=== PATIENT | female | born 1930 | race Hispanic/Latino ===

== ENCOUNTER 2017-01-13 10:02 | Day surgery (SDC) | payer MEDICARE, BC ==
[2016-03-26 16:55] VITALS: BMI 26.5
[2017-01-13] MEDS ORDERED: Bupivacaine 0.5% Inj(30mL) ONE (11:08)
[2017-01-13] MEDS ORDERED: Bupivacaine-Epi 0.25%-1:200,000 PF Inj ONE (11:08)
[2017-01-13] MEDS ORDERED: Bacitracin Ointment 30 GM TUBE ONE (11:24)
[2017-01-13] MEDS ORDERED: Lidocaine 1% Inj (20ml) IJ ONE ×2 (11:31)
--- NOTE | 2017-01-13 11:59 | PCM.SURG1 ---
Surgeon's Initial Post Op Note - Surgeon's Notes Surgeon: Dr. Peralta Remedy Developer: Godwin PGY1 Type of Anesthesia: Local Pre-Operative Diagnosis: Skin lesion R ear Operative Findings: see operative report Post-Operative Diagnosis: Skin lesion R ear Operation Performed: Punch biopsy of R ear skin lesion Specimen/Specimens Removed: 2 punch biopsies of R ear Estimated Blood Loss: EBL {In ML}: 2 Blood Products Given: N/A Drains Used: No Drains Post-Op Condition: Good Date of Surgery/Procedure: 01/13/17 Time of Surgery/Procedure: 11:15
[2017-01-13 12:06] VITALS: RESP 14; TEMP 98; O2SAT 95
[2017-01-13 12:08] VITALS: BP 172/72; PULSE 70
[2017-01-13] MEDS ORDERED: Lidocaine 1% Inj (20ml) ONE (12:09)
== END 2017-01-13 12:30 | disposition home or self-care (01) ==
LOC: OPSURG 10:02
PROVIDERS: ATTEND Surgery
DX: C44.212 Basal cell carcinoma of skin of right ear and external auricular canal (principal); I25.10 Atherosclerotic heart disease of native coronary artery without angina pectoris; E11.9 Type 2 diabetes mellitus without complications; G20 Parkinson's disease

== ENCOUNTER 2018-04-26 14:35 | Inpatient (IN) | payer MEDICARE, BC ==
[2018-04-26 14:50] VITALS: BMI 24.7
[2018-04-26] MEDS ORDERED: Bacitracin 500 Units/gm Oint Foilpak UD TOP ONE (15:16)
--- NOTE | 2018-04-26 15:23 | ED PDOC ---
Arrival/HPI <John Geller - Last Filed: 04/26/18 18:48> - General Historian: Patient - History of Present Illness Narrative History of Present Illness (Text): Patient is a 88 yr old female with PMH HTN, HLD, DM, and Parkinson's disease presents after multiple falls over the past 4-5 days. Patient is not the best historian but is here with her family who live in the apartment above her. They have noticed that she is more short of breath recently when ambulating in her apartment. Her fall was unwitnessed but she was able to call her son on the phone afterwards. She endorses pain in her left ankle which she "twisted" in one of the recent falls. She denies having hit her head or LOC. She indicates that she has had a cough and congestion over the past few days as well. She denies any ORTIZ, neck pain, SOB, CP, dizziness, abdominal pain, n/v, stool changes, dysuria and extremity weakness/numbness. 04/26/18 15:20 Time/Duration: Prior to Arrival, 1 week Symptom Onset: Gradual Symptom Course: Unchanged Context: Walking <Whitney Matthews - Last Filed: 04/26/18 19:12> - General Chief Complaint: Trauma Time Seen by Provider: 04/26/18 14:41 Past Medical History - Provider Review Nursing Documentation Reviewed: Yes - Infectious Disease Hx of Infectious Diseases: None - Tetanus Immunization Tetanus Immunization: Unknown - Reproductive Menopause: Yes - Cardiac Hx Cardiac Disorders: Yes Hx Hypertension: Yes - Pulmonary Hx Respiratory Disorders: Yes (SMOKES CIGARETTES 15 A DAY) - Neurological Hx Neurological Disorder: Yes Hx Parkinson's Disease: Yes - Endocrine/Metabolic Hx Diabetes Mellitus Type 2: Yes - Hematological/Oncological Hx Blood Transfusions: Yes - Integumentary Hx Dermatological Disorder: Yes - Musculoskeletal/Rheumatological Hx Falls: Yes (MULTIPLE) - Gastrointestinal Hx Gastrointestinal Disorders: Yes (GASTRIC CA-H/O HEMICOLECTOMY,GI BLEED) Hx Gastrointestinal Ulcer: Yes - Genitourinary/Gynecological Hx Genitourinary Disorders: Yes Hx Incontinence: Yes Hx Urinary Tract Infection: Yes - Psychiatric Hx Depression: Yes Hx Substance Use: No - Surgical History Hx Coronary Stent: Yes (01/22/13) Other/Comment: Ear Stent - Anesthesia Hx Anesthesia Reactions: No Hx Malignant Hyperthermia: No - Suicidal Assessment Feels Threatened In Home Enviroment: No <Whitney Matthews - Last Filed: 04/26/18 19:12> Family/Social History - Physician Review Nursing Documentation Reviewed: Yes Family/Social History: Unknown Family HX Smoking Status: Current Some Days Smoker Hx Alcohol Use: No Hx Substance Use: No Hx Substance Use Treatment: No <Whitney Matthews - Last Filed: 04/26/18 19:12> Allergies/Home Meds <John Geller - Last Filed: 04/26/18 18:48> <Whitney Matthews - Last Filed: 04/26/18 19:12> Allergies/Adverse Reactions: Allergies Penicillins Allergy (Verified 03/26/16 16:56) ANAPHYLAXIS Sulfa (Sulfonamide Antibiotics) Allergy (Verified 03/26/16 16:56) ANAPHYLAXIS Home Medications: Home Meds Medication Instructions Recorded Confirmed Carbidopa/Levodopa/Entacapone 1 tab PO TID 01/20/12 01/13/17 [Stalevo 50 12.5 mg-200 mg-50 mg] Desvenlafaxine Succinate [Pristiq] 50 mg PO DAILY 01/20/12 01/13/17 Rasagiline Mesylate [Azilect] 1 mg PO DAILY 09/23/13 01/13/17 Aspirin [Aspirin Chewable] 81 mg PO DAILY 02/06/16 01/13/17 Lisinopril [Zestril] 20 mg PO DAILY 02/06/16 01/13/17 Metoprolol Tartrate 25 mg PO BID 02/06/16 01/13/17 SITagliptin [Januvia] 100 mg PO DAILY 04/01/16 01/13/17 Glipizide [Glipizide Xl] 10 mg PO BID 01/13/17 01/13/17 Review of Systems - Physician Review All systems were reviewed & negative as marked: Yes - Review of Systems Constitutional: absent: Fatigue, Weight Change, Fevers Eyes: absent: Vision Changes ENT: absent: Hearing Changes Respiratory: Cough, Sputum. absent: SOB, Wheezing Cardiovascular: absent: Chest Pain, Syncope Gastrointestinal: absent: Abdominal Pain, Stool Changes, Constipation, Diarrhea, Nausea, Vomiting, Hematochezia, Hematemesis Genitourinary Female: absent: Dysuria Musculoskeletal: Arthralgias (left ankle), Joint Swelling (left ankle). absent: Back Pain, Neck Pain Skin: absent: Rash Neurological: absent: Headache, Dizziness, Focal Weakness, Facial Droop <Whitney Matthews - Last Filed: 04/26/18 19:12> Physical Exam Vital Signs Temp Pulse Resp BP Pulse Ox 04/26/18 15:26 98.1 F 89 18 141/87 95 <John Geller - Last Filed: 04/26/18 18:48> Vital Signs Reviewed: Yes Temperature: Afebrile Blood Pressure: Normal Pulse: Regular Respiratory Rate: Normal Appearance: Positive for: Well-Appearing, Non-Toxic, Comfortable Pain Distress: Mild Mental Status: Positive for: Alert and Oriented X 3 - Systems Exam Head: Present: Atraumatic, Normocephalic Extroacular Muscles: Present: EOMI Mouth: Present: Moist Mucous Membranes Neck: Present: Normal Range of Motion Respiratory/Chest: Present: Good Air Exchange. No: Respiratory Distress, Accessory Muscle Use Cardiovascular: Present: Regular Rate and Rhythm, Normal S1, S2. No: Murmurs Abdomen: No: Tenderness, Distention, Peritoneal Signs Upper Extremity: Present: Normal ROM, NORMAL PULSES, Other (multiple small ecchymotic areas consistent with multiple falls). No: Cyanosis, Edema, Tenderness, Swelling Lower Extremity: Present: Edema (left ankle), NORMAL PULSES, Tenderness (left ankle), Swelling (left ankle), Neurovascularly Intact, Capillary Refill < 2 s. No: CALF TENDERNESS, Normal ROM (decreased ROM d/t swelling at left nakle normal ROm in all other lowere extremity joints) Neurological: Present: GCS=15, CN II-XII Intact, Speech Normal Skin: Present: Warm, Dry, Other (ecchymotic swollen left ankle with abrasion over left ledial hallux, scattered ecchymosis over lower legs bilaterally) Psychiatric: Present: Alert, Oriented x 3, Normal Concentration. No: Normal Insight <Whitney Matthews - Last Filed: 04/26/18 19:12> Medical Decision Making ED Course and Treatment: 04/26/18 18:[address] meza. patient to be admitted for frequent falls, sustained left lateral mall fracture, rule out sepsis, consult to dr. hopper. patient is high risk for more falls and will require admission. - Lab Interpretations Lab Results: Total Bilirubin 0.5 mg/dL (0.2-1.3) 04/26/18 15:50 AST 34 U/L (14-36) 04/26/18 15:50 ALT 16 U/L (7-56) 04/26/18 15:50 Alkaline Phosphatase 101 U/L (38-126) 04/26/18 15:50 Total Protein 7.0 g/dL (5.8-8.3) 04/26/18 15:50 Albumin 3.4 g/dL (3.0-4.8) 04/26/18 15:50 Globulin 3.6 gm/dL 04/26/18 15:50 Albumin/Globulin Ratio 1.0 (1.1-1.8) L 04/26/18 15:50 - RAD Interpretation Narrative RAD Interpretations (Text): 04/26/18 18:22 cxr my read: no focal infiltrate, no ptx, no wide mediastinum Radiology Orders: 04/26/18 15:12 CERVICAL SPINE W/O CONTRAST [CT] Stat HEAD W/O CONTRAST [CT] Stat CHEST ONE VIEW [RAD] Stat ANKLE LEFT 3 VIEWS ROUTINE [RAD] Stat PELVIS ONE VIEW [RAD] Stat Director Of Undergraduate Admissions: ED Physician - Medication Orders Current Medication Orders: Discontinued Medications Bacitracin (Bacitracin) 1 ea TOP ONCE ONE Stop: 04/26/18 15:17 Oxycodone/Acetaminophen (Percocet 5/325 Mg Tab) 1 tab PO STAT STA Stop: 04/26/18 18:10 Last Admin: 04/26/18 18:21 Dose: 1 tab MAR Pain Assessment Document 04/26/18 18:21 [place] (Rec: 04/26/18 18:21 [place] [facility] [place]-ER-20) Pain Reassessment Is this a pain reassessment? No Sleep Is patient sleeping during reassessment? No Presence of Pain Presence of Pain Yes Pain Scale Used Protocol: PSCALES Pain Scale Used Numeric Location Left, Right or Bilateral Left Pain Location Body Site Ankle Description Intensity of Pain at present 6 <John Geller - Last Filed: 04/26/18 18:48> ED Course and Treatment: 04/26/18 15:39 Impression: 88 yr old female with HTN, HLD, Dm and Parkinsons disease presenting after multiple falls of unknown cause and swollen left ankle Plan: CBC CMP UA and culture CT head CT cervical spine CXR pelvis XR left ankle XR reassess and dispo 04/26/18 15:48 Pt complaining of pain in left ankle given percocet 04/26/18 18:[address] meza. patient to be admitted for frequent falls, sustained left lateral mall fracture, rule out sepsis, consult to dr. hopper. patient is high risk for more falls and will require admission. 04/26/18 18:48 - RAD Interpretation Radiology Orders: 04/26/18 15:12 CERVICAL SPINE W/O CONTRAST [CT] Stat HEAD W/O CONTRAST [CT] Stat CHEST TWO VIEWS (PA/LAT) [RAD] Stat ANKLE LEFT 3 VIEWS ROUTINE [RAD] Stat PELVIS ONE VIEW [RAD] Stat - Medication Orders Current Medication Orders: Bacitracin (Bacitracin) 1 ea TOP ONCE ONE Stop: 04/26/18 15:17 <Whitney Matthews - Last Filed: 04/26/18 19:12> Disposition/Present on Arrival - Present on Arrival Any Indicators Present on Arrival: No - Disposition Have Diagnosis and Disposition been Completed?: Yes Disposition Time: 18:49 Patient Plan: Admission <John Geller - Last Filed: 04/26/18 18:48> - Present on Arrival Any Indicators Present on Arrival: No History of DVT/PE: No History of Uncontrolled Diabetes: No Urinary Catheter: No History of Decub. Ulcer: No History Surgical Site Infection Following: None - Disposition Have Diagnosis and Disposition been Completed?: Yes Patient Plan: Admission <Whitney Matthews - Last Filed: 04/26/18 19:12> - Disposition Diagnosis: Falls frequently, Leukocytosis, Ankle fracture Disposition: HOSPITALIZED Condition: STABLE
[2018-04-26 16:27] LABS: ALBUMIN 3.4 g/dL (3.0-4.8); CALCIUM 8.4 mg/dL (8.4-10.5)
[2018-04-26 16:28] LABS: BASO # 0.02 K/mm3 (0.0-2.0); BASO % 0.1 % (0.0-3.0); LYMPH # 3.9 (1.2-3.4); LYMPH % 19.4 % (22.0-35.0); MEAN CELL VOLUME 89.6 fl (80.0-105.0); MEAN CORPUSCULAR HEMOGLOBIN 29.7 pg (25.0-35.0); MEAN CORPUSCULAR HGB CONC 33.1 g/dl (31.0-37.0); MEAN PLATELET VOLUME 9.6 fl (7.0-11.0); MONO # 1.2 (0.1-0.6); MONO % 5.8 % (1.0-6.0); RBC 3.37 10^6/uL (3.5-6.1); RED CELL DISTRIBUTION WIDTH 12.9 % (11.5-14.5)
--- NOTE | 2018-04-26 17:46 | CT ---
Date of service: 04/26/2018 PROCEDURE: CT HEAD WITHOUT CONTRAST. HISTORY: fall COMPARISON: Comparison is made to the previous study dated 03/26/2016 TECHNIQUE: Axial computed tomography images were obtained through the head/brain without intravenous contrast. Radiation dose: Total exam DLP = 934.93 mGy-cm. This CT exam was performed using one or more of the following dose reduction techniques: Automated exposure control, adjustment of the mA and/or kV according to patient size, and/or use of iterative reconstruction technique. FINDINGS: HEMORRHAGE: No evidence of acute intracranial hemorrhage intracranial collection mass effect or midline shift. BRAIN: Foci of encephalomalacia at right frontal and right temporal parietal lobes are again noted suggestive of old infarction. Volume loss and chronic microvascular white matter ischemic disease are also again noted. VENTRICLES: Unremarkable. No hydrocephalus. CALVARIUM: Unremarkable. PARANASAL SINUSES: Unremarkable as visualized. No significant inflammatory changes. MASTOID AIR CELLS: Unremarkable as visualized. No inflammatory changes. OTHER FINDINGS: None. IMPRESSION: No evidence of acute intracranial hemorrhage intracranial collection mass effect or midline shift. No significant interval changes noted since the previous exam.
--- NOTE | 2018-04-26 17:53 | CT ---
Date of service: 04/26/2018 PROCEDURE: CT Cervical Spine without contrast HISTORY: fall COMPARISON: None available. TECHNIQUE: Axial computed tomography images were obtained of the cervical spine without the use of intravenous contrast. Coronal and sagittal reformatted images were created and reviewed. Radiation dose: Total exam DLP = 449.96 mGy-cm. This CT exam was performed using one or more of the following dose reduction techniques: Automated exposure control, adjustment of the mA and/or kV according to patient size, and/or use of iterative reconstruction technique. FINDINGS: VERTEBRAE: No fracture. There is anterior spondylolisthesis noted at C7-T1. No destructive bony lesion. DISCS/SPINAL CANAL/NEURAL FORAMINA: There is a small to moderate size posterior osteophyte bulging disc complex at C3-C4, C4-C5 C5-C6 and C6-C7 which resulting in mild spinal and neural foraminal narrowing. There is severe narrowing of the intervertebral disc is space at C4-C5 and moderate to severe narrowing of the intervertebral disc is space at C5-C6 and C6-C7. PARASPINAL SOFT TISSUES: Unremarkable. OTHER FINDINGS: None IMPRESSION: No evidence of acute fracture or acute traumatic subluxation. Moderate to mildly severe degenerative changes as discussed above.
[2018-04-26] MEDS ORDERED: Oxycodone/Acetaminophen 5/325 mg Tab PO STA (18:09)
--- NOTE | 2018-04-26 18:20 | RAD ---
Date of service: 04/26/2018 PROCEDURE: Radiographs of the pelvis. HISTORY: fall COMPARISON: None. FINDINGS: BONES: Pelvic Bones: Diffuse osteopenic changes noted. No evidence of acute fracture P Hips: Osteoarthritic degenerative changes. JOINTS: Sacroiliac Joints: Osteoarthritic degenerative changes Pubic Symphysis: Arthritic changes. OTHER FINDINGS: Severe degenerative changes noted at L4-L5 IMPRESSION: No evidence of acute fracture or dislocation. Arthritic degenerative changes.
--- NOTE | 2018-04-26 18:22 | RAD ---
Date of service: 04/26/2018 PROCEDURE: Left Ankle Radiographs. HISTORY: fall COMPARISON: None available. FINDINGS: BONES: There is acute slightly displaced fracture at the distal left fibula. There is a small displaced bony fragment seen anterior to the left ankle joint likely from the distal fibula. JOINTS: Mild osteoarthritis.. Ankle mortise maintained. Talar dome intact SOFT TISSUES: Soft tissue swelling seen around the left OTHER FINDINGS: Ankle. IMPRESSION: Acute displaced fracture at the distal left fibula. Small bony fragment seen anterior to the left ankle joint of uncertain donor likely from the distal fibula.
--- NOTE | 2018-04-26 18:23 | RAD ---
Date of service: 04/26/2018 PROCEDURE: CHEST RADIOGRAPH, 1 VIEW HISTORY: fall COMPARISON: 04/14/2017 FINDINGS: LUNGS: No evidence of new infiltrate or consolidation in the lungs. Mild pulmonary vascular congestion. PLEURA: No pneumothorax or pleural fluid seen. CARDIOVASCULAR: No aortic atherosclerotic calcification present. Normal. OSSEOUS STRUCTURES: No significant abnormalities. VISUALIZED UPPER ABDOMEN: Normal. OTHER FINDINGS: None. IMPRESSION: Mild pulmonary vascular congestion.
[2018-04-26 18:51] LABS: VENOUS BLOOD GAS PO2 30 mm/Hg (30-55); VENOUS BLOOD PH 7.35 (7.32-7.43)
[2018-04-26 19:08] LABS: PH,URINE 5.5 (4.7-8.0); URINE APPEARANCE SL CLOUDY (CLEAR); URINE BILIRUBIN NEGATIVE (NEGATIVE); URINE BLOOD MODERATE (NEGATIVE); URINE COLOR AMBER (YELLOW); URINE GLUCOSE (UA) 100 mg/dL (NEGATIVE); URINE LEUKOCYTE ESTERASE NEGATIVE Leu/uL (NEGATIVE); URINE PROTEIN 100 mg/dL (<30 mg/dL); URINE UROBILINOGEN 0.2 E.U./dL (<1 E.U./dL)
[2018-04-26 19:14] LABS: URINE AMORPHOUS SEDIMENT MODERATE /hpf; URINE BACTERIA SMALL /hpf; URINE RBC 25 - 30 /hpf (0-2)
[2018-04-26] MEDS ORDERED: Sodium Chloride 0.9% 1,000 ML IV SCH (20:30)
[2018-04-26] MEDS: Morphine 2 mg/ml ISec IVP PRN (21:45)
[2018-04-26] MEDS: Insulin Reg-MEDIUM-Coverage SC SCH (23:03)
--- NOTE | 2018-04-27 00:06 | HP ---
HISTORY OF PRESENT ILLNESS: The patient is an 88-year-old woman with a past medical history of Parkinson disease with recurrent falls who presented s/p mechanical fall with resultant left ankle trauma. The patient has been noted by her son to be deteriorating over the past several weeks and has fallen multiple times at home. Arrangements were being made for home services and physical therapy. On the day of presentation to the ED the patient sustained another mechanical fall with resultant trauma to her left ankle. She reported immediate onset of severe pain and inability to bear weight as well as edema and bruising. Due to the severe pain she was brought to the ED for evaluation. In the ED she was afebrile and hemodynamically stable but a moderate distress secondary to left ankle pain. An x-ray demonstrated an acute displaced fracture to the distal left fibula. She was started on analgesics and subsequently admitted for orthopedic evaluation. PAST MEDICAL HISTORY: As per HPI, also the anemia of chronic disease, hypertension, CAD s/p PCI with stent placement, non-insulin dependent diabetes mellitus, remote history of gastric cancer s/p ex-lap s/p subtotal gastrectomy, history of chronic lymphocytic leukemia and a remote history of CVA. PAST SURGICAL HISTORY: Exploratory laparotomy with subtotal gastrectomy. ALLERGIES: Penicillin and sulfas. MEDICATIONS: Januvia 50 mg p.o. daily, Glyburide 5 mg p.o. b.i.d., Stalevo 150 mg p.o. t.i.d., Lopressor 12.5 mg p.o. b.i.d., Lisinopril 10 mg p.o. daily, Aspirin 81 mg p.o. daily, Pristiq 50 mg p.o. daily and Azilect 1 mg p.o. daily. FAMILY HISTORY: Noncontributory. SOCIAL HISTORY: The patient reports a former 30 pack-year smoking history. She denies alcohol use or illicit drug abuse. REVIEW OF SYSTEMS: Positive for unsteady gait, weakness and recurrent falls. Negative for chest pain, palpitations, orthopnea, lower extremity edema, claudication fevers, chills, rigors, nausea, vomiting or diarrhea. PHYSICAL EXAMINATION: VITAL SIGNS: Temperature 98.1, pulse 89, blood pressure 141/87, respiratory rate 18, oxygen saturation 95% on room air. GENERAL: Elderly woman appearing her stated age, lying in bed in moderate distress secondary to left ankle pain. HEENT: PERRL, EOMI. No scleral icterus. Conjunctival pallor is noted. NECK: No JVD. CARDIOPULMONARY: Regular rate and rhythm. Normal S1, S2. LUNGS: Clear to auscultation. ABDOMEN: Normoactive bowel sounds. Soft, nontender, nondistended. EXTREMITIES: No edema. Left ankle with mild edema and bruising tender to palpation. NEUROLOGIC: Awake, alert and oriented x 3. No focal motor deficits. LABORATORY DATA: WBC 20 with 75% neutrophils, hemoglobin 10, hematocrit 30, platelets 297. Sodium 138, potassium 4.3, chloride 107, bicarb 24, BUN 26, creatinine 1.5, glucose 254. IMAGING STUDIES: 1. Chest x-ray demonstrates mild pulmonary vascular congestion. 2. Left ankle x-ray demonstrates acute displaced fracture to the left distal fibula. 3. Pelvic x-ray demonstrates arthritic changes but otherwise no acute pathology. 4. CT of the head without contrast demonstrates no acute pathology. 5. CT of the C-spine without contrast demonstrates moderate to severe degenerative changes but otherwise no acute pathology. ASSESSMENT: The patient is an 88-year-old woman with a past medical history of Parkinson disease with recurrent falls who presented s/p mechanical fall with resultant left ankle fracture. PLAN: 1. Acute displaced fracture of the distal left fibula. Orthopedic evaluation with Dr. Hendrix is pending. We will start Morphine 0.5 mg IV q. 6 hours p.r.n. pain. We will start Colace 100 mg p.o. b.i.d. for bowel regimen. The patient is an intermediate risk patient for an intermediate risk procedure and may proceed to the OR without further cardiopulmonary evaluation. 2. CAD s/p PCI with stent placement. Resume Lopressor 12.5 mg p.o. b.i.d. and Aspirin 81 mg p.o. daily. The patient dclines statin therapy due to history of myopathy. 3. Hypertension. Blood pressure controlled. Resume Lopressor 12.5 mg p.o. b.i.d. and lisinopril 10 mg p.o. daily. 4. Parkinson disease. Resume Stalevo 150 mg p.o. t.i.d. 5. Anemia of chronic disease. Labs demonstrate stable Hb. We will continue to monitor CBC daily and transfuse as needed. 6. Non-insulin dependent diabetes mellitus. We will repeat a HbA1c. Start medium-dose insulin sliding scale for coverage. Monitor fingerstick. 7. History of gastric cancer s/p subtotal gastrectomy. 8. History of chronic lymphocytic leukemia. 9. Acute kidney injury, likely secondary to prerenal azotemia. We will start gentle IV fluid hydration with NS at 75 mL per hour. 10. Prophylaxis. GI prophylaxis not indicated as the patient is eating. Continue with Heparin for DVT prophylaxis. CODE STATUS: Full code. Antonio Devi MD [facility]
[2018-04-27] MEDS: Morphine 2 mg/ml ISec IVP PRN ×2 (04:54→09:35)
[2018-04-27 06:52] LABS: BASO # 0.01 K/mm3 (0.0-2.0); BASO % 0.1 % (0.0-3.0); HEMOGLOBIN 8.9 g/dL (12.0-16.0); LYMPH # 3.5 (1.2-3.4); MEAN CELL VOLUME 89.4 fl (80.0-105.0); MEAN CORPUSCULAR HEMOGLOBIN 29.4 pg (25.0-35.0); MEAN CORPUSCULAR HGB CONC 32.8 g/dl (31.0-37.0); MEAN PLATELET VOLUME 9.2 fl (7.0-11.0); MONO % 6.1 % (1.0-6.0); RBC 3.03 10^6/uL (3.5-6.1); RED CELL DISTRIBUTION WIDTH 12.9 % (11.5-14.5); WHITE BLOOD COUNT 15.7 10^3/uL (4.5-11.0)
[2018-04-27 07:00] LABS: INR 1.23; PROTHROMBIN TIME 13.9 SECONDS (9.4-12.5)
[2018-04-27 07:25] LABS: ALB/GLOB RATIO 0.9 (1.1-1.8); CALCIUM 7.9 mg/dL (8.4-10.5)
[2018-04-27] MEDS: Insulin Reg-MEDIUM-Coverage SC SCH ×3 (09:26→17:25)
[2018-04-27] MEDS: Carbidopa/Levodopa/Entacapone 37.5mg-150mg-200mg PO SCH ×3 (09:38→17:26)
--- NOTE | 2018-04-27 10:13 | CARD ---
APPROVED REPORT Date of service: 04/26/2018 EKG Measurement Heart [id number] <Conclusion> Normal sinus rhythm Left axis deviation Incomplete left bundle branch block Left ventricular hypertrophy with repolarization abnormality Abnormal ECG
--- NOTE | 2018-04-27 12:12 | PN ---
SUBJECTIVE: The patient was seen and examined at bedside on the general medical gurrola. No acute events overnight. She has been evaluated by Dr. Hendrix of Orthopedic Surgery and recommendations were made for conservative medical management. This morning she feels okay but states her pain is not adequately controlled with her current analgesic regimen. Otherwise she offers no complaints. OBJECTIVE: VITAL SIGNS: Temperature 99, pulse 109, blood pressure 107/53, respiratory rate 20, oxygen saturation 93% on room air. GENERAL: Elderly woman, appearing her stated age, lying in bed in no apparent distress. HEENT: PERRL, EOMI. No scleral icterus. Conjunctival pallor is noted. NECK: No JVD. LUNGS: Clear to auscultation. CARDIOVASCULAR: Regular rate and rhythm. Normal S1 and S2. ABDOMEN: Normoactive bowel sounds. Soft, nontender, nondistended. EXTREMITIES: Left ankle with River wrapping in place with ecchymosis noted. NEUROLOGIC: Awake, alert and oriented x 3. No focal motor deficits. LABORATORY DATA: WBC 15.7 with 72% neutrophils, hemoglobin 8.9, hematocrit 27, platelets 276. Sodium 136, potassium 4.2, chloride 110, bicarb 22, BUN 26, creatinine 1.4, glucose 210. ASSESSMENT: The patient is an 88-year-old woman with a past medical history of Parkinson disease with recurrent falls who presented s/p mechanical fall with resultant left ankle fracture. PLAN: 1. Acute fracture of the distal left fibula. Input from Dr. Hendrix noted and no need for acute surgical intervention. Recommendations were made for conservative medical management. PT evaluation pending. Continue with care as per Dr. Hendrix. We will change analgesics to Morphine 0.5 mg IV q. 4 hours p.r.n. pain. Continue Colace 100 mg p.o. b.i.d. for bowel regimen. 2. CAD s/p PCI with stent placement. Continue Lopressor 12.5 mg p.o. b.i.d. and Aspirin 81 mg p.o. daily. The patient is not on statin therapy due to history of myopathy. 3. Hypertension. BP controlled. Continue Lopressor 12.5 mg p.o. b.i.d. and Lisinopril 10 mg p.o. daily. 4. Parkinson disease. Continue Stalevo 150 mg p.o. t.i.d. 5. Anemia of chronic disease. Continue to monitor CBC and transfuse as needed. 6. Non-insulin dependent diabetes mellitus. Repeat A1c pending. Continue medium-dose insulin sliding scale for coverage. Monitor fingersticks 7. History of gastric cancer s/p subtotal gastrectomy 8. History of chronic lymphocytic leukemia. 9. Prophylaxis. GI prophylaxis not indicated as the patient is eating. Continue with Heparin for DVT prophylaxis. CODE STATUS: Full code. Antonio Devi MD [facility]
--- NOTE | 2018-04-27 19:21 | CON ---
DATE: 04/27/2018 ORTHOPEDIC CONSULTATION LOCATION: Room 562, bed 1. HISTORY OF PRESENT ILLNESS: The patient is an 88-year-old female who lives alone, slipped and fell by history from her daughter about a week ago, then she re-fell last night and aggravated the preexisting injury from a week ago. The left ankle is ecchymotic, both medially and laterally, but has minimal pain on the medial side where the deltoid ligament is, but the fracture is on the lateral malleolus, which is minimally displaced and very distal, so we will treat her without surgery. When the swelling goes down, we will put her on a medium-sized removable cast boot when the swelling and pain subside. Actually she should be going to a facility that will watch her closer than living at home alone, so the social media senior associate hopefully could help her provide a place at [facility] for 3 to 4 weeks until she gets on her feet and probably will not be able to put the fracture boot on until the swelling and pain subside in 2 to 3 days. FINAL DIAGNOSIS: Stable left ankle fracture, compatible with conservative therapy, which is a removable cast boot once the swelling goes down in 2 to 3 days. I will follow her closely if and when she goes to subacute rehab at [facility]. Anil Hendrix DO [facility]
[2018-04-28] MEDS: Insulin Reg-MEDIUM-Coverage SC SCH ×5 (00:15→23:07)
[2018-04-28] MEDS ORDERED: levoFLOXacin 750 mg in D5W 750 MG/150 ML BAG IVPB SCH (01:00)
--- NOTE | 2018-04-28 01:25 | CP.PCM.PN ---
<Shravan Dunne - Last Filed: 04/28/18 01:16> Subjective - Date & Time of Evaluation Date of Evaluation: 04/28/18 Time of Evaluation: 01:16 - Subjective Subjective: Came to bedside to evaluate pt for reported O2 sat of 82%; per RN pt had earlier order of Duonebs q4 h prn that fell off and needed renewal of order. At arrival to bedside pt was receiving duoneb treatment by respiratory therapist and was tachypneic, tachycardic, and demonstrating worsening shortness of breath on exam. Per RN this is the first time pt has had this episode. Pt admitted for L ankle fracture s/p fall, prior PMhx Parkinson's disease with recurrent falls, anemia of chronic disease, HTN, CAD s/p PCI with stent placement, NIDDM, remote hx gastric ca s/p ex-lap s/p subtotal gastrectomy, hx CLL and remote hx CVA. Further HPI and ROS unobtainable due to current mental status of pt. Exam: VS: BP 190/115, P 140, O2 sat 90% on 50% FiO2 Gen: uncomfortable appearing HEENT: NCAT, PERRLA Heart: normal S1/s2, no m/r/g, tachycardic Lungs: crackles heard in lower lung bases b/l, more prominent on R side Abd: soft, NTND, normal BS x4 Exts: no c/c/e Neuro: AAOx2, no gross deficits on exam A/P: 88 F PMHx Parkinson's disease with recurrent falls, anemia of chronic disease, HTN, CAD s/p PCI with stent placement, NIDDM, remote hx gastric ca s/p ex-lap s/p subtotal gastrectomy, hx CLL and remote hx CVA, admitted for L ankle fx s/p fall. Presenting with worsening sob. R/o PNA, CHF as etiologies. -Stat CXR done, possibly demonstrates worsening consolidation developing in RLL compared to prior study -Lasix 40 mg IVP x1 -Start Levaquin IVPB for possible CAP, renally dosed -Can give Morphine to make pt more comfortable and improve worsening shortness o f breath -Procal ordered -Blood + urine cxs pending from admission -Pt placed on Venti Mask at 50% FiO2 with improvement in O2 sat to 50% -Continue to monitor Case discussed with hospitalist, Dr. Thapa. Further recommendations as per Dr. Thapa. Shravan Dunne DO PGY-1, [employer] Pager #[phone] Objective - Vital Signs/Intake and Output Vital Signs (last 24 hours): Temp Pulse Resp BP Pulse Ox 100.1 F H 125 H 20 138/83 93 L 04/27/18 14:00 04/27/18 17:27 04/27/18 14:00 04/27/18 17:27 04/27/18 14:00 Intake and Output: 04/27/18 04/28/18 18:59 06:59 Intake Total 120 Balance 120 - Medications Medications: Current Medications Acetaminophen (Tylenol 325mg Tab) 650 mg PO Q6H PRN PRN Reason: Fever >100.4 F Albuterol/Ipratropium (Duoneb 3 Mg/0.5 Mg (3 Ml) Ud) 3 ml IH [id number] PRN PRN Reason: Shortness of Breath Aspirin (Aspirin Chewable) 81 mg PO DAILY [facility] Last Admin: 04/27/18 09:38 Dose: 81 mg Carbidopa/Levodopa/Entacapone (Stalevo 150) 1 tab PO TID STEVEN Last Admin: 04/27/18 17:26 Dose: 1 tab Docusate Sodium (Colace) 100 mg PO BID [facility] Last Admin: 04/27/18 17:33 Dose: 100 mg Heparin Sodium (Porcine) (Heparin) 5,000 units SC Q8 [facility]; Protocol Last Admin: 04/27/18 22:25 Dose: 5,000 units Levofloxacin/Dextrose (Levaquin 750mg) 750 mg in 150 mls @ 100 mls/hr IVPB Q48H [facility]; Protocol Insulin Human Regular (Humulin R Med) 0 units SC ACHS [facility]; Protocol Last Admin: 04/28/18 00:15 Dose: Not Given Lisinopril (Zestril) 10 mg PO DAILY [facility] Last Admin: 04/27/18 09:37 Dose: 10 mg Metoprolol Tartrate (Lopressor) 12.5 mg PO BID [facility] Last Admin: 04/27/18 17:27 Dose: 12.5 mg Morphine Sulfate (Morphine) 0.5 mg IVP Q4 PRN PRN Reason: Pain, moderate (4-7) Last Admin: 04/27/18 09:35 Dose: 0.5 mg - Labs Labs: 04/27/18 06:30 04/27/18 06:30 PT 13.9 SECONDS (9.4-12.5) H 04/27/18 06:30 INR 1.23 04/27/18 06:30 <Joselyn Thapa - Last Filed: 04/28/18 02:02> Objective - Vital Signs/Intake and Output Vital Signs (last 24 hours): Temp Pulse Resp BP Pulse Ox 100.1 F H 125 H 20 193/120 H 93 L 04/27/18 14:00 04/27/18 17:27 04/27/18 14:00 04/28/18 01:47 04/27/18 14:00 Intake and Output: 04/27/18 04/28/18 18:59 06:59 Intake Total 120 Balance 120 - Medications Medications: Current Medications Acetaminophen (Tylenol 325mg Tab) 650 mg PO Q6H PRN PRN Reason: Fever >100.4 F Last Admin: 04/28/18 01:29 Dose: 650 mg Albuterol/Ipratropium (Duoneb 3 Mg/0.5 Mg (3 Ml) Ud) 3 ml IH [id number] PRN PRN Reason: Shortness of Breath Aspirin (Aspirin Chewable) 81 mg PO DAILY [facility] Last Admin: 04/27/18 09:38 Dose: 81 mg Carbidopa/Levodopa/Entacapone (Stalevo 150) 1 tab PO TID [facility] Last Admin: 04/27/18 17:26 Dose: 1 tab Docusate Sodium (Colace) 100 mg PO BID [facility] Last Admin: 04/27/18 17:33 Dose: 100 mg Heparin Sodium (Porcine) (Heparin) 5,000 units SC Q8 [facility]; Protocol Last Admin: 04/27/18 22:25 Dose: 5,000 units Levofloxacin/Dextrose (Levaquin 750mg) 750 mg in 150 mls @ 100 mls/hr IVPB Q48H [facility]; Protocol Last Admin: 04/28/18 01:29 Dose: 100 mls/hr Insulin Human Regular (Humulin R Med) 0 units SC ACHS [facility]; Protocol Last Admin: 04/28/18 00:15 Dose: Not Given Lisinopril (Zestril) 10 mg PO DAILY [facility] Last Admin: 04/27/18 09:37 Dose: 10 mg Metoprolol Tartrate (Lopressor) 12.5 mg PO BID [facility] Last Admin: 04/27/18 17:27 Dose: 12.5 mg Morphine Sulfate (Morphine) 0.5 mg IVP Q4 PRN PRN Reason: Pain, moderate (4-7) Last Admin: 04/28/18 01:27 Dose: 0.5 mg - Labs Labs: 04/27/18 06:30 04/27/18 06:30 PT 13.9 SECONDS (9.4-12.5) H 04/27/18 06:30 INR 1.23 04/27/18 06:30 Attending/Attestation - Attestation I have personally seen and examined this patient.: Yes I have fully participated in the care of the patient.: Yes I have reviewed all pertinent clinical information, including history, physical exam and plan: Yes Notes (Text): 04/28/18 01:56 Patient was seen at bedside. BP 193/150,HR 135/min Temp 100.1*F, RR 28/min, pullse ox 90 % on 50 % VM, Bilateral extensive rales on auscultation. Complains of sob, denies chest pain, nausea, palpitation, sweating. Medical record was reviewed,agree with documentation. Will also give additional Lasix 80 mg IV, Nitropaste 2" topically stat, Morphine sulfate 2 mg IV stat, (In addition to 0.5mg that patient received), Stat EKG , serial EKG and troponin level , increase oxygen by VM to 70%. Instructed nurse to call around 6:45 AM and get an order for Cardiology consult.
[2018-04-28] MEDS: Morphine 2 mg/ml ISec IVP PRN (01:27)
[2018-04-28] MEDS ORDERED: Nitroglycerin 2% Ointment Foilpak UD TOP STA (01:31)
[2018-04-28] MEDS ORDERED: Morphine 2 mg/ml ISec IVP STA (01:33)
[2018-04-28 09:03] LABS: BASO # 0.01 K/mm3 (0.0-2.0); LYMPH # 3.4 (1.2-3.4); LYMPH % 12.4 % (22.0-35.0); MEAN CELL VOLUME 91.9 fl (80.0-105.0); MEAN CORPUSCULAR HEMOGLOBIN 30.2 pg (25.0-35.0); MEAN CORPUSCULAR HGB CONC 32.8 g/dl (31.0-37.0); MEAN PLATELET VOLUME 9.3 fl (7.0-11.0); MONO # 0.8 (0.1-0.6); MONO % 2.9 % (1.0-6.0); PLATELET COUNT 281 10^3/uL (120.0-450.0); RBC 2.98 10^6/uL (3.5-6.1); RED CELL DISTRIBUTION WIDTH 13.2 % (11.5-14.5)
[2018-04-28 09:05] LABS: WHITE BLOOD COUNT 27.7 10^3/uL (4.5-11.0)
[2018-04-28 09:20] LABS: ATYPICAL LYMPHOCYTE 2 % (0.0-0.0); BAND 2 % (0-2)
[2018-04-28 09:21] LABS: ANISOCYTOSIS 1+; HYPOCHROMIA 1+; LYMPHOCYTE 13 % (22.0-35.0); MONOCYTE 3 % (1.0-6.0); NEUTROPHIL 80 % (50.0-70.0); PLATELET ESTIMATE NORMAL (NORMAL); POLYCHROMASIA SLIGHT
[2018-04-28 09:22] LABS: TOXIC GRANULATION 1+
[2018-04-28 09:27] LABS: ALB/GLOB RATIO 0.9 (1.1-1.8)
[2018-04-28] MEDS ORDERED: Ciprofloxacin 400mg/200ml D5W 400 MG/200 ML BAG IVPB SCH (10:00)
--- NOTE | 2018-04-28 10:08 | PN ---
SUBJECTIVE: The patient was seen and examined at bedside on the telemetry gurrola. Overnight she developed respiratory distress after removing her nasal cannula. She was found to be in sinus tachycardia with a pulse in the 140s and hypoxic with an oxygen saturation of 80%. She also complained of chest pain associated with these symptoms. She was evaluated by the house physician and received Lasix IV, placed on a Venti-mask and subsequently transferred to the telemetry gurrola for closer monitoring. Of note she had an elevated troponin level and was started on a Heparin drip. This morning she feels ok and reports resolution of her dyspnea and chest discomfort. She denies fevers, chills or rigors. OBJECTIVE: VITAL SIGNS: Temperature 98, pulse 115, blood pressure 118/74, respiratory rate 20 and oxygen saturation 100% on 50% NRB mask. GENERAL: Elderly woman, appearing her stated age, lying in bed in no apparent distress. HEENT: PERRL, EOMI. No scleral icterus. Conjunctival pallor is noted. NECK: No JVD. LUNGS: Scattered rhonchi. CARDIOVASCULAR: Tachycardic. Normal S1 and S2. ABDOMEN: Normoactive bowel sounds. Soft, nontender, and nondistended. EXTREMITIES: Left ankle with River wrapping in place with ecchymosis noted. NEUROLOGIC: Awake, alert and oriented x 3. No focal motor deficits. LABORATORY DATA: Morning labs are pending. Troponin 0.17. Blood cultures negative. ASSESSMENT: The patient is an 88-year-old woman with a past medical history of Parkinson disease with recurrent falls who was initially admitted to the general medical gurrola s/p mechanical fall with resultant left ankle fracture and was subsequently transferred to the telemetry gurrola for management of NSTEMI. PLAN: 1. NSTEMI. Cardiac evaluation with Dr. Page is pending. The patient has been started on Plavix 75 mg p.o. daily by the house physician in addition to her Aspirin 81 mg p.o. daily. We will increase Metoprolol to 25 mg p.o. b.i.d, start Heparin drip and cycle cardiac enzymes for 3 sets. Continue with telemetry monitoring. 2. Acute fracture of the distal left fibula. Input from Dr. Hendrix noted and no need for acute surgical intervention. Continue with conservative medical management. PT evaluation pending. Continue with care as per Dr. Hendrix. Continue with Morphine 0.5 mg IV q. 4 hours p.r.n. pain and Colace 100 mg p.o. b.i.d. for bowel regimen. 3. CAD s/p PCI with stent placement. As above evaluation is pending with Dr. Page. Continue with care as per #1. 4. UTI. Start Ciprofloxacin 400 mg IV daily. 5. Hypertension. Blood pressure elevated. Continue Lisinopril 10 mg p.o. daily and increase Metoprolol to 25 mg p.o. b.i.d. 6. Parkinson disease. Continue Stalevo 150 mg p.o. t.i.d. 7. Anemia of chronic disease. Continue to monitor CBC and transfuse as needed. 8. Non-insulin dependent diabetes mellitus, well-controlled with most recent A1c of 7.2. Continue medium-dose insulin sliding scale for coverage. Resume Januvia 50 mg p.o. daily and Glyburide 5 mg p.o. b.i.d. Monitor fingersticks. 9. History of gastric cancer s/p subtotal gastrectomy. 10. History of chronic lymphocytic leukemia. 11. Prophylaxis. GI prophylaxis not indicated as the patient is eating. DVT prophylaxis not indicated as the patient is on Heparin drip. CODE STATUS: Full code. Antonio Devi MD MTDD
[2018-04-28] MEDS: Carbidopa/Levodopa/Entacapone 37.5mg-150mg-200mg PO SCH ×3 (10:44→18:30)
--- NOTE | 2018-04-28 10:48 | CARD ---
APPROVED REPORT Date of service: 04/28/2018 EKG Measurement Heart [id number] <Conclusion> Normal sinus rhythm Left axis deviation Minimal voltage criteria for LVH, may be normal variant Anterior infarct, age undetermined ST & T wave abnormality, consider lateral ischemia non sp. IVCD Abnormal ECG
--- NOTE | 2018-04-28 10:57 | CARD ---
APPROVED REPORT Date of service: 04/28/2018 EKG Measurement Heart [id number] 152P [id number] <Conclusion> Sinus tachycardia Left axis deviation Left ventricular hypertrophy with QRS widening and repolarization abnormality Abnormal ECG
[2018-04-28] MEDS: Heparin25000 units/250ml 1/2NS 25,000 UNITS/250 ML BAG IV SCH (13:13)
--- NOTE | 2018-04-28 14:24 | PN ---
DATE: 04/28/2018 LOCATION: Room 266, bed 1. SUBJECTIVE: An 88-year-old female with fracture of her ankle on the left side. Stable lateral malleolar fracture treated conservatively with a walking boot. There is no evidence of a disrupted deltoid ligament, so I am waiting for actual boot come in, but because of the bad weather situation, therapy said she may not get it for a couple of days, so I will leave her with a prescription as she goes to subacute rehab, they could get one at the facility that she is going to; however, she states this is a TCU which will just provide for it here when they get delivery of the boot. They will take the cast off that she has because she is able to put weight on the left ankle with a walker and that will take 6 to 8 weeks to heal. Anil Hendrix DO
--- NOTE | 2018-04-28 14:35 | RAD ---
Date of service: 04/28/2018 HISTORY: SOB COMPARISON: 04/26/2018 FINDINGS: LUNGS: No active pulmonary disease. PLEURA: No significant pleural effusion identified, no pneumothorax apparent. CARDIOVASCULAR: Atherosclerotic calcifications identified primarily aortic arch. Cardiomegaly. Acute pulmonary edema. OSSEOUS STRUCTURES: No significant abnormalities. VISUALIZED UPPER ABDOMEN: Normal. OTHER FINDINGS: None. IMPRESSION: Acute, presumed cardiogenic pulmonary edema.
--- NOTE | 2018-04-28 17:20 | CON ---
DATE: 04/28/2018 CARDIOLOGY CONSULTATION HISTORY: The patient is an 88-year-old woman, who presented after a fall with fracture of the left ankle. The patient has had recurrent falls recently. She denies syncope. PAST MEDICAL HISTORY: The patient's past medical history is notable for Parkinson's as well as diabetes mellitus. She is unaware of any cardiac history; however, she does have cardiac risk factors including hypertension and diabetes mellitus. SOCIAL HISTORY: There is no history of smoking that is elicited. REVIEW OF SYSTEMS: Fourteen-point review of systems is reviewed in detail. She denies dyspnea. Denies edema in the lower extremities. No angina noted. PHYSICAL EXAMINATION: VITAL SIGNS: Blood pressure is 118/74, heart rate is sinus tachycardia at 100. NECK: Negative JVD. LUNGS: Without rales. HEART: Reveals S1, S2 with a soft systolic ejection murmur. EXTREMITIES: Without edema. LABORATORY DATA: BUN and creatinine is 39 and 2.1 with a glucose of 333. Troponins are elevated to 1.52, hemoglobin is 9 with a white count up to 27,000. IMPRESSION: 1. Status post fall. 2. [id number] myocardial infarction. 3. Renal insufficiency. 4. Anemia. 5. Diabetes mellitus. 6. Hypertension. 7. Parkinson's. Given these findings, the patient would be at high risk for any surgical intervention for her ankle. We will obtain an echocardiogram to evaluate her LV function. We will start the patient on aspirin as well as beta-blockers. Heparin has been ordered. Eddi Page MD
--- NOTE | 2018-04-28 18:25 | CARD ---
APPROVED REPORT Date of service: 04/28/2018 EXAM: Two-dimensional and M-mode echocardiogram with Doppler and color Doppler. INDICATION Congestive Heart Failure 2D DIMENSIONS Left Atrium (2D)3.8 (1.6-4.0cm)IVSd1.0 (0.7-1.1cm) LVDd4.5 (3.9-5.9cm)PWd1.3 (0.7-1.1cm) LVDs3.5 (2.5-4.0cm)FS (%) 23.4 % LVEF (%)47.0 (>50%) M-Mode DIMENSIONS Aortic Root3.00 (2.2-3.7cm)Aortic Cusp Exc.0.80 (1.5-2.0cm) Aortic Valve AoV Peak Zchfizyi333.0cm/Lisy Peak GR.4mmHg Mitral Valve MV E Bykktrbl574.0cm/sMV A Oguqbzks14.5cm/sE/A ratio1.5 TDI E/Lateral E'0.0E/Medial E'0.0 Tricuspid Valve TR Peak [id number] [id number] Peak Gr.37mmHg [id number] LEFT VENTRICLE The left ventricle is normal size. There is normal left ventricular wall thickness. The systolic function is moderately impaired. Apical and septal hypokinesis Transmitral Doppler flow pattern is Grade II-pseudonormal filling dynamics. RIGHT VENTRICLE The right ventricle is normal size. There is normal right ventricular wall thickness. The right ventricular systolic function is normal. ATRIA The left atrium size is normal. The right atrium size is normal. AORTIC VALVE The aortic valve is not well visualized. No aortic regurgitation is present. There is no aortic valvular stenosis. MITRAL VALVE The mitral valve is mildly thickened. Mitral regurgitation is moderate. TRICUSPID VALVE There is moderate tricuspid regurgitation. There is mild to moderate pulmonary hypertension. PULMONIC VALVE There is trace pulmonic valvular regurgitation. GREAT VESSELS The aortic root is normal in size. PERICARDIAL EFFUSION There is a trace pericardial effusion. <Conclusion> The left ventricle is normal size. There is normal left ventricular wall thickness. The systolic function is moderately impaired. Apical and septal hypokinesis Transmitral Doppler flow pattern is Grade II-pseudonormal filling dynamics. Mitral regurgitation is moderate. There is moderate tricuspid regurgitation. There is mild to moderate pulmonary hypertension.
[2018-04-28] MEDS: Albuterol-Ipratrop 3 mg / 0.5 (3 ml) UD IH PRN (22:16)
[2018-04-29] MEDS ORDERED: Labetalol 5mg/ml (4ml) IV STA (01:57)
[2018-04-29] MEDS ORDERED: Propofol 10 mg/ml 1,000 MG/100 ML VIAL IV PRN (02:00)
--- NOTE | 2018-04-29 02:02 | CP.PCM.CON ---
<Nagi Vazquez - Last Filed: 04/29/18 04:15> History of Present Illness - History of Present Illness History of Present Illness: ICU Consultation CC: Hypoxic Respiratory Failure HPI: Mrs. Finnegan is an 88 year old female with a past medical history significant for Right ICA Stenosis s/p CEA, HTN, HLD, DM2, and Parkinson's disease who originally presented for ankle pain s/p multiple falls. Shortly after admission, patient was found to have an NSTEMI, was started on Heparin gtt and placed on telemetry monitoring at that time. An PRODUCTION POTTER was called on the patient while on telemetry monitoring for unresponsiveness, SOB, agonal breathing and hypoxia documented as low as 87%. During the PRODUCTION POTTER, the patient was noted to have bradycardia with a HR in the 30's, for which one dose of Atropine was given. Patient then became pulseless, in PEA, and a Code Blue was called. Several rounds of ACLS were performed with three doses of epinephrine given. Patient was also started on a Dopamine gtt as she was hypotensive but this quickly resolved, with systolic BP >200mmHg, and this was discontinued. Patient was intubated during the Code Blue for airway protection. She was then transferred to the ICU for further management. Of note, patient was noted to have tonic clonic jerking motion for approximately 1-2 minutes after ACLS. Patient is currently unresponsive and HPI/ROS are unobtainable at this time. PMH: As stated above PSH: CEA (2012) Family History: Unknown Social History: Current some days smoker; No documented history of alcohol or illicit drug abuse Allergies: PCN, Sulfa Drugs Home Medications: As per MAR Review of Systems - Review of Systems Systems not reviewed;Unavailable: Respiratory Distress, Intubated Past Patient History - Infectious Disease Hx of Infectious Diseases: None - Tetanus Immunizations Tetanus Immunization: Unknown - Past Social History Smoking Status: Current Some Days Smoker - CARDIAC Hx Cardiac Disorders: Yes Hx Hypertension: Yes Other/Comment: GA, Heart surgery - PULMONARY Hx Respiratory Disorders: No - NEUROLOGICAL Hx Neurological Disorder: Yes Hx Dementia: Yes Hx Parkinson's Disease: Yes Hx Transient Ischemic Attacks (TIA): Yes - HEENT Hx HEENT Problems: No - RENAL Hx Chronic Kidney Disease: Yes - ENDOCRINE/METABOLIC Hx Endocrine Disorders: Yes Hx Diabetes Mellitus Type 2: Yes - HEMATOLOGICAL/ONCOLOGICAL Hx Blood Disorders: Yes Hx Anemia: Yes Hx Cancer: Yes - INTEGUMENTARY Hx Dermatological Problems: Yes Hx Basil Cell: Yes - MUSCULOSKELETAL/RHEUMATOLOGICAL Hx Musculoskeletal Disorders: Yes Hx Arthritis: Yes Hx Falls: Yes Hx Fractures: Yes Hx Osteoporosis: Yes Hx Unsteady Gait: Yes - GASTROINTESTINAL Hx Gastrointestinal Disorders: Yes Hx Diverticulitis: Yes Hx Gastroesophageal Reflux: Yes Other/Comment: Gastric Cancer - GENITOURINARY/GYNECOLOGICAL Hx Urinary Tract Infection: Yes - PSYCHIATRIC Hx Psychophysiologic Disorder: Yes Hx Anxiety: Yes Hx Depression: Yes Hx Substance Use: No - SURGICAL HISTORY Hx Surgeries: Yes Hx Coronary Stent: Yes Hx Open Heart Surgery: Yes - ANESTHESIA Hx Anesthesia Reactions: No Hx Malignant Hyperthermia: No Meds Allergies/Adverse Reactions: Allergies Allergy/AdvReac Type Severity Reaction Status Date / Time Penicillins Allergy ANAPHYLAXIS Verified 03/26/16 16:56 Sulfa (Sulfonamide Allergy ANAPHYLAXIS Verified 03/26/16 16:56 Antibiotics) - Medications Medications: Current Medications Acetaminophen (Tylenol 325mg Tab) 650 mg PO Q6H PRN PRN Reason: Fever >100.4 F Last Admin: 04/28/18 01:29 Dose: 650 mg Albuterol/Ipratropium (Duoneb 3 Mg/0.5 Mg (3 Ml) Ud) 3 ml IH [id number] PRN PRN Reason: Shortness of Breath Last Admin: 04/28/18 22:16 Dose: 3 ml Aspirin (Aspirin Chewable) 81 mg PO DAILY [facility] Last Admin: 04/28/18 10:44 Dose: 81 mg Carbidopa/Levodopa/Entacapone (Stalevo 150) 1 tab PO TID [facility] Last Admin: 04/28/18 18:30 Dose: 1 tab Clopidogrel Bisulfate (Plavix) 75 mg PO DAILY [facility] Docusate Sodium (Colace) 100 mg PO BID [facility] Last Admin: 04/28/18 18:31 Dose: 100 mg Glyburide (Micronase) 5 mg PO 0800,1700 [facility] Last Admin: 04/28/18 18:30 Dose: 5 mg Heparin Sodium/Sodium Chloride (Heparin 14205 Units/250ml 1/2 Normal Saline) 25,000 units in 250 mls @ 7.588 mls/hr IV .Q24H [facility]; Protocol Last Admin: 04/28/18 13:13 Dose: 12 units/kg/hr, 7.588 mls/hr Insulin Human Regular (Humulin R Med) 0 units SC ACHS [facility]; Protocol Last Admin: 04/28/18 23:07 Dose: Not Given Labetalol HCl (Trandate) 20 mg IV STAT STA Stop: 04/29/18 01:58 Lisinopril (Zestril) 10 mg PO DAILY [facility] Last Admin: 04/28/18 10:44 Dose: 10 mg Metoprolol Tartrate (Lopressor) 25 mg PO BID [facility] Last Admin: 04/28/18 18:35 Dose: 25 mg Morphine Sulfate (Morphine) 0.5 mg IVP Q4 PRN PRN Reason: Pain, moderate (4-7) Last Admin: 04/28/18 01:27 Dose: 0.5 mg Nicotine (Nicoderm Cq) 1 patch TD DAILY [facility] Sitagliptin Phosphate (Januvia) 50 mg PO DAILY [facility] Last Admin: 04/28/18 10:45 Dose: 50 mg Zolpidem Tartrate (Ambien) 5 mg PO HS PRN; Protocol PRN Reason: Insomnia Last Admin: 04/28/18 22:12 Dose: 5 mg Physical Exam - Constitutional Appears: In Acute Distress, Chronically Ill - Head Exam Head Exam: ATRAUMATIC - Eye Exam Eye Exam: PERRL Pupil Exam: NORMAL ACCOMODATION. absent: Fixed, Irregular, Miosis, Mydriatic, Unequal - Respiratory Exam Respiratory Exam: Accessory Muscle Use, Clear to Auscultation Bilateral, Respiratory Distress. absent: Chest Wall Tenderness, Decreased Breath Sounds, Prolonged Expiratory Phase, Rales, Rhonchi, Wheezes, Stridor, NORMAL BREATHING PATTERN - Cardiovascular Exam Cardiovascular Exam: Tachycardia, REGULAR RHYTHM - GI/Abdominal Exam GI & Abdominal Exam: Normal Bowel Sounds, Soft. absent: Tenderness - Extremities Exam Extremities exam: Positive for: normal capillary refill, pedal pulses present - Neurological Exam Additional comments: +corneal, +gag - Expanded Neurological Exam Expanded Coma Scale Eye Opening: None Coma Scale Motor Response: Withdraws to Pain Coma Scale Verbal: None Coma Scale Total: 6 - Skin Skin Exam: Intact Results - Vital Signs Recent Vital Signs: Last Vital Signs Temp 97.8 F 04/29/18 00:12 Pulse 93 H 04/29/18 00:12 Resp 18 04/29/18 00:12 BP 113/53 L 04/29/18 00:12 Pulse Ox 100 04/29/18 00:12 - Labs Result Diagrams: 04/29/18 01:58 04/29/18 01:58 Labs: Laboratory Results - last 24 hr 04/28/18 04/28/18 04/28/18 01:40 01:40 08:30 WBC 27.7 H* D RBC 2.98 L Hgb 9.0 L Hct 27.4 L MCV 91.9 MCH 30.2 MCHC 32.8 RDW 13.2 Plt Count 281 MPV 9.3 Neut % (Auto) 84.7 H Lymph % (Auto) 12.4 L [place] % (Auto) 2.9 Eos % (Auto) 0.0 L Baso % (Auto) 0.0 Lymph # (Auto) 3.4 [place] # (Auto) 0.8 H Eos # (Auto) 0.0 Baso # (Auto) 0.01 Absolute Neuts (auto) 23.39 H Neutrophils % (Manual) 80 H Band Neutrophils % 2 Lymphocytes % (Manual) 13 L Atypical Lymphs % 2 H Monocytes % (Manual) 3 Toxic Granulation 1+ Platelet Evaluation Normal Polychromasia Slight Hypochromasia 1+ Anisocytosis (manual) 1+ APTT Sodium Potassium Chloride Carbon Dioxide Anion Gap BUN Creatinine Est GFR ( Amer) Est GFR (Non-Af Amer) Random Glucose Calcium Total Bilirubin AST ALT Alkaline Phosphatase Troponin I 0.17 H* D Total Protein Albumin Globulin Albumin/Globulin Ratio Procalcitonin 0.62 H 04/28/18 04/28/18 04/28/18 08:30 08:30 13:45 WBC RBC Hgb Hct MCV MCH MCHC RDW Plt Count MPV Neut % (Auto) Lymph % (Auto) [place] % (Auto) Eos % (Auto) Baso % (Auto) Lymph # (Auto) [place] # (Auto) Eos # (Auto) Baso # (Auto) Absolute Neuts (auto) Neutrophils % (Manual) Band Neutrophils % Lymphocytes % (Manual) Atypical Lymphs % Monocytes % (Manual) Toxic Granulation Platelet Evaluation Polychromasia Hypochromasia Anisocytosis (manual) APTT Sodium 140 Potassium 5.1 H Chloride 113 H Carbon Dioxide 20 L Anion Gap 12 BUN 39 H Creatinine 2.1 H Est GFR ( Amer) 27 Est GFR (Non-Af Amer) 22 Random Glucose 333 H* D Calcium 8.0 L Total Bilirubin 0.5 AST 69 H D ALT 17 Alkaline Phosphatase 100 Troponin I 1.52 H* D 4.49 H* D Total Protein 6.1 Albumin 3.0 Globulin 3.2 Albumin/Globulin Ratio 0.9 L Procalcitonin 04/28/18 19:36 WBC RBC Hgb Hct MCV MCH MCHC RDW Plt Count MPV Neut % (Auto) Lymph % (Auto) [place] % (Auto) Eos % (Auto) Baso % (Auto) Lymph # (Auto) [place] # (Auto) Eos # (Auto) Baso # (Auto) Absolute Neuts (auto) Neutrophils % (Manual) Band Neutrophils % Lymphocytes % (Manual) Atypical Lymphs % Monocytes % (Manual) Toxic Granulation Platelet Evaluation Polychromasia Hypochromasia Anisocytosis (manual) APTT 55.5 H Sodium Potassium Chloride Carbon Dioxide Anion Gap BUN Creatinine Est GFR ( Amer) Est GFR (Non-Af Amer) Random Glucose Calcium Total Bilirubin AST ALT Alkaline Phosphatase Troponin I Total Protein Albumin Globulin Albumin/Globulin Ratio Procalcitonin Assessment & Plan - Assessment and Plan (Free Text) Assessment: 88 year old female with a past medical history significant for HTN, HLD, DM2, and Parkinson's disease who originally presented for ankle pain s/p multiple falls. During the admission, patient went into cardiac arrest requiring intubation, ACLS and transfer to the ICU. Plan: Neuro: -GCS: 6 -CT Head without contrast pending -Neurology consulted, all recommendations appreciated -Maintain normothermia -Continue seizure precautions Cardio: -EKG showed new RBBB -Troponins trending upwards; Continue to trend -Continue Heparin gtt -Hold Propofol (Hypotension) -Maintain MAP >65 -Will consider reinitiating Dopamine gtt should patient sustain hypotension -Cardiology consulted, all recommendations appreciated Pulm: -Vent settings: 14/400/50%/5 -Sedation currently held d/t hypotension -Metabolic Acidosis noted on ABG -Given one amp of Bicarb as she was tachypneic on the vent -Continue Duonebs Q4 GI: -NPO Diet -Protonix 40mg IVP daily Renal: -BUN/Creatinine: 45/2.6 -Continue to monitor with daily CMP's -Avoid neprotoxic agents -Renally dose medications when appropriate -Strict I's and O's Endo: -Continue SSI and Accuchecks Q6H -Maintain euglycemia Heme/Onc: -H/H stable at 9.0/27.6 -Continue to monitor with daily CBC's GI Prophylaxis: Protonix DVT Prophylaxis: Heparin gtt Diet: NPO Access: PIV Code Status: Full Code Patient seen and case discussed with attending, Dr. Thapa. Nagi Vazquez PGY2 - Date & Time Date: 04/29/18 Time: 02:02 <Joselyn Thapa - Last Filed: 04/29/18 06:08> Meds - Medications Medications: Current Medications Acetaminophen (Tylenol 325mg Tab) 650 mg PO Q6H PRN PRN Reason: Fever >100.4 F Last Admin: 04/28/18 01:29 Dose: 650 mg Albuterol/Ipratropium (Duoneb 3 Mg/0.5 Mg (3 Ml) Ud) 3 ml IH [id number] PRN PRN Reason: Shortness of Breath Last Admin: 04/28/18 22:16 Dose: 3 ml Aspirin (Aspirin Chewable) 81 mg PO DAILY [facility] Last Admin: 04/28/18 10:44 Dose: 81 mg Carbidopa/Levodopa/Entacapone (Stalevo 150) 1 tab PO TID [facility] Last Admin: 04/28/18 18:30 Dose: 1 tab Clopidogrel Bisulfate (Plavix) 75 mg PO DAILY [facility] Docusate Sodium (Colace) 100 mg PO BID [facility] Last Admin: 04/28/18 18:31 Dose: 100 mg Glyburide (Micronase) 5 mg PO 0800,1700 [facility] Last Admin: 04/28/18 18:30 Dose: 5 mg Heparin Sodium/Sodium Chloride (Heparin 71519 Units/250ml 1/2 Normal Saline) 25,000 units in 250 mls @ 7.588 mls/hr IV .Q24H [facility]; Protocol Last Admin: 04/28/18 13:13 Dose: 12 units/kg/hr, 7.588 mls/hr Sodium Bicarbonate 100 meq/ (Sodium Chloride) 1,100 mls @ 60 mls/hr IV .[id number] [facility] Last Admin: 04/29/18 05:12 Dose: 60 mls/hr Propofol (Diprivan) 1,000 mg in 100 mls @ 1.897 mls/hr IV .Q24H PRN; Protocol PRN Reason: TITRATE PER MD ORDER Insulin Human Regular (Humulin R Med) 0 units SC Q6H [facility]; Protocol Lisinopril (Zestril) 10 mg PO DAILY [facility] Last Admin: 04/28/18 10:44 Dose: 10 mg Metoprolol Tartrate (Lopressor) 25 mg PO BID [facility] Last Admin: 04/28/18 18:35 Dose: 25 mg Morphine Sulfate (Morphine) 0.5 mg IVP Q4 PRN PRN Reason: Pain, moderate (4-7) Last Admin: 04/28/18 01:27 Dose: 0.5 mg Nicotine (Nicoderm Cq) 1 patch TD DAILY [facility] Pantoprazole Sodium (Protonix Inj) 40 mg IVP DAILY [facility] Sitagliptin Phosphate (Januvia) 50 mg PO DAILY [facility] Last Admin: 04/28/18 10:45 Dose: 50 mg Zolpidem Tartrate (Ambien) 5 mg PO HS PRN; Protocol PRN Reason: Insomnia Last Admin: 04/28/18 22:12 Dose: 5 mg Results - Vital Signs Recent Vital Signs: Last Vital Signs Temp 97.8 F 04/29/18 00:12 Pulse 98 H 04/29/18 05:20 Resp 18 04/29/18 00:12 BP 92/43 L 04/29/18 05:20 Pulse Ox 100 04/29/18 05:20 - Labs Result Diagrams: 04/29/18 04:18 04/29/18 04:18 Labs: Laboratory Results - last 24 hr 04/28/18 04/28/18 04/28/18 01:40 08:30 08:30 WBC 27.7 H* D RBC 2.98 L Hgb 9.0 L Hct 27.4 L MCV 91.9 MCH 30.2 MCHC 32.8 RDW 13.2 Plt Count 281 MPV 9.3 Neut % (Auto) 84.7 H Lymph % (Auto) 12.4 L [place] % (Auto) 2.9 Eos % (Auto) 0.0 L Baso % (Auto) 0.0 Lymph # (Auto) 3.4 [place] # (Auto) 0.8 H Eos # (Auto) 0.0 Baso # (Auto) 0.01 Absolute Neuts (auto) 23.39 H Neutrophils % (Manual) 80 H Band Neutrophils % 2 Lymphocytes % (Manual) 13 L Atypical Lymphs % 2 H Monocytes % (Manual) 3 Toxic Granulation 1+ Platelet Evaluation Normal Polychromasia Slight Hypochromasia 1+ Anisocytosis (manual) 1+ PT INR APTT D-Dimer, Quantitative pCO2 pO2 HCO3 ABG pH ABG Total CO2 ABG O2 Saturation ABG Base Excess ABG Potassium Glucose Lactate Mechanical Rate FiO2 Tidal Volume PEEP Crit Value Called To Crit Value Called By Blood Gas Notified Time Sodium 140 Potassium 5.1 H Chloride 113 H Carbon Dioxide 20 L Anion Gap 12 BUN 39 H Creatinine 2.1 H Est GFR ( Amer) 27 Est GFR (Non-Af Amer) 22 Random Glucose 333 H* D Calcium 8.0 L Phosphorus Magnesium Total Bilirubin 0.5 AST 69 H D ALT 17 Alkaline Phosphatase 100 Lactate Dehydrogenase Total Creatine Kinase CK-MB (CK-2) CK-MB (CK-2) % Troponin I NT-Pro-B Natriuret Pep Total Protein 6.1 Albumin 3.0 Globulin 3.2 Albumin/Globulin Ratio 0.9 L Procalcitonin 0.62 H Arterial Blood Potassium Urine Color Urine Appearance Urine pH Ur Specific [place] Urine Protein Urine Glucose (UA) Urine Ketones Urine Blood Urine Nitrate Urine Bilirubin Urine Urobilinogen Ur Leukocyte Esterase Urine RBC Urine WBC Ur Epithelial Cells Urine Bacteria 04/28/18 04/28/18 04/28/18 08:30 13:45 19:36 WBC RBC Hgb Hct MCV MCH MCHC RDW Plt Count MPV Neut % (Auto) Lymph % (Auto) [place] % (Auto) Eos % (Auto) Baso % (Auto) Lymph # (Auto) [place] # (Auto) Eos # (Auto) Baso # (Auto) Absolute Neuts (auto) Neutrophils % (Manual) Band Neutrophils % Lymphocytes % (Manual) Atypical Lymphs % Monocytes % (Manual) Toxic Granulation Platelet Evaluation Polychromasia Hypochromasia Anisocytosis (manual) PT INR APTT 55.5 H D-Dimer, Quantitative pCO2 pO2 HCO3 ABG pH ABG Total CO2 ABG O2 Saturation ABG Base Excess ABG Potassium Glucose Lactate Mechanical Rate FiO2 Tidal Volume PEEP Crit Value Called To Crit Value Called By Blood Gas Notified Time Sodium Potassium Chloride Carbon Dioxide Anion Gap BUN Creatinine Est GFR ( Amer) Est GFR (Non-Af Amer) Random Glucose Calcium Phosphorus Magnesium Total Bilirubin AST ALT Alkaline Phosphatase Lactate Dehydrogenase Total Creatine Kinase CK-MB (CK-2) CK-MB (CK-2) % Troponin I 1.52 H* D 4.49 H* D NT-Pro-B Natriuret Pep Total Protein Albumin Globulin Albumin/Globulin Ratio Procalcitonin Arterial Blood Potassium Urine Color Urine Appearance Urine pH Ur Specific [place] Urine Protein Urine Glucose (UA) Urine Ketones Urine Blood Urine Nitrate Urine Bilirubin Urine Urobilinogen Ur Leukocyte Esterase Urine RBC Urine WBC Ur Epithelial Cells Urine Bacteria 04/29/18 04/29/18 04/29/18 01:45 01:58 01:58 WBC RBC Hgb Hct MCV MCH MCHC RDW Plt Count MPV Neut % (Auto) Lymph % (Auto) [place] % (Auto) Eos % (Auto) Baso % (Auto) Lymph # (Auto) [place] # (Auto) Eos # (Auto) Baso # (Auto) Absolute Neuts (auto) Neutrophils % (Manual) Band Neutrophils % Lymphocytes % (Manual) Atypical Lymphs % Monocytes % (Manual) Toxic Granulation Platelet Evaluation Polychromasia Hypochromasia Anisocytosis (manual) PT 15.8 H INR 1.42 APTT 60.4 H D-Dimer, Quantitative > 5250 H pCO2 75 H* pO2 36.0 L* HCO3 TEST NOT PERFORMED ABG pH < 6.80 L* ABG Total CO2 TEST NOT PERFORMED ABG O2 Saturation 75.3 L ABG Base Excess TEST NOT PERFORMED ABG Potassium 4.9 Glucose 265 H Lactate 10.7 H* Mechanical Rate FiO2 100.0 Tidal Volume PEEP Crit Value Called To Jarrett lawrence rn 2rno Crit Value Called By [facility] Blood Gas Notified Time 207 Sodium 140.0 138 Potassium 5.2 H Chloride 107.0 110 H Carbon Dioxide 13 L Anion Gap 20 BUN 45 H Creatinine 2.6 H Est GFR ( Amer) 21 Est GFR (Non-Af Amer) 17 Random Glucose 266 H Calcium 8.2 L Phosphorus 6.7 H Magnesium 2.7 H Total Bilirubin 0.5 AST 234 H D ALT 19 Alkaline Phosphatase 120 Lactate Dehydrogenase 2404 H Total Creatine Kinase 412 H CK-MB (CK-2) 19.2 H CK-MB (CK-2) % 4.7 H Troponin I 10.50 H* D NT-Pro-B Natriuret Pep 14052 H Total Protein 6.0 Albumin 2.9 L Globulin 3.1 Albumin/Globulin Ratio 0.9 L Procalcitonin Arterial Blood Potassium 4.9 Urine Color Urine Appearance Urine pH Ur Specific [place] Urine Protein Urine Glucose (UA) Urine Ketones Urine Blood Urine Nitrate Urine Bilirubin Urine Urobilinogen Ur Leukocyte Esterase Urine RBC Urine WBC Ur Epithelial Cells Urine Bacteria 04/29/18 04/29/18 04/29/18 01:58 03:05 04:18 WBC 33.7 H* D 28.3 H* RBC 3.16 L 3.00 L Hgb 9.5 L 9.0 L Hct 30.2 L 27.6 L MCV 95.6 D 92.0 D MCH 30.1 30.0 MCHC 31.5 32.6 RDW 13.3 13.4 Plt Count 393 337 MPV 10.0 9.7 Neut % (Auto) 64.1 79.3 H Lymph % (Auto) 32.1 17.5 L [place] % (Auto) 3.5 3.0 Eos % (Auto) 0.1 L 0.0 L Baso % (Auto) 0.2 0.2 Lymph # (Auto) 10.8 H 4.9 H [place] # (Auto) 1.2 H 0.9 H Eos # (Auto) 0.0 0.0 Baso # (Auto) 0.06 0.05 Absolute Neuts (auto) 21.57 H 22.41 H Neutrophils % (Manual) Band Neutrophils % Lymphocytes % (Manual) Atypical Lymphs % Monocytes % (Manual) Toxic Granulation Platelet Evaluation Polychromasia Hypochromasia Anisocytosis (manual) PT INR APTT D-Dimer, Quantitative pCO2 23 L pO2 416.0 H HCO3 8.2 L* ABG pH 7.16 L* ABG Total CO2 8.9 L ABG O2 Saturation 99.4 H ABG Base Excess -18.7 L ABG Potassium 4.5 Glucose 252 H Lactate 7.2 H* Mechanical Rate 14 FiO2 100.0 Tidal Volume 400 PEEP 5 Crit Value Called To Dr thapa Crit Value Called By Clive Blood Gas Notified Time 317 Sodium 139.0 Potassium Chloride 111.0 H Carbon Dioxide Anion Gap BUN Creatinine Est GFR ( Amer) Est GFR (Non-Af Amer) Random Glucose Calcium Phosphorus Magnesium Total Bilirubin AST ALT Alkaline Phosphatase Lactate Dehydrogenase Total Creatine Kinase CK-MB (CK-2) CK-MB (CK-2) % Troponin I NT-Pro-B Natriuret Pep Total Protein Albumin Globulin Albumin/Globulin Ratio Procalcitonin Arterial Blood Potassium 4.5 Urine Color Urine Appearance Urine pH Ur Specific [place] Urine Protein Urine Glucose (UA) Urine Ketones Urine Blood Urine Nitrate Urine Bilirubin Urine Urobilinogen Ur Leukocyte Esterase Urine RBC Urine WBC Ur Epithelial Cells Urine Bacteria 04/29/18 04/29/18 04:18 05:15 WBC RBC Hgb Hct MCV MCH MCHC RDW Plt Count MPV Neut % (Auto) Lymph % (Auto) [place] % (Auto) Eos % (Auto) Baso % (Auto) Lymph # (Auto) [place] # (Auto) Eos # (Auto) Baso # (Auto) Absolute Neuts (auto) Neutrophils % (Manual) Band Neutrophils % Lymphocytes % (Manual) Atypical Lymphs % Monocytes % (Manual) Toxic Granulation Platelet Evaluation Polychromasia Hypochromasia Anisocytosis (manual) PT INR APTT D-Dimer, Quantitative pCO2 pO2 HCO3 ABG pH ABG Total CO2 ABG O2 Saturation ABG Base Excess ABG Potassium Glucose Lactate Mechanical Rate FiO2 Tidal Volume PEEP Crit Value Called To Crit Value Called By Blood Gas Notified Time Sodium 137 Potassium 4.8 Chloride 111 H Carbon Dioxide 13 L Anion Gap 18 BUN 48 H Creatinine 2.9 H Est GFR ( Amer) 19 Est GFR (Non-Af Amer) 15 Random Glucose 284 H Calcium 8.0 L Phosphorus Magnesium Total Bilirubin 0.6 AST 516 H D ALT 36 Alkaline Phosphatase 123 Lactate Dehydrogenase Total Creatine Kinase CK-MB (CK-2) CK-MB (CK-2) % Troponin I NT-Pro-B Natriuret Pep Total Protein 6.1 Albumin 2.9 L Globulin 3.3 Albumin/Globulin Ratio 0.9 L Procalcitonin Arterial Blood Potassium Urine Color Yellow Urine Appearance Sl cloudy Urine pH 5.5 Ur Specific [place] 1.025 Urine Protein Trace H Urine Glucose (UA) Negative Urine Ketones Negative Urine Blood Negative Urine Nitrate Negative Urine Bilirubin Negative Urine Urobilinogen 0.2 Ur Leukocyte Esterase Negative Urine RBC 0 - 2 Urine WBC 0 - 2 Ur Epithelial Cells 0 - 2 Urine Bacteria Mod Attending/Attestation - Attestation I have personally seen and examined this patient.: Yes I have fully participated in the care of the patient.: Yes I have reviewed all pertinent clinical information: Yes Notes (Text): 04/29/18 05:58 Responded to RAPID RESPONSE announcement which was called for restlessness and desaturation -pulse ox 87% on 3L/min. When I arrived in the room, patient was restless. BP was high 184 systolic. Patient was found to have heart rate going down to bradycardia in the 30's , no pulse was found, CODE BLUE was called . Intubated with size 7.5 ETT. Position confirmed with auscultation and CO2 detector. ACLS protocol followed. Resuscitated, transferred to CCU. Medical record was reviewed. Agree with resident physician's note. CCT spent greater than 30 minutes.
[2018-04-29 02:07] LABS: ARTERIAL BLOOD GAS O2 SAT 75.3 % (95-98); ARTERIAL BLOOD GAS PCO2 75 mm/Hg (35-45); ARTERIAL BLOOD GAS PH < 6.80 (7.35-7.45)
[2018-04-29 02:20] LABS: BASO # 0.06 K/mm3 (0.0-2.0); BASO % 0.2 % (0.0-3.0); EOS % 0.1 % (1.5-5.0); HEMOGLOBIN 9.5 g/dL (12.0-16.0); LYMPH # 10.8 (1.2-3.4); LYMPH % 32.1 % (22.0-35.0); MEAN CORPUSCULAR HEMOGLOBIN 30.1 pg (25.0-35.0); MEAN CORPUSCULAR HGB CONC 31.5 g/dl (31.0-37.0); MONO # 1.2 (0.1-0.6); MONO % 3.5 % (1.0-6.0); RBC 3.16 10^6/uL (3.5-6.1); RED CELL DISTRIBUTION WIDTH 13.3 % (11.5-14.5)
[2018-04-29 02:22] LABS: MEAN CELL VOLUME 95.6 fl (80.0-105.0); WHITE BLOOD COUNT 33.7 10^3/uL (4.5-11.0)
[2018-04-29 02:25] LABS: ALB/GLOB RATIO 0.9 (1.1-1.8); ALBUMIN 2.9 g/dL (3.0-4.8); CALCIUM 8.2 mg/dL (8.4-10.5); INR 1.42; PARTIAL THROMBOPLASTIN TIME 60.4 Seconds (26.9-38.3); PROTHROMBIN TIME 15.8 SECONDS (9.4-12.5)
[2018-04-29 02:39] LABS: CK MB% 4.7 % (2.5-3.0); CK-MB 19.2 ng/mL (0.0-3.6); TROPONIN I 10.5 ng/mL
[2018-04-29 02:43] LABS: D DIMER > 5250 ng/mlDDU (0-243)
[2018-04-29 03:18] LABS: ARTERIAL BLOOD GAS HCO3 8.2 mmol/L (21-28); ARTERIAL BLOOD GAS O2 SAT 99.4 % (95-98); ARTERIAL BLOOD GAS PCO2 23 mm/Hg (35-45); ARTERIAL BLOOD GAS PH 7.16 (7.35-7.45); ARTERIAL BLOOD GAS TCO2 8.9 mmol.L (22-28)
[2018-04-29] MEDS ORDERED: Sodium Bicarbonate (8.4%) 50 Meq Syringe IVP ONE ×2 (04:09→04:27)
[2018-04-29 04:29] LABS: BASO # 0.05 K/mm3 (0.0-2.0); BASO % 0.2 % (0.0-3.0); LYMPH # 4.9 (1.2-3.4); LYMPH % 17.5 % (22.0-35.0); MEAN CORPUSCULAR HGB CONC 32.6 g/dl (31.0-37.0); MEAN PLATELET VOLUME 9.7 fl (7.0-11.0); MONO # 0.9 (0.1-0.6); RED CELL DISTRIBUTION WIDTH 13.4 % (11.5-14.5)
[2018-04-29 04:38] LABS: WHITE BLOOD COUNT 28.3 10^3/uL (4.5-11.0)
[2018-04-29 05:09] LABS: ALB/GLOB RATIO 0.9 (1.1-1.8); ALBUMIN 2.9 g/dL (3.0-4.8)
[2018-04-29] MEDS ORDERED: Insulin Reg-MEDIUM-Coverage SC SCH (05:15)
[2018-04-29 05:39] LABS: PH,URINE 5.5 (4.7-8.0); URINE BILIRUBIN NEGATIVE (NEGATIVE); URINE BLOOD NEGATIVE (NEGATIVE); URINE GLUCOSE (UA) NEGATIVE (NEGATIVE); URINE LEUKOCYTE ESTERASE NEGATIVE Leu/uL (NEGATIVE); URINE PROTEIN TRACE mg/dL (<30 mg/dL); URINE UROBILINOGEN 0.2 E.U./dL (<1 E.U./dL)
[2018-04-29 05:47] LABS: URINE APPEARANCE SL CLOUDY (CLEAR); URINE COLOR YELLOW (YELLOW)
[2018-04-29 05:50] LABS: URINE RBC 0 - 2 /hpf (0-2); URINE WBC 0 - 2 /hpf (0-6)
[2018-04-29 05:51] LABS: URINE BACTERIA MOD /hpf; URINE EPITHELIAL CELLS 0 - 2 /hpf (0-5)
[2018-04-29] MEDS ORDERED: Cefepime IV 2 gm in NS 2 GM/100 ML BAG IVPB STA (06:21)
[2018-04-29] MEDS ORDERED: Vancomycin 1gm in NS 250ml 1 GM/250 ML BAG IVPB STA ×2 (06:21→09:42)
--- NOTE | 2018-04-29 06:44 | PCM.RRT ---
<aNgi Vazquez - Last Filed: 04/29/18 06:44> INSURANCE RISK MANAGER Nurse Assessment - Situation Date: 04/29/18 Time INSURANCE RISK MANAGER was called: 01:17 INSURANCE RISK MANAGER Responder Arrival Time: : INSURANCE RISK MANAGER Location:: [address] [place] [address] Room Number: [id number] INSURANCE RISK MANAGER Reason for Call: Tachycardia, Respiratory Distress, O2 Saturation below 90% INSURANCE RISK MANAGER Called By: RN - IV IV Inserted during INSURANCE RISK MANAGER?: Yes IV Fluids Initiated During INSURANCE RISK MANAGER?: 0.9 NS bolus. Atropine - Respiratory Oxygen Delivery Method: Non Rebreather @% Received Nebulizer Treatments:: Yes Was the Patient Ventilated with Bag/Mask 100% O2?: Yes Secretions Suctioned?: No Was the Patient Intubated?: Yes Was the Patient Placed on a Ventilator?: Yes - Medication Medications Administered During INSURANCE RISK MANAGER: Duoneb. Lasix 40 mg IV. Morphine 4 mg IV. Atropine 0.5 MG - Diagnostic Test Ordered EKG: Yes - Stat Labs Ordered INSURANCE RISK MANAGER Stat Labs Ordered: ABG CPR started during INSURANCE RISK MANAGER?: Yes - Vital Signs Vital Sign: Rapid Response Vital Sign Blood Pressure 146/71 Pulse Rate 137 - Finger Stick Blood Glucose Finger Stick Blood Glucose: 219 - Nadeen Coma Scale Coma Scale Eye Opening: No response Coma Scale Motor: Withdraw response to pain Coma Scale Verbal: No response - Time INSURANCE RISK MANAGER Ended Time INSURANCE RISK MANAGER Ended: 01:25 - Vital Signs at end of INSURANCE RISK MANAGER Vital Signs at end of INSURANCE RISK MANAGER: Rapid Response End Vital Sign Blood Pressure 202/117 Pulse Rate 68 - Recommendations 5) INSURANCE RISK MANAGER Level of Care Recommendations: Transfer to ICU Notifications: Attending Physician, Consultations, Family or Designated Caregiv er I.Reason for INSURANCE RISK MANAGER - A) Acute Change in Patient: Subjective: An INSURANCE RISK MANAGER was called on the patient while on telemetry monitoring for unre sponsiveness, SOB, agonal breathing and hypoxia documented as low as 87%. During the INSURANCE RISK MANAGER, the patient was noted to have bradycardia with a HR in the 30's, for which one dose of Atropine was given. Patient then became pulseless, in PEA, and a Code Blue was called. Several rounds of ACLS were performed with three doses of epinephrine given. Patient was also started on a Dopamine gtt as she was hypotensive but this quickly resolved, with systolic BP >200mmHg, and this was discontinued. Patient was intubated during the Code Blue for airway protection. She was then transferred to the ICU for further management. - Neurological Status (Select all that apply): Disoriented, Confused - Respiratory Oxygen Delivery Method: Non Rebreather @% - Constitutional Appears: Confused, Chronically Ill - Head Head Exam: ATRAUMATIC - Eyes Eye Exam: EOMI, Normal appearance, PERRL - Respiratory Exam Respiratory Exam: Accessory Muscle Use, Clear to Ausculation Bilateral, Respira tory Distress. absent: NORMAL BREATHING PATTERN - Cardiovascular Exam Cardiovascular Exam: REGULAR RHYTHM - GI/Abdominal Exam GI & Abdominal Exam: Soft, Normal Bowel Sounds. absent: Tenderness - Neurological Exam Neurological Exam: absent: Alert, Awake, Oriented x3 - Extremities Exam Extremities Exam: Normal Inspection Plan - Assessment of Findings&Treatment Plan -CBC, CMP, Mag/Phos, Troponinsx3, ABG -Intubation on MV -Chest X-Ray -CT Head -Neurology Consultation (R/O seizures) -Bicarb Drip <Joselyn Thapa - Last Filed: 05/02/18 21:32> INSURANCE RISK MANAGER Nurse Assessment - Vital Signs Vital Sign: Rapid Response Vital Sign Blood Pressure 146/71 Pulse Rate 137 - Vital Signs at end of INSURANCE RISK MANAGER Vital Signs at end of INSURANCE RISK MANAGER: Rapid Response End Vital Sign Blood Pressure 202/117 Pulse Rate 68 Attending/Attestation - Attestation I have personally seen and examined this patient.: Yes I have fully participated in the care of the patient.: Yes I have reviewed all pertinent clinical information, including history, physical exam and plan: Yes Notes (Text): 05/02/18 21:31 Agree with note. CCT spent:30 Minutes.
[2018-04-29 07:13] LABS: VENOUS BLOOD GAS BASE EXCESS -5.6 mmol/L (0.0-2.0); VENOUS BLOOD GAS PO2 192 mm/Hg (30-55); VENOUS BLOOD PH 7.39 (7.32-7.43)
--- NOTE | 2018-04-29 08:00 | CT ---
Date of service: 04/29/2018 PROCEDURE: CT HEAD WITHOUT CONTRAST. HISTORY: AMS COMPARISON: Noncontrast head CT 04/26/2018. TECHNIQUE: Axial computed tomography images were obtained through the head/brain without intravenous contrast. Radiation dose: Total exam DLP = 765.73 mGy-cm. This CT exam was performed using one or more of the following dose reduction techniques: Automated exposure control, adjustment of the mA and/or kV according to patient size, and/or use of iterative reconstruction technique. FINDINGS: HEMORRHAGE: No intracranial hemorrhage. BRAIN: Stable diffuse cerebral atrophy chronic microangiopathy are identified as well as chronic lobar infarctions at the right frontal and temporal parietal distributions as previously discussed. There is no interval mass effect identified and no suspicious extra-axial collection identified. Midline brain anatomy remains unremarkable. VENTRICLES: Unremarkable. No hydrocephalus. CALVARIUM: Unremarkable. PARANASAL SINUSES: Multifocal ethmoid sinusitis is identified with interval left nasogastric tube again identified at the left nares, middle terminate region and left nasopharynx. MASTOID AIR CELLS: Unremarkable as visualized. No inflammatory changes. OTHER FINDINGS: None. IMPRESSION: No significant interval change in diffuse cerebral atrophy and chronic lobar infarctions as discussed above at the right cerebral hemisphere. No definite acute intracranial findings by standard MR criteria. Follow-up MRI or CT is available as clinically warranted. Concordant preliminary report from [facility], 04/29/2018 2:51 a.m..
--- NOTE | 2018-04-29 08:28 | CON ---
DATE: 04/29/2018 PULMONARY CONSULTATION REFERRING PHYSICIAN: Dr. Devi REASON FOR PULMONARY CONSULTATION: Ventilator management. History is obtained via extensive discussion with the family. I have also discussed the case with the nurse at length. I have also reviewed the chart at length. The patient is an 88-year-old female, with past medical history significant for chronic obstructive pulmonary disease, positive extensive smoking history - still smokes, hypertension, hyperlipidemia, diabetes mellitus, Parkinson's disease, who presented to [facility] - originally on 04/26/2018 - after several falls at home. In particular, the patient did complain of pain in her left ankle. Subsequent evaluation revealed a fracture of the distal left fibula. The patient was thus admitted for additional evaluation. Again, I did discuss the case with the family and nurse at length. I have also discussed the case with Dr. Thapa (house physician) at length. Apparently, earlier this morning, the patient was found in respiratory distress with oxygen desaturation. The patient then lost her blood pressure and pulse, and a code blue was called. The patient was intubated and successfully resuscitated. She was then brought to the ICU for additional evaluation. Again, I did discuss the case with the family at length. The patient did not have shortness of breath at rest at home. She does have chronic dyspnea on exertion. She also has chronic minimal cough with occasional sputum production. There is no history of chest pain, coughing up of blood, or chest pain - brought on with deep respirations. The patient did have low-grade fevers (100.2) two days ago. The temperatures have since resolved. No history of chills or infectious exposure. No history of night sweats, weight loss or appetite change prior to the above events. No history of calf pains. No history of recent travel. REVIEW OF SYSTEMS: No history of nausea, vomiting or diarrhea. No acute urinary symptoms. Rest of the review of systems is negative. ALLERGIES: TO PENICILLIN AND SULFA. SOCIAL HISTORY: Positive for extensive tobacco usage - still smokes, no alcohol. FAMILY HISTORY: No inheritable diseases. HOME MEDICATIONS: Include Januvia, metoprolol, Zestril, glipizide, carbidopa and aspirin. PHYSICAL EXAMINATION: GENERAL: The patient is currently lethargic and on the ventilator. VITALS: Temperature is 97.8, pulse is 98, respiratory rate 22/14, blood pressure 103/56. HEENT: Normocephalic, atraumatic. No JVD. CARDIOVASCULAR: Systolic ejection murmur at the lower left sternal border. Questionable S3 gallop. LUNGS: Minimal crackles at the bases. Very minimal rhonchi. No wheezing. EXTREMITIES: No clubbing, cyanosis or edema. GASTROINTESTINAL: Abdomen is soft, nondistended. Bowel sounds are positive. SKIN: No acute rash. NEUROLOGIC: Exam limited at the present time. PERTINENT LABORATORY DATA: Chest x-ray was done and reviewed. There is mild pulmonary vascular congestion noted. The chest x-ray actually appears improved compared to the previous films. Repeat arterial blood gas is pending. CBC: White count 28.3K, hemoglobin 9.0, hematocrit 27.6, platelets of 337,000. Complete metabolic profile: Chloride 111, carbon dioxide 13, BUN 48, creatinine 2.9, glucose 284, calcium 8, AST 516. Rest of the metabolic profile is within normal limits. Peak troponin 10.5. B-type natriuretic peptide 53,800. IMPRESSION: 1. Respiratory failure. 2. Status post code blue. 3. Acute myocardial infarction. 4. Acute congestive heart failure. 5. Chronic obstructive pulmonary disease. 6. Anemia. PLAN: Again, I did discuss the case with the ICU nurse at length. I have also discussed the case with the family at length. The patient is currently lethargic and on the ventilator. The patient initially presented to [facility] - on 04/26/2018 - after falling at home. As above, she did sustain a fracture to the left distal fibula. She was thus admitted for additional evaluation. Again, I did discuss the case with Dr. Thapa (house physician). Apparently, earlier this morning, the patient had respiratory distress with oxygen desaturation. She then lost her blood pressure and pulse, and a code blue was called. She was successfully intubated and resuscitated and transferred to the medical ICU. I did review the chest x-ray as above. This chest x-ray shows mild pulmonary vascular congestion. The chest x-ray is actually improved from yesterday. In addition, as above, I will order a stat arterial blood gas to be done. I will be called with those results. I would continue with the treatment for acute myocardial infarction and congestive heart failure as per Cardiology. Input by Dr. Page is noted. The patient was given multiple doses of intravenous Lasix. The patient is also on Plavix. On physical exam, there is certainly no significant bronchospasm noted. I will continue with the current nebulizer treatments - p.r.n. basis. The patient is critically ill at this point in time, with very guarded/poor prognosis. I will discuss the above with the entire ICU team in the next few moments. I will also discuss the above with Dr. Devi later this morning. Thank you very much for this pulmonary consultation. Burton Aguilar MD MTDD
--- NOTE | 2018-04-29 09:12 | PN ---
DATE: 04/29/2018 SUBJECTIVE: The events above noted. Currently, the patient is on a ventilator. PHYSICAL EXAMINATION: VITAL SIGNS: Blood pressure is 104/50, heart rates in the 90s, normal sinus rhythm. NECK: Negative JVD. LUNGS: No rales noted. HEART: S1, S2. EXTREMITIES: Without edema. NEUROLOGIC: The patient is sedated. LABORATORY DATA: BUN and creatinine of 48 and 2.9. Troponins peaked up to 10, hemoglobin is 9 and white count is up to 28,000. IMPRESSION: 1. Cardiopulmonary arrest. 2. Respiratory failure. 3. Nsx-SD-pggezovky myocardial infarction. 4. Coronary artery disease. 5. Status post ankle fracture. 6. Renal failure. PLAN: Given these findings, we will continue the patient on IV heparin. Aspirin and beta-blockers are ordered. The patient will be evaluated by neuro. CT scan of the brain is pending. I have discussed the multiorgan issues with the patient's family in detail. Eddi Page MD
--- NOTE | 2018-04-29 09:56 | CP.CCUPN ---
<Sandee Huang - Last Filed: 04/29/18 12:19> CCU Subjective - Physician Review Subjective (Free Text): Sandee Huang, PGY-1, ICU Progress Note for Dr. Connell Patient seen and evaluated at bedside. 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 Code blue was called and multiple rounds of CPR was performed with administration of epinephrinex1 with a rhythm of PEA. Patient was subsequently intubated and sedated. Patient was started on dopamine GTT and stopped subsequently due to hypertension with SBP>200. Patient had tonic-clonic jerking for 1-2 minutes status post ACLS. 12-point ROS was unattainable due to patient's intubation status. CCU Objective - Vital Signs / Intake & Output Vital Signs (Last 4 hours): Vital Signs Temp Pulse Resp BP Pulse Ox 04/29/18 07:56 96 H 04/29/18 07:50 96 H 99 04/29/18 07:40 97 H 99 04/29/18 07:30 97 H 103/41 L 99 04/29/18 07:20 98 H 100 04/29/18 07:14 30 H 94 L 04/29/18 07:10 100 H 84 L 04/29/18 07:00 98 H 92/39 L 99 04/29/18 06:50 98 H 99 04/29/18 06:40 98 H 100 04/29/18 06:30 99 H 103/41 L 100 04/29/18 06:20 99 H 99 04/29/18 06:10 99 H 100 04/29/18 06:00 101.3 F H 100 H 98/43 L 100 Intake and Output (Last 8hrs): Intake & Output 04/28/18 04/29/18 04/29/18 22:59 06:59 14:59 Intake Total 1510 510 Output Total 300 600 Balance 1210 -90 Intake: IV 270 510 Left Antecubital 270 Left Forearm 500 Oral 1240 0 Output: Urine 300 600 Urethral (Masters) 300 Urine, Voided 300 300 Stool 0 Other: # Voids Urine, Voided 2 2 - Physical Exam Head: Positive for: Atraumatic, Normocephalic Pupils: Positive for: PERRL Mouth: Positive for: Moist Mucous Membranes Neck: Positive for: Normal Range of Motion Respiratory/Chest: Positive for: Good Air Exchange. Negative for: Respiratory Distress, Accessory Muscle Use Cardiovascular: Positive for: Regular Rate and Rhythm, Normal S1, S2. Negative for: Murmurs Abdomen: Negative for: Tenderness, Distention, Peritoneal Signs Upper Extremity: Positive for: Normal ROM, NORMAL PULSES, Other (multiple small ecchymotic areas consistent with multiple falls). Negative for: Cyanosis, Edema, Tenderness, Swelling Lower Extremity: Positive for: Edema (left ankle), NORMAL PULSES, Tenderness (left ankle), Swelling (left ankle), Neurovascularly Intact, Capillary Refill < 2 s. Negative for: CALF TENDERNESS, Normal ROM (decreased ROM d/t swelling at left nakle normal ROm in all other lowere extremity joints) Neurological: Positive for: GCS=15, CN II-XII Intact, Speech Normal Skin: Positive for: Warm, Dry, Other (ecchymotic swollen left ankle with abrasion over left ledial hallux, scattered ecchymosis over lower legs bilaterally) Psychiatric: Positive for: Alert, Oriented x 3, Normal Concentration. Negative for: Normal Insight - Medications Active Medications: Active Medications Generic Name Dose Route Start Last Admin Trade Name Freq PRN Reason Stop Dose Admin Acetaminophen 650 mg 04/28/18 00:59 04/28/18 01:29 Tylenol 325mg Tab PO 650 mg Q6H PRN Administration Fever >100.4 F Albuterol/Ipratropium 3 ml 04/28/18 00:32 04/28/18 22:16 Duoneb 3 Mg/0.5 Mg (3 Ml) Ud IH 3 ml [id number] PRN Administration Shortness of Breath Aspirin 81 mg 04/27/18 10:00 04/28/18 10:44 Aspirin Chewable PO 81 mg DAILY SETVEN Administration Carbidopa/Levodopa/Entacapone 1 tab 04/27/18 10:00 04/28/18 18:30 Stalevo 150 PO 1 tab TID STEVEN Administration Clopidogrel Bisulfate 75 mg 04/29/18 10:00 Plavix PO DAILY STEVEN Docusate Sodium 100 mg 04/27/18 10:00 04/28/18 18:31 Colace PO 100 mg BID STEVEN Administration Glyburide 5 mg 04/28/18 17:00 04/29/18 08:22 Micronase PO 5 mg 0800,1700 STEVEN Administration Heparin Sodium/Sodium Chloride 25,000 units in 250 mls @ 7.588 mls/hr 04/28/18 10:00 04/28/18 13:13 Heparin 96727 Units/250ml 1/2 Normal Saline IV 12 units/kg/hr .Q24H STEVEN 7.588 mls/hr Administration Protocol 12 UNITS/KG/HR Sodium Bicarbonate 100 meq/ 1,100 mls @ 60 mls/hr 04/29/18 04:15 04/29/18 05:12 Sodium Chloride IV 60 mls/hr .[id number] STEVEN Administration Propofol 1,000 mg in 100 mls @ 1.897 mls/hr 04/29/18 02:00 04/29/18 03:30 Diprivan IV 0 mcg/kg/min .Q24H PRN 0 mls/hr TITRATE PER MD ORDER Titration Protocol 5 MCG/KG/MIN Aztreonam 100 mls @ 100 mls/hr 04/29/18 09:45 Azactam 1 Gm IVPB 05/06/18 09:46 Q8 STEVEN Protocol Vancomycin HCl 1 gm in 250 mls @ 167 mls/hr 04/29/18 09:42 Vancomycin 1gm IVPB 04/29/18 11:11 STAT STA Protocol Insulin Human Regular 0 units 04/29/18 05:15 04/29/18 06:54 Humulin R Med SC 2 units Q6H STEVEN Administration Protocol Lisinopril 10 mg 04/27/18 10:00 04/28/18 10:44 Zestril PO 10 mg DAILY STEVEN Administration Metoprolol Tartrate 25 mg 04/28/18 08:32 04/28/18 18:35 Lopressor PO 25 mg BID STEVEN Administration Morphine Sulfate 0.5 mg 04/27/18 08:38 04/28/18 01:27 Morphine IVP 0.5 mg Q4 PRN Administration Pain, moderate (4-7) Nicotine 1 patch 04/29/18 10:00 Nicoderm Cq TD DAILY STEVEN Pantoprazole Sodium 40 mg 04/29/18 10:00 Protonix Inj IVP DAILY STEVEN Sitagliptin Phosphate 50 mg 04/28/18 10:00 04/28/18 10:45 Januvia PO 50 mg DAILY STEVEN Administration Zolpidem Tartrate 5 mg 04/28/18 20:25 04/28/18 22:12 Ambien PO 5 mg HS PRN Administration Insomnia Protocol - Patient Studies Lab Studies: Microbiology Studies 04/26/18 18:00 Urine Culture - Final Urine Random Escherichia Coli 04/26/18 18:00 Blood Culture - Preliminary Blood NO GROWTH AFTER 48 HOURS 04/26/18 17:30 Blood Culture - Preliminary Blood NO GROWTH AFTER 48 HOURS Lab Studies 04/29/18 04/29/18 04/29/18 Range/Units 06:45 05:15 04:18 WBC (4.5-11.0) 10^3/uL RBC (3.5-6.1) 10^6/uL Hgb (12.0-16.0) g/dL Hct (36.0-48.0) % MCV (80.0-105.0) fl MCH (25.0-35.0) pg MCHC (31.0-37.0) g/dl RDW (11.5-14.5) % Plt Count (120.0-450.0) 10^3/uL MPV (7.0-11.0) fl Neut % (Auto) (50.0-68.0) % Lymph % (Auto) (22.0-35.0) % [place] % (Auto) (1.0-6.0) % Eos % (Auto) (1.5-5.0) % Baso % (Auto) (0.0-3.0) % Lymph # (Auto) (1.2-3.4) [place] # (Auto) (0.1-0.6) Eos # (Auto) (0.0-0.7) Baso # (Auto) (0.0-2.0) K/mm3 Absolute Neuts (auto) (1.4-6.5) PT (9.4-12.5) SECONDS INR APTT (26.9-38.3) Seconds D-Dimer, Quantitative (0-243) ng/mlDDU pCO2 (35-45) mm/Hg pO2 192 H (80-100) mm/Hg HCO3 ABG pH (7.35-7.45) ABG Total CO2 ABG O2 Saturation (95-98) % ABG Base Excess ABG Potassium (3.6-5.2) mmol/L VBG pH 7.39 (7.32-7.43) VBG pCO2 30.0 L (40-60) VBG HCO3 18.2 L (21-28) mmol/l VBG Total CO2 19.1 L (22-28) mmol.L VBG O2 Sat (Calc) 99.1 H (40-65) % VBG Base Excess -5.6 L (0.0-2.0) mmol/L VBG Potassium 4.9 (3.6-5.2) mmol/L Sodium 138.0 137 (132-148) mmol/L Chloride 106.0 111 H (98-107) mmol/L Glucose 352 H (65-105) mg/dl Lactate 3.4 H (0.7-2.1) mmol/L Mechanical Rate FiO2 21.0 % Tidal Volume PEEP Crit Value Called To Aislinn deluna rn ccu Crit Value Called By Jossy Blood Gas Notified Time 713 Potassium 4.8 (3.6-5.0) mmol/L Carbon Dioxide 13 L (21-33) mmol/L Anion Gap 18 (10-20) BUN 48 H (7-21) mg/dL Creatinine 2.9 H (0.7-1.2) mg/dl Est GFR ( Amer) 19 Est GFR (Non-Af Amer) 15 Random Glucose 284 H (70-110) mg/dL Calcium 8.0 L (8.4-10.5) mg/dL Phosphorus (2.5-4.5) mg/dL Magnesium (1.7-2.2) mg/dL Total Bilirubin 0.6 (0.2-1.3) mg/dL AST 516 H D (14-36) U/L ALT 36 (7-56) U/L Alkaline Phosphatase 123 (38-126) U/L Lactate Dehydrogenase (333-699) U/L Total Creatine Kinase (35-230) U/L CK-MB (CK-2) (0.0-3.6) ng/mL CK-MB (CK-2) % (2.5-3.0) % Troponin I ng/mL NT-Pro-B Natriuret Pep (0-450) pg/mL Total Protein 6.1 (5.8-8.3) g/dL Albumin 2.9 L (3.0-4.8) g/dL Globulin 3.3 gm/dL Albumin/Globulin Ratio 0.9 L (1.1-1.8) Procalcitonin (0.19-0.49) NG/ML Arterial Blood Potassium (3.6-5.2) mmol/L Venous Blood Potassium 4.9 (3.6-5.2) mmol/L Urine Color Yellow (YELLOW) Urine Appearance Sl cloudy (CLEAR) Urine pH 5.5 (4.7-8.0) Ur Specific [place] 1.025 (1.005-1.035) Urine Protein Trace H (<30 mg/dL) mg/dL Urine Glucose (UA) Negative (NEGATIVE) mg/dL Urine Ketones Negative (NEGATIVE) mg/dL Urine Blood Negative (NEGATIVE) Urine Nitrate Negative (NEGATIVE) Urine Bilirubin Negative (NEGATIVE) Urine Urobilinogen 0.2 (<1 E.U./dL) E.U./dL Ur Leukocyte Esterase Negative (NEGATIVE) [place]/uL Urine RBC 0 - 2 (0-2) /hpf Urine WBC 0 - 2 (0-6) /hpf Ur Epithelial Cells 0 - 2 (0-5) /hpf Urine Bacteria Mod (NONE) /hpf 04/29/18 04/29/18 04/29/18 Range/Units 04:18 03:05 01:58 WBC 28.3 H* 33.7 H* D (4.5-11.0) 10^3/uL RBC 3.00 L 3.16 L (3.5-6.1) 10^6/uL Hgb 9.0 L 9.5 L (12.0-16.0) g/dL Hct 27.6 L 30.2 L (36.0-48.0) % MCV 92.0 D 95.6 D (80.0-105.0) fl MCH 30.0 30.1 (25.0-35.0) pg MCHC 32.6 31.5 (31.0-37.0) g/dl RDW 13.4 13.3 (11.5-14.5) % Plt Count 337 393 (120.0-450.0) 10^3/uL MPV 9.7 10.0 (7.0-11.0) fl Neut % (Auto) 79.3 H 64.1 (50.0-68.0) % Lymph % (Auto) 17.5 L 32.1 (22.0-35.0) % [place] % (Auto) 3.0 3.5 (1.0-6.0) % Eos % (Auto) 0.0 L 0.1 L (1.5-5.0) % Baso % (Auto) 0.2 0.2 (0.0-3.0) % Lymph # (Auto) 4.9 H 10.8 H (1.2-3.4) [place] # (Auto) 0.9 H 1.2 H (0.1-0.6) Eos # (Auto) 0.0 0.0 (0.0-0.7) Baso # (Auto) 0.05 0.06 (0.0-2.0) K/mm3 Absolute Neuts (auto) 22.41 H 21.57 H (1.4-6.5) PT (9.4-12.5) SECONDS INR APTT (26.9-38.3) Seconds D-Dimer, Quantitative (0-243) ng/mlDDU pCO2 23 L (35-45) mm/Hg pO2 416.0 H (80-100) mm/Hg HCO3 8.2 L* ABG pH 7.16 L* (7.35-7.45) ABG Total CO2 8.9 L ABG O2 Saturation 99.4 H (95-98) % ABG Base Excess -18.7 L ABG Potassium 4.5 (3.6-5.2) mmol/L VBG pH (7.32-7.43) VBG pCO2 (40-60) VBG HCO3 (21-28) mmol/l VBG Total CO2 (22-28) mmol.L VBG O2 Sat (Calc) (40-65) % VBG Base Excess (0.0-2.0) mmol/L VBG Potassium (3.6-5.2) mmol/L Sodium 139.0 (132-148) mmol/L Chloride 111.0 H (98-107) mmol/L Glucose 252 H (65-105) mg/dl Lactate 7.2 H* (0.7-2.1) mmol/L Mechanical Rate 14 FiO2 100.0 % Tidal Volume 400 PEEP 5 Crit Value Called To Dr kaur Crit Value Called By Clive Blood Gas Notified Time 317 Potassium (3.6-5.0) mmol/L Carbon Dioxide (21-33) mmol/L Anion Gap (10-20) BUN (7-21) mg/dL Creatinine (0.7-1.2) mg/dl Est GFR ( Amer) Est GFR (Non-Af Amer) Random Glucose (70-110) mg/dL Calcium (8.4-10.5) mg/dL Phosphorus (2.5-4.5) mg/dL Magnesium (1.7-2.2) mg/dL Total Bilirubin (0.2-1.3) mg/dL AST (14-36) U/L ALT (7-56) U/L Alkaline Phosphatase (38-126) U/L Lactate Dehydrogenase (333-699) U/L Total Creatine Kinase (35-230) U/L CK-MB (CK-2) (0.0-3.6) ng/mL CK-MB (CK-2) % (2.5-3.0) % Troponin I ng/mL NT-Pro-B Natriuret Pep (0-450) pg/mL Total Protein (5.8-8.3) g/dL Albumin (3.0-4.8) g/dL Globulin gm/dL Albumin/Globulin Ratio (1.1-1.8) Procalcitonin (0.19-0.49) NG/ML Arterial Blood Potassium 4.5 (3.6-5.2) mmol/L Venous Blood Potassium (3.6-5.2) mmol/L Urine Color (YELLOW) Urine Appearance (CLEAR) Urine pH (4.7-8.0) Ur Specific [place] (1.005-1.035) Urine Protein (<30 mg/dL) mg/dL Urine Glucose (UA) (NEGATIVE) mg/dL Urine Ketones (NEGATIVE) mg/dL Urine Blood (NEGATIVE) Urine Nitrate (NEGATIVE) Urine Bilirubin (NEGATIVE) Urine Urobilinogen (<1 E.U./dL) E.U./dL Ur Leukocyte Esterase (NEGATIVE) [place]/uL Urine RBC (0-2) /hpf Urine WBC (0-6) /hpf Ur Epithelial Cells (0-5) /hpf Urine Bacteria (NONE) /hpf 04/29/18 04/29/18 04/29/18 Range/Units 01:58 01:58 01:45 WBC (4.5-11.0) 10^3/uL RBC (3.5-6.1) 10^6/uL Hgb (12.0-16.0) g/dL Hct (36.0-48.0) % MCV (80.0-105.0) fl MCH (25.0-35.0) pg MCHC (31.0-37.0) g/dl RDW (11.5-14.5) % Plt Count (120.0-450.0) 10^3/uL MPV (7.0-11.0) fl Neut % (Auto) (50.0-68.0) % Lymph % (Auto) (22.0-35.0) % [place] % (Auto) (1.0-6.0) % Eos % (Auto) (1.5-5.0) % Baso % (Auto) (0.0-3.0) % Lymph # (Auto) (1.2-3.4) [place] # (Auto) (0.1-0.6) Eos # (Auto) (0.0-0.7) Baso # (Auto) (0.0-2.0) K/mm3 Absolute Neuts (auto) (1.4-6.5) PT 15.8 H (9.4-12.5) SECONDS INR 1.42 APTT 60.4 H (26.9-38.3) Seconds D-Dimer, Quantitative > 5250 H (0-243) ng/mlDDU pCO2 75 H* (35-45) mm/Hg pO2 36.0 L* (80-100) mm/Hg HCO3 TEST NOT PERFORMED ABG pH < 6.80 L* (7.35-7.45) ABG Total CO2 TEST NOT PERFORMED ABG O2 Saturation 75.3 L (95-98) % ABG Base Excess TEST NOT PERFORMED ABG Potassium 4.9 (3.6-5.2) mmol/L VBG pH (7.32-7.43) VBG pCO2 (40-60) VBG HCO3 (21-28) mmol/l VBG Total CO2 (22-28) mmol.L VBG O2 Sat (Calc) (40-65) % VBG Base Excess (0.0-2.0) mmol/L VBG Potassium (3.6-5.2) mmol/L Sodium 138 140.0 (132-148) mmol/L Chloride 110 H 107.0 (98-107) mmol/L Glucose 265 H (65-105) mg/dl Lactate 10.7 H* (0.7-2.1) mmol/L Mechanical Rate FiO2 100.0 % Tidal Volume PEEP Crit Value Called To Jarrett lawrence rn 2rno Crit Value Called By [facility] Blood Gas Notified Time 207 Potassium 5.2 H (3.6-5.0) mmol/L Carbon Dioxide 13 L (21-33) mmol/L Anion Gap 20 (10-20) BUN 45 H (7-21) mg/dL Creatinine 2.6 H (0.7-1.2) mg/dl Est GFR ( Amer) 21 Est GFR (Non-Af Amer) 17 Random Glucose 266 H (70-110) mg/dL Calcium 8.2 L (8.4-10.5) mg/dL Phosphorus 6.7 H (2.5-4.5) mg/dL Magnesium 2.7 H (1.7-2.2) mg/dL Total Bilirubin 0.5 (0.2-1.3) mg/dL AST 234 H D (14-36) U/L ALT 19 (7-56) U/L Alkaline Phosphatase 120 (38-126) U/L Lactate Dehydrogenase 2404 H (333-699) U/L Total Creatine Kinase 412 H (35-230) U/L CK-MB (CK-2) 19.2 H (0.0-3.6) ng/mL CK-MB (CK-2) % 4.7 H (2.5-3.0) % Troponin I 10.50 H* D ng/mL NT-Pro-B Natriuret Pep 01942 H (0-450) pg/mL Total Protein 6.0 (5.8-8.3) g/dL Albumin 2.9 L (3.0-4.8) g/dL Globulin 3.1 gm/dL Albumin/Globulin Ratio 0.9 L (1.1-1.8) Procalcitonin (0.19-0.49) NG/ML Arterial Blood Potassium 4.9 (3.6-5.2) mmol/L Venous Blood Potassium (3.6-5.2) mmol/L Urine Color (YELLOW) Urine Appearance (CLEAR) Urine pH (4.7-8.0) Ur Specific [place] (1.005-1.035) Urine Protein (<30 mg/dL) mg/dL Urine Glucose (UA) (NEGATIVE) mg/dL Urine Ketones (NEGATIVE) mg/dL Urine Blood (NEGATIVE) Urine Nitrate (NEGATIVE) Urine Bilirubin (NEGATIVE) Urine Urobilinogen (<1 E.U./dL) E.U./dL Ur Leukocyte Esterase (NEGATIVE) [place]/uL Urine RBC (0-2) /hpf Urine WBC (0-6) /hpf Ur Epithelial Cells (0-5) /hpf Urine Bacteria (NONE) /hpf 04/28/18 04/28/18 04/28/18 Range/Units 19:36 13:45 01:40 WBC (4.5-11.0) 10^3/uL RBC (3.5-6.1) 10^6/uL Hgb (12.0-16.0) g/dL Hct (36.0-48.0) % MCV (80.0-105.0) fl MCH (25.0-35.0) pg MCHC (31.0-37.0) g/dl RDW (11.5-14.5) % Plt Count (120.0-450.0) 10^3/uL MPV (7.0-11.0) fl Neut % (Auto) (50.0-68.0) % Lymph % (Auto) (22.0-35.0) % [place] % (Auto) (1.0-6.0) % Eos % (Auto) (1.5-5.0) % Baso % (Auto) (0.0-3.0) % Lymph # (Auto) (1.2-3.4) [place] # (Auto) (0.1-0.6) Eos # (Auto) (0.0-0.7) Baso # (Auto) (0.0-2.0) K/mm3 Absolute Neuts (auto) (1.4-6.5) PT (9.4-12.5) SECONDS INR APTT 55.5 H (26.9-38.3) Seconds D-Dimer, Quantitative (0-243) ng/mlDDU pCO2 (35-45) mm/Hg pO2 (80-100) mm/Hg HCO3 ABG pH (7.35-7.45) ABG Total CO2 ABG O2 Saturation (95-98) % ABG Base Excess ABG Potassium (3.6-5.2) mmol/L VBG pH (7.32-7.43) VBG pCO2 (40-60) VBG HCO3 (21-28) mmol/l VBG Total CO2 (22-28) mmol.L VBG O2 Sat (Calc) (40-65) % VBG Base Excess (0.0-2.0) mmol/L VBG Potassium (3.6-5.2) mmol/L Sodium (132-148) mmol/L Chloride (98-107) mmol/L Glucose (65-105) mg/dl Lactate (0.7-2.1) mmol/L Mechanical Rate FiO2 % Tidal Volume PEEP Crit Value Called To Crit Value Called By Blood Gas Notified Time Potassium (3.6-5.0) mmol/L Carbon Dioxide (21-33) mmol/L Anion Gap (10-20) BUN (7-21) mg/dL Creatinine (0.7-1.2) mg/dl Est GFR ( Amer) Est GFR (Non-Af Amer) Random Glucose (70-110) mg/dL Calcium (8.4-10.5) mg/dL Phosphorus (2.5-4.5) mg/dL Magnesium (1.7-2.2) mg/dL Total Bilirubin (0.2-1.3) mg/dL AST (14-36) U/L ALT (7-56) U/L Alkaline Phosphatase (38-126) U/L Lactate Dehydrogenase (333-699) U/L Total Creatine Kinase (35-230) U/L CK-MB (CK-2) (0.0-3.6) ng/mL CK-MB (CK-2) % (2.5-3.0) % Troponin I 4.49 H* D ng/mL NT-Pro-B Natriuret Pep (0-450) pg/mL Total Protein (5.8-8.3) g/dL Albumin (3.0-4.8) g/dL Globulin gm/dL Albumin/Globulin Ratio (1.1-1.8) Procalcitonin 0.62 H (0.19-0.49) NG/ML Arterial Blood Potassium (3.6-5.2) mmol/L Venous Blood Potassium (3.6-5.2) mmol/L Urine Color (YELLOW) Urine Appearance (CLEAR) Urine pH (4.7-8.0) Ur Specific [place] (1.005-1.035) Urine Protein (<30 mg/dL) mg/dL Urine Glucose (UA) (NEGATIVE) mg/dL Urine Ketones (NEGATIVE) mg/dL Urine Blood (NEGATIVE) Urine Nitrate (NEGATIVE) Urine Bilirubin (NEGATIVE) Urine Urobilinogen (<1 E.U./dL) E.U./dL Ur Leukocyte Esterase (NEGATIVE) [place]/uL Urine RBC (0-2) /hpf Urine WBC (0-6) /hpf Ur Epithelial Cells (0-5) /hpf Urine Bacteria (NONE) /hpf Laboratory Results - last 24 hr 04/28/18 04/28/18 04/28/18 01:40 13:45 19:36 WBC RBC Hgb Hct MCV MCH MCHC RDW Plt Count MPV Neut % (Auto) Lymph % (Auto) [place] % (Auto) Eos % (Auto) Baso % (Auto) Lymph # (Auto) [place] # (Auto) Eos # (Auto) Baso # (Auto) Absolute Neuts (auto) PT INR APTT 55.5 H D-Dimer, Quantitative pCO2 pO2 HCO3 ABG pH ABG Total CO2 ABG O2 Saturation ABG Base Excess ABG Potassium VBG pH VBG pCO2 VBG HCO3 VBG Total CO2 VBG O2 Sat (Calc) VBG Base Excess VBG Potassium Sodium Chloride Glucose Lactate Mechanical Rate FiO2 Tidal Volume PEEP Crit Value Called To Crit Value Called By Blood Gas Notified Time Potassium Carbon Dioxide Anion Gap BUN Creatinine Est GFR ( Amer) Est GFR (Non-Af Amer) Random Glucose Calcium Phosphorus Magnesium Total Bilirubin AST ALT Alkaline Phosphatase Lactate Dehydrogenase Total Creatine Kinase CK-MB (CK-2) CK-MB (CK-2) % Troponin I 4.49 H* D NT-Pro-B Natriuret Pep Total Protein Albumin Globulin Albumin/Globulin Ratio Procalcitonin 0.62 H Arterial Blood Potassium Venous Blood Potassium Urine Color Urine Appearance Urine pH Ur Specific [place] Urine Protein Urine Glucose (UA) Urine Ketones Urine Blood Urine Nitrate Urine Bilirubin Urine Urobilinogen Ur Leukocyte Esterase Urine RBC Urine WBC Ur Epithelial Cells Urine Bacteria 04/29/18 04/29/18 04/29/18 01:45 01:58 01:58 WBC RBC Hgb Hct MCV MCH MCHC RDW Plt Count MPV Neut % (Auto) Lymph % (Auto) [place] % (Auto) Eos % (Auto) Baso % (Auto) Lymph # (Auto) [place] # (Auto) Eos # (Auto) Baso # (Auto) Absolute Neuts (auto) PT 15.8 H INR 1.42 APTT 60.4 H D-Dimer, Quantitative > 5250 H pCO2 75 H* pO2 36.0 L* HCO3 TEST NOT PERFORMED ABG pH < 6.80 L* ABG Total CO2 TEST NOT PERFORMED ABG O2 Saturation 75.3 L ABG Base Excess TEST NOT PERFORMED ABG Potassium 4.9 VBG pH VBG pCO2 VBG HCO3 VBG Total CO2 VBG O2 Sat (Calc) VBG Base Excess VBG Potassium Sodium 140.0 138 Chloride 107.0 110 H Glucose 265 H Lactate 10.7 H* Mechanical Rate FiO2 100.0 Tidal Volume PEEP Crit Value Called To Jarrett lawrence rn 2rno Crit Value Called By [facility] Blood Gas Notified Time 207 Potassium 5.2 H Carbon Dioxide 13 L Anion Gap 20 BUN 45 H Creatinine 2.6 H Est GFR ( Amer) 21 Est GFR (Non-Af Amer) 17 Random Glucose 266 H Calcium 8.2 L Phosphorus 6.7 H Magnesium 2.7 H Total Bilirubin 0.5 AST 234 H D ALT 19 Alkaline Phosphatase 120 Lactate Dehydrogenase 2404 H Total Creatine Kinase 412 H CK-MB (CK-2) 19.2 H CK-MB (CK-2) % 4.7 H Troponin I 10.50 H* D NT-Pro-B Natriuret Pep 47111 H Total Protein 6.0 Albumin 2.9 L Globulin 3.1 Albumin/Globulin Ratio 0.9 L Procalcitonin Arterial Blood Potassium 4.9 Venous Blood Potassium Urine Color Urine Appearance Urine pH Ur Specific [place] Urine Protein Urine Glucose (UA) Urine Ketones Urine Blood Urine Nitrate Urine Bilirubin Urine Urobilinogen Ur Leukocyte Esterase Urine RBC Urine WBC Ur Epithelial Cells Urine Bacteria 04/29/18 04/29/18 04/29/18 01:58 03:05 04:18 WBC 33.7 H* D 28.3 H* RBC 3.16 L 3.00 L Hgb 9.5 L 9.0 L Hct 30.2 L 27.6 L MCV 95.6 D 92.0 D MCH 30.1 30.0 MCHC 31.5 32.6 RDW 13.3 13.4 Plt Count 393 337 MPV 10.0 9.7 Neut % (Auto) 64.1 79.3 H Lymph % (Auto) 32.1 17.5 L [place] % (Auto) 3.5 3.0 Eos % (Auto) 0.1 L 0.0 L Baso % (Auto) 0.2 0.2 Lymph # (Auto) 10.8 H 4.9 H [place] # (Auto) 1.2 H 0.9 H Eos # (Auto) 0.0 0.0 Baso # (Auto) 0.06 0.05 Absolute Neuts (auto) 21.57 H 22.41 H PT INR APTT D-Dimer, Quantitative pCO2 23 L pO2 416.0 H HCO3 8.2 L* ABG pH 7.16 L* ABG Total CO2 8.9 L ABG O2 Saturation 99.4 H ABG Base Excess -18.7 L ABG Potassium 4.5 VBG pH VBG pCO2 VBG HCO3 VBG Total CO2 VBG O2 Sat (Calc) VBG Base Excess VBG Potassium Sodium 139.0 Chloride 111.0 H Glucose 252 H Lactate 7.2 H* Mechanical Rate 14 FiO2 100.0 Tidal Volume 400 PEEP 5 Crit Value Called To Dr kaur Crit Value Called By Blood Gas Notified Time 317 Potassium Carbon Dioxide Anion Gap BUN Creatinine Est GFR ( Amer) Est GFR (Non-Af Amer) Random Glucose Calcium Phosphorus Magnesium Total Bilirubin AST ALT Alkaline Phosphatase Lactate Dehydrogenase Total Creatine Kinase CK-MB (CK-2) CK-MB (CK-2) % Troponin I NT-Pro-B Natriuret Pep Total Protein Albumin Globulin Albumin/Globulin Ratio Procalcitonin Arterial Blood Potassium 4.5 Venous Blood Potassium Urine Color Urine Appearance Urine pH Ur Specific [place] Urine Protein Urine Glucose (UA) Urine Ketones Urine Blood Urine Nitrate Urine Bilirubin Urine Urobilinogen Ur Leukocyte Esterase Urine RBC Urine WBC Ur Epithelial Cells Urine Bacteria 04/29/18 04/29/18 04/29/18 04:18 05:15 06:45 WBC RBC Hgb Hct MCV MCH MCHC RDW Plt Count MPV Neut % (Auto) Lymph % (Auto) [place] % (Auto) Eos % (Auto) Baso % (Auto) Lymph # (Auto) [place] # (Auto) Eos # (Auto) Baso # (Auto) Absolute Neuts (auto) PT INR APTT D-Dimer, Quantitative pCO2 pO2 192 H HCO3 ABG pH ABG Total CO2 ABG O2 Saturation ABG Base Excess ABG Potassium VBG pH 7.39 VBG pCO2 30.0 L VBG HCO3 18.2 L VBG Total CO2 19.1 L VBG O2 Sat (Calc) 99.1 H VBG Base Excess -5.6 L VBG Potassium 4.9 Sodium 137 138.0 Chloride 111 H 106.0 Glucose 352 H Lactate 3.4 H Mechanical Rate FiO2 21.0 Tidal Volume PEEP Crit Value Called To Aislinn deluna rn ccu Crit Value Called By Jossy Blood Gas Notified Time 713 Potassium 4.8 Carbon Dioxide 13 L Anion Gap 18 BUN 48 H Creatinine 2.9 H Est GFR ( Amer) 19 Est GFR (Non-Af Amer) 15 Random Glucose 284 H Calcium 8.0 L Phosphorus Magnesium Total Bilirubin 0.6 AST 516 H D ALT 36 Alkaline Phosphatase 123 Lactate Dehydrogenase Total Creatine Kinase CK-MB (CK-2) CK-MB (CK-2) % Troponin I NT-Pro-B Natriuret Pep Total Protein 6.1 Albumin 2.9 L Globulin 3.3 Albumin/Globulin Ratio 0.9 L Procalcitonin Arterial Blood Potassium Venous Blood Potassium 4.9 Urine Color Yellow Urine Appearance Sl cloudy Urine pH 5.5 Ur Specific [place] 1.025 Urine Protein Trace H Urine Glucose (UA) Negative Urine Ketones Negative Urine Blood Negative Urine Nitrate Negative Urine Bilirubin Negative Urine Urobilinogen 0.2 Ur Leukocyte Esterase Negative Urine RBC 0 - 2 Urine WBC 0 - 2 Ur Epithelial Cells 0 - 2 Urine Bacteria Mod Radiology Impressions: Radiology Impressions Chest X-Ray 04/28/18 00:46 IMPRESSION: Acute, presumed cardiogenic pulmonary edema. 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 No definite acute intracranial findings by standard MR criteria. Follow-up MRI or CT is available as clinically warranted. Concordant preliminary report from [facility], 04/29/2018 2:51 a.m.. EKG/Cardiology Studies: Cardiology / EKG Studies 04/28/18 13:32 ELECTROCARDIOGRAM Q6H Comment: Reason For Exam: hyypoxia, sob, chf Fingerstick Blood Sugar Results: 323 Review of Systems - Review of Systems Systems not reviewed;Unavailable: Intubated Critical Care Progress Note - Ventilator Checklist Head of Bed 30 Degrees: Yes PUD Prophalyxis: Yes DVT Prophylaxis: Yes - Nutrition Nutrition: Nutrition Category Date Time Status NPO Diet [DIET] Diets 04/29/18 Breakfast Ordered Assessment/Plan - Assessment and Plan (Free Text) Assessment: 88 year old female with past medical history of right ICA stenosis status post carotid endarterectomy, hypertension, hyperlipidemia, diabetes mellitus type II, Parkinson's disease presents with ankle pain status post multiple falls. Patient was found to have NSTEMI, started on heparin drip and then went bradycardia and went into PEA. Patient was given 3 rounds of epinephrine and achieved ROSC. Plan: Neuro: -Intubated and sedated on fentanyl. Parkinson's disease -Continue with levodopa/carbidopa Cardio: NSTEMI -RRR, hypotension at 60s/40s -Heparin drip started at 12 U/kg/hr -Continue with aspirin, plavix, lopressor. -Maintain MAP>65. -Monitor for S/S, HD compromise. Hypertension -Currently hypotensive so hold all anti-hypertensive medications and propofol. -Due to hypotension, central line was placed and patient was started on levophed 4 mcg/min, vasopressin 0.03U/min, dobutamine at 2.5 mcg/kg/min, and solucortef 50 Q6 Pulm: Hypoxic, Hypercarbic respiratory failure -Ventilator settings: 400/14/5/50% -ABG: pH: 7.16, pO2: 416, pCO2: 23 -No signs of respiratory distress. CTA B/L -Patient is stating well on room air. -Maintain O2 saturation>95%. -Head of bed to 30 degrees -Daily CXR and ABGs -Daily weaning trials and sedation vacation -Head of bed to 30 degrees -Conservative fluid management -Maintain oral hygiene COPD -Duonebs Q4 PRN GI: Diet -NPO GI prophylaxis -Protonix 40 mg IV daily /Nephro: -BUN/Cr stable at 48/2.9. Creatinine was 2.1 yesterday. Baseline is 1.0 -Avoid nephrotoxins such as lisinopril and losartan. -UCx shows gram negative rods covered with cefepime. -Possibly cardiogenic shock causing ATN. -Good urine output. Masters intact -Continue monitoring. -Replete electrolytes as needed. -Maintain euvolemia. Endocrinology: -Random glucose: 284 -Medium sliding scale insulin -Maintain euglycemia. Heme/Onc: -H/H stable at 9.0/27.6 -No signs of HD compromise. -Continue monitoring H/H DVT prophylaxis -heparin drip at 12 U/kg/hr ID: -Afebrile, leukocytosis improved to 28.3 from 33.7 -Blood culture negative in 48 hours -UCx: gram negative lalita -Procalcitonin follow up -Lactate: trending down to 3.4 from 7.2 -Continue with vancomycin and cefepime day 2 -Monitor for signs and symptoms of infection. Patient seen and examined with Dr. Connell. - Date & Time Date: 04/29/18 Time: 12:21 <Yonny Connell - Last Filed: 04/29/18 18:19> CCU Objective - Vital Signs / Intake & Output Vital Signs (Last 4 hours): Vital Signs Pulse 04/29/18 15:53 92 H Intake and Output (Last 8hrs): Intake & Output 04/29/18 04/29/18 04/29/18 06:59 14:59 22:59 Intake Total 510 60 160 Output Total 600 Balance -90 60 160 Weight 145 lb Intake: IV 510 60 160 Left Forearm 500 Oral 0 Output: Urine 600 Urethral (Masters) 300 Urine, Voided 300 Stool 0 Other: # Voids Urine, Voided 2 - Medications Active Medications: Active Medications Generic Name Dose Route Start Last Admin Trade Name Freq PRN Reason Stop Dose Admin Acetaminophen 650 mg 04/28/18 00:59 04/28/18 01:29 Tylenol 325mg Tab PO 650 mg Q6H PRN Administration Fever >100.4 F Albuterol/Ipratropium 3 ml 04/28/18 00:32 04/29/18 14:06 Duoneb 3 Mg/0.5 Mg (3 Ml) Ud IH 3 ml [id number] PRN Administration Shortness of Breath Aspirin 81 mg 04/27/18 10:00 04/29/18 10:33 Aspirin Chewable PO 81 mg DAILY STEVEN Administration Carbidopa/Levodopa/Entacapone 1 tab 04/27/18 10:00 04/29/18 17:04 Stalevo 150 PO 1 tab TID STEVEN Administration Clopidogrel Bisulfate 75 mg 04/29/18 10:00 04/29/18 10:33 Plavix PO 75 mg DAILY STEVEN Administration Dextrose 0 ml 04/29/18 12:32 Dextrose 50% Inj IV STAT PRN Hypoglycemia Protocol Protocol Docusate Sodium 100 mg 04/27/18 10:00 04/29/18 10:33 Colace PO 100 mg BID STEVEN Administration Glyburide 5 mg 04/28/18 17:00 04/29/18 08:22 Micronase PO 5 mg 0800,1700 STEVEN Administration Hydrocortisone Sodium Succinate 50 mg 04/29/18 12:30 04/29/18 14:32 Solu-Cortef IVP 50 mg Q6H STEVEN Administration Heparin Sodium/Sodium Chloride 25,000 units in 250 mls @ 7.588 mls/hr 04/28/18 10:00 04/29/18 07:35 Heparin 32089 Units/250ml 1/2 Normal Saline IV 12 units/kg/hr .Q24H STEVEN 7.588 mls/hr Titration Protocol 12 UNITS/KG/HR Sodium Bicarbonate 100 meq/ 1,100 mls @ 60 mls/hr 04/29/18 04:15 04/29/18 05:12 Sodium Chloride IV 60 mls/hr .[id number] STEVEN Administration Propofol 1,000 mg in 100 mls @ 1.897 mls/hr 04/29/18 02:00 04/29/18 03:30 Diprivan IV 0 mcg/kg/min .Q24H PRN 0 mls/hr TITRATE PER MD ORDER Titration Protocol 5 MCG/KG/MIN Aztreonam 100 mls @ 100 mls/hr 04/29/18 09:45 04/29/18 14:22 Azactam 1 Gm IVPB 05/06/18 09:46 100 mls/hr Q8 STEVEN Administration Protocol Dobutamine HCl/Dextrose 500 mg in 250 mls @ 4.742 mls/hr 04/29/18 12:26 04/29/18 14:14 Dobutamine/Dextrose 5% 500mg/250ml IV 2.5 mcg/kg/min .Q24H PRN 4.742 mls/hr TITRATE PER PROTOCOL Administration Protocol 2.5 MCG/KG/MIN NOREPINEPHRINE BIT/0.9 % NACL 4 mg in 250 mls @ 15 mls/hr 04/29/18 12:25 04/29/18 17:59 Levophed 4 Mg/ 250 Ml Ns Premixed IV 2 mcg/min .[id number] PRN 7.5 mls/hr TITRATE PER MD ORDER Titration Protocol 4 MCG/MIN Fentanyl Citrate 1,000 mcg in 100 mls @ 7.5 mls/hr 04/29/18 12:27 04/29/18 15:03 Fentanyl Citrate/Sodium Chloride 1 Mg/100 Ml IV Infused .[id number] PRN Titration TITRATE PER MD ORDER Protocol 75 MCG/HR Dextrose 1,000 mls @ 0 mls/hr 04/29/18 12:32 Dextrose 5% In Water 1000 Ml IV .Q0M PRN Hypoglycemia Protocol Protocol Per Protocol Vasopressin 20 units/ Sodium 101 mls @ 9.09 mls/hr 04/29/18 12:39 04/29/18 13:17 Chloride IV 9.09 mls/hr .[id number] STEVEN Administration Protocol 0.03 U/MIN Sodium Chloride 1,000 mls @ 125 mls/hr 04/29/18 13:09 04/29/18 14:15 Sodium Chloride 0.9% IV 04/29/18 21:08 125 mls/hr .Q8H STA Administration Insulin Human Lispro 0 units 04/29/18 12:45 04/29/18 17:59 Humalog Med SC 5 u Q6H STEVEN Administration Protocol Lisinopril 10 mg 04/27/18 10:00 04/29/18 10:25 Zestril PO Not Given DAILY STEVEN Metoprolol Tartrate 25 mg 04/28/18 08:32 04/29/18 10:25 Lopressor PO Not Given BID STEVEN Midazolam HCl 5 mg 04/29/18 12:27 Versed Inj IVP Q5H PRN Agitation Morphine Sulfate 0.5 mg 04/27/18 08:38 04/28/18 01:27 Morphine IVP 0.5 mg Q4 PRN Administration Pain, moderate (4-7) Nicotine 1 patch 04/29/18 10:00 04/29/18 10:35 Nicoderm Cq TD 1 patch DAILY STEVEN Administration Pantoprazole Sodium 40 mg 04/29/18 10:00 04/29/18 10:36 Protonix Inj IVP 40 mg DAILY STEVEN Administration Sitagliptin Phosphate 50 mg 04/28/18 10:00 04/29/18 10:36 Januvia PO 50 mg DAILY STEVEN Administration Zolpidem Tartrate 5 mg 04/28/18 20:25 04/28/18 22:12 Ambien PO 5 mg HS PRN Administration Insomnia Protocol - Patient Studies Lab Studies: Microbiology Studies 04/26/18 18:00 Blood Culture - Preliminary Blood NO GROWTH AFTER 3 DAYS 04/26/18 17:30 Blood Culture - Preliminary Blood NO GROWTH AFTER 3 DAYS 04/26/18 18:00 Urine Culture - Final Urine Random Escherichia Coli Lab Studies 04/29/18 04/29/18 04/29/18 Range/Units 14:00 14:00 14:00 WBC 30.8 H* (4.5-11.0) 10^3/uL RBC 2.85 L (3.5-6.1) 10^6/uL Hgb 8.5 L (12.0-16.0) g/dL Hct 25.4 L (36.0-48.0) % MCV 89.1 (80.0-105.0) fl MCH 29.8 (25.0-35.0) pg MCHC 33.5 (31.0-37.0) g/dl RDW 13.3 (11.5-14.5) % Plt Count 320 (120.0-450.0) 10^3/uL MPV 9.9 (7.0-11.0) fl Neut % (Auto) 79.7 H (50.0-68.0) % Lymph % (Auto) 18.1 L (22.0-35.0) % [place] % (Auto) 2.1 (1.0-6.0) % Eos % (Auto) 0.0 L (1.5-5.0) % Baso % (Auto) 0.1 (0.0-3.0) % Lymph # (Auto) 5.6 H (1.2-3.4) [place] # (Auto) 0.6 (0.1-0.6) Eos # (Auto) 0.0 (0.0-0.7) Baso # (Auto) 0.02 (0.0-2.0) K/mm3 Absolute Neuts (auto) 24.57 H (1.4-6.5) PT 18.7 H (9.4-12.5) SECONDS INR 1.68 APTT 58.9 H (26.9-38.3) Seconds D-Dimer, Quantitative (0-243) ng/mlDDU pCO2 (35-45) mm/Hg pO2 (80-100) mm/Hg HCO3 ABG pH (7.35-7.45) ABG Total CO2 ABG O2 Saturation (95-98) % ABG Base Excess ABG Potassium (3.6-5.2) mmol/L VBG pH (7.32-7.43) VBG pCO2 (40-60) VBG HCO3 (21-28) mmol/l VBG Total CO2 (22-28) mmol.L VBG O2 Sat (Calc) (40-65) % VBG Base Excess (0.0-2.0) mmol/L VBG Potassium (3.6-5.2) mmol/L Sodium 141 (132-148) mmol/L Chloride 111 H (98-107) mmol/L Glucose (65-105) mg/dl Lactate (0.7-2.1) mmol/L Mechanical Rate FiO2 % Tidal Volume PEEP Crit Value Called To Crit Value Called By Blood Gas Notified Time Potassium 4.0 (3.6-5.0) mmol/L Carbon Dioxide 23 (21-33) mmol/L Anion Gap 11 (10-20) BUN 59 H (7-21) mg/dL Creatinine 3.0 H (0.7-1.2) mg/dl Est GFR ( Amer) 18 Est GFR (Non-Af Amer) 15 Random Glucose 253 H (70-110) mg/dL Calcium 7.2 L (8.4-10.5) mg/dL Phosphorus 4.6 H (2.5-4.5) mg/dL Magnesium 2.2 (1.7-2.2) mg/dL Total Bilirubin 0.6 (0.2-1.3) mg/dL AST 937 H D (14-36) U/L ALT 54 (7-56) U/L Alkaline Phosphatase 105 (38-126) U/L Lactate Dehydrogenase (333-699) U/L Total Creatine Kinase (35-230) U/L CK-MB (CK-2) (0.0-3.6) ng/mL CK-MB (CK-2) % (2.5-3.0) % Troponin I 12.60 H* ng/mL NT-Pro-B Natriuret Pep (0-450) pg/mL Total Protein 5.6 L (5.8-8.3) g/dL Albumin 2.7 L (3.0-4.8) g/dL Globulin 2.9 gm/dL Albumin/Globulin Ratio 0.9 L (1.1-1.8) Procalcitonin (0.19-0.49) NG/ML Arterial Blood Potassium (3.6-5.2) mmol/L Venous Blood Potassium (3.6-5.2) mmol/L Urine Color (YELLOW) Urine Appearance (CLEAR) Urine pH (4.7-8.0) Ur Specific [place] (1.005-1.035) Urine Protein (<30 mg/dL) mg/dL Urine Glucose (UA) (NEGATIVE) mg/dL Urine Ketones (NEGATIVE) mg/dL Urine Blood (NEGATIVE) Urine Nitrate (NEGATIVE) Urine Bilirubin (NEGATIVE) Urine Urobilinogen (<1 E.U./dL) E.U./dL Ur Leukocyte Esterase (NEGATIVE) [place]/uL Urine RBC (0-2) /hpf Urine WBC (0-6) /hpf Ur Epithelial Cells (0-5) /hpf Urine Bacteria (NONE) /hpf 04/29/18 04/29/18 04/29/18 Range/Units 13:30 10:40 10:40 WBC (4.5-11.0) 10^3/uL RBC (3.5-6.1) 10^6/uL Hgb (12.0-16.0) g/dL Hct (36.0-48.0) % MCV (80.0-105.0) fl MCH (25.0-35.0) pg MCHC (31.0-37.0) g/dl RDW (11.5-14.5) % Plt Count (120.0-450.0) 10^3/uL MPV (7.0-11.0) fl Neut % (Auto) (50.0-68.0) % Lymph % (Auto) (22.0-35.0) % [place] % (Auto) (1.0-6.0) % Eos % (Auto) (1.5-5.0) % Baso % (Auto) (0.0-3.0) % Lymph # (Auto) (1.2-3.4) [place] # (Auto) (0.1-0.6) Eos # (Auto) (0.0-0.7) Baso # (Auto) (0.0-2.0) K/mm3 Absolute Neuts (auto) (1.4-6.5) PT (9.4-12.5) SECONDS INR APTT (26.9-38.3) Seconds D-Dimer, Quantitative (0-243) ng/mlDDU pCO2 30 L (35-45) mm/Hg pO2 180.0 H 105 H (80-100) mm/Hg HCO3 19.0 L ABG pH 7.41 (7.35-7.45) ABG Total CO2 19.9 L ABG O2 Saturation 99.0 H (95-98) % ABG Base Excess -4.5 L ABG Potassium 3.8 (3.6-5.2) mmol/L VBG pH 7.46 H (7.32-7.43) VBG pCO2 28.0 L (40-60) VBG HCO3 19.9 L (21-28) mmol/l VBG Total CO2 20.8 L (22-28) mmol.L VBG O2 Sat (Calc) 98.5 H (40-65) % VBG Base Excess -2.6 L (0.0-2.0) mmol/L VBG Potassium 4.5 (3.6-5.2) mmol/L Sodium 142.0 141.0 (132-148) mmol/L Chloride 111.0 H 110.0 H (98-107) mmol/L Glucose 259 H 320 H (65-105) mg/dl Lactate 1.3 2.0 (0.7-2.1) mmol/L Mechanical Rate 14 FiO2 50.0 21.0 % Tidal Volume 400 PEEP 5 Crit Value Called To Miriam Crit Value Called By Ab Blood Gas Notified Time 1100 Potassium (3.6-5.0) mmol/L Carbon Dioxide (21-33) mmol/L Anion Gap (10-20) BUN (7-21) mg/dL Creatinine (0.7-1.2) mg/dl Est GFR ( Amer) Est GFR (Non-Af Amer) Random Glucose (70-110) mg/dL Calcium (8.4-10.5) mg/dL Phosphorus (2.5-4.5) mg/dL Magnesium (1.7-2.2) mg/dL Total Bilirubin (0.2-1.3) mg/dL AST (14-36) U/L ALT (7-56) U/L Alkaline Phosphatase (38-126) U/L Lactate Dehydrogenase (333-699) U/L Total Creatine Kinase (35-230) U/L CK-MB (CK-2) (0.0-3.6) ng/mL CK-MB (CK-2) % (2.5-3.0) % Troponin I ng/mL NT-Pro-B Natriuret Pep (0-450) pg/mL Total Protein (5.8-8.3) g/dL Albumin (3.0-4.8) g/dL Globulin gm/dL Albumin/Globulin Ratio (1.1-1.8) Procalcitonin 27.27 H (0.19-0.49) NG/ML Arterial Blood Potassium 3.8 (3.6-5.2) mmol/L Venous Blood Potassium 4.5 (3.6-5.2) mmol/L Urine Color (YELLOW) Urine Appearance (CLEAR) Urine pH (4.7-8.0) Ur Specific [place] (1.005-1.035) Urine Protein (<30 mg/dL) mg/dL Urine Glucose (UA) (NEGATIVE) mg/dL Urine Ketones (NEGATIVE) mg/dL Urine Blood (NEGATIVE) Urine Nitrate (NEGATIVE) Urine Bilirubin (NEGATIVE) Urine Urobilinogen (<1 E.U./dL) E.U./dL Ur Leukocyte Esterase (NEGATIVE) [place]/uL Urine RBC (0-2) /hpf Urine WBC (0-6) /hpf Ur Epithelial Cells (0-5) /hpf Urine Bacteria (NONE) /hpf 04/29/18 04/29/18 04/29/18 Range/Units 06:45 05:15 04:18 WBC (4.5-11.0) 10^3/uL RBC (3.5-6.1) 10^6/uL Hgb (12.0-16.0) g/dL Hct (36.0-48.0) % MCV (80.0-105.0) fl MCH (25.0-35.0) pg MCHC (31.0-37.0) g/dl RDW (11.5-14.5) % Plt Count (120.0-450.0) 10^3/uL MPV (7.0-11.0) fl Neut % (Auto) (50.0-68.0) % Lymph % (Auto) (22.0-35.0) % [place] % (Auto) (1.0-6.0) % Eos % (Auto) (1.5-5.0) % Baso % (Auto) (0.0-3.0) % Lymph # (Auto) (1.2-3.4) [place] # (Auto) (0.1-0.6) Eos # (Auto) (0.0-0.7) Baso # (Auto) (0.0-2.0) K/mm3 Absolute Neuts (auto) (1.4-6.5) PT (9.4-12.5) SECONDS INR APTT (26.9-38.3) Seconds D-Dimer, Quantitative (0-243) ng/mlDDU pCO2 (35-45) mm/Hg pO2 192 H (80-100) mm/Hg HCO3 ABG pH (7.35-7.45) ABG Total CO2 ABG O2 Saturation (95-98) % ABG Base Excess ABG Potassium (3.6-5.2) mmol/L VBG pH 7.39 (7.32-7.43) VBG pCO2 30.0 L (40-60) VBG HCO3 18.2 L (21-28) mmol/l VBG Total CO2 19.1 L (22-28) mmol.L VBG O2 Sat (Calc) 99.1 H (40-65) % VBG Base Excess -5.6 L (0.0-2.0) mmol/L VBG Potassium 4.9 (3.6-5.2) mmol/L Sodium 138.0 137 (132-148) mmol/L Chloride 106.0 111 H (98-107) mmol/L Glucose 352 H (65-105) mg/dl Lactate 3.4 H (0.7-2.1) mmol/L Mechanical Rate FiO2 21.0 % Tidal Volume PEEP Crit Value Called To Aislinn deluna rn ccu Crit Value Called By Jossy Blood Gas Notified Time 713 Potassium 4.8 (3.6-5.0) mmol/L Carbon Dioxide 13 L (21-33) mmol/L Anion Gap 18 (10-20) BUN 48 H (7-21) mg/dL Creatinine 2.9 H (0.7-1.2) mg/dl Est GFR ( Amer) 19 Est GFR (Non-Af Amer) 15 Random Glucose 284 H (70-110) mg/dL Calcium 8.0 L (8.4-10.5) mg/dL Phosphorus (2.5-4.5) mg/dL Magnesium (1.7-2.2) mg/dL Total Bilirubin 0.6 (0.2-1.3) mg/dL AST 516 H D (14-36) U/L ALT 36 (7-56) U/L Alkaline Phosphatase 123 (38-126) U/L Lactate Dehydrogenase (333-699) U/L Total Creatine Kinase (35-230) U/L CK-MB (CK-2) (0.0-3.6) ng/mL CK-MB (CK-2) % (2.5-3.0) % Troponin I ng/mL NT-Pro-B Natriuret Pep (0-450) pg/mL Total Protein 6.1 (5.8-8.3) g/dL Albumin 2.9 L (3.0-4.8) g/dL Globulin 3.3 gm/dL Albumin/Globulin Ratio 0.9 L (1.1-1.8) Procalcitonin (0.19-0.49) NG/ML Arterial Blood Potassium (3.6-5.2) mmol/L Venous Blood Potassium 4.9 (3.6-5.2) mmol/L Urine Color Yellow (YELLOW) Urine Appearance Sl cloudy (CLEAR) Urine pH 5.5 (4.7-8.0) Ur Specific [place] 1.025 (1.005-1.035) Urine Protein Trace H (<30 mg/dL) mg/dL Urine Glucose (UA) Negative (NEGATIVE) mg/dL Urine Ketones Negative (NEGATIVE) mg/dL Urine Blood Negative (NEGATIVE) Urine Nitrate Negative (NEGATIVE) Urine Bilirubin Negative (NEGATIVE) Urine Urobilinogen 0.2 (<1 E.U./dL) E.U./dL Ur Leukocyte Esterase Negative (NEGATIVE) [place]/uL Urine RBC 0 - 2 (0-2) /hpf Urine WBC 0 - 2 (0-6) /hpf Ur Epithelial Cells 0 - 2 (0-5) /hpf Urine Bacteria Mod (NONE) /hpf 04/29/18 04/29/18 04/29/18 Range/Units 04:18 03:05 01:58 WBC 28.3 H* 33.7 H* D (4.5-11.0) 10^3/uL RBC 3.00 L 3.16 L (3.5-6.1) 10^6/uL Hgb 9.0 L 9.5 L (12.0-16.0) g/dL Hct 27.6 L 30.2 L (36.0-48.0) % MCV 92.0 D 95.6 D (80.0-105.0) fl MCH 30.0 30.1 (25.0-35.0) pg MCHC 32.6 31.5 (31.0-37.0) g/dl RDW 13.4 13.3 (11.5-14.5) % Plt Count 337 393 (120.0-450.0) 10^3/uL MPV 9.7 10.0 (7.0-11.0) fl Neut % (Auto) 79.3 H 64.1 (50.0-68.0) % Lymph % (Auto) 17.5 L 32.1 (22.0-35.0) % [place] % (Auto) 3.0 3.5 (1.0-6.0) % Eos % (Auto) 0.0 L 0.1 L (1.5-5.0) % Baso % (Auto) 0.2 0.2 (0.0-3.0) % Lymph # (Auto) 4.9 H 10.8 H (1.2-3.4) [place] # (Auto) 0.9 H 1.2 H (0.1-0.6) Eos # (Auto) 0.0 0.0 (0.0-0.7) Baso # (Auto) 0.05 0.06 (0.0-2.0) K/mm3 Absolute Neuts (auto) 22.41 H 21.57 H (1.4-6.5) PT (9.4-12.5) SECONDS INR APTT (26.9-38.3) Seconds D-Dimer, Quantitative (0-243) ng/mlDDU pCO2 23 L (35-45) mm/Hg pO2 416.0 H (80-100) mm/Hg HCO3 8.2 L* ABG pH 7.16 L* (7.35-7.45) ABG Total CO2 8.9 L ABG O2 Saturation 99.4 H (95-98) % ABG Base Excess -18.7 L ABG Potassium 4.5 (3.6-5.2) mmol/L VBG pH (7.32-7.43) VBG pCO2 (40-60) VBG HCO3 (21-28) mmol/l VBG Total CO2 (22-28) mmol.L VBG O2 Sat (Calc) (40-65) % VBG Base Excess (0.0-2.0) mmol/L VBG Potassium (3.6-5.2) mmol/L Sodium 139.0 (132-148) mmol/L Chloride 111.0 H (98-107) mmol/L Glucose 252 H (65-105) mg/dl Lactate 7.2 H* (0.7-2.1) mmol/L Mechanical Rate 14 FiO2 100.0 % Tidal Volume 400 PEEP 5 Crit Value Called To Dr kaur Crit Value Called By Blood Gas Notified Time 317 Potassium (3.6-5.0) mmol/L Carbon Dioxide (21-33) mmol/L Anion Gap (10-20) BUN (7-21) mg/dL Creatinine (0.7-1.2) mg/dl Est GFR ( Amer) Est GFR (Non-Af Amer) Random Glucose (70-110) mg/dL Calcium (8.4-10.5) mg/dL Phosphorus (2.5-4.5) mg/dL Magnesium (1.7-2.2) mg/dL Total Bilirubin (0.2-1.3) mg/dL AST (14-36) U/L ALT (7-56) U/L Alkaline Phosphatase (38-126) U/L Lactate Dehydrogenase (333-699) U/L Total Creatine Kinase (35-230) U/L CK-MB (CK-2) (0.0-3.6) ng/mL CK-MB (CK-2) % (2.5-3.0) % Troponin I ng/mL NT-Pro-B Natriuret Pep (0-450) pg/mL Total Protein (5.8-8.3) g/dL Albumin (3.0-4.8) g/dL Globulin gm/dL Albumin/Globulin Ratio (1.1-1.8) Procalcitonin (0.19-0.49) NG/ML Arterial Blood Potassium 4.5 (3.6-5.2) mmol/L Venous Blood Potassium (3.6-5.2) mmol/L Urine Color (YELLOW) Urine Appearance (CLEAR) Urine pH (4.7-8.0) Ur Specific [place] (1.005-1.035) Urine Protein (<30 mg/dL) mg/dL Urine Glucose (UA) (NEGATIVE) mg/dL Urine Ketones (NEGATIVE) mg/dL Urine Blood (NEGATIVE) Urine Nitrate (NEGATIVE) Urine Bilirubin (NEGATIVE) Urine Urobilinogen (<1 E.U./dL) E.U./dL Ur Leukocyte Esterase (NEGATIVE) [place]/uL Urine RBC (0-2) /hpf Urine WBC (0-6) /hpf Ur Epithelial Cells (0-5) /hpf Urine Bacteria (NONE) /hpf 04/29/18 04/29/18 04/29/18 Range/Units 01:58 01:58 01:45 WBC (4.5-11.0) 10^3/uL RBC (3.5-6.1) 10^6/uL Hgb (12.0-16.0) g/dL Hct (36.0-48.0) % MCV (80.0-105.0) fl MCH (25.0-35.0) pg MCHC (31.0-37.0) g/dl RDW (11.5-14.5) % Plt Count (120.0-450.0) 10^3/uL MPV (7.0-11.0) fl Neut % (Auto) (50.0-68.0) % Lymph % (Auto) (22.0-35.0) % [place] % (Auto) (1.0-6.0) % Eos % (Auto) (1.5-5.0) % Baso % (Auto) (0.0-3.0) % Lymph # (Auto) (1.2-3.4) [place] # (Auto) (0.1-0.6) Eos # (Auto) (0.0-0.7) Baso # (Auto) (0.0-2.0) K/mm3 Absolute Neuts (auto) (1.4-6.5) PT 15.8 H (9.4-12.5) SECONDS INR 1.42 APTT 60.4 H (26.9-38.3) Seconds D-Dimer, Quantitative > 5250 H (0-243) ng/mlDDU pCO2 75 H* (35-45) mm/Hg pO2 36.0 L* (80-100) mm/Hg HCO3 TEST NOT PERFORMED ABG pH < 6.80 L* (7.35-7.45) ABG Total CO2 TEST NOT PERFORMED ABG O2 Saturation 75.3 L (95-98) % ABG Base Excess TEST NOT PERFORMED ABG Potassium 4.9 (3.6-5.2) mmol/L VBG pH (7.32-7.43) VBG pCO2 (40-60) VBG HCO3 (21-28) mmol/l VBG Total CO2 (22-28) mmol.L VBG O2 Sat (Calc) (40-65) % VBG Base Excess (0.0-2.0) mmol/L VBG Potassium (3.6-5.2) mmol/L Sodium 138 140.0 (132-148) mmol/L Chloride 110 H 107.0 (98-107) mmol/L Glucose 265 H (65-105) mg/dl Lactate 10.7 H* (0.7-2.1) mmol/L Mechanical Rate FiO2 100.0 % Tidal Volume PEEP Crit Value Called To Jarrett lawrence rn 2rno Crit Value Called By [facility] Blood Gas Notified Time 207 Potassium 5.2 H (3.6-5.0) mmol/L Carbon Dioxide 13 L (21-33) mmol/L Anion Gap 20 (10-20) BUN 45 H (7-21) mg/dL Creatinine 2.6 H (0.7-1.2) mg/dl Est GFR ( Amer) 21 Est GFR (Non-Af Amer) 17 Random Glucose 266 H (70-110) mg/dL Calcium 8.2 L (8.4-10.5) mg/dL Phosphorus 6.7 H (2.5-4.5) mg/dL Magnesium 2.7 H (1.7-2.2) mg/dL Total Bilirubin 0.5 (0.2-1.3) mg/dL AST 234 H D (14-36) U/L ALT 19 (7-56) U/L Alkaline Phosphatase 120 (38-126) U/L Lactate Dehydrogenase 2404 H (333-699) U/L Total Creatine Kinase 412 H (35-230) U/L CK-MB (CK-2) 19.2 H (0.0-3.6) ng/mL CK-MB (CK-2) % 4.7 H (2.5-3.0) % Troponin I 10.50 H* D ng/mL NT-Pro-B Natriuret Pep 95283 H (0-450) pg/mL Total Protein 6.0 (5.8-8.3) g/dL Albumin 2.9 L (3.0-4.8) g/dL Globulin 3.1 gm/dL Albumin/Globulin Ratio 0.9 L (1.1-1.8) Procalcitonin (0.19-0.49) NG/ML Arterial Blood Potassium 4.9 (3.6-5.2) mmol/L Venous Blood Potassium (3.6-5.2) mmol/L Urine Color (YELLOW) Urine Appearance (CLEAR) Urine pH (4.7-8.0) Ur Specific [place] (1.005-1.035) Urine Protein (<30 mg/dL) mg/dL Urine Glucose (UA) (NEGATIVE) mg/dL Urine Ketones (NEGATIVE) mg/dL Urine Blood (NEGATIVE) Urine Nitrate (NEGATIVE) Urine Bilirubin (NEGATIVE) Urine Urobilinogen (<1 E.U./dL) E.U./dL Ur Leukocyte Esterase (NEGATIVE) [place]/uL Urine RBC (0-2) /hpf Urine WBC (0-6) /hpf Ur Epithelial Cells (0-5) /hpf Urine Bacteria (NONE) /hpf 04/28/18 Range/Units 19:36 WBC (4.5-11.0) 10^3/uL RBC (3.5-6.1) 10^6/uL Hgb (12.0-16.0) g/dL Hct (36.0-48.0) % MCV (80.0-105.0) fl MCH (25.0-35.0) pg MCHC (31.0-37.0) g/dl RDW (11.5-14.5) % Plt Count (120.0-450.0) 10^3/uL MPV (7.0-11.0) fl Neut % (Auto) (50.0-68.0) % Lymph % (Auto) (22.0-35.0) % [place] % (Auto) (1.0-6.0) % Eos % (Auto) (1.5-5.0) % Baso % (Auto) (0.0-3.0) % Lymph # (Auto) (1.2-3.4) [place] # (Auto) (0.1-0.6) Eos # (Auto) (0.0-0.7) Baso # (Auto) (0.0-2.0) K/mm3 Absolute Neuts (auto) (1.4-6.5) PT (9.4-12.5) SECONDS INR APTT 55.5 H (26.9-38.3) Seconds D-Dimer, Quantitative (0-243) ng/mlDDU pCO2 (35-45) mm/Hg pO2 (80-100) mm/Hg HCO3 ABG pH (7.35-7.45) ABG Total CO2 ABG O2 Saturation (95-98) % ABG Base Excess ABG Potassium (3.6-5.2) mmol/L VBG pH (7.32-7.43) VBG pCO2 (40-60) VBG HCO3 (21-28) mmol/l VBG Total CO2 (22-28) mmol.L VBG O2 Sat (Calc) (40-65) % VBG Base Excess (0.0-2.0) mmol/L VBG Potassium (3.6-5.2) mmol/L Sodium (132-148) mmol/L Chloride (98-107) mmol/L Glucose (65-105) mg/dl Lactate (0.7-2.1) mmol/L Mechanical Rate FiO2 % Tidal Volume PEEP Crit Value Called To Crit Value Called By Blood Gas Notified Time Potassium (3.6-5.0) mmol/L Carbon Dioxide (21-33) mmol/L Anion Gap (10-20) BUN (7-21) mg/dL Creatinine (0.7-1.2) mg/dl Est GFR ( Amer) Est GFR (Non-Af Amer) Random Glucose (70-110) mg/dL Calcium (8.4-10.5) mg/dL Phosphorus (2.5-4.5) mg/dL Magnesium (1.7-2.2) mg/dL Total Bilirubin (0.2-1.3) mg/dL AST (14-36) U/L ALT (7-56) U/L Alkaline Phosphatase (38-126) U/L Lactate Dehydrogenase (333-699) U/L Total Creatine Kinase (35-230) U/L CK-MB (CK-2) (0.0-3.6) ng/mL CK-MB (CK-2) % (2.5-3.0) % Troponin I ng/mL NT-Pro-B Natriuret Pep (0-450) pg/mL Total Protein (5.8-8.3) g/dL Albumin (3.0-4.8) g/dL Globulin gm/dL Albumin/Globulin Ratio (1.1-1.8) Procalcitonin (0.19-0.49) NG/ML Arterial Blood Potassium (3.6-5.2) mmol/L Venous Blood Potassium (3.6-5.2) mmol/L Urine Color (YELLOW) Urine Appearance (CLEAR) Urine pH (4.7-8.0) Ur Specific [place] (1.005-1.035) Urine Protein (<30 mg/dL) mg/dL Urine Glucose (UA) (NEGATIVE) mg/dL Urine Ketones (NEGATIVE) mg/dL Urine Blood (NEGATIVE) Urine Nitrate (NEGATIVE) Urine Bilirubin (NEGATIVE) Urine Urobilinogen (<1 E.U./dL) E.U./dL Ur Leukocyte Esterase (NEGATIVE) [place]/uL Urine RBC (0-2) /hpf Urine WBC (0-6) /hpf Ur Epithelial Cells (0-5) /hpf Urine Bacteria (NONE) /hpf Laboratory Results - last 24 hr 04/28/18 04/29/18 04/29/18 19:36 01:45 01:58 WBC RBC Hgb Hct MCV MCH MCHC RDW Plt Count MPV Neut % (Auto) Lymph % (Auto) [place] % (Auto) Eos % (Auto) Baso % (Auto) Lymph # (Auto) [place] # (Auto) Eos # (Auto) Baso # (Auto) Absolute Neuts (auto) PT 15.8 H INR 1.42 APTT 55.5 H 60.4 H D-Dimer, Quantitative > 5250 H pCO2 75 H* pO2 36.0 L* HCO3 TEST NOT PERFORMED ABG pH < 6.80 L* ABG Total CO2 TEST NOT PERFORMED ABG O2 Saturation 75.3 L ABG Base Excess TEST NOT PERFORMED ABG Potassium 4.9 VBG pH VBG pCO2 VBG HCO3 VBG Total CO2 VBG O2 Sat (Calc) VBG Base Excess VBG Potassium Sodium 140.0 Chloride 107.0 Glucose 265 H Lactate 10.7 H* Mechanical Rate FiO2 100.0 Tidal Volume PEEP Crit Value Called To Jarrett lawrence rn 2rno Crit Value Called By [facility] Blood Gas Notified Time 207 Potassium Carbon Dioxide Anion Gap BUN Creatinine Est GFR ( Amer) Est GFR (Non-Af Amer) Random Glucose Calcium Phosphorus Magnesium Total Bilirubin AST ALT Alkaline Phosphatase Lactate Dehydrogenase Total Creatine Kinase CK-MB (CK-2) CK-MB (CK-2) % Troponin I NT-Pro-B Natriuret Pep Total Protein Albumin Globulin Albumin/Globulin Ratio Procalcitonin Arterial Blood Potassium 4.9 Venous Blood Potassium Urine Color Urine Appearance Urine pH Ur Specific [place] Urine Protein Urine Glucose (UA) Urine Ketones Urine Blood Urine Nitrate Urine Bilirubin Urine Urobilinogen Ur Leukocyte Esterase Urine RBC Urine WBC Ur Epithelial Cells Urine Bacteria 04/29/18 04/29/18 04/29/18 01:58 01:58 03:05 WBC 33.7 H* D RBC 3.16 L Hgb 9.5 L Hct 30.2 L MCV 95.6 D MCH 30.1 MCHC 31.5 RDW 13.3 Plt Count 393 MPV 10.0 Neut % (Auto) 64.1 Lymph % (Auto) 32.1 [place] % (Auto) 3.5 Eos % (Auto) 0.1 L Baso % (Auto) 0.2 Lymph # (Auto) 10.8 H [place] # (Auto) 1.2 H Eos # (Auto) 0.0 Baso # (Auto) 0.06 Absolute Neuts (auto) 21.57 H PT INR APTT D-Dimer, Quantitative pCO2 23 L pO2 416.0 H HCO3 8.2 L* ABG pH 7.16 L* ABG Total CO2 8.9 L ABG O2 Saturation 99.4 H ABG Base Excess -18.7 L ABG Potassium 4.5 VBG pH VBG pCO2 VBG HCO3 VBG Total CO2 VBG O2 Sat (Calc) VBG Base Excess VBG Potassium Sodium 138 139.0 Chloride 110 H 111.0 H Glucose 252 H Lactate 7.2 H* Mechanical Rate 14 FiO2 100.0 Tidal Volume 400 PEEP 5 Crit Value Called To Dr kaur Crit Value Called By [facility] Blood Gas Notified Time 317 Potassium 5.2 H Carbon Dioxide 13 L Anion Gap 20 BUN 45 H Creatinine 2.6 H Est GFR ( Amer) 21 Est GFR (Non-Af Amer) 17 Random Glucose 266 H Calcium 8.2 L Phosphorus 6.7 H Magnesium 2.7 H Total Bilirubin 0.5 AST 234 H D ALT 19 Alkaline Phosphatase 120 Lactate Dehydrogenase 2404 H Total Creatine Kinase 412 H CK-MB (CK-2) 19.2 H CK-MB (CK-2) % 4.7 H Troponin I 10.50 H* D NT-Pro-B Natriuret Pep 80541 H Total Protein 6.0 Albumin 2.9 L Globulin 3.1 Albumin/Globulin Ratio 0.9 L Procalcitonin Arterial Blood Potassium 4.5 Venous Blood Potassium Urine Color Urine Appearance Urine pH Ur Specific [place] Urine Protein Urine Glucose (UA) Urine Ketones Urine Blood Urine Nitrate Urine Bilirubin Urine Urobilinogen Ur Leukocyte Esterase Urine RBC Urine WBC Ur Epithelial Cells Urine Bacteria 04/29/18 04/29/18 04/29/18 04:18 04:18 05:15 WBC 28.3 H* RBC 3.00 L Hgb 9.0 L Hct 27.6 L MCV 92.0 D MCH 30.0 MCHC 32.6 RDW 13.4 Plt Count 337 MPV 9.7 Neut % (Auto) 79.3 H Lymph % (Auto) 17.5 L [place] % (Auto) 3.0 Eos % (Auto) 0.0 L Baso % (Auto) 0.2 Lymph # (Auto) 4.9 H [place] # (Auto) 0.9 H Eos # (Auto) 0.0 Baso # (Auto) 0.05 Absolute Neuts (auto) 22.41 H PT INR APTT D-Dimer, Quantitative pCO2 pO2 HCO3 ABG pH ABG Total CO2 ABG O2 Saturation ABG Base Excess ABG Potassium VBG pH VBG pCO2 VBG HCO3 VBG Total CO2 VBG O2 Sat (Calc) VBG Base Excess VBG Potassium Sodium 137 Chloride 111 H Glucose Lactate Mechanical Rate FiO2 Tidal Volume PEEP Crit Value Called To Crit Value Called By Blood Gas Notified Time Potassium 4.8 Carbon Dioxide 13 L Anion Gap 18 BUN 48 H Creatinine 2.9 H Est GFR ( Amer) 19 Est GFR (Non-Af Amer) 15 Random Glucose 284 H Calcium 8.0 L Phosphorus Magnesium Total Bilirubin 0.6 AST 516 H D ALT 36 Alkaline Phosphatase 123 Lactate Dehydrogenase Total Creatine Kinase CK-MB (CK-2) CK-MB (CK-2) % Troponin I NT-Pro-B Natriuret Pep Total Protein 6.1 Albumin 2.9 L Globulin 3.3 Albumin/Globulin Ratio 0.9 L Procalcitonin Arterial Blood Potassium Venous Blood Potassium Urine Color Yellow Urine Appearance Sl cloudy Urine pH 5.5 Ur Specific [place] 1.025 Urine Protein Trace H Urine Glucose (UA) Negative Urine Ketones Negative Urine Blood Negative Urine Nitrate Negative Urine Bilirubin Negative Urine Urobilinogen 0.2 Ur Leukocyte Esterase Negative Urine RBC 0 - 2 Urine WBC 0 - 2 Ur Epithelial Cells 0 - 2 Urine Bacteria Mod 04/29/18 04/29/18 04/29/18 06:45 10:40 10:40 WBC RBC Hgb Hct MCV MCH MCHC RDW Plt Count MPV Neut % (Auto) Lymph % (Auto) [place] % (Auto) Eos % (Auto) Baso % (Auto) Lymph # (Auto) [place] # (Auto) Eos # (Auto) Baso # (Auto) Absolute Neuts (auto) PT INR APTT D-Dimer, Quantitative pCO2 pO2 192 H 105 H HCO3 ABG pH ABG Total CO2 ABG O2 Saturation ABG Base Excess ABG Potassium VBG pH 7.39 7.46 H VBG pCO2 30.0 L 28.0 L VBG HCO3 18.2 L 19.9 L VBG Total CO2 19.1 L 20.8 L VBG O2 Sat (Calc) 99.1 H 98.5 H VBG Base Excess -5.6 L -2.6 L VBG Potassium 4.9 4.5 Sodium 138.0 141.0 Chloride 106.0 110.0 H Glucose 352 H 320 H Lactate 3.4 H 2.0 Mechanical Rate FiO2 21.0 21.0 Tidal Volume PEEP Crit Value Called To Aislinn deluna rn [facility] Crit Value Called By Jossy Ab Blood Gas Notified Time 713 1100 Potassium Carbon Dioxide Anion Gap BUN Creatinine Est GFR ( Amer) Est GFR (Non-Af Amer) Random Glucose Calcium Phosphorus Magnesium Total Bilirubin AST ALT Alkaline Phosphatase Lactate Dehydrogenase Total Creatine Kinase CK-MB (CK-2) CK-MB (CK-2) % Troponin I NT-Pro-B Natriuret Pep Total Protein Albumin Globulin Albumin/Globulin Ratio Procalcitonin 27.27 H Arterial Blood Potassium Venous Blood Potassium 4.9 4.5 Urine Color Urine Appearance Urine pH Ur Specific [place] Urine Protein Urine Glucose (UA) Urine Ketones Urine Blood Urine Nitrate Urine Bilirubin Urine Urobilinogen Ur Leukocyte Esterase Urine RBC Urine WBC Ur Epithelial Cells Urine Bacteria 04/29/18 04/29/18 04/29/18 13:30 14:00 14:00 WBC 30.8 H* RBC 2.85 L Hgb 8.5 L Hct 25.4 L MCV 89.1 MCH 29.8 MCHC 33.5 RDW 13.3 Plt Count 320 MPV 9.9 Neut % (Auto) 79.7 H Lymph % (Auto) 18.1 L [place] % (Auto) 2.1 Eos % (Auto) 0.0 L Baso % (Auto) 0.1 Lymph # (Auto) 5.6 H [place] # (Auto) 0.6 Eos # (Auto) 0.0 Baso # (Auto) 0.02 Absolute Neuts (auto) 24.57 H PT INR APTT D-Dimer, Quantitative pCO2 30 L pO2 180.0 H HCO3 19.0 L ABG pH 7.41 ABG Total CO2 19.9 L ABG O2 Saturation 99.0 H ABG Base Excess -4.5 L ABG Potassium 3.8 VBG pH VBG pCO2 VBG HCO3 VBG Total CO2 VBG O2 Sat (Calc) VBG Base Excess VBG Potassium Sodium 142.0 141 Chloride 111.0 H 111 H Glucose 259 H Lactate 1.3 Mechanical Rate 14 FiO2 50.0 Tidal Volume 400 PEEP 5 Crit Value Called To Crit Value Called By Blood Gas Notified Time Potassium 4.0 Carbon Dioxide 23 Anion Gap 11 BUN 59 H Creatinine 3.0 H Est GFR ( Amer) 18 Est GFR (Non-Af Amer) 15 Random Glucose 253 H Calcium 7.2 L Phosphorus 4.6 H Magnesium 2.2 Total Bilirubin 0.6 AST 937 H D ALT 54 Alkaline Phosphatase 105 Lactate Dehydrogenase Total Creatine Kinase CK-MB (CK-2) CK-MB (CK-2) % Troponin I 12.60 H* NT-Pro-B Natriuret Pep Total Protein 5.6 L Albumin 2.7 L Globulin 2.9 Albumin/Globulin Ratio 0.9 L Procalcitonin Arterial Blood Potassium 3.8 Venous Blood Potassium Urine Color Urine Appearance Urine pH Ur Specific [place] Urine Protein Urine Glucose (UA) Urine Ketones Urine Blood Urine Nitrate Urine Bilirubin Urine Urobilinogen Ur Leukocyte Esterase Urine RBC Urine WBC Ur Epithelial Cells Urine Bacteria 04/29/18 14:00 WBC RBC Hgb Hct MCV MCH MCHC RDW Plt Count MPV Neut % (Auto) Lymph % (Auto) [place] % (Auto) Eos % (Auto) Baso % (Auto) Lymph # (Auto) [place] # (Auto) Eos # (Auto) Baso # (Auto) Absolute Neuts (auto) PT 18.7 H INR 1.68 APTT 58.9 H D-Dimer, Quantitative pCO2 pO2 HCO3 ABG pH ABG Total CO2 ABG O2 Saturation ABG Base Excess ABG Potassium VBG pH VBG pCO2 VBG HCO3 VBG Total CO2 VBG O2 Sat (Calc) VBG Base Excess VBG Potassium Sodium Chloride Glucose Lactate Mechanical Rate FiO2 Tidal Volume PEEP Crit Value Called To Crit Value Called By Blood Gas Notified Time Potassium Carbon Dioxide Anion Gap BUN Creatinine Est GFR ( Amer) Est GFR (Non-Af Amer) Random Glucose Calcium Phosphorus Magnesium Total Bilirubin AST ALT Alkaline Phosphatase Lactate Dehydrogenase Total Creatine Kinase CK-MB (CK-2) CK-MB (CK-2) % Troponin I NT-Pro-B Natriuret Pep Total Protein Albumin Globulin Albumin/Globulin Ratio Procalcitonin Arterial Blood Potassium Venous Blood Potassium Urine Color Urine Appearance Urine pH Ur Specific [place] Urine Protein Urine Glucose (UA) Urine Ketones Urine Blood Urine Nitrate Urine Bilirubin Urine Urobilinogen Ur Leukocyte Esterase Urine RBC Urine WBC Ur Epithelial Cells Urine Bacteria Radiology Impressions: Radiology Impressions Chest X-Ray 04/29/18 01:24 IMPRESSION: Substantial improvements in pulmonary edema. Satisfactory position of recently placed support apparatus including endotracheal tube and nasogastric tube. 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 No definite acute intracranial findings by standard MR criteria. Follow-up MRI or CT is available as clinically warranted. Concordant preliminary report from [facility], 04/29/2018 2:51 a.m.. Chest X-Ray 04/29/18 12:12 IMPRESSION: Interval right central venous line in good apparent position. Remaining tubes and catheters unchanged in position. Limited left basilar atelectasis identified. Critical Care Progress Note - Nutrition Nutrition: Nutrition Category Date Time Status NPO Diet [DIET] Diets 04/29/18 Breakfast Ordered Attending/Attestation - Attestation I have personally seen and examined this patient.: Yes I have fully participated in the care of the patient.: Yes I have reviewed all pertinent clinical information: Yes Notes (Text): 04/29/18 18:[address] Connell note
--- NOTE | 2018-04-29 10:00 | CP.PCM.CON ---
<Henry Wilkins - Last Filed: 04/29/18 13:26> History of Present Illness - History of Present Illness History of Present Illness: Infectious disease consult note: 88 F with a past medical history significant for Right ICA Stenosis s/p CEA, HTN, HLD, DM2, and Parkinson's disease Is used presents to the ED following mechanical fall. Patient was found to have an acute displaced fracture of di stal left fibula. Patient started developing elevated troponin secondary to an NSTEMI. Cardiology has been following him and started heparin drip. Last night patient had a cardiac arrest with PEA and 3 rounds of epi was administered. Patient was intubated for airway protection. Infectious disease was consulted for fever and leukocytosis. 12 point ROS limited secondary to intubation PMH: As above PSH: CEA in 2012 Family history: Unknown SH: Current smoker of pack per day: No history of alcohol or drug usage Allergies: Penicillin and sulfa drugs Review of Systems - Review of Systems Systems not reviewed;Unavailable: Intubated Past Patient History - Infectious Disease Hx of Infectious Diseases: None - Tetanus Immunizations Tetanus Immunization: Unknown - Past Social History Smoking Status: Current Some Days Smoker - CARDIAC Hx Cardiac Disorders: Yes Hx Hypertension: Yes Other/Comment: [place], Heart surgery - PULMONARY Hx Respiratory Disorders: No - NEUROLOGICAL Hx Neurological Disorder: Yes Hx Dementia: Yes Hx Parkinson's Disease: Yes Hx Transient Ischemic Attacks (TIA): Yes - HEENT Hx HEENT Problems: No - RENAL Hx Chronic Kidney Disease: Yes - ENDOCRINE/METABOLIC Hx Endocrine Disorders: Yes Hx Diabetes Mellitus Type 2: Yes - HEMATOLOGICAL/ONCOLOGICAL Hx Blood Disorders: Yes Hx Anemia: Yes Hx Cancer: Yes - INTEGUMENTARY Hx Dermatological Problems: Yes Hx Basil Cell: Yes - MUSCULOSKELETAL/RHEUMATOLOGICAL Hx Musculoskeletal Disorders: Yes Hx Arthritis: Yes Hx Falls: Yes Hx Fractures: Yes Hx Osteoporosis: Yes Hx Unsteady Gait: Yes - GASTROINTESTINAL Hx Gastrointestinal Disorders: Yes Hx Diverticulitis: Yes Hx Gastroesophageal Reflux: Yes Other/Comment: Gastric Cancer - GENITOURINARY/GYNECOLOGICAL Hx Urinary Tract Infection: Yes - PSYCHIATRIC Hx Psychophysiologic Disorder: Yes Hx Anxiety: Yes Hx Depression: Yes Hx Substance Use: No - SURGICAL HISTORY Hx Surgeries: Yes Hx Coronary Stent: Yes Hx Open Heart Surgery: Yes - ANESTHESIA Hx Anesthesia Reactions: No Hx Malignant Hyperthermia: No Meds Allergies/Adverse Reactions: Allergies Allergy/AdvReac Type Severity Reaction Status Date / Time Penicillins Allergy ANAPHYLAXIS Verified 03/26/16 16:56 Sulfa (Sulfonamide Allergy ANAPHYLAXIS Verified 03/26/16 16:56 Antibiotics) - Medications Medications: Current Medications Acetaminophen (Tylenol 325mg Tab) 650 mg PO Q6H PRN PRN Reason: Fever >100.4 F Last Admin: 04/28/18 01:29 Dose: 650 mg Albuterol/Ipratropium (Duoneb 3 Mg/0.5 Mg (3 Ml) Ud) 3 ml IH [id number] PRN PRN Reason: Shortness of Breath Last Admin: 04/28/18 22:16 Dose: 3 ml Aspirin (Aspirin Chewable) 81 mg PO DAILY [facility] Last Admin: 04/28/18 10:44 Dose: 81 mg Carbidopa/Levodopa/Entacapone (Stalevo 150) 1 tab PO TID [facility] Last Admin: 04/28/18 18:30 Dose: 1 tab Clopidogrel Bisulfate (Plavix) 75 mg PO DAILY [facility] Docusate Sodium (Colace) 100 mg PO BID [facility] Last Admin: 04/28/18 18:31 Dose: 100 mg Glyburide (Micronase) 5 mg PO 0800,1700 [facility] Last Admin: 04/29/18 08:22 Dose: 5 mg Heparin Sodium/Sodium Chloride (Heparin 28468 Units/250ml 1/2 Normal Saline) 25,000 units in 250 mls @ 7.588 mls/hr IV .Q24H STEVEN; Protocol Last Admin: 04/28/18 13:13 Dose: 12 units/kg/hr, 7.588 mls/hr Sodium Bicarbonate 100 meq/ (Sodium Chloride) 1,100 mls @ 60 mls/hr IV .[id number] [facility] Last Admin: 04/29/18 05:12 Dose: 60 mls/hr Propofol (Diprivan) 1,000 mg in 100 mls @ 1.897 mls/hr IV .Q24H PRN; Protocol PRN Reason: TITRATE PER MD ORDER Last Titration: 04/29/18 03:30 Dose: 0 mcg/kg/min, 0 mls/hr Aztreonam (Azactam 1 Gm) 100 mls @ 100 mls/hr IVPB Q8 STEVEN; Protocol Stop: 05/06/18 09:46 Vancomycin HCl (Vancomycin 1gm) 1 gm in 250 mls @ 167 mls/hr IVPB STAT STA; Protocol Stop: 04/29/18 11:11 Insulin Human Regular (Humulin R Med) 0 units SC Q6H [facility]; Protocol Last Admin: 04/29/18 06:54 Dose: 2 units Lisinopril (Zestril) 10 mg PO DAILY [facility] Last Admin: 04/28/18 10:44 Dose: 10 mg Metoprolol Tartrate (Lopressor) 25 mg PO BID [facility] Last Admin: 04/28/18 18:35 Dose: 25 mg Morphine Sulfate (Morphine) 0.5 mg IVP Q4 PRN PRN Reason: Pain, moderate (4-7) Last Admin: 04/28/18 01:27 Dose: 0.5 mg Nicotine (Nicoderm Cq) 1 patch TD DAILY [facility] Pantoprazole Sodium (Protonix Inj) 40 mg IVP DAILY [facility] Sitagliptin Phosphate (Januvia) 50 mg PO DAILY [facility] Last Admin: 04/28/18 10:45 Dose: 50 mg Zolpidem Tartrate (Ambien) 5 mg PO HS PRN; Protocol PRN Reason: Insomnia Last Admin: 04/28/18 22:12 Dose: 5 mg Physical Exam - Constitutional Appears: No Acute Distress - Head Exam Head Exam: ATRAUMATIC, NORMOCEPHALIC - Eye Exam Eye Exam: PERRL (sluggish pupils) - ENT Exam ENT Exam: Mucous Membranes Moist - Respiratory Exam Respiratory Exam: Clear to Auscultation Bilateral. absent: Rales, Wheezes - Cardiovascular Exam Cardiovascular Exam: REGULAR RHYTHM, +S1, +S2 - GI/Abdominal Exam GI & Abdominal Exam: Soft. absent: Distended, Tenderness - Extremities Exam Extremities exam: Negative for: calf tenderness, pedal edema - Psychiatric Exam Psychiatric exam: Normal Mood - Skin Skin Exam: Dry, Warm Results - Vital Signs Recent Vital Signs: Last Vital Signs Temp 101.3 F H 04/29/18 06:00 Pulse 96 H 04/29/18 07:56 Resp 30 H 04/29/18 07:14 BP 103/41 L 04/29/18 07:30 Pulse Ox 99 04/29/18 07:50 - Labs Result Diagrams: 04/29/18 04:18 04/29/18 04:18 Labs: Laboratory Results - last 24 hr 04/28/18 04/28/1804/28/19 01:40 13:45 19:36 WBC RBC Hgb Hct MCV MCH MCHC RDW Plt Count MPV Neut % (Auto) Lymph % (Auto) [place] % (Auto) Eos % (Auto) Baso % (Auto) Lymph # (Auto) [place] # (Auto) Eos # (Auto) Baso # (Auto) Absolute Neuts (auto) PT INR APTT 55.5 H D-Dimer, Quantitative pCO2 pO2 HCO3 ABG pH ABG Total CO2 ABG O2 Saturation ABG Base Excess ABG Potassium VBG pH VBG pCO2 VBG HCO3 VBG Total CO2 VBG O2 Sat (Calc) VBG Base Excess VBG Potassium Sodium Chloride Glucose Lactate Mechanical Rate FiO2 Tidal Volume PEEP Crit Value Called To Crit Value Called By Blood Gas Notified Time Potassium Carbon Dioxide Anion Gap BUN Creatinine Est GFR ( Amer) Est GFR (Non-Af Amer) Random Glucose Calcium Phosphorus Magnesium Total Bilirubin AST ALT Alkaline Phosphatase Lactate Dehydrogenase Total Creatine Kinase CK-MB (CK-2) CK-MB (CK-2) % Troponin I 4.49 H* D NT-Pro-B Natriuret Pep Total Protein Albumin Globulin Albumin/Globulin Ratio Procalcitonin 0.62 H Arterial Blood Potassium Venous Blood Potassium Urine Color Urine Appearance Urine pH Ur Specific Crary Urine Protein Urine Glucose (UA) Urine Ketones Urine Blood Urine Nitrate Urine Bilirubin Urine Urobilinogen Ur Leukocyte Esterase Urine RBC Urine WBC Ur Epithelial Cells Urine Bacteria 04/29/18 04/29/18 04/29/18 01:45 01:58 01:58 WBC RBC Hgb Hct MCV MCH MCHC RDW Plt Count MPV Neut % (Auto) Lymph % (Auto) [place] % (Auto) Eos % (Auto) Baso % (Auto) Lymph # (Auto) [place] # (Auto) Eos # (Auto) Baso # (Auto) Absolute Neuts (auto) PT 15.8 H INR 1.42 APTT 60.4 H D-Dimer, Quantitative > 5250 H pCO2 75 H* pO2 36.0 L* HCO3 TEST NOT PERFORMED ABG pH < 6.80 L* ABG Total CO2 TEST NOT PERFORMED ABG O2 Saturation 75.3 L ABG Base Excess TEST NOT PERFORMED ABG Potassium 4.9 VBG pH VBG pCO2 VBG HCO3 VBG Total CO2 VBG O2 Sat (Calc) VBG Base Excess VBG Potassium Sodium 140.0 138 Chloride 107.0 110 H Glucose 265 H Lactate 10.7 H* Mechanical Rate FiO2 100.0 Tidal Volume PEEP Crit Value Called To Jarrett lawrence rn 2rno Crit Value Called By Agustinm Blood Gas Notified Time 207 Potassium 5.2 H Carbon Dioxide 13 L Anion Gap 20 BUN 45 H Creatinine 2.6 H Est GFR ( Amer) 21 Est GFR (Non-Af Amer) 17 Random Glucose 266 H Calcium 8.2 L Phosphorus 6.7 H Magnesium 2.7 H Total Bilirubin 0.5 AST 234 H D ALT 19 Alkaline Phosphatase 120 Lactate Dehydrogenase 2404 H Total Creatine Kinase 412 H CK-MB (CK-2) 19.2 H CK-MB (CK-2) % 4.7 H Troponin I 10.50 H* D NT-Pro-B Natriuret Pep 33802 H Total Protein 6.0 Albumin 2.9 L Globulin 3.1 Albumin/Globulin Ratio 0.9 L Procalcitonin Arterial Blood Potassium 4.9 Venous Blood Potassium Urine Color Urine Appearance Urine pH Ur Specific [place] Urine Protein Urine Glucose (UA) Urine Ketones Urine Blood Urine Nitrate Urine Bilirubin Urine Urobilinogen Ur Leukocyte Esterase Urine RBC Urine WBC Ur Epithelial Cells Urine Bacteria 04/29/18 04/29/18 04/29/18 01:58 03:05 04:18 WBC 33.7 H* D 28.3 H* RBC 3.16 L 3.00 L Hgb 9.5 L 9.0 L Hct 30.2 L 27.6 L MCV 95.6 D 92.0 D MCH 30.1 30.0 MCHC 31.5 32.6 RDW 13.3 13.4 Plt Count 393 337 MPV 10.0 9.7 Neut % (Auto) 64.1 79.3 H Lymph % (Auto) 32.1 17.5 L [place] % (Auto) 3.5 3.0 Eos % (Auto) 0.1 L 0.0 L Baso % (Auto) 0.2 0.2 Lymph # (Auto) 10.8 H 4.9 H [place] # (Auto) 1.2 H 0.9 H Eos # (Auto) 0.0 0.0 Baso # (Auto) 0.06 0.05 Absolute Neuts (auto) 21.57 H 22.41 H PT INR APTT D-Dimer, Quantitative pCO2 23 L pO2 416.0 H HCO3 8.2 L* ABG pH 7.16 L* ABG Total CO2 8.9 L ABG O2 Saturation 99.4 H ABG Base Excess -18.7 L ABG Potassium 4.5 VBG pH VBG pCO2 VBG HCO3 VBG Total CO2 VBG O2 Sat (Calc) VBG Base Excess VBG Potassium Sodium 139.0 Chloride 111.0 H Glucose 252 H Lactate 7.2 H* Mechanical Rate 14 FiO2 100.0 Tidal Volume 400 PEEP 5 Crit Value Called To Dr kaur Crit Value Called By Clive Blood Gas Notified Time 317 Potassium Carbon Dioxide Anion Gap BUN Creatinine Est GFR ( Amer) Est GFR (Non-Af Amer) Random Glucose Calcium Phosphorus Magnesium Total Bilirubin AST ALT Alkaline Phosphatase Lactate Dehydrogenase Total Creatine Kinase CK-MB (CK-2) CK-MB (CK-2) % Troponin I NT-Pro-B Natriuret Pep Total Protein Albumin Globulin Albumin/Globulin Ratio Procalcitonin Arterial Blood Potassium 4.5 Venous Blood Potassium Urine Color Urine Appearance Urine pH Ur Specific [place] Urine Protein Urine Glucose (UA) Urine Ketones Urine Blood Urine Nitrate Urine Bilirubin Urine Urobilinogen Ur Leukocyte Esterase Urine RBC Urine WBC Ur Epithelial Cells Urine Bacteria 04/29/18 04/29/18 04/29/18 04:18 05:15 06:45 WBC RBC Hgb Hct MCV MCH MCHC RDW Plt Count MPV Neut % (Auto) Lymph % (Auto) [place] % (Auto) Eos % (Auto) Baso % (Auto) Lymph # (Auto) [place] # (Auto) Eos # (Auto) Baso # (Auto) Absolute Neuts (auto) PT INR APTT D-Dimer, Quantitative pCO2 pO2 192 H HCO3 ABG pH ABG Total CO2 ABG O2 Saturation ABG Base Excess ABG Potassium VBG pH 7.39 VBG pCO2 30.0 L VBG HCO3 18.2 L VBG Total CO2 19.1 L VBG O2 Sat (Calc) 99.1 H VBG Base Excess -5.6 L VBG Potassium 4.9 Sodium 137 138.0 Chloride 111 H 106.0 Glucose 352 H Lactate 3.4 H Mechanical Rate FiO2 21.0 Tidal Volume PEEP Crit Value Called 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 Crit Value Called By Jossy Blood Gas Notified Time 713 Potassium 4.8 Carbon Dioxide 13 L Anion Gap 18 BUN 48 H Creatinine 2.9 H Est GFR ( Amer) 19 Est GFR (Non-Af Amer) 15 Random Glucose 284 H Calcium 8.0 L Phosphorus Magnesium Total Bilirubin 0.6 AST 516 H D ALT 36 Alkaline Phosphatase 123 Lactate Dehydrogenase Total Creatine Kinase CK-MB (CK-2) CK-MB (CK-2) % Troponin I NT-Pro-B Natriuret Pep Total Protein 6.1 Albumin 2.9 L Globulin 3.3 Albumin/Globulin Ratio 0.9 L Procalcitonin Arterial Blood Potassium Venous Blood Potassium 4.9 Urine Color Yellow Urine Appearance Sl cloudy Urine pH 5.5 Ur Specific [place] 1.025 Urine Protein Trace H Urine Glucose (UA) Negative Urine Ketones Negative Urine Blood Negative Urine Nitrate Negative Urine Bilirubin Negative Urine Urobilinogen 0.2 Ur Leukocyte Esterase Negative Urine RBC 0 - 2 Urine WBC 0 - 2 Ur Epithelial Cells 0 - 2 Urine Bacteria Mod Assessment & Plan - Assessment and Plan (Free Text) Assessment: 88 F with a past medical history significant for Right ICA Stenosis s/p CEA, HTN, HLD, DM2, and Parkinson's disease Is used presents to the ED following mechanical fall with acute displaced fracture of distal left fibula. Found to haveNSTEMI started heparin drip. s/p cardiac arrest with PEA and 3 rounds of epi was administered. Patient was intubated for airway protection. Infectious disease was consulted for fever and leukocytosis. - Patient with leukocytosis of 28.3 - Lactate trending down to 3.4 this morning - Continue with Vanco and started on Aztreonam; D/c Cefepime as allergic to PCN - Follow-up septic workup - UA positive however possible contaminant - Continue to monitor for any changes Case and plan was reviewed and discussed with Dr. Becker. <Hammad Becker - Last Filed: 04/29/18 16:31> Meds - Medications Medications: Current Medications Acetaminophen (Tylenol 325mg Tab) 650 mg PO Q6H PRN PRN Reason: Fever >100.4 F Last Admin: 04/28/18 01:29 Dose: 650 mg Albuterol/Ipratropium (Duoneb 3 Mg/0.5 Mg (3 Ml) Ud) 3 ml IH [id number] PRN PRN Reason: Shortness of Breath Last Admin: 04/29/18 14:06 Dose: 3 ml Aspirin (Aspirin Chewable) 81 mg PO DAILY [facility] Last Admin: 04/29/18 10:33 Dose: 81 mg Carbidopa/Levodopa/Entacapone (Stalevo 150) 1 tab PO TID [facility] Last Admin: 04/29/18 14:14 Dose: 1 tab Clopidogrel Bisulfate (Plavix) 75 mg PO DAILY [facility] Last Admin: 04/29/18 10:33 Dose: 75 mg Dextrose (Dextrose 50% Inj) 0 ml IV STAT PRN; Protocol PRN Reason: Hypoglycemia Protocol Docusate Sodium (Colace) 100 mg PO BID [facility] Last Admin: 04/29/18 10:33 Dose: 100 mg Glyburide (Micronase) 5 mg PO 0800,1700 [facility] Last Admin: 04/29/18 08:22 Dose: 5 mg Hydrocortisone Sodium Succinate (Solu-Cortef) 50 mg IVP Q6H [facility] Last Admin: 04/29/18 14:32 Dose: 50 mg Heparin Sodium/Sodium Chloride (Heparin 02246 Units/250ml 1/2 Normal Saline) 25,000 units in 250 mls @ 7.588 mls/hr IV .Q24H [facility]; Protocol Last Admin: 04/28/18 13:13 Dose: 12 units/kg/hr, 7.588 mls/hr Sodium Bicarbonate 100 meq/ (Sodium Chloride) 1,100 mls @ 60 mls/hr IV .[id number] [facility] Last Admin: 04/29/18 05:12 Dose: 60 mls/hr Propofol (Diprivan) 1,000 mg in 100 mls @ 1.897 mls/hr IV .Q24H PRN; Protocol PRN Reason: TITRATE PER MD ORDER Last Titration: 04/29/18 03:30 Dose: 0 mcg/kg/min, 0 mls/hr Aztreonam (Azactam 1 Gm) 100 mls @ 100 mls/hr IVPB Q8 [facility]; Protocol Stop: 05/06/18 09:46 Last Admin: 04/29/18 14:22 Dose: 100 mls/hr Dobutamine HCl/Dextrose (Dobutamine/Dextrose 5% 500mg/250ml) 500 mg in 250 mls @ 4.742 mls/hr IV .Q24H PRN; Protocol PRN Reason: TITRATE PER PROTOCOL Last Admin: 04/29/18 14:14 Dose: 2.5 mcg/kg/min, 4.742 mls/hr NOREPINEPHRINE BIT/0.9 % NACL (Levophed 4 Mg/ 250 Ml Ns Premixed) 4 mg in 250 mls @ 15 mls/hr IV .[id number] PRN; Protocol PRN Reason: TITRATE PER MD ORDER Last Titration: 04/29/18 13:24 Dose: 8 mcg/min, 30 mls/hr Fentanyl Citrate (Fentanyl Citrate/Sodium Chloride 1 Mg/100 Ml) 1,000 mcg in 100 mls @ 7.5 mls/hr IV .[id number] PRN; Protocol PRN Reason: TITRATE PER MD ORDER Last Titration: 04/29/18 15:03 Dose: Infused Dextrose (Dextrose 5% In Water 1000 Ml) 1,000 mls @ 0 mls/hr IV .Q0M PRN; Protocol PRN Reason: Hypoglycemia Protocol Vasopressin 20 units/ Sodium (Chloride) 101 mls @ 9.09 mls/hr IV .Q11H7M [facility]EVEN; Protocol Last Admin: 04/29/18 13:17 Dose: 9.09 mls/hr Sodium Chloride (Sodium Chloride 0.9%) 1,000 mls @ 125 mls/hr IV .Q8H STA Stop: 04/29/18 21:08 Last Admin: 04/29/18 14:15 Dose: 125 mls/hr Insulin Human Lispro (Humalog Med) 0 units SC Q6H [facility]; Protocol Last Admin: 04/29/18 13:15 Dose: 5 u Insulin Human Regular (Humulin R Med) 0 units SC Q6H [facility]; Protocol Last Admin: 04/29/18 06:54 Dose: 2 units Lisinopril (Zestril) 10 mg PO DAILY [facility] Last Admin: 04/29/18 10:25 Dose: Not Given Metoprolol Tartrate (Lopressor) 25 mg PO BID [facility] Last Admin: 04/29/18 10:25 Dose: Not Given Midazolam HCl (Versed Inj) 5 mg IVP Q5H PRN PRN Reason: Agitation Morphine Sulfate (Morphine) 0.5 mg IVP Q4 PRN PRN Reason: Pain, moderate (4-7) Last Admin: 04/28/18 01:27 Dose: 0.5 mg Nicotine (Nicoderm Cq) 1 patch TD DAILY [facility] Last Admin: 04/29/18 10:35 Dose: 1 patch Pantoprazole Sodium (Protonix Inj) 40 mg IVP DAILY [facility] Last Admin: 04/29/18 10:36 Dose: 40 mg Sitagliptin Phosphate (Januvia) 50 mg PO DAILY [facility] Last Admin: 04/29/18 10:36 Dose: 50 mg Zolpidem Tartrate (Ambien) 5 mg PO HS PRN; Protocol PRN Reason: Insomnia Last Admin: 04/28/18 22:12 Dose: 5 mg Results - Vital Signs Recent Vital Signs: Last Vital Signs Temp 101.3 F H 04/29/18 06:00 Pulse 86 04/29/18 14:14 Resp 30 H 04/29/18 07:14 BP 125/66 04/29/18 14:14 Pulse Ox 99 04/29/18 07:50 - Labs Result Diagrams: 04/29/18 14:00 04/29/18 14:00 Labs: Laboratory Results - last 24 hr 04/28/18 04/29/18 04/29/18 19:36 01:45 01:58 WBC RBC Hgb Hct MCV MCH MCHC RDW Plt Count MPV Neut % (Auto) Lymph % (Auto) [place] % (Auto) Eos % (Auto) Baso % (Auto) Lymph # (Auto) [place] # (Auto) Eos # (Auto) Baso # (Auto) Absolute Neuts (auto) PT 15.8 H INR 1.42 APTT 55.5 H 60.4 H D-Dimer, Quantitative > 5250 H pCO2 75 H* pO2 36.0 L* HCO3 TEST NOT PERFORMED ABG pH < 6.80 L* ABG Total CO2 TEST NOT PERFORMED ABG O2 Saturation 75.3 L ABG Base Excess TEST NOT PERFORMED ABG Potassium 4.9 VBG pH VBG pCO2 VBG HCO3 VBG Total CO2 VBG O2 Sat (Calc) VBG Base Excess VBG Potassium Sodium 140.0 Chloride 107.0 Glucose 265 H Lactate 10.7 H* Mechanical Rate FiO2 100.0 Tidal Volume PEEP Crit Value Called To Jarrett lawrence rn 2rno Crit Value Called By [facility] Blood Gas Notified Time 207 Potassium Carbon Dioxide Anion Gap BUN Creatinine Est GFR ( Amer) Est GFR (Non-Af Amer) Random Glucose Calcium Phosphorus Magnesium Total Bilirubin AST ALT Alkaline Phosphatase Lactate Dehydrogenase Total Creatine Kinase CK-MB (CK-2) CK-MB (CK-2) % Troponin I NT-Pro-B Natriuret Pep Total Protein Albumin Globulin Albumin/Globulin Ratio Arterial Blood Potassium 4.9 Venous Blood Potassium Urine Color Urine Appearance Urine pH Ur Specific [place] Urine Protein Urine Glucose (UA) Urine Ketones Urine Blood Urine Nitrate Urine Bilirubin Urine Urobilinogen Ur Leukocyte Esterase Urine RBC Urine WBC Ur Epithelial Cells Urine Bacteria 04/29/18 04/29/18 04/29/18 01:58 01:58 03:05 WBC 33.7 H* D RBC 3.16 L Hgb 9.5 L Hct 30.2 L MCV 95.6 D MCH 30.1 MCHC 31.5 RDW 13.3 Plt Count 393 MPV 10.0 Neut % (Auto) 64.1 Lymph % (Auto) 32.1 [place] % (Auto) 3.5 Eos % (Auto) 0.1 L Baso % (Auto) 0.2 Lymph # (Auto) 10.8 H [place] # (Auto) 1.2 H Eos # (Auto) 0.0 Baso # (Auto) 0.06 Absolute Neuts (auto) 21.57 H PT INR APTT D-Dimer, Quantitative pCO2 23 L pO2 416.0 H HCO3 8.2 L* ABG pH 7.16 L* ABG Total CO2 8.9 L ABG O2 Saturation 99.4 H ABG Base Excess -18.7 L ABG Potassium 4.5 VBG pH VBG pCO2 VBG HCO3 VBG Total CO2 VBG O2 Sat (Calc) VBG Base Excess VBG Potassium Sodium 138 139.0 Chloride 110 H 111.0 H Glucose 252 H Lactate 7.2 H* Mechanical Rate 14 FiO2 100.0 Tidal Volume 400 PEEP 5 Crit Value Called To Dr kaur Crit Value Called By Clive Blood Gas Notified Time 317 Potassium 5.2 H Carbon Dioxide 13 L Anion Gap 20 BUN 45 H Creatinine 2.6 H Est GFR ( Amer) 21 Est GFR (Non-Af Amer) 17 Random Glucose 266 H Calcium 8.2 L Phosphorus 6.7 H Magnesium 2.7 H Total Bilirubin 0.5 AST 234 H D ALT 19 Alkaline Phosphatase 120 Lactate Dehydrogenase 2404 H Total Creatine Kinase 412 H CK-MB (CK-2) 19.2 H CK-MB (CK-2) % 4.7 H Troponin I 10.50 H* D NT-Pro-B Natriuret Pep 90407 H Total Protein 6.0 Albumin 2.9 L Globulin 3.1 Albumin/Globulin Ratio 0.9 L Arterial Blood Potassium 4.5 Venous Blood Potassium Urine Color Urine Appearance Urine pH Ur Specific [place] Urine Protein Urine Glucose (UA) Urine Ketones Urine Blood Urine Nitrate Urine Bilirubin Urine Urobilinogen Ur Leukocyte Esterase Urine RBC Urine WBC Ur Epithelial Cells Urine Bacteria 04/29/18 04/29/18 04/29/18 04:18 04:18 05:15 WBC 28.3 H* RBC 3.00 L Hgb 9.0 L Hct 27.6 L MCV 92.0 D MCH 30.0 MCHC 32.6 RDW 13.4 Plt Count 337 MPV 9.7 Neut % (Auto) 79.3 H Lymph % (Auto) 17.5 L [place] % (Auto) 3.0 Eos % (Auto) 0.0 L Baso % (Auto) 0.2 Lymph # (Auto) 4.9 H [place] # (Auto) 0.9 H Eos # (Auto) 0.0 Baso # (Auto) 0.05 Absolute Neuts (auto) 22.41 H PT INR APTT D-Dimer, Quantitative pCO2 pO2 HCO3 ABG pH ABG Total CO2 ABG O2 Saturation ABG Base Excess ABG Potassium VBG pH VBG pCO2 VBG HCO3 VBG Total CO2 VBG O2 Sat (Calc) VBG Base Excess VBG Potassium Sodium 137 Chloride 111 H Glucose Lactate Mechanical Rate FiO2 Tidal Volume PEEP Crit Value Called To Crit Value Called By Blood Gas Notified Time Potassium 4.8 Carbon Dioxide 13 L Anion Gap 18 BUN 48 H Creatinine 2.9 H Est GFR ( Amer) 19 Est GFR (Non-Af Amer) 15 Random Glucose 284 H Calcium 8.0 L Phosphorus Magnesium Total Bilirubin 0.6 AST 516 H D ALT 36 Alkaline Phosphatase 123 Lactate Dehydrogenase Total Creatine Kinase CK-MB (CK-2) CK-MB (CK-2) % Troponin I NT-Pro-B Natriuret Pep Total Protein 6.1 Albumin 2.9 L Globulin 3.3 Albumin/Globulin Ratio 0.9 L Arterial Blood Potassium Venous Blood Potassium Urine Color Yellow Urine Appearance Sl cloudy Urine pH 5.5 Ur Specific [place] 1.025 Urine Protein Trace H Urine Glucose (UA) Negative Urine Ketones Negative Urine Blood Negative Urine Nitrate Negative Urine Bilirubin Negative Urine Urobilinogen 0.2 Ur Leukocyte Esterase Negative Urine RBC 0 - 2 Urine WBC 0 - 2 Ur Epithelial Cells 0 - 2 Urine Bacteria Mod 04/29/18 04/29/18 04/29/18 06:45 10:40 13:30 WBC RBC Hgb Hct MCV MCH MCHC RDW Plt Count MPV Neut % (Auto) Lymph % (Auto) [place] % (Auto) Eos % (Auto) Baso % (Auto) Lymph # (Auto) [place] # (Auto) Eos # (Auto) Baso # (Auto) Absolute Neuts (auto) PT INR APTT D-Dimer, Quantitative pCO2 30 L pO2 192 H 105 H 180.0 H HCO3 19.0 L ABG pH 7.41 ABG Total CO2 19.9 L ABG O2 Saturation 99.0 H ABG Base Excess -4.5 L ABG Potassium 3.8 VBG pH 7.39 7.46 H VBG pCO2 30.0 L 28.0 L VBG HCO3 18.2 L 19.9 L VBG Total CO2 19.1 L 20.8 L VBG O2 Sat (Calc) 99.1 H 98.5 H VBG Base Excess -5.6 L -2.6 L VBG Potassium 4.9 4.5 Sodium 138.0 141.0 142.0 Chloride 106.0 110.0 H 111.0 H Glucose 352 H 320 H 259 H Lactate 3.4 H 2.0 1.3 Mechanical Rate 14 FiO2 21.0 21.0 50.0 Tidal Volume 400 PEEP 5 Crit Value Called To Aislinn deluna rn [facility] Crit Value Called By Jossy Ab Blood Gas Notified Time 148 1100 Potassium Carbon Dioxide Anion Gap BUN Creatinine Est GFR ( Amer) Est GFR (Non-Af Amer) Random Glucose Calcium Phosphorus Magnesium Total Bilirubin AST ALT Alkaline Phosphatase Lactate Dehydrogenase Total Creatine Kinase CK-MB (CK-2) CK-MB (CK-2) % Troponin I NT-Pro-B Natriuret Pep Total Protein Albumin Globulin Albumin/Globulin Ratio Arterial Blood Potassium 3.8 Venous Blood Potassium 4.9 4.5 Urine Color Urine Appearance Urine pH Ur Specific [place]ary Urine Protein Urine Glucose (UA) Urine Ketones Urine Blood Urine Nitrate Urine Bilirubin Urine Urobilinogen Ur Leukocyte Esterase Urine RBC Urine WBC Ur Epithelial Cells Urine Bacteria 04/29/18 04/29/18 04/29/18 14:00 14:00 14:00 WBC 30.8 H* RBC 2.85 L Hgb 8.5 L Hct 25.4 L MCV 89.1 MCH 29.8 MCHC 33.5 RDW 13.3 Plt Count 320 MPV 9.9 Neut % (Auto) 79.7 H Lymph % (Auto) 18.1 L [place] % (Auto) 2.1 Eos % (Auto) 0.0 L Baso % (Auto) 0.1 Lymph # (Auto) 5.6 H [place] # (Auto) 0.6 Eos # (Auto) 0.0 Baso # (Auto) 0.02 Absolute Neuts (auto) 24.57 H PT 18.7 H INR 1.68 APTT 58.9 H D-Dimer, Quantitative pCO2 pO2 HCO3 ABG pH ABG Total CO2 ABG O2 Saturation ABG Base Excess ABG Potassium VBG pH VBG pCO2 VBG HCO3 VBG Total CO2 VBG O2 Sat (Calc) VBG Base Excess VBG Potassium Sodium 141 Chloride 111 H Glucose Lactate Mechanical Rate FiO2 Tidal Volume PEEP Crit Value Called To Crit Value Called By Blood Gas Notified Time Potassium 4.0 Carbon Dioxide 23 Anion Gap 11 BUN 59 H Creatinine 3.0 H Est GFR ( Amer) 18 Est GFR (Non-Af Amer) 15 Random Glucose 253 H Calcium 7.2 L Phosphorus 4.6 H Magnesium 2.2 Total Bilirubin 0.6 AST 937 H D ALT 54 Alkaline Phosphatase 105 Lactate Dehydrogenase Total Creatine Kinase CK-MB (CK-2) CK-MB (CK-2) % Troponin I 12.60 H* NT-Pro-B Natriuret Pep Total Protein 5.6 L Albumin 2.7 L Globulin 2.9 Albumin/Globulin Ratio 0.9 L Arterial Blood Potassium Venous Blood Potassium Urine Color Urine Appearance Urine pH Ur Specific Crary Urine Protein Urine Glucose (UA) Urine Ketones Urine Blood Urine Nitrate Urine Bilirubin Urine Urobilinogen Ur Leukocyte Esterase Urine RBC Urine WBC Ur Epithelial Cells Urine Bacteria Assessment & Plan - Assessment and Plan (Free Text) Assessment: Infectious diseases Attending Physician Attestation Patient seen and examined, discussed with medical coding specialist. I have reviewed the patient's history of present illness, past medical, social, personal and family histories, pertinent physical exam findings, course so far in this hospital admission, pertinent laboratory and imaging results. I agree with the above findings, assessment and plan. In addition, gave loading doses of IV Vancomycin and started Aztreonam for SIRS with fevers, VDRF, R/O sepsis in this patient S/P cardiac arrest, with left leg fracture. Follow up blood, urine cx, check CXR and will monitor clinically.
[2018-04-29] MEDS: Aztreonam 1 Gm in NS 100mL 100 ML IVPB SCH ×3 (10:32→21:43)
[2018-04-29] MEDS: Carbidopa/Levodopa/Entacapone 37.5mg-150mg-200mg PO SCH ×3 (10:33→17:04)
[2018-04-29 10:55] LABS: VENOUS BLOOD GAS BASE EXCESS -2.6 mmol/L (0.0-2.0); VENOUS BLOOD GAS PO2 105 mm/Hg (30-55); VENOUS BLOOD PH 7.46 (7.32-7.43)
[2018-04-29] MEDS ORDERED: Midazolam 2 MG/2 ML VIAL IVP ONE ×2 (11:11→11:43)
--- NOTE | 2018-04-29 12:15 | PCM.PROC ---
<Sandee Huang - Last Filed: 04/29/18 12:13> Procedures Attestation:: I certify that I have explained the specified Operation(s) or Procedure(s), risks, benefits and reasonable alternatives to the Patient and/or other person responsible. The opportunity was given to ask questions and all questions answered - Central Line Placement Right Internal Jugular Triple Lumen Catheter Aseptic technique was employed throughout the procedure: Hand Hygiene done prior to procedure CVP Time Out Performed: Yes Pt. Placed on Pulse Ox Monitor: Yes Central Line Prep: Chlorhexidine-Alcohol Combination Local Anesthesia Used: Lidocaine 1% Amount of Anesthesia Used (mls): 2 Ultrasound Used for Placement: Yes Central Line Lumen Inserted: triple Central Line Length: 20 cm Post Procedure: Sutured in Place Secured by: Suture Post procedure dressing: Gauze Post Procedure X-Ray: Yes Patient Tolerated Procedure: Well Immediate Complications: None <Yonny Connell - Last Filed: 04/29/18 12:24> Attending/Attestation - Attestation I have personally seen and examined this patient.: Yes I have fully participated in the care of the patient.: Yes I have reviewed all pertinent clinical information, including history, physical exam and plan: Yes Notes (Text): 04/29/18 12:22 After obtaining informed consent, operational area was sterilized, TO performed. Maximum barrier precautions used. RIJ cannulated by sterile Seldinger technique under ultrasound guidance. hemostasus achieved, guidewire removed, sterile dressings are applied. patient tolerated procedure well. cxr-pending. EBL
[2018-04-29] MEDS ORDERED: DOBUTamine 500mg/250ml D5W 500 MG/250 ML BAG IV PRN (12:26)
[2018-04-29] MEDS ORDERED: Midazolam 2 MG/2 ML VIAL IVP PRN (12:27)
[2018-04-29] MEDS ORDERED: Vasopressin 20 UNITS in Dextrose 5% In Water 100 ML IV SCH (12:30)
[2018-04-29] MEDS ORDERED: Dextrose 50% SYRINGE Inj (50 ml) IV PRN (12:32)
--- NOTE | 2018-04-29 12:50 | PN ---
SUBJECTIVE: The patient was seen and examined at bedside in the CCU. She was transferred to the CCU s/p PEA after 10 minutes of ACLS protocol with return of spontaneous circulation. This morning she remains intubated but hemodynamically stable. OBJECTIVE: VITAL SIGNS: Temperature 101.5, pulse 96, blood pressure 103/41, respiratory rate 20, oxygen saturation 99% on 50% FiO2. GENERAL: Intubated. HEENT: PERRL, EOMI. No scleral icterus. Conjunctival pallor is noted. ETT in place. OGT in place. NECK: No JVD. LUNGS: Coarse anterior breath sounds with scattered rhonchi. CARDIOVASCULAR: Regular rate and rhythm. Normal S1, S2. Grade II/ KERMIT to LLSB. ABDOMEN: Normoactive bowel sounds. Soft, nondistended. EXTREMITIES: Left ankle with River wrapping in place and ecchymosis noted. NEUROLOGIC: Somnolent, but arousable. Moving all extremities. LABORATORY DATA: WBC 28 with 79% neutrophils, hemoglobin 9, hematocrit 28, platelets 337. Sodium 137, potassium 4.8, chloride 111, bicarb 13, BUN 48, creatinine 2.9, glucose 284. AST 516, ALT 36. Troponin 10.5. BNP 53,800. ASSESSMENT: The patient is an 88-year-old woman with a past medical history of Parkinson disease with recurrent falls who was initially [facility] s/p mechanical fall with resultant left ankle fracture whose hospital course was complicated by NSTEMI with subsequent PEA arrest and was subsequently transferred to the CCU for continued care. PLAN: 1. PEA arrest. The patient remains intubated in the CCU. Continue with care as per CCU team. 2. NSTEMI. Input from Dr. Page noted. The patient remains on Heparin drip, Aspirin 81 mg p.o. daily, Plavix 75 mg p.o. daily and Metoprolol 25 mg p.o. b.i.d. Continue with care as per Dr. Page. 3. Acute systolic heart failure. Labs demonstrate a markedly elevated BNP of 53,800. TTE reviewed and demonstrates a moderately impaired systolic function. As above, input from Dr. Page noted. Continue with care as per Dr. Page. 4. Acute fracture of the distal left fibula. Input from Dr. Hendrix noted and no need for acute surgical intervention. Continue with conservative medical management. 5. Severe sepsis, likely secondary to UTI. ID evaluation with Dr. Hewitt pending. We will continue to monitor for fever and leukocytosis and await culture reports. 6. Hypertension. Continue to monitor hemodynamics and adjust medications as needed. 7. Parkinson disease. Continue Stalevo 150 mg p.o. t.i.d. 8. Acute kidney injury, etiology likely secondary to ATN in the setting of hypotension secondary to PEA. Continue with gentle IV fluid hydration, monitor strict I&O's, renally dose medications and avoid nephrotoxins. 9. Anemia of chronic disease. Continue monitor CBC and transfuse as needed. 10. Twh-ygttrcc-zihtkiuoi diabetes mellitus, well controlled with most recent A1c of 7.2. Continue medium-dose insulin sliding scale for coverage, Januvia 50 mg p.o. daily and Glyburide 5 mg p.o. b.i.d. 11. History of gastric cancer s/p subtotal gastrectomy 12. History of chronic lymphocytic leukemia. 13. Prophylaxis. GI prophylaxis is not indicated as the patient is eating. DVT prophylaxis is not indicated as the patient is on Heparin drip. CODE STATUS: Full code. Antonio Devi MD MTDD
[2018-04-29] MEDS ORDERED: Sodium Chloride 0.9% 1,000 ML IV STA (13:09)
[2018-04-29] MEDS: Insulin Lispro (humaLOG) MEDIUM Coverage SC SCH ×2 (13:15→17:59)
[2018-04-29] MEDS: NOREPINEPHRINE BIT/0.9 % NACL 4 MG/250 ML BAG IV PRN (13:16)
[2018-04-29] MEDS: Fentanyl 1000mcg/100ml NS 1,000 MCG/100 ML BAG IV PRN ×3 (13:18→22:21)
[2018-04-29 13:35] LABS: ARTERIAL BLOOD GAS PCO2 30 mm/Hg (35-45); ARTERIAL BLOOD GAS PH 7.41 (7.35-7.45); ARTERIAL BLOOD GAS TCO2 19.9 mmol.L (22-28)
[2018-04-29] MEDS: Albuterol-Ipratrop 3 mg / 0.5 (3 ml) UD IH PRN (14:06)
[2018-04-29 14:14] LABS: BASO # 0.02 K/mm3 (0.0-2.0); BASO % 0.1 % (0.0-3.0); HEMOGLOBIN 8.5 g/dL (12.0-16.0); LYMPH # 5.6 (1.2-3.4); LYMPH % 18.1 % (22.0-35.0); MEAN CELL VOLUME 89.1 fl (80.0-105.0); MEAN CORPUSCULAR HEMOGLOBIN 29.8 pg (25.0-35.0); MEAN CORPUSCULAR HGB CONC 33.5 g/dl (31.0-37.0); MEAN PLATELET VOLUME 9.9 fl (7.0-11.0); MONO # 0.6 (0.1-0.6); MONO % 2.1 % (1.0-6.0); RBC 2.85 10^6/uL (3.5-6.1); RED CELL DISTRIBUTION WIDTH 13.3 % (11.5-14.5)
[2018-04-29 14:23] LABS: WHITE BLOOD COUNT 30.8 10^3/uL (4.5-11.0)
[2018-04-29 14:32] LABS: ALB/GLOB RATIO 0.9 (1.1-1.8); ALBUMIN 2.7 g/dL (3.0-4.8); CALCIUM 7.2 mg/dL (8.4-10.5); INR 1.68; PARTIAL THROMBOPLASTIN TIME 58.9 Seconds (26.9-38.3); PROTHROMBIN TIME 18.7 SECONDS (9.4-12.5)
--- NOTE | 2018-04-29 14:47 | RAD ---
Date of service: 04/29/2018 HISTORY: sob, [employer] COMPARISON: Multiple serial examinations preceding the most recent study: April 28, 2018. FINDINGS: LUNGS: Improving pulmonary edema PLEURA: No significant pleural effusion identified, no pneumothorax apparent. CARDIOVASCULAR: Atherosclerotic calcifications identified primarily aortic arch. No radiographic findings to suggest acute or significant cardiovascular disease. OSSEOUS STRUCTURES: No significant abnormalities. VISUALIZED UPPER ABDOMEN: Normal. OTHER FINDINGS: Stable, satisfactory position ventilatory, and nasogastric apparatus. IMPRESSION: Substantial improvements in pulmonary edema. Satisfactory position of recently placed support apparatus including endotracheal tube and nasogastric tube.
--- NOTE | 2018-04-29 15:17 | RAD ---
Date of service: 04/29/2018 HISTORY: confirm central line placement COMPARISON: Portable chest 04/29/2018. FINDINGS: LUNGS: Endotracheal and nasogastric tubes do not appear significantly changed in position. However, a central venous lines in place by an apparent right internal jugular approach with tip turning at the cavoatrial junction. Limited patchy atelectasis seen at the left base with vascular overlap identified the medial right base. PLEURA: Trace left pleural effusion not excluded. None is seen at the right. No pneumothorax bilaterally. CARDIOVASCULAR: Calcific atherosclerotic changes are seen related to the thoracic aorta. Normal cardiac size. No pulmonary vascular congestion. OSSEOUS STRUCTURES: No significant abnormalities. VISUALIZED UPPER ABDOMEN: Normal. OTHER FINDINGS: None. IMPRESSION: Interval right central venous line in good apparent position. Remaining tubes and catheters unchanged in position. Limited left basilar atelectasis identified.
[2018-04-29 15:24] LABS: TROPONIN I 12.6 ng/mL
--- NOTE | 2018-04-29 15:45 | CON ---
DATE: 04/29/2018 HISTORY OF PRESENT ILLNESS: The patient is an 88-year-old female with history of Parkinson disease, COPD, who initially presented to [facility] several days ago with broken ankle. During the evaluation for cardiac clearance for the semi-emergent procedure, the patient was found to have troponin leak, which was attributed by Cardiology Service to non-ST elevated GA. The patient was treated accordingly with dual antiplatelet therapy and heparin drip as well as beta blockade. The subsequent echocardiogram revealed brmy-jw-[id number] left ventricular systolic dysfunction and NARENDRA inhibitors were added for afterload reduction. The patient was doing relatively well until last night when she developed cardiorespiratory arrest in the setting of non-shockable rhythm (PEA/asystole) requiring ACLS initiation. The patient regained spontaneous circulation and was transferred to intensive care unit for further management and monitoring. PAST MEDICAL HISTORY: COPD, Parkinson disease, CHF. SOCIAL HISTORY: The patient is ex-smoker. No alcohol or illicit drug abuse. FAMILY HISTORY: Noncontributory. ALLERGIES: PENICILLIN AND SULFA. HOME MEDICATIONS: Januvia, Azilect, metoprolol, lisinopril, glipizide, impgchawd-eevobasw-eggazstzzm, aspirin. MEDICATIONS IN THE HOSPITAL: Tylenol p.r.n., aspirin, DuoNeb, aztreonam, Stalevo, Plavix, dobutamine, fentanyl drip, heparin, hydrocortisone, regular insulin sliding scale medium protocol, morphine, norepinephrine, Protonix, Januvia, vasopressin. REVIEW OF SYSTEMS: Review of 12-organ system other than mentioned in history of present illness is negative. PHYSICAL EXAMINATION: VITAL SIGNS: Blood pressure 97 /53, heart rate 80, oxygen saturation 100% on 50% FiO2. The patient is intubated 400/14/5/50% on PRVC. The patient is currently on norepinephrine 4 mcg per minute and the blood pressure 97/53, temperature 98.2, end-tidal CO2 on the monitor 29, respiratory rate 25, oxygen saturation 100%. ENT: Head and neck atraumatic, status post right IJ placement. The patient is intubated. LUNGS: Few crackles bibasilarly. HEART: Regular rate and rhythm. S1, S2 distant. ABDOMEN: Soft, nontender, nondistended. MUSCULOSKELETAL EXAM: 1+ bilateral pedal and ankle edema. NEURO: The patient was seen moving all extremities spontaneously. SKIN: Moist. PSYCH: The patient was responding to some verbal and touch stimuli prior to sedation. LABORATORY DATA: Sodium 137, potassium 4.8, chloride 111, carbon dioxide 13, BUN 48, creatinine 2.9 up from 2.6, glucose 284, AST 516, ALT 36, total bilirubin 0.6, LDH 2404. Troponin 10.5. BNP 53,800. VBG is 7.46. Lactic acid 2, down from 3.4. ABG is pending. WBC 28.3, hemoglobin 9, platelet count 337,000. PTT is 60.4. Urine negative for glucose, ketones, blood, nitrites, bilirubin and leukocyte esterase. Head CT showed no significant interval change in diffuse cerebral atrophy and chronic global infarction as discussed in the previous CAT scan, at the right cerebral hemisphere, no definite acute intracranial findings. Chest x-ray showed some vascular congestion bilaterally. NG tube in correct position and central line is in correct position as well. ASSESSMENT AND PLAN: This is an 88-year-old lady who presented with cardiogenic shock after cardiorespiratory arrest in the setting of non-ST elevated myocardial infarction with multiorgan system failure including sgggv-an-zycmstm kidney disease, encephalopathy, respiratory failure, lactic acidosis, transaminitis. Neuro: The patient is sedated with fentanyl drip and Versed p.r.n. The patient was moving all extremities and appeared to be aware of environment prior to sedation implementation. If during sedation vacation in am, the patient will not wake up adequately and in timely manner, we will consider EEG and CT head. Pulmonary: We will proceed with conservative fluid and oxygen management after shock resolution. We will continue with a protective lung ventilation strategy maintaining tidal volume 4 to 8 ml per predicted body weight and plateau pressure less than 30 cm of water. Head of bed elevated more than 35 degrees and oral hygiene. Once shock resolves, the daily sedation vacation and weaning trials will be in order. Cardiovascular: The patient is in cardiogenic shock in the setting of non-ST elevated myocardial infarction status post cardiorespiratory arrest. We will proceed with dual antiplatelet therapy, heparin drip, ionotropic support with dobutamine. Norepinephrine drip, a small dose of vasopressin unlikely to interfere with coronary blood flow and will support mean arterial pressure and thus RV, LV perfusion. We will proceed with stress-dose steroids as well. Cardiology followup appreciated. Gastrointestinal: The patient will be n.p.o. for now and GI prophylaxis. Infectious Disease: The patient's leukocytosis is most likely reactive; however, Infectious Disease consult will be requested. Blood culture, urine culture, procalcitonin will be ordered. Empiric antibiotics will be started. They are going to be deescalated if septic workup returned non-yielding. Endocrine: We will proceed with maintaining blood glucose within 140-180 range according to NICE-SUGAR trial. Renal: We will maintain mean arterial pressure more than 65, we will avoid hyperchloremia and maintain euvolemia and euglycemia. Most likely, the patient is suffering from acute tubular necrosis on top of chronic kidney disease in the setting of ischemic episode (cardiorespiratory arrest). ccm time 40 min Yonny Connell MD MTDRich
--- NOTE | 2018-04-29 18:40 | CON ---
DATE: 04/29/2018 NEUROLOGY CONSULTATION NOTE CHIEF COMPLAINT: Jerky movements status post PEA. HISTORY OF PRESENT ILLNESS: This is a 88-year-old woman, history is obtained from the medical records with history of Parkinson's disease on Stalevo, history of type 2 diabetes mellitus with most recent A1c 7.2, status post subtotal gastrectomy, history of chronic lymphocytic leukemia, hypertension, who came in with recurrent falls, who was initially [facility] for status post mechanical fall resulted on left ankle fracture. His hospital course is complicated by NSTEMI with subsequent PEA arrest along with some jerky movements of extremities CCU for continued care. The patient is currently on heparin drip, aspirin 81 mg, Plavix 75 mg, metoprolol as per Cardiology for underlying NSTEMI. The patient also has some underlying elevated reviewed and demonstrated moderately systolic dysfunction. Cardiology is onboard, Dr. Hendrix, onboard for acute fracture of distal left fibula and light conservative management. The patient has underlying severe sepsis from urinary tract infection. The patient has antibiotics onboard. No further movements on extremities. The patient is intubated on sedation. PAST MEDICAL HISTORY: As above. SOCIAL HISTORY: Ex-smoker. No drugs or ETOH abuse. FAMILY HISTORY: Noncontributory. ALLERGIES: HE IS ALLERGIC IS TO PENICILLIN AND SULFA DRUGS. MEDICATIONS: Metoprolol, Stalevo, and aspirin. Medications reviewed by nurse's reconciliation sheet. REVIEW OF SYSTEMS: A 14-point review of systems is negative except per the HPI. PHYSICAL EXAMINATION: VITAL SIGNS: Blood pressure 97/53, heart rate of 80, oxygen saturation 50 % on FiO2, the patient is intubated 400/14/5/50% on PRBC. The patient is currently on epinephrine. Respiratory rate 25. HEENT: Atraumatic and normocephalic. Has a right eye IJ placement. LUNGS: Few crackles. HEART: Regular rate and rhythm. No murmurs, rubs, or gallops. S1 and S2. ABDOMEN: Soft, nontender, and nondistended. Bowel sounds are present. EXTREMITIES: 1+ pedal edema bilaterally, ankle edema. NEUROLOGIC: The patient is on sedation. The patient moves spontaneous movements of the extremities. Cranial nerves II through XII are intact. Speech is difficult to assess. Sensory; withdrawal to noxious stimulus off sedation. DTRs are 1+ throughout. Coordination and gait deferred for now. LABORATORY DATA: WBC 13.8, hemoglobin of 8.5, hematocrit 25.4, and platelet count 320. Sodium is 141, potassium 4, chloride 111, carbon dioxide 23, BUN of 59, creatinine of 3, random glucose 253. 12.6. ASSESSMENT: This is an 88-year-old with a history of Parkinson's disease on Stalevo, hypertension, congestive heart failure, gastric cancer status post subtotal colectomy, history of chronic lymphocytic leukemia, chronic disease, diabetes mellitus, hypertension, who came in initially to the hospital for mechanical fall which resulted in left ankle fracture which is managed conservatively, hospital course are lij-QH-yvmzkcewd myocardial infarction subsequently pulseless electrical activity spontaneous movements jerks of the extremities likely cardiogenic shock after cardiorespiratory arrest causing jerky movements of extremities with underlying multiorgan failure including acute or chronic kidney disease, encephalopathy, respiratory failure, transaminitis. The patient was moving all extremities and the patient was not awake in timely manner. CAT scan of the head on 04/29/2018 showed no acute intracranial abnormalities. At this time, spontaneous jerky movements is likely result of respiratory pulseless electrical activity arrest as well as multiorgan failure, unlike seizure like events it is difficult to wean off the patient off sedation and the patient does not wake up for the next 72 hours that could concern EEG at this point. We will hold off any antiepileptics. Recommend to hold off any medications and continue with aspirin, Plavix and [id number]-[id number] myocardial infarction . Continue to monitor her blood sugars 140 to 180 and maintain glycemia according to night sugar trial. Keep blood pressures 130s to 140s systolic and diastolic 70s and 80s. Continue with treatment for urinary track infection and prevention of sepsis and avoid medications. Deep vain thrombosis and gastrointestinal prophylaxis for Protonix. Thank you for this consult. Doug Vogel MD
[2018-04-30] MEDS: Insulin Lispro (humaLOG) MEDIUM Coverage SC SCH ×2 (00:39→08:22)
[2018-04-30] MEDS: NOREPINEPHRINE BIT/0.9 % NACL 4 MG/250 ML BAG IV PRN ×5 (02:46→18:50)
[2018-04-30] MEDS ORDERED: Midazolam 100 mg/100ml in NS 100 MG/100 ML SOL IV PRN (03:42)
[2018-04-30] MEDS: Aztreonam 1 Gm in NS 100mL 100 ML IVPB SCH ×3 (05:50→22:28)
[2018-04-30] MEDS: Heparin25000 units/250ml 1/2NS 25,000 UNITS/250 ML BAG IV SCH (05:57)
[2018-04-30 06:15] LABS: ARTERIAL BLOOD GAS HCO3 15.7 mmol/L (21-28); ARTERIAL BLOOD GAS HEMOGLOBIN 10.5 g/dL (11.7-17.4); ARTERIAL BLOOD GAS O2 CAPACITY 14.7 mL/dl (16-24); ARTERIAL BLOOD GAS O2 CONTENT 14.6 ML/dl (15-23); ARTERIAL BLOOD GAS O2 SAT 99.3 % (95-98); ARTERIAL BLOOD GAS PCO2 35 mm/Hg (35-45); ARTERIAL BLOOD GAS PH 7.26 (7.35-7.45); ARTERIAL BLOOD GAS TCO2 16.8 mmol.L (22-28)
[2018-04-30 07:28] LABS: BASO # 0.01 K/mm3 (0.0-2.0); HEMOGLOBIN 8.1 g/dL (12.0-16.0); LYMPH # 4.4 (1.2-3.4); LYMPH % 11.5 % (22.0-35.0); MEAN CELL VOLUME 91.9 fl (80.0-105.0); MEAN CORPUSCULAR HEMOGLOBIN 29.7 pg (25.0-35.0); MEAN CORPUSCULAR HGB CONC 32.3 g/dl (31.0-37.0); MONO % 2.5 % (1.0-6.0); RBC 2.73 10^6/uL (3.5-6.1)
[2018-04-30] MEDS ORDERED: Sodium Chloride 0.9% 1,000 ML IV STA (07:30)
[2018-04-30 07:40] LABS: WHITE BLOOD COUNT 38.1 10^3/uL (4.5-11.0)
[2018-04-30 07:54] LABS: ALB/GLOB RATIO 0.9 (1.1-1.8); ALBUMIN 2.8 g/dL (3.0-4.8)
--- NOTE | 2018-04-30 07:58 | RAD ---
Date of service: 04/30/2018 HISTORY: f/u COMPARISON: Portable chest 04/29/2018. FINDINGS: LUNGS: Endotracheal tube, right central venous line and nasogastric tube are unchanged in position. Linear atelectasis medial left base. No right-sided airspace disease. PLEURA: Trace of pleural effusion again evident. None is seen at the right. No pneumothorax bilaterally. CARDIOVASCULAR: Calcific atherosclerotic changes are seen related to the thoracic aorta. Stable cardiac silhouette. No pulmonary vascular congestion. OSSEOUS STRUCTURES: No significant abnormalities. VISUALIZED UPPER ABDOMEN: Normal. OTHER FINDINGS: None. IMPRESSION: No active disease.
[2018-04-30] MEDS ORDERED: Amiodarone 150 mg/D5W 100 ml 150 MG/100 ML BAG IVPB ONE (09:18)
[2018-04-30] MEDS ORDERED: Amiodarone 360 mg/D5W 200 ml 360 MG/200 ML BAG IV SCH (09:30)
[2018-04-30] MEDS: Carbidopa/Levodopa/Entacapone 37.5mg-150mg-200mg PO SCH ×3 (09:45→18:01)
--- NOTE | 2018-04-30 10:28 | CP.CCUPN ---
<Sandee Huang - Last Filed: 04/30/18 15:16> CCU Subjective - Physician Review Subjective (Free Text): Sandee Huang, PGY-1, ICU Progress Note for Dr. Connell Patient seen and evaluated at bedside. Versed drip was started overnight due to agitation. Patient became hypotensive overnight with SBP of 69-90s overnight with SBP of 69 at 2:00 this morning. Patient's levophed was titrated up from 4 mcg/min to 16 mcg/min overnight. 12-point ROS was unattainable due to patient's intubation status. CCU Objective - Vital Signs / Intake & Output Intake and Output (Last 8hrs): Intake & Output 04/29/18 04/30/18 04/30/18 22:59 06:59 14:59 Intake Total 1613 1348 150 Output Total 425 600 Balance 1188 748 150 Weight 145 lb 141 lb Intake: IV 1313 1348 150 antibiotics 200 200 bicarb 100 dobutamine 17 56 fentanyl 44 120 heparin 108 90 maintenance 500 norepinephrine 30 150 vasopressin 48 108 Oral 300 Output: Urine 425 600 Urethral (Masters) 425 600 - Physical Exam Head: Positive for: Atraumatic, Normocephalic Pupils: Positive for: PERRL Mouth: Positive for: Moist Mucous Membranes Neck: Positive for: Normal Range of Motion Respiratory/Chest: Positive for: Good Air Exchange. Negative for: Respiratory Distress, Accessory Muscle Use Cardiovascular: Positive for: Regular Rate and Rhythm, Normal S1, S2. Negative for: Murmurs Abdomen: Negative for: Tenderness, Distention, Peritoneal Signs Upper Extremity: Positive for: Normal ROM, NORMAL PULSES, Other (multiple small ecchymotic areas consistent with multiple falls). Negative for: Cyanosis, Edema, Tenderness, Swelling Lower Extremity: Positive for: Edema (left ankle), NORMAL PULSES, Tenderness (left ankle), Swelling (left ankle), Neurovascularly Intact, Capillary Refill < 2 s. Negative for: CALF TENDERNESS, Normal ROM (decreased ROM d/t swelling at left nakle normal ROm in all other lowere extremity joints) Neurological: Positive for: CN II-XII Intact Skin: Positive for: Warm, Dry, Other (ecchymotic swollen left ankle with abrasion over left ledial hallux, scattered ecchymosis over lower legs bilaterally) Psychiatric: Negative for: Normal Insight - Medications Active Medications: Active Medications Generic Name Dose Route Start Last Admin Trade Name Freq PRN Reason Stop Dose Admin Acetaminophen 650 mg 04/28/18 00:59 04/28/18 01:29 Tylenol 325mg Tab PO 650 mg Q6H PRN Administration Fever >100.4 F Albuterol/Ipratropium 3 ml 04/28/18 00:32 04/29/18 14:06 Duoneb 3 Mg/0.5 Mg (3 Ml) Ud IH 3 ml [id number] PRN Administration Shortness of Breath Aspirin 81 mg 04/27/18 10:00 04/29/18 10:33 Aspirin Chewable PO 81 mg DAILY STEVEN Administration Carbidopa/Levodopa/Entacapone 1 tab 04/27/18 10:00 04/30/18 09:45 Stalevo 150 PO Not Given TID STEVEN Clopidogrel Bisulfate 75 mg 04/29/18 10:00 04/30/18 09:48 Plavix PO 75 mg DAILY STEVEN Administration Dextrose 0 ml 04/29/18 12:32 Dextrose 50% Inj IV STAT PRN Hypoglycemia Protocol Protocol Docusate Sodium 100 mg 04/27/18 10:00 04/29/18 10:33 Colace PO 100 mg BID STEVEN Administration Glyburide 5 mg 04/28/18 17:00 04/29/18 08:22 Micronase PO 5 mg 0800,1700 STEVEN Administration Hydrocortisone Sodium Succinate 50 mg 04/29/18 12:30 04/30/18 05:50 Solu-Cortef IVP 50 mg Q6H STEVEN Administration Heparin Sodium/Sodium Chloride 25,000 units in 250 mls @ 7.588 mls/hr 04/28/18 10:00 04/30/18 05:57 Heparin 79859 Units/250ml 1/2 Normal Saline IV 12 units/kg/hr .Q24H STEVEN 7.588 mls/hr Administration Protocol 12 UNITS/KG/HR Propofol 1,000 mg in 100 mls @ 1.897 mls/hr 04/29/18 02:00 04/29/18 03:30 Diprivan IV 0 mcg/kg/min .Q24H PRN 0 mls/hr TITRATE PER MD ORDER Titration Protocol 5 MCG/KG/MIN Aztreonam 100 mls @ 100 mls/hr 04/29/18 09:45 04/30/18 05:50 Azactam 1 Gm IVPB 05/06/18 09:46 100 mls/hr Q8 STEVEN Administration Protocol Dobutamine HCl/Dextrose 500 mg in 250 mls @ 4.742 mls/hr 04/29/18 12:26 04/29/18 14:14 Dobutamine/Dextrose 5% 500mg/250ml IV 2.5 mcg/kg/min .Q24H PRN 4.742 mls/hr TITRATE PER PROTOCOL Administration Protocol 2.5 MCG/KG/MIN NOREPINEPHRINE BIT/0.9 % NACL 4 mg in 250 mls @ 15 mls/hr 04/29/18 12:25 04/30/18 09:42 Levophed 4 Mg/ 250 Ml Ns Premixed IV 16 mcg/min .[id number] PRN 60 mls/hr TITRATE PER MD ORDER Titration Protocol 4 MCG/MIN Fentanyl Citrate 1,000 mcg in 100 mls @ 7.5 mls/hr 04/29/18 12:27 04/29/18 22:21 Fentanyl Citrate/Sodium Chloride 1 Mg/100 Ml IV 100 mcg/hr .[id number] PRN 10 mls/hr TITRATE PER MD ORDER Administration Protocol 75 MCG/HR Dextrose 1,000 mls @ 0 mls/hr 04/29/18 12:32 Dextrose 5% In Water 1000 Ml IV .Q0M PRN Hypoglycemia Protocol Protocol Per Protocol Vasopressin 20 units/ Sodium 101 mls @ 9.09 mls/hr 04/29/18 12:39 04/30/18 00:41 Chloride IV 9.09 mls/hr .[id number] STEVEN Administration Protocol 0.03 U/MIN Midazolam 100 mg/100ml in NS 100 mg in 100 mls @ 1 mls/hr 04/30/18 03:42 04/30/18 04:29 Midazolam 100 Mg/100ml In Ns IV 1 mg/hr .Q24H PRN 1 mls/hr Agitation Administration Protocol 1 MG/HR Amiodarone HCl/Dextrose 360 mg in 200 mls @ 33.333 mls/hr 04/30/18 09:30 04/30/18 09:37 Nexterone 360 Mg In D5w 200 Ml (Premix) IV 33.333 mls/hr .Q6H STEVEN Administration Protocol 1 MG/MIN Insulin Human Lispro 0 units 04/29/18 12:45 04/30/18 08:22 Humalog Med SC 5 u Q6H STEVEN Administration Protocol Lisinopril 10 mg 04/27/18 10:00 04/29/18 10:25 Zestril PO Not Given DAILY STEVEN Metoprolol Tartrate 25 mg 04/28/18 08:32 04/29/18 10:25 Lopressor PO Not Given BID STEVEN Midazolam HCl 5 mg 04/29/18 12:27 04/30/18 01:51 Versed Inj IVP 5 mg Q5H PRN Administration Agitation Morphine Sulfate 0.5 mg 04/27/18 08:38 04/28/18 01:27 Morphine IVP 0.5 mg Q4 PRN Administration Pain, moderate (4-7) Nicotine 1 patch 04/29/18 10:00 04/29/18 10:35 Nicoderm Cq TD 1 patch DAILY STEVEN Administration Pantoprazole Sodium 40 mg 04/29/18 10:00 04/30/18 09:48 Protonix Inj IVP 40 mg DAILY STEVEN Administration Sitagliptin Phosphate 50 mg 04/28/18 10:00 04/30/18 09:45 Januvia PO Not Given DAILY STEVEN Zolpidem Tartrate 5 mg 04/28/18 20:25 04/28/18 22:12 Ambien PO 5 mg HS PRN Administration Insomnia Protocol - Patient Studies Lab Studies: Microbiology Studies 04/29/18 05:15 Urine Culture - Final Urine,Clean Catch No Growth (<1,000 CFU/ML) 04/29/18 04:10 Blood Culture - Preliminary Blood-Venous NO GROWTH AFTER 24 HOURS 04/29/18 03:40 Blood Culture - Preliminary Blood-Venous NO GROWTH AFTER 24 HOURS 04/26/18 18:00 Blood Culture - Preliminary Blood NO GROWTH AFTER 3 DAYS 04/26/18 17:30 Blood Culture - Preliminary Blood NO GROWTH AFTER 3 DAYS 04/26/18 18:00 Urine Culture - Final Urine Random Escherichia Coli Lab Studies 04/30/18 04/30/18 04/30/18 Range/Units 06:51 06:50 06:50 WBC (4.5-11.0) 10^3/uL RBC (3.5-6.1) 10^6/uL Hgb (12.0-16.0) g/dL Hct (36.0-48.0) % MCV (80.0-105.0) fl MCH (25.0-35.0) pg MCHC (31.0-37.0) g/dl RDW (11.5-14.5) % Plt Count (120.0-450.0) 10^3/uL MPV (7.0-11.0) fl Neut % (Auto) (50.0-68.0) % Lymph % (Auto) (22.0-35.0) % Randall % (Auto) (1.0-6.0) % Eos % (Auto) (1.5-5.0) % Baso % (Auto) (0.0-3.0) % Lymph # (Auto) (1.2-3.4) Randall # (Auto) (0.1-0.6) Eos # (Auto) (0.0-0.7) Baso # (Auto) (0.0-2.0) K/mm3 Absolute Neuts (auto) (1.4-6.5) PT (9.4-12.5) SECONDS INR APTT 60.9 H (26.9-38.3) Seconds pCO2 (35-45) mm/Hg pO2 (30-55) mm/Hg HCO3 (21-28) mmol/L ABG pH (7.35-7.45) ABG Total CO2 (22-28) mmol.L ABG O2 Saturation (95-98) % ABG O2 Content (15-23) ML/dl ABG Base Excess (-2.0-3.0) mmol/L ABG Hemoglobin (11.7-17.4) g/dL ABG Carboxyhemoglobin (0.5-1.5) % POC ABG HHb (Measured) (0-5) % ABG Methemoglobin (0.0-3.0) % ABG O2 Capacity (16-24) mL/dl ABG Potassium (3.6-5.2) mmol/L VBG pH (7.32-7.43) VBG pCO2 (40-60) VBG HCO3 (21-28) mmol/l VBG Total CO2 (22-28) mmol.L VBG O2 Sat (Calc) (40-65) % VBG Base Excess (0.0-2.0) mmol/L VBG Potassium (3.6-5.2) mmol/L Hgb O2 Saturation (95.0-98.0) % Sodium 143 (132-148) mmol/L Chloride 114 H (98-107) mmol/L Glucose (65-105) mg/dl Lactate (0.7-2.1) mmol/L Mechanical Rate FiO2 % Tidal Volume PEEP Crit Value Called To Crit Value Called By Blood Gas Notified Time Potassium 4.2 (3.6-5.0) mmol/L Carbon Dioxide 17 L (21-33) mmol/L Anion Gap 16 (10-20) BUN 60 H (7-21) mg/dL Creatinine 2.8 H (0.7-1.2) mg/dl Est GFR ( Amer) 19 Est GFR (Non-Af Amer) 16 POC Glucose (mg/dL) 242 H (65-110) mg/dL Random Glucose 239 H (70-110) mg/dL Calcium 7.0 L (8.4-10.5) mg/dL Phosphorus (2.5-4.5) mg/dL Magnesium (1.7-2.2) mg/dL Total Bilirubin 0.6 (0.2-1.3) mg/dL AST 335 H D (14-36) U/L ALT 53 (7-56) U/L Alkaline Phosphatase 109 (38-126) U/L Troponin I ng/mL Total Protein 5.8 (5.8-8.3) g/dL Albumin 2.8 L (3.0-4.8) g/dL Globulin 3.0 gm/dL Albumin/Globulin Ratio 0.9 L (1.1-1.8) Procalcitonin (0.19-0.49) NG/ML Arterial Blood Potassium (3.6-5.2) mmol/L Venous Blood Potassium (3.6-5.2) mmol/L 04/30/18 04/30/18 04/30/18 Range/Units 06:50 06:00 00:34 WBC 38.1 H* D (4.5-11.0) 10^3/uL RBC 2.73 L (3.5-6.1) 10^6/uL Hgb 8.1 L (12.0-16.0) g/dL Hct 25.1 L (36.0-48.0) % MCV 91.9 (80.0-105.0) fl MCH 29.7 (25.0-35.0) pg MCHC 32.3 (31.0-37.0) g/dl RDW 14.0 (11.5-14.5) % Plt Count 301 (120.0-450.0) 10^3/uL MPV 10.0 (7.0-11.0) fl Neut % (Auto) 86.0 H (50.0-68.0) % Lymph % (Auto) 11.5 L (22.0-35.0) % Randall % (Auto) 2.5 (1.0-6.0) % Eos % (Auto) 0.0 L (1.5-5.0) % Baso % (Auto) 0.0 (0.0-3.0) % Lymph # (Auto) 4.4 H (1.2-3.4) Randall # (Auto) 1.0 H (0.1-0.6) Eos # (Auto) 0.0 (0.0-0.7) Baso # (Auto) 0.01 (0.0-2.0) K/mm3 Absolute Neuts (auto) 32.77 H (1.4-6.5) PT (9.4-12.5) SECONDS INR APTT (26.9-38.3) Seconds pCO2 35 (35-45) mm/Hg pO2 144.0 H (30-55) mm/Hg HCO3 15.7 L (21-28) mmol/L ABG pH 7.26 L (7.35-7.45) ABG Total CO2 16.8 L (22-28) mmol.L ABG O2 Saturation 99.3 H (95-98) % ABG O2 Content 14.6 L (15-23) ML/dl ABG Base Excess -10.5 L (-2.0-3.0) mmol/L ABG Hemoglobin 10.5 L (11.7-17.4) g/dL ABG Carboxyhemoglobin 1.6 H (0.5-1.5) % POC ABG HHb (Measured) 0.7 (0-5) % ABG Methemoglobin 0.7 (0.0-3.0) % ABG O2 Capacity 14.7 L (16-24) mL/dl ABG Potassium (3.6-5.2) mmol/L VBG pH (7.32-7.43) VBG pCO2 (40-60) VBG HCO3 (21-28) mmol/l VBG Total CO2 (22-28) mmol.L VBG O2 Sat (Calc) (40-65) % VBG Base Excess (0.0-2.0) mmol/L VBG Potassium (3.6-5.2) mmol/L Hgb O2 Saturation 96.9 (95.0-98.0) % Sodium (132-148) mmol/L Chloride (98-107) mmol/L Glucose (65-105) mg/dl Lactate (0.7-2.1) mmol/L Mechanical Rate FiO2 40.0 % Tidal Volume PEEP Crit Value Called To Crit Value Called By Blood Gas Notified Time Potassium (3.6-5.0) mmol/L Carbon Dioxide (21-33) mmol/L Anion Gap (10-20) BUN (7-21) mg/dL Creatinine (0.7-1.2) mg/dl Est GFR ( Amer) Est GFR (Non-Af Amer) POC Glucose (mg/dL) 219 H (65-110) mg/dL Random Glucose (70-110) mg/dL Calcium (8.4-10.5) mg/dL Phosphorus (2.5-4.5) mg/dL Magnesium (1.7-2.2) mg/dL Total Bilirubin (0.2-1.3) mg/dL AST (14-36) U/L ALT (7-56) U/L Alkaline Phosphatase (38-126) U/L Troponin I ng/mL Total Protein (5.8-8.3) g/dL Albumin (3.0-4.8) g/dL Globulin gm/dL Albumin/Globulin Ratio (1.1-1.8) Procalcitonin (0.19-0.49) NG/ML Arterial Blood Potassium (3.6-5.2) mmol/L Venous Blood Potassium (3.6-5.2) mmol/L 04/29/18 04/29/18 04/29/18 Range/Units 20:59 16:01 14:00 WBC (4.5-11.0) 10^3/uL RBC (3.5-6.1) 10^6/uL Hgb (12.0-16.0) g/dL Hct (36.0-48.0) % MCV (80.0-105.0) fl MCH (25.0-35.0) pg MCHC (31.0-37.0) g/dl RDW (11.5-14.5) % Plt Count (120.0-450.0) 10^3/uL MPV (7.0-11.0) fl Neut % (Auto) (50.0-68.0) % Lymph % (Auto) (22.0-35.0) % Randall % (Auto) (1.0-6.0) % Eos % (Auto) (1.5-5.0) % Baso % (Auto) (0.0-3.0) % Lymph # (Auto) (1.2-3.4) Randall # (Auto) (0.1-0.6) Eos # (Auto) (0.0-0.7) Baso # (Auto) (0.0-2.0) K/mm3 Absolute Neuts (auto) (1.4-6.5) PT 18.7 H (9.4-12.5) SECONDS INR 1.68 APTT 58.9 H (26.9-38.3) Seconds pCO2 (35-45) mm/Hg pO2 (30-55) mm/Hg HCO3 (21-28) mmol/L ABG pH (7.35-7.45) ABG Total CO2 (22-28) mmol.L ABG O2 Saturation (95-98) % ABG O2 Content (15-23) ML/dl ABG Base Excess (-2.0-3.0) mmol/L ABG Hemoglobin (11.7-17.4) g/dL ABG Carboxyhemoglobin (0.5-1.5) % POC ABG HHb (Measured) (0-5) % ABG Methemoglobin (0.0-3.0) % ABG O2 Capacity (16-24) mL/dl ABG Potassium (3.6-5.2) mmol/L VBG pH (7.32-7.43) VBG pCO2 (40-60) VBG HCO3 (21-28) mmol/l VBG Total CO2 (22-28) mmol.L VBG O2 Sat (Calc) (40-65) % VBG Base Excess (0.0-2.0) mmol/L VBG Potassium (3.6-5.2) mmol/L Hgb O2 Saturation (95.0-98.0) % Sodium (132-148) mmol/L Chloride (98-107) mmol/L Glucose (65-105) mg/dl Lactate (0.7-2.1) mmol/L Mechanical Rate FiO2 % Tidal Volume PEEP Crit Value Called To Crit Value Called By Blood Gas Notified Time Potassium (3.6-5.0) mmol/L Carbon Dioxide (21-33) mmol/L Anion Gap (10-20) BUN (7-21) mg/dL Creatinine (0.7-1.2) mg/dl Est GFR ( Amer) Est GFR (Non-Af Amer) POC Glucose (mg/dL) 248 H 266 H (65-110) mg/dL Random Glucose (70-110) mg/dL Calcium (8.4-10.5) mg/dL Phosphorus (2.5-4.5) mg/dL Magnesium (1.7-2.2) mg/dL Total Bilirubin (0.2-1.3) mg/dL AST (14-36) U/L ALT (7-56) U/L Alkaline Phosphatase (38-126) U/L Troponin I ng/mL Total Protein (5.8-8.3) g/dL Albumin (3.0-4.8) g/dL Globulin gm/dL Albumin/Globulin Ratio (1.1-1.8) Procalcitonin (0.19-0.49) NG/ML Arterial Blood Potassium (3.6-5.2) mmol/L Venous Blood Potassium (3.6-5.2) mmol/L 04/29/18 04/29/18 04/29/18 Range/Units 14:00 14:00 13:30 WBC 30.8 H* (4.5-11.0) 10^3/uL RBC 2.85 L (3.5-6.1) 10^6/uL Hgb 8.5 L (12.0-16.0) g/dL Hct 25.4 L (36.0-48.0) % MCV 89.1 (80.0-105.0) fl MCH 29.8 (25.0-35.0) pg MCHC 33.5 (31.0-37.0) g/dl RDW 13.3 (11.5-14.5) % Plt Count 320 (120.0-450.0) 10^3/uL MPV 9.9 (7.0-11.0) fl Neut % (Auto) 79.7 H (50.0-68.0) % Lymph % (Auto) 18.1 L (22.0-35.0) % Randall % (Auto) 2.1 (1.0-6.0) % Eos % (Auto) 0.0 L (1.5-5.0) % Baso % (Auto) 0.1 (0.0-3.0) % Lymph # (Auto) 5.6 H (1.2-3.4) Randall # (Auto) 0.6 (0.1-0.6) Eos # (Auto) 0.0 (0.0-0.7) Baso # (Auto) 0.02 (0.0-2.0) K/mm3 Absolute Neuts (auto) 24.57 H (1.4-6.5) PT (9.4-12.5) SECONDS INR APTT (26.9-38.3) Seconds pCO2 30 L (35-45) mm/Hg pO2 180.0 H (30-55) mm/Hg HCO3 19.0 L (21-28) mmol/L ABG pH 7.41 (7.35-7.45) ABG Total CO2 19.9 L (22-28) mmol.L ABG O2 Saturation 99.0 H (95-98) % ABG O2 Content (15-23) ML/dl ABG Base Excess -4.5 L (-2.0-3.0) mmol/L ABG Hemoglobin (11.7-17.4) g/dL ABG Carboxyhemoglobin (0.5-1.5) % POC ABG HHb (Measured) (0-5) % ABG Methemoglobin (0.0-3.0) % ABG O2 Capacity (16-24) mL/dl ABG Potassium 3.8 (3.6-5.2) mmol/L VBG pH (7.32-7.43) VBG pCO2 (40-60) VBG HCO3 (21-28) mmol/l VBG Total CO2 (22-28) mmol.L VBG O2 Sat (Calc) (40-65) % VBG Base Excess (0.0-2.0) mmol/L VBG Potassium (3.6-5.2) mmol/L Hgb O2 Saturation (95.0-98.0) % Sodium 141 142.0 (132-148) mmol/L Chloride 111 H 111.0 H (98-107) mmol/L Glucose 259 H (65-105) mg/dl Lactate 1.3 (0.7-2.1) mmol/L Mechanical Rate 14 FiO2 50.0 % Tidal Volume 400 PEEP 5 Crit Value Called To Crit Value Called By Blood Gas Notified Time Potassium 4.0 (3.6-5.0) mmol/L Carbon Dioxide 23 (21-33) mmol/L Anion Gap 11 (10-20) BUN 59 H (7-21) mg/dL Creatinine 3.0 H (0.7-1.2) mg/dl Est GFR ( Amer) 18 Est GFR (Non-Af Amer) 15 POC Glucose (mg/dL) (65-110) mg/dL Random Glucose 253 H (70-110) mg/dL Calcium 7.2 L (8.4-10.5) mg/dL Phosphorus 4.6 H (2.5-4.5) mg/dL Magnesium 2.2 (1.7-2.2) mg/dL Total Bilirubin 0.6 (0.2-1.3) mg/dL AST 937 H D (14-36) U/L ALT 54 (7-56) U/L Alkaline Phosphatase 105 (38-126) U/L Troponin I 12.60 H* ng/mL Total Protein 5.6 L (5.8-8.3) g/dL Albumin 2.7 L (3.0-4.8) g/dL Globulin 2.9 gm/dL Albumin/Globulin Ratio 0.9 L (1.1-1.8) Procalcitonin (0.19-0.49) NG/ML Arterial Blood Potassium 3.8 (3.6-5.2) mmol/L Venous Blood Potassium (3.6-5.2) mmol/L 04/29/18 04/29/18 04/29/18 Range/Units 12:15 10:40 10:40 WBC (4.5-11.0) 10^3/uL RBC (3.5-6.1) 10^6/uL Hgb (12.0-16.0) g/dL Hct (36.0-48.0) % MCV (80.0-105.0) fl MCH (25.0-35.0) pg MCHC (31.0-37.0) g/dl RDW (11.5-14.5) % Plt Count (120.0-450.0) 10^3/uL MPV (7.0-11.0) fl Neut % (Auto) (50.0-68.0) % Lymph % (Auto) (22.0-35.0) % Randall % (Auto) (1.0-6.0) % Eos % (Auto) (1.5-5.0) % Baso % (Auto) (0.0-3.0) % Lymph # (Auto) (1.2-3.4) Randall # (Auto) (0.1-0.6) Eos # (Auto) (0.0-0.7) Baso # (Auto) (0.0-2.0) K/mm3 Absolute Neuts (auto) (1.4-6.5) PT (9.4-12.5) SECONDS INR APTT (26.9-38.3) Seconds pCO2 (35-45) mm/Hg pO2 105 H (30-55) mm/Hg HCO3 (21-28) mmol/L ABG pH (7.35-7.45) ABG Total CO2 (22-28) mmol.L ABG O2 Saturation (95-98) % ABG O2 Content (15-23) ML/dl ABG Base Excess (-2.0-3.0) mmol/L ABG Hemoglobin (11.7-17.4) g/dL ABG Carboxyhemoglobin (0.5-1.5) % POC ABG HHb (Measured) (0-5) % ABG Methemoglobin (0.0-3.0) % ABG O2 Capacity (16-24) mL/dl ABG Potassium (3.6-5.2) mmol/L VBG pH 7.46 H (7.32-7.43) VBG pCO2 28.0 L (40-60) VBG HCO3 19.9 L (21-28) mmol/l VBG Total CO2 20.8 L (22-28) mmol.L VBG O2 Sat (Calc) 98.5 H (40-65) % VBG Base Excess -2.6 L (0.0-2.0) mmol/L VBG Potassium 4.5 (3.6-5.2) mmol/L Hgb O2 Saturation (95.0-98.0) % Sodium 141.0 (132-148) mmol/L Chloride 110.0 H (98-107) mmol/L Glucose 320 H (65-105) mg/dl Lactate 2.0 (0.7-2.1) mmol/L Mechanical Rate FiO2 21.0 % Tidal Volume PEEP Crit Value Called To Miriam Crit Value Called By Ab Blood Gas Notified Time 1100 Potassium (3.6-5.0) mmol/L Carbon Dioxide (21-33) mmol/L Anion Gap (10-20) BUN (7-21) mg/dL Creatinine (0.7-1.2) mg/dl Est GFR ( Amer) Est GFR (Non-Af Amer) POC Glucose (mg/dL) 287 H (65-110) mg/dL Random Glucose (70-110) mg/dL Calcium (8.4-10.5) mg/dL Phosphorus (2.5-4.5) mg/dL Magnesium (1.7-2.2) mg/dL Total Bilirubin (0.2-1.3) mg/dL AST (14-36) U/L ALT (7-56) U/L Alkaline Phosphatase (38-126) U/L Troponin I ng/mL Total Protein (5.8-8.3) g/dL Albumin (3.0-4.8) g/dL Globulin gm/dL Albumin/Globulin Ratio (1.1-1.8) Procalcitonin 27.27 H (0.19-0.49) NG/ML Arterial Blood Potassium (3.6-5.2) mmol/L Venous Blood Potassium 4.5 (3.6-5.2) mmol/L 04/29/18 04/28/18 04/28/18 Range/Units 06:46 21:48 16:34 WBC (4.5-11.0) 10^3/uL RBC (3.5-6.1) 10^6/uL Hgb (12.0-16.0) g/dL Hct (36.0-48.0) % MCV (80.0-105.0) fl MCH (25.0-35.0) pg MCHC (31.0-37.0) g/dl RDW (11.5-14.5) % Plt Count (120.0-450.0) 10^3/uL MPV (7.0-11.0) fl Neut % (Auto) (50.0-68.0) % Lymph % (Auto) (22.0-35.0) % Randall % (Auto) (1.0-6.0) % Eos % (Auto) (1.5-5.0) % Baso % (Auto) (0.0-3.0) % Lymph # (Auto) (1.2-3.4) Randall # (Auto) (0.1-0.6) Eos # (Auto) (0.0-0.7) Baso # (Auto) (0.0-2.0) K/mm3 Absolute Neuts (auto) (1.4-6.5) PT (9.4-12.5) SECONDS INR APTT (26.9-38.3) Seconds pCO2 (35-45) mm/Hg pO2 (30-55) mm/Hg HCO3 (21-28) mmol/L ABG pH (7.35-7.45) ABG Total CO2 (22-28) mmol.L ABG O2 Saturation (95-98) % ABG O2 Content (15-23) ML/dl ABG Base Excess (-2.0-3.0) mmol/L ABG Hemoglobin (11.7-17.4) g/dL ABG Carboxyhemoglobin (0.5-1.5) % POC ABG HHb (Measured) (0-5) % ABG Methemoglobin (0.0-3.0) % ABG O2 Capacity (16-24) mL/dl ABG Potassium (3.6-5.2) mmol/L VBG pH (7.32-7.43) VBG pCO2 (40-60) VBG HCO3 (21-28) mmol/l VBG Total CO2 (22-28) mmol.L VBG O2 Sat (Calc) (40-65) % VBG Base Excess (0.0-2.0) mmol/L VBG Potassium (3.6-5.2) mmol/L Hgb O2 Saturation (95.0-98.0) % Sodium (132-148) mmol/L Chloride (98-107) mmol/L Glucose (65-105) mg/dl Lactate (0.7-2.1) mmol/L Mechanical Rate FiO2 % Tidal Volume PEEP Crit Value Called To Crit Value Called By Blood Gas Notified Time Potassium (3.6-5.0) mmol/L Carbon Dioxide (21-33) mmol/L Anion Gap (10-20) BUN (7-21) mg/dL Creatinine (0.7-1.2) mg/dl Est GFR ( Amer) Est GFR (Non-Af Amer) POC Glucose (mg/dL) 323 H 140 H 137 H (65-110) mg/dL Random Glucose (70-110) mg/dL Calcium (8.4-10.5) mg/dL Phosphorus (2.5-4.5) mg/dL Magnesium (1.7-2.2) mg/dL Total Bilirubin (0.2-1.3) mg/dL AST (14-36) U/L ALT (7-56) U/L Alkaline Phosphatase (38-126) U/L Troponin I ng/mL Total Protein (5.8-8.3) g/dL Albumin (3.0-4.8) g/dL Globulin gm/dL Albumin/Globulin Ratio (1.1-1.8) Procalcitonin (0.19-0.49) NG/ML Arterial Blood Potassium (3.6-5.2) mmol/L Venous Blood Potassium (3.6-5.2) mmol/L 01/29/19 01/29/19 01/27/19 Range/Units 11:22 08:35 20:07 WBC (4.5-11.0) 10^3/uL RBC (3.5-6.1) 10^6/uL Hgb (12.0-16.0) g/dL Hct (36.0-48.0) % MCV (80.0-105.0) fl MCH (25.0-35.0) pg MCHC (31.0-37.0) g/dl RDW (11.5-14.5) % Plt Count (120.0-450.0) 10^3/uL MPV (7.0-11.0) fl Neut % (Auto) (50.0-68.0) % Lymph % (Auto) (22.0-35.0) % Randall % (Auto) (1.0-6.0) % Eos % (Auto) (1.5-5.0) % Baso % (Auto) (0.0-3.0) % Lymph # (Auto) (1.2-3.4) Randall # (Auto) (0.1-0.6) Eos # (Auto) (0.0-0.7) Baso # (Auto) (0.0-2.0) K/mm3 Absolute Neuts (auto) (1.4-6.5) PT (9.4-12.5) SECONDS INR APTT (26.9-38.3) Seconds pCO2 (35-45) mm/Hg pO2 (30-55) mm/Hg HCO3 (21-28) mmol/L ABG pH (7.35-7.45) ABG Total CO2 (22-28) mmol.L ABG O2 Saturation (95-98) % ABG O2 Content (15-23) ML/dl ABG Base Excess (-2.0-3.0) mmol/L ABG Hemoglobin (11.7-17.4) g/dL ABG Carboxyhemoglobin (0.5-1.5) % POC ABG HHb (Measured) (0-5) % ABG Methemoglobin (0.0-3.0) % ABG O2 Capacity (16-24) mL/dl ABG Potassium (3.6-5.2) mmol/L VBG pH (7.32-7.43) VBG pCO2 (40-60) VBG HCO3 (21-28) mmol/l VBG Total CO2 (22-28) mmol.L VBG O2 Sat (Calc) (40-65) % VBG Base Excess (0.0-2.0) mmol/L VBG Potassium (3.6-5.2) mmol/L Hgb O2 Saturation (95.0-98.0) % Sodium (132-148) mmol/L Chloride (98-107) mmol/L Glucose (65-105) mg/dl Lactate (0.7-2.1) mmol/L Mechanical Rate FiO2 % Tidal Volume PEEP Crit Value Called To Crit Value Called By Blood Gas Notified Time Potassium (3.6-5.0) mmol/L Carbon Dioxide (21-33) mmol/L Anion Gap (10-20) BUN (7-21) mg/dL Creatinine (0.7-1.2) mg/dl Est GFR ( Amer) Est GFR (Non-Af Amer) POC Glucose (mg/dL) 258 H 368 H 199 H (65-110) mg/dL Random Glucose (70-110) mg/dL Calcium (8.4-10.5) mg/dL Phosphorus (2.5-4.5) mg/dL Magnesium (1.7-2.2) mg/dL Total Bilirubin (0.2-1.3) mg/dL AST (14-36) U/L ALT (7-56) U/L Alkaline Phosphatase (38-126) U/L Troponin I ng/mL Total Protein (5.8-8.3) g/dL Albumin (3.0-4.8) g/dL Globulin gm/dL Albumin/Globulin Ratio (1.1-1.8) Procalcitonin (0.19-0.49) NG/ML Arterial Blood Potassium (3.6-5.2) mmol/L Venous Blood Potassium (3.6-5.2) mmol/L Laboratory Results - last 24 hr 04/26/18 04/28/18 04/28/18 20:07 08:35 11:22 WBC RBC Hgb Hct MCV MCH MCHC RDW Plt Count MPV Neut % (Auto) Lymph % (Auto) Randall % (Auto) Eos % (Auto) Baso % (Auto) Lymph # (Auto) Randall # (Auto) Eos # (Auto) Baso # (Auto) Absolute Neuts (auto) PT INR APTT pCO2 pO2 HCO3 ABG pH ABG Total CO2 ABG O2 Saturation ABG O2 Content ABG Base Excess ABG Hemoglobin ABG Carboxyhemoglobin POC ABG HHb (Measured) ABG Methemoglobin ABG O2 Capacity ABG Potassium VBG pH VBG pCO2 VBG HCO3 VBG Total CO2 VBG O2 Sat (Calc) VBG Base Excess VBG Potassium Hgb O2 Saturation Sodium Chloride Glucose Lactate Mechanical Rate FiO2 Tidal Volume PEEP Crit Value Called To Crit Value Called By Blood Gas Notified Time Potassium Carbon Dioxide Anion Gap BUN Creatinine Est GFR ( Amer) Est GFR (Non-Af Amer) POC Glucose (mg/dL) 199 H 368 H 258 H Random Glucose Calcium Phosphorus Magnesium Total Bilirubin AST ALT Alkaline Phosphatase Troponin I Total Protein Albumin Globulin Albumin/Globulin Ratio Procalcitonin Arterial Blood Potassium Venous Blood Potassium 04/28/18 04/28/18 04/29/18 16:34 21:48 06:46 WBC RBC Hgb Hct MCV MCH MCHC RDW Plt Count MPV Neut % (Auto) Lymph % (Auto) Randall % (Auto) Eos % (Auto) Baso % (Auto) Lymph # (Auto) Randall # (Auto) Eos # (Auto) Baso # (Auto) Absolute Neuts (auto) PT INR APTT pCO2 pO2 HCO3 ABG pH ABG Total CO2 ABG O2 Saturation ABG O2 Content ABG Base Excess ABG Hemoglobin ABG Carboxyhemoglobin POC ABG HHb (Measured) ABG Methemoglobin ABG O2 Capacity ABG Potassium VBG pH VBG pCO2 VBG HCO3 VBG Total CO2 VBG O2 Sat (Calc) VBG Base Excess VBG Potassium Hgb O2 Saturation Sodium Chloride Glucose Lactate Mechanical Rate FiO2 Tidal Volume PEEP Crit Value Called To Crit Value Called By Blood Gas Notified Time Potassium Carbon Dioxide Anion Gap BUN Creatinine Est GFR ( Amer) Est GFR (Non-Af Amer) POC Glucose (mg/dL) 137 H 140 H 323 H Random Glucose Calcium Phosphorus Magnesium Total Bilirubin AST ALT Alkaline Phosphatase Troponin I Total Protein Albumin Globulin Albumin/Globulin Ratio Procalcitonin Arterial Blood Potassium Venous Blood Potassium 0104/29/18 04/29/18 10:40 10:40 12:15 WBC RBC Hgb Hct MCV MCH MCHC RDW Plt Count MPV Neut % (Auto) Lymph % (Auto) Randall % (Auto) Eos % (Auto) Baso % (Auto) Lymph # (Auto) Randall # (Auto) Eos # (Auto) Baso # (Auto) Absolute Neuts (auto) PT INR APTT pCO2 pO2 105 H HCO3 ABG pH ABG Total CO2 ABG O2 Saturation ABG O2 Content ABG Base Excess ABG Hemoglobin ABG Carboxyhemoglobin POC ABG HHb (Measured) ABG Methemoglobin ABG O2 Capacity ABG Potassium VBG pH 7.46 H VBG pCO2 28.0 L VBG HCO3 19.9 L VBG Total CO2 20.8 L VBG O2 Sat (Calc) 98.5 H VBG Base Excess -2.6 L VBG Potassium 4.5 Hgb O2 Saturation Sodium 141.0 Chloride 110.0 H Glucose 320 H Lactate 2.0 Mechanical Rate FiO2 21.0 Tidal Volume PEEP Crit Value Called To Miriam Crijd Value Called By Ab Blood Gas Notified Time 1100 Potassium Carbon Dioxide Anion Gap BUN Creatinine Est GFR ( Amer) Est GFR (Non-Af Amer) POC Glucose (mg/dL) 287 H Random Glucose Calcium Phosphorus Magnesium Total Bilirubin AST ALT Alkaline Phosphatase Troponin I Total Protein Albumin Globulin Albumin/Globulin Ratio Procalcitonin 27.27 H Arterial Blood Potassium Venous Blood Potassium 4.5 04/29/18 04/29/18 04/29/18 13:30 14:00 14:00 WBC 30.8 H* RBC 2.85 L Hgb 8.5 L Hct 25.4 L MCV 89.1 MCH 29.8 MCHC 33.5 RDW 13.3 Plt Count 320 MPV 9.9 Neut % (Auto) 79.7 H Lymph % (Auto) 18.1 L Randall % (Auto) 2.1 Eos % (Auto) 0.0 L Baso % (Auto) 0.1 Lymph # (Auto) 5.6 H Randall # (Auto) 0.6 Eos # (Auto) 0.0 Baso # (Auto) 0.02 Absolute Neuts (auto) 24.57 H PT INR APTT pCO2 30 L pO2 180.0 H HCO3 19.0 L ABG pH 7.41 ABG Total CO2 19.9 L ABG O2 Saturation 99.0 H ABG O2 Content ABG Base Excess -4.5 L ABG Hemoglobin ABG Carboxyhemoglobin POC ABG HHb (Measured) ABG Methemoglobin ABG O2 Capacity ABG Potassium 3.8 VBG pH VBG pCO2 VBG HCO3 VBG Total CO2 VBG O2 Sat (Calc) VBG Base Excess VBG Potassium Hgb O2 Saturation Sodium 142.0 141 Chloride 111.0 H 111 H Glucose 259 H Lactate 1.3 Mechanical Rate 14 FiO2 50.0 Tidal Volume 400 PEEP 5 Crit Value Called To Crit Value Called By Blood Gas Notified Time Potassium 4.0 Carbon Dioxide 23 Anion Gap 11 BUN 59 H Creatinine 3.0 H Est GFR ( Amer) 18 Est GFR (Non-Af Amer) 15 POC Glucose (mg/dL) Random Glucose 253 H Calcium 7.2 L Phosphorus 4.6 H Magnesium 2.2 Total Bilirubin 0.6 AST 937 H D ALT 54 Alkaline Phosphatase 105 Troponin I 12.60 H* Total Protein 5.6 L Albumin 2.7 L Globulin 2.9 Albumin/Globulin Ratio 0.9 L Procalcitonin Arterial Blood Potassium 3.8 Venous Blood Potassium 04/29/18 04/29/18 04/29/18 14:00 16:01 20:59 WBC RBC Hgb Hct MCV MCH MCHC RDW Plt Count MPV Neut % (Auto) Lymph % (Auto) Randall % (Auto) Eos % (Auto) Baso % (Auto) Lymph # (Auto) Randall # (Auto) Eos # (Auto) Baso # (Auto) Absolute Neuts (auto) PT 18.7 H INR 1.68 APTT 58.9 H pCO2 pO2 HCO3 ABG pH ABG Total CO2 ABG O2 Saturation ABG O2 Content ABG Base Excess ABG Hemoglobin ABG Carboxyhemoglobin POC ABG HHb (Measured) ABG Methemoglobin ABG O2 Capacity ABG Potassium VBG pH VBG pCO2 VBG HCO3 VBG Total CO2 VBG O2 Sat (Calc) VBG Base Excess VBG Potassium Hgb O2 Saturation Sodium Chloride Glucose Lactate Mechanical Rate FiO2 Tidal Volume PEEP Crit Value Called To Crit Value Called By Blood Gas Notified Time Potassium Carbon Dioxide Anion Gap BUN Creatinine Est GFR ( Amer) Est GFR (Non-Af Amer) POC Glucose (mg/dL) 266 H 248 H Random Glucose Calcium Phosphorus Magnesium Total Bilirubin AST ALT Alkaline Phosphatase Troponin I Total Protein Albumin Globulin Albumin/Globulin Ratio Procalcitonin Arterial Blood Potassium Venous Blood Potassium 04/30/18 04/30/18 04/30/18 00:34 06:00 06:50 WBC 38.1 H* D RBC 2.73 L Hgb 8.1 L Hct 25.1 L MCV 91.9 MCH 29.7 MCHC 32.3 RDW 14.0 Plt Count 301 MPV 10.0 Neut % (Auto) 86.0 H Lymph % (Auto) 11.5 L Randall % (Auto) 2.5 Eos % (Auto) 0.0 L Baso % (Auto) 0.0 Lymph # (Auto) 4.4 H Randall # (Auto) 1.0 H Eos # (Auto) 0.0 Baso # (Auto) 0.01 Absolute Neuts (auto) 32.77 H PT INR APTT pCO2 35 pO2 144.0 H HCO3 15.7 L ABG pH 7.26 L ABG Total CO2 16.8 L ABG O2 Saturation 99.3 H ABG O2 Content 14.6 L ABG Base Excess -10.5 L ABG Hemoglobin 10.5 L ABG Carboxyhemoglobin 1.6 H POC ABG HHb (Measured) 0.7 ABG Methemoglobin 0.7 ABG O2 Capacity 14.7 L ABG Potassium VBG pH VBG pCO2 VBG HCO3 VBG Total CO2 VBG O2 Sat (Calc) VBG Base Excess VBG Potassium Hgb O2 Saturation 96.9 Sodium Chloride Glucose Lactate Mechanical Rate FiO2 40.0 Tidal Volume PEEP Crit Value Called To Crit Value Called By Blood Gas Notified Time Potassium Carbon Dioxide Anion Gap BUN Creatinine Est GFR ( Amer) Est GFR (Non-Af Amer) POC Glucose (mg/dL) 219 H Random Glucose Calcium Phosphorus Magnesium Total Bilirubin AST ALT Alkaline Phosphatase Troponin I Total Protein Albumin Globulin Albumin/Globulin Ratio Procalcitonin Arterial Blood Potassium Venous Blood Potassium 04/30/18 04/30/18 04/30/18 06:50 06:50 06:51 WBC RBC Hgb Hct MCV MCH MCHC RDW Plt Count MPV Neut % (Auto) Lymph % (Auto) Randall % (Auto) Eos % (Auto) Baso % (Auto) Lymph # (Auto) Randall # (Auto) Eos # (Auto) Baso # (Auto) Absolute Neuts (auto) PT INR APTT 60.9 H pCO2 pO2 HCO3 ABG pH ABG Total CO2 ABG O2 Saturation ABG O2 Content ABG Base Excess ABG Hemoglobin ABG Carboxyhemoglobin POC ABG HHb (Measured) ABG Methemoglobin ABG O2 Capacity ABG Potassium VBG pH VBG pCO2 VBG HCO3 VBG Total CO2 VBG O2 Sat (Calc) VBG Base Excess VBG Potassium Hgb O2 Saturation Sodium 143 Chloride 114 H Glucose Lactate Mechanical Rate FiO2 Tidal Volume PEEP Crit Value Called To Crit Value Called By Blood Gas Notified Time Potassium 4.2 Carbon Dioxide 17 L Anion Gap 16 BUN 60 H Creatinine 2.8 H Est GFR ( Amer) 19 Est GFR (Non-Af Amer) 16 POC Glucose (mg/dL) 242 H Random Glucose 239 H Calcium 7.0 L Phosphorus Magnesium Total Bilirubin 0.6 AST 335 H D ALT 53 Alkaline Phosphatase 109 Troponin I Total Protein 5.8 Albumin 2.8 L Globulin 3.0 Albumin/Globulin Ratio 0.9 L Procalcitonin Arterial Blood Potassium Venous Blood Potassium Radiology Impressions: Radiology Impressions Chest X-Ray 04/29/18 01:24 IMPRESSION: Substantial improvements in pulmonary edema. Satisfactory position of recently placed support apparatus including endotracheal tube and nasogastric tube. Chest X-Ray 04/29/18 12:12 IMPRESSION: Interval right central venous line in good apparent position. Remaining tubes and catheters unchanged in position. Limited left basilar atelectasis identified. Chest X-Ray 04/30/18 06:00 IMPRESSION: No active disease. Fingerstick Blood Sugar Results: 219 Review of Systems - Review of Systems Review of Systems: except for what was mentioned in HPI Critical Care Progress Note - Ventilator Checklist Head of Bed 30 Degrees: Yes PUD Prophalyxis: Yes DVT Prophylaxis: Yes - Vent Settings TIDAL VOLUME:: 400 RESP RATE:: 14 FIO2:: 40 PEEP:: 5 - Extremities/Vascular Does the Patient have a Central Venous Catheter?: Yes Insertion Site: Internal Jugular Vein - Nutrition Nutrition: Nutrition Category Date Time Status NPO Diet [DIET] Diets 04/29/18 Breakfast Ordered Assessment/Plan - Assessment and Plan (Free Text) Assessment: 88 year old female with past medical history of right ICA stenosis status post carotid endarterectomy, hypertension, hyperlipidemia, diabetes mellitus type II, Parkinson's disease is currently diagnosed with multisystem organ failure 2/2 to hypoperfusion from cardiogenic shock vs. distributive shock. Patient is currently on triple vasopressor therapy including levophed, vasopressin, and epinephrine; amiodarone for uncontrolled sinus tachycardia. Plan: Neuro: -Intubated and sedated on fentanyl. -Head CT was ordered to evaluate for intracranial hemorrhage. Parkinson's disease -Continue with levodopa/carbidopa Cardio: NSTEMI -RRR, hypotension at 60s/40s -Heparin drip held due to possible intracranial hemorrhage. -Continue with aspirin, plavix, lopressor. -Maintain MAP>65. -Monitor for S/S, HD compromise. Hypotension -Currently hypotensive so hold all anti-hypertensive medications and propofol. -Due to hypotension, central line was placed. Levophed was increased to 16 mcg/min, vasopressin 0.03 was continued, solucortef 50 mg Q6 was continued, and dobutamine drip was stopped. -Due to tachycardia, patient was started on amiodarone 1 mg/min after an amiodarone 150 mg bolus. -Epinephrine drip 5 mcg/min was started for better control of hypotension -For better blood pressure measurement, arterial line will be placed today. Pulm: Hypoxic, Hypercarbic respiratory failure -Ventilator settings: 400/14/5/40% -ABG 04/30: pH: 7.26, pO2: 144, pCO2: 35 -Chest CT ordered to evaluate for etiology of sepsis and organ injury from cardiogenic vs. distributive shock. -Due to acidosis, patient was started on 1/2 NS with NaHCO3 at 100 cc/hr -Maintain O2 saturation>90%. -Head of bed to 30 degrees -Daily CXR and ABGs. CXR from 04/30 shows no acute disease. -Daily weaning trials and sedation vacation -Head of bed to 30 degrees -Conservative fluid management -Maintain oral hygiene COPD -Duonebs Q4 PRN, solucortef 50 mg Q6 GI: Acute Liver Injury -Improved LFTs today -Abdominal CT ordered to evaluate for multisystem organ dysfunction and other etiology of sepsis. Diet -NPO GI prophylaxis -Protonix 40 mg IV daily /Nephro: Acute tubular necrosis -MODS with ischemic injury to kidney leading to ATN. -BUN/Cr stable at 60/2.8. Creatinine was 2.9 yesterday. Baseline is 1.0 -Avoid nephrotoxins such as lisinopril and losartan. -UCx shows pansensitive E. Coli covered with cefepime. -Due to nongap metabolic acidosis, patient was started on 1/2 NS with NaHCO3 at 100 cc/hr -Good urine output. Masters intact -Continue monitoring. -Replete electrolytes as needed. -Maintain euvolemia. Endocrinology: Diabetes Mellitus type II -Random glucose: 239 -High sliding scale insulin -Maintain euglycemia. Heme/Onc: Normocytic Anemia -H/H stable at 8.1/25.1 from Hgb of 9 yesterday. -No signs of HD compromise. -Continue monitoring H/H DVT prophylaxis -heparin drip at 12 U/kg/hr ID: Sepsis 2/2 to UTI vs. Gastrointestinal Pathology -Afebrile, leukocytosis improved to 38.1 from 30.1 -Abdominal CT ordered to evaluate for multisystem organ dysfunction and other etiology of sepsis. -Blood culture negative in 24 hours -UCx: pansensitive E. Coli -Procalcitonin: 27.27 from 0.69 -Lactate: trending down to 1.6 from 3.4 -Continue with vancomycin and cefepime day 3 -Monitor for signs and symptoms of infection. Patient seen and examined with Dr. Connell. - Date & Time Date: 04/30/18 Time: 10:21 <Yonny Connell - Last Filed: 04/30/18 16:35> CCU Objective - Vital Signs / Intake & Output Vital Signs (Last 4 hours): Vital Signs Temp Pulse BP Pulse Ox 04/30/18 14:45 98.6 F 92 H 92/52 L 99 04/30/18 14:35 89/51 L 04/30/18 14:34 98.6 F 91 H 98 04/30/18 14:30 98.6 F 91 H 83/51 L 98 04/30/18 14:18 91/46 L 04/30/18 14:17 98.6 F 94 H 99 04/30/18 14:15 98.6 F 93 H 126/100 H 99 04/30/18 14:00 98.6 F 94 H 90/58 L 99 04/30/18 13:45 98.6 F 94 H 94/49 L 99 04/30/18 13:30 98.6 F 96 H 96/50 L 99 04/30/18 13:00 98.6 F 100 H 90/51 L 98 04/30/18 12:45 98.6 F 95 H 86/53 L 98 Intake and Output (Last 8hrs): Intake & Output 04/30/18 04/30/18 04/30/18 06:59 14:59 22:59 Intake Total 1348 550 Output Total 600 Balance 748 550 Weight 141 lb Intake: IV 1348 550 antibiotics 200 dobutamine 56 fentanyl 120 heparin 90 norepinephrine 150 vasopressin 108 Output: Urine 600 Urethral (Masters) 600 - Medications Active Medications: Active Medications Generic Name Dose Route Start Last Admin Trade Name Freq PRN Reason Stop Dose Admin Acetaminophen 650 mg 04/28/18 00:59 04/28/18 01:29 Tylenol 325mg Tab PO 650 mg Q6H PRN Administration Fever >100.4 F Albuterol/Ipratropium 3 ml 04/28/18 00:32 04/29/18 14:06 Duoneb 3 Mg/0.5 Mg (3 Ml) Ud IH 3 ml [id number] PRN Administration Shortness of Breath Aspirin 81 mg 04/27/18 10:00 04/30/18 10:54 Aspirin Chewable PO 81 mg DAILY STEVEN Administration Carbidopa/Levodopa/Entacapone 1 tab 04/27/18 10:00 04/30/18 13:51 Stalevo 150 PO Not Given TID STEVEN Clopidogrel Bisulfate 75 mg 04/29/18 10:00 04/30/18 09:48 Plavix PO 75 mg DAILY STEVEN Administration Dextrose 0 ml 04/29/18 12:32 Dextrose 50% Inj IV STAT PRN Hypoglycemia Protocol Protocol Docusate Sodium 100 mg 04/27/18 10:00 04/29/18 10:33 Colace PO 100 mg BID STEVEN Administration Glyburide 5 mg 04/28/18 17:00 04/29/18 08:22 Micronase PO 5 mg 0800,1700 STEVEN Administration Hydrocortisone Sodium Succinate 50 mg 04/29/18 12:30 04/30/18 13:53 Solu-Cortef IVP 50 mg Q6H STEVEN Administration Heparin Sodium/Sodium Chloride 25,000 units in 250 mls @ 7.588 mls/hr 04/28/18 10:00 04/30/18 10:41 Heparin 72563 Units/250ml 1/2 Normal Saline IV 0 units/kg/hr .Q24H STEVEN 0 mls/hr Titration Protocol 12 UNITS/KG/HR Propofol 1,000 mg in 100 mls @ 1.897 mls/hr 04/29/18 02:00 04/29/18 03:30 Diprivan IV 0 mcg/kg/min .Q24H PRN 0 mls/hr TITRATE PER MD ORDER Titration Protocol 5 MCG/KG/MIN Aztreonam 100 mls @ 100 mls/hr 04/29/18 09:45 04/30/18 13:53 Azactam 1 Gm IVPB 05/06/18 09:46 100 mls/hr Q8 STEVEN Administration Protocol Dobutamine HCl/Dextrose 500 mg in 250 mls @ 4.742 mls/hr 04/29/18 12:26 04/29/18 14:14 Dobutamine/Dextrose 5% 500mg/250ml IV 2.5 mcg/kg/min .Q24H PRN 4.742 mls/hr TITRATE PER PROTOCOL Administration Protocol 2.5 MCG/KG/MIN NOREPINEPHRINE BIT/0.9 % NACL 4 mg in 250 mls @ 15 mls/hr 04/29/18 12:25 04/30/18 14:48 Levophed 4 Mg/ 250 Ml Ns Premixed IV 20 mcg/min .[id number] PRN 75 mls/hr TITRATE PER MD ORDER Administration Protocol 4 MCG/MIN Fentanyl Citrate 1,000 mcg in 100 mls @ 7.5 mls/hr 04/29/18 12:27 04/29/18 22:21 Fentanyl Citrate/Sodium Chloride 1 Mg/100 Ml IV 100 mcg/hr .[id number] PRN 10 mls/hr TITRATE PER MD ORDER Administration Protocol 75 MCG/HR Dextrose 1,000 mls @ 0 mls/hr 04/29/18 12:32 Dextrose 5% In Water 1000 Ml IV .Q0M PRN Hypoglycemia Protocol Protocol Per Protocol Vasopressin 20 units/ Sodium 101 mls @ 9.09 mls/hr 04/29/18 12:39 04/30/18 10:37 Chloride IV 9.09 mls/hr .[id number] STEVEN Administration Protocol 0.03 U/MIN Midazolam 100 mg/100ml in NS 100 mg in 100 mls @ 1 mls/hr 04/30/18 03:42 04/30/18 04:29 Midazolam 100 Mg/100ml In Ns IV 1 mg/hr .Q24H PRN 1 mls/hr Agitation Administration Protocol 1 MG/HR Epinephrine HCl 1 mg/ Sodium 51 mls @ 15.3 mls/hr 04/30/18 10:36 Chloride IV .Q3H20M PRN TITRATE PER MD ORDER Protocol 5 MCG/MIN Sodium Bicarbonate 75 meq/ 1,075 mls @ 100 mls/hr 04/30/18 15:15 Sodium Chloride IV .[id number] STEVEN Amiodarone HCl/Dextrose 360 mg in 200 mls @ 16.667 mls/hr 04/30/18 15:30 04/30/18 15:31 Nexterone 360 Mg In D5w 200 Ml (Premix) IV 16.667 mls/hr .Q12H STEVEN Administration Protocol 0.5 MG/MIN Insulin Human Lispro 0 units 04/30/18 18:00 Humalog High SC Q6 STEVEN Protocol Lisinopril 10 mg 04/27/18 10:00 04/29/18 10:25 Zestril PO Not Given DAILY STEVEN Metoprolol Tartrate 25 mg 04/28/18 08:32 04/29/18 10:25 Lopressor PO Not Given BID STEVEN Midazolam HCl 5 mg 04/29/18 12:27 04/30/18 01:51 Versed Inj IVP 5 mg Q5H PRN Administration Agitation Morphine Sulfate 0.5 mg 04/27/18 08:38 04/28/18 01:27 Morphine IVP 0.5 mg Q4 PRN Administration Pain, moderate (4-7) Nicotine 1 patch 04/29/18 10:00 04/29/18 10:35 Nicoderm Cq TD 1 patch DAILY STEVEN Administration Pantoprazole Sodium 40 mg 04/29/18 10:00 04/30/18 09:48 Protonix Inj IVP 40 mg DAILY STEVEN Administration Zolpidem Tartrate 5 mg 04/28/18 20:25 04/28/18 22:12 Ambien PO 5 mg HS PRN Administration Insomnia Protocol - Patient Studies Lab Studies: Microbiology Studies 04/29/18 03:40 Blood Culture - Preliminary Blood-Venous Gram Negative Jose Gram Stain - Final 04/29/18 04:10 Blood Culture - Preliminary Blood-Venous Gram Negative Jose Gram Stain - Final 04/29/18 03:50 MRSA Culture (Admit) - Final Nose MRSA NOT DETECTED 04/29/18 05:15 Urine Culture - Final Urine,Clean Catch No Growth (<1,000 CFU/ML) 04/26/18 18:00 Blood Culture - Preliminary Blood NO GROWTH AFTER 3 DAYS 04/26/18 17:30 Blood Culture - Preliminary Blood NO GROWTH AFTER 3 DAYS Lab Studies 04/30/18 04/30/18 04/30/18 Range/Units 16:01 15:50 12:00 WBC (4.5-11.0) 10^3/uL RBC (3.5-6.1) 10^6/uL Hgb (12.0-16.0) g/dL Hct (36.0-48.0) % MCV (80.0-105.0) fl MCH (25.0-35.0) pg MCHC (31.0-37.0) g/dl RDW (11.5-14.5) % Plt Count (120.0-450.0) 10^3/uL MPV (7.0-11.0) fl Neut % (Auto) (50.0-68.0) % Lymph % (Auto) (22.0-35.0) % Randall % (Auto) (1.0-6.0) % Eos % (Auto) (1.5-5.0) % Baso % (Auto) (0.0-3.0) % Lymph # (Auto) (1.2-3.4) Randall # (Auto) (0.1-0.6) Eos # (Auto) (0.0-0.7) Baso # (Auto) (0.0-2.0) K/mm3 Absolute Neuts (auto) (1.4-6.5) APTT (26.9-38.3) Seconds pCO2 35 (35-45) mm/Hg pO2 106.0 H (80-100) mm/Hg HCO3 15.3 L (21-28) mmol/L ABG pH 7.25 L (7.35-7.45) ABG Total CO2 16.4 L (22-28) mmol.L ABG O2 Saturation 98.4 H (95-98) % ABG O2 Content (15-23) ML/dl ABG Base Excess -11.0 L (-2.0-3.0) mmol/L ABG Hemoglobin (11.7-17.4) g/dL ABG Carboxyhemoglobin (0.5-1.5) % POC ABG HHb (Measured) (0-5) % ABG Methemoglobin (0.0-3.0) % ABG O2 Capacity (16-24) mL/dl ABG Potassium 3.9 (3.6-5.2) mmol/L Hgb O2 Saturation (95.0-98.0) % Glucose 273 H (65-105) mg/dl Lactate 1.2 (0.7-2.1) mmol/L FiO2 35.0 % PEEP 5 Pressure Support 5 Sodium 141.0 (132-148) mmol/L Potassium (3.6-5.0) mmol/L Chloride 113.0 H (98-107) mmol/L Carbon Dioxide (21-33) mmol/L Anion Gap (10-20) BUN (7-21) mg/dL Creatinine (0.7-1.2) mg/dl Est GFR ( Amer) Est GFR (Non-Af Amer) POC Glucose (mg/dL) (65-110) mg/dL Random Glucose (70-110) mg/dL Calcium (8.4-10.5) mg/dL Total Bilirubin (0.2-1.3) mg/dL AST (14-36) U/L ALT (7-56) U/L Alkaline Phosphatase (38-126) U/L Total Protein (5.8-8.3) g/dL Albumin (3.0-4.8) g/dL Globulin gm/dL Albumin/Globulin Ratio (1.1-1.8) Procalcitonin (0.19-0.49) NG/ML Arterial Blood Potassium 3.9 (3.6-5.2) mmol/L Urine Color Dark yellow (YELLOW) Urine Appearance Sl cloudy (CLEAR) Urine pH 6.0 (4.7-8.0) Ur Specific Melrude >= 1.030 (1.005-1.035) Urine Protein 30 H (<30 mg/dL) mg/dL Urine Glucose (UA) Negative (NEGATIVE) mg/dL Urine Ketones Trace H (NEGATIVE) mg/dL Urine Blood Large H (NEGATIVE) Urine Nitrate Negative (NEGATIVE) Urine Bilirubin Negative (NEGATIVE) Urine Urobilinogen 0.2 (<1 E.U./dL) E.U./dL Ur Leukocyte Esterase Trace H (NEGATIVE) Ariadna/uL Urine RBC 25 - 30 H (0-2) /hpf Urine WBC 5 - 10 H (0-6) /hpf Ur Epithelial Cells 6 - 8 H (0-5) /hpf Amorphous Sediment Small (NONE) /hpf Urine Bacteria Trace (NONE) /hpf Influenza Typ A,B (EIA) Negative for flu a/b (NEGATIVE) 04/30/18 04/30/18 04/30/18 Range/Units 11:08 06:51 06:50 WBC (4.5-11.0) 10^3/uL RBC (3.5-6.1) 10^6/uL Hgb (12.0-16.0) g/dL Hct (36.0-48.0) % MCV (80.0-105.0) fl MCH (25.0-35.0) pg MCHC (31.0-37.0) g/dl RDW (11.5-14.5) % Plt Count (120.0-450.0) 10^3/uL MPV (7.0-11.0) fl Neut % (Auto) (50.0-68.0) % Lymph % (Auto) (22.0-35.0) % Randall % (Auto) (1.0-6.0) % Eos % (Auto) (1.5-5.0) % Baso % (Auto) (0.0-3.0) % Lymph # (Auto) (1.2-3.4) Randall # (Auto) (0.1-0.6) Eos # (Auto) (0.0-0.7) Baso # (Auto) (0.0-2.0) K/mm3 Absolute Neuts (auto) (1.4-6.5) APTT 60.9 H (26.9-38.3) Seconds pCO2 (35-45) mm/Hg pO2 (80-100) mm/Hg HCO3 (21-28) mmol/L ABG pH (7.35-7.45) ABG Total CO2 (22-28) mmol.L ABG O2 Saturation (95-98) % ABG O2 Content (15-23) ML/dl ABG Base Excess (-2.0-3.0) mmol/L ABG Hemoglobin (11.7-17.4) g/dL ABG Carboxyhemoglobin (0.5-1.5) % POC ABG HHb (Measured) (0-5) % ABG Methemoglobin (0.0-3.0) % ABG O2 Capacity (16-24) mL/dl ABG Potassium (3.6-5.2) mmol/L Hgb O2 Saturation (95.0-98.0) % Glucose (65-105) mg/dl Lactate (0.7-2.1) mmol/L FiO2 % PEEP Pressure Support Sodium (132-148) mmol/L Potassium (3.6-5.0) mmol/L Chloride (98-107) mmol/L Carbon Dioxide (21-33) mmol/L Anion Gap (10-20) BUN (7-21) mg/dL Creatinine (0.7-1.2) mg/dl Est GFR ( Amer) Est GFR (Non-Af Amer) POC Glucose (mg/dL) 292 H 242 H (65-110) mg/dL Random Glucose (70-110) mg/dL Calcium (8.4-10.5) mg/dL Total Bilirubin (0.2-1.3) mg/dL AST (14-36) U/L ALT (7-56) U/L Alkaline Phosphatase (38-126) U/L Total Protein (5.8-8.3) g/dL Albumin (3.0-4.8) g/dL Globulin gm/dL Albumin/Globulin Ratio (1.1-1.8) Procalcitonin (0.19-0.49) NG/ML Arterial Blood Potassium (3.6-5.2) mmol/L Urine Color (YELLOW) Urine Appearance (CLEAR) Urine pH (4.7-8.0) Ur Specific Melr[place] (1.005-1.035) Urine Protein (<30 mg/dL) mg/dL Urine Glucose (UA) (NEGATIVE) mg/dL Urine Ketones (NEGATIVE) mg/dL Urine Blood (NEGATIVE) Urine Nitrate (NEGATIVE) Urine Bilirubin (NEGATIVE) Urine Urobilinogen (<1 E.U./dL) E.U./dL Ur Leukocyte Esterase (NEGATIVE) [place]/uL Urine RBC (0-2) /hpf Urine WBC (0-6) /hpf Ur Epithelial Cells (0-5) /hpf Amorphous Sediment (NONE) /hpf Urine Bacteria (NONE) /hpf Influenza Typ A,B (EIA) (NEGATIVE) 04/30/18 04/30/18 04/30/18 Range/Units 06:50 06:50 06:00 WBC 38.1 H* D (4.5-11.0) 10^3/uL RBC 2.73 L (3.5-6.1) 10^6/uL Hgb 8.1 L (12.0-16.0) g/dL Hct 25.1 L (36.0-48.0) % MCV 91.9 (80.0-105.0) fl MCH 29.7 (25.0-35.0) pg MCHC 32.3 (31.0-37.0) g/dl RDW 14.0 (11.5-14.5) % Plt Count 301 (120.0-450.0) 10^3/uL MPV 10.0 (7.0-11.0) fl Neut % (Auto) 86.0 H (50.0-68.0) % Lymph % (Auto) 11.5 L (22.0-35.0) % Randall % (Auto) 2.5 (1.0-6.0) % Eos % (Auto) 0.0 L (1.5-5.0) % Baso % (Auto) 0.0 (0.0-3.0) % Lymph # (Auto) 4.4 H (1.2-3.4) Randall # (Auto) 1.0 H (0.1-0.6) Eos # (Auto) 0.0 (0.0-0.7) Baso # (Auto) 0.01 (0.0-2.0) K/mm3 Absolute Neuts (auto) 32.77 H (1.4-6.5) APTT (26.9-38.3) Seconds pCO2 35 (35-45) mm/Hg pO2 144.0 H (80-100) mm/Hg HCO3 15.7 L (21-28) mmol/L ABG pH 7.26 L (7.35-7.45) ABG Total CO2 16.8 L (22-28) mmol.L ABG O2 Saturation 99.3 H (95-98) % ABG O2 Content 14.6 L (15-23) ML/dl ABG Base Excess -10.5 L (-2.0-3.0) mmol/L ABG Hemoglobin 10.5 L (11.7-17.4) g/dL ABG Carboxyhemoglobin 1.6 H (0.5-1.5) % POC ABG HHb (Measured) 0.7 (0-5) % ABG Methemoglobin 0.7 (0.0-3.0) % ABG O2 Capacity 14.7 L (16-24) mL/dl ABG Potassium (3.6-5.2) mmol/L Hgb O2 Saturation 96.9 (95.0-98.0) % Glucose (65-105) mg/dl Lactate (0.7-2.1) mmol/L FiO2 40.0 % PEEP Pressure Support Sodium 143 (132-148) mmol/L Potassium 4.2 (3.6-5.0) mmol/L Chloride 114 H (98-107) mmol/L Carbon Dioxide 17 L (21-33) mmol/L Anion Gap 16 (10-20) BUN 60 H (7-21) mg/dL Creatinine 2.8 H (0.7-1.2) mg/dl Est GFR ( Amer) 19 Est GFR (Non-Af Amer) 16 POC Glucose (mg/dL) (65-110) mg/dL Random Glucose 239 H (70-110) mg/dL Calcium 7.0 L (8.4-10.5) mg/dL Total Bilirubin 0.6 (0.2-1.3) mg/dL AST 335 H D (14-36) U/L ALT 53 (7-56) U/L Alkaline Phosphatase 109 (38-126) U/L Total Protein 5.8 (5.8-8.3) g/dL Albumin 2.8 L (3.0-4.8) g/dL Globulin 3.0 gm/dL Albumin/Globulin Ratio 0.9 L (1.1-1.8) Procalcitonin (0.19-0.49) NG/ML Arterial Blood Potassium (3.6-5.2) mmol/L Urine Color (YELLOW) Urine Appearance (CLEAR) Urine pH (4.7-8.0) Ur Specific [place] (1.005-1.035) Urine Protein (<30 mg/dL) mg/dL Urine Glucose (UA) (NEGATIVE) mg/dL Urine Ketones (NEGATIVE) mg/dL Urine Blood (NEGATIVE) Urine Nitrate (NEGATIVE) Urine Bilirubin (NEGATIVE) Urine Urobilinogen (<1 E.U./dL) E.U./dL Ur Leukocyte Esterase (NEGATIVE) [place]/uL Urine RBC (0-2) /hpf Urine WBC (0-6) /hpf Ur Epithelial Cells (0-5) /hpf Amorphous Sediment (NONE) /hpf Urine Bacteria (NONE) /hpf Influenza Typ A,B (EIA) (NEGATIVE) 04/30/18 04/29/18 04/29/18 Range/Units 00:34 20:59 16:01 WBC (4.5-11.0) 10^3/uL RBC (3.5-6.1) 10^6/uL Hgb (12.0-16.0) g/dL Hct (36.0-48.0) % MCV (80.0-105.0) fl MCH (25.0-35.0) pg MCHC (31.0-37.0) g/dl RDW (11.5-14.5) % Plt Count (120.0-450.0) 10^3/uL MPV (7.0-11.0) fl Neut % (Auto) (50.0-68.0) % Lymph % (Auto) (22.0-35.0) % Randall % (Auto) (1.0-6.0) % Eos % (Auto) (1.5-5.0) % Baso % (Auto) (0.0-3.0) % Lymph # (Auto) (1.2-3.4) Randall # (Auto) (0.1-0.6) Eos # (Auto) (0.0-0.7) Baso # (Auto) (0.0-2.0) K/mm3 Absolute Neuts (auto) (1.4-6.5) APTT (26.9-38.3) Seconds pCO2 (35-45) mm/Hg pO2 (80-100) mm/Hg HCO3 (21-28) mmol/L ABG pH (7.35-7.45) ABG Total CO2 (22-28) mmol.L ABG O2 Saturation (95-98) % ABG O2 Content (15-23) ML/dl ABG Base Excess (-2.0-3.0) mmol/L ABG Hemoglobin (11.7-17.4) g/dL ABG Carboxyhemoglobin (0.5-1.5) % POC ABG HHb (Measured) (0-5) % ABG Methemoglobin (0.0-3.0) % ABG O2 Capacity (16-24) mL/dl ABG Potassium (3.6-5.2) mmol/L Hgb O2 Saturation (95.0-98.0) % Glucose (65-105) mg/dl Lactate (0.7-2.1) mmol/L FiO2 % PEEP Pressure Support Sodium (132-148) mmol/L Potassium (3.6-5.0) mmol/L Chloride (98-107) mmol/L Carbon Dioxide (21-33) mmol/L Anion Gap (10-20) BUN (7-21) mg/dL Creatinine (0.7-1.2) mg/dl Est GFR ( Amer) Est GFR (Non-Af Amer) POC Glucose (mg/dL) 219 H 248 H 266 H (65-110) mg/dL Random Glucose (70-110) mg/dL Calcium (8.4-10.5) mg/dL Total Bilirubin (0.2-1.3) mg/dL AST (14-36) U/L ALT (7-56) U/L Alkaline Phosphatase (38-126) U/L Total Protein (5.8-8.3) g/dL Albumin (3.0-4.8) g/dL Globulin gm/dL Albumin/Globulin Ratio (1.1-1.8) Procalcitonin (0.19-0.49) NG/ML Arterial Blood Potassium (3.6-5.2) mmol/L Urine Color (YELLOW) Urine Appearance (CLEAR) Urine pH (4.7-8.0) Ur Specific [place] (1.005-1.035) Urine Protein (<30 mg/dL) mg/dL Urine Glucose (UA) (NEGATIVE) mg/dL Urine Ketones (NEGATIVE) mg/dL Urine Blood (NEGATIVE) Urine Nitrate (NEGATIVE) Urine Bilirubin (NEGATIVE) Urine Urobilinogen (<1 E.U./dL) E.U./dL Ur Leukocyte Esterase (NEGATIVE) [place]/uL Urine RBC (0-2) /hpf Urine WBC (0-6) /hpf Ur Epithelial Cells (0-5) /hpf Amorphous Sediment (NONE) /hpf Urine Bacteria (NONE) /hpf Influenza Typ A,B (EIA) (NEGATIVE) 04/29/18 04/29/18 04/29/18 Range/Units 12:15 10:40 06:46 WBC (4.5-11.0) 10^3/uL RBC (3.5-6.1) 10^6/uL Hgb (12.0-16.0) g/dL Hct (36.0-48.0) % MCV (80.0-105.0) fl MCH (25.0-35.0) pg MCHC (31.0-37.0) g/dl RDW (11.5-14.5) % Plt Count (120.0-450.0) 10^3/uL MPV (7.0-11.0) fl Neut % (Auto) (50.0-68.0) % Lymph % (Auto) (22.0-35.0) % Randall % (Auto) (1.0-6.0) % Eos % (Auto) (1.5-5.0) % Baso % (Auto) (0.0-3.0) % Lymph # (Auto) (1.2-3.4) Randall # (Auto) (0.1-0.6) Eos # (Auto) (0.0-0.7) Baso # (Auto) (0.0-2.0) K/mm3 Absolute Neuts (auto) (1.4-6.5) APTT (26.9-38.3) Seconds pCO2 (35-45) mm/Hg pO2 (80-100) mm/Hg HCO3 (21-28) mmol/L ABG pH (7.35-7.45) ABG Total CO2 (22-28) mmol.L ABG O2 Saturation (95-98) % ABG O2 Content (15-23) ML/dl ABG Base Excess (-2.0-3.0) mmol/L ABG Hemoglobin (11.7-17.4) g/dL ABG Carboxyhemoglobin (0.5-1.5) % POC ABG HHb (Measured) (0-5) % ABG Methemoglobin (0.0-3.0) % ABG O2 Capacity (16-24) mL/dl ABG Potassium (3.6-5.2) mmol/L Hgb O2 Saturation (95.0-98.0) % Glucose (65-105) mg/dl Lactate (0.7-2.1) mmol/L FiO2 % PEEP Pressure Support Sodium (132-148) mmol/L Potassium (3.6-5.0) mmol/L Chloride (98-107) mmol/L Carbon Dioxide (21-33) mmol/L Anion Gap (10-20) BUN (7-21) mg/dL Creatinine (0.7-1.2) mg/dl Est GFR ( Amer) Est GFR (Non-Af Amer) POC Glucose (mg/dL) 287 H 323 H (65-110) mg/dL Random Glucose (70-110) mg/dL Calcium (8.4-10.5) mg/dL Total Bilirubin (0.2-1.3) mg/dL AST (14-36) U/L ALT (7-56) U/L Alkaline Phosphatase (38-126) U/L Total Protein (5.8-8.3) g/dL Albumin (3.0-4.8) g/dL Globulin gm/dL Albumin/Globulin Ratio (1.1-1.8) Procalcitonin 27.27 H (0.19-0.49) NG/ML Arterial Blood Potassium (3.6-5.2) mmol/L Urine Color (YELLOW) Urine Appearance (CLEAR) Urine pH (4.7-8.0) Ur Specific [place] (1.005-1.035) Urine Protein (<30 mg/dL) mg/dL Urine Glucose (UA) (NEGATIVE) mg/dL Urine Ketones (NEGATIVE) mg/dL Urine Blood (NEGATIVE) Urine Nitrate (NEGATIVE) Urine Bilirubin (NEGATIVE) Urine Urobilinogen (<1 E.U./dL) E.U./dL Ur Leukocyte Esterase (NEGATIVE) [place]/uL Urine RBC (0-2) /hpf Urine WBC (0-6) /hpf Ur Epithelial Cells (0-5) /hpf Amorphous Sediment (NONE) /hpf Urine Bacteria (NONE) /hpf Influenza Typ A,B (EIA) (NEGATIVE) 04/28/18 04/28/18 04/28/18 Range/Units 21:48 16:34 11:22 WBC (4.5-11.0) 10^3/uL RBC (3.5-6.1) 10^6/uL Hgb (12.0-16.0) g/dL Hct (36.0-48.0) % MCV (80.0-105.0) fl MCH (25.0-35.0) pg MCHC (31.0-37.0) g/dl RDW (11.5-14.5) % Plt Count (120.0-450.0) 10^3/uL MPV (7.0-11.0) fl Neut % (Auto) (50.0-68.0) % Lymph % (Auto) (22.0-35.0) % Randall % (Auto) (1.0-6.0) % Eos % (Auto) (1.5-5.0) % Baso % (Auto) (0.0-3.0) % Lymph # (Auto) (1.2-3.4) Randall # (Auto) (0.1-0.6) Eos # (Auto) (0.0-0.7) Baso # (Auto) (0.0-2.0) K/mm3 Absolute Neuts (auto) (1.4-6.5) APTT (26.9-38.3) Seconds pCO2 (35-45) mm/Hg pO2 (80-100) mm/Hg HCO3 (21-28) mmol/L ABG pH (7.35-7.45) ABG Total CO2 (22-28) mmol.L ABG O2 Saturation (95-98) % ABG O2 Content (15-23) ML/dl ABG Base Excess (-2.0-3.0) mmol/L ABG Hemoglobin (11.7-17.4) g/dL ABG Carboxyhemoglobin (0.5-1.5) % POC ABG HHb (Measured) (0-5) % ABG Methemoglobin (0.0-3.0) % ABG O2 Capacity (16-24) mL/dl ABG Potassium (3.6-5.2) mmol/L Hgb O2 Saturation (95.0-98.0) % Glucose (65-105) mg/dl Lactate (0.7-2.1) mmol/L FiO2 % PEEP Pressure Support Sodium (132-148) mmol/L Potassium (3.6-5.0) mmol/L Chloride (98-107) mmol/L Carbon Dioxide (21-33) mmol/L Anion Gap (10-20) BUN (7-21) mg/dL Creatinine (0.7-1.2) mg/dl Est GFR ( Amer) Est GFR (Non-Af Amer) POC Glucose (mg/dL) 140 H 137 H 258 H (65-110) mg/dL Random Glucose (70-110) mg/dL Calcium (8.4-10.5) mg/dL Total Bilirubin (0.2-1.3) mg/dL AST (14-36) U/L ALT (7-56) U/L Alkaline Phosphatase (38-126) U/L Total Protein (5.8-8.3) g/dL Albumin (3.0-4.8) g/dL Globulin gm/dL Albumin/Globulin Ratio (1.1-1.8) Procalcitonin (0.19-0.49) NG/ML Arterial Blood Potassium (3.6-5.2) mmol/L Urine Color (YELLOW) Urine Appearance (CLEAR) Urine pH (4.7-8.0) Ur Specific [place] (1.005-1.035) Urine Protein (<30 mg/dL) mg/dL Urine Glucose (UA) (NEGATIVE) mg/dL Urine Ketones (NEGATIVE) mg/dL Urine Blood (NEGATIVE) Urine Nitrate (NEGATIVE) Urine Bilirubin (NEGATIVE) Urine Urobilinogen (<1 E.U./dL) E.U./dL Ur Leukocyte Esterase (NEGATIVE) [place]/uL Urine RBC (0-2) /hpf Urine WBC (0-6) /hpf Ur Epithelial Cells (0-5) /hpf Amorphous Sediment (NONE) /hpf Urine Bacteria (NONE) /hpf Influenza Typ A,B (EIA) (NEGATIVE) 04/28/18 04/26/18 Range/Units 08:35 20:07 WBC (4.5-11.0) 10^3/uL RBC (3.5-6.1) 10^6/uL Hgb (12.0-16.0) g/dL Hct (36.0-48.0) % MCV (80.0-105.0) fl MCH (25.0-35.0) pg MCHC (31.0-37.0) g/dl RDW (11.5-14.5) % Plt Count (120.0-450.0) 10^3/uL MPV (7.0-11.0) fl Neut % (Auto) (50.0-68.0) % Lymph % (Auto) (22.0-35.0) % Randall % (Auto) (1.0-6.0) % Eos % (Auto) (1.5-5.0) % Baso % (Auto) (0.0-3.0) % Lymph # (Auto) (1.2-3.4) Randall # (Auto) (0.1-0.6) Eos # (Auto) (0.0-0.7) Baso # (Auto) (0.0-2.0) K/mm3 Absolute Neuts (auto) (1.4-6.5) APTT (26.9-38.3) Seconds pCO2 (35-45) mm/Hg pO2 (80-100) mm/Hg HCO3 (21-28) mmol/L ABG pH (7.35-7.45) ABG Total CO2 (22-28) mmol.L ABG O2 Saturation (95-98) % ABG O2 Content (15-23) ML/dl ABG Base Excess (-2.0-3.0) mmol/L ABG Hemoglobin (11.7-17.4) g/dL ABG Carboxyhemoglobin (0.5-1.5) % POC ABG HHb (Measured) (0-5) % ABG Methemoglobin (0.0-3.0) % ABG O2 Capacity (16-24) mL/dl ABG Potassium (3.6-5.2) mmol/L Hgb O2 Saturation (95.0-98.0) % Glucose (65-105) mg/dl Lactate (0.7-2.1) mmol/L FiO2 % PEEP Pressure Support Sodium (132-148) mmol/L Potassium (3.6-5.0) mmol/L Chloride (98-107) mmol/L Carbon Dioxide (21-33) mmol/L Anion Gap (10-20) BUN (7-21) mg/dL Creatinine (0.7-1.2) mg/dl Est GFR ( Amer) Est GFR (Non-Af Amer) POC Glucose (mg/dL) 368 H 199 H (65-110) mg/dL Random Glucose (70-110) mg/dL Calcium (8.4-10.5) mg/dL Total Bilirubin (0.2-1.3) mg/dL AST (14-36) U/L ALT (7-56) U/L Alkaline Phosphatase (38-126) U/L Total Protein (5.8-8.3) g/dL Albumin (3.0-4.8) g/dL Globulin gm/dL Albumin/Globulin Ratio (1.1-1.8) Procalcitonin (0.19-0.49) NG/ML Arterial Blood Potassium (3.6-5.2) mmol/L Urine Color (YELLOW) Urine Appearance (CLEAR) Urine pH (4.7-8.0) Ur Specific [place] (1.005-1.035) Urine Protein (<30 mg/dL) mg/dL Urine Glucose (UA) (NEGATIVE) mg/dL Urine Ketones (NEGATIVE) mg/dL Urine Blood (NEGATIVE) Urine Nitrate (NEGATIVE) Urine Bilirubin (NEGATIVE) Urine Urobilinogen (<1 E.U./dL) E.U./dL Ur Leukocyte Esterase (NEGATIVE) [place]/uL Urine RBC (0-2) /hpf Urine WBC (0-6) /hpf Ur Epithelial Cells (0-5) /hpf Amorphous Sediment (NONE) /hpf Urine Bacteria (NONE) /hpf Influenza Typ A,B (EIA) (NEGATIVE) Laboratory Results - last 24 hr 04/26/18 04/28/18 04/28/18 20:07 08:35 11:22 WBC RBC Hgb Hct MCV MCH MCHC RDW Plt Count MPV Neut % (Auto) Lymph % (Auto) Randall % (Auto) Eos % (Auto) Baso % (Auto) Lymph # (Auto) Randall # (Auto) Eos # (Auto) Baso # (Auto) Absolute Neuts (auto) APTT pCO2 pO2 HCO3 ABG pH ABG Total CO2 ABG O2 Saturation ABG O2 Content ABG Base Excess ABG Hemoglobin ABG Carboxyhemoglobin POC ABG HHb (Measured) ABG Methemoglobin ABG O2 Capacity ABG Potassium Hgb O2 Saturation Glucose Lactate FiO2 PEEP Pressure Support Sodium Potassium Chloride Carbon Dioxide Anion Gap BUN Creatinine Est GFR ( Amer) Est GFR (Non-Af Amer) POC Glucose (mg/dL) 199 H 368 H 258 H Random Glucose Calcium Total Bilirubin AST ALT Alkaline Phosphatase Total Protein Albumin Globulin Albumin/Globulin Ratio Procalcitonin Arterial Blood Potassium Urine Color Urine Appearance Urine pH Ur Specific [place] Urine Protein Urine Glucose (UA) Urine Ketones Urine Blood Urine Nitrate Urine Bilirubin Urine Urobilinogen Ur Leukocyte Esterase Urine RBC Urine WBC Ur Epithelial Cells Amorphous Sediment Urine Bacteria Influenza Typ A,B (EIA) 04/28/18 04/28/18 04/29/18 16:34 21:48 06:46 WBC RBC Hgb Hct MCV MCH MCHC RDW Plt Count MPV Neut % (Auto) Lymph % (Auto) Randall % (Auto) Eos % (Auto) Baso % (Auto) Lymph # (Auto) Randall # (Auto) Eos # (Auto) Baso # (Auto) Absolute Neuts (auto) APTT pCO2 pO2 HCO3 ABG pH ABG Total CO2 ABG O2 Saturation ABG O2 Content ABG Base Excess ABG Hemoglobin ABG Carboxyhemoglobin POC ABG HHb (Measured) ABG Methemoglobin ABG O2 Capacity ABG Potassium Hgb O2 Saturation Glucose Lactate FiO2 PEEP Pressure Support Sodium Potassium Chloride Carbon Dioxide Anion Gap BUN Creatinine Est GFR ( Amer) Est GFR (Non-Af Amer) POC Glucose (mg/dL) 137 H 140 H 323 H Random Glucose Calcium Total Bilirubin AST ALT Alkaline Phosphatase Total Protein Albumin Globulin Albumin/Globulin Ratio Procalcitonin Arterial Blood Potassium Urine Color Urine Appearance Urine pH Ur Specific [place] Urine Protein Urine Glucose (UA) Urine Ketones Urine Blood Urine Nitrate Urine Bilirubin Urine Urobilinogen Ur Leukocyte Esterase Urine RBC Urine WBC Ur Epithelial Cells Amorphous Sediment Urine Bacteria Influenza Typ A,B (EIA) 04/29/18 04/29/18 04/29/18 10:40 12:15 16:01 WBC RBC Hgb Hct MCV MCH MCHC RDW Plt Count MPV Neut % (Auto) Lymph % (Auto) Randall % (Auto) Eos % (Auto) Baso % (Auto) Lymph # (Auto) Randall # (Auto) Eos # (Auto) Baso # (Auto) Absolute Neuts (auto) APTT pCO2 pO2 HCO3 ABG pH ABG Total CO2 ABG O2 Saturation ABG O2 Content ABG Base Excess ABG Hemoglobin ABG Carboxyhemoglobin POC ABG HHb (Measured) ABG Methemoglobin ABG O2 Capacity ABG Potassium Hgb O2 Saturation Glucose Lactate FiO2 PEEP Pressure Support Sodium Potassium Chloride Carbon Dioxide Anion Gap BUN Creatinine Est GFR ( Amer) Est GFR (Non-Af Amer) POC Glucose (mg/dL) 287 H 266 H Random Glucose Calcium Total Bilirubin AST ALT Alkaline Phosphatase Total Protein Albumin Globulin Albumin/Globulin Ratio Procalcitonin 27.27 H Arterial Blood Potassium Urine Color Urine Appearance Urine pH Ur Specific [place] Urine Protein Urine Glucose (UA) Urine Ketones Urine Blood Urine Nitrate Urine Bilirubin Urine Urobilinogen Ur Leukocyte Esterase Urine RBC Urine WBC Ur Epithelial Cells Amorphous Sediment Urine Bacteria Influenza Typ A,B (EIA) 04/29/18 04/30/18 04/30/18 20:59 00:34 06:00 WBC RBC Hgb Hct MCV MCH MCHC RDW Plt Count MPV Neut % (Auto) Lymph % (Auto) Randall % (Auto) Eos % (Auto) Baso % (Auto) Lymph # (Auto) Randall # (Auto) Eos # (Auto) Baso # (Auto) Absolute Neuts (auto) APTT pCO2 35 pO2 144.0 H HCO3 15.7 L ABG pH 7.26 L ABG Total CO2 16.8 L ABG O2 Saturation 99.3 H ABG O2 Content 14.6 L ABG Base Excess -10.5 L ABG Hemoglobin 10.5 L ABG Carboxyhemoglobin 1.6 H POC ABG HHb (Measured) 0.7 ABG Methemoglobin 0.7 ABG O2 Capacity 14.7 L ABG Potassium Hgb O2 Saturation 96.9 Glucose Lactate FiO2 40.0 PEEP Pressure Support Sodium Potassium Chloride Carbon Dioxide Anion Gap BUN Creatinine Est GFR ( Amer) Est GFR (Non-Af Amer) POC Glucose (mg/dL) 248 H 219 H Random Glucose Calcium Total Bilirubin AST ALT Alkaline Phosphatase Total Protein Albumin Globulin Albumin/Globulin Ratio Procalcitonin Arterial Blood Potassium Urine Color Urine Appearance Urine pH Ur Specific [place] Urine Protein Urine Glucose (UA) Urine Ketones Urine Blood Urine Nitrate Urine Bilirubin Urine Urobilinogen Ur Leukocyte Esterase Urine RBC Urine WBC Ur Epithelial Cells Amorphous Sediment Urine Bacteria Influenza Typ A,B (EIA) 04/30/18 04/30/18 04/30/18 06:50 06:50 06:50 WBC 38.1 H* D RBC 2.73 L Hgb 8.1 L Hct 25.1 L MCV 91.9 MCH 29.7 MCHC 32.3 RDW 14.0 Plt Count 301 MPV 10.0 Neut % (Auto) 86.0 H Lymph % (Auto) 11.5 L Randall % (Auto) 2.5 Eos % (Auto) 0.0 L Baso % (Auto) 0.0 Lymph # (Auto) 4.4 H Randall # (Auto) 1.0 H Eos # (Auto) 0.0 Baso # (Auto) 0.01 Absolute Neuts (auto) 32.77 H APTT 60.9 H pCO2 pO2 HCO3 ABG pH ABG Total CO2 ABG O2 Saturation ABG O2 Content ABG Base Excess ABG Hemoglobin ABG Carboxyhemoglobin POC ABG HHb (Measured) ABG Methemoglobin ABG O2 Capacity ABG Potassium Hgb O2 Saturation Glucose Lactate FiO2 PEEP Pressure Support Sodium 143 Potassium 4.2 Chloride 114 H Carbon Dioxide 17 L Anion Gap 16 BUN 60 H Creatinine 2.8 H Est GFR ( Amer) 19 Est GFR (Non-Af Amer) 16 POC Glucose (mg/dL) Random Glucose 239 H Calcium 7.0 L Total Bilirubin 0.6 AST 335 H D ALT 53 Alkaline Phosphatase 109 Total Protein 5.8 Albumin 2.8 L Globulin 3.0 Albumin/Globulin Ratio 0.9 L Procalcitonin Arterial Blood Potassium Urine Color Urine Appearance Urine pH Ur Specific [place] Urine Protein Urine Glucose (UA) Urine Ketones Urine Blood Urine Nitrate Urine Bilirubin Urine Urobilinogen Ur Leukocyte Esterase Urine RBC Urine WBC Ur Epithelial Cells Amorphous Sediment Urine Bacteria Influenza Typ A,B (EIA) 0104/30/18 04/30/18 06:51 11:08 12:00 WBC RBC Hgb Hct MCV MCH MCHC RDW Plt Count MPV Neut % (Auto) Lymph % (Auto) Randall % (Auto) Eos % (Auto) Baso % (Auto) Lymph # (Auto) Randall # (Auto) Eos # (Auto) Baso # (Auto) Absolute Neuts (auto) APTT pCO2 35 pO2 106.0 H HCO3 15.3 L ABG pH 7.25 L ABG Total CO2 16.4 L ABG O2 Saturation 98.4 H ABG O2 Content ABG Base Excess -11.0 L ABG Hemoglobin ABG Carboxyhemoglobin POC ABG HHb (Measured) ABG Methemoglobin ABG O2 Capacity ABG Potassium 3.9 Hgb O2 Saturation Glucose 273 H Lactate 1.2 FiO2 35.0 PEEP 5 Pressure Support 5 Sodium 141.0 Potassium Chloride 113.0 H Carbon Dioxide Anion Gap BUN Creatinine Est GFR ( Amer) Est GFR (Non-Af Amer) POC Glucose (mg/dL) 242 H 292 H Random Glucose Calcium Total Bilirubin AST ALT Alkaline Phosphatase Total Protein Albumin Globulin Albumin/Globulin Ratio Procalcitonin Arterial Blood Potassium 3.9 Urine Color Urine Appearance Urine pH Ur Specific [place] Urine Protein Urine Glucose (UA) Urine Ketones Urine Blood Urine Nitrate Urine Bilirubin Urine Urobilinogen Ur Leukocyte Esterase Urine RBC Urine WBC Ur Epithelial Cells Amorphous Sediment Urine Bacteria Influenza Typ A,B (EIA) 04/30/18 04/30/18 15:50 16:01 WBC RBC Hgb Hct MCV MCH MCHC RDW Plt Count MPV Neut % (Auto) Lymph % (Auto) Randall % (Auto) Eos % (Auto) Baso % (Auto) Lymph # (Auto) Randall # (Auto) Eos # (Auto) Baso # (Auto) Absolute Neuts (auto) APTT pCO2 pO2 HCO3 ABG pH ABG Total CO2 ABG O2 Saturation ABG O2 Content ABG Base Excess ABG Hemoglobin ABG Carboxyhemoglobin POC ABG HHb (Measured) ABG Methemoglobin ABG O2 Capacity ABG Potassium Hgb O2 Saturation Glucose Lactate FiO2 PEEP Pressure Support Sodium Potassium Chloride Carbon Dioxide Anion Gap BUN Creatinine Est GFR ( Amer) Est GFR (Non-Af Amer) POC Glucose (mg/dL) Random Glucose Calcium Total Bilirubin AST ALT Alkaline Phosphatase Total Protein Albumin Globulin Albumin/Globulin Ratio Procalcitonin Arterial Blood Potassium Urine Color Dark yellow Urine Appearance Sl cloudy Urine pH 6.0 Ur Specific [place] >= 1.030 Urine Protein 30 H Urine Glucose (UA) Negative Urine Ketones Trace H Urine Blood Large H Urine Nitrate Negative Urine Bilirubin Negative Urine Urobilinogen 0.2 Ur Leukocyte Esterase Trace H Urine RBC 25 - 30 H Urine WBC 5 - 10 H Ur Epithelial Cells 6 - 8 H Amorphous Sediment Small Urine Bacteria Trace Influenza Typ A,B (EIA) Negative for flu a/b Radiology Impressions: Radiology Impressions Chest X-Ray 04/30/18 06:00 IMPRESSION: No active disease. Head CT 04/30/18 10:53 IMPRESSION: No evidence of acute infarct. Age related atrophy and chronic white matter ischemic change. 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 Chest/Abdomen/Pelvis CT 04/30/18 13:06 IMPRESSION: Large collection of fluid and gas most likely within the uterus, measuring up to 9.7 cm in diameter. Concerning for cervical/endometrial stenosis from neoplasm. Further evaluation is advised. Masters catheter noted within decompressed bladder. Cholelithiasis without evidence of cholecystitis. No pulmonary infiltrate. Endotracheal tube and nasogastric tube noted. Minor findings as above. To be due to Critical Care Progress Note - Nutrition Nutrition: Nutrition Category Date Time Status NPO Diet [DIET] Diets 04/29/18 Breakfast Ordered Attending/Attestation - Attestation I have personally seen and examined this patient.: Yes I have fully participated in the care of the patient.: Yes I have reviewed all pertinent clinical information: Yes Notes (Text): 04/30/18 16:[address] Connell note
[2018-04-30] MEDS ORDERED: EPINEPHrine- 1 MG in Sodium Chloride 0.9% 50 ML IV PRN (10:36)
--- NOTE | 2018-04-30 10:36 | PN ---
SUBJECTIVE: The patient was seen and examined at bedside in the CCU. She remains intubated, sedated and on vasopressor support. OBJECTIVE: VITAL SIGNS: Temperature 98.1, pulse 100, blood pressure 107/58, respiratory rate 20, oxygen saturation 100% on 40% FIO2. GENERAL: Intubated and sedated. HEENT: PERRL. No scleral icterus. ETT in place. OGT in place. NECK: No JVD. LUNGS: Coarse, transmitted upper airway sounds with scattered rhonchi. CARDIOVASCULAR: Regular rate and rhythm. Normal S1 and S2. Grade II/ KERMIT to LLSB. ABDOMEN: Normoactive bowel sounds. Soft, nondistended. EXTREMITIES: No edema. Left ankle with River wrapping in place. NEUROLOGIC: Sedated. LABORATORY DATA: WBC is 38 with 86% neutrophils, hemoglobin 8, hematocrit 25, platelets 301. Sodium 143, potassium 4.2, chloride 114, bicarb 17, BUN 60, creatinine 2.8, glucose 239. AST 335, ALT 53. Procalcitonin 27. Blood cultures negative. Urine culture with E. coli and sensitivities noted. ASSESSMENT: The patient is an 88-year-old woman with a past medical history of Parkinson disease with recurrent falls who was initially admitted to the general medical [facility] s/p mechanical fall with resultant left ankle fracture whose hospital course was complicated by NSTEMI with PEA arrest and who was subsequently transferred to the CCU for continued care. PLAN: 1. PEA arrest. The patient remains intubated in the CCU. Continue with care as per CCU. 2. Acute hypoxic respiratory failure. Continue with care as per Dr. Aguilar and the CCU team. Weaning trials as tolerated. 3. NSTEMI. Input from Dr. Page noted. The patient remains on Heparin drip, Aspirin 81 mg p.o. daily and Plavix 75 mg p.o. daily. Continue with care as per Dr. Page. 4. Acute systolic heart failure. TTE reviewed. Continue with ionotropic support and vasopressors. 5. Septic shock, likely secondary to UTI. Input from Dr. Becker noted. Procalcitonin markedly elevated. Continue with antimicrobials as per Dr. Becker. Continue with vasopressor support. Continue to monitor for fever and leukocytosis. 6. LILIAN, etiology likely secondary to ATN. Continue with inotropic support and gentle IV fluid hydration. Continue to monitor strict I&O's, renally dose medications and avoid nephrotoxins. 7. Transaminitis, the etiology likely secondary to shock liver in the setting of PEA arrest, resolving. Continue to monitor CMP daily. 8. Acute fracture of the distal left fibula. Input from Dr. Hendrix noted and no need for acute surgical intervention. Continue with conservative medical management. 9. Non-insulin dependent diabetes mellitus. Most recent A1c of 7.2. Continue medium-dose insulin sliding scale for coverage. 10. Parkinson disease. Continue Stalevo 150 mg p.o. t.i.d. 11. Anemia of chronic disease. Continue to monitor CBC and transfuse as needed. 12. Hypertension. Antihypertensives remain on hold. Continue to monitor hemodynamics and wean off vasopressor support as tolerated. 13. History of gastric cancer s/p subtotal gastrectomy. 14. History of chronic lymphocytic leukemia. 15. Prophylaxis. Continue Protonix for GI prophylaxis. DVT prophylaxis not indicated as the patient is on Heparin drip. CODE STATUS: Full code. Antonio Devi MD MTDRich
[2018-04-30] MEDS ORDERED: Sodium Bicarbonate 8.4% 150 MEQ in Dextrose 5% In Water 1,000 ML IV SCH (11:00)
[2018-04-30] MEDS ORDERED: Vancomycin 1.5 GM in Sodium Chloride 0.9% 500 ML IVPB ONE (11:01)
--- NOTE | 2018-04-30 11:05 | CP.PCM.PN ---
Subjective - Date & Time of Evaluation Date of Evaluation: 04/30/18 Time of Evaluation: 10:50 - Subjective Subjective: Patient continues to be on the ventilator, no fevers overnight, still on vasopressor support. Not very responsive to tactile stimuli. Objective - Vital Signs/Intake and Output Vital Signs (last 24 hours): Temp Pulse Resp BP Pulse Ox 98.1 F 86 20 107/58 L 91 L 04/29/18 22:00 04/29/18 22:00 04/29/18 22:00 04/30/18 00:41 04/29/18 18:30 Intake and Output: 04/29/18 04/30/18 18:59 06:59 Intake Total 226 1821 Output Total 425 Balance 226 1396 - Medications Medications: Current Medications Acetaminophen (Tylenol 325mg Tab) 650 mg PO Q6H PRN PRN Reason: Fever >100.4 F Last Admin: 04/28/18 01:29 Dose: 650 mg Albuterol/Ipratropium (Duoneb 3 Mg/0.5 Mg (3 Ml) Ud) 3 ml IH [id number] PRN PRN Reason: Shortness of Breath Last Admin: 04/29/18 14:06 Dose: 3 ml Aspirin (Aspirin Chewable) 81 mg PO DAILY [facility] Last Admin: 04/29/18 10:33 Dose: 81 mg Carbidopa/Levodopa/Entacapone (Stalevo 150) 1 tab PO TID [facility] Last Admin: 04/29/18 17:04 Dose: 1 tab Clopidogrel Bisulfate (Plavix) 75 mg PO DAILY [facility] Last Admin: 04/29/18 10:33 Dose: 75 mg Dextrose (Dextrose 50% Inj) 0 ml IV STAT PRN; Protocol PRN Reason: Hypoglycemia Protocol Docusate Sodium (Colace) 100 mg PO BID [facility] Last Admin: 04/29/18 10:33 Dose: 100 mg Glyburide (Micronase) 5 mg PO 0800,1700 [facility] Last Admin: 04/29/18 08:22 Dose: 5 mg Hydrocortisone Sodium Succinate (Solu-Cortef) 50 mg IVP Q6H [facility] Last Admin: 04/30/18 05:50 Dose: 50 mg Heparin Sodium/Sodium Chloride (Heparin 81683 Units/250ml 1/2 Normal Saline) 25,000 units in 250 mls @ 7.588 mls/hr IV .Q24H [facility]; Protocol Last Admin: 04/30/18 05:57 Dose: 12 units/kg/hr, 7.588 mls/hr Propofol (Diprivan) 1,000 mg in 100 mls @ 1.897 mls/hr IV .Q24H PRN; Protocol PRN Reason: TITRATE PER MD ORDER Last Titration: 04/29/18 03:30 Dose: 0 mcg/kg/min, 0 mls/hr Aztreonam (Azactam 1 Gm) 100 mls @ 100 mls/hr IVPB Q8 [facility]; Protocol Stop: 05/06/18 09:46 Last Admin: 04/30/18 05:50 Dose: 100 mls/hr Dobutamine HCl/Dextrose (Dobutamine/Dextrose 5% 500mg/250ml) 500 mg in 250 mls @ 4.742 mls/hr IV .Q24H PRN; Protocol PRN Reason: TITRATE PER PROTOCOL Last Admin: 04/29/18 14:14 Dose: 2.5 mcg/kg/min, 4.742 mls/hr NOREPINEPHRINE BIT/0.9 % NACL (Levophed 4 Mg/ 250 Ml Ns Premixed) 4 mg in 250 mls @ 15 mls/hr IV .[id number] PRN; Protocol PRN Reason: TITRATE PER MD ORDER Last Admin: 04/30/18 02:46 Dose: 4 mcg/min, 15 mls/hr Fentanyl Citrate (Fentanyl Citrate/Sodium Chloride 1 Mg/100 Ml) 1,000 mcg in 100 mls @ 7.5 mls/hr IV .[id number] PRN; Protocol PRN Reason: TITRATE PER MD ORDER Last Admin: 04/29/18 22:21 Dose: 100 mcg/hr, 10 mls/hr Dextrose (Dextrose 5% In Water 1000 Ml) 1,000 mls @ 0 mls/hr IV .Q0M PRN; Protocol PRN Reason: Hypoglycemia Protocol Vasopressin 20 units/ Sodium (Chloride) 101 mls @ 9.09 mls/hr IV .[id number] [facility]; Protocol Last Admin: 04/30/18 00:41 Dose: 9.09 mls/hr Midazolam 100 mg/100ml in NS (Midazolam 100 Mg/100ml In Ns) 100 mg in 100 mls @ 1 mls/hr IV .Q24H PRN; Protocol PRN Reason: Agitation Last Admin: 04/30/18 04:29 Dose: 1 mg/hr, 1 mls/hr Insulin Human Lispro (Humalog Med) 0 units SC Q6H [facility]; Protocol Last Admin: 04/30/18 00:39 Dose: Not Given Lisinopril (Zestril) 10 mg PO DAILY [facility] Last Admin: 04/29/18 10:25 Dose: Not Given Metoprolol Tartrate (Lopressor) 25 mg PO BID [facility] Last Admin: 04/29/18 10:25 Dose: Not Given Midazolam HCl (Versed Inj) 5 mg IVP Q5H PRN PRN Reason: Agitation Last Admin: 04/30/18 01:51 Dose: 5 mg Morphine Sulfate (Morphine) 0.5 mg IVP Q4 PRN PRN Reason: Pain, moderate (4-7) Last Admin: 04/28/18 01:27 Dose: 0.5 mg Nicotine (Nicoderm Cq) 1 patch TD DAILY [facility] Last Admin: 04/29/18 10:35 Dose: 1 patch Pantoprazole Sodium (Protonix Inj) 40 mg IVP DAILY [facility] Last Admin: 04/29/18 10:36 Dose: 40 mg Sitagliptin Phosphate (Januvia) 50 mg PO DAILY [facility] Last Admin: 04/29/18 10:36 Dose: 50 mg Zolpidem Tartrate (Ambien) 5 mg PO HS PRN; Protocol PRN Reason: Insomnia Last Admin: 04/28/18 22:12 Dose: 5 mg - Labs Labs: 04/29/18 14:00 04/29/18 14:00 PT 18.7 SECONDS (9.4-12.5) H 04/29/18 14:00 INR 1.68 04/29/18 14:00 APTT 58.9 Seconds (26.9-38.3) H 04/29/18 14:00 - Constitutional Appears: Chronically Ill, Other (intubated) - Head Exam Head Exam: NORMAL INSPECTION - ENT Exam Additional comments: ET tube in place - Neck Exam Additional comments: right IJ TLC in place - Respiratory Exam Respiratory Exam: Decreased Breath Sounds - Cardiovascular Exam Cardiovascular Exam: +S1, +S2 - GI/Abdominal Exam GI & Abdominal Exam: Soft. absent: Tenderness - Extremities Exam Additional comments: left foot with dressings in place Assessment and Plan - Assessment and Plan (Free Text) Plan: Assessment SIRS with fevers and leukocytosis, VDRF, R/O sepsis in this patient S/P cardiac arrest, with left leg fracture, so far no source identified history of sepsis with E. 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 Connell patient remains in critical condition
--- NOTE | 2018-04-30 11:26 | PN ---
DATE: 04/30/2018(700am-750am) SUBJECTIVE: The patient remains on the ventilator. She is sedated. PHYSICAL EXAMINATION: VITAL SIGNS: (Last noted in the computer): Temperature is 98.1, pulse is 86, respiratory rate 20/14, last blood pressure recorded in the chart - 107/58. HEENT: Normocephalic, atraumatic. No JVD. CARDIOVASCULAR: Systolic ejection murmur at the lower left sternal border. Questionable S3 gallop. LUNGS: Minimal crackles at the bases. Minimal/less rhonchi. No wheezing. EXTREMITIES: No clubbing, cyanosis or edema. GASTROINTESTINAL: Abdomen is soft, nondistended. Bowel sounds are positive. SKIN: No acute rash. NEUROLOGIC: Exam limited at the present time. PERTINENT LABORATORY DATA: Chest x-ray was done this morning and reviewed. The chest x-ray is improved-- with decreased pulmonary vascular congestion. Arterial blood gas was done on PRVC 14, tidal volume 400, FIO2 of 40%. Results are: PH 7.26, pCO2 of 35, pO2 of 144. IMPRESSION: 1. Respiratory failure. 2. Status post code blue. 3. Acute myocardial infarction. 4. Acute congestive heart failure. 5. Chronic obstructive pulmonary disease. 6. Anemia. PLAN: The patient remains in the ICU and on the ventilator. She is currently sedated. I did discuss the case with the night nurse at length. Unfortunately, the night nurse did inform me that he had to increase the dosage of Levophed during his shift. I did review the chest x-ray as above. The chest x-ray is improved with decreased pulmonary vascular congestion. I have also reviewed the arterial blood gas. There is a mild metabolic acidosis noted, with a [id number] increase in the alveolar-arterial gradient. I would continue with the current ventilator settings for now. I would continue with the treatment for acute myocardial infarction and congestive heart failure as per Cardiology. Input by Dr. Page is noted. Inputs by Infectious Disease and Neurology are also noted. The patient remains critically ill with very guarded prognosis. I will discuss the above with the entire ICU team in the next few moments. I will also discuss the above with the attending physician later this morning. Burton Aguilar MD [facility] # [id number] MTDD
[2018-04-30] MEDS ORDERED: Insulin Lispro (HUMAlog) HIGH Coverage SC SCH (11:30)
[2018-04-30 12:10] LABS: ARTERIAL BLOOD GAS HCO3 15.3 mmol/L (21-28); ARTERIAL BLOOD GAS O2 SAT 98.4 % (95-98); ARTERIAL BLOOD GAS PCO2 35 mm/Hg (35-45); ARTERIAL BLOOD GAS PH 7.25 (7.35-7.45); ARTERIAL BLOOD GAS TCO2 16.4 mmol.L (22-28)
--- NOTE | 2018-04-30 14:58 | PN ---
DATE: 04/30/2018 SUBJECTIVE: The patient is seen and examined at bedside. She is off sedation since morning. She is on norepinephrine 20 mcg per minute. She is on amiodarone drip started for SVT of 140-150 on the monitor. PHYSICAL EXAMINATION VITAL SIGNS: Currently, her heart rate is 101 and appears to be regular. Temperature 98.2, end-tidal CO2 on the monitor 33, respiratory rate 13, oxygen saturation 99%. The patient is on PRBC 400/14/5/40. The patient is also on vasopressin 0.03 units per minute. Blood pressure is 76/50. (The patient had norepinephrine increased from 16-20. A-line will be placed and epinephrine will be started). ENT: Head and neck atraumatic. LUNGS: Clear to auscultation bilaterally. HEART: Regular rate and rhythm. S1 and S2 normal. ABDOMEN: Soft, nontender, nondistended. MUSCULOSKELETAL: Trace bilateral pedal and ankle edema. NEUROLOGIC: The patient currently is not responding to verbal stimuli. SKIN: Moist. PSYCHIATRIC: The patient is not responding to verbal stimuli. LABORATORY DATA: WBC is 38.1, hemoglobin 8.1, platelet count 301. Sodium 143, potassium 4.2, chloride 114, carbon dioxide 17, BUN 60, creatinine 2.8 down from 3, glucose 242, calcium 7. AST 335 down from 937, total bilirubin 0.6. ABG 7.26, pCO2 of 35, pO2 of 144 on 40% FIO2. MEDICATIONS: Tylenol p.r.n., DuoNeb p.r.n., amiodarone drip, aspirin, aztreonam, carbidopa and levodopa, Plavix. Dobutamine is on hold. Epinephrine will be started. Fentanyl and midazolam is on hold. Heparin drip is on hold in anticipation of A-line placement. Hydrocortisone 50 mg IV every 6 hours, insulin sliding scale medium protocol, midazolam p.r.n., morphine p.r.n., norepinephrine, Protonix. Chest x-ray showed no active pulmonary disease, right IJ endotracheal tube and NG tube is in right position. Head CT showed no significant interval change in diffuse cerebral atrophy and chronic lobar infarction as discussed in official report. No definite acute intracranial findings. ASSESSMENT AND PLAN: This is an 88-year-old lady with refractory shock whether due to cardiogenic origin in the setting of non-ST elevated myocardial infarction or distributive shock, which may or may not be secondary to infectious etiology (the patient did have fever and leukocytosis). The patient is on antibiotics and ID service is following her as well. At present time, we will proceed with continued hemodynamic support with norepinephrine, epinephrine, vasopressin. We will put the A-line. Epinephrine will provide ionotropic and vasopressor support. patient didnt tolerate dobutamine as HR went up to 120. The patient also has metabolic acidosis and I will start the patient on bicarb drip as well. We will continue with low to intermediate tidal volume ventilation and maintain plateau pressure less than 25 to avoid barotrauma. We will continue with sedation vacation and daily weaning trials. We will continue with oral hygiene, head of bed elevated more then 35 degrees, GI and DVT prophylaxis. Once shock resolved, conservative fluid management will be in order. Conservative oxygen management as well. We will continue with n.p.o. for now. We will order EEG and CT head to repeat as the patient does not appear to wake up appropriately after sedation was held. We will maintain blood glucose within 140-180 range according to night sugar trial. We will continue with stress dose steroids. Renal function appears to be doing better. She had 600 mL of urine output over the last night and creatinine is trended down. Addendum: blood culture came back positive for GNR in blood and E. coli in the urine. CT chest/abdomen and pelvis done-->no pulm infiltrate, CT abdo/pelvis showed: large fluid and gas collection within uterus, concerning for obstruction by neoplasm-->will get in touch with coating operator service to elaborate on that finding further. Meanwhile will continue with aztreonam. Spoke with Dr. Becker-->will give a dose of aminoglycosides in addition. As patient deteriorates hemodynamically despite support with three pressors and stress dose steroids, will give thiamine 200 mg IV q12 and Vit C 1.5 gm IV q6 as a rescue for refractory possibly septic shock ccm time 40 min Yonny Connell MD MTD
[2018-04-30] MEDS ORDERED: SODIUM BICARBONATE IV SCH (15:15)
[2018-04-30] MEDS ORDERED: SODIUM CHLORIDE 0.45% IV SCH (15:15)
--- NOTE | 2018-04-30 15:20 | CP.PCM.CON ---
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 Maintain hemodynamics stable. Avoid hypotension. Patient not on ACEI/ARB due to recent LILIAN Monitor Input/Output, daily weights and renal function with basic metabolic panel continue with IVF but change to 0.45% saline with 75 meq bicarb @ 100 ml/hr instead of D5w due to diabetic status and hyperglycemia once UTI better, check urine spot protein/creatinine, albumin/creatinine ratio. once stable then will do renal sonogram Dose meds/antibiotics for reduced GFR. Avoid fleets enema/magnesium based laxatives. Avoid nephrotoxins/NSAIDs/ iodinated contrast (unless needed emergently) Glycemic control Further work up/management as per primary team Thanks for allowing me to participate in care of your patient. Will follow patient with you. Please call if any Qs. had d/w team and family bedside Dr Gutierrez [place] Office: [phone] Chief Complaint; unable to obtain source of Info: EMR Reason for consult: Acute Kidney Injury HPI: Pt is a 88 F with hx of DM (years), HTN carotid artery disease, CLL, gastric cancer, parkinson disease CKD 3 with baseline cr 1.4 in 2018 presented with complaints of fall, ankle fracture, being managed for sepsis shock, UTI, cardiac arrest and NSTEMI. Denies OTC/herbal meds or NSAIDs No recent iodinated contrast exposure. Noted obvious episodes of low BP (SBP in 60s). renal consult for LILIAN. family not aware of renal disease in past ROS: pt not able to communicate as orally intubated sedated. hypotensive Physical Examination: General Appearance: Comfortable, in no acute respiratory distress, orally intuabted ill appearing . maintaining O2 sat Vitals reviewed and noted as below Head; Atraumatic, normocephalic ENT: no ulcers no thrush. Tongue is midline. Oropharynx: no rash or ulcers. EYES: Pupils are equal, round Sclera is anicteric. Neck; supple no lymphadenopathy, no thyromegaly or bruit Lungs: Normal respiratory rate/effort. Breath sounds bilateral equal and clear anteriorly Heart: Normal rate. s1s2 normal. No rub or gallop. Extremities: no edema. No varicose veins Neurological: Patient is sedated Skin: Warm and dry. Normal turgor. No rash. Palpitation: Normal elasticity for age Abdomen: Abdomen is soft. Bowel sounds +. There is no abdominal tenderness, no guarding/rigidity no organomegaly Psych: unable MSK: no joint tenderness or swelling. Digits and nails normal, no deformity : kidney or bladder not palpable. has klein Labs/imaging reviewed. Past medical history, past surgical history, family history, social history, allergy reviewed and noted as below Family hx: no hx of CKD. Rest non-contributory Past Patient History - Infectious Disease Hx of Infectious Diseases: None - Tetanus Immunizations Tetanus Immunization: Unknown - Past Social History Smoking Status: Current Some Days Smoker - CARDIAC Hx Cardiac Disorders: Yes Hx Hypertension: Yes Other/Comment: [place], Heart surgery - PULMONARY Hx Respiratory Disorders: No - NEUROLOGICAL Hx Neurological Disorder: Yes Hx Dementia: Yes Hx Parkinson's Disease: Yes Hx Transient Ischemic Attacks (TIA): Yes - HEENT Hx HEENT Problems: No - RENAL Hx Chronic Kidney Disease: Yes - ENDOCRINE/METABOLIC Hx Endocrine Disorders: Yes Hx Diabetes Mellitus Type 2: Yes - HEMATOLOGICAL/ONCOLOGICAL Hx Blood Disorders: Yes Hx Anemia: Yes Hx Cancer: Yes - INTEGUMENTARY Hx Dermatological Problems: Yes Hx Basil Cell: Yes - MUSCULOSKELETAL/RHEUMATOLOGICAL Hx Musculoskeletal Disorders: Yes Hx Arthritis: Yes Hx Falls: Yes Hx Fractures: Yes Hx Osteoporosis: Yes Hx Unsteady Gait: Yes - GASTROINTESTINAL Hx Gastrointestinal Disorders: Yes Hx Diverticulitis: Yes Hx Gastroesophageal Reflux: Yes Other/Comment: Gastric Cancer - GENITOURINARY/GYNECOLOGICAL Hx Urinary Tract Infection: Yes - PSYCHIATRIC Hx Psychophysiologic Disorder: Yes Hx Anxiety: Yes Hx Depression: Yes Hx Substance Use: No - SURGICAL HISTORY Hx Surgeries: Yes Hx Coronary Stent: Yes Hx Open Heart Surgery: Yes - ANESTHESIA Hx Anesthesia Reactions: No Hx Malignant Hyperthermia: No Meds Allergies/Adverse Reactions: Allergies Allergy/AdvReac Type Severity Reaction Status Date / Time Penicillins Allergy ANAPHYLAXIS Verified 03/26/16 16:56 Sulfa (Sulfonamide Allergy ANAPHYLAXIS Verified 03/26/16 16:56 Antibiotics) - Medications Medications: Current Medications Acetaminophen (Tylenol 325mg Tab) 650 mg PO Q6H PRN PRN Reason: Fever >100.4 F Last Admin: 04/28/18 01:29 Dose: 650 mg Albuterol/Ipratropium (Duoneb 3 Mg/0.5 Mg (3 Ml) Ud) 3 ml IH [id number] PRN PRN Reason: Shortness of Breath Last Admin: 04/29/18 14:06 Dose: 3 ml Aspirin (Aspirin Chewable) 81 mg PO DAILY [facility] Last Admin: 04/30/18 10:54 Dose: 81 mg Carbidopa/Levodopa/Entacapone (Stalevo 150) 1 tab PO TID [facility] Last Admin: 04/30/18 13:51 Dose: Not Given Clopidogrel Bisulfate (Plavix) 75 mg PO DAILY [facility] Last Admin: 04/30/18 09:48 Dose: 75 mg Dextrose (Dextrose 50% Inj) 0 ml IV STAT PRN; Protocol PRN Reason: Hypoglycemia Protocol Docusate Sodium (Colace) 100 mg PO BID [facility] Last Admin: 04/29/18 10:33 Dose: 100 mg Glyburide (Micronase) 5 mg PO 0800,1700 [facility] Last Admin: 04/29/18 08:22 Dose: 5 mg Hydrocortisone Sodium Succinate (Solu-Cortef) 50 mg IVP Q6H [facility] Last Admin: 04/30/18 13:53 Dose: 50 mg Heparin Sodium/Sodium Chloride (Heparin 82193 Units/250ml 1/2 Normal Saline) 25,000 units in 250 mls @ 7.588 mls/hr IV .Q24H STEVEN; Protocol Last Titration: 04/30/18 10:41 Dose: 0 units/kg/hr, 0 mls/hr Propofol (Diprivan) 1,000 mg in 100 mls @ 1.897 mls/hr IV .Q24H PRN; Protocol PRN Reason: TITRATE PER MD ORDER Last Titration: 04/29/18 03:30 Dose: 0 mcg/kg/min, 0 mls/hr Aztreonam (Azactam 1 Gm) 100 mls @ 100 mls/hr IVPB Q8 STEVEN; Protocol Stop: 05/06/18 09:46 Last Admin: 04/30/18 13:53 Dose: 100 mls/hr Dobutamine HCl/Dextrose (Dobutamine/Dextrose 5% 500mg/250ml) 500 mg in 250 mls @ 4.742 mls/hr IV .Q24H PRN; Protocol PRN Reason: TITRATE PER PROTOCOL Last Admin: 04/29/18 14:14 Dose: 2.5 mcg/kg/min, 4.742 mls/hr NOREPINEPHRINE BIT/0.9 % NACL (Levophed 4 Mg/ 250 Ml Ns Premixed) 4 mg in 250 mls @ 15 mls/hr IV .[id number] PRN; Protocol PRN Reason: TITRATE PER MD ORDER Last Admin: 04/30/18 14:48 Dose: 20 mcg/min, 75 mls/hr Fentanyl Citrate (Fentanyl Citrate/Sodium Chloride 1 Mg/100 Ml) 1,000 mcg in 100 mls @ 7.5 mls/hr IV .[id number] PRN; Protocol PRN Reason: TITRATE PER MD ORDER Last Admin: 04/29/18 22:21 Dose: 100 mcg/hr, 10 mls/hr Dextrose (Dextrose 5% In Water 1000 Ml) 1,000 mls @ 0 mls/hr IV .Q0M PRN; Protocol PRN Reason: Hypoglycemia Protocol Vasopressin 20 units/ Sodium (Chloride) 101 mls @ 9.09 mls/hr IV .Q11H7M STEVEN; Protocol Last Admin: 04/30/18 10:37 Dose: 9.09 mls/hr Midazolam 100 mg/100ml in NS (Midazolam 100 Mg/100ml In Ns) 100 mg in 100 mls @ 1 mls/hr IV .Q24H PRN; Protocol PRN Reason: Agitation Last Admin: 04/30/18 04:29 Dose: 1 mg/hr, 1 mls/hr Amiodarone HCl/Dextrose (Nexterone 360 Mg In D5w 200 Ml (Premix)) 360 mg in 200 mls @ 33.333 mls/hr IV .Q6H STEVEN; Protocol Last Admin: 04/30/18 09:37 Dose: 33.333 mls/hr Epinephrine HCl 1 mg/ Sodium (Chloride) 51 mls @ 15.3 mls/hr IV .Q3H20M PRN; Protocol PRN Reason: TITRATE PER MD ORDER Sodium Bicarbonate 75 meq/ (Sodium Chloride) 1,075 mls @ 100 mls/hr IV .[id number] [facility] Insulin Human Lispro (Humalog High) 0 units SC Q6 [facility]; Protocol Lisinopril (Zestril) 10 mg PO DAILY [facility] Last Admin: 04/29/18 10:25 Dose: Not Given Metoprolol Tartrate (Lopressor) 25 mg PO BID [facility] Last Admin: 04/29/18 10:25 Dose: Not Given Midazolam HCl (Versed Inj) 5 mg IVP Q5H PRN PRN Reason: Agitation Last Admin: 04/30/18 01:51 Dose: 5 mg Morphine Sulfate (Morphine) 0.5 mg IVP Q4 PRN PRN Reason: Pain, moderate (4-7) Last Admin: 04/28/18 01:27 Dose: 0.5 mg Nicotine (Nicoderm Cq) 1 patch TD DAILY [facility] Last Admin: 04/29/18 10:35 Dose: 1 patch Pantoprazole Sodium (Protonix Inj) 40 mg IVP DAILY [facility] Last Admin: 04/30/18 09:48 Dose: 40 mg Zolpidem Tartrate (Ambien) 5 mg PO HS PRN; Protocol PRN Reason: Insomnia Last Admin: 04/28/18 22:12 Dose: 5 mg Results - Vital Signs Recent Vital Signs: Last Vital Signs Temp 98.6 F 04/30/18 14:45 Pulse 92 H 04/30/18 14:45 Resp 20 04/29/18 22:00 BP 92/52 L 04/30/18 14:45 Pulse Ox 99 04/30/18 14:45 - Labs Result Diagrams: 04/30/18 06:50 04/30/18 06:50 Labs: Laboratory Results - last 24 hr 04/26/18 04/28/18 04/28/18 20:07 08:35 11:22 WBC RBC Hgb Hct MCV MCH MCHC RDW Plt Count MPV Neut % (Auto) Lymph % (Auto) Coffey % (Auto) Eos % (Auto) Baso % (Auto) Lymph # (Auto) Coffey # (Auto) Eos # (Auto) Baso # (Auto) Absolute Neuts (auto) APTT pCO2 pO2 HCO3 ABG pH ABG Total CO2 ABG O2 Saturation ABG O2 Content ABG Base Excess ABG Hemoglobin ABG Carboxyhemoglobin POC ABG HHb (Measured) ABG Methemoglobin ABG O2 Capacity ABG Potassium Hgb O2 Saturation Glucose Lactate FiO2 PEEP Pressure Support Sodium Potassium Chloride Carbon Dioxide Anion Gap BUN Creatinine Est GFR ( Amer) Est GFR (Non-Af Amer) POC Glucose (mg/dL) 199 H 368 H 258 H Random Glucose Calcium Total Bilirubin AST ALT Alkaline Phosphatase Troponin I Total Protein Albumin Globulin Albumin/Globulin Ratio Procalcitonin Arterial Blood Potassium 04/28/18 04/28/18 04/29/18 16:34 21:48 06:46 WBC RBC Hgb Hct MCV MCH MCHC RDW Plt Count MPV Neut % (Auto) Lymph % (Auto) Coffey % (Auto) Eos % (Auto) Baso % (Auto) Lymph # (Auto) Coffey # (Auto) Eos # (Auto) Baso # (Auto) Absolute Neuts (auto) APTT pCO2 pO2 HCO3 ABG pH ABG Total CO2 ABG O2 Saturation ABG O2 Content ABG Base Excess ABG Hemoglobin ABG Carboxyhemoglobin POC ABG HHb (Measured) ABG Methemoglobin ABG O2 Capacity ABG Potassium Hgb O2 Saturation Glucose Lactate FiO2 PEEP Pressure Support Sodium Potassium Chloride Carbon Dioxide Anion Gap BUN Creatinine Est GFR ( Amer) Est GFR (Non-Af Amer) POC Glucose (mg/dL) 137 H 140 H 323 H Random Glucose Calcium Total Bilirubin AST ALT Alkaline Phosphatase Troponin I Total Protein Albumin Globulin Albumin/Globulin Ratio Procalcitonin Arterial Blood Potassium 04/29/18 04/29/18 04/29/18 10:40 12:15 14:00 WBC RBC Hgb Hct MCV MCH MCHC RDW Plt Count MPV Neut % (Auto) Lymph % (Auto) Coffey % (Auto) Eos % (Auto) Baso % (Auto) Lymph # (Auto) Coffey # (Auto) Eos # (Auto) Baso # (Auto) Absolute Neuts (auto) APTT pCO2 pO2 HCO3 ABG pH ABG Total CO2 ABG O2 Saturation ABG O2 Content ABG Base Excess ABG Hemoglobin ABG Carboxyhemoglobin POC ABG HHb (Measured) ABG Methemoglobin ABG O2 Capacity ABG Potassium Hgb O2 Saturation Glucose Lactate FiO2 PEEP Pressure Support Sodium Potassium Chloride Carbon Dioxide Anion Gap BUN Creatinine Est GFR ( Amer) Est GFR (Non-Af Amer) POC Glucose (mg/dL) 287 H Random Glucose Calcium Total Bilirubin AST ALT Alkaline Phosphatase Troponin I 12.60 H* Total Protein Albumin Globulin Albumin/Globulin Ratio Procalcitonin 27.27 H Arterial Blood Potassium 04/29/18 04/29/18 04/30/18 16:01 20:59 00:34 WBC RBC Hgb Hct MCV MCH MCHC RDW Plt Count MPV Neut % (Auto) Lymph % (Auto) Coffey % (Auto) Eos % (Auto) Baso % (Auto) Lymph # (Auto) Coffey # (Auto) Eos # (Auto) Baso # (Auto) Absolute Neuts (auto) APTT pCO2 pO2 HCO3 ABG pH ABG Total CO2 ABG O2 Saturation ABG O2 Content ABG Base Excess ABG Hemoglobin ABG Carboxyhemoglobin POC ABG HHb (Measured) ABG Methemoglobin ABG O2 Capacity ABG Potassium Hgb O2 Saturation Glucose Lactate FiO2 PEEP Pressure Support Sodium Potassium Chloride Carbon Dioxide Anion Gap BUN Creatinine Est GFR ( Amer) Est GFR (Non-Af Amer) POC Glucose (mg/dL) 266 H 248 H 219 H Random Glucose Calcium Total Bilirubin AST ALT Alkaline Phosphatase Troponin I Total Protein Albumin Globulin Albumin/Globulin Ratio Procalcitonin Arterial Blood Potassium 04/30/18 04/30/18 04/30/18 06:00 06:50 06:50 WBC 38.1 H* D RBC 2.73 L Hgb 8.1 L Hct 25.1 L MCV 91.9 MCH 29.7 MCHC 32.3 RDW 14.0 Plt Count 301 MPV 10.0 Neut % (Auto) 86.0 H Lymph % (Auto) 11.5 L Coffey % (Auto) 2.5 Eos % (Auto) 0.0 L Baso % (Auto) 0.0 Lymph # (Auto) 4.4 H Coffey # (Auto) 1.0 H Eos # (Auto) 0.0 Baso # (Auto) 0.01 Absolute Neuts (auto) 32.77 H APTT pCO2 35 pO2 144.0 H HCO3 15.7 L ABG pH 7.26 L ABG Total CO2 16.8 L ABG O2 Saturation 99.3 H ABG O2 Content 14.6 L ABG Base Excess -10.5 L ABG Hemoglobin 10.5 L ABG Carboxyhemoglobin 1.6 H POC ABG HHb (Measured) 0.7 ABG Methemoglobin 0.7 ABG O2 Capacity 14.7 L ABG Potassium Hgb O2 Saturation 96.9 Glucose Lactate FiO2 40.0 PEEP Pressure Support Sodium 143 Potassium 4.2 Chloride 114 H Carbon Dioxide 17 L Anion Gap 16 BUN 60 H Creatinine 2.8 H Est GFR ( Amer) 19 Est GFR (Non-Af Amer) 16 POC Glucose (mg/dL) Random Glucose 239 H Calcium 7.0 L Total Bilirubin 0.6 AST 335 H D ALT 53 Alkaline Phosphatase 109 Troponin I Total Protein 5.8 Albumin 2.8 L Globulin 3.0 Albumin/Globulin Ratio 0.9 L Procalcitonin Arterial Blood Potassium 04/30/18 04/30/18 04/30/18 06:50 06:51 11:08 WBC RBC Hgb Hct MCV MCH MCHC RDW Plt Count MPV Neut % (Auto) Lymph % (Auto) Coffey % (Auto) Eos % (Auto) Baso % (Auto) Lymph # (Auto) Coffey # (Auto) Eos # (Auto) Baso # (Auto) Absolute Neuts (auto) APTT 60.9 H pCO2 pO2 HCO3 ABG pH ABG Total CO2 ABG O2 Saturation ABG O2 Content ABG Base Excess ABG Hemoglobin ABG Carboxyhemoglobin POC ABG HHb (Measured) ABG Methemoglobin ABG O2 Capacity ABG Potassium Hgb O2 Saturation Glucose Lactate FiO2 PEEP Pressure Support Sodium Potassium Chloride Carbon Dioxide Anion Gap BUN Creatinine Est GFR ( Amer) Est GFR (Non-Af Amer) POC Glucose (mg/dL) 242 H 292 H Random Glucose Calcium Total Bilirubin AST ALT Alkaline Phosphatase Troponin I Total Protein Albumin Globulin Albumin/Globulin Ratio Procalcitonin Arterial Blood Potassium 04/30/18 12:00 WBC RBC Hgb Hct MCV MCH MCHC RDW Plt Count MPV Neut % (Auto) Lymph % (Auto) Coffey % (Auto) Eos % (Auto) Baso % (Auto) Lymph # (Auto) Coffey # (Auto) Eos # (Auto) Baso # (Auto) Absolute Neuts (auto) APTT pCO2 35 pO2 106.0 H HCO3 15.3 L ABG pH 7.25 L ABG Total CO2 16.4 L ABG O2 Saturation 98.4 H ABG O2 Content ABG Base Excess -11.0 L ABG Hemoglobin ABG Carboxyhemoglobin POC ABG HHb (Measured) ABG Methemoglobin ABG O2 Capacity ABG Potassium 3.9 Hgb O2 Saturation Glucose 273 H Lactate 1.2 FiO2 35.0 PEEP 5 Pressure Support 5 Sodium 141.0 Potassium Chloride 113.0 H Carbon Dioxide Anion Gap BUN Creatinine Est GFR ( Amer) Est GFR (Non-Af Amer) POC Glucose (mg/dL) Random Glucose Calcium Total Bilirubin AST ALT Alkaline Phosphatase Troponin I Total Protein Albumin Globulin Albumin/Globulin Ratio Procalcitonin Arterial Blood Potassium 3.9
--- NOTE | 2018-04-30 15:25 | CT ---
Date of service: 04/30/2018 PROCEDURE: CT HEAD WITHOUT CONTRAST. HISTORY: ams COMPARISON: 04/29/2018 TECHNIQUE: Axial computed tomography images were obtained through the head/brain without intravenous contrast. Radiation dose: Total exam DLP = 760.62 mGy-cm. This CT exam was performed using one or more of the following dose reduction techniques: Automated exposure control, adjustment of the mA and/or kV according to patient size, and/or use of iterative reconstruction technique. FINDINGS: Examination is somewhat limited due to motion artifact obscuring the posterior fossa. HEMORRHAGE: No intracranial hemorrhage. BRAIN: No mass effect or edema. There is mild to moderate diffuse age-appropriate cerebral atrophy. There is an old high right frontal infarct. There is an old right occipital parietal infarct. There is no evidence of acute infarct. There is moderate periventricular white matter lucency consistent with microvascular white matter ischemic change. VENTRICLES: Unremarkable. No hydrocephalus. CALVARIUM: Unremarkable. PARANASAL SINUSES: Unremarkable as visualized. No significant inflammatory changes. MASTOID AIR CELLS: Unremarkable as visualized. No inflammatory changes. OTHER FINDINGS: Endotracheal tube noted. IMPRESSION: No evidence of acute infarct. Age related atrophy and chronic white matter ischemic change. 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
[2018-04-30] MEDS: Amiodarone 360 mg/D5W 200 ml 360 MG/200 ML BAG IV SCH (15:31)
--- NOTE | 2018-04-30 16:08 | CT ---
Date of service: 04/30/2018 PROCEDURE: CT Chest, Abdomen and Pelvis without intravenous contrast HISTORY: rule out infection COMPARISON: Not available TECHNIQUE: Radiation dose: Total exam DLP = 1095.28 mGy-cm. This CT exam was performed using one or more of the following dose reduction techniques: Automated exposure control, adjustment of the mA and/or kV according to patient size, and/or use of iterative reconstruction technique. FINDINGS: CT CHEST WITHOUT CONTRAST: LUNGS: No infiltrate linear pleural-based scar in lingular segment left upper lobe. Subsegmental atelectasis in left lower lobe. No pulmonary mass. MEDIASTINUM: No evidence of thoracic aortic aneurysm. There is atherosclerotic calcification of the thoracic aorta. The main pulmonary artery is normal in caliber. The heart is mildly enlarged. Coronary arterial calcification is noted. There is no pericardial effusion.An endotracheal tube is noted terminating 2.8 cm above the tracheal nubia. A nasogastric tube traverses the thoracic esophagus to the left upper quadrant of the abdomen. LYMPH NODES: Subcentimeter mediastinal nodes. No hilar lymphadenopathy appreciated on this noncontrast examination. PLEURA: Unremarkable. No pneumothorax. No pleural fluid. BONES: Unremarkable. OTHER FINDINGS: None. CT ABDOMEN AND PELVIS: LIVER: Unremarkable. No gross lesion or ductal dilatation. GALLBLADDER AND BILE DUCTS: Gallbladder distended. Cholelithiasis. No mural thickening or pericholecystic fluid. PANCREAS: Atrophic pancreas. No mass. No ductal dilatation. SPLEEN: Unremarkable. ADRENALS: Unremarkable. No mass. KIDNEYS AND URETERS: Exophytic right upper pole renal cortical cyst, 4.4 cm diameter. No left renal mass. No calculus or hydronephrosis. VASCULATURE: Extensive atherosclerotic calcification of the abdominal aorta. No evidence of abdominal aortic aneurysm. Questionable short segment dissection of suprarenal abdominal aorta, images series 6, 40 through 49. BOWEL: No bowel obstruction. No abnormal bowel loops. Nasogastric tube seen within stomach. APPENDIX: Not identified. PERITONEUM: Unremarkable. No free fluid. No free air. LYMPH NODES: Unremarkable. No enlarged lymph nodes. BLADDER: Decompressed. Masters catheter balloon. REPRODUCTIVE: Most likely within the uterus, there is a large collection of fluid and gas with marked distention of the uterus and thinning of the myometrium. This measures up to 9.7 cm in diameter. This may reflect endometrial neoplasm. Further evaluation is advised.. BONES: No acute fracture. OTHER FINDINGS: None. IMPRESSION: Large collection of fluid and gas most likely within the uterus, measuring up to 9.7 cm in diameter. Concerning for cervical/endometrial stenosis from neoplasm. Further evaluation is advised. Masters catheter noted within decompressed bladder. Cholelithiasis without evidence of cholecystitis. No pulmonary infiltrate. Endotracheal tube and nasogastric tube noted. Minor findings as above. To be due to
[2018-04-30 16:24] LABS: URINE BILIRUBIN NEGATIVE (NEGATIVE); URINE BLOOD LARGE (NEGATIVE); URINE GLUCOSE (UA) NEGATIVE (NEGATIVE); URINE LEUKOCYTE ESTERASE TRACE Leu/uL (NEGATIVE); URINE PROTEIN 30 mg/dL (<30 mg/dL); URINE UROBILINOGEN 0.2 E.U./dL (<1 E.U./dL)
[2018-04-30 16:25] LABS: URINE APPEARANCE SL CLOUDY (CLEAR); URINE COLOR DARK YELLOW (YELLOW)
--- NOTE | 2018-04-30 16:26 | CARD ---
APPROVED REPORT Date of service: 04/29/2018 EKG Measurement Heart [id number] <Conclusion> Undetermined rhythm Left axis deviation Right bundle branch block Septal infarct, age undetermined T wave abnormality, consider lateral ischemia Abnormal ECG
[2018-04-30 16:28] LABS: URINE AMORPHOUS SEDIMENT SMALL /hpf; URINE BACTERIA TRACE /hpf; URINE RBC 25 - 30 /hpf (0-2)
[2018-04-30 17:15] LABS: ARTERIAL BLOOD GAS O2 SAT 95.2 % (95-98); ARTERIAL BLOOD GAS PCO2 30 mm/Hg (35-45); ARTERIAL BLOOD GAS PH 7.21 (7.35-7.45); ARTERIAL BLOOD GAS TCO2 12.9 mmol.L (22-28)
[2018-04-30] MEDS: Thiamine 100 mg/ml Inj IV SCH (18:05)
[2018-04-30] MEDS: Insulin Lispro (HUMAlog) HIGH Coverage SC SCH (18:06)
[2018-04-30] MEDS: Sodium Bicarbonate 8.4% 150 MEQ in Dextrose 5% In Water 1,000 ML IV SCH (18:53)
--- NOTE | 2018-04-30 19:13 | PN ---
DATE: 04/30/2018 SUBJECTIVE: The patient remains on a ventilator. PHYSICAL EXAMINATION: VITAL SIGNS: 107 systolic, heart rate is in the 80s. NECK: Negative JVD. LUNGS: Bilateral rhonchi. HEART: Reveals S1, S2 with 2/6 systolic murmur. EXTREMITIES: Without edema. LABORATORY: Hemoglobin is 8.1 with a white count of 38,000. BUN and creatinine 60 and 2.8. IMPRESSION: 1. Status post cardiac arrest. 2. Respiratory failure. 3. Non-ST elevation myocardial infarction. 4. Coronary artery disease. 5. Renal failure. PLAN: Given these findings, we will continue the patient on aspirin and beta-blockers. Neurologic workup is pending. Eddi Page MD
[2018-04-30] MEDS ORDERED: Insulin Regular 1 UNITS/0.01 ML ML IV STA (21:36)
[2018-05-01] MEDS: Insulin Lispro (HUMAlog) HIGH Coverage SC SCH ×3 (00:27→18:05)
[2018-05-01] MEDS ORDERED: Insulin Regular 1 UNITS/0.01 ML ML IV STA (01:29)
[2018-05-01] MEDS: Sodium Bicarbonate 8.4% 150 MEQ in Dextrose 5% In Water 1,000 ML IV SCH (04:20)
[2018-05-01] MEDS: Amiodarone 360 mg/D5W 200 ml 360 MG/200 ML BAG IV SCH (04:21)
[2018-05-01 06:08] LABS: ARTERIAL BLOOD GAS HCO3 22.6 mmol/L (21-28); ARTERIAL BLOOD GAS HEMOGLOBIN 10.9 g/dL (11.7-17.4); ARTERIAL BLOOD GAS O2 CAPACITY 15.1 mL/dl (16-24); ARTERIAL BLOOD GAS O2 CONTENT 14.8 ML/dl (15-23); ARTERIAL BLOOD GAS O2 SAT 98.2 % (95-98); ARTERIAL BLOOD GAS PCO2 40 mm/Hg (35-45); ARTERIAL BLOOD GAS PH 7.36 (7.35-7.45); ARTERIAL BLOOD GAS TCO2 23.8 mmol.L (22-28)
[2018-05-01] MEDS: Aztreonam 1 Gm in NS 100mL 100 ML IVPB SCH ×3 (06:22→21:13)
[2018-05-01] MEDS ORDERED: Amikacin 500 MG in Dextrose 5% In Water 100 ML IVPB ONE (07:00)
[2018-05-01 07:05] LABS: BASO # 0.01 K/mm3 (0.0-2.0); HEMOGLOBIN 8.6 g/dL (12.0-16.0); LYMPH # 5.9 (1.2-3.4); MEAN CELL VOLUME 91.6 fl (80.0-105.0); MEAN CORPUSCULAR HGB CONC 32.7 g/dl (31.0-37.0); MEAN PLATELET VOLUME 10.3 fl (7.0-11.0); MONO # 0.6 (0.1-0.6); MONO % 1.8 % (1.0-6.0); PLATELET COUNT 303 10^3/uL (120.0-450.0); RBC 2.87 10^6/uL (3.5-6.1); RED CELL DISTRIBUTION WIDTH 14.2 % (11.5-14.5)
[2018-05-01 07:30] LABS: WHITE BLOOD COUNT 34.9 10^3/uL (4.5-11.0)
[2018-05-01 08:30] LABS: ALB/GLOB RATIO 0.9 (1.1-1.8); ALBUMIN 2.7 g/dL (3.0-4.8); CALCIUM 6.3 mg/dL (8.4-10.5)
[2018-05-01 08:42] LABS: LYMPHOCYTE 23 % (22.0-35.0); MONOCYTE 1 % (1.0-6.0); NEUTROPHIL 76 % (50.0-70.0); NUCLEATED RED BLOOD CELL 1 %
[2018-05-01 08:43] LABS: PLATELET ESTIMATE NORMAL (NORMAL)
[2018-05-01] MEDS: Thiamine 100 mg/ml Inj IV SCH ×2 (09:43→17:14)
--- NOTE | 2018-05-01 09:45 | RAD ---
Date of service: 05/01/2018 HISTORY: Follow-up COMPARISON: No prior. FINDINGS: In situ ETT, tip of which lies approximately 2.9 cm above nubia. NGT is present the tip of which has not been included on this film though distal aspect does lie well below EG junction.. Interval placement right IJ central line with tip in the SVC LUNGS: Slightly improved pulmonary venous congestive changes with residual bibasilar atelectasis left greater than right. There are also small bilateral effusions left greater than right PLEURA: No significant pleural effusion identified, no pneumothorax apparent. CARDIOVASCULAR: Moderate aortic atherosclerotic calcification present. Heart is mildly enlarged. OSSEOUS STRUCTURES: No significant abnormalities. VISUALIZED UPPER ABDOMEN: Cholelithiasis. OTHER FINDINGS: None. IMPRESSION: Support lines and tubes as above Slightly improved pulmonary venous congestive changes with residual bibasilar atelectasis left greater than right. There are also small bilateral effusions left greater than right
[2018-05-01] MEDS: Carbidopa/Levodopa/Entacapone 37.5mg-150mg-200mg PO SCH ×3 (10:47→18:12)
[2018-05-01] MEDS: Lactated Ringer's 1,000 ML IV SCH (10:50)
[2018-05-01 11:48] LABS: ARTERIAL BLOOD GAS HCO3 24.8 mmol/L (21-28); ARTERIAL BLOOD GAS HEMOGLOBIN 8.3 g/dL (11.7-17.4); ARTERIAL BLOOD GAS O2 CAPACITY 11.7 mL/dl (16-24); ARTERIAL BLOOD GAS O2 CONTENT 11.5 ML/dl (15-23); ARTERIAL BLOOD GAS O2 SAT 98.4 % (95-98); ARTERIAL BLOOD GAS PCO2 42 mm/Hg (35-45); ARTERIAL BLOOD GAS PH 7.38 (7.35-7.45); ARTERIAL BLOOD GAS TCO2 26.1 mmol.L (22-28)
--- NOTE | 2018-05-01 12:09 | PN ---
DATE: 05/01/2018(640am-730am) SUBJECTIVE: The patient remains on the ventilator. She is lethargic, but arousable. PHYSICAL EXAMINATION: VITAL SIGNS: (Last noted in the computer): Temperature is 98.2, pulse 73, respirations 18/14, blood pressure 124/45. HEENT: Normocephalic, atraumatic. No JVD. CARDIOVASCULAR: Systolic ejection murmur at the lower left sternal border. Questionable S3 gallop. LUNGS: Minimal crackles at both bases. Minimal/less rhonchi. No wheezing. EXTREMITIES: No clubbing, cyanosis or edema. GASTROINTESTINAL: Abdomen is soft, nontender and nondistended. Bowel sounds are positive. SKIN: No acute rash. NEUROLOGIC: Exam limited at the present time. PERTINENT LABORATORY DATA: Chest x-ray was done this morning and reviewed. There is continued clearing of the previously seen pulmonary vascular congestion. CAT scan of the chest was done yesterday and reviewed. There are minimal dependent changes noted at the bases. There is also some scarring in the lingular lobe. There are no significant infiltrates. There is no pulmonary mass or nodule noted. Arterial blood gas was done on PRVC 14, tidal volume 400, FIO2 of 35%. Results are: PH 7.36, pCO2 of 40, pO2 of 87. IMPRESSION: 1. Respiratory failure. 2. Status post code blue. 3. Acute myocardial infarction. 4. Acute congestive heart failure. 5. Chronic obstructive pulmonary disease. 6. Anemia. PLAN: The patient remains in the ICU and on the ventilator. She is lethargic, but arousable. I did discuss the case with the night nurse at length. The night nurse informed me that the patient is doing a little better. The Levophed is being weaned. I did review the last chest x-ray as above. The x-ray continues to improve with decreased pulmonary vascular congestion. I have also reviewed the last CAT scan of the chest. Findings are noted above. I have also reviewed the arterial blood gas. The arterial blood gas is improved--- with resolution of the acidosis and a decrease in the alveolar-arterial gradient. I will discuss possible weaning trials with the ICU team later today. I would continue with the treatment for congestive heart failure and myocardial infarction as per Cardiology. Input by Dr. Page is noted. The patient remains critically ill, but is certainly improved from a few days ago. I will discuss the above with the entire ICU team in the next few moments. I will also discuss the above with the attending physician later this morning. Burton Aguilar MD MTDRich
--- NOTE | 2018-05-01 12:21 | CP.CCUPN ---
<Sandee Huang - Last Filed: 05/01/18 12:15> CCU Subjective - Physician Review Subjective (Free Text): Sandee Huang, PGY-1, ICU Progress Note for Dr. Ngo Patient seen and evaluated at bedside. Arterial line was placed yesterday for better blood pressure monitoring and patient was found to have SBP in the 150s yesterday in comparison to the blood pressure cuff showing SBP in the 100s. Pressors were stopped this AM. Patient was successfully intubated this morning. Patient was able to answer questions by nodding her head this AM. Patient denied shortness of breath, chest pain, headaches, dizziness. 12-point ROS was unattainable due to patient's recent extubation status this morning.. CCU Objective - Vital Signs / Intake & Output Intake and Output (Last 8hrs): Intake & Output 04/30/18 05/01/18 05/01/18 22:59 06:59 14:59 Intake Total 300 2324 Output Total 475 Balance 300 1849 Intake: IV 300 2324 antibiotics 200 bicarb 1800 heparin 108 norepinephrine 108 vasopressin 108 Output: Urine 475 Urethral (Masters) 475 Other: Voiding Method Indwelling Catheter - Physical Exam Head: Positive for: Atraumatic, Normocephalic Pupils: Positive for: PERRL Mouth: Positive for: Moist Mucous Membranes Neck: Positive for: Normal Range of Motion Respiratory/Chest: Positive for: Good Air Exchange. Negative for: Respiratory Distress, Accessory Muscle Use Cardiovascular: Positive for: Regular Rate and Rhythm, Normal S1, S2. Negative for: Murmurs Abdomen: Negative for: Tenderness, Distention, Peritoneal Signs Upper Extremity: Positive for: Normal ROM, NORMAL PULSES, Other (multiple small ecchymotic areas consistent with multiple falls). Negative for: Cyanosis, Edema, Tenderness, Swelling Lower Extremity: Positive for: Edema (left ankle), NORMAL PULSES, Tenderness (left ankle), Swelling (left ankle), Neurovascularly Intact, Capillary Refill < 2 s. Negative for: CALF TENDERNESS, Normal ROM (decreased ROM d/t swelling at left nakle normal ROm in all other lowere extremity joints) Neurological: Positive for: GCS=15, CN II-XII Intact Skin: Positive for: Warm, Dry Psychiatric: Positive for: Alert, Normal Concentration, Other (recently extubated). Negative for: Normal Insight - Medications Active Medications: Active Medications Generic Name Dose Route Start Last Admin Trade Name Freq PRN Reason Stop Dose Admin Acetaminophen 650 mg 04/28/18 00:59 04/28/18 01:29 Tylenol 325mg Tab PO 650 mg Q6H PRN Administration Fever >100.4 F Albuterol/Ipratropium 3 ml 05/01/18 14:00 Duoneb 3 Mg/0.5 Mg (3 Ml) Ud IH [id number] STEVEN Arformoterol Tartrate 15 mcg 05/01/18 20:00 Brovana IH [id number] STEVEN Aspirin 81 mg 04/27/18 10:00 05/01/18 09:43 Aspirin Chewable PO 81 mg DAILY STEVEN Administration Budesonide 0.5 mg 05/01/18 20:00 Pulmicort Respules IH [id number] STEVEN Carbidopa/Levodopa/Entacapone 1 tab 04/27/18 10:00 05/01/18 10:47 Stalevo 150 PO Not Given TID STEVEN Clopidogrel Bisulfate 75 mg 04/29/18 10:00 05/01/18 09:43 Plavix PO 75 mg DAILY STEVEN Administration Dextrose 0 ml 04/29/18 12:32 Dextrose 50% Inj IV STAT PRN Hypoglycemia Protocol Protocol Docusate Sodium 100 mg 04/27/18 10:00 04/29/18 10:33 Colace PO 100 mg BID STEEVN Administration Glyburide 5 mg 04/28/18 17:00 04/29/18 08:22 Micronase PO 5 mg 0800,1700 STEVEN Administration Hydrocortisone Sodium Succinate 25 mg 05/01/18 10:45 05/01/18 10:49 Solu-Cortef IVP 25 mg Q12H STEVEN Administration Aztreonam 100 mls @ 100 mls/hr 04/29/18 09:45 05/01/18 06:22 Azactam 1 Gm IVPB 05/06/18 09:46 100 mls/hr Q8 STEVEN Administration Protocol Dextrose 1,000 mls @ 0 mls/hr 04/29/18 12:32 Dextrose 5% In Water 1000 Ml IV .Q0M PRN Hypoglycemia Protocol Protocol Per Protocol Amiodarone HCl/Dextrose 360 mg in 200 mls @ 16.667 mls/hr 04/30/18 15:30 05/01/18 04:21 Nexterone 360 Mg In D5w 200 Ml (Premix) IV 16.667 mls/hr .Q12H STEVEN Administration Protocol 0.5 MG/MIN Ascorbic Acid 1,500 mg/ Sodium 53 mls @ 53 mls/hr 04/30/18 17:00 05/01/18 11:30 Chloride IVPB 53 mls/hr Q6H STEVEN Administration Lactated Ringer's 1,000 mls @ 75 mls/hr 05/01/18 10:45 05/01/18 10:50 Lactated Ringer's IV 75 mls/hr .[id number] STEVEN Administration Insulin Human Lispro 0 units 04/30/18 18:00 05/01/18 00:27 Humalog High SC 4 units Q6 STEVEN Administration Protocol Lisinopril 10 mg 04/27/18 10:00 04/29/18 10:25 Zestril PO Not Given DAILY STEVEN Metoprolol Tartrate 25 mg 04/28/18 08:32 04/29/18 10:25 Lopressor PO Not Given BID STEVEN Nicotine 1 patch 05/02/18 10:00 Nicoderm Cq TD DAILY STEVEN Pantoprazole Sodium 40 mg 04/29/18 10:00 05/01/18 09:43 Protonix Inj IVP 40 mg DAILY STEVEN Administration Thiamine HCl 200 mg 04/30/18 18:00 05/01/18 09:43 Vitamin B1 Inj IV 200 mg BID STEVEN Administration Zolpidem Tartrate 5 mg 04/28/18 20:25 04/28/18 22:12 Ambien PO 5 mg HS PRN Administration Insomnia Protocol - Patient Studies Lab Studies: Microbiology Studies 04/29/18 04:10 Blood Culture - Preliminary Blood-Venous Gram Negative Jose Gram Stain - Final 04/26/18 18:00 Blood Culture - Preliminary Blood NO GROWTH AFTER 4 DAYS 04/26/18 17:30 Blood Culture - Preliminary Blood NO GROWTH AFTER 4 DAYS 04/29/18 03:40 Blood Culture - Preliminary Blood-Venous Gram Negative Jose Gram Stain - Final 04/29/18 03:50 MRSA Culture (Admit) - Final Nose MRSA NOT DETECTED 04/29/18 05:15 Urine Culture - Final Urine,Clean Catch No Growth (<1,000 CFU/ML) Lab Studies 05/01/18 05/01/18 05/01/18 Range/Units 11:40 07:38 06:58 WBC (4.5-11.0) 10^3/uL RBC (3.5-6.1) 10^6/uL Hgb (12.0-16.0) g/dL Hct (36.0-48.0) % MCV (80.0-105.0) fl MCH (25.0-35.0) pg MCHC (31.0-37.0) g/dl RDW (11.5-14.5) % Plt Count (120.0-450.0) 10^3/uL MPV (7.0-11.0) fl Neut % (Auto) (50.0-68.0) % Lymph % (Auto) (22.0-35.0) % [place] % (Auto) (1.0-6.0) % Eos % (Auto) (1.5-5.0) % Baso % (Auto) (0.0-3.0) % Lymph # (Auto) (1.2-3.4) [place] # (Auto) (0.1-0.6) Eos # (Auto) (0.0-0.7) Baso # (Auto) (0.0-2.0) K/mm3 Absolute Neuts (auto) (1.4-6.5) Neutrophils % (Manual) (50.0-70.0) % Lymphocytes % (Manual) (22.0-35.0) % Monocytes % (Manual) (1.0-6.0) % Nucleated RBC % % Platelet Evaluation (NORMAL) APTT 38.9 H (26.9-38.3) Seconds pCO2 42 (35-45) mm/Hg pO2 105.0 H (80-100) mm/Hg HCO3 24.8 (21-28) mmol/L ABG pH 7.38 (7.35-7.45) ABG Total CO2 26.1 (22-28) mmol.L ABG O2 Saturation 98.4 H (95-98) % ABG O2 Content 11.5 L (15-23) ML/dl ABG Base Excess -0.3 (-2.0-3.0) mmol/L ABG Hemoglobin 8.3 L (11.7-17.4) g/dL ABG Carboxyhemoglobin 1.2 (0.5-1.5) % POC ABG HHb (Measured) 1.6 (0-5) % ABG Methemoglobin 0.7 (0.0-3.0) % ABG O2 Capacity 11.7 L (16-24) mL/dl ABG Potassium (3.6-5.2) mmol/L Hgb O2 Saturation 96.4 (95.0-98.0) % Sodium (132-148) mmol/L Chloride (98-107) mmol/L Glucose (65-105) mg/dl Lactate (0.7-2.1) mmol/L FiO2 40.0 % PEEP Pressure Support Potassium (3.6-5.0) mmol/L Carbon Dioxide (21-33) mmol/L Anion Gap (10-20) BUN (7-21) mg/dL Creatinine (0.7-1.2) mg/dl Est GFR ( Amer) Est GFR (Non-Af Amer) POC Glucose (mg/dL) 280 H (65-110) mg/dL Random Glucose (70-110) mg/dL Calcium (8.4-10.5) mg/dL Total Bilirubin (0.2-1.3) mg/dL AST (14-36) U/L ALT (7-56) U/L Alkaline Phosphatase (38-126) U/L Total Protein (5.8-8.3) g/dL Albumin (3.0-4.8) g/dL Globulin gm/dL Albumin/Globulin Ratio (1.1-1.8) Arterial Blood Potassium (3.6-5.2) mmol/L Urine Color (YELLOW) Urine Appearance (CLEAR) Urine pH (4.7-8.0) Ur Specific [place] (1.005-1.035) Urine Protein (<30 mg/dL) mg/dL Urine Glucose (UA) (NEGATIVE) mg/dL Urine Ketones (NEGATIVE) mg/dL Urine Blood (NEGATIVE) Urine Nitrate (NEGATIVE) Urine Bilirubin (NEGATIVE) Urine Urobilinogen (<1 E.U./dL) E.U./dL Ur Leukocyte Esterase (NEGATIVE) [place]/uL Urine RBC (0-2) /hpf Urine WBC (0-6) /hpf Ur Epithelial Cells (0-5) /hpf Amorphous Sediment (NONE) /hpf Urine Bacteria (NONE) /hpf Influenza Typ A,B (EIA) (NEGATIVE) 05/01/18 05/01/18 05/01/18 Range/Units 06:00 06:00 05:35 WBC 34.9 H* (4.5-11.0) 10^3/uL RBC 2.87 L (3.5-6.1) 10^6/uL Hgb 8.6 L (12.0-16.0) g/dL Hct 26.3 L (36.0-48.0) % MCV 91.6 (80.0-105.0) fl MCH 30.0 (25.0-35.0) pg MCHC 32.7 (31.0-37.0) g/dl RDW 14.2 (11.5-14.5) % Plt Count 303 (120.0-450.0) 10^3/uL MPV 10.3 (7.0-11.0) fl Neut % (Auto) 81.2 H (50.0-68.0) % Lymph % (Auto) 17.0 L (22.0-35.0) % [place] % (Auto) 1.8 (1.0-6.0) % Eos % (Auto) 0.0 L (1.5-5.0) % Baso % (Auto) 0.0 (0.0-3.0) % Lymph # (Auto) 5.9 H (1.2-3.4) [place] # (Auto) 0.6 (0.1-0.6) Eos # (Auto) 0.0 (0.0-0.7) Baso # (Auto) 0.01 (0.0-2.0) K/mm3 Absolute Neuts (auto) 28.30 H (1.4-6.5) Neutrophils % (Manual) 76 H (50.0-70.0) % Lymphocytes % (Manual) 23 (22.0-35.0) % Monocytes % (Manual) 1 (1.0-6.0) % Nucleated RBC % 1 % Platelet Evaluation Normal (NORMAL) APTT (26.9-38.3) Seconds pCO2 40 (35-45) mm/Hg pO2 87.0 (80-100) mm/Hg HCO3 22.6 (21-28) mmol/L ABG pH 7.36 (7.35-7.45) ABG Total CO2 23.8 (22-28) mmol.L ABG O2 Saturation 98.2 H (95-98) % ABG O2 Content 14.8 L (15-23) ML/dl ABG Base Excess -2.7 L (-2.0-3.0) mmol/L ABG Hemoglobin 10.9 L (11.7-17.4) g/dL ABG Carboxyhemoglobin 1.7 H (0.5-1.5) % POC ABG HHb (Measured) 1.8 (0-5) % ABG Methemoglobin 0.7 (0.0-3.0) % ABG O2 Capacity 15.1 L (16-24) mL/dl ABG Potassium (3.6-5.2) mmol/L Hgb O2 Saturation 95.8 (95.0-98.0) % Sodium 142 (132-148) mmol/L Chloride 111 H (98-107) mmol/L Glucose (65-105) mg/dl Lactate (0.7-2.1) mmol/L FiO2 35.0 % PEEP Pressure Support Potassium 3.6 (3.6-5.0) mmol/L Carbon Dioxide 23 (21-33) mmol/L Anion Gap 12 (10-20) BUN 67 H (7-21) mg/dL Creatinine 2.3 H (0.7-1.2) mg/dl Est GFR ( Amer) 24 Est GFR (Non-Af Amer) 20 POC Glucose (mg/dL) (65-110) mg/dL Random Glucose 215 H (70-110) mg/dL Calcium 6.3 L* (8.4-10.5) mg/dL Total Bilirubin 0.3 (0.2-1.3) mg/dL AST 165 H D (14-36) U/L ALT 86 H (7-56) U/L Alkaline Phosphatase 100 (38-126) U/L Total Protein 5.7 L (5.8-8.3) g/dL Albumin 2.7 L (3.0-4.8) g/dL Globulin 3.0 gm/dL Albumin/Globulin Ratio 0.9 L (1.1-1.8) Arterial Blood Potassium (3.6-5.2) mmol/L Urine Color (YELLOW) Urine Appearance (CLEAR) Urine pH (4.7-8.0) Ur Specific State [place] (1.005-1.035) Urine Protein (<30 mg/dL) mg/dL Urine Glucose (UA) (NEGATIVE) mg/dL Urine Ketones (NEGATIVE) mg/dL Urine Blood (NEGATIVE) Urine Nitrate (NEGATIVE) Urine Bilirubin (NEGATIVE) Urine Urobilinogen (<1 E.U./dL) E.U./dL Ur Leukocyte Esterase (NEGATIVE) [place]/uL Urine RBC (0-2) /hpf Urine WBC (0-6) /hpf Ur Epithelial Cells (0-5) /hpf Amorphous Sediment (NONE) /hpf Urine Bacteria (NONE) /hpf Influenza Typ A,B (EIA) (NEGATIVE) 05/01/18 05/01/18 05/01/18 Range/Units 04:03 02:59 01:22 WBC (4.5-11.0) 10^3/uL RBC (3.5-6.1) 10^6/uL Hgb (12.0-16.0) g/dL Hct (36.0-48.0) % MCV (80.0-105.0) fl MCH (25.0-35.0) pg MCHC (31.0-37.0) g/dl RDW (11.5-14.5) % Plt Count (120.0-450.0) 10^3/uL MPV (7.0-11.0) fl Neut % (Auto) (50.0-68.0) % Lymph % (Auto) (22.0-35.0) % [place] % (Auto) (1.0-6.0) % Eos % (Auto) (1.5-5.0) % Baso % (Auto) (0.0-3.0) % Lymph # (Auto) (1.2-3.4) [place] # (Auto) (0.1-0.6) Eos # (Auto) (0.0-0.7) Baso # (Auto) (0.0-2.0) K/mm3 Absolute Neuts (auto) (1.4-6.5) Neutrophils % (Manual) (50.0-70.0) % Lymphocytes % (Manual) (22.0-35.0) % Monocytes % (Manual) (1.0-6.0) % Nucleated RBC % % Platelet Evaluation (NORMAL) APTT (26.9-38.3) Seconds pCO2 (35-45) mm/Hg pO2 (80-100) mm/Hg HCO3 (21-28) mmol/L ABG pH (7.35-7.45) ABG Total CO2 (22-28) mmol.L ABG O2 Saturation (95-98) % ABG O2 Content (15-23) ML/dl ABG Base Excess (-2.0-3.0) mmol/L ABG Hemoglobin (11.7-17.4) g/dL ABG Carboxyhemoglobin (0.5-1.5) % POC ABG HHb (Measured) (0-5) % ABG Methemoglobin (0.0-3.0) % ABG O2 Capacity (16-24) mL/dl ABG Potassium (3.6-5.2) mmol/L Hgb O2 Saturation (95.0-98.0) % Sodium (132-148) mmol/L Chloride (98-107) mmol/L Glucose (65-105) mg/dl Lactate (0.7-2.1) mmol/L FiO2 % PEEP Pressure Support Potassium (3.6-5.0) mmol/L Carbon Dioxide (21-33) mmol/L Anion Gap (10-20) BUN (7-21) mg/dL Creatinine (0.7-1.2) mg/dl Est GFR ( Amer) Est GFR (Non-Af Amer) POC Glucose (mg/dL) 349 H 356 H 467 H* (65-110) mg/dL Random Glucose (70-110) mg/dL Calcium (8.4-10.5) mg/dL Total Bilirubin (0.2-1.3) mg/dL AST (14-36) U/L ALT (7-56) U/L Alkaline Phosphatase (38-126) U/L Total Protein (5.8-8.3) g/dL Albumin (3.0-4.8) g/dL Globulin gm/dL Albumin/Globulin Ratio (1.1-1.8) Arterial Blood Potassium (3.6-5.2) mmol/L Urine Color (YELLOW) Urine Appearance (CLEAR) Urine pH (4.7-8.0) Ur Specific [place] (1.005-1.035) Urine Protein (<30 mg/dL) mg/dL Urine Glucose (UA) (NEGATIVE) mg/dL Urine Ketones (NEGATIVE) mg/dL Urine Blood (NEGATIVE) Urine Nitrate (NEGATIVE) Urine Bilirubin (NEGATIVE) Urine Urobilinogen (<1 E.U./dL) E.U./dL Ur Leukocyte Esterase (NEGATIVE) [place]/uL Urine RBC (0-2) /hpf Urine WBC (0-6) /hpf Ur Epithelial Cells (0-5) /hpf Amorphous Sediment (NONE) /hpf Urine Bacteria (NONE) /hpf Influenza Typ A,B (EIA) (NEGATIVE) 05/01/18 05/01/18 04/30/18 Range/Units 00:55 00:13 21:28 WBC (4.5-11.0) 10^3/uL RBC (3.5-6.1) 10^6/uL Hgb (12.0-16.0) g/dL Hct (36.0-48.0) % MCV (80.0-105.0) fl MCH (25.0-35.0) pg MCHC (31.0-37.0) g/dl RDW (11.5-14.5) % Plt Count (120.0-450.0) 10^3/uL MPV (7.0-11.0) fl Neut % (Auto) (50.0-68.0) % Lymph % (Auto) (22.0-35.0) % [place] % (Auto) (1.0-6.0) % Eos % (Auto) (1.5-5.0) % Baso % (Auto) (0.0-3.0) % Lymph # (Auto) (1.2-3.4) [place] # (Auto) (0.1-0.6) Eos # (Auto) (0.0-0.7) Baso # (Auto) (0.0-2.0) K/mm3 Absolute Neuts (auto) (1.4-6.5) Neutrophils % (Manual) (50.0-70.0) % Lymphocytes % (Manual) (22.0-35.0) % Monocytes % (Manual) (1.0-6.0) % Nucleated RBC % % Platelet Evaluation (NORMAL) APTT 40.3 H (26.9-38.3) Seconds pCO2 (35-45) mm/Hg pO2 (80-100) mm/Hg HCO3 (21-28) mmol/L ABG pH (7.35-7.45) ABG Total CO2 (22-28) mmol.L ABG O2 Saturation (95-98) % ABG O2 Content (15-23) ML/dl ABG Base Excess (-2.0-3.0) mmol/L ABG Hemoglobin (11.7-17.4) g/dL ABG Carboxyhemoglobin (0.5-1.5) % POC ABG HHb (Measured) (0-5) % ABG Methemoglobin (0.0-3.0) % ABG O2 Capacity (16-24) mL/dl ABG Potassium (3.6-5.2) mmol/L Hgb O2 Saturation (95.0-98.0) % Sodium (132-148) mmol/L Chloride (98-107) mmol/L Glucose (65-105) mg/dl Lactate (0.7-2.1) mmol/L FiO2 % PEEP Pressure Support Potassium (3.6-5.0) mmol/L Carbon Dioxide (21-33) mmol/L Anion Gap (10-20) BUN (7-21) mg/dL Creatinine (0.7-1.2) mg/dl Est GFR ( Amer) Est GFR (Non-Af Amer) POC Glucose (mg/dL) 455 H* 444 H* (65-110) mg/dL Random Glucose (70-110) mg/dL Calcium (8.4-10.5) mg/dL Total Bilirubin (0.2-1.3) mg/dL AST (14-36) U/L ALT (7-56) U/L Alkaline Phosphatase (38-126) U/L Total Protein (5.8-8.3) g/dL Albumin (3.0-4.8) g/dL Globulin gm/dL Albumin/Globulin Ratio (1.1-1.8) Arterial Blood Potassium (3.6-5.2) mmol/L Urine Color (YELLOW) Urine Appearance (CLEAR) Urine pH (4.7-8.0) Ur Specific [place] (1.005-1.035) Urine Protein (<30 mg/dL) mg/dL Urine Glucose (UA) (NEGATIVE) mg/dL Urine Ketones (NEGATIVE) mg/dL Urine Blood (NEGATIVE) Urine Nitrate (NEGATIVE) Urine Bilirubin (NEGATIVE) Urine Urobilinogen (<1 E.U./dL) E.U./dL Ur Leukocyte Esterase (NEGATIVE) [place]/uL Urine RBC (0-2) /hpf Urine WBC (0-6) /hpf Ur Epithelial Cells (0-5) /hpf Amorphous Sediment (NONE) /hpf Urine Bacteria (NONE) /hpf Influenza Typ A,B (EIA) (NEGATIVE) 04/30/18 04/30/18 04/30/18 Range/Units 17:11 16:15 16:01 WBC (4.5-11.0) 10^3/uL RBC (3.5-6.1) 10^6/uL Hgb (12.0-16.0) g/dL Hct (36.0-48.0) % MCV (80.0-105.0) fl MCH (25.0-35.0) pg MCHC (31.0-37.0) g/dl RDW (11.5-14.5) % Plt Count (120.0-450.0) 10^3/uL MPV (7.0-11.0) fl Neut % (Auto) (50.0-68.0) % Lymph % (Auto) (22.0-35.0) % [place] % (Auto) (1.0-6.0) % Eos % (Auto) (1.5-5.0) % Baso % (Auto) (0.0-3.0) % Lymph # (Auto) (1.2-3.4) [place] # (Auto) (0.1-0.6) Eos # (Auto) (0.0-0.7) Baso # (Auto) (0.0-2.0) K/mm3 Absolute Neuts (auto) (1.4-6.5) Neutrophils % (Manual) (50.0-70.0) % Lymphocytes % (Manual) (22.0-35.0) % Monocytes % (Manual) (1.0-6.0) % Nucleated RBC % % Platelet Evaluation (NORMAL) APTT (26.9-38.3) Seconds pCO2 30 L (35-45) mm/Hg pO2 67.0 L (80-100) mm/Hg HCO3 12.0 L (21-28) mmol/L ABG pH 7.21 L (7.35-7.45) ABG Total CO2 12.9 L (22-28) mmol.L ABG O2 Saturation 95.2 (95-98) % ABG O2 Content (15-23) ML/dl ABG Base Excess -14.5 L (-2.0-3.0) mmol/L ABG Hemoglobin (11.7-17.4) g/dL ABG Carboxyhemoglobin (0.5-1.5) % POC ABG HHb (Measured) (0-5) % ABG Methemoglobin (0.0-3.0) % ABG O2 Capacity (16-24) mL/dl ABG Potassium 3.9 (3.6-5.2) mmol/L Hgb O2 Saturation (95.0-98.0) % Sodium 145.0 (132-148) mmol/L Chloride 119.0 H (98-107) mmol/L Glucose 286 H (65-105) mg/dl Lactate 1.4 (0.7-2.1) mmol/L FiO2 35.0 % PEEP 5 Pressure Support 5 Potassium (3.6-5.0) mmol/L Carbon Dioxide (21-33) mmol/L Anion Gap (10-20) BUN (7-21) mg/dL Creatinine (0.7-1.2) mg/dl Est GFR ( Amer) Est GFR (Non-Af Amer) POC Glucose (mg/dL) 332 H (65-110) mg/dL Random Glucose (70-110) mg/dL Calcium (8.4-10.5) mg/dL Total Bilirubin (0.2-1.3) mg/dL AST (14-36) U/L ALT (7-56) U/L Alkaline Phosphatase (38-126) U/L Total Protein (5.8-8.3) g/dL Albumin (3.0-4.8) g/dL Globulin gm/dL Albumin/Globulin Ratio (1.1-1.8) Arterial Blood Potassium 3.9 (3.6-5.2) mmol/L Urine Color Dark yellow (YELLOW) Urine Appearance Sl cloudy (CLEAR) Urine pH 6.0 (4.7-8.0) Ur Specific [place] >= 1.030 (1.005-1.035) Urine Protein 30 H (<30 mg/dL) mg/dL Urine Glucose (UA) Negative (NEGATIVE) mg/dL Urine Ketones Trace H (NEGATIVE) mg/dL Urine Blood Large H (NEGATIVE) Urine Nitrate Negative (NEGATIVE) Urine Bilirubin Negative (NEGATIVE) Urine Urobilinogen 0.2 (<1 E.U./dL) E.U./dL Ur Leukocyte Esterase Trace H (NEGATIVE) [place]/uL Urine RBC 25 - 30 H (0-2) /hpf Urine WBC 5 - 10 H (0-6) /hpf Ur Epithelial Cells 6 - 8 H (0-5) /hpf Amorphous Sediment Small (NONE) /hpf Urine Bacteria Trace (NONE) /hpf Influenza Typ A,B (EIA) (NEGATIVE) 04/30/18 Range/Units 15:50 WBC (4.5-11.0) 10^3/uL RBC (3.5-6.1) 10^6/uL Hgb (12.0-16.0) g/dL Hct (36.0-48.0) % MCV (80.0-105.0) fl MCH (25.0-35.0) pg MCHC (31.0-37.0) g/dl RDW (11.5-14.5) % Plt Count (120.0-450.0) 10^3/uL MPV (7.0-11.0) fl Neut % (Auto) (50.0-68.0) % Lymph % (Auto) (22.0-35.0) % [place] % (Auto) (1.0-6.0) % Eos % (Auto) (1.5-5.0) % Baso % (Auto) (0.0-3.0) % Lymph # (Auto) (1.2-3.4) [place] # (Auto) (0.1-0.6) Eos # (Auto) (0.0-0.7) Baso # (Auto) (0.0-2.0) K/mm3 Absolute Neuts (auto) (1.4-6.5) Neutrophils % (Manual) (50.0-70.0) % Lymphocytes % (Manual) (22.0-35.0) % Monocytes % (Manual) (1.0-6.0) % Nucleated RBC % % Platelet Evaluation (NORMAL) APTT (26.9-38.3) Seconds pCO2 (35-45) mm/Hg pO2 (80-100) mm/Hg HCO3 (21-28) mmol/L ABG pH (7.35-7.45) ABG Total CO2 (22-28) mmol.L ABG O2 Saturation (95-98) % ABG O2 Content (15-23) ML/dl ABG Base Excess (-2.0-3.0) mmol/L ABG Hemoglobin (11.7-17.4) g/dL ABG Carboxyhemoglobin (0.5-1.5) % POC ABG HHb (Measured) (0-5) % ABG Methemoglobin (0.0-3.0) % ABG O2 Capacity (16-24) mL/dl ABG Potassium (3.6-5.2) mmol/L Hgb O2 Saturation (95.0-98.0) % Sodium (132-148) mmol/L Chloride (98-107) mmol/L Glucose (65-105) mg/dl Lactate (0.7-2.1) mmol/L FiO2 % PEEP Pressure Support Potassium (3.6-5.0) mmol/L Carbon Dioxide (21-33) mmol/L Anion Gap (10-20) BUN (7-21) mg/dL Creatinine (0.7-1.2) mg/dl Est GFR ( Amer) Est GFR (Non-Af Amer) POC Glucose (mg/dL) (65-110) mg/dL Random Glucose (70-110) mg/dL Calcium (8.4-10.5) mg/dL Total Bilirubin (0.2-1.3) mg/dL AST (14-36) U/L ALT (7-56) U/L Alkaline Phosphatase (38-126) U/L Total Protein (5.8-8.3) g/dL Albumin (3.0-4.8) g/dL Globulin gm/dL Albumin/Globulin Ratio (1.1-1.8) Arterial Blood Potassium (3.6-5.2) mmol/L Urine Color (YELLOW) Urine Appearance (CLEAR) Urine pH (4.7-8.0) Ur Specific [place] (1.005-1.035) Urine Protein (<30 mg/dL) mg/dL Urine Glucose (UA) (NEGATIVE) mg/dL Urine Ketones (NEGATIVE) mg/dL Urine Blood (NEGATIVE) Urine Nitrate (NEGATIVE) Urine Bilirubin (NEGATIVE) Urine Urobilinogen (<1 E.U./dL) E.U./dL Ur Leukocyte Esterase (NEGATIVE) [place]/uL Urine RBC (0-2) /hpf Urine WBC (0-6) /hpf Ur Epithelial Cells (0-5) /hpf Amorphous Sediment (NONE) /hpf Urine Bacteria (NONE) /hpf Influenza Typ A,B (EIA) Negative for flu a/b (NEGATIVE) Laboratory Results - last 24 hr 04/30/18 04/30/18 04/30/18 15:50 16:01 16:15 WBC RBC Hgb Hct MCV MCH MCHC RDW Plt Count MPV Neut % (Auto) Lymph % (Auto) [place] % (Auto) Eos % (Auto) Baso % (Auto) Lymph # (Auto) [place] # (Auto) Eos # (Auto) Baso # (Auto) Absolute Neuts (auto) Neutrophils % (Manual) Lymphocytes % (Manual) Monocytes % (Manual) Nucleated RBC % Platelet Evaluation APTT pCO2 pO2 HCO3 ABG pH ABG Total CO2 ABG O2 Saturation ABG O2 Content ABG Base Excess ABG Hemoglobin ABG Carboxyhemoglobin POC ABG HHb (Measured) ABG Methemoglobin ABG O2 Capacity ABG Potassium Hgb O2 Saturation Sodium Chloride Glucose Lactate FiO2 PEEP Pressure Support Potassium Carbon Dioxide Anion Gap BUN Creatinine Est GFR ( Amer) Est GFR (Non-Af Amer) POC Glucose (mg/dL) 332 H Random Glucose Calcium Total Bilirubin AST ALT Alkaline Phosphatase Total Protein Albumin Globulin Albumin/Globulin Ratio Arterial Blood Potassium Urine Color Dark yellow Urine Appearance Sl cloudy Urine pH 6.0 Ur Specific [place] >= 1.030 Urine Protein 30 H Urine Glucose (UA) Negative Urine Ketones Trace H Urine Blood Large H Urine Nitrate Negative Urine Bilirubin Negative Urine Urobilinogen 0.2 Ur Leukocyte Esterase Trace H Urine RBC 25 - 30 H Urine WBC 5 - 10 H Ur Epithelial Cells 6 - 8 H Amorphous Sediment Small Urine Bacteria Trace Influenza Typ A,B (EIA) Negative for flu a/b 04/30/18 04/30/18 05/01/18 17:11 21:28 00:13 WBC RBC Hgb Hct MCV MCH MCHC RDW Plt Count MPV Neut % (Auto) Lymph % (Auto) [place] % (Auto) Eos % (Auto) Baso % (Auto) Lymph # (Auto) [place] # (Auto) Eos # (Auto) Baso # (Auto) Absolute Neuts (auto) Neutrophils % (Manual) Lymphocytes % (Manual) Monocytes % (Manual) Nucleated RBC % Platelet Evaluation APTT pCO2 30 L pO2 67.0 L HCO3 12.0 L ABG pH 7.21 L ABG Total CO2 12.9 L ABG O2 Saturation 95.2 ABG O2 Content ABG Base Excess -14.5 L ABG Hemoglobin ABG Carboxyhemoglobin POC ABG HHb (Measured) ABG Methemoglobin ABG O2 Capacity ABG Potassium 3.9 Hgb O2 Saturation Sodium 145.0 Chloride 119.0 H Glucose 286 H Lactate 1.4 FiO2 35.0 PEEP 5 Pressure Support 5 Potassium Carbon Dioxide Anion Gap BUN Creatinine Est GFR ( Amer) Est GFR (Non-Af Amer) POC Glucose (mg/dL) 444 H* 455 H* Random Glucose Calcium Total Bilirubin AST ALT Alkaline Phosphatase Total Protein Albumin Globulin Albumin/Globulin Ratio Arterial Blood Potassium 3.9 Urine Color Urine Appearance Urine pH Ur Specific [place] Urine Protein Urine Glucose (UA) Urine Ketones Urine Blood Urine Nitrate Urine Bilirubin Urine Urobilinogen Ur Leukocyte Esterase Urine RBC Urine WBC Ur Epithelial Cells Amorphous Sediment Urine Bacteria Influenza Typ A,B (EIA) 05/01/18 05/01/18 05/01/18 00:55 01:22 02:59 WBC RBC Hgb Hct MCV MCH MCHC RDW Plt Count MPV Neut % (Auto) Lymph % (Auto) [place] % (Auto) Eos % (Auto) Baso % (Auto) Lymph # (Auto) [place] # (Auto) Eos # (Auto) Baso # (Auto) Absolute Neuts (auto) Neutrophils % (Manual) Lymphocytes % (Manual) Monocytes % (Manual) Nucleated RBC % Platelet Evaluation APTT 40.3 H pCO2 pO2 HCO3 ABG pH ABG Total CO2 ABG O2 Saturation ABG O2 Content ABG Base Excess ABG Hemoglobin ABG Carboxyhemoglobin POC ABG HHb (Measured) ABG Methemoglobin ABG O2 Capacity ABG Potassium Hgb O2 Saturation Sodium Chloride Glucose Lactate FiO2 PEEP Pressure Support Potassium Carbon Dioxide Anion Gap BUN Creatinine Est GFR ( Amer) Est GFR (Non-Af Amer) POC Glucose (mg/dL) 467 H* 356 H Random Glucose Calcium Total Bilirubin AST ALT Alkaline Phosphatase Total Protein Albumin Globulin Albumin/Globulin Ratio Arterial Blood Potassium Urine Color Urine Appearance Urine pH Ur Specific [place] Urine Protein Urine Glucose (UA) Urine Ketones Urine Blood Urine Nitrate Urine Bilirubin Urine Urobilinogen Ur Leukocyte Esterase Urine RBC Urine WBC Ur Epithelial Cells Amorphous Sediment Urine Bacteria Influenza Typ A,B (EIA) 05/01/18 05/01/18 05/01/18 04:03 05:35 06:00 WBC 34.9 H* RBC 2.87 L Hgb 8.6 L Hct 26.3 L MCV 91.6 MCH 30.0 MCHC 32.7 RDW 14.2 Plt Count 303 MPV 10.3 Neut % (Auto) 81.2 H Lymph % (Auto) 17.0 L [place] % (Auto) 1.8 Eos % (Auto) 0.0 L Baso % (Auto) 0.0 Lymph # (Auto) 5.9 H [place] # (Auto) 0.6 Eos # (Auto) 0.0 Baso # (Auto) 0.01 Absolute Neuts (auto) 28.30 H Neutrophils % (Manual) 76 H Lymphocytes % (Manual) 23 Monocytes % (Manual) 1 Nucleated RBC % 1 Platelet Evaluation Normal APTT pCO2 40 pO2 87.0 HCO3 22.6 ABG pH 7.36 ABG Total CO2 23.8 ABG O2 Saturation 98.2 H ABG O2 Content 14.8 L ABG Base Excess -2.7 L ABG Hemoglobin 10.9 L ABG Carboxyhemoglobin 1.7 H POC ABG HHb (Measured) 1.8 ABG Methemoglobin 0.7 ABG O2 Capacity 15.1 L ABG Potassium Hgb O2 Saturation 95.8 Sodium Chloride Glucose Lactate FiO2 35.0 PEEP Pressure Support Potassium Carbon Dioxide Anion Gap BUN Creatinine Est GFR ( Amer) Est GFR (Non-Af Amer) POC Glucose (mg/dL) 349 H Random Glucose Calcium Total Bilirubin AST ALT Alkaline Phosphatase Total Protein Albumin Globulin Albumin/Globulin Ratio Arterial Blood Potassium Urine Color Urine Appearance Urine pH Ur Specific [place] Urine Protein Urine Glucose (UA) Urine Ketones Urine Blood Urine Nitrate Urine Bilirubin Urine Urobilinogen Ur Leukocyte Esterase Urine RBC Urine WBC Ur Epithelial Cells Amorphous Sediment Urine Bacteria Influenza Typ A,B (EIA) 05/01/18 05/01/18 05/01/18 06:00 06:58 07:38 WBC RBC Hgb Hct MCV MCH MCHC RDW Plt Count MPV Neut % (Auto) Lymph % (Auto) [place] % (Auto) Eos % (Auto) Baso % (Auto) Lymph # (Auto) [place] # (Auto) Eos # (Auto) Baso # (Auto) Absolute Neuts (auto) Neutrophils % (Manual) Lymphocytes % (Manual) Monocytes % (Manual) Nucleated RBC % Platelet Evaluation APTT 38.9 H pCO2 pO2 HCO3 ABG pH ABG Total CO2 ABG O2 Saturation ABG O2 Content ABG Base Excess ABG Hemoglobin ABG Carboxyhemoglobin POC ABG HHb (Measured) ABG Methemoglobin ABG O2 Capacity ABG Potassium Hgb O2 Saturation Sodium 142 Chloride 111 H Glucose Lactate FiO2 PEEP Pressure Support Potassium 3.6 Carbon Dioxide 23 Anion Gap 12 BUN 67 H Creatinine 2.3 H Est GFR ( Amer) 24 Est GFR (Non-Af Amer) 20 POC Glucose (mg/dL) 280 H Random Glucose 215 H Calcium 6.3 L* Total Bilirubin 0.3 AST 165 H D ALT 86 H Alkaline Phosphatase 100 Total Protein 5.7 L Albumin 2.7 L Globulin 3.0 Albumin/Globulin Ratio 0.9 L Arterial Blood Potassium Urine Color Urine Appearance Urine pH Ur Specific [place] Urine Protein Urine Glucose (UA) Urine Ketones Urine Blood Urine Nitrate Urine Bilirubin Urine Urobilinogen Ur Leukocyte Esterase Urine RBC Urine WBC Ur Epithelial Cells Amorphous Sediment Urine Bacteria Influenza Typ A,B (EIA) 05/01/18 11:40 WBC RBC Hgb Hct MCV MCH MCHC RDW Plt Count MPV Neut % (Auto) Lymph % (Auto) [place] % (Auto) Eos % (Auto) Baso % (Auto) Lymph # (Auto) [place] # (Auto) Eos # (Auto) Baso # (Auto) Absolute Neuts (auto) Neutrophils % (Manual) Lymphocytes % (Manual) Monocytes % (Manual) Nucleated RBC % Platelet Evaluation APTT pCO2 42 pO2 105.0 H HCO3 24.8 ABG pH 7.38 ABG Total CO2 26.1 ABG O2 Saturation 98.4 H ABG O2 Content 11.5 L ABG Base Excess -0.3 ABG Hemoglobin 8.3 L ABG Carboxyhemoglobin 1.2 POC ABG HHb (Measured) 1.6 ABG Methemoglobin 0.7 ABG O2 Capacity 11.7 L ABG Potassium Hgb O2 Saturation 96.4 Sodium Chloride Glucose Lactate FiO2 40.0 PEEP Pressure Support Potassium Carbon Dioxide Anion Gap BUN Creatinine Est GFR ( Amer) Est GFR (Non-Af Amer) POC Glucose (mg/dL) Random Glucose Calcium Total Bilirubin AST ALT Alkaline Phosphatase Total Protein Albumin Globulin Albumin/Globulin Ratio Arterial Blood Potassium Urine Color Urine Appearance Urine pH Ur Specific [place] Urine Protein Urine Glucose (UA) Urine Ketones Urine Blood Urine Nitrate Urine Bilirubin Urine Urobilinogen Ur Leukocyte Esterase Urine RBC Urine WBC Ur Epithelial Cells Amorphous Sediment Urine Bacteria Influenza Typ A,B (EIA) Radiology Impressions: Radiology Impressions Head CT 04/30/18 10:53 IMPRESSION: No evidence of acute infarct. Age related atrophy and chronic white matter ischemic change. 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 Chest/Abdomen/Pelvis CT 04/30/18 13:06 IMPRESSION: Large collection of fluid and gas most likely within the uterus, measuring up to 9.7 cm in diameter. Concerning for cervical/endometrial stenosis from neoplasm. Further evaluation is advised. Masters catheter noted within decompressed bladder. Cholelithiasis without evidence of cholecystitis. No pulmonary infiltrate. Endotracheal tube and nasogastric tube noted. Minor findings as above. To be due to Chest X-Ray 05/01/18 06:00 IMPRESSION: Support lines and tubes as above Slightly improved pulmonary venous congestive changes with residual bibasilar atelectasis left greater than right. There are also small bilateral effusions left greater than right Fingerstick Blood Sugar Results: 467 Review of Systems - Review of Systems Systems not reviewed;Unavailable: Other (recent extubation status.) Review of Systems: limited except for what was in HPI Critical Care Progress Note - Ventilator Checklist Head of Bed 30 Degrees: Yes PUD Prophalyxis: Yes DVT Prophylaxis: Yes - Nutrition Nutrition: Nutrition Category Date Time Status NPO Diet [DIET] Diets 04/29/18 Breakfast Ordered Assessment/Plan - Assessment and Plan (Free Text) Assessment: 88 year old female with past medical history of right ICA stenosis status post carotid endarterectomy, hypertension, hyperlipidemia, diabetes mellitus type II, Parkinson's disease is currently diagnosed with multisystem organ failure 2/2 to hypoperfusion from cardiogenic shock vs. distributive shock. Patient is currently on triple vasopressor therapy including levophed, vasopressin, and epinephrine; amiodarone for uncontrolled sinus tachycardia. Plan: Neuro: -Extubated today and responding to commands -Head CT showed no acute intracranial hemorrhage Parkinson's disease -Continue with levodopa/carbidopa Cardio: NSTEMI -RRR -Heparin drip discontinued today. -Continue with aspirin, plavix. Lopressor held due to hypotension. -Maintain MAP>65. -Monitor for S/S, HD compromise. Hypotension -Patient's blood pressure was checked with arterial line yesterday which showed SBP in the 150s while cuff pressure showed SBP in the 100s. -All pressors were stopped as blood pressure has been stable. -Continue to monitor blood pressure. Pulm: Hypoxic, Hypercarbic respiratory failure -Patient extubated today -ABG 05/01: pH: 7.38, pO2: 105, pCO2: 42 on 5 L of NC. NC was titrated down to 3L -Chest CT: no acute findings -Acidosis has resolved so patient was switched to LR at 75 cc/hr -Maintain O2 saturation>90%. -Head of bed to 30 degrees -Conservative fluid management -Maintain oral hygiene COPD -Continue Duonebs Q6, decreased solucortef to 25 mg Q12 -Started brovana 15 mcg Q12 and pulmicort 0.5 mg Q12 Nicotine Dependence -Nicotine patch ordered GI: Acute Liver Injury -Improved LFTs today -Abdominal CT: large collection of fluid and gas in uterus measuring 9.7 cm. Concern for cervical/endometrial stenosis for neoplasm. Cholelithiasis without cholecystitis. Diet -NPO -Follow up swallow evaluation. GI prophylaxis -Protonix 40 mg IV daily /Nephro: Acute tubular necrosis -MODS with ischemic injury to kidney leading to ATN. Improving today. -BUN/Cr improved at 67/2.3. Creatinine was 2.8 yesterday. Baseline is 1.0 -Avoid nephrotoxins such as lisinopril and losartan. -UCx shows pansensitive E. Coli covered with cefepime. -Due to nongap metabolic acidosis, patient was started on 1/2 NS with NaHCO3 at 100 cc/hr. This has now been discontinued due to resolution of acidosis and patient has been started on LR at 75 cc/hr -Good urine output. Masters intact -Continue monitoring. -Replete electrolytes as needed. -Maintain euvolemia. Endocrinology: Diabetes Mellitus type II -Random glucose: 280 -High sliding scale insulin -Maintain euglycemia. Heme/Onc: -Abdominal CT: large collection of fluid and gas in uterus measuring 9.7 cm. Concern for cervical/endometrial stenosis for neoplasm. Normocytic Anemia -H/H stable at 8.6/26.3 from Hgb of 8.1 yesterday. -No signs of HD compromise. -Continue monitoring H/H DVT prophylaxis -SCD ID: Sepsis 2/2 to UTI vs. Gastrointestinal Pathology -Afebrile, leukocytosis improved to 34.9 from 28.1 -Abdominal CT: large collection of fluid and gas in uterus measuring 9.7 cm. Concern for cervical/endometrial stenosis for neoplasm. -Blood culture: positive for gram negative jose -UCx: pansensitive E. Coli -Procalcitonin: 27.27 from 0.69 -Lactate: trending down to 1.6 from 3.4 -Continue with aztreonam day 3 and one more dose of vancomycin renally dosed. -Monitor for signs and symptoms of infection. Patient seen and examined with Dr. Ngo. - Date & Time Date: 05/01/18 Time: 12:23 <Irwin Ngo - Last Filed: 05/01/18 14:21> CCU Objective - Vital Signs / Intake & Output Vital Signs (Last 4 hours): Vital Signs Temp Pulse Resp BP Pulse Ox 05/01/18 12:00 98.2 F 96 H 130/52 L 98 05/01/18 11:46 98.2 F 93 H 149/54 L 100 05/01/18 10:18 98.1 F 92 H 23 05/01/18 10:17 98.1 F 95 H 24 05/01/18 10:16 98.1 F 89 25 H Intake and Output (Last 8hrs): Intake & Output 04/30/18 05/01/18 05/01/18 22:59 06:59 14:59 Intake Total 300 2324 Output Total 475 Balance 300 1849 Intake: IV 300 2324 antibiotics 200 bicarb 1800 heparin 108 norepinephrine 108 vasopressin 108 Output: Urine 475 Urethral (Masters) 475 Other: Voiding Method Indwelling Catheter Indwelling Catheter - Medications Active Medications: Active Medications Generic Name Dose Route Start Last Admin Trade Name Freq PRN Reason Stop Dose Admin Acetaminophen 650 mg 04/28/18 00:59 04/28/18 01:29 Tylenol 325mg Tab PO 650 mg Q6H PRN Administration Fever >100.4 F Albuterol/Ipratropium 3 ml 05/01/18 14:00 Duoneb 3 Mg/0.5 Mg (3 Ml) Ud IH [id number] [facility] Arformoterol Tartrate 15 mcg 05/01/18 20:00 Brovana IH [id number] STEVEN Aspirin 81 mg 04/27/18 10:00 05/01/18 09:43 Aspirin Chewable PO 81 mg DAILY STEVEN Administration Budesonide 0.5 mg 05/01/18 20:00 Pulmicort Respules IH [id number] STEVEN Carbidopa/Levodopa/Entacapone 1 tab 04/27/18 10:00 05/01/18 10:47 Stalevo 150 PO Not Given TID STEVEN Clopidogrel Bisulfate 75 mg 04/29/18 10:00 05/01/18 09:43 Plavix PO 75 mg DAILY STEVEN Administration Dextrose 0 ml 04/29/18 12:32 Dextrose 50% Inj IV STAT PRN Hypoglycemia Protocol Protocol Docusate Sodium 100 mg 04/27/18 10:00 04/29/18 10:33 Colace PO 100 mg BID STEVEN Administration Glyburide 5 mg 04/28/18 17:00 04/29/18 08:22 Micronase PO 5 mg 0800,1700 STEVEN Administration Hydrocortisone Sodium Succinate 25 mg 05/01/18 10:45 05/01/18 10:49 Solu-Cortef IVP 25 mg Q12H STEVEN Administration Aztreonam 100 mls @ 100 mls/hr 04/29/18 09:45 05/01/18 06:22 Azactam 1 Gm IVPB 05/06/18 09:46 100 mls/hr Q8 STEVEN Administration Protocol Dextrose 1,000 mls @ 0 mls/hr 04/29/18 12:32 Dextrose 5% In Water 1000 Ml IV .Q0M PRN Hypoglycemia Protocol Protocol Per Protocol Amiodarone HCl/Dextrose 360 mg in 200 mls @ 16.667 mls/hr 04/30/18 15:30 05/01/18 04:21 Nexterone 360 Mg In D5w 200 Ml (Premix) IV 16.667 mls/hr .Q12H STEVEN Administration Protocol 0.5 MG/MIN Ascorbic Acid 1,500 mg/ Sodium 53 mls @ 53 mls/hr 04/30/18 17:00 05/01/18 11:30 Chloride IVPB 53 mls/hr Q6H STEVEN Administration Lactated Ringer's 1,000 mls @ 75 mls/hr 05/01/18 10:45 05/01/18 10:50 Lactated Ringer's IV 75 mls/hr .[id number] STEVEN Administration Insulin Human Lispro 0 units 04/30/18 18:00 05/01/18 00:27 Humalog High SC 4 units Q6 STEVEN Administration Protocol Lisinopril 10 mg 04/27/18 10:00 04/29/18 10:25 Zestril PO Not Given DAILY STEVEN Metoprolol Tartrate 25 mg 04/28/18 08:32 04/29/18 10:25 Lopressor PO Not Given BID STEVEN Nicotine 1 patch 05/02/18 10:00 Nicoderm Cq TD DAILY STEVEN Pantoprazole Sodium 40 mg 04/29/18 10:00 05/01/18 09:43 Protonix Inj IVP 40 mg DAILY STEVEN Administration Thiamine HCl 200 mg 04/30/18 18:00 05/01/18 09:43 Vitamin B1 Inj IV 200 mg BID STEVEN Administration Zolpidem Tartrate 5 mg 04/28/18 20:25 04/28/18 22:12 Ambien PO 5 mg HS PRN Administration Insomnia Protocol - Patient Studies Lab Studies: Microbiology Studies 04/29/18 04:10 Blood Culture - Preliminary Blood-Venous Gram Negative Jose Gram Stain - Final 04/26/18 18:00 Blood Culture - Preliminary Blood NO GROWTH AFTER 4 DAYS 04/26/18 17:30 Blood Culture - Preliminary Blood NO GROWTH AFTER 4 DAYS 04/29/18 03:40 Blood Culture - Preliminary Blood-Venous Gram Negative Jose Gram Stain - Final 04/29/18 03:50 MRSA Culture (Admit) - Final Nose MRSA NOT DETECTED 04/29/18 05:15 Urine Culture - Final Urine,Clean Catch No Growth (<1,000 CFU/ML) Lab Studies 05/01/18 05/01/18 05/01/18 Range/Units 11:40 07:38 06:58 WBC (4.5-11.0) 10^3/uL RBC (3.5-6.1) 10^6/uL Hgb (12.0-16.0) g/dL Hct (36.0-48.0) % MCV (80.0-105.0) fl MCH (25.0-35.0) pg MCHC (31.0-37.0) g/dl RDW (11.5-14.5) % Plt Count (120.0-450.0) 10^3/uL MPV (7.0-11.0) fl Neut % (Auto) (50.0-68.0) % Lymph % (Auto) (22.0-35.0) % [place] % (Auto) (1.0-6.0) % Eos % (Auto) (1.5-5.0) % Baso % (Auto) (0.0-3.0) % Lymph # (Auto) (1.2-3.4) [place] # (Auto) (0.1-0.6) Eos # (Auto) (0.0-0.7) Baso # (Auto) (0.0-2.0) K/mm3 Absolute Neuts (auto) (1.4-6.5) Neutrophils % (Manual) (50.0-70.0) % Lymphocytes % (Manual) (22.0-35.0) % Monocytes % (Manual) (1.0-6.0) % Nucleated RBC % % Platelet Evaluation (NORMAL) APTT 38.9 H (26.9-38.3) Seconds pCO2 42 (35-45) mm/Hg pO2 105.0 H (80-100) mm/Hg HCO3 24.8 (21-28) mmol/L ABG pH 7.38 (7.35-7.45) ABG Total CO2 26.1 (22-28) mmol.L ABG O2 Saturation 98.4 H (95-98) % ABG O2 Content 11.5 L (15-23) ML/dl ABG Base Excess -0.3 (-2.0-3.0) mmol/L ABG Hemoglobin 8.3 L (11.7-17.4) g/dL ABG Carboxyhemoglobin 1.2 (0.5-1.5) % POC ABG HHb (Measured) 1.6 (0-5) % ABG Methemoglobin 0.7 (0.0-3.0) % ABG O2 Capacity 11.7 L (16-24) mL/dl ABG Potassium (3.6-5.2) mmol/L Hgb O2 Saturation 96.4 (95.0-98.0) % Sodium (132-148) mmol/L Chloride (98-107) mmol/L Glucose (65-105) mg/dl Lactate (0.7-2.1) mmol/L FiO2 40.0 % PEEP Pressure Support Potassium (3.6-5.0) mmol/L Carbon Dioxide (21-33) mmol/L Anion Gap (10-20) BUN (7-21) mg/dL Creatinine (0.7-1.2) mg/dl Est GFR ( Amer) Est GFR (Non-Af Amer) POC Glucose (mg/dL) 280 H (65-110) mg/dL Random Glucose (70-110) mg/dL Calcium (8.4-10.5) mg/dL Total Bilirubin (0.2-1.3) mg/dL AST (14-36) U/L ALT (7-56) U/L Alkaline Phosphatase (38-126) U/L Total Protein (5.8-8.3) g/dL Albumin (3.0-4.8) g/dL Globulin gm/dL Albumin/Globulin Ratio (1.1-1.8) Arterial Blood Potassium (3.6-5.2) mmol/L Urine Color (YELLOW) Urine Appearance (CLEAR) Urine pH (4.7-8.0) Ur Specific [place] (1.005-1.035) Urine Protein (<30 mg/dL) mg/dL Urine Glucose (UA) (NEGATIVE) mg/dL Urine Ketones (NEGATIVE) mg/dL Urine Blood (NEGATIVE) Urine Nitrate (NEGATIVE) Urine Bilirubin (NEGATIVE) Urine Urobilinogen (<1 E.U./dL) E.U./dL Ur Leukocyte Esterase (NEGATIVE) [place]/uL Urine RBC (0-2) /hpf Urine WBC (0-6) /hpf Ur Epithelial Cells (0-5) /hpf Amorphous Sediment (NONE) /hpf Urine Bacteria (NONE) /hpf Influenza Typ A,B (EIA) (NEGATIVE) 05/01/18 05/01/18 05/01/18 Range/Units 06:00 06:00 05:35 WBC 34.9 H* (4.5-11.0) 10^3/uL RBC 2.87 L (3.5-6.1) 10^6/uL Hgb 8.6 L (12.0-16.0) g/dL Hct 26.3 L (36.0-48.0) % MCV 91.6 (80.0-105.0) fl MCH 30.0 (25.0-35.0) pg MCHC 32.7 (31.0-37.0) g/dl RDW 14.2 (11.5-14.5) % Plt Count 303 (120.0-450.0) 10^3/uL MPV 10.3 (7.0-11.0) fl Neut % (Auto) 81.2 H (50.0-68.0) % Lymph % (Auto) 17.0 L (22.0-35.0) % [place] % (Auto) 1.8 (1.0-6.0) % Eos % (Auto) 0.0 L (1.5-5.0) % Baso % (Auto) 0.0 (0.0-3.0) % Lymph # (Auto) 5.9 H (1.2-3.4) [place] # (Auto) 0.6 (0.1-0.6) Eos # (Auto) 0.0 (0.0-0.7) Baso # (Auto) 0.01 (0.0-2.0) K/mm3 Absolute Neuts (auto) 28.30 H (1.4-6.5) Neutrophils % (Manual) 76 H (50.0-70.0) % Lymphocytes % (Manual) 23 (22.0-35.0) % Monocytes % (Manual) 1 (1.0-6.0) % Nucleated RBC % 1 % Platelet Evaluation Normal (NORMAL) APTT (26.9-38.3) Seconds pCO2 40 (35-45) mm/Hg pO2 87.0 (80-100) mm/Hg HCO3 22.6 (21-28) mmol/L ABG pH 7.36 (7.35-7.45) ABG Total CO2 23.8 (22-28) mmol.L ABG O2 Saturation 98.2 H (95-98) % ABG O2 Content 14.8 L (15-23) ML/dl ABG Base Excess -2.7 L (-2.0-3.0) mmol/L ABG Hemoglobin 10.9 L (11.7-17.4) g/dL ABG Carboxyhemoglobin 1.7 H (0.5-1.5) % POC ABG HHb (Measured) 1.8 (0-5) % ABG Methemoglobin 0.7 (0.0-3.0) % ABG O2 Capacity 15.1 L (16-24) mL/dl ABG Potassium (3.6-5.2) mmol/L Hgb O2 Saturation 95.8 (95.0-98.0) % Sodium 142 (132-148) mmol/L Chloride 111 H (98-107) mmol/L Glucose (65-105) mg/dl Lactate (0.7-2.1) mmol/L FiO2 35.0 % PEEP Pressure Support Potassium 3.6 (3.6-5.0) mmol/L Carbon Dioxide 23 (21-33) mmol/L Anion Gap 12 (10-20) BUN 67 H (7-21) mg/dL Creatinine 2.3 H (0.7-1.2) mg/dl Est GFR ( Amer) 24 Est GFR (Non-Af Amer) 20 POC Glucose (mg/dL) (65-110) mg/dL Random Glucose 215 H (70-110) mg/dL Calcium 6.3 L* (8.4-10.5) mg/dL Total Bilirubin 0.3 (0.2-1.3) mg/dL AST 165 H D (14-36) U/L ALT 86 H (7-56) U/L Alkaline Phosphatase 100 (38-126) U/L Total Protein 5.7 L (5.8-8.3) g/dL Albumin 2.7 L (3.0-4.8) g/dL Globulin 3.0 gm/dL Albumin/Globulin Ratio 0.9 L (1.1-1.8) Arterial Blood Potassium (3.6-5.2) mmol/L Urine Color (YELLOW) Urine Appearance (CLEAR) Urine pH (4.7-8.0) Ur Specific [place] (1.005-1.035) Urine Protein (<30 mg/dL) mg/dL Urine Glucose (UA) (NEGATIVE) mg/dL Urine Ketones (NEGATIVE) mg/dL Urine Blood (NEGATIVE) Urine Nitrate (NEGATIVE) Urine Bilirubin (NEGATIVE) Urine Urobilinogen (<1 E.U./dL) E.U./dL Ur Leukocyte Esterase (NEGATIVE) [place]/uL Urine RBC (0-2) /hpf Urine WBC (0-6) /hpf Ur Epithelial Cells (0-5) /hpf Amorphous Sediment (NONE) /hpf Urine Bacteria (NONE) /hpf Influenza Typ A,B (EIA) (NEGATIVE) 05/01/18 05/01/18 05/01/18 Range/Units 04:03 02:59 01:22 WBC (4.5-11.0) 10^3/uL RBC (3.5-6.1) 10^6/uL Hgb (12.0-16.0) g/dL Hct (36.0-48.0) % MCV (80.0-105.0) fl MCH (25.0-35.0) pg MCHC (31.0-37.0) g/dl RDW (11.5-14.5) % Plt Count (120.0-450.0) 10^3/uL MPV (7.0-11.0) fl Neut % (Auto) (50.0-68.0) % Lymph % (Auto) (22.0-35.0) % [place] % (Auto) (1.0-6.0) % Eos % (Auto) (1.5-5.0) % Baso % (Auto) (0.0-3.0) % Lymph # (Auto) (1.2-3.4) [place] # (Auto) (0.1-0.6) Eos # (Auto) (0.0-0.7) Baso # (Auto) (0.0-2.0) K/mm3 Absolute Neuts (auto) (1.4-6.5) Neutrophils % (Manual) (50.0-70.0) % Lymphocytes % (Manual) (22.0-35.0) % Monocytes % (Manual) (1.0-6.0) % Nucleated RBC % % Platelet Evaluation (NORMAL) APTT (26.9-38.3) Seconds pCO2 (35-45) mm/Hg pO2 (80-100) mm/Hg HCO3 (21-28) mmol/L ABG pH (7.35-7.45) ABG Total CO2 (22-28) mmol.L ABG O2 Saturation (95-98) % ABG O2 Content (15-23) ML/dl ABG Base Excess (-2.0-3.0) mmol/L ABG Hemoglobin (11.7-17.4) g/dL ABG Carboxyhemoglobin (0.5-1.5) % POC ABG HHb (Measured) (0-5) % ABG Methemoglobin (0.0-3.0) % ABG O2 Capacity (16-24) mL/dl ABG Potassium (3.6-5.2) mmol/L Hgb O2 Saturation (95.0-98.0) % Sodium (132-148) mmol/L Chloride (98-107) mmol/L Glucose (65-105) mg/dl Lactate (0.7-2.1) mmol/L FiO2 % PEEP Pressure Support Potassium (3.6-5.0) mmol/L Carbon Dioxide (21-33) mmol/L Anion Gap (10-20) BUN (7-21) mg/dL Creatinine (0.7-1.2) mg/dl Est GFR ( Amer) Est GFR (Non-Af Amer) POC Glucose (mg/dL) 349 H 356 H 467 H* (65-110) mg/dL Random Glucose (70-110) mg/dL Calcium (8.4-10.5) mg/dL Total Bilirubin (0.2-1.3) mg/dL AST (14-36) U/L ALT (7-56) U/L Alkaline Phosphatase (38-126) U/L Total Protein (5.8-8.3) g/dL Albumin (3.0-4.8) g/dL Globulin gm/dL Albumin/Globulin Ratio (1.1-1.8) Arterial Blood Potassium (3.6-5.2) mmol/L Urine Color (YELLOW) Urine Appearance (CLEAR) Urine pH (4.7-8.0) Ur Specific [place] (1.005-1.035) Urine Protein (<30 mg/dL) mg/dL Urine Glucose (UA) (NEGATIVE) mg/dL Urine Ketones (NEGATIVE) mg/dL Urine Blood (NEGATIVE) Urine Nitrate (NEGATIVE) Urine Bilirubin (NEGATIVE) Urine Urobilinogen (<1 E.U./dL) E.U./dL Ur Leukocyte Esterase (NEGATIVE) [place]/uL Urine RBC (0-2) /hpf Urine WBC (0-6) /hpf Ur Epithelial Cells (0-5) /hpf Amorphous Sediment (NONE) /hpf Urine Bacteria (NONE) /hpf Influenza Typ A,B (EIA) (NEGATIVE) 05/01/18 05/01/18 04/30/18 Range/Units 00:55 00:13 21:28 WBC (4.5-11.0) 10^3/uL RBC (3.5-6.1) 10^6/uL Hgb (12.0-16.0) g/dL Hct (36.0-48.0) % MCV (80.0-105.0) fl MCH (25.0-35.0) pg MCHC (31.0-37.0) g/dl RDW (11.5-14.5) % Plt Count (120.0-450.0) 10^3/uL MPV (7.0-11.0) fl Neut % (Auto) (50.0-68.0) % Lymph % (Auto) (22.0-35.0) % [place] % (Auto) (1.0-6.0) % Eos % (Auto) (1.5-5.0) % Baso % (Auto) (0.0-3.0) % Lymph # (Auto) (1.2-3.4) [place] # (Auto) (0.1-0.6) Eos # (Auto) (0.0-0.7) Baso # (Auto) (0.0-2.0) K/mm3 Absolute Neuts (auto) (1.4-6.5) Neutrophils % (Manual) (50.0-70.0) % Lymphocytes % (Manual) (22.0-35.0) % Monocytes % (Manual) (1.0-6.0) % Nucleated RBC % % Platelet Evaluation (NORMAL) APTT 40.3 H (26.9-38.3) Seconds pCO2 (35-45) mm/Hg pO2 (80-100) mm/Hg HCO3 (21-28) mmol/L ABG pH (7.35-7.45) ABG Total CO2 (22-28) mmol.L ABG O2 Saturation (95-98) % ABG O2 Content (15-23) ML/dl ABG Base Excess (-2.0-3.0) mmol/L ABG Hemoglobin (11.7-17.4) g/dL ABG Carboxyhemoglobin (0.5-1.5) % POC ABG HHb (Measured) (0-5) % ABG Methemoglobin (0.0-3.0) % ABG O2 Capacity (16-24) mL/dl ABG Potassium (3.6-5.2) mmol/L Hgb O2 Saturation (95.0-98.0) % Sodium (132-148) mmol/L Chloride (98-107) mmol/L Glucose (65-105) mg/dl Lactate (0.7-2.1) mmol/L FiO2 % PEEP Pressure Support Potassium (3.6-5.0) mmol/L Carbon Dioxide (21-33) mmol/L Anion Gap (10-20) BUN (7-21) mg/dL Creatinine (0.7-1.2) mg/dl Est GFR ( Amer) Est GFR (Non-Af Amer) POC Glucose (mg/dL) 455 H* 444 H* (65-110) mg/dL Random Glucose (70-110) mg/dL Calcium (8.4-10.5) mg/dL Total Bilirubin (0.2-1.3) mg/dL AST (14-36) U/L ALT (7-56) U/L Alkaline Phosphatase (38-126) U/L Total Protein (5.8-8.3) g/dL Albumin (3.0-4.8) g/dL Globulin gm/dL Albumin/Globulin Ratio (1.1-1.8) Arterial Blood Potassium (3.6-5.2) mmol/L Urine Color (YELLOW) Urine Appearance (CLEAR) Urine pH (4.7-8.0) Ur Specific [place] (1.005-1.035) Urine Protein (<30 mg/dL) mg/dL Urine Glucose (UA) (NEGATIVE) mg/dL Urine Ketones (NEGATIVE) mg/dL Urine Blood (NEGATIVE) Urine Nitrate (NEGATIVE) Urine Bilirubin (NEGATIVE) Urine Urobilinogen (<1 E.U./dL) E.U./dL Ur Leukocyte Esterase (NEGATIVE) [place]/uL Urine RBC (0-2) /hpf Urine WBC (0-6) /hpf Ur Epithelial Cells (0-5) /hpf Amorphous Sediment (NONE) /hpf Urine Bacteria (NONE) /hpf Influenza Typ A,B (EIA) (NEGATIVE) 04/30/18 04/30/18 04/30/18 Range/Units 17:11 16:15 16:01 WBC (4.5-11.0) 10^3/uL RBC (3.5-6.1) 10^6/uL Hgb (12.0-16.0) g/dL Hct (36.0-48.0) % MCV (80.0-105.0) fl MCH (25.0-35.0) pg MCHC (31.0-37.0) g/dl RDW (11.5-14.5) % Plt Count (120.0-450.0) 10^3/uL MPV (7.0-11.0) fl Neut % (Auto) (50.0-68.0) % Lymph % (Auto) (22.0-35.0) % [place] % (Auto) (1.0-6.0) % Eos % (Auto) (1.5-5.0) % Baso % (Auto) (0.0-3.0) % Lymph # (Auto) (1.2-3.4) [place] # (Auto) (0.1-0.6) Eos # (Auto) (0.0-0.7) Baso # (Auto) (0.0-2.0) K/mm3 Absolute Neuts (auto) (1.4-6.5) Neutrophils % (Manual) (50.0-70.0) % Lymphocytes % (Manual) (22.0-35.0) % Monocytes % (Manual) (1.0-6.0) % Nucleated RBC % % Platelet Evaluation (NORMAL) APTT (26.9-38.3) Seconds pCO2 30 L (35-45) mm/Hg pO2 67.0 L (80-100) mm/Hg HCO3 12.0 L (21-28) mmol/L ABG pH 7.21 L (7.35-7.45) ABG Total CO2 12.9 L (22-28) mmol.L ABG O2 Saturation 95.2 (95-98) % ABG O2 Content (15-23) ML/dl ABG Base Excess -14.5 L (-2.0-3.0) mmol/L ABG Hemoglobin (11.7-17.4) g/dL ABG Carboxyhemoglobin (0.5-1.5) % POC ABG HHb (Measured) (0-5) % ABG Methemoglobin (0.0-3.0) % ABG O2 Capacity (16-24) mL/dl ABG Potassium 3.9 (3.6-5.2) mmol/L Hgb O2 Saturation (95.0-98.0) % Sodium 145.0 (132-148) mmol/L Chloride 119.0 H (98-107) mmol/L Glucose 286 H (65-105) mg/dl Lactate 1.4 (0.7-2.1) mmol/L FiO2 35.0 % PEEP 5 Pressure Support 5 Potassium (3.6-5.0) mmol/L Carbon Dioxide (21-33) mmol/L Anion Gap (10-20) BUN (7-21) mg/dL Creatinine (0.7-1.2) mg/dl Est GFR ( Amer) Est GFR (Non-Af Amer) POC Glucose (mg/dL) 332 H (65-110) mg/dL Random Glucose (70-110) mg/dL Calcium (8.4-10.5) mg/dL Total Bilirubin (0.2-1.3) mg/dL AST (14-36) U/L ALT (7-56) U/L Alkaline Phosphatase (38-126) U/L Total Protein (5.8-8.3) g/dL Albumin (3.0-4.8) g/dL Globulin gm/dL Albumin/Globulin Ratio (1.1-1.8) Arterial Blood Potassium 3.9 (3.6-5.2) mmol/L Urine Color Dark yellow (YELLOW) Urine Appearance Sl cloudy (CLEAR) Urine pH 6.0 (4.7-8.0) Ur Specific [place] >= 1.030 (1.005-1.035) Urine Protein 30 H (<30 mg/dL) mg/dL Urine Glucose (UA) Negative (NEGATIVE) mg/dL Urine Ketones Trace H (NEGATIVE) mg/dL Urine Blood Large H (NEGATIVE) Urine Nitrate Negative (NEGATIVE) Urine Bilirubin Negative (NEGATIVE) Urine Urobilinogen 0.2 (<1 E.U./dL) E.U./dL Ur Leukocyte Esterase Trace H (NEGATIVE) [place]/uL Urine RBC 25 - 30 H (0-2) /hpf Urine WBC 5 - 10 H (0-6) /hpf Ur Epithelial Cells 6 - 8 H (0-5) /hpf Amorphous Sediment Small (NONE) /hpf Urine Bacteria Trace (NONE) /hpf Influenza Typ A,B (EIA) (NEGATIVE) 04/30/18 Range/Units 15:50 WBC (4.5-11.0) 10^3/uL RBC (3.5-6.1) 10^6/uL Hgb (12.0-16.0) g/dL Hct (36.0-48.0) % MCV (80.0-105.0) fl MCH (25.0-35.0) pg MCHC (31.0-37.0) g/dl RDW (11.5-14.5) % Plt Count (120.0-450.0) 10^3/uL MPV (7.0-11.0) fl Neut % (Auto) (50.0-68.0) % Lymph % (Auto) (22.0-35.0) % [place] % (Auto) (1.0-6.0) % Eos % (Auto) (1.5-5.0) % Baso % (Auto) (0.0-3.0) % Lymph # (Auto) (1.2-3.4) [place] # (Auto) (0.1-0.6) Eos # (Auto) (0.0-0.7) Baso # (Auto) (0.0-2.0) K/mm3 Absolute Neuts (auto) (1.4-6.5) Neutrophils % (Manual) (50.0-70.0) % Lymphocytes % (Manual) (22.0-35.0) % Monocytes % (Manual) (1.0-6.0) % Nucleated RBC % % Platelet Evaluation (NORMAL) APTT (26.9-38.3) Seconds pCO2 (35-45) mm/Hg pO2 (80-100) mm/Hg HCO3 (21-28) mmol/L ABG pH (7.35-7.45) ABG Total CO2 (22-28) mmol.L ABG O2 Saturation (95-98) % ABG O2 Content (15-23) ML/dl ABG Base Excess (-2.0-3.0) mmol/L ABG Hemoglobin (11.7-17.4) g/dL ABG Carboxyhemoglobin (0.5-1.5) % POC ABG HHb (Measured) (0-5) % ABG Methemoglobin (0.0-3.0) % ABG O2 Capacity (16-24) mL/dl ABG Potassium (3.6-5.2) mmol/L Hgb O2 Saturation (95.0-98.0) % Sodium (132-148) mmol/L Chloride (98-107) mmol/L Glucose (65-105) mg/dl Lactate (0.7-2.1) mmol/L FiO2 % PEEP Pressure Support Potassium (3.6-5.0) mmol/L Carbon Dioxide (21-33) mmol/L Anion Gap (10-20) BUN (7-21) mg/dL Creatinine (0.7-1.2) mg/dl Est GFR ( Amer) Est GFR (Non-Af Amer) POC Glucose (mg/dL) (65-110) mg/dL Random Glucose (70-110) mg/dL Calcium (8.4-10.5) mg/dL Total Bilirubin (0.2-1.3) mg/dL AST (14-36) U/L ALT (7-56) U/L Alkaline Phosphatase (38-126) U/L Total Protein (5.8-8.3) g/dL Albumin (3.0-4.8) g/dL Globulin gm/dL Albumin/Globulin Ratio (1.1-1.8) Arterial Blood Potassium (3.6-5.2) mmol/L Urine Color (YELLOW) Urine Appearance (CLEAR) Urine pH (4.7-8.0) Ur Specific [place] (1.005-1.035) Urine Protein (<30 mg/dL) mg/dL Urine Glucose (UA) (NEGATIVE) mg/dL Urine Ketones (NEGATIVE) mg/dL Urine Blood (NEGATIVE) Urine Nitrate (NEGATIVE) Urine Bilirubin (NEGATIVE) Urine Urobilinogen (<1 E.U./dL) E.U./dL Ur Leukocyte Esterase (NEGATIVE) [place]/uL Urine RBC (0-2) /hpf Urine WBC (0-6) /hpf Ur Epithelial Cells (0-5) /hpf Amorphous Sediment (NONE) /hpf Urine Bacteria (NONE) /hpf Influenza Typ A,B (EIA) Negative for flu a/b (NEGATIVE) Laboratory Results - last 24 hr 04/30/18 04/30/18 04/30/18 15:50 16:01 16:15 WBC RBC Hgb Hct MCV MCH MCHC RDW Plt Count MPV Neut % (Auto) Lymph % (Auto) [place] % (Auto) Eos % (Auto) Baso % (Auto) Lymph # (Auto) [place] # (Auto) Eos # (Auto) Baso # (Auto) Absolute Neuts (auto) Neutrophils % (Manual) Lymphocytes % (Manual) Monocytes % (Manual) Nucleated RBC % Platelet Evaluation APTT pCO2 pO2 HCO3 ABG pH ABG Total CO2 ABG O2 Saturation ABG O2 Content ABG Base Excess ABG Hemoglobin ABG Carboxyhemoglobin POC ABG HHb (Measured) ABG Methemoglobin ABG O2 Capacity ABG Potassium Hgb O2 Saturation Sodium Chloride Glucose Lactate FiO2 PEEP Pressure Support Potassium Carbon Dioxide Anion Gap BUN Creatinine Est GFR ( Amer) Est GFR (Non-Af Amer) POC Glucose (mg/dL) 332 H Random Glucose Calcium Total Bilirubin AST ALT Alkaline Phosphatase Total Protein Albumin Globulin Albumin/Globulin Ratio Arterial Blood Potassium Urine Color Dark yellow Urine Appearance Sl cloudy Urine pH 6.0 Ur Specific [place] >= 1.030 Urine Protein 30 H Urine Glucose (UA) Negative Urine Ketones Trace H Urine Blood Large H Urine Nitrate Negative Urine Bilirubin Negative Urine Urobilinogen 0.2 Ur Leukocyte Esterase Trace H Urine RBC 25 - 30 H Urine WBC 5 - 10 H Ur Epithelial Cells 6 - 8 H Amorphous Sediment Small Urine Bacteria Trace Influenza Typ A,B (EIA) Negative for flu a/b 04/30/18 04/30/18 05/01/18 17:11 21:28 00:13 WBC RBC Hgb Hct MCV MCH MCHC RDW Plt Count MPV Neut % (Auto) Lymph % (Auto) [place] % (Auto) Eos % (Auto) Baso % (Auto) Lymph # (Auto) [place] # (Auto) Eos # (Auto) Baso # (Auto) Absolute Neuts (auto) Neutrophils % (Manual) Lymphocytes % (Manual) Monocytes % (Manual) Nucleated RBC % Platelet Evaluation APTT pCO2 30 L pO2 67.0 L HCO3 12.0 L ABG pH 7.21 L ABG Total CO2 12.9 L ABG O2 Saturation 95.2 ABG O2 Content ABG Base Excess -14.5 L ABG Hemoglobin ABG Carboxyhemoglobin POC ABG HHb (Measured) ABG Methemoglobin ABG O2 Capacity ABG Potassium 3.9 Hgb O2 Saturation Sodium 145.0 Chloride 119.0 H Glucose 286 H Lactate 1.4 FiO2 35.0 PEEP 5 Pressure Support 5 Potassium Carbon Dioxide Anion Gap BUN Creatinine Est GFR ( Amer) Est GFR (Non-Af Amer) POC Glucose (mg/dL) 444 H* 455 H* Random Glucose Calcium Total Bilirubin AST ALT Alkaline Phosphatase Total Protein Albumin Globulin Albumin/Globulin Ratio Arterial Blood Potassium 3.9 Urine Color Urine Appearance Urine pH Ur Specific [place] Urine Protein Urine Glucose (UA) Urine Ketones Urine Blood Urine Nitrate Urine Bilirubin Urine Urobilinogen Ur Leukocyte Esterase Urine RBC Urine WBC Ur Epithelial Cells Amorphous Sediment Urine Bacteria Influenza Typ A,B (EIA) 05/01/18 05/01/18 05/01/18 00:55 01:22 02:59 WBC RBC Hgb Hct MCV MCH MCHC RDW Plt Count MPV Neut % (Auto) Lymph % (Auto) [place] % (Auto) Eos % (Auto) Baso % (Auto) Lymph # (Auto) [place] # (Auto) Eos # (Auto) Baso # (Auto) Absolute Neuts (auto) Neutrophils % (Manual) Lymphocytes % (Manual) Monocytes % (Manual) Nucleated RBC % Platelet Evaluation APTT 40.3 H pCO2 pO2 HCO3 ABG pH ABG Total CO2 ABG O2 Saturation ABG O2 Content ABG Base Excess ABG Hemoglobin ABG Carboxyhemoglobin POC ABG HHb (Measured) ABG Methemoglobin ABG O2 Capacity ABG Potassium Hgb O2 Saturation Sodium Chloride Glucose Lactate FiO2 PEEP Pressure Support Potassium Carbon Dioxide Anion Gap BUN Creatinine Est GFR ( Amer) Est GFR (Non-Af Amer) POC Glucose (mg/dL) 467 H* 356 H Random Glucose Calcium Total Bilirubin AST ALT Alkaline Phosphatase Total Protein Albumin Globulin Albumin/Globulin Ratio Arterial Blood Potassium Urine Color Urine Appearance Urine pH Ur Specific [place] Urine Protein Urine Glucose (UA) Urine Ketones Urine Blood Urine Nitrate Urine Bilirubin Urine Urobilinogen Ur Leukocyte Esterase Urine RBC Urine WBC Ur Epithelial Cells Amorphous Sediment Urine Bacteria Influenza Typ A,B (EIA) 05/01/18 05/01/18 05/01/18 04:03 05:35 06:00 WBC 34.9 H* RBC 2.87 L Hgb 8.6 L Hct 26.3 L MCV 91.6 MCH 30.0 MCHC 32.7 RDW 14.2 Plt Count 303 MPV 10.3 Neut % (Auto) 81.2 H Lymph % (Auto) 17.0 L [place] % (Auto) 1.8 Eos % (Auto) 0.0 L Baso % (Auto) 0.0 Lymph # (Auto) 5.9 H [place] # (Auto) 0.6 Eos # (Auto) 0.0 Baso # (Auto) 0.01 Absolute Neuts (auto) 28.30 H Neutrophils % (Manual) 76 H Lymphocytes % (Manual) 23 Monocytes % (Manual) 1 Nucleated RBC % 1 Platelet Evaluation Normal APTT pCO2 40 pO2 87.0 HCO3 22.6 ABG pH 7.36 ABG Total CO2 23.8 ABG O2 Saturation 98.2 H ABG O2 Content 14.8 L ABG Base Excess -2.7 L ABG Hemoglobin 10.9 L ABG Carboxyhemoglobin 1.7 H POC ABG HHb (Measured) 1.8 ABG Methemoglobin 0.7 ABG O2 Capacity 15.1 L ABG Potassium Hgb O2 Saturation 95.8 Sodium Chloride Glucose Lactate FiO2 35.0 PEEP Pressure Support Potassium Carbon Dioxide Anion Gap BUN Creatinine Est GFR ( Amer) Est GFR (Non-Af Amer) POC Glucose (mg/dL) 349 H Random Glucose Calcium Total Bilirubin AST ALT Alkaline Phosphatase Total Protein Albumin Globulin Albumin/Globulin Ratio Arterial Blood Potassium Urine Color Urine Appearance Urine pH Ur Specific [place] Urine Protein Urine Glucose (UA) Urine Ketones Urine Blood Urine Nitrate Urine Bilirubin Urine Urobilinogen Ur Leukocyte Esterase Urine RBC Urine WBC Ur Epithelial Cells Amorphous Sediment Urine Bacteria Influenza Typ A,B (EIA) 05/01/18 05/01/18 05/01/18 06:00 06:58 07:38 WBC RBC Hgb Hct MCV MCH MCHC RDW Plt Count MPV Neut % (Auto) Lymph % (Auto) [place] % (Auto) Eos % (Auto) Baso % (Auto) Lymph # (Auto) [place] # (Auto) Eos # (Auto) Baso # (Auto) Absolute Neuts (auto) Neutrophils % (Manual) Lymphocytes % (Manual) Monocytes % (Manual) Nucleated RBC % Platelet Evaluation APTT 38.9 H pCO2 pO2 HCO3 ABG pH ABG Total CO2 ABG O2 Saturation ABG O2 Content ABG Base Excess ABG Hemoglobin ABG Carboxyhemoglobin POC ABG HHb (Measured) ABG Methemoglobin ABG O2 Capacity ABG Potassium Hgb O2 Saturation Sodium 142 Chloride 111 H Glucose Lactate FiO2 PEEP Pressure Support Potassium 3.6 Carbon Dioxide 23 Anion Gap 12 BUN 67 H Creatinine 2.3 H Est GFR ( Amer) 24 Est GFR (Non-Af Amer) 20 POC Glucose (mg/dL) 280 H Random Glucose 215 H Calcium 6.3 L* Total Bilirubin 0.3 AST 165 H D ALT 86 H Alkaline Phosphatase 100 Total Protein 5.7 L Albumin 2.7 L Globulin 3.0 Albumin/Globulin Ratio 0.9 L Arterial Blood Potassium Urine Color Urine Appearance Urine pH Ur Specific [place] Urine Protein Urine Glucose (UA) Urine Ketones Urine Blood Urine Nitrate Urine Bilirubin Urine Urobilinogen Ur Leukocyte Esterase Urine RBC Urine WBC Ur Epithelial Cells Amorphous Sediment Urine Bacteria Influenza Typ A,B (EIA) 05/01/18 11:40 WBC RBC Hgb Hct MCV MCH MCHC RDW Plt Count MPV Neut % (Auto) Lymph % (Auto) [place] % (Auto) Eos % (Auto) Baso % (Auto) Lymph # (Auto) [place] # (Auto) Eos # (Auto) Baso # (Auto) Absolute Neuts (auto) Neutrophils % (Manual) Lymphocytes % (Manual) Monocytes % (Manual) Nucleated RBC % Platelet Evaluation APTT pCO2 42 pO2 105.0 H HCO3 24.8 ABG pH 7.38 ABG Total CO2 26.1 ABG O2 Saturation 98.4 H ABG O2 Content 11.5 L ABG Base Excess -0.3 ABG Hemoglobin 8.3 L ABG Carboxyhemoglobin 1.2 POC ABG HHb (Measured) 1.6 ABG Methemoglobin 0.7 ABG O2 Capacity 11.7 L ABG Potassium Hgb O2 Saturation 96.4 Sodium Chloride Glucose Lactate FiO2 40.0 PEEP Pressure Support Potassium Carbon Dioxide Anion Gap BUN Creatinine Est GFR ( Amer) Est GFR (Non-Af Amer) POC Glucose (mg/dL) Random Glucose Calcium Total Bilirubin AST ALT Alkaline Phosphatase Total Protein Albumin Globulin Albumin/Globulin Ratio Arterial Blood Potassium Urine Color Urine Appearance Urine pH Ur Specific [place] Urine Protein Urine Glucose (UA) Urine Ketones Urine Blood Urine Nitrate Urine Bilirubin Urine Urobilinogen Ur Leukocyte Esterase Urine RBC Urine WBC Ur Epithelial Cells Amorphous Sediment Urine Bacteria Influenza Typ A,B (EIA) Radiology Impressions: Radiology Impressions Head CT 04/30/18 10:53 IMPRESSION: No evidence of acute infarct. Age related atrophy and chronic white matter ischemic change. 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 Chest/Abdomen/Pelvis CT 04/30/18 13:06 IMPRESSION: Large collection of fluid and gas most likely within the uterus, measuring up to 9.7 cm in diameter. Concerning for cervical/endometrial stenosis from neoplasm. Further evaluation is advised. Masters catheter noted within decompressed bladder. Cholelithiasis without evidence of cholecystitis. No pulmonary infiltrate. Endotracheal tube and nasogastric tube noted. Minor findings as above. To be due to Chest X-Ray 05/01/18 06:00 IMPRESSION: Support lines and tubes as above Slightly improved pulmonary venous congestive changes with residual bibasilar atelectasis left greater than right. 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 Patient is currently afebrile, HD stable, OFF ALL Vasopressor support, in NAD. This morning patient was taken off sedation, placed on CPAP trial for 90 minutes, successfully extubated to 4LNC, doing well, AAOx3 Son, Marek, at the bedside, updated of clinical findings Septic Shock, resolved Gram neg bacteremia Rule out cervical, gynocological neoplams NSTEMI Hx Smoking COPD Recommend: - supp o2 as needed, duonebs PRN, Pulmicort 0.25mg BID, IS, OOB to chair - repeat BCx, adjust abx accordingly, follow up ID, abx as per ID - ECHO - hold BP meds - DC Heparin, has been on heparin for >48hr - ASA, Plavix, Statin, - monitor I/Os, Cr - Taper Solucortef - DC bicarb drip, normal pH, bicarb 23 today - Start LR n75cc/hr - GI ppx - DVT ppx, HSQ - Monitor in MICU Critical care time 45 minutes
--- NOTE | 2018-05-01 12:22 | PN ---
DATE: 05/01/2018 SUBJECTIVE: The patient is currently in the intensive unit. She is intubated and sedated and cannot give me a review of systems. PHYSICAL EXAMINATION: VITAL SIGNS: Blood pressure of 121/47, pulse rate of 91, temperature of 98.2 and respiratory rate as per the ventilator. HEENT: PERRLA. NECK: Supple. No bruits appreciated. LUNGS: Clear bilaterally. HEART: Regular rate and rhythm. ABDOMEN: Benign. NEUROLOGIC: As previously stated, the patient is sedated. There are no focal motor defects. LABORATORY DATA: Hemoglobin and hematocrit rate 8.6 and 26.3. Chemistry: BUN of 67 with a creatinine of 2.3, random glucose of 215, calcium of 6.3. AST and ALT are 165 and 86 which is down from previous. The patient had an elevated troponin day before yesterday. Blood culture, E. coli had been grown from the blood. RECOMMENDATION: We will continue current regimens with intravenous antibiotics, pressor support, ventilation support and sedation. CURRENT PROBLEMS: 1. Acute myocardial infarction. 2. Sepsis. 3. Renal failure. 4. Leukocytosis. 5. Altered mental status. Marek Devi MD
--- NOTE | 2018-05-01 13:05 | CP.PCM.APN ---
Subjective - Date & Time of Evaluation Date of Evaluation: 05/01/18 Time of Evaluation: 11:00 - Subjective Subjective: pt seen and examined at bedside, family and nurse present pt s/p extubation this am Review of Systems - Review of Systems All systems: reviewed and no additional remarkable complaints except Objective - Vital Signs/Intake and Output Vital Signs (last 24 hours): Temp Pulse Resp BP Pulse Ox 98.2 F 72 20 121/47 L 99 05/01/18 00:00 05/01/18 02:00 04/29/18 22:00 05/01/18 07:00 05/01/18 00:00 Intake and Output: 05/01/18 05/01/18 06:59 18:59 Intake Total 2374 Output Total 475 Balance 1899 - Medications Medications: Current Medications Acetaminophen (Tylenol 325mg Tab) 650 mg PO Q6H PRN PRN Reason: Fever >100.4 F Last Admin: 04/28/18 01:29 Dose: 650 mg Albuterol/Ipratropium (Duoneb 3 Mg/0.5 Mg (3 Ml) Ud) 3 ml IH [id number] [facility] Arformoterol Tartrate (Brovana) 15 mcg IH [id number] [facility] Aspirin (Aspirin Chewable) 81 mg PO DAILY [facility] Last Admin: 05/01/18 09:43 Dose: 81 mg Budesonide (Pulmicort Respules) 0.5 mg IH [id number] [facility] Carbidopa/Levodopa/Entacapone (Stalevo 150) 1 tab PO TID [facility] Last Admin: 05/01/18 10:47 Dose: Not Given Clopidogrel Bisulfate (Plavix) 75 mg PO DAILY [facility] Last Admin: 05/01/18 09:43 Dose: 75 mg Dextrose (Dextrose 50% Inj) 0 ml IV STAT PRN; Protocol PRN Reason: Hypoglycemia Protocol Docusate Sodium (Colace) 100 mg PO BID [facility] Last Admin: 04/29/18 10:33 Dose: 100 mg Glyburide (Micronase) 5 mg PO 0800,1700 [facility] Last Admin: 04/29/18 08:22 Dose: 5 mg Hydrocortisone Sodium Succinate (Solu-Cortef) 25 mg IVP Q12H [facility] Last Admin: 05/01/18 10:49 Dose: 25 mg Aztreonam (Azactam 1 Gm) 100 mls @ 100 mls/hr IVPB Q8 STEVEN; Protocol Stop: 05/06/18 09:46 Last Admin: 05/01/18 06:22 Dose: 100 mls/hr Dextrose (Dextrose 5% In Water 1000 Ml) 1,000 mls @ 0 mls/hr IV .Q0M PRN; Protocol PRN Reason: Hypoglycemia Protocol Amiodarone HCl/Dextrose (Nexterone 360 Mg In D5w 200 Ml (Premix)) 360 mg in 200 mls @ 16.667 mls/hr IV .Q12H STEVEN; Protocol Last Admin: 05/01/18 04:21 Dose: 16.667 mls/hr Ascorbic Acid 1,500 mg/ Sodium (Chloride) 53 mls @ 53 mls/hr IVPB Q6H [facility] Last Admin: 05/01/18 11:30 Dose: 53 mls/hr Lactated Ringer's (Lactated Ringer's) 1,000 mls @ 75 mls/hr IV .[id number] [facility] Last Admin: 05/01/18 10:50 Dose: 75 mls/hr Insulin Human Lispro (Humalog High) 0 units SC Q6 STEVEN; Protocol Last Admin: 05/01/18 00:27 Dose: 4 units Lisinopril (Zestril) 10 mg PO DAILY [facility] Last Admin: 04/29/18 10:25 Dose: Not Given Metoprolol Tartrate (Lopressor) 25 mg PO BID [facility] Last Admin: 04/29/18 10:25 Dose: Not Given Nicotine (Nicoderm Cq) 1 patch TD DAILY [facility] Pantoprazole Sodium (Protonix Inj) 40 mg IVP DAILY [facility] Last Admin: 05/01/18 09:43 Dose: 40 mg Thiamine HCl (Vitamin B1 Inj) 200 mg IV BID [facility] Last Admin: 05/01/18 09:43 Dose: 200 mg Zolpidem Tartrate (Ambien) 5 mg PO HS PRN; Protocol PRN Reason: Insomnia Last Admin: 04/28/18 22:12 Dose: 5 mg - Labs Labs: 05/01/18 06:00 05/01/18 06:00 PT 18.7 SECONDS (9.4-12.5) H 04/29/18 14:00 INR 1.68 04/29/18 14:00 APTT 38.9 Seconds (26.9-38.3) H 05/01/18 07:38 - Constitutional Appears: No Acute Distress, Chronically Ill - Head Exam Head Exam: NORMOCEPHALIC - Eye Exam Pupil Exam: PERRL - Respiratory Exam Respiratory Exam: Decreased Breath Sounds, Rales - Cardiovascular Exam Cardiovascular Exam: +S1, +S2 - GI/Abdominal Exam GI & Abdominal Exam: Normal Bowel Sounds - Neurological Exam Neurological Exam: Alert, Awake - Psychiatric Exam Psychiatric exam: Normal Mood - Skin Skin Exam: Dry, Intact Assessment and Plan - Assessment and Plan (Free Text) Plan: 88 yr old white female with pmh sig for htn, cad s/p pci, NIDDM, gastric ca s/p gastectomy , CLL, cva, anemia admitted s.p fall a week ago then subsequent fall on 04/25 that prompted further eval and mgmt. cardiology eval for elevated trop and ortho eval for left ankle fracture. pt hospital course was complicated by rapid response on the morning of 04/29 for resp distress, NSTEmi and PEA and was transported to unit, intubated and managed on multiple pressor support. Pt is now extubated with continued mgmt of her NSTEMI with cardiology recs noted, , hypotension, ankle fx, positive blood and urine cultures on Iv antibiotics with ID consultation and mgmt, refractory shock, metabolic acidosis and LILIAN with nephrology consultation on board Will continue to follow. Sue Grijalva APN BPCI/TIC - BPCIA/TIC Educated pt/family on BPCIA/CIR/Med to Bed Programs: Yes Flyers given, including [facility] Beneficiary letter: Yes Pt/family verbalized understanding & agreed to program: Yes
--- NOTE | 2018-05-01 13:29 | CP.PCM.CON ---
History of Present Illness - History of Present Illness History of Present Illness: 88yo female admitted to CCU for multiple issues. PEN RIDER consult called due to report of 'distended uterus aith air and gas' on CT. I reviewed report and reviewed images. Pt recently extubated. Discussed findings with patient's family Past Patient History - Infectious Disease Hx of Infectious Diseases: None - Tetanus Immunizations Tetanus Immunization: Unknown - Past Social History Smoking Status: Current Some Days Smoker - CARDIAC Hx Cardiac Disorders: Yes Hx Hypertension: Yes Other/Comment: [place], Heart surgery - PULMONARY Hx Respiratory Disorders: No - NEUROLOGICAL Hx Neurological Disorder: Yes Hx Dementia: Yes Hx Parkinson's Disease: Yes Hx Transient Ischemic Attacks (TIA): Yes - HEENT Hx HEENT Problems: No - RENAL Hx Chronic Kidney Disease: Yes - ENDOCRINE/METABOLIC Hx Endocrine Disorders: Yes Hx Diabetes Mellitus Type 2: Yes - HEMATOLOGICAL/ONCOLOGICAL Hx Blood Disorders: Yes Hx Anemia: Yes Hx Cancer: Yes - INTEGUMENTARY Hx Dermatological Problems: Yes Hx Basil Cell: Yes - MUSCULOSKELETAL/RHEUMATOLOGICAL Hx Musculoskeletal Disorders: Yes Hx Arthritis: Yes Hx Falls: Yes Hx Fractures: Yes Hx Osteoporosis: Yes Hx Unsteady Gait: Yes - GASTROINTESTINAL Hx Gastrointestinal Disorders: Yes Hx Diverticulitis: Yes Hx Gastroesophageal Reflux: Yes Other/Comment: Gastric Cancer - GENITOURINARY/GYNECOLOGICAL Hx Urinary Tract Infection: Yes - PSYCHIATRIC Hx Psychophysiologic Disorder: Yes Hx Anxiety: Yes Hx Depression: Yes Hx Substance Use: No - SURGICAL HISTORY Hx Surgeries: Yes Hx Coronary Stent: Yes Hx Open Heart Surgery: Yes - ANESTHESIA Hx Anesthesia Reactions: No Hx Malignant Hyperthermia: No Meds Allergies/Adverse Reactions: Allergies Allergy/AdvReac Type Severity Reaction Status Date / Time Penicillins Allergy ANAPHYLAXIS Verified 03/26/16 16:56 Sulfa (Sulfonamide Allergy ANAPHYLAXIS Verified 03/26/16 16:56 Antibiotics) - Medications Medications: Current Medications Acetaminophen (Tylenol 325mg Tab) 650 mg PO Q6H PRN PRN Reason: Fever >100.4 F Last Admin: 04/28/18 01:29 Dose: 650 mg Albuterol/Ipratropium (Duoneb 3 Mg/0.5 Mg (3 Ml) Ud) 3 ml IH [id number] [facility] Arformoterol Tartrate (Brovana) 15 mcg IH [id number] [facility] Aspirin (Aspirin Chewable) 81 mg PO DAILY [facility] Last Admin: 05/01/18 09:43 Dose: 81 mg Budesonide (Pulmicort Respules) 0.5 mg IH [id number] [facility] Carbidopa/Levodopa/Entacapone (Stalevo 150) 1 tab PO TID [facility] Last Admin: 05/01/18 10:47 Dose: Not Given Clopidogrel Bisulfate (Plavix) 75 mg PO DAILY [facility] Last Admin: 05/01/18 09:43 Dose: 75 mg Dextrose (Dextrose 50% Inj) 0 ml IV STAT PRN; Protocol PRN Reason: Hypoglycemia Protocol Docusate Sodium (Colace) 100 mg PO BID [facility] Last Admin: 04/29/18 10:33 Dose: 100 mg Glyburide (Micronase) 5 mg PO 0800,1700 [facility] Last Admin: 04/29/18 08:22 Dose: 5 mg Hydrocortisone Sodium Succinate (Solu-Cortef) 25 mg IVP Q12H [facility] Last Admin: 05/01/18 10:49 Dose: 25 mg Aztreonam (Azactam 1 Gm) 100 mls @ 100 mls/hr IVPB Q8 [facility]; Protocol Stop: 05/06/18 09:46 Last Admin: 05/01/18 06:22 Dose: 100 mls/hr Dextrose (Dextrose 5% In Water 1000 Ml) 1,000 mls @ 0 mls/hr IV .Q0M PRN; Protocol PRN Reason: Hypoglycemia Protocol Amiodarone HCl/Dextrose (Nexterone 360 Mg In D5w 200 Ml (Premix)) 360 mg in 200 mls @ 16.667 mls/hr IV .Q12H [facility]; Protocol Last Admin: 05/01/18 04:21 Dose: 16.667 mls/hr Ascorbic Acid 1,500 mg/ Sodium (Chloride) 53 mls @ 53 mls/hr IVPB Q6H [facility] Last Admin: 05/01/18 11:30 Dose: 53 mls/hr Lactated Ringer's (Lactated Ringer's) 1,000 mls @ 75 mls/hr IV .[id number] [facility] Last Admin: 05/01/18 10:50 Dose: 75 mls/hr Insulin Human Lispro (Humalog High) 0 units SC Q6 [facility]; Protocol Last Admin: 05/01/18 00:27 Dose: 4 units Lisinopril (Zestril) 10 mg PO DAILY [facility] Last Admin: 04/29/18 10:25 Dose: Not Given Metoprolol Tartrate (Lopressor) 25 mg PO BID [facility] Last Admin: 04/29/18 10:25 Dose: Not Given Nicotine (Nicoderm Cq) 1 patch TD DAILY [facility] Pantoprazole Sodium (Protonix Inj) 40 mg IVP DAILY [facility] Last Admin: 05/01/18 09:43 Dose: 40 mg Thiamine HCl (Vitamin B1 Inj) 200 mg IV BID [facility] Last Admin: 05/01/18 09:43 Dose: 200 mg Zolpidem Tartrate (Ambien) 5 mg PO HS PRN; Protocol PRN Reason: Insomnia Last Admin: 04/28/18 22:12 Dose: 5 mg Physical Exam - GI/Abdominal Exam GI & Abdominal Exam: Soft. absent: Distended, Tenderness Results - Vital Signs Recent Vital Signs: Last Vital Signs Temp 98.2 F 05/01/18 12:00 Pulse 96 H 05/01/18 12:00 Resp 23 05/01/18 10:18 BP 130/52 L 05/01/18 12:00 Pulse Ox 98 05/01/18 12:00 - Labs Result Diagrams: 05/01/18 06:00 05/01/18 06:00 Labs: Laboratory Results - last 24 hr 04/30/18 04/30/18 04/30/18 15:50 16:01 16:15 WBC RBC Hgb Hct MCV MCH MCHC RDW Plt Count MPV Neut % (Auto) Lymph % (Auto) Calloway % (Auto) Eos % (Auto) Baso % (Auto) Lymph # (Auto) C[place]ay # (Auto) Eos # (Auto) Baso # (Auto) Absolute Neuts (auto) Neutrophils % (Manual) Lymphocytes % (Manual) Monocytes % (Manual) Nucleated RBC % Platelet Evaluation APTT pCO2 pO2 HCO3 ABG pH ABG Total CO2 ABG O2 Saturation ABG O2 Content ABG Base Excess ABG Hemoglobin ABG Carboxyhemoglobin POC ABG HHb (Measured) ABG Methemoglobin ABG O2 Capacity ABG Potassium Hgb O2 Saturation Sodium Chloride Glucose Lactate FiO2 PEEP Pressure Support Potassium Carbon Dioxide Anion Gap BUN Creatinine Est GFR ( Amer) Est GFR (Non-Af Amer) POC Glucose (mg/dL) 332 H Random Glucose Calcium Total Bilirubin AST ALT Alkaline Phosphatase Total Protein Albumin Globulin Albumin/Globulin Ratio Arterial Blood Potassium Urine Color Dark yellow Urine Appearance Sl cloudy Urine pH 6.0 Ur Specific [place] >= 1.030 Urine Protein 30 H Urine Glucose (UA) Negative Urine Ketones Trace H Urine Blood Large H Urine Nitrate Negative Urine Bilirubin Negative Urine Urobilinogen 0.2 Ur Leukocyte Esterase Trace H Urine RBC 25 - 30 H Urine WBC 5 - 10 H Ur Epithelial Cells 6 - 8 H Amorphous Sediment Small Urine Bacteria Trace Influenza Typ A,B (EIA) Negative for flu a/b 04/30/18 04/30/18 05/01/18 17:11 21:28 00:13 WBC RBC Hgb Hct MCV MCH MCHC RDW Plt Count MPV Neut % (Auto) Lymph % (Auto) C[place]ay % (Auto) Eos % (Auto) Baso % (Auto) Lymph # (Auto) C[place]ay # (Auto) Eos # (Auto) Baso # (Auto) Absolute Neuts (auto) Neutrophils % (Manual) Lymphocytes % (Manual) Monocytes % (Manual) Nucleated RBC % Platelet Evaluation APTT pCO2 30 L pO2 67.0 L HCO3 12.0 L ABG pH 7.21 L ABG Total CO2 12.9 L ABG O2 Saturation 95.2 ABG O2 Content ABG Base Excess -14.5 L ABG Hemoglobin ABG Carboxyhemoglobin POC ABG HHb (Measured) ABG Methemoglobin ABG O2 Capacity ABG Potassium 3.9 Hgb O2 Saturation Sodium 145.0 Chloride 119.0 H Glucose 286 H Lactate 1.4 FiO2 35.0 PEEP 5 Pressure Support 5 Potassium Carbon Dioxide Anion Gap BUN Creatinine Est GFR ( Amer) Est GFR (Non-Af Amer) POC Glucose (mg/dL) 444 H* 455 H* Random Glucose Calcium Total Bilirubin AST ALT Alkaline Phosphatase Total Protein Albumin Globulin Albumin/Globulin Ratio Arterial Blood Potassium 3.9 Urine Color Urine Appearance Urine pH Ur Specific [place] Urine Protein Urine Glucose (UA) Urine Ketones Urine Blood Urine Nitrate Urine Bilirubin Urine Urobilinogen Ur Leukocyte Esterase Urine RBC Urine WBC Ur Epithelial Cells Amorphous Sediment Urine Bacteria Influenza Typ A,B (EIA) 05/01/18 05/01/18 05/01/18 00:55 01:22 02:59 WBC RBC Hgb Hct MCV MCH MCHC RDW Plt Count MPV Neut % (Auto) Lymph % (Auto) C[place]ay % (Auto) Eos % (Auto) Baso % (Auto) Lymph # (Auto) [place] # (Auto) Eos # (Auto) Baso # (Auto) Absolute Neuts (auto) Neutrophils % (Manual) Lymphocytes % (Manual) Monocytes % (Manual) Nucleated RBC % Platelet Evaluation APTT 40.3 H pCO2 pO2 HCO3 ABG pH ABG Total CO2 ABG O2 Saturation ABG O2 Content ABG Base Excess ABG Hemoglobin ABG Carboxyhemoglobin POC ABG HHb (Measured) ABG Methemoglobin ABG O2 Capacity ABG Potassium Hgb O2 Saturation Sodium Chloride Glucose Lactate FiO2 PEEP Pressure Support Potassium Carbon Dioxide Anion Gap BUN Creatinine Est GFR ( Amer) Est GFR (Non-Af Amer) POC Glucose (mg/dL) 467 H* 356 H Random Glucose Calcium Total Bilirubin AST ALT Alkaline Phosphatase Total Protein Albumin Globulin Albumin/Globulin Ratio Arterial Blood Potassium Urine Color Urine Appearance Urine pH Ur Specific [place] Urine Protein Urine Glucose (UA) Urine Ketones Urine Blood Urine Nitrate Urine Bilirubin Urine Urobilinogen Ur Leukocyte Esterase Urine RBC Urine WBC Ur Epithelial Cells Amorphous Sediment Urine Bacteria Influenza Typ A,B (EIA) 05/01/18 05/01/18 05/01/18 04:03 05:35 06:00 WBC 34.9 H* RBC 2.87 L Hgb 8.6 L Hct 26.3 L MCV 91.6 MCH 30.0 MCHC 32.7 RDW 14.2 Plt Count 303 MPV 10.3 Neut % (Auto) 81.2 H Lymph % (Auto) 17.0 L Calloway % (Auto) 1.8 Eos % (Auto) 0.0 L Baso % (Auto) 0.0 Lymph # (Auto) 5.9 H Calloway # (Auto) 0.6 Eos # (Auto) 0.0 Baso # (Auto) 0.01 Absolute Neuts (auto) 28.30 H Neutrophils % (Manual) 76 H Lymphocytes % (Manual) 23 Monocytes % (Manual) 1 Nucleated RBC % 1 Platelet Evaluation Normal APTT pCO2 40 pO2 87.0 HCO3 22.6 ABG pH 7.36 ABG Total CO2 23.8 ABG O2 Saturation 98.2 H ABG O2 Content 14.8 L ABG Base Excess -2.7 L ABG Hemoglobin 10.9 L ABG Carboxyhemoglobin 1.7 H POC ABG HHb (Measured) 1.8 ABG Methemoglobin 0.7 ABG O2 Capacity 15.1 L ABG Potassium Hgb O2 Saturation 95.8 Sodium Chloride Glucose Lactate FiO2 35.0 PEEP Pressure Support Potassium Carbon Dioxide Anion Gap BUN Creatinine Est GFR ( Amer) Est GFR (Non-Af Amer) POC Glucose (mg/dL) 349 H Random Glucose Calcium Total Bilirubin AST ALT Alkaline Phosphatase Total Protein Albumin Globulin Albumin/Globulin Ratio Arterial Blood Potassium Urine Color Urine Appearance Urine pH Ur Specific [place] Urine Protein Urine Glucose (UA) Urine Ketones Urine Blood Urine Nitrate Urine Bilirubin Urine Urobilinogen Ur Leukocyte Esterase Urine RBC Urine WBC Ur Epithelial Cells Amorphous Sediment Urine Bacteria Influenza Typ A,B (EIA) 05/01/18 05/01/18 05/01/18 06:00 06:58 07:38 WBC RBC Hgb Hct MCV MCH MCHC RDW Plt Count MPV Neut % (Auto) Lymph % (Auto) [place] % (Auto) Eos % (Auto) Baso % (Auto) Lymph # (Auto) [place] # (Auto) Eos # (Auto) Baso # (Auto) Absolute Neuts (auto) Neutrophils % (Manual) Lymphocytes % (Manual) Monocytes % (Manual) Nucleated RBC % Platelet Evaluation APTT 38.9 H pCO2 pO2 HCO3 ABG pH ABG Total CO2 ABG O2 Saturation ABG O2 Content ABG Base Excess ABG Hemoglobin ABG Carboxyhemoglobin POC ABG HHb (Measured) ABG Methemoglobin ABG O2 Capacity ABG Potassium Hgb O2 Saturation Sodium 142 Chloride 111 H Glucose Lactate FiO2 PEEP Pressure Support Potassium 3.6 Carbon Dioxide 23 Anion Gap 12 BUN 67 H Creatinine 2.3 H Est GFR ( Amer) 24 Est GFR (Non-Af Amer) 20 POC Glucose (mg/dL) 280 H Random Glucose 215 H Calcium 6.3 L* Total Bilirubin 0.3 AST 165 H D ALT 86 H Alkaline Phosphatase 100 Total Protein 5.7 L Albumin 2.7 L Globulin 3.0 Albumin/Globulin Ratio 0.9 L Arterial Blood Potassium Urine Color Urine Appearance Urine pH Ur Specific [place] Urine Protein Urine Glucose (UA) Urine Ketones Urine Blood Urine Nitrate Urine Bilirubin Urine Urobilinogen Ur Leukocyte Esterase Urine RBC Urine WBC Ur Epithelial Cells Amorphous Sediment Urine Bacteria Influenza Typ A,B (EIA) 05/01/18 11:40 WBC RBC Hgb Hct MCV MCH MCHC RDW Plt Count MPV Neut % (Auto) Lymph % (Auto) [place] % (Auto) Eos % (Auto) Baso % (Auto) Lymph # (Auto) [place] # (Auto) Eos # (Auto) Baso # (Auto) Absolute Neuts (auto) Neutrophils % (Manual) Lymphocytes % (Manual) Monocytes % (Manual) Nucleated RBC % Platelet Evaluation APTT pCO2 42 pO2 105.0 H HCO3 24.8 ABG pH 7.38 ABG Total CO2 26.1 ABG O2 Saturation 98.4 H ABG O2 Content 11.5 L ABG Base Excess -0.3 ABG Hemoglobin 8.3 L ABG Carboxyhemoglobin 1.2 POC ABG HHb (Measured) 1.6 ABG Methemoglobin 0.7 ABG O2 Capacity 11.7 L ABG Potassium Hgb O2 Saturation 96.4 Sodium Chloride Glucose Lactate FiO2 40.0 PEEP Pressure Support Potassium Carbon Dioxide Anion Gap BUN Creatinine Est GFR ( Amer) Est GFR (Non-Af Amer) POC Glucose (mg/dL) Random Glucose Calcium Total Bilirubin AST ALT Alkaline Phosphatase Total Protein Albumin Globulin Albumin/Globulin Ratio Arterial Blood Potassium Urine Color Urine Appearance Urine pH Ur Specific [place] Urine Protein Urine Glucose (UA) Urine Ketones Urine Blood Urine Nitrate Urine Bilirubin Urine Urobilinogen Ur Leukocyte Esterase Urine RBC Urine WBC Ur Epithelial Cells Amorphous Sediment Urine Bacteria Influenza Typ A,B (EIA) - Imaging and Cardiology CT scan - pelvis Status: Image reviewed by me, Report reviewed by me Assessment & Plan - Assessment and Plan (Free Text) Assessment: Pelvic fluid and gas collection on CT. Pt asymptomatic at this time. Plan: CT imaging showing air fluid levels suspicious for possible bowel. I discussed finding with primary team resident. Recommended MRI to better ascertain origin of area of concern. Please reconsult if indeed PEN RIDER source. I discussed this plan with patient's family as well and all questions answered. - Date & Time Date: 05/01/18 Time: 13:31
--- NOTE | 2018-05-01 13:34 | PN ---
DATE: 05/01/2018 SUBJECTIVE: The patient is resting comfortably in bed. No shortness of breath noted. OBJECTIVE: VITAL SIGNS: Stable. NECK: Negative JVD. LUNGS: Decreased breath sounds. HEART: Reveal S1, S2. EXTREMITIES: Without change. LABORATORY DATA: Revealed a creatinine of greater than 2. IMPRESSION: 1. Status post respiratory failure. 2. Non-ST elevation myocardial infarction. 3. Renal insufficiency. 4. Status post fracture of her ankle. Given these findings, I had a discussion with the patient's family. From a cardiac perspective, the patient should undergo cardiac catheterization. However, given her renal insufficiency, the risk of contrast nephropathy is very high. I have discussed this with the patient and family in detail. We will reevaluate possible catheterization on Friday. Eddi Page MD
--- NOTE | 2018-05-01 13:43 | CP.PCM.PN ---
<Henry Wilkins - Last Filed: 05/01/18 13:39> Subjective - Date & Time of Evaluation Date of Evaluation: 05/01/18 Time of Evaluation: 07:00 - Subjective Subjective: Infectious disease progress note: Patient seen and examined at bedside. No acute events overnight. This morning patient was extubated. Patient states that she has doing better. Denies any chest pain or S OB. 12 point ROS was performed and negative other than stated above Objective - Vital Signs/Intake and Output Vital Signs (last 24 hours): Temp Pulse Resp BP Pulse Ox 98.2 F 96 H 23 130/52 L 98 05/01/18 12:00 05/01/18 12:00 05/01/18 10:18 05/01/18 12:00 05/01/18 12:00 Intake and Output: 05/01/18 05/01/18 06:59 18:59 Intake Total 2374 Output Total 475 Balance 1899 - Medications Medications: Current Medications Acetaminophen (Tylenol 325mg Tab) 650 mg PO Q6H PRN PRN Reason: Fever >100.4 F Last Admin: 04/28/18 01:29 Dose: 650 mg Albuterol/Ipratropium (Duoneb 3 Mg/0.5 Mg (3 Ml) Ud) 3 ml IH [id number] [facility] Arformoterol Tartrate (Brovana) 15 mcg IH [id number] [facility] Aspirin (Aspirin Chewable) 81 mg PO DAILY [facility] Last Admin: 05/01/18 09:43 Dose: 81 mg Budesonide (Pulmicort Respules) 0.5 mg IH [id number] [facility] Carbidopa/Levodopa/Entacapone (Stalevo 150) 1 tab PO TID [facility] Last Admin: 05/01/18 10:47 Dose: Not Given Clopidogrel Bisulfate (Plavix) 75 mg PO DAILY [facility] Last Admin: 05/01/18 09:43 Dose: 75 mg Dextrose (Dextrose 50% Inj) 0 ml IV STAT PRN; Protocol PRN Reason: Hypoglycemia Protocol Docusate Sodium (Colace) 100 mg PO BID [facility] Last Admin: 04/29/18 10:33 Dose: 100 mg Glyburide (Micronase) 5 mg PO 0800,1700 [facility] Last Admin: 04/29/18 08:22 Dose: 5 mg Hydrocortisone Sodium Succinate (Solu-Cortef) 25 mg IVP Q12H [facility] Last Admin: 05/01/18 10:49 Dose: 25 mg Aztreonam (Azactam 1 Gm) 100 mls @ 100 mls/hr IVPB Q8 [facility]; Protocol Stop: 05/06/18 09:46 Last Admin: 05/01/18 06:22 Dose: 100 mls/hr Dextrose (Dextrose 5% In Water 1000 Ml) 1,000 mls @ 0 mls/hr IV .Q0M PRN; Protocol PRN Reason: Hypoglycemia Protocol Amiodarone HCl/Dextrose (Nexterone 360 Mg In D5w 200 Ml (Premix)) 360 mg in 200 mls @ 16.667 mls/hr IV .Q12H [facility]; Protocol Last Admin: 05/01/18 04:21 Dose: 16.667 mls/hr Ascorbic Acid 1,500 mg/ Sodium (Chloride) 53 mls @ 53 mls/hr IVPB Q6H [facility] Last Admin: 05/01/18 11:30 Dose: 53 mls/hr Lactated Ringer's (Lactated Ringer's) 1,000 mls @ 75 mls/hr IV .[id number] [facility] Last Admin: 05/01/18 10:50 Dose: 75 mls/hr Insulin Human Lispro (Humalog High) 0 units SC Q6 [facility]; Protocol Last Admin: 05/01/18 00:27 Dose: 4 units Lisinopril (Zestril) 10 mg PO DAILY [facility] Last Admin: 04/29/18 10:25 Dose: Not Given Metoprolol Tartrate (Lopressor) 25 mg PO BID [facility] Last Admin: 04/29/18 10:25 Dose: Not Given Nicotine (Nicoderm Cq) 1 patch TD DAILY [facility] Pantoprazole Sodium (Protonix Inj) 40 mg IVP DAILY [facility] Last Admin: 05/01/18 09:43 Dose: 40 mg Thiamine HCl (Vitamin B1 Inj) 200 mg IV BID [facility] Last Admin: 05/01/18 09:43 Dose: 200 mg Zolpidem Tartrate (Ambien) 5 mg PO HS PRN; Protocol PRN Reason: Insomnia Last Admin: 04/28/18 22:12 Dose: 5 mg - Labs Labs: 05/01/18 06:00 05/01/18 06:00 PT 18.7 SECONDS (9.4-12.5) H 04/29/18 14:00 INR 1.68 04/29/18 14:00 APTT 38.9 Seconds (26.9-38.3) H 05/01/18 07:38 - Constitutional Appears: No Acute Distress - Head Exam Head Exam: ATRAUMATIC, NORMOCEPHALIC - Eye Exam Eye Exam: EOMI - ENT Exam ENT Exam: Mucous Membranes Moist - Respiratory Exam Respiratory Exam: Clear to Ausculation Bilateral. absent: Rales, Wheezes - Cardiovascular Exam Cardiovascular Exam: REGULAR RHYTHM, +S1, +S2 - GI/Abdominal Exam GI & Abdominal Exam: Soft. absent: Tenderness - Extremities Exam Extremities Exam: absent: Calf Tenderness, Pedal Edema - Neurological Exam Neurological Exam: Alert, Awake, Oriented x3 - Psychiatric Exam Psychiatric exam: Normal Mood - Skin Skin Exam: Dry, Warm Assessment and Plan - Assessment and Plan (Free Text) Assessment: 88-year-old female with past medical history of hypertension, diabetes, Parkinson's, CAD, CLL presents with SIRS with fevers and leukocytosis, VDRF, R/O sepsis in this patient S/P cardiac arrest, with left leg fracture. WBCs were elevated at 34.9 likely secondary to bacteremia and/or steroid Continue Azactam day 3 and Vancomycin Follow-up septic workup; urine culture shows E. coli, and blood cultures show gram-negative lalita. Continue to monitor for any changes. Case and plan was reviewed and discussed with Dr. Becker. <Hammad Becker - Last Filed: 05/01/18 16:42> Objective - Vital Signs/Intake and Output Vital Signs (last 24 hours): Temp Pulse Resp BP Pulse Ox 98.2 F 95 H 23 130/52 L 98 05/01/18 12:00 05/01/18 14:00 05/01/18 10:18 05/01/18 12:00 05/01/18 12:00 Intake and Output: 05/01/18 05/01/18 06:59 18:59 Intake Total 2374 Output Total 475 Balance 1899 - Medications Medications: Current Medications Acetaminophen (Tylenol 325mg Tab) 650 mg PO Q6H PRN PRN Reason: Fever >100.4 F Last Admin: 04/28/18 01:29 Dose: 650 mg Albuterol/Ipratropium (Duoneb 3 Mg/0.5 Mg (3 Ml) Ud) 3 ml IH [id number] [facility] Last Admin: 05/01/18 14:23 Dose: 3 ml Arformoterol Tartrate (Brovana) 15 mcg IH [id number] [facility] Aspirin (Aspirin Chewable) 81 mg PO DAILY [facility] Last Admin: 05/01/18 09:43 Dose: 81 mg Budesonide (Pulmicort Respules) 0.5 mg IH [id number] [facility] Carbidopa/Levodopa/Entacapone (Stalevo 150) 1 tab PO TID [facility] Last Admin: 05/01/18 15:56 Dose: Not Given Clopidogrel Bisulfate (Plavix) 75 mg PO DAILY [facility] Last Admin: 05/01/18 09:43 Dose: 75 mg Dextrose (Dextrose 50% Inj) 0 ml IV STAT PRN; Protocol PRN Reason: Hypoglycemia Protocol Docusate Sodium (Colace) 100 mg PO BID [facility] Last Admin: 04/29/18 10:33 Dose: 100 mg Glyburide (Micronase) 5 mg PO 0800,1700 [facility] Last Admin: 04/29/18 08:22 Dose: 5 mg Heparin Sodium (Porcine) (Heparin) 5,000 units SC Q8 [facility]; Protocol Hydrocortisone Sodium Succinate (Solu-Cortef) 25 mg IVP Q12H [facility] Last Admin: 05/01/18 10:49 Dose: 25 mg Aztreonam (Azactam 1 Gm) 100 mls @ 100 mls/hr IVPB Q8 [facility]; Protocol Stop: 05/06/18 09:46 Last Admin: 05/01/18 14:58 Dose: 100 mls/hr Dextrose (Dextrose 5% In Water 1000 Ml) 1,000 mls @ 0 mls/hr IV .Q0M PRN; Protocol PRN Reason: Hypoglycemia Protocol Amiodarone HCl/Dextrose (Nexterone 360 Mg In D5w 200 Ml (Premix)) 360 mg in 200 mls @ 16.667 mls/hr IV .Q12H [facility]; Protocol Last Admin: 05/01/18 04:21 Dose: 16.667 mls/hr Ascorbic Acid 1,500 mg/ Sodium (Chloride) 53 mls @ 53 mls/hr IVPB Q6H [facility] Last Admin: 05/01/18 11:30 Dose: 53 mls/hr Lactated Ringer's (Lactated Ringer's) 1,000 mls @ 75 mls/hr IV .[id number] [facility] Last Admin: 05/01/18 10:50 Dose: 75 mls/hr Insulin Human Lispro (Humalog High) 0 units SC Q6 [facility]; Protocol Last Admin: 05/01/18 00:27 Dose: 4 units Lisinopril (Zestril) 10 mg PO DAILY [facility] Last Admin: 04/29/18 10:25 Dose: Not Given Metoprolol Tartrate (Lopressor) 25 mg PO BID [facility] Last Admin: 04/29/18 10:25 Dose: Not Given Nicotine (Nicoderm Cq) 1 patch TD DAILY [facility] Pantoprazole Sodium (Protonix Inj) 40 mg IVP DAILY [facility] Last Admin: 05/01/18 09:43 Dose: 40 mg Thiamine HCl (Vitamin B1 Inj) 200 mg IV BID [facility] Last Admin: 05/01/18 09:43 Dose: 200 mg Zolpidem Tartrate (Ambien) 5 mg PO HS PRN; Protocol PRN Reason: Insomnia Last Admin: 04/28/18 22:12 Dose: 5 mg - Labs Labs: 05/01/18 06:00 05/01/18 06:00 PT 18.7 SECONDS (9.4-12.5) H 04/29/18 14:00 INR 1.68 04/29/18 14:00 APTT 38.9 Seconds (26.9-38.3) H 05/01/18 07:38 Assessment and Plan - Assessment and Plan (Free Text) Assessment: Infectious diseases Attending Physician Attestation Patient seen and examined, discussed with medical case manager. I have reviewed the patient's history of present illness, past medical, social, personal and family histories, pertinent physical exam findings, course so far in this hospital admission, pertinent laboratory and imaging results. I agree with the above findings, assessment and plan. In addition, continue Azactam and gave a dose of IV Amikacin for patient with sepsis due to gram negative bacilli bacteremia, R/O intra-abdominal infection. Patient is S/P VDRF, after cardiac arrest. CT A/P showed possible uterine lesion - will get MRI abdomen and pelvis. Discussed with family at bedside.
[2018-05-01] MEDS: Albuterol-Ipratrop 3 mg / 0.5 (3 ml) UD IH SCH ×2 (14:23→20:00)
--- NOTE | 2018-05-01 15:17 | CP.PCM.PN ---
Subjective - Date & Time of Evaluation Date of Evaluation: 05/01/18 Time of Evaluation: 15:15 - Subjective Subjective: Nephrology Consultation Note: Assessment: critical Non-oliguric Acute Kidney Injury (N17.9) likely due to sepsis, hypotension, cardiac arrest leading to ATN: improving lactic acidosis, shock liver, sepsis shock, UTI, cardiac arrest and NSTEMI DM, HTN, carotid artery disease, CLL, gastric cancer, parkinson disease CKD 3 with E11.22 (diabetic kidney disease) and I12.9 (hypertensive kidney disease), age related decline sCHF with LVEF 47% hypocalcemia Plan No acute need for renal replacement therapy at this time. Maintain hemodynamics stable. Avoid hypotension. Patient not on ACEI/ARB due to recent LILIAN Monitor Input/Output, daily weights and renal function with basic metabolic panel continue with IVF as LR supplement lytes as needed once UTI better, check urine spot protein/creatinine, albumin/creatinine ratio. once stable then will do renal sonogram Dose meds/antibiotics for reduced GFR. Avoid fleets enema/magnesium based laxatives. Avoid nephrotoxins/NSAIDs/ iodinated contrast (unless needed emergently) Glycemic control Further work up/management as per primary team Thanks for allowing me to participate in care of your patient. Will follow patient with you. Please call if any Qs. had d/w team and family bedside Dr Gutierrez [place] Office: [phone] Chief Complaint; unable to obtain source of Info: EMR Reason for consult: Acute Kidney Injury HPI: Pt is a 88 F with hx of DM (years), HTN carotid artery disease, CLL, gastric cancer, parkinson disease CKD 3 with baseline cr 1.4 in 2018 presented with complaints of fall, ankle fracture, being managed for sepsis shock, UTI, cardiac arrest and NSTEMI. Denies OTC/herbal meds or NSAIDs No recent iodinated contrast exposure. Noted obvious episodes of low BP (SBP in 60s). renal consult for LILIAN. family not aware of renal disease in past ROS: pt not able to communicate much. extubated. Physical Examination: General Appearance: Comfortable, in no acute respiratory distress Vitals reviewed and noted as below Head; Atraumatic, normocephalic ENT: no ulcers no thrush. Tongue is midline. Oropharynx: no rash or ulcers. EYES: Pupils are equal, round Sclera is anicteric. Neck; supple no lymphadenopathy, no thyromegaly or bruit Lungs: Normal respiratory rate/effort. Breath sounds bilateral rales+ Heart: Normal rate. s1s2 normal. No rub or gallop. Extremities: no edema. No varicose veins Neurological: Patient is arousable Skin: Warm and dry. Normal turgor. No rash. Palpitation: Normal elasticity for age Abdomen: Abdomen is soft. Bowel sounds +. There is no abdominal tenderness, no guarding/rigidity no organomegaly Psych: unable MSK: no joint tenderness or swelling. Digits and nails normal, no deformity : kidney or bladder not palpable. has klein Labs/imaging reviewed. Past medical history, past surgical history, family history, social history, allergy reviewed and noted as below Family hx: no hx of CKD. Rest non-contributory Objective - Vital Signs/Intake and Output Vital Signs (last 24 hours): Temp Pulse Resp BP Pulse Ox 98.2 F 96 H 23 130/52 L 98 05/01/18 12:00 05/01/18 12:00 05/01/18 10:18 05/01/18 12:00 05/01/18 12:00 Intake and Output: 05/01/18 05/01/18 06:59 18:59 Intake Total 2374 Output Total 475 Balance 1899 - Medications Medications: Current Medications Acetaminophen (Tylenol 325mg Tab) 650 mg PO Q6H PRN PRN Reason: Fever >100.4 F Last Admin: 04/28/18 01:29 Dose: 650 mg Albuterol/Ipratropium (Duoneb 3 Mg/0.5 Mg (3 Ml) Ud) 3 ml IH [id number] [facility] Last Admin: 05/01/18 14:23 Dose: 3 ml Arformoterol Tartrate (Brovana) 15 mcg IH [id number] [facility] Aspirin (Aspirin Chewable) 81 mg PO DAILY [facility] Last Admin: 05/01/18 09:43 Dose: 81 mg Budesonide (Pulmicort Respules) 0.5 mg IH [id number] [facility] Carbidopa/Levodopa/Entacapone (Stalevo 150) 1 tab PO TID [facility] Last Admin: 05/01/18 10:47 Dose: Not Given Clopidogrel Bisulfate (Plavix) 75 mg PO DAILY [facility] Last Admin: 05/01/18 09:43 Dose: 75 mg Dextrose (Dextrose 50% Inj) 0 ml IV STAT PRN; Protocol PRN Reason: Hypoglycemia Protocol Docusate Sodium (Colace) 100 mg PO BID [facility] Last Admin: 04/29/18 10:33 Dose: 100 mg Glyburide (Micronase) 5 mg PO 0800,1700 [facility] Last Admin: 04/29/18 08:22 Dose: 5 mg Heparin Sodium (Porcine) (Heparin) 5,000 units SC Q8 [facility]; Protocol Hydrocortisone Sodium Succinate (Solu-Cortef) 25 mg IVP Q12H [facility] Last Admin: 05/01/18 10:49 Dose: 25 mg Aztreonam (Azactam 1 Gm) 100 mls @ 100 mls/hr IVPB Q8 [facility]; Protocol Stop: 05/06/18 09:46 Last Admin: 05/01/18 14:58 Dose: 100 mls/hr Dextrose (Dextrose 5% In Water 1000 Ml) 1,000 mls @ 0 mls/hr IV .Q0M PRN; Protocol PRN Reason: Hypoglycemia Protocol Amiodarone HCl/Dextrose (Nexterone 360 Mg In D5w 200 Ml (Premix)) 360 mg in 200 mls @ 16.667 mls/hr IV .Q12H [facility]; Protocol Last Admin: 05/01/18 04:21 Dose: 16.667 mls/hr Ascorbic Acid 1,500 mg/ Sodium (Chloride) 53 mls @ 53 mls/hr IVPB Q6H [facility] Last Admin: 05/01/18 11:30 Dose: 53 mls/hr Lactated Ringer's (Lactated Ringer's) 1,000 mls @ 75 mls/hr IV .[id number] [facility] Last Admin: 05/01/18 10:50 Dose: 75 mls/hr Insulin Human Lispro (Humalog High) 0 units SC Q6 [facility]; Protocol Last Admin: 05/01/18 00:27 Dose: 4 units Lisinopril (Zestril) 10 mg PO DAILY [facility] Last Admin: 04/29/18 10:25 Dose: Not Given Metoprolol Tartrate (Lopressor) 25 mg PO BID [facility] Last Admin: 04/29/18 10:25 Dose: Not Given Nicotine (Nicoderm Cq) 1 patch TD DAILY [facility] Pantoprazole Sodium (Protonix Inj) 40 mg IVP DAILY [facility] Last Admin: 05/01/18 09:43 Dose: 40 mg Thiamine HCl (Vitamin B1 Inj) 200 mg IV BID [facility] Last Admin: 05/01/18 09:43 Dose: 200 mg Zolpidem Tartrate (Ambien) 5 mg PO HS PRN; Protocol PRN Reason: Insomnia Last Admin: 04/28/18 22:12 Dose: 5 mg - Labs Labs: 05/01/18 06:00 05/01/18 06:00 PT 18.7 SECONDS (9.4-12.5) H 04/29/18 14:00 INR 1.68 04/29/18 14:00 APTT 38.9 Seconds (26.9-38.3) H 05/01/18 07:38
[2018-05-01] MEDS: Arformoterol 15 mcg/2 ml Inh Sol IH SCH (20:19)
[2018-05-01] MEDS: Budesonide 0.5 mg/2 ml Inhal Susp UD IH SCH (20:19)
[2018-05-02] MEDS: Albuterol-Ipratrop 3 mg / 0.5 (3 ml) UD IH SCH (03:14)
[2018-05-02] MEDS: Lactated Ringer's 1,000 ML IV SCH (04:32)
[2018-05-02] MEDS: Aztreonam 1 Gm in NS 100mL 100 ML IVPB SCH ×3 (05:10→21:36)
[2018-05-02 05:25] LABS: ARTERIAL BLOOD GAS HCO3 25.4 mmol/L (21-28); ARTERIAL BLOOD GAS HEMOGLOBIN 7.8 g/dL (11.7-17.4); ARTERIAL BLOOD GAS O2 CAPACITY 10.8 mL/dl (16-24); ARTERIAL BLOOD GAS O2 CONTENT 10.6 ML/dl (15-23); ARTERIAL BLOOD GAS O2 SAT 98.3 % (95-98); ARTERIAL BLOOD GAS PCO2 44 mm/Hg (35-45); ARTERIAL BLOOD GAS PH 7.37 (7.35-7.45); ARTERIAL BLOOD GAS TCO2 26.8 mmol.L (22-28)
[2018-05-02] MEDS: Insulin Lispro (HUMAlog) HIGH Coverage SC SCH ×4 (06:10→17:04)
[2018-05-02 07:06] LABS: ALB/GLOB RATIO 0.9 (1.1-1.8); ALBUMIN 2.2 g/dL (3.0-4.8); CALCIUM 6.6 mg/dL (8.4-10.5)
[2018-05-02 07:31] LABS: BASO # 0.01 K/mm3 (0.0-2.0); HEMOGLOBIN 7.7 g/dL (12.0-16.0); LYMPH # 3.8 (1.2-3.4); MEAN CELL VOLUME 92.2 fl (80.0-105.0); MEAN CORPUSCULAR HEMOGLOBIN 30.2 pg (25.0-35.0); MEAN CORPUSCULAR HGB CONC 32.8 g/dl (31.0-37.0); MEAN PLATELET VOLUME 10.3 fl (7.0-11.0); MONO # 0.4 (0.1-0.6); RBC 2.55 10^6/uL (3.5-6.1); RED CELL DISTRIBUTION WIDTH 14.7 % (11.5-14.5); WHITE BLOOD COUNT 22.5 10^3/uL (4.5-11.0)
[2018-05-02] MEDS: Arformoterol 15 mcg/2 ml Inh Sol IH SCH ×2 (07:38→20:35)
[2018-05-02] MEDS: Budesonide 0.5 mg/2 ml Inhal Susp UD IH SCH ×2 (07:39→20:35)
[2018-05-02] MEDS ORDERED: Potassium Chloride 40 mEq/30 ml LIQ UD PO ONE (07:45)
[2018-05-02] MEDS: Thiamine 100 mg/ml Inj IV SCH ×2 (09:30→17:03)
--- NOTE | 2018-05-02 10:17 | PN ---
SUBJECTIVE: The patient was seen and examined at bedside in the CCU. No acute events overnight. The patient has been extubated and remains afebrile and hemodynamically stable off vasopressor support. This morning she is awake and alert and is able to answer simple questions. PHYSICAL EXAMINATION: VITAL SIGNS: T 96.8, P 105, BP 114/47, RR 20, oxygen saturation 100% on nonrebreather mask. GENERAL: Frail elderly woman appearing her stated age, sitting up in bed in no apparent distress. HEENT: PERRL, EOMI. No scleral icterus. Conjunctival pallor is noted. NECK: No JVD. CARDIOVASCULAR: Tachycardic. Normal S1, S2. Grade II/ KERMIT to LLSB. LUNGS: Scattered wheeze with rhonchi. ABDOMEN: Normoactive bowel sounds, soft, nondistended, tender to palpation to lower abdomen with voluntary guarding. EXTREMITIES: No edema. Left ankle with NARENDRA wrapping in place. NEUROLOGIC: Awake and alert. Moving all extremities. LABORATORY DATA: WBC 22.5 with 81% neutrophils, hemoglobin 7.7, hematocrit 24, platelets 221. Sodium 144, potassium 3.4, chloride 110, bicarb 28, BUN 70, creatinine 2.2, glucose 128. Blood cultures with gram-negative rods. Urine culture with E-coli and sensitivities noted. IMAGING STUDIES: CT of the chest, abdomen & pelvis without contrast demonstrated a large collection of fluid and gas within the uterus concerning for neoplasm. ASSESSMENT: The patient is an 88-year-old woman with a past medical history of Parkinson disease with recurrent falls who was initially admitted to the general medical [facility] s/p mechanical fall with resultant left ankle fracture whose hospital course was complicated by NSTEMI with PEA arrest and who was subsequently transferred to the CCU for continued care. PLAN: 1. s/p PEA arrest. The patient remains extubated, off vasopressor support and demonstrating gradual clinical improvement. Continue with care as per CCU team. 2. Acute hypoxic respiratory failure s/p extubation. Input from Dr. Aguilar noted. Continue with care as per CCU team. 3. NSTEMI. Input from Dr. Page noted. Continue with Aspirin 81 mg p.o. daily, Plavix 75 mg p.o. daily and Lipitor 40 mg p.o. daily. The patient will likely require cardiac catheterization when medically stabilized. 4. Acute systolic heart failure, resolved. The patient remains off ionotropic and vasopressor support. Continue with care as per Dr. Page. 5. Septic shock, likely secondary to intraabdominal source, improving. Input from Dr. Becker noted. Continue with antimicrobials as per Dr. Becker. Continue to monitor for fever and leukocytosis. 6. 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 Input from Dr. Guevara noted. MRI of the abdomen and pelvis pending for further evaluation. 7. LILIAN, etiology likely secondary to ATN, improving. Input from Dr. [place] noted. Continue with gentle IV fluid hydration, monitoring strict I&O's, renally dosing medications and avoiding nephrotoxins. 8. Transaminitis, etiology likely secondary shock liver in the setting of PEA arrest, resolving. Continue to monitor CMP daily. 9. Acute fracture of the distal left fibula. Input from Dr. Hendrix noted and no need for acute surgical intervention. 10. Non-insulin dependent diabetes mellitus. Continue medium-dose insulin sliding scale for coverage. 11. Parkinson disease. Continue Stalevo 150 mg p.o. t.i.d. 12. Anemia of chronic disease. Continue to monitor CBC and transfuse as needed. 13. Hypertension. Antihypertensives remain on hold. Continue to monitor hemodynamics and adjust antihypertensives as needed. 14. History of gastric cancer s/p subtotal gastrectomy. 15. History of chronic lymphocytic leukemia. 16. Prophylaxis. Continue Protonix for GI prophylaxis. Continue with Heparin for DVT prophylaxis. CODE STATUS: Full code. Antonio Devi MD MTDD
--- NOTE | 2018-05-02 10:37 | RAD ---
Date of service: 05/02/2018 HISTORY: Follow up COMPARISON: Comparison chest 05/01/2018 at 0532 hr FINDINGS: In situ right IJ central line with tip in the SVC/RA junction. LUNGS: Mild pulmonary venous congestive changes possibly chronic compensated CHF. Bibasilar atelectasis left greater than right. Suspect small bilateral effusions left larger than right. PLEURA: As above. Pneumothorax apparent. CARDIOVASCULAR: Mild aortic atherosclerotic calcification present. Cardiomegaly. OSSEOUS STRUCTURES: No significant abnormalities. VISUALIZED UPPER ABDOMEN: Normal. OTHER FINDINGS: None. IMPRESSION: Mild pulmonary venous congestive changes possibly chronic compensated CHF. Bibasilar atelectasis left greater than right. Suspect small bilateral effusions left larger than right.
--- NOTE | 2018-05-02 11:40 | CP.PCM.PN ---
Subjective - Date & Time of Evaluation Date of Evaluation: 05/02/18 Time of Evaluation: 11:39 - Subjective Subjective: Nephrology Consultation Note: Assessment: critical Non-oliguric Acute Kidney Injury (N17.9) likely due to sepsis, hypotension, cardiac arrest leading to ATN: improving lactic acidosis, shock liver, sepsis shock, UTI, cardiac arrest and NSTEMI DM, HTN, carotid artery disease, CLL, gastric cancer, parkinson disease CKD 3 with E11.22 (diabetic kidney disease) and I12.9 (hypertensive kidney disease), age related decline sCHF with LVEF 47% hypocalcemia Uetrine mass Plan No acute need for renal replacement therapy at this time. Maintain hemodynamics stable. Avoid hypotension. Patient not on ACEI/ARB due to recent LILIAN Monitor Input/Output, daily weights and renal function with basic metabolic panel d/c IVF. can give lasix as needed as allowed by BP supplement lytes as needed Dose meds/antibiotics for reduced GFR. Avoid fleets enema/magnesium based laxatives. Avoid nephrotoxins/NSAIDs/ iodinated contrast (unless needed emerge ntly) Glycemic control Further work up/management as per primary team Thanks for allowing me to participate in care of your patient. Will follow patient with you. Please call if any Qs. had d/w team and family bedside Dr Gutierrez [place] Office: [phone] Chief Complaint; unable to obtain source of Info: EMR Reason for consult: Acute Kidney Injury HPI: Pt is a 88 F with hx of DM (years), HTN carotid artery disease, CLL, gastric cancer, parkinson disease CKD 3 with baseline cr 1.4 in 2018 presented with complaints of fall, ankle fracture, being managed for sepsis shock, UTI, cardiac arrest and NSTEMI. Denies OTC/herbal meds or NSAIDs No recent iodinated contrast exposure. Noted obvious episodes of low BP (SBP in 60s). renal consult for LILIAN. family not aware of renal disease in past ROS: pt not able to communicate much. extubated. Physical Examination: General Appearance: Comfortable, in no acute respiratory distress Vitals reviewed and noted as below Head; Atraumatic, normocephalic ENT: no ulcers no thrush. Tongue is midline. Oropharynx: no rash or ulcers. EYES: Pupils are equal, round Sclera is anicteric. Neck; supple no lymphadenopathy, no thyromegaly or bruit Lungs: Normal respiratory rate/effort. Breath sounds bilateral rales+ and reduced at bases Heart: Normal rate. s1s2 normal. No rub or gallop. Extremities: no edema. No varicose veins Neurological: Patient is arousable Skin: Warm and dry. Normal turgor. No rash. Palpitation: Normal elasticity for age Abdomen: Abdomen is soft. Bowel sounds +. There is no abdominal tenderness, no guarding/rigidity no organomegaly Psych: unable MSK: no joint tenderness or swelling. Digits and nails normal, no deformity : kidney or bladder not palpable. has klein Labs/imaging reviewed. Past medical history, past surgical history, family history, social history, allergy reviewed and noted as below Family hx: no hx of CKD. Rest non-contributory Objective - Vital Signs/Intake and Output Vital Signs (last 24 hours): Temp Pulse Resp BP Pulse Ox 96.8 F L 105 H 20 114/47 L 100 05/02/18 06:01 05/02/18 06:01 05/02/18 07:43 05/02/18 06:01 05/02/18 07:43 Intake and Output: 05/02/18 05/02/18 06:59 18:59 Intake Total 900 Output Total 275 Balance 625 - Medications Medications: Current Medications Acetaminophen (Tylenol 325mg Tab) 650 mg PO Q6H PRN PRN Reason: Fever >100.4 F Last Admin: 04/28/18 01:29 Dose: 650 mg Albuterol/Ipratropium (Duoneb 3 Mg/0.5 Mg (3 Ml) Ud) 3 ml IH [id number] PRN PRN Reason: Shortness of Breath Arformoterol Tartrate (Brovana) 15 mcg IH [id number] [facility] Last Admin: 05/02/18 07:38 Dose: 15 mcg Aspirin (Aspirin Chewable) 81 mg PO DAILY [facility] Last Admin: 05/01/18 09:43 Dose: 81 mg Atorvastatin Calcium (Lipitor) 40 mg PO DIN [facility] Budesonide (Pulmicort Respules) 0.5 mg IH [id number] [facility] Last Admin: 05/02/18 07:39 Dose: 0.5 mg Carbidopa/Levodopa/Entacapone (Stalevo 150) 1 tab PO TID [facility] Last Admin: 05/01/18 18:12 Dose: Not Given Clopidogrel Bisulfate (Plavix) 75 mg PO DAILY [facility] Last Admin: 05/01/18 09:43 Dose: 75 mg Dextrose (Dextrose 50% Inj) 0 ml IV STAT PRN; Protocol PRN Reason: Hypoglycemia Protocol Docusate Sodium (Colace) 100 mg PO BID [facility] Last Admin: 04/29/18 10:33 Dose: 100 mg Glyburide (Micronase) 5 mg PO 0800,1700 [facility] Last Admin: 04/29/18 08:22 Dose: 5 mg Heparin Sodium (Porcine) (Heparin) 5,000 units SC Q8 [facility]; Protocol Last Admin: 05/02/18 05:11 Dose: 5,000 units Hydrocortisone Sodium Succinate (Solu-Cortef) 25 mg IVP Q12H [facility] Last Admin: 05/01/18 23:25 Dose: 25 mg Aztreonam (Azactam 1 Gm) 100 mls @ 100 mls/hr IVPB Q8 [facility]; Protocol Stop: 05/06/18 09:46 Last Admin: 05/02/18 05:10 Dose: 100 mls/hr Dextrose (Dextrose 5% In Water 1000 Ml) 1,000 mls @ 0 mls/hr IV .Q0M PRN; Protocol PRN Reason: Hypoglycemia Protocol Amiodarone HCl/Dextrose (Nexterone 360 Mg In D5w 200 Ml (Premix)) 360 mg in 200 mls @ 16.667 mls/hr IV .Q12H [facility]; Protocol Last Admin: 05/01/18 04:21 Dose: 16.667 mls/hr Ascorbic Acid 1,500 mg/ Sodium (Chloride) 53 mls @ 53 mls/hr IVPB Q6H [facility] Last Admin: 05/02/18 09:59 Dose: 53 mls/hr Potassium Chloride (Potassium Chloride 20 Meq/100 Ml) 20 meq in 100 mls @ 50 mls/hr IVPB Q2H [facility] Stop: 05/02/18 13:14 Last Admin: 05/02/18 09:26 Dose: 50 mls/hr Metronidazole (Flagyl) 500 mg in 100 mls @ 100 mls/hr IVPB Q8 [facility]; Protocol Insulin Human Lispro (Humalog High) 0 units SC Q6 [facility]; Protocol Last Admin: 05/02/18 06:10 Dose: Not Given Lisinopril (Zestril) 10 mg PO DAILY [facility] Last Admin: 04/29/18 10:25 Dose: Not Given Metoprolol Tartrate (Lopressor) 25 mg PO BID [facility] Last Admin: 04/29/18 10:25 Dose: Not Given Nicotine (Nicoderm Cq) 1 patch TD DAILY [facility] Pantoprazole Sodium (Protonix Inj) 40 mg IVP DAILY [facility] Last Admin: 05/02/18 09:31 Dose: 40 mg Thiamine HCl (Vitamin B1 Inj) 200 mg IV BID [facility] Last Admin: 05/02/18 09:30 Dose: 200 mg Zolpidem Tartrate (Ambien) 5 mg PO HS PRN; Protocol PRN Reason: Insomnia Last Admin: 04/28/18 22:12 Dose: 5 mg - Labs Labs: 05/02/18 05:30 05/02/18 05:30 PT 18.7 SECONDS (9.4-12.5) H 04/29/18 14:00 INR 1.68 04/29/18 14:00 APTT 38.9 Seconds (26.9-38.3) H 05/01/18 07:38
[2018-05-02] MEDS ORDERED: Sodium Chloride 0.9% 1,000 ML IV STA (11:58)
[2018-05-02] MEDS: Albuterol-Ipratrop 3 mg / 0.5 (3 ml) UD IH PRN (13:51)
[2018-05-02] MEDS: metroNIDAZOLE IV 500 mg/100 ml 500 MG/100 ML BAG IVPB SCH ×2 (14:00→21:36)
--- NOTE | 2018-05-02 14:03 | PN ---
DATE: 05/02/2018 SUBJECTIVE: An 88-year-old female, left ankle fracture that does not need surgery. I put her in a soft boot and we are waiting for the walking boot to come in probably will be until next week, then we can get her up out of bed and ambulate, as no surgery is no needed for this stable fracture. We will just monitor her progress; hopefully, when she gets fully recuperated, we could either send her to a subacute rehab or to the home with help. FINAL DIAGNOSIS: Stable left ankle fracture that does not need surgery. Anil Hendrix DO
--- NOTE | 2018-05-02 14:21 | CP.CCUPN ---
<Sandee Huang - Last Filed: 05/02/18 14:30> CCU Subjective - Physician Review Subjective (Free Text): Sandee Huang, PGY-1, ICU Progress Note for Dr. Ngo Patient seen and evaluated at bedside. This morning, arterial and central venous line were removed. Patient is AAOx2. Patient is resting in bed in no acute distress. Patient reports shortness of breath and thirst upon presentation. 12- point ROS was incomplete due to patient's mental status. CCU Objective - Vital Signs / Intake & Output Intake and Output (Last 8hrs): Intake & Output 05/01/18 05/02/18 05/02/18 22:59 06:59 14:59 Intake Total 1337 900 Output Total 550 275 Balance 787 625 Intake: IV 1337 900 Right Internal Jugular 1337 maintenance 900 Output: Urine 150 275 Urethral (Masters) 150 275 Stool 400 Other: Voiding Method Indwelling Catheter - Physical Exam Head: Positive for: Atraumatic, Normocephalic Pupils: Positive for: PERRL Extroacular Muscles: Positive for: EOMI Mouth: Positive for: Moist Mucous Membranes Neck: Positive for: Normal Range of Motion Respiratory/Chest: Positive for: Good Air Exchange. Negative for: Respiratory Distress, Accessory Muscle Use Cardiovascular: Positive for: Regular Rate and Rhythm, Normal S1, S2. Negative for: Murmurs Abdomen: Negative for: Tenderness, Distention, Peritoneal Signs Upper Extremity: Positive for: Normal ROM, NORMAL PULSES, Other (multiple small ecchymotic areas consistent with multiple falls). Negative for: Cyanosis, Edema, Tenderness, Swelling Lower Extremity: Positive for: Edema (left ankle), NORMAL PULSES, Tenderness (left ankle), Swelling (left ankle), Neurovascularly Intact, Capillary Refill < 2 s. Negative for: CALF TENDERNESS, Normal ROM (decreased ROM d/t swelling at left nakle normal ROm in all other lowere extremity joints) Neurological: Positive for: GCS=15, CN II-XII Intact Skin: Positive for: Warm, Dry Psychiatric: Positive for: Alert, Oriented x 3 (AAOx2), Normal Concentration, Other (recently extubated). Negative for: Normal Insight - Medications Active Medications: Active Medications Generic Name Dose Route Start Last Admin Trade Name Freq PRN Reason Stop Dose Admin Acetaminophen 650 mg 04/28/18 00:59 04/28/18 01:29 Tylenol 325mg Tab PO 650 mg Q6H PRN Administration Fever >100.4 F Albuterol/Ipratropium 3 ml 05/02/18 07:13 05/02/18 13:51 Duoneb 3 Mg/0.5 Mg (3 Ml) Ud IH 3 ml [id number] PRN Administration Shortness of Breath Arformoterol Tartrate 15 mcg 05/01/18 20:00 05/02/18 07:38 Brovana IH 15 mcg [id number] STEVEN Administration Aspirin 81 mg 04/27/18 10:00 05/01/18 09:43 Aspirin Chewable PO 81 mg DAILY STEVEN Administration Atorvastatin Calcium 40 mg 05/02/18 17:00 Lipitor PO DIN [facility] Budesonide 0.5 mg 05/01/18 20:00 05/02/18 07:39 Pulmicort Respules IH 0.5 mg [id number] STEVEN Administration Carbidopa/Levodopa/Entacapone 1 tab 04/27/18 10:00 05/01/18 18:12 Stalevo 150 PO Not Given TID [facility] Clopidogrel Bisulfate 75 mg 04/29/18 10:00 05/01/18 09:43 Plavix PO 75 mg DAILY STEVEN Administration Dextrose 0 ml 04/29/18 12:32 Dextrose 50% Inj IV STAT PRN Hypoglycemia Protocol Protocol Docusate Sodium 100 mg 04/27/18 10:00 04/29/18 10:33 Colace PO 100 mg BID STEVEN Administration Glyburide 5 mg 04/28/18 17:00 04/29/18 08:22 Micronase PO 5 mg 0800,1700 STEVEN Administration Heparin Sodium (Porcine) 5,000 units 05/01/18 22:00 05/02/18 05:11 Heparin SC 5,000 units Q8 STEVEN Administration Protocol Hydrocortisone Sodium Succinate 25 mg 05/01/18 10:45 05/02/18 11:53 Solu-Cortef IVP 25 mg Q12H STEVEN Administration Aztreonam 100 mls @ 100 mls/hr 04/29/18 09:45 05/02/18 05:10 Azactam 1 Gm IVPB 05/06/18 09:46 100 mls/hr Q8 STEVEN Administration Protocol Dextrose 1,000 mls @ 0 mls/hr 04/29/18 12:32 Dextrose 5% In Water 1000 Ml IV .Q0M PRN Hypoglycemia Protocol Protocol Per Protocol Amiodarone HCl/Dextrose 360 mg in 200 mls @ 16.667 mls/hr 04/30/18 15:30 05/01/18 04:21 Nexterone 360 Mg In D5w 200 Ml (Premix) IV 16.667 mls/hr .Q12H STEVEN Administration Protocol 0.5 MG/MIN Ascorbic Acid 1,500 mg/ Sodium 53 mls @ 53 mls/hr 04/30/18 17:00 05/02/18 09:59 Chloride IVPB 53 mls/hr Q6H STEVEN Administration Metronidazole 500 mg in 100 mls @ 100 mls/hr 05/02/18 14:00 Flagyl IVPB Q8 STEVEN Protocol Sodium Chloride 1,000 mls @ 75 mls/hr 05/02/18 11:58 Sodium Chloride 0.9% IV 05/03/18 01:17 [id number] STA Insulin Human Lispro 0 units 04/30/18 18:00 05/02/18 06:10 Humalog High SC Not Given Q6 STEVEN Protocol Lisinopril 10 mg 04/27/18 10:00 04/29/18 10:25 Zestril PO Not Given DAILY STEVEN Metoprolol Tartrate 25 mg 04/28/18 08:32 04/29/18 10:25 Lopressor PO Not Given BID STEVEN Nicotine 1 patch 05/02/18 10:00 Nicoderm Cq TD DAILY STEVEN Pantoprazole Sodium 40 mg 04/29/18 10:00 05/02/18 09:31 Protonix Inj IVP 40 mg DAILY STEVEN Administration Thiamine HCl 200 mg 04/30/18 18:00 05/02/18 09:30 Vitamin B1 Inj IV 200 mg BID STEVEN Administration Zolpidem Tartrate 5 mg 04/28/18 20:25 04/28/18 22:12 Ambien PO 5 mg HS PRN Administration Insomnia Protocol - Patient Studies Lab Studies: Microbiology Studies 04/29/18 04:10 Blood Culture - Final Blood-Venous Bacteroides Species Gram Stain - Final 04/29/18 03:40 Blood Culture - Final Blood-Venous Bacteroides Species Gram Stain - Final 05/01/18 11:10 Blood Culture - Preliminary Blood-Venous Gram Negative Jose Gram Stain - Final 05/01/18 11:10 Blood Culture - Preliminary Blood-Venous Gram Negative Jose Gram Stain - Final 04/26/18 18:00 Blood Culture - Final Blood NO GROWTH AFTER 5 DAYS Gram Stain - Final TEST NOT PERFORMED 04/26/18 17:30 Blood Culture - Final Blood NO GROWTH AFTER 5 DAYS Gram Stain - Final TEST NOT PERFORMED Lab Studies 05/02/18 05/02/18 05/02/18 Range/Units 10:54 08:04 05:30 WBC (4.5-11.0) 10^3/uL RBC (3.5-6.1) 10^6/uL Hgb (12.0-16.0) g/dL Hct (36.0-48.0) % MCV (80.0-105.0) fl MCH (25.0-35.0) pg MCHC (31.0-37.0) g/dl RDW (11.5-14.5) % Plt Count (120.0-450.0) 10^3/uL MPV (7.0-11.0) fl Neut % (Auto) (50.0-68.0) % Lymph % (Auto) (22.0-35.0) % [place] % (Auto) (1.0-6.0) % Eos % (Auto) (1.5-5.0) % Baso % (Auto) (0.0-3.0) % Lymph # (Auto) (1.2-3.4) [place] # (Auto) (0.1-0.6) Eos # (Auto) (0.0-0.7) Baso # (Auto) (0.0-2.0) K/mm3 Absolute Neuts (auto) (1.4-6.5) pCO2 (35-45) mm/Hg pO2 (80-100) mm/Hg HCO3 (21-28) mmol/L ABG pH (7.35-7.45) ABG Total CO2 (22-28) mmol.L ABG O2 Saturation (95-98) % ABG O2 Content (15-23) ML/dl ABG Base Excess (-2.0-3.0) mmol/L ABG Hemoglobin (11.7-17.4) g/dL ABG Carboxyhemoglobin (0.5-1.5) % POC ABG HHb (Measured) (0-5) % ABG Methemoglobin (0.0-3.0) % ABG O2 Capacity (16-24) mL/dl Hgb O2 Saturation (95.0-98.0) % FiO2 % Sodium 144 (132-148) mmol/L Potassium 3.4 L (3.6-5.0) mmol/L Chloride 110 H (98-107) mmol/L Carbon Dioxide 28 (21-33) mmol/L Anion Gap 9 L (10-20) BUN 70 H (7-21) mg/dL Creatinine 2.2 H (0.7-1.2) mg/dl Est GFR ( Amer) 25 Est GFR (Non-Af Amer) 21 POC Glucose (mg/dL) 271 H 251 H (65-110) mg/dL Random Glucose 128 H (70-110) mg/dL Calcium 6.6 L* (8.4-10.5) mg/dL Total Bilirubin 0.1 L (0.2-1.3) mg/dL AST 81 H D (14-36) U/L ALT 76 H (7-56) U/L Alkaline Phosphatase 86 (38-126) U/L Total Protein 4.9 L (5.8-8.3) g/dL Albumin 2.2 L (3.0-4.8) g/dL Globulin 2.6 gm/dL Albumin/Globulin Ratio 0.9 L (1.1-1.8) 05/02/18 05/02/18 05/02/18 Range/Units 05:30 05:19 05:00 WBC 22.5 H D (4.5-11.0) 10^3/uL RBC 2.55 L (3.5-6.1) 10^6/uL Hgb 7.7 L (12.0-16.0) g/dL Hct 23.5 L (36.0-48.0) % MCV 92.2 (80.0-105.0) fl MCH 30.2 (25.0-35.0) pg MCHC 32.8 (31.0-37.0) g/dl RDW 14.7 H (11.5-14.5) % Plt Count 221 (120.0-450.0) 10^3/uL MPV 10.3 (7.0-11.0) fl Neut % (Auto) 81.0 H (50.0-68.0) % Lymph % (Auto) 17.0 L (22.0-35.0) % [place] % (Auto) 2.0 (1.0-6.0) % Eos % (Auto) 0.0 L (1.5-5.0) % Baso % (Auto) 0.0 (0.0-3.0) % Lymph # (Auto) 3.8 H (1.2-3.4) [place] # (Auto) 0.4 (0.1-0.6) Eos # (Auto) 0.0 (0.0-0.7) Baso # (Auto) 0.01 (0.0-2.0) K/mm3 Absolute Neuts (auto) 18.24 H (1.4-6.5) pCO2 44 (35-45) mm/Hg pO2 87.0 (80-100) mm/Hg HCO3 25.4 (21-28) mmol/L ABG pH 7.37 (7.35-7.45) ABG Total CO2 26.8 (22-28) mmol.L ABG O2 Saturation 98.3 H (95-98) % ABG O2 Content 10.6 L (15-23) ML/dl ABG Base Excess 0.0 (-2.0-3.0) mmol/L ABG Hemoglobin 7.8 L (11.7-17.4) g/dL ABG Carboxyhemoglobin 1.8 H (0.5-1.5) % POC ABG HHb (Measured) 1.7 (0-5) % ABG Methemoglobin 0.9 (0.0-3.0) % ABG O2 Capacity 10.8 L (16-24) mL/dl Hgb O2 Saturation 95.6 (95.0-98.0) % FiO2 28.0 % Sodium (132-148) mmol/L Potassium (3.6-5.0) mmol/L Chloride (98-107) mmol/L Carbon Dioxide (21-33) mmol/L Anion Gap (10-20) BUN (7-21) mg/dL Creatinine (0.7-1.2) mg/dl Est GFR ( Amer) Est GFR (Non-Af Amer) POC Glucose (mg/dL) 244 H (65-110) mg/dL Random Glucose (70-110) mg/dL Calcium (8.4-10.5) mg/dL Total Bilirubin (0.2-1.3) mg/dL AST (14-36) U/L ALT (7-56) U/L Alkaline Phosphatase (38-126) U/L Total Protein (5.8-8.3) g/dL Albumin (3.0-4.8) g/dL Globulin gm/dL Albumin/Globulin Ratio (1.1-1.8) 05/01/18 05/01/18 05/01/18 Range/Units 23:43 21:30 18:03 WBC (4.5-11.0) 10^3/uL RBC (3.5-6.1) 10^6/uL Hgb (12.0-16.0) g/dL Hct (36.0-48.0) % MCV (80.0-105.0) fl MCH (25.0-35.0) pg MCHC (31.0-37.0) g/dl RDW (11.5-14.5) % Plt Count (120.0-450.0) 10^3/uL MPV (7.0-11.0) fl Neut % (Auto) (50.0-68.0) % Lymph % (Auto) (22.0-35.0) % [place] % (Auto) (1.0-6.0) % Eos % (Auto) (1.5-5.0) % Baso % (Auto) (0.0-3.0) % Lymph # (Auto) (1.2-3.4) [place] # (Auto) (0.1-0.6) Eos # (Auto) (0.0-0.7) Baso # (Auto) (0.0-2.0) K/mm3 Absolute Neuts (auto) (1.4-6.5) pCO2 (35-45) mm/Hg pO2 (80-100) mm/Hg HCO3 (21-28) mmol/L ABG pH (7.35-7.45) ABG Total CO2 (22-28) mmol.L ABG O2 Saturation (95-98) % ABG O2 Content (15-23) ML/dl ABG Base Excess (-2.0-3.0) mmol/L ABG Hemoglobin (11.7-17.4) g/dL ABG Carboxyhemoglobin (0.5-1.5) % POC ABG HHb (Measured) (0-5) % ABG Methemoglobin (0.0-3.0) % ABG O2 Capacity (16-24) mL/dl Hgb O2 Saturation (95.0-98.0) % FiO2 % Sodium (132-148) mmol/L Potassium (3.6-5.0) mmol/L Chloride (98-107) mmol/L Carbon Dioxide (21-33) mmol/L Anion Gap (10-20) BUN (7-21) mg/dL Creatinine (0.7-1.2) mg/dl Est GFR ( Amer) Est GFR (Non-Af Amer) POC Glucose (mg/dL) 174 H 135 H 108 (65-110) mg/dL Random Glucose (70-110) mg/dL Calcium (8.4-10.5) mg/dL Total Bilirubin (0.2-1.3) mg/dL AST (14-36) U/L ALT (7-56) U/L Alkaline Phosphatase (38-126) U/L Total Protein (5.8-8.3) g/dL Albumin (3.0-4.8) g/dL Globulin gm/dL Albumin/Globulin Ratio (1.1-1.8) 05/01/18 Range/Units 11:17 WBC (4.5-11.0) 10^3/uL RBC (3.5-6.1) 10^6/uL Hgb (12.0-16.0) g/dL Hct (36.0-48.0) % MCV (80.0-105.0) fl MCH (25.0-35.0) pg MCHC (31.0-37.0) g/dl RDW (11.5-14.5) % Plt Count (120.0-450.0) 10^3/uL MPV (7.0-11.0) fl Neut % (Auto) (50.0-68.0) % Lymph % (Auto) (22.0-35.0) % [place] % (Auto) (1.0-6.0) % Eos % (Auto) (1.5-5.0) % Baso % (Auto) (0.0-3.0) % Lymph # (Auto) (1.2-3.4) [place] # (Auto) (0.1-0.6) Eos # (Auto) (0.0-0.7) Baso # (Auto) (0.0-2.0) K/mm3 Absolute Neuts (auto) (1.4-6.5) pCO2 (35-45) mm/Hg pO2 (80-100) mm/Hg HCO3 (21-28) mmol/L ABG pH (7.35-7.45) ABG Total CO2 (22-28) mmol.L ABG O2 Saturation (95-98) % ABG O2 Content (15-23) ML/dl ABG Base Excess (-2.0-3.0) mmol/L ABG Hemoglobin (11.7-17.4) g/dL ABG Carboxyhemoglobin (0.5-1.5) % POC ABG HHb (Measured) (0-5) % ABG Methemoglobin (0.0-3.0) % ABG O2 Capacity (16-24) mL/dl Hgb O2 Saturation (95.0-98.0) % FiO2 % Sodium (132-148) mmol/L Potassium (3.6-5.0) mmol/L Chloride (98-107) mmol/L Carbon Dioxide (21-33) mmol/L Anion Gap (10-20) BUN (7-21) mg/dL Creatinine (0.7-1.2) mg/dl Est GFR ( Amer) Est GFR (Non-Af Amer) POC Glucose (mg/dL) 199 H (65-110) mg/dL Random Glucose (70-110) mg/dL Calcium (8.4-10.5) mg/dL Total Bilirubin (0.2-1.3) mg/dL AST (14-36) U/L ALT (7-56) U/L Alkaline Phosphatase (38-126) U/L Total Protein (5.8-8.3) g/dL Albumin (3.0-4.8) g/dL Globulin gm/dL Albumin/Globulin Ratio (1.1-1.8) Laboratory Results - last 24 hr 05/01/18 05/01/18 05/01/18 11:17 18:03 21:30 WBC RBC Hgb Hct MCV MCH MCHC RDW Plt Count MPV Neut % (Auto) Lymph % (Auto) [place] % (Auto) Eos % (Auto) Baso % (Auto) Lymph # (Auto) [place] # (Auto) Eos # (Auto) Baso # (Auto) Absolute Neuts (auto) pCO2 pO2 HCO3 ABG pH ABG Total CO2 ABG O2 Saturation ABG O2 Content ABG Base Excess ABG Hemoglobin ABG Carboxyhemoglobin POC ABG HHb (Measured) ABG Methemoglobin ABG O2 Capacity Hgb O2 Saturation FiO2 Sodium Potassium Chloride Carbon Dioxide Anion Gap BUN Creatinine Est GFR ( Amer) Est GFR (Non-Af Amer) POC Glucose (mg/dL) 199 H 108 135 H Random Glucose Calcium Total Bilirubin AST ALT Alkaline Phosphatase Total Protein Albumin Globulin Albumin/Globulin Ratio 05/01/18 05/02/18 05/02/18 23:43 05:00 05:19 WBC RBC Hgb Hct MCV MCH MCHC RDW Plt Count MPV Neut % (Auto) Lymph % (Auto) [place] % (Auto) Eos % (Auto) Baso % (Auto) Lymph # (Auto) [place] # (Auto) Eos # (Auto) Baso # (Auto) Absolute Neuts (auto) pCO2 44 pO2 87.0 HCO3 25.4 ABG pH 7.37 ABG Total CO2 26.8 ABG O2 Saturation 98.3 H ABG O2 Content 10.6 L ABG Base Excess 0.0 ABG Hemoglobin 7.8 L ABG Carboxyhemoglobin 1.8 H POC ABG HHb (Measured) 1.7 ABG Methemoglobin 0.9 ABG O2 Capacity 10.8 L Hgb O2 Saturation 95.6 FiO2 28.0 Sodium Potassium Chloride Carbon Dioxide Anion Gap BUN Creatinine Est GFR ( Amer) Est GFR (Non-Af Amer) POC Glucose (mg/dL) 174 H 244 H Random Glucose Calcium Total Bilirubin AST ALT Alkaline Phosphatase Total Protein Albumin Globulin Albumin/Globulin Ratio 05/02/18 05/02/18 05/02/18 05:30 05:30 08:04 WBC 22.5 H D RBC 2.55 L Hgb 7.7 L Hct 23.5 L MCV 92.2 MCH 30.2 MCHC 32.8 RDW 14.7 H Plt Count 221 MPV 10.3 Neut % (Auto) 81.0 H Lymph % (Auto) 17.0 L [place] % (Auto) 2.0 Eos % (Auto) 0.0 L Baso % (Auto) 0.0 Lymph # (Auto) 3.8 H [place] # (Auto) 0.4 Eos # (Auto) 0.0 Baso # (Auto) 0.01 Absolute Neuts (auto) 18.24 H pCO2 pO2 HCO3 ABG pH ABG Total CO2 ABG O2 Saturation ABG O2 Content ABG Base Excess ABG Hemoglobin ABG Carboxyhemoglobin POC ABG HHb (Measured) ABG Methemoglobin ABG O2 Capacity Hgb O2 Saturation FiO2 Sodium 144 Potassium 3.4 L Chloride 110 H Carbon Dioxide 28 Anion Gap 9 L BUN 70 H Creatinine 2.2 H Est GFR ( Amer) 25 Est GFR (Non-Af Amer) 21 POC Glucose (mg/dL) 251 H Random Glucose 128 H Calcium 6.6 L* Total Bilirubin 0.1 L AST 81 H D ALT 76 H Alkaline Phosphatase 86 Total Protein 4.9 L Albumin 2.2 L Globulin 2.6 Albumin/Globulin Ratio 0.9 L 05/02/18 10:54 WBC RBC Hgb Hct MCV MCH MCHC RDW Plt Count MPV Neut % (Auto) Lymph % (Auto) [place] % (Auto) Eos % (Auto) Baso % (Auto) Lymph # (Auto) [place] # (Auto) Eos # (Auto) Baso # (Auto) Absolute Neuts (auto) pCO2 pO2 HCO3 ABG pH ABG Total CO2 ABG O2 Saturation ABG O2 Content ABG Base Excess ABG Hemoglobin ABG Carboxyhemoglobin POC ABG HHb (Measured) ABG Methemoglobin ABG O2 Capacity Hgb O2 Saturation FiO2 Sodium Potassium Chloride Carbon Dioxide Anion Gap BUN Creatinine Est GFR ( Amer) Est GFR (Non-Af Amer) POC Glucose (mg/dL) 271 H Random Glucose Calcium Total Bilirubin AST ALT Alkaline Phosphatase Total Protein Albumin Globulin Albumin/Globulin Ratio Radiology Impressions: Radiology Impressions Chest X-Ray 05/02/18 06:00 IMPRESSION: Mild pulmonary venous congestive changes possibly chronic compensated CHF. Bibasilar atelectasis left greater than right. Suspect small bilateral effusions left larger than right. Fingerstick Blood Sugar Results: 271 Review of Systems - Review of Systems Systems not reviewed;Unavailable: Altered Mental Status Critical Care Progress Note - Ventilator Checklist Head of Bed 30 Degrees: Yes PUD Prophalyxis: Yes DVT Prophylaxis: Yes - Nutrition Nutrition: Nutrition Category Date Time Status Pureed [Dysphagia/Modified Consistency Diet] [DIET] Diets 05/02/18 Lunch Ordered Assessment/Plan - Assessment and Plan (Free Text) Assessment: 88 year old female with past medical history of right ICA stenosis status post carotid endarterectomy, hypertension, hyperlipidemia, diabetes mellitus type II, Parkinson's disease was diagnosed with multisystem organ failure 2/2 to hypoperfusion from cardiogenic shock vs. distributive shock. Patient is currently off all vasopressor therapy, extubated and with improving multisystem function. Plan: Neuro: -Extubated today and responding to commands -Head CT from 04/30 showed no acute intracranial hemorrhage Parkinson's disease -Continue with levodopa/carbidopa Cardio: NSTEMI -RRR -Continue with aspirin, plavix. Lopressor held due to hypotension. -Maintain MAP>65. -Monitor for S/S, HD compromise. Hypotension-resolved -Continue to monitor blood pressure. Pulm: Hypoxic, Hypercarbic respiratory failure -Patient extubated today -ABG 05/02: pH: 7.37, pO2: 87, pCO2: 44 on NC. -Chest CT 04/30: no acute findings -Maintain O2 saturation>90%. -Head of bed to 30 degrees -Conservative fluid management -Maintain oral hygiene COPD -Continue Duonebs Q6, solucortef 25 mg Q12 -Started brovana 15 mcg Q12 and pulmicort 0.5 mg Q12 Nicotine Dependence -Nicotine patch continued GI: Acute Liver Injury -Improved LFTs today -Abdominal CT 05/01: large collection of fluid and gas in uterus measuring 9.7 cm. Concern for cervical/endometrial stenosis for neoplasm. Cholelithiasis without cholecystitis. Diet -Tolerating pureed diet well GI prophylaxis -Protonix 40 mg IV daily /Nephro: Acute tubular necrosis -MODS with ischemic injury to kidney leading to ATN. Mild improvement today. -BUN/Cr improved at 70/2.2. Creatinine was 2.3 yesterday. Baseline is 1.0 -Avoid nephrotoxins such as lisinopril and losartan. -UCx shows pansensitive E. Coli covered with cefepime. - NS at 75 cc/hr -Good urine output. Masters intact -Continue monitoring. -Replete electrolytes as needed. -Maintain euvolemia. Endocrinology: Diabetes Mellitus type II -Random glucose: 121 -High sliding scale insulin -Maintain euglycemia. Heme/Onc: -Abdominal CT: large collection of fluid and gas in uterus measuring 9.7 cm. Concern for cervical/endometrial stenosis for neoplasm. Normocytic Anemia -H/H stable at 7.7/23.5 from Hgb of 8.6 yesterday. -No signs of HD compromise. -Continue monitoring H/H DVT prophylaxis -Heparin 5000 U Q8 ID: Sepsis 2/ to UTI vs. Gastrointestinal Pathology -Afebrile, leukocytosis improved to 22.5 from 34.9 -Abdominal CT: large collection of fluid and gas in uterus measuring 9.7 cm. Concern for cervical/endometrial stenosis for neoplasm. -Blood culture: positive for gram negative jose -UCx: pansensitive E. Coli -Procalcitonin: 27.27 from 0.69 -Lactate: trending down to 1.4 -Continue with aztreonam day 4 and one more dose of vancomycin renally dosed. -Monitor for signs and symptoms of infection. 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 Concern for cervical/endometrial stenosis for neoplasm. -Follow up Abdominal and Pelvis MRI for further evaluation Disposition: Patient is hemodynamically stable and ready for transfer to telemetry floor Patient seen and examined with Dr. Ngo. - Date & Time Date: 05/02/18 Time: 14:34 <Irwin Ngo - Last Filed: 05/02/18 15:37> CCU Objective - Vital Signs / Intake & Output Vital Signs (Last 4 hours): Vital Signs Pulse 05/02/18 14:00 106 H Intake and Output (Last 8hrs): Intake & Output 05/02/18 05/02/18 05/02/18 06:59 14:59 22:59 Intake Total 900 Output Total 275 Balance 625 Intake: IV 900 maintenance 900 Output: Urine 275 Urethral (Masters) 275 - Medications Active Medications: Active Medications Generic Name Dose Route Start Last Admin Trade Name Freq PRN Reason Stop Dose Admin Acetaminophen 650 mg 04/28/18 00:59 04/28/18 01:29 Tylenol 325mg Tab PO 650 mg Q6H PRN Administration Fever >100.4 F Albuterol/Ipratropium 3 ml 05/02/18 07:13 05/02/18 13:51 Duoneb 3 Mg/0.5 Mg (3 Ml) Ud IH 3 ml [id number] PRN Administration Shortness of Breath Arformoterol Tartrate 15 mcg 05/01/18 20:00 05/02/18 07:38 Brovana IH 15 mcg [id number] STEVEN Administration Aspirin 81 mg 04/27/18 10:00 05/01/18 09:43 Aspirin Chewable PO 81 mg DAILY STEVEN Administration Atorvastatin Calcium 40 mg 05/02/18 17:00 Lipitor PO DIN STEVEN Budesonide 0.5 mg 05/01/18 20:00 05/02/18 07:39 Pulmicort Respules IH 0.5 mg [id number] STEVEN Administration Carbidopa/Levodopa/Entacapone 1 tab 04/27/18 10:00 05/02/18 14:26 Stalevo 150 PO Not Given TID [facility] Clopidogrel Bisulfate 75 mg 04/29/18 10:00 05/01/18 09:43 Plavix PO 75 mg DAILY STEVEN Administration Dextrose 0 ml 04/29/18 12:32 Dextrose 50% Inj IV STAT PRN Hypoglycemia Protocol Protocol Docusate Sodium 100 mg 04/27/18 10:00 04/29/18 10:33 Colace PO 100 mg BID STEVEN Administration Glyburide 5 mg 04/28/18 17:00 04/29/18 08:22 Micronase PO 5 mg 0800,1700 STEVEN Administration Heparin Sodium (Porcine) 5,000 units 05/01/18 22:00 05/02/18 05:11 Heparin SC 5,000 units Q8 STEVEN Administration Protocol Hydrocortisone Sodium Succinate 25 mg 05/01/18 10:45 05/02/18 11:53 Solu-Cortef IVP 25 mg Q12H STEVEN Administration Aztreonam 100 mls @ 100 mls/hr 04/29/18 09:45 05/02/18 05:10 Azactam 1 Gm IVPB 05/06/18 09:46 100 mls/hr Q8 STEVEN Administration Protocol Dextrose 1,000 mls @ 0 mls/hr 04/29/18 12:32 Dextrose 5% In Water 1000 Ml IV .Q0M PRN Hypoglycemia Protocol Protocol Per Protocol Amiodarone HCl/Dextrose 360 mg in 200 mls @ 16.667 mls/hr 04/30/18 15:30 05/01/18 04:21 Nexterone 360 Mg In D5w 200 Ml (Premix) IV 16.667 mls/hr .Q12H STEVEN Administration Protocol 0.5 MG/MIN Ascorbic Acid 1,500 mg/ Sodium 53 mls @ 53 mls/hr 04/30/18 17:00 05/02/18 09:59 Chloride IVPB 53 mls/hr Q6H STEVEN Administration Metronidazole 500 mg in 100 mls @ 100 mls/hr 05/02/18 14:00 Flagyl IVPB Q8 STEVEN Protocol Sodium Chloride 1,000 mls @ 75 mls/hr 05/02/18 11:58 Sodium Chloride 0.9% IV 05/03/18 01:17 .[id number] STA Insulin Human Lispro 0 units 04/30/18 18:00 05/02/18 06:10 Humalog High SC Not Given Q6 STEVEN Protocol Lisinopril 10 mg 04/27/18 10:00 04/29/18 10:25 Zestril PO Not Given DAILY STEVEN Metoprolol Tartrate 25 mg 04/28/18 08:32 04/29/18 10:25 Lopressor PO Not Given BID STEVEN Nicotine 1 patch 05/02/18 10:00 Nicoderm Cq TD DAILY STEVEN Pantoprazole Sodium 40 mg 04/29/18 10:00 05/02/18 09:31 Protonix Inj IVP 40 mg DAILY STEVEN Administration Thiamine HCl 200 mg 04/30/18 18:00 05/02/18 09:30 Vitamin B1 Inj IV 200 mg BID STEVEN Administration Zolpidem Tartrate 5 mg 04/28/18 20:25 04/28/18 22:12 Ambien PO 5 mg HS PRN Administration Insomnia Protocol - Patient Studies Lab Studies: Microbiology Studies 04/29/18 04:10 Blood Culture - Final Blood-Venous Bacteroides Species Gram Stain - Final 04/29/18 03:40 Blood Culture - Final Blood-Venous Bacteroides Species Gram Stain - Final 05/01/18 11:10 Blood Culture - Preliminary Blood-Venous Gram Negative Jose Gram Stain - Final 05/01/18 11:10 Blood Culture - Preliminary Blood-Venous Gram Negative Jose Gram Stain - Final 04/26/18 18:00 Blood Culture - Final Blood NO GROWTH AFTER 5 DAYS Gram Stain - Final TEST NOT PERFORMED 04/26/18 17:30 Blood Culture - Final Blood NO GROWTH AFTER 5 DAYS Gram Stain - Final TEST NOT PERFORMED Lab Studies 05/02/18 05/02/18 05/02/18 Range/Units 10:54 08:04 05:30 WBC (4.5-11.0) 10^3/uL RBC (3.5-6.1) 10^6/uL Hgb (12.0-16.0) g/dL Hct (36.0-48.0) % MCV (80.0-105.0) fl MCH (25.0-35.0) pg MCHC (31.0-37.0) g/dl RDW (11.5-14.5) % Plt Count (120.0-450.0) 10^3/uL MPV (7.0-11.0) fl Neut % (Auto) (50.0-68.0) % Lymph % (Auto) (22.0-35.0) % [place] % (Auto) (1.0-6.0) % Eos % (Auto) (1.5-5.0) % Baso % (Auto) (0.0-3.0) % Lymph # (Auto) (1.2-3.4) [place] # (Auto) (0.1-0.6) Eos # (Auto) (0.0-0.7) Baso # (Auto) (0.0-2.0) K/mm3 Absolute Neuts (auto) (1.4-6.5) pCO2 (35-45) mm/Hg pO2 (80-100) mm/Hg HCO3 (21-28) mmol/L ABG pH (7.35-7.45) ABG Total CO2 (22-28) mmol.L ABG O2 Saturation (95-98) % ABG O2 Content (15-23) ML/dl ABG Base Excess (-2.0-3.0) mmol/L ABG Hemoglobin (11.7-17.4) g/dL ABG Carboxyhemoglobin (0.5-1.5) % POC ABG HHb (Measured) (0-5) % ABG Methemoglobin (0.0-3.0) % ABG O2 Capacity (16-24) mL/dl Hgb O2 Saturation (95.0-98.0) % FiO2 % Sodium 144 (132-148) mmol/L Potassium 3.4 L (3.6-5.0) mmol/L Chloride 110 H (98-107) mmol/L Carbon Dioxide 28 (21-33) mmol/L Anion Gap 9 L (10-20) BUN 70 H (7-21) mg/dL Creatinine 2.2 H (0.7-1.2) mg/dl Est GFR ( Amer) 25 Est GFR (Non-Af Amer) 21 POC Glucose (mg/dL) 271 H 251 H (65-110) mg/dL Random Glucose 128 H (70-110) mg/dL Calcium 6.6 L* (8.4-10.5) mg/dL Total Bilirubin 0.1 L (0.2-1.3) mg/dL AST 81 H D (14-36) U/L ALT 76 H (7-56) U/L Alkaline Phosphatase 86 (38-126) U/L Total Protein 4.9 L (5.8-8.3) g/dL Albumin 2.2 L (3.0-4.8) g/dL Globulin 2.6 gm/dL Albumin/Globulin Ratio 0.9 L (1.1-1.8) 05/02/18 05/02/18 05/02/18 Range/Units 05:30 05:19 05:00 WBC 22.5 H D (4.5-11.0) 10^3/uL RBC 2.55 L (3.5-6.1) 10^6/uL Hgb 7.7 L (12.0-16.0) g/dL Hct 23.5 L (36.0-48.0) % MCV 92.2 (80.0-105.0) fl MCH 30.2 (25.0-35.0) pg MCHC 32.8 (31.0-37.0) g/dl RDW 14.7 H (11.5-14.5) % Plt Count 221 (120.0-450.0) 10^3/uL MPV 10.3 (7.0-11.0) fl Neut % (Auto) 81.0 H (50.0-68.0) % Lymph % (Auto) 17.0 L (22.0-35.0) % [place] % (Auto) 2.0 (1.0-6.0) % Eos % (Auto) 0.0 L (1.5-5.0) % Baso % (Auto) 0.0 (0.0-3.0) % Lymph # (Auto) 3.8 H (1.2-3.4) [place] # (Auto) 0.4 (0.1-0.6) Eos # (Auto) 0.0 (0.0-0.7) Baso # (Auto) 0.01 (0.0-2.0) K/mm3 Absolute Neuts (auto) 18.24 H (1.4-6.5) pCO2 44 (35-45) mm/Hg pO2 87.0 (80-100) mm/Hg HCO3 25.4 (21-28) mmol/L ABG pH 7.37 (7.35-7.45) ABG Total CO2 26.8 (22-28) mmol.L ABG O2 Saturation 98.3 H (95-98) % ABG O2 Content 10.6 L (15-23) ML/dl ABG Base Excess 0.0 (-2.0-3.0) mmol/L ABG Hemoglobin 7.8 L (11.7-17.4) g/dL ABG Carboxyhemoglobin 1.8 H (0.5-1.5) % POC ABG HHb (Measured) 1.7 (0-5) % ABG Methemoglobin 0.9 (0.0-3.0) % ABG O2 Capacity 10.8 L (16-24) mL/dl Hgb O2 Saturation 95.6 (95.0-98.0) % FiO2 28.0 % Sodium (132-148) mmol/L Potassium (3.6-5.0) mmol/L Chloride (98-107) mmol/L Carbon Dioxide (21-33) mmol/L Anion Gap (10-20) BUN (7-21) mg/dL Creatinine (0.7-1.2) mg/dl Est GFR ( Amer) Est GFR (Non-Af Amer) POC Glucose (mg/dL) 244 H (65-110) mg/dL Random Glucose (70-110) mg/dL Calcium (8.4-10.5) mg/dL Total Bilirubin (0.2-1.3) mg/dL AST (14-36) U/L ALT (7-56) U/L Alkaline Phosphatase (38-126) U/L Total Protein (5.8-8.3) g/dL Albumin (3.0-4.8) g/dL Globulin gm/dL Albumin/Globulin Ratio (1.1-1.8) 05/01/18 05/01/18 05/01/18 Range/Units 23:43 21:30 18:03 WBC (4.5-11.0) 10^3/uL RBC (3.5-6.1) 10^6/uL Hgb (12.0-16.0) g/dL Hct (36.0-48.0) % MCV (80.0-105.0) fl MCH (25.0-35.0) pg MCHC (31.0-37.0) g/dl RDW (11.5-14.5) % Plt Count (120.0-450.0) 10^3/uL MPV (7.0-11.0) fl Neut % (Auto) (50.0-68.0) % Lymph % (Auto) (22.0-35.0) % [place] % (Auto) (1.0-6.0) % Eos % (Auto) (1.5-5.0) % Baso % (Auto) (0.0-3.0) % Lymph # (Auto) (1.2-3.4) [place] # (Auto) (0.1-0.6) Eos # (Auto) (0.0-0.7) Baso # (Auto) (0.0-2.0) K/mm3 Absolute Neuts (auto) (1.4-6.5) pCO2 (35-45) mm/Hg pO2 (80-100) mm/Hg HCO3 (21-28) mmol/L ABG pH (7.35-7.45) ABG Total CO2 (22-28) mmol.L ABG O2 Saturation (95-98) % ABG O2 Content (15-23) ML/dl ABG Base Excess (-2.0-3.0) mmol/L ABG Hemoglobin (11.7-17.4) g/dL ABG Carboxyhemoglobin (0.5-1.5) % POC ABG HHb (Measured) (0-5) % ABG Methemoglobin (0.0-3.0) % ABG O2 Capacity (16-24) mL/dl Hgb O2 Saturation (95.0-98.0) % FiO2 % Sodium (132-148) mmol/L Potassium (3.6-5.0) mmol/L Chloride (98-107) mmol/L Carbon Dioxide (21-33) mmol/L Anion Gap (10-20) BUN (7-21) mg/dL Creatinine (0.7-1.2) mg/dl Est GFR ( Amer) Est GFR (Non-Af Amer) POC Glucose (mg/dL) 174 H 135 H 108 (65-110) mg/dL Random Glucose (70-110) mg/dL Calcium (8.4-10.5) mg/dL Total Bilirubin (0.2-1.3) mg/dL AST (14-36) U/L ALT (7-56) U/L Alkaline Phosphatase (38-126) U/L Total Protein (5.8-8.3) g/dL Albumin (3.0-4.8) g/dL Globulin gm/dL Albumin/Globulin Ratio (1.1-1.8) 05/01/18 Range/Units 11:17 WBC (4.5-11.0) 10^3/uL RBC (3.5-6.1) 10^6/uL Hgb (12.0-16.0) g/dL Hct (36.0-48.0) % MCV (80.0-105.0) fl MCH (25.0-35.0) pg MCHC (31.0-37.0) g/dl RDW (11.5-14.5) % Plt Count (120.0-450.0) 10^3/uL MPV (7.0-11.0) fl Neut % (Auto) (50.0-68.0) % Lymph % (Auto) (22.0-35.0) % [place] % (Auto) (1.0-6.0) % Eos % (Auto) (1.5-5.0) % Baso % (Auto) (0.0-3.0) % Lymph # (Auto) (1.2-3.4) [place] # (Auto) (0.1-0.6) Eos # (Auto) (0.0-0.7) Baso # (Auto) (0.0-2.0) K/mm3 Absolute Neuts (auto) (1.4-6.5) pCO2 (35-45) mm/Hg pO2 (80-100) mm/Hg HCO3 (21-28) mmol/L ABG pH (7.35-7.45) ABG Total CO2 (22-28) mmol.L ABG O2 Saturation (95-98) % ABG O2 Content (15-23) ML/dl ABG Base Excess (-2.0-3.0) mmol/L ABG Hemoglobin (11.7-17.4) g/dL ABG Carboxyhemoglobin (0.5-1.5) % POC ABG HHb (Measured) (0-5) % ABG Methemoglobin (0.0-3.0) % ABG O2 Capacity (16-24) mL/dl Hgb O2 Saturation (95.0-98.0) % FiO2 % Sodium (132-148) mmol/L Potassium (3.6-5.0) mmol/L Chloride (98-107) mmol/L Carbon Dioxide (21-33) mmol/L Anion Gap (10-20) BUN (7-21) mg/dL Creatinine (0.7-1.2) mg/dl Est GFR ( Amer) Est GFR (Non-Af Amer) POC Glucose (mg/dL) 199 H (65-110) mg/dL Random Glucose (70-110) mg/dL Calcium (8.4-10.5) mg/dL Total Bilirubin (0.2-1.3) mg/dL AST (14-36) U/L ALT (7-56) U/L Alkaline Phosphatase (38-126) U/L Total Protein (5.8-8.3) g/dL Albumin (3.0-4.8) g/dL Globulin gm/dL Albumin/Globulin Ratio (1.1-1.8) Laboratory Results - last 24 hr 05/01/18 05/01/18 05/01/18 11:17 18:03 21:30 WBC RBC Hgb Hct MCV MCH MCHC RDW Plt Count MPV Neut % (Auto) Lymph % (Auto) [place] % (Auto) Eos % (Auto) Baso % (Auto) Lymph # (Auto) [place] # (Auto) Eos # (Auto) Baso # (Auto) Absolute Neuts (auto) pCO2 pO2 HCO3 ABG pH ABG Total CO2 ABG O2 Saturation ABG O2 Content ABG Base Excess ABG Hemoglobin ABG Carboxyhemoglobin POC ABG HHb (Measured) ABG Methemoglobin ABG O2 Capacity Hgb O2 Saturation FiO2 Sodium Potassium Chloride Carbon Dioxide Anion Gap BUN Creatinine Est GFR ( Amer) Est GFR (Non-Af Amer) POC Glucose (mg/dL) 199 H 108 135 H Random Glucose Calcium Total Bilirubin AST ALT Alkaline Phosphatase Total Protein Albumin Globulin Albumin/Globulin Ratio 05/01/18 05/02/18 05/02/18 23:43 05:00 05:19 WBC RBC Hgb Hct MCV MCH MCHC RDW Plt Count MPV Neut % (Auto) Lymph % (Auto) [place] % (Auto) Eos % (Auto) Baso % (Auto) Lymph # (Auto) [place] # (Auto) Eos # (Auto) Baso # (Auto) Absolute Neuts (auto) pCO2 44 pO2 87.0 HCO3 25.4 ABG pH 7.37 ABG Total CO2 26.8 ABG O2 Saturation 98.3 H ABG O2 Content 10.6 L ABG Base Excess 0.0 ABG Hemoglobin 7.8 L ABG Carboxyhemoglobin 1.8 H POC ABG HHb (Measured) 1.7 ABG Methemoglobin 0.9 ABG O2 Capacity 10.8 L Hgb O2 Saturation 95.6 FiO2 28.0 Sodium Potassium Chloride Carbon Dioxide Anion Gap BUN Creatinine Est GFR ( Amer) Est GFR (Non-Af Amer) POC Glucose (mg/dL) 174 H 244 H Random Glucose Calcium Total Bilirubin AST ALT Alkaline Phosphatase Total Protein Albumin Globulin Albumin/Globulin Ratio 05/02/18 05/02/18 05/02/18 05:30 05:30 08:04 WBC 22.5 H D RBC 2.55 L Hgb 7.7 L Hct 23.5 L MCV 92.2 MCH 30.2 MCHC 32.8 RDW 14.7 H Plt Count 221 MPV 10.3 Neut % (Auto) 81.0 H Lymph % (Auto) 17.0 L [place] % (Auto) 2.0 Eos % (Auto) 0.0 L Baso % (Auto) 0.0 Lymph # (Auto) 3.8 H [place] # (Auto) 0.4 Eos # (Auto) 0.0 Baso # (Auto) 0.01 Absolute Neuts (auto) 18.24 H pCO2 pO2 HCO3 ABG pH ABG Total CO2 ABG O2 Saturation ABG O2 Content ABG Base Excess ABG Hemoglobin ABG Carboxyhemoglobin POC ABG HHb (Measured) ABG Methemoglobin ABG O2 Capacity Hgb O2 Saturation FiO2 Sodium 144 Potassium 3.4 L Chloride 110 H Carbon Dioxide 28 Anion Gap 9 L BUN 70 H Creatinine 2.2 H Est GFR ( Amer) 25 Est GFR (Non-Af Amer) 21 POC Glucose (mg/dL) 251 H Random Glucose 128 H Calcium 6.6 L* Total Bilirubin 0.1 L AST 81 H D ALT 76 H Alkaline Phosphatase 86 Total Protein 4.9 L Albumin 2.2 L Globulin 2.6 Albumin/Globulin Ratio 0.9 L 05/02/18 10:54 WBC RBC Hgb Hct MCV MCH MCHC RDW Plt Count MPV Neut % (Auto) Lymph % (Auto) [place] % (Auto) Eos % (Auto) Baso % (Auto) Lymph # (Auto) [place] # (Auto) Eos # (Auto) Baso # (Auto) Absolute Neuts (auto) pCO2 pO2 HCO3 ABG pH ABG Total CO2 ABG O2 Saturation ABG O2 Content ABG Base Excess ABG Hemoglobin ABG Carboxyhemoglobin POC ABG HHb (Measured) ABG Methemoglobin ABG O2 Capacity Hgb O2 Saturation FiO2 Sodium Potassium Chloride Carbon Dioxide Anion Gap BUN Creatinine Est GFR ( Amer) Est GFR (Non-Af Amer) POC Glucose (mg/dL) 271 H Random Glucose Calcium Total Bilirubin AST ALT Alkaline Phosphatase Total Protein Albumin Globulin Albumin/Globulin Ratio Radiology Impressions: Radiology Impressions Chest X-Ray 05/02/18 06:00 IMPRESSION: Mild pulmonary venous congestive changes possibly chronic compensated CHF. Bibasilar atelectasis left greater than right. Suspect small bilateral effusions left larger than right. Critical Care Progress Note - Nutrition Nutrition: Nutrition Category Date Time Status Pureed [Dysphagia/Modified Consistency Diet] [DIET] Diets 05/02/18 Lunch Ordered Assessment/Plan - Assessment and Plan (Free Text) Plan: Patient seen and examined on rounds, with resident, with following additions/exceptions: Patient is 88yo female with PMhx of right ICA stenosis status post carotid endarterectomy, HTN, HLD, diabetes mellitus type II, Parkinson's disease admitted with shock, likely component of septic shock, distributive shock. Patient is currently afebrile, HD stable, OFF ALL Vasopressor support, in NAD. Yesterday patient was taken off sedation, placed on CPAP trial for 90 minutes, successfully extubated to 4LNC, doing well, AAOx3 Patient did well overnight Currently no major complaints Passed speech swallow, started on diet TLC, Art line discontinued SonMarek, at the bedside, updated of clinical findings Septic Shock, resolved Gram neg bacteremia Rule out cervical, gynocological neoplams NSTEMI Hx Smoking COPD Recommend: - supp o2 as needed, duonebs PRN, Pulmicort 0.25mg BID, IS, OOB to chair - repeat BCx, adjust abx accordingly, follow up ID, abx as per ID - ECHO - ASA, Plavix, Statin - monitor I/Os, Cr - Taper Solucortef 25mg q daily - DC IVF - follow up renal - GI ppx - DVT ppx, HSQ - Stable, transfer to tele
[2018-05-02] MEDS: Carbidopa/Levodopa/Entacapone 37.5mg-150mg-200mg PO SCH ×2 (14:26→17:04)
--- NOTE | 2018-05-02 14:32 | CP.PCM.PN ---
Subjective - Date & Time of Evaluation Date of Evaluation: 05/02/18 Time of Evaluation: 12:50 - Subjective Subjective: Patient remains extubated, starting to take liquids, no diarrhea, no abdominal pain currently, still weak-looking. Objective - Vital Signs/Intake and Output Vital Signs (last 24 hours): Temp Pulse Resp BP Pulse Ox 96.8 F L 106 H 20 114/47 L 100 05/02/18 06:01 05/02/18 14:00 05/02/18 07:43 05/02/18 06:01 05/02/18 07:43 Intake and Output: 05/02/18 05/02/18 06:59 18:59 Intake Total 900 Output Total 275 Balance 625 - Medications Medications: Current Medications Acetaminophen (Tylenol 325mg Tab) 650 mg PO Q6H PRN PRN Reason: Fever >100.4 F Last Admin: 04/28/18 01:29 Dose: 650 mg Albuterol/Ipratropium (Duoneb 3 Mg/0.5 Mg (3 Ml) Ud) 3 ml IH [id number] PRN PRN Reason: Shortness of Breath Last Admin: 05/02/18 13:51 Dose: 3 ml Arformoterol Tartrate (Brovana) 15 mcg IH [id number] [facility] Last Admin: 05/02/18 07:38 Dose: 15 mcg Aspirin (Aspirin Chewable) 81 mg PO DAILY [facility] Last Admin: 05/01/18 09:43 Dose: 81 mg Atorvastatin Calcium (Lipitor) 40 mg PO DIN [facility] Budesonide (Pulmicort Respules) 0.5 mg IH [id number] [facility] Last Admin: 05/02/18 07:39 Dose: 0.5 mg Carbidopa/Levodopa/Entacapone (Stalevo 150) 1 tab PO TID [facility] Last Admin: 05/02/18 14:26 Dose: Not Given Clopidogrel Bisulfate (Plavix) 75 mg PO DAILY [facility] Last Admin: 05/01/18 09:43 Dose: 75 mg Dextrose (Dextrose 50% Inj) 0 ml IV STAT PRN; Protocol PRN Reason: Hypoglycemia Protocol Docusate Sodium (Colace) 100 mg PO BID [facility] Last Admin: 04/29/18 10:33 Dose: 100 mg Glyburide (Micronase) 5 mg PO 0800,1700 [facility] Last Admin: 04/29/18 08:22 Dose: 5 mg Heparin Sodium (Porcine) (Heparin) 5,000 units SC Q8 [facility]; Protocol Last Admin: 05/02/18 05:11 Dose: 5,000 units Hydrocortisone Sodium Succinate (Solu-Cortef) 25 mg IVP Q12H [facility] Last Admin: 05/02/18 11:53 Dose: 25 mg Aztreonam (Azactam 1 Gm) 100 mls @ 100 mls/hr IVPB Q8 [facility]; Protocol Stop: 05/06/18 09:46 Last Admin: 05/02/18 05:10 Dose: 100 mls/hr Dextrose (Dextrose 5% In Water 1000 Ml) 1,000 mls @ 0 mls/hr IV .Q0M PRN; Protocol PRN Reason: Hypoglycemia Protocol Amiodarone HCl/Dextrose (Nexterone 360 Mg In D5w 200 Ml (Premix)) 360 mg in 200 mls @ 16.667 mls/hr IV .Q12H [facility]; Protocol Last Admin: 05/01/18 04:21 Dose: 16.667 mls/hr Ascorbic Acid 1,500 mg/ Sodium (Chloride) 53 mls @ 53 mls/hr IVPB Q6H [facility] Last Admin: 05/02/18 09:59 Dose: 53 mls/hr Metronidazole (Flagyl) 500 mg in 100 mls @ 100 mls/hr IVPB Q8 [facility]; Protocol Sodium Chloride (Sodium Chloride 0.9%) 1,000 mls @ 75 mls/hr IV .[id number] [facility] Stop: 05/03/18 01:17 Insulin Human Lispro (Humalog High) 0 units SC Q6 [facility]; Protocol Last Admin: 05/02/18 06:10 Dose: Not Given Lisinopril (Zestril) 10 mg PO DAILY [facility] Last Admin: 04/29/18 10:25 Dose: Not Given Metoprolol Tartrate (Lopressor) 25 mg PO BID [facility] Last Admin: 04/29/18 10:25 Dose: Not Given Nicotine (Nicoderm Cq) 1 patch TD DAILY [facility] Pantoprazole Sodium (Protonix Inj) 40 mg IVP DAILY [facility] Last Admin: 05/02/18 09:31 Dose: 40 mg Thiamine HCl (Vitamin B1 Inj) 200 mg IV BID [facility] Last Admin: 05/02/18 09:30 Dose: 200 mg Zolpidem Tartrate (Ambien) 5 mg PO HS PRN; Protocol PRN Reason: Insomnia Last Admin: 04/28/18 22:12 Dose: 5 mg - Labs Labs: 05/02/18 05:30 05/02/18 05:30 PT 18.7 SECONDS (9.4-12.5) H 04/29/18 14:00 INR 1.68 04/29/18 14:00 APTT 38.9 Seconds (26.9-38.3) H 05/01/18 07:38 - Constitutional Appears: Chronically Ill - Head Exam Head Exam: NORMAL INSPECTION - Neck Exam Neck Exam: absent: Lymphadenopathy, Meningismus - Respiratory Exam Respiratory Exam: Decreased Breath Sounds - Cardiovascular Exam Cardiovascular Exam: +S1, +S2 - GI/Abdominal Exam GI & Abdominal Exam: Soft. absent: Tenderness Assessment and Plan - Assessment and Plan (Free Text) Plan: Assessment Severe sepsis S/P VDRF in this patient S/P cardiac arrest, due to Bacteroides bacteremia, consider intra-abdominal / pelvic infection with note of possible lesion with fluid and gas in the uterus, R/O uterine neoplasm, R/O colonic lesions left leg fracture history of sepsis with E. coli urinary tract infection HTN DM PArkinson's disease depression chornic lymphocytic lymphoma CAD history of gastric cancer Plan continue Azactam and Flagyl; repeat blood cx are still positive for gram negative bacilli - will repeat blood cx in 2 days and we have ordered pelvic MRI to further investigate the findings of the CT A/P reviewed repeat CXR which does not show active disease discussed with family elevated WBC count may also be from steroids and it is slowly decreasing will continue to monitor clinically
--- NOTE | 2018-05-02 15:03 | PN ---
DATE: 05/02/2018 SUBJECTIVE: The patient is lethargic but without shortness of breath. PHYSICAL EXAMINATION: VITAL SIGNS: Blood pressure 114/47, heart rate is in the 90s. Afebrile. NECK: Negative JVD. LUNGS: Decreased breath sounds. HEART: S1 and S2. EXTREMITIES: Without edema. LABORATORY DATA: Hemoglobin is 7.7 with a white count of 22,000, BUN and creatinine is 70 and 2.2, glucose is 128. IMPRESSION: 1. Status post cardiopulmonary arrest. 2. Non-ST elevation myocardial infarction. 3. Renal failure. 4. Status post fracture of her ankle. 5. Anemia. PLAN: Given these findings, I have discussed the risks and benefits of cardiac catheterization with the patient's son, who apparently is the power of attorney law clerk. Risks and benefits were discussed in detail. The risk of doing a procedure at this time outweighs the potential benefits. He seems to understand what we discussed. All questions were answered. Eddi Page MD
--- NOTE | 2018-05-02 17:10 | PN ---
DATE: 05/02/2018 PULMONARY PROGRESS NOTE SUBJECTIVE: The patient was seen and examined in intensive care unit. She is now awake and on nasal cannula. Her current oxygen saturation is 100%. She is not in respiratory distress. PHYSICAL EXAMINATION: VITAL SIGNS: Her temperature is 96.8, pulse 105, respirations 20, pulse oximetry is 100 on nasal cannula. HEENT: Examination of the head, ears, nose, and throat is within normal limits. NECK: Supple. There is no jugular vein distention. CARDIOVASCULAR: S1, S2, no S3, regular. LUNGS: Diminished breath sounds at both bases with no wheezing. GASTROINTESTINAL: Soft, nontender. No organomegaly. EXTREMITIES: No pedal edema. No cyanosis. SKIN: No acute skin rash. NEUROLOGIC: No focal deficits. LABORATORY DATA: Reviewed. Arterial blood gas from this morning pH 7.37, PCO2 of 44 and PO2 of 87 on nasal cannula. Sodium 144, potassium reduced at 3.4, chloride 110, calcium reduced at 6.6, albumin is markedly reduced at 2.2, total protein of 4.9. WBCs elevated at 22.5 and hemoglobin reduced to 7.7. ASSESSMENT: 1. Respiratory insufficiency. 2. Hypoxia. 3. Improving mental status. 4. Anemia. 5. Leukocytosis. PLAN: The arterial blood gas shows normal pH with borderline PCO2 which is compensatory and good oxygenation on nasal cannula. I reviewed this morning's chest x-ray which shows mild cardiomegaly and clear lungs. The patient is improving and we will continue with administration of current nebulized medications. Continue with nasal cannula. Her oxygen saturation is stable. Jax Schulz MD MTDD
[2018-05-02] MEDS ORDERED: Levalbuterol 0.63 MG/3 ML Inhal Soln UD IH STA (22:26)
[2018-05-03] MEDS: Insulin Lispro (HUMAlog) HIGH Coverage SC SCH ×4 (00:26→17:59)
[2018-05-03] MEDS: Aztreonam 1 Gm in NS 100mL 100 ML IVPB SCH ×3 (05:23→21:47)
[2018-05-03] MEDS: metroNIDAZOLE IV 500 mg/100 ml 500 MG/100 ML BAG IVPB SCH ×3 (05:24→21:46)
[2018-05-03 06:22] LABS: ARTERIAL BLOOD GAS HCO3 23.2 mmol/L (21-28); ARTERIAL BLOOD GAS HEMOGLOBIN 6.7 g/dL (11.7-17.4); ARTERIAL BLOOD GAS O2 CAPACITY 9.4 mL/dl (16-24); ARTERIAL BLOOD GAS O2 CONTENT 9.4 ML/dl (15-23); ARTERIAL BLOOD GAS O2 SAT 99.7 % (95-98); ARTERIAL BLOOD GAS PCO2 42 mm/Hg (35-45); ARTERIAL BLOOD GAS PH 7.35 (7.35-7.45); ARTERIAL BLOOD GAS TCO2 24.5 mmol.L (22-28)
[2018-05-03 07:48] LABS: BASO # 0.01 K/mm3 (0.0-2.0); HEMOGLOBIN 7.8 g/dL (12.0-16.0); LYMPH # 3.7 (1.2-3.4); LYMPH % 13.5 % (22.0-35.0); MEAN CELL VOLUME 91.5 fl (80.0-105.0); MEAN CORPUSCULAR HGB CONC 32.8 g/dl (31.0-37.0); MONO # 0.4 (0.1-0.6); MONO % 1.5 % (1.0-6.0); RBC 2.6 10^6/uL (3.5-6.1)
[2018-05-03] MEDS: Arformoterol 15 mcg/2 ml Inh Sol IH SCH ×2 (07:54→19:52)
[2018-05-03 07:55] LABS: WHITE BLOOD COUNT 27.4 10^3/uL (4.5-11.0)
[2018-05-03] MEDS: Budesonide 0.5 mg/2 ml Inhal Susp UD IH SCH ×2 (07:55→19:55)
[2018-05-03 08:39] LABS: ALB/GLOB RATIO 0.9 (1.1-1.8); ALBUMIN 2.5 g/dL (3.0-4.8); CALCIUM 7.7 mg/dL (8.4-10.5)
[2018-05-03] MEDS: Carbidopa/Levodopa/Entacapone 37.5mg-150mg-200mg PO SCH ×3 (09:24→17:59)
[2018-05-03] MEDS ORDERED: Potassium Chloride 40 mEq/30 ml LIQ UD PO ONE (09:34)
[2018-05-03] MEDS: Thiamine 100 mg/ml Inj IV SCH (09:49)
[2018-05-03] MEDS ORDERED: Potassium Chloride 20 mEq ER Tab PO STA (10:20)
--- NOTE | 2018-05-03 12:26 | CP.PCM.PN ---
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 Maintain hemodynamics stable. Avoid hypotension. Patient not on ACEI/ARB due to recent LILIAN Monitor Input/Output, daily weights and renal function with basic metabolic panel agree with lasix as allowed by BP supplement lytes as needed No ANGELO due to uterine mass. PRBC as needed. Dose meds/antibiotics for reduced GFR. Avoid fleets enema/magnesium based laxatives. Avoid nephrotoxins/NSAIDs/ iodinated contrast (unless needed emergently) Glycemic control Further work up/management as per primary team Thanks for allowing me to participate in care of your patient. Will follow patient with you. Please call if any Qs. had d/w team and family bedside Dr Gutierrez [place] Office: [phone] Chief Complaint; unable to obtain source of Info: EMR Reason for consult: Acute Kidney Injury HPI: Pt is a 88 F with hx of DM (years), HTN carotid artery disease, CLL, gastric cancer, parkinson disease CKD 3 with baseline cr 1.4 in 2018 presented with complaints of fall, ankle fracture, being managed for sepsis shock, UTI, cardiac arrest and NSTEMI. Denies OTC/herbal meds or NSAIDs No recent iodinated contrast exposure. Noted obvious episodes of low BP (SBP in 60s). renal consult for LILIAN. family not aware of renal disease in past ROS: pt not able to communicate much. extubated. on BiPAP Physical Examination: General Appearance: Comfortable, in no acute respiratory distress but on BiPAp Vitals reviewed and noted as below Head; Atraumatic, normocephalic ENT: no ulcers no thrush. Tongue is midline. Oropharynx: no rash or ulcers. EYES: Pupils are equal, round Sclera is anicteric. Neck; supple no lymphadenopathy, no thyromegaly or bruit Lungs: Normal respiratory rate/effort. Breath sounds bilateral rales+ and reduced at bases Heart: Normal rate. s1s2 normal. No rub or gallop. Extremities: no edema. No varicose veins Neurological: Patient is awake alert follow commands Skin: Warm and dry. Normal turgor. No rash. Palpitation: Normal elasticity for age Abdomen: Abdomen is soft. Bowel sounds +. There is no abdominal tenderness, no guarding/rigidity no organomegaly Psych: unable MSK: no joint tenderness or swelling. Digits and nails normal, no deformity : kidney or bladder not palpable. has klein Labs/imaging reviewed. Past medical history, past surgical history, family history, social history, allergy reviewed and noted as below Family hx: no hx of CKD. Rest non-contributory Objective - Vital Signs/Intake and Output Vital Signs (last 24 hours): Temp Pulse Resp BP Pulse Ox 99.3 F 100 H 28 H 155/70 H 89 L 05/03/18 08:00 05/03/18 10:30 05/03/18 09:00 05/03/18 09:44 05/03/18 09:00 Intake and Output: 05/03/18 05/03/18 06:59 18:59 Intake Total 1100 Output Total 375 Balance 725 - Medications Medications: Current Medications Acetaminophen (Tylenol 325mg Tab) 650 mg PO Q6H PRN PRN Reason: Fever >100.4 F Last Admin: 04/28/18 01:29 Dose: 650 mg Albuterol/Ipratropium (Duoneb 3 Mg/0.5 Mg (3 Ml) Ud) 3 ml IH [id number] PRN PRN Reason: Shortness of Breath Last Admin: 05/02/18 13:51 Dose: 3 ml Arformoterol Tartrate (Brovana) 15 mcg IH [id number] [facility] Last Admin: 05/03/18 07:54 Dose: 15 mcg Aspirin (Aspirin Chewable) 81 mg PO DAILY [facility] Last Admin: 05/03/18 09:24 Dose: 81 mg Atorvastatin Calcium (Lipitor) 40 mg PO DIN [facility] Last Admin: 05/02/18 17:04 Dose: 40 mg Budesonide (Pulmicort Respules) 0.5 mg IH [id number] [facility] Last Admin: 05/03/18 07:55 Dose: 0.5 mg Carbidopa/Levodopa/Entacapone (Stalevo 150) 1 tab PO TID [facility] Last Admin: 05/03/18 09:24 Dose: 1 tab Clopidogrel Bisulfate (Plavix) 75 mg PO DAILY [facility] Last Admin: 05/03/18 09:25 Dose: 75 mg Dextrose (Dextrose 50% Inj) 0 ml IV STAT PRN; Protocol PRN Reason: Hypoglycemia Protocol Docusate Sodium (Colace) 100 mg PO BID [facility] Last Admin: 04/29/18 10:33 Dose: 100 mg Furosemide (Lasix) 40 mg IVP Q12H [facility] Last Admin: 05/03/18 09:44 Dose: 40 mg Heparin Sodium (Porcine) (Heparin) 5,000 units SC Q8 [facility]; Protocol Last Admin: 05/03/18 05:24 Dose: 5,000 units Aztreonam (Azactam 1 Gm) 100 mls @ 100 mls/hr IVPB Q8 [facility]; Protocol Stop: 05/06/18 09:46 Last Admin: 05/03/18 05:23 Dose: 100 mls/hr Dextrose (Dextrose 5% In Water 1000 Ml) 1,000 mls @ 0 mls/hr IV .Q0M PRN; Protocol PRN Reason: Hypoglycemia Protocol Metronidazole (Flagyl) 500 mg in 100 mls @ 100 mls/hr IVPB Q8 [facility]; Protocol Last Admin: 05/03/18 05:24 Dose: 100 mls/hr Insulin Human Lispro (Humalog High) 0 units SC Q6 [facility]; Protocol Last Admin: 05/03/18 05:59 Dose: Not Given Lisinopril (Zestril) 10 mg PO DAILY [facility] Last Admin: 04/29/18 10:25 Dose: Not Given Methylprednisolone (Solu-Medrol) 60 mg IVP Q12 [facility] Last Admin: 05/03/18 09:43 Dose: 60 mg Metoprolol Tartrate (Lopressor) 25 mg PO BID [facility] Last Admin: 04/29/18 10:25 Dose: Not Given Nicotine (Nicoderm Cq) 1 patch TD DAILY [facility] Last Admin: 05/03/18 09:23 Dose: 1 patch Pantoprazole Sodium (Protonix Inj) 40 mg IVP DAILY [facility] Last Admin: 05/03/18 09:23 Dose: 40 mg Potassium Chloride (K-Dur 20 Meq Er Tab) 40 meq PO BID [facility] Stop: 05/03/18 18:01 Zolpidem Tartrate (Ambien) 5 mg PO HS PRN; Protocol PRN Reason: Insomnia Last Admin: 04/28/18 22:12 Dose: 5 mg - Labs Labs: 05/03/18 07:15 05/03/18 07:15 PT 18.7 SECONDS (9.4-12.5) H 04/29/18 14:00 INR 1.68 04/29/18 14:00 APTT 38.9 Seconds (26.9-38.3) H 05/01/18 07:38
--- NOTE | 2018-05-03 12:46 | RAD ---
Date of service: 05/03/2018 HISTORY: f/u COMPARISON: Follow-up comparison chest 05/02/2018. FINDINGS: Interval removal right IJ central line. LUNGS: Mild pulmonary venous congestive changes possibly chronic compensated CHF. Bibasilar atelectasis left greater than right. Suspect small bilateral effusions left larger than right. PLEURA: No significant pleural effusion identified, no pneumothorax apparent. CARDIOVASCULAR: Mild aortic atherosclerotic calcification present. Heart size unchanged . OSSEOUS STRUCTURES: No significant abnormalities. VISUALIZED UPPER ABDOMEN: Normal. OTHER FINDINGS: None. IMPRESSION: Interval removal right IJ central line Mild pulmonary venous congestive changes possibly chronic compensated CHF. Bibasilar atelectasis left greater than right. Suspect small bilateral effusions left larger than right.
[2018-05-03] MEDS: Albuterol-Ipratrop 3 mg / 0.5 (3 ml) UD IH PRN ×2 (13:13→19:56)
--- NOTE | 2018-05-03 13:30 | CP.CCUPN ---
<Sandee Huang - Last Filed: 05/03/18 14:15> CCU Subjective - Physician Review Subjective (Free Text): Sandee Huang, PGY-1, ICU Progress Note for Dr. Ngo Patient seen and evaluated at bedside. Patient had no acute events overnight. This morning, patient was in respiratory distress with audible wheezes and was subsequently placed on BiPap. Patient is currently resting in bed in no acute distress. Patient reports thirst upon presentation. 12-point ROS was unremarkable except for what was mentioned above. CCU Objective - Vital Signs / Intake & Output Vital Signs (Last 4 hours): Vital Signs Pulse BP 05/03/18 10:30 100 H 05/03/18 09:44 155/70 H Intake and Output (Last 8hrs): Intake & Output 05/02/18 05/03/18 05/03/18 22:59 06:59 14:59 Intake Total 1160 1100 Output Total 225 375 Balance 935 725 Intake: IV 1000 1100 Right Wrist 600 antibiotics 300 500 maintenance 700 Oral 160 Output: Urine 225 375 Urethral (Masters) 225 375 Other: # Bowel Movements 1 - Physical Exam Head: Positive for: Atraumatic, Normocephalic Pupils: Positive for: PERRL Extroacular Muscles: Positive for: EOMI Mouth: Positive for: Moist Mucous Membranes Neck: Positive for: Normal Range of Motion Respiratory/Chest: Positive for: Wheezes. Negative for: Respiratory Distress, Accessory Muscle Use Cardiovascular: Positive for: Regular Rate and Rhythm, Normal S1, S2. Negative for: Murmurs Abdomen: Negative for: Tenderness, Distention, Peritoneal Signs Upper Extremity: Positive for: Normal ROM, NORMAL PULSES, Other (multiple small ecchymotic areas consistent with multiple falls). Negative for: Cyanosis, Edema, Tenderness, Swelling Lower Extremity: Positive for: Edema (left ankle), NORMAL PULSES, Tenderness (left ankle), Swelling (left ankle), Neurovascularly Intact, Capillary Refill < 2 s. Negative for: CALF TENDERNESS, Normal ROM (decreased ROM d/t swelling at left nakle normal ROm in all other lowere extremity joints) Neurological: Positive for: GCS=15, CN II-XII Intact Skin: Positive for: Warm, Dry Psychiatric: Positive for: Alert, Oriented x 3 (AAOx2), Normal Concentration. Negative for: Normal Insight - Medications Active Medications: Active Medications Generic Name Dose Route Start Last Admin Trade Name Freq PRN Reason Stop Dose Admin Acetaminophen 650 mg 04/28/18 00:59 04/28/18 01:29 Tylenol 325mg Tab PO 650 mg Q6H PRN Administration Fever >100.4 F Albuterol/Ipratropium 3 ml 05/02/18 07:13 05/03/18 13:13 Duoneb 3 Mg/0.5 Mg (3 Ml) Ud IH 3 ml [id number] PRN Administration Shortness of Breath Arformoterol Tartrate 15 mcg 05/01/18 20:00 05/03/18 07:54 Brovana IH 15 mcg [id number] STEVEN Administration Aspirin 81 mg 04/27/18 10:00 05/03/18 09:24 Aspirin Chewable PO 81 mg DAILY STEVEN Administration Atorvastatin Calcium 40 mg 05/02/18 17:00 05/02/18 17:04 Lipitor PO 40 mg DIN STEVEN Administration Budesonide 0.5 mg 05/01/18 20:00 05/03/18 07:55 Pulmicort Respules IH 0.5 mg [id number] STEVEN Administration Carbidopa/Levodopa/Entacapone 1 tab 04/27/18 10:00 05/03/18 09:24 Stalevo 150 PO 1 tab TID STEVEN Administration Clopidogrel Bisulfate 75 mg 04/29/18 10:00 05/03/18 09:25 Plavix PO 75 mg DAILY STEVEN Administration Dextrose 0 ml 04/29/18 12:32 Dextrose 50% Inj IV STAT PRN Hypoglycemia Protocol Protocol Docusate Sodium 100 mg 04/27/18 10:00 04/29/18 10:33 Colace PO 100 mg BID STEVEN Administration Furosemide 40 mg 05/03/18 09:30 05/03/18 09:44 Lasix IVP 40 mg Q12H STEVEN Administration Heparin Sodium (Porcine) 5,000 units 05/01/18 22:00 05/03/18 05:24 Heparin SC 5,000 units Q8 STEVEN Administration Protocol Aztreonam 100 mls @ 100 mls/hr 04/29/18 09:45 05/03/18 05:23 Azactam 1 Gm IVPB 05/06/18 09:46 100 mls/hr Q8 STEVEN Administration Protocol Dextrose 1,000 mls @ 0 mls/hr 04/29/18 12:32 Dextrose 5% In Water 1000 Ml IV .Q0M PRN Hypoglycemia Protocol Protocol Per Protocol Metronidazole 500 mg in 100 mls @ 100 mls/hr 05/02/18 14:00 05/03/18 05:24 Flagyl IVPB 100 mls/hr Q8 STEVEN Administration Protocol Insulin Human Lispro 0 units 04/30/18 18:00 05/03/18 05:59 Humalog High SC Not Given Q6 STEVEN Protocol Lisinopril 10 mg 04/27/18 10:00 04/29/18 10:25 Zestril PO Not Given DAILY STEVEN Methylprednisolone 60 mg 05/03/18 10:00 05/03/18 09:43 Solu-Medrol IVP 60 mg Q12 STEVEN Administration Metoprolol Tartrate 25 mg 04/28/18 08:32 04/29/18 10:25 Lopressor PO Not Given BID STEVEN Nicotine 1 patch 05/02/18 10:00 05/03/18 09:23 Nicoderm Cq TD 1 patch DAILY STEVEN Administration Pantoprazole Sodium 40 mg 04/29/18 10:00 05/03/18 09:23 Protonix Inj IVP 40 mg DAILY STEVEN Administration Potassium Chloride 40 meq 05/03/18 11:00 K-Dur 20 Meq Er Tab PO 05/03/18 18:01 BID STEVEN Zolpidem Tartrate 5 mg 04/28/18 20:25 04/28/18 22:12 Ambien PO 5 mg HS PRN Administration Insomnia Protocol - Patient Studies Lab Studies: Microbiology Studies 05/01/18 11:10 Blood Culture - Final Blood-Venous Bacteroides Species Gram Stain - Final 05/01/18 11:10 Blood Culture - Final Blood-Venous Bacteroides Species Gram Stain - Final 04/29/18 04:10 Blood Culture - Final Blood-Venous Bacteroides Species Gram Stain - Final 04/29/18 03:40 Blood Culture - Final Blood-Venous Bacteroides Species Gram Stain - Final Lab Studies 05/03/18 05/03/18 05/03/18 Range/Units 11:54 07:15 07:15 WBC 27.4 H* D (4.5-11.0) 10^3/uL RBC 2.60 L (3.5-6.1) 10^6/uL Hgb 7.8 L (12.0-16.0) g/dL Hct 23.8 L (36.0-48.0) % MCV 91.5 (80.0-105.0) fl MCH 30.0 (25.0-35.0) pg MCHC 32.8 (31.0-37.0) g/dl RDW 15.0 H (11.5-14.5) % Plt Count 209 (120.0-450.0) 10^3/uL MPV 10.0 (7.0-11.0) fl Neut % (Auto) 85.0 H (50.0-68.0) % Lymph % (Auto) 13.5 L (22.0-35.0) % [place] % (Auto) 1.5 (1.0-6.0) % Eos % (Auto) 0.0 L (1.5-5.0) % Baso % (Auto) 0.0 (0.0-3.0) % Lymph # (Auto) 3.7 H (1.2-3.4) [place] # (Auto) 0.4 (0.1-0.6) Eos # (Auto) 0.0 (0.0-0.7) Baso # (Auto) 0.01 (0.0-2.0) K/mm3 Absolute Neuts (auto) 23.29 H (1.4-6.5) pCO2 (35-45) mm/Hg pO2 (80-100) mm/Hg HCO3 (21-28) mmol/L ABG pH (7.35-7.45) ABG Total CO2 (22-28) mmol.L ABG O2 Saturation (95-98) % ABG O2 Content (15-23) ML/dl ABG Base Excess (-2.0-3.0) mmol/L ABG Hemoglobin (11.7-17.4) g/dL ABG Carboxyhemoglobin (0.5-1.5) % POC ABG HHb (Measured) (0-5) % ABG Methemoglobin (0.0-3.0) % ABG O2 Capacity (16-24) mL/dl Hgb O2 Saturation (95.0-98.0) % FiO2 % Sodium 145 (132-148) mmol/L Potassium 3.3 L (3.6-5.0) mmol/L Chloride 115 H (98-107) mmol/L Carbon Dioxide 23 (21-33) mmol/L Anion Gap 11 (10-20) BUN 73 H (7-21) mg/dL Creatinine 2.0 H (0.7-1.2) mg/dl Est GFR ( Amer) 28 Est GFR (Non-Af Amer) 24 POC Glucose (mg/dL) 367 H (65-110) mg/dL Random Glucose 182 H (70-110) mg/dL Calcium 7.7 L (8.4-10.5) mg/dL Total Bilirubin 0.2 (0.2-1.3) mg/dL AST 59 H D (14-36) U/L ALT 86 H (7-56) U/L Alkaline Phosphatase 97 (38-126) U/L Total Protein 5.2 L (5.8-8.3) g/dL Albumin 2.5 L (3.0-4.8) g/dL Globulin 2.7 gm/dL Albumin/Globulin Ratio 0.9 L (1.1-1.8) 05/03/18 05/03/18 05/03/18 Range/Units 06:14 05:58 00:24 WBC (4.5-11.0) 10^3/uL RBC (3.5-6.1) 10^6/uL Hgb (12.0-16.0) g/dL Hct (36.0-48.0) % MCV (80.0-105.0) fl MCH (25.0-35.0) pg MCHC (31.0-37.0) g/dl RDW (11.5-14.5) % Plt Count (120.0-450.0) 10^3/uL MPV (7.0-11.0) fl Neut % (Auto) (50.0-68.0) % Lymph % (Auto) (22.0-35.0) % [place] % (Auto) (1.0-6.0) % Eos % (Auto) (1.5-5.0) % Baso % (Auto) (0.0-3.0) % Lymph # (Auto) (1.2-3.4) [place] # (Auto) (0.1-0.6) Eos # (Auto) (0.0-0.7) Baso # (Auto) (0.0-2.0) K/mm3 Absolute Neuts (auto) (1.4-6.5) pCO2 42 (35-45) mm/Hg pO2 120.0 H (80-100) mm/Hg HCO3 23.2 (21-28) mmol/L ABG pH 7.35 (7.35-7.45) ABG Total CO2 24.5 (22-28) mmol.L ABG O2 Saturation 99.7 H (95-98) % ABG O2 Content 9.4 L (15-23) ML/dl ABG Base Excess -2.2 L (-2.0-3.0) mmol/L ABG Hemoglobin 6.7 L (11.7-17.4) g/dL ABG Carboxyhemoglobin 2.0 H (0.5-1.5) % POC ABG HHb (Measured) 0.3 (0-5) % ABG Methemoglobin 0.4 (0.0-3.0) % ABG O2 Capacity 9.4 L (16-24) mL/dl Hgb O2 Saturation 97.3 (95.0-98.0) % FiO2 40.0 % Sodium (132-148) mmol/L Potassium (3.6-5.0) mmol/L Chloride (98-107) mmol/L Carbon Dioxide (21-33) mmol/L Anion Gap (10-20) BUN (7-21) mg/dL Creatinine (0.7-1.2) mg/dl Est GFR ( Amer) Est GFR (Non-Af Amer) POC Glucose (mg/dL) 275 H 263 H (65-110) mg/dL Random Glucose (70-110) mg/dL Calcium (8.4-10.5) mg/dL Total Bilirubin (0.2-1.3) mg/dL AST (14-36) U/L ALT (7-56) U/L Alkaline Phosphatase (38-126) U/L Total Protein (5.8-8.3) g/dL Albumin (3.0-4.8) g/dL Globulin gm/dL Albumin/Globulin Ratio (1.1-1.8) 05/02/18 05/02/18 Range/Units 21:50 16:36 WBC (4.5-11.0) 10^3/uL RBC (3.5-6.1) 10^6/uL Hgb (12.0-16.0) g/dL Hct (36.0-48.0) % MCV (80.0-105.0) fl MCH (25.0-35.0) pg MCHC (31.0-37.0) g/dl RDW (11.5-14.5) % Plt Count (120.0-450.0) 10^3/uL MPV (7.0-11.0) fl Neut % (Auto) (50.0-68.0) % Lymph % (Auto) (22.0-35.0) % [place] % (Auto) (1.0-6.0) % Eos % (Auto) (1.5-5.0) % Baso % (Auto) (0.0-3.0) % Lymph # (Auto) (1.2-3.4) [place] # (Auto) (0.1-0.6) Eos # (Auto) (0.0-0.7) Baso # (Auto) (0.0-2.0) K/mm3 Absolute Neuts (auto) (1.4-6.5) pCO2 (35-45) mm/Hg pO2 (80-100) mm/Hg HCO3 (21-28) mmol/L ABG pH (7.35-7.45) ABG Total CO2 (22-28) mmol.L ABG O2 Saturation (95-98) % ABG O2 Content (15-23) ML/dl ABG Base Excess (-2.0-3.0) mmol/L ABG Hemoglobin (11.7-17.4) g/dL ABG Carboxyhemoglobin (0.5-1.5) % POC ABG HHb (Measured) (0-5) % ABG Methemoglobin (0.0-3.0) % ABG O2 Capacity (16-24) mL/dl Hgb O2 Saturation (95.0-98.0) % FiO2 % Sodium (132-148) mmol/L Potassium (3.6-5.0) mmol/L Chloride (98-107) mmol/L Carbon Dioxide (21-33) mmol/L Anion Gap (10-20) BUN (7-21) mg/dL Creatinine (0.7-1.2) mg/dl Est GFR ( Amer) Est GFR (Non-Af Amer) POC Glucose (mg/dL) 240 H 214 H (65-110) mg/dL Random Glucose (70-110) mg/dL Calcium (8.4-10.5) mg/dL Total Bilirubin (0.2-1.3) mg/dL AST (14-36) U/L ALT (7-56) U/L Alkaline Phosphatase (38-126) U/L Total Protein (5.8-8.3) g/dL Albumin (3.0-4.8) g/dL Globulin gm/dL Albumin/Globulin Ratio (1.1-1.8) Laboratory Results - last 24 hr 05/02/18 05/02/18 05/03/18 16:36 21:50 00:24 WBC RBC Hgb Hct MCV MCH MCHC RDW Plt Count MPV Neut % (Auto) Lymph % (Auto) [place] % (Auto) Eos % (Auto) Baso % (Auto) Lymph # (Auto) [place] # (Auto) Eos # (Auto) Baso # (Auto) Absolute Neuts (auto) pCO2 pO2 HCO3 ABG pH ABG Total CO2 ABG O2 Saturation ABG O2 Content ABG Base Excess ABG Hemoglobin ABG Carboxyhemoglobin POC ABG HHb (Measured) ABG Methemoglobin ABG O2 Capacity Hgb O2 Saturation FiO2 Sodium Potassium Chloride Carbon Dioxide Anion Gap BUN Creatinine Est GFR ( Amer) Est GFR (Non-Af Amer) POC Glucose (mg/dL) 214 H 240 H 263 H Random Glucose Calcium Total Bilirubin AST ALT Alkaline Phosphatase Total Protein Albumin Globulin Albumin/Globulin Ratio 05/03/18 05/03/18 05/03/18 05:58 06:14 07:15 WBC 27.4 H* D RBC 2.60 L Hgb 7.8 L Hct 23.8 L MCV 91.5 MCH 30.0 MCHC 32.8 RDW 15.0 H Plt Count 209 MPV 10.0 Neut % (Auto) 85.0 H Lymph % (Auto) 13.5 L [place] % (Auto) 1.5 Eos % (Auto) 0.0 L Baso % (Auto) 0.0 Lymph # (Auto) 3.7 H [place] # (Auto) 0.4 Eos # (Auto) 0.0 Baso # (Auto) 0.01 Absolute Neuts (auto) 23.29 H pCO2 42 pO2 120.0 H HCO3 23.2 ABG pH 7.35 ABG Total CO2 24.5 ABG O2 Saturation 99.7 H ABG O2 Content 9.4 L ABG Base Excess -2.2 L ABG Hemoglobin 6.7 L ABG Carboxyhemoglobin 2.0 H POC ABG HHb (Measured) 0.3 ABG Methemoglobin 0.4 ABG O2 Capacity 9.4 L Hgb O2 Saturation 97.3 FiO2 40.0 Sodium Potassium Chloride Carbon Dioxide Anion Gap BUN Creatinine Est GFR ( Amer) Est GFR (Non-Af Amer) POC Glucose (mg/dL) 275 H Random Glucose Calcium Total Bilirubin AST ALT Alkaline Phosphatase Total Protein Albumin Globulin Albumin/Globulin Ratio 05/03/18 05/03/18 07:15 11:54 WBC RBC Hgb Hct MCV MCH MCHC RDW Plt Count MPV Neut % (Auto) Lymph % (Auto) [place] % (Auto) Eos % (Auto) Baso % (Auto) Lymph # (Auto) [place] # (Auto) Eos # (Auto) Baso # (Auto) Absolute Neuts (auto) pCO2 pO2 HCO3 ABG pH ABG Total CO2 ABG O2 Saturation ABG O2 Content ABG Base Excess ABG Hemoglobin ABG Carboxyhemoglobin POC ABG HHb (Measured) ABG Methemoglobin ABG O2 Capacity Hgb O2 Saturation FiO2 Sodium 145 Potassium 3.3 L Chloride 115 H Carbon Dioxide 23 Anion Gap 11 BUN 73 H Creatinine 2.0 H Est GFR ( Amer) 28 Est GFR (Non-Af Amer) 24 POC Glucose (mg/dL) 367 H Random Glucose 182 H Calcium 7.7 L Total Bilirubin 0.2 AST 59 H D ALT 86 H Alkaline Phosphatase 97 Total Protein 5.2 L Albumin 2.5 L Globulin 2.7 Albumin/Globulin Ratio 0.9 L Radiology Impressions: Radiology Impressions Chest X-Ray 05/03/18 06:00 IMPRESSION: Interval removal right IJ central line Mild pulmonary venous congestive changes possibly chronic compensated CHF. Bibasilar atelectasis left greater than right. Suspect small bilateral effusions left larger than right. Fingerstick Blood Sugar Results: 114 Review of Systems - Review of Systems Review of Systems: except for what was mentioned in HPI Critical Care Progress Note - Ventilator Checklist Head of Bed 30 Degrees: Yes PUD Prophalyxis: Yes DVT Prophylaxis: Yes - Nutrition Nutrition: Nutrition Category Date Time Status Pureed [Dysphagia/Modified Consistency Diet] [DIET] Diets 05/02/18 Lunch Ordered Assessment/Plan - Assessment and Plan (Free Text) Assessment: 88 year old female with past medical history of right ICA stenosis status post carotid endarterectomy, hypertension, hyperlipidemia, diabetes mellitus type II, Parkinson's disease was diagnosed with multisystem organ failure 2/2 to hypoperfusion from cardiogenic shock vs. distributive shock. Today, patient went into respiratory distress 2/2 to cardiogenic edema vs. noncardiogenic edema. MODS is improving today. Plan: Neuro: -AAOx3 -Head CT from 04/30 showed no acute intracranial hemorrhage Parkinson's disease -Continue with levodopa/carbidopa Cardio: NSTEMI -RRR -Continue with aspirin, plavix. Lopressor held due to hypotension. -Maintain MAP>65. -Monitor for S/S, HD compromise. Hypotension-resolved -Continue to monitor blood pressure. Pulm: COPD -Started on BiPap this morning with settings of 12/6, FiO2: 35%, RR:14 -Continue Duonebs Q6 -Continue brovana 15 mcg Q12 and pulmicort 0.5 mg Q12 -Patient's solucortef increased to 60 mg Q12 Cardiogenic Pulmonary Edema -Elevated BNP upon admission -Patient started on lasix 40 mg IV BID -Beta christian held due to hypotension Nicotine Dependence -Nicotine patch continued GI: Acute Liver Injury -Improved LFTs today -Abdominal CT 05/01: large collection of fluid and gas in uterus measuring 9.7 cm. Concern for cervical/endometrial stenosis for neoplasm. Cholelithiasis without cholecystitis. Diet -Tolerating pureed diet well GI prophylaxis -Protonix 40 mg IV daily /Nephro: Acute tubular necrosis -MODS with ischemic injury to kidney leading to ATN. Improvement today. -BUN/Cr improved at 73/2.0. Creatinine was 2.2 yesterday. Baseline is 1.0 -Avoid nephrotoxins such as lisinopril and losartan. -UCx shows pansensitive E. Coli covered with cefepime. -NS at 75 cc/hr -Good urine output. Masters intact -Continue monitoring. -Replete electrolytes as needed. -Maintain euvolemia. Endocrinology: Diabetes Mellitus type II -Random glucose: 182 -High sliding scale insulin -Maintain euglycemia. Heme/Onc: -Abdominal CT: large collection of fluid and gas in uterus measuring 9.7 cm. Concern for cervical/endometrial stenosis for neoplasm. Normocytic Anemia -H/H stable at 7.8/23.8 from Hgb of 7.7 yesterday. -No signs of HD compromise. -Continue monitoring H/H DVT prophylaxis -Heparin 5000 U Q8 ID: Sepsis 2/2 to UTI vs. Gastrointestinal Pathology -Afebrile, leukocytosis worsened at 27.4 from 22.5 -Abdominal CT: large collection of fluid and gas in uterus measuring 9.7 cm. Concern for cervical/endometrial stenosis for neoplasm. -Blood culture: positive for Bacteriodes -UCx: pansensitive E. Coli -Procalcitonin: 27.27 from 0.69 -Lactate: trending down to 1.4 -Continue with aztreonam day 5 and flagyl day 2. -Follow up recommendations from Dr. Becker for antibiotics for newfound BCx positive for Bacteriodes. MANAGER ORANGE: -Abdominal CT: large collection of fluid and gas in uterus measuring 9.7 cm. Concern for cervical/endometrial stenosis for neoplasm. -Follow up Abdominal and Pelvis MRI for further evaluation Patient seen and examined with Dr. Ngo. - Date & Time Date: 05/03/18 Time: 13:34 <Irwin Ngo - Last Filed: 05/03/18 14:47> CCU Objective - Vital Signs / Intake & Output Intake and Output (Last 8hrs): Intake & Output 05/02/18 05/03/18 05/03/18 22:59 06:59 14:59 Intake Total 1160 1100 Output Total 225 375 Balance 935 725 Intake: IV 1000 1100 Right Wrist 600 antibiotics 300 500 maintenance 700 Oral 160 Output: Urine 225 375 Urethral (Masters) 225 375 Other: # Bowel Movements 1 - Medications Active Medications: Active Medications Generic Name Dose Route Start Last Admin Trade Name Freq PRN Reason Stop Dose Admin Acetaminophen 650 mg 04/28/18 00:59 04/28/18 01:29 Tylenol 325mg Tab PO 650 mg Q6H PRN Administration Fever >100.4 F Albuterol/Ipratropium 3 ml 05/02/18 07:13 05/03/18 13:13 Duoneb 3 Mg/0.5 Mg (3 Ml) Ud IH 3 ml [id number] PRN Administration Shortness of Breath Arformoterol Tartrate 15 mcg 05/01/18 20:00 05/03/18 07:54 Brovana IH 15 mcg [id number] STEVEN Administration Aspirin 81 mg 04/27/18 10:00 05/03/18 09:24 Aspirin Chewable PO 81 mg DAILY STEVEN Administration Atorvastatin Calcium 40 mg 05/02/18 17:00 05/02/18 17:04 Lipitor PO 40 mg DIN STEVEN Administration Budesonide 0.5 mg 05/01/18 20:00 05/03/18 07:55 Pulmicort Respules IH 0.5 mg [id number] STEVEN Administration Carbidopa/Levodopa/Entacapone 1 tab 04/27/18 10:00 05/03/18 09:24 Stalevo 150 PO 1 tab TID STEVEN Administration Clopidogrel Bisulfate 75 mg 04/29/18 10:00 05/03/18 09:25 Plavix PO 75 mg DAILY STEVEN Administration Dextrose 0 ml 04/29/18 12:32 Dextrose 50% Inj IV STAT PRN Hypoglycemia Protocol Protocol Docusate Sodium 100 mg 04/27/18 10:00 04/29/18 10:33 Colace PO 100 mg BID STEVEN Administration Furosemide 40 mg 05/03/18 09:30 05/03/18 09:44 Lasix IVP 40 mg Q12H STEVEN Administration Heparin Sodium (Porcine) 5,000 units 05/01/18 22:00 05/03/18 05:24 Heparin SC 5,000 units Q8 STEVEN Administration Protocol Aztreonam 100 mls @ 100 mls/hr 04/29/18 09:45 05/03/18 05:23 Azactam 1 Gm IVPB 05/06/18 09:46 100 mls/hr Q8 STEVEN Administration Protocol Dextrose 1,000 mls @ 0 mls/hr 04/29/18 12:32 Dextrose 5% In Water 1000 Ml IV .Q0M PRN Hypoglycemia Protocol Protocol Per Protocol Metronidazole 500 mg in 100 mls @ 100 mls/hr 05/02/18 14:00 05/03/18 05:24 Flagyl IVPB 100 mls/hr Q8 STEVEN Administration Protocol Insulin Human Lispro 0 units 04/30/18 18:00 05/03/18 05:59 Humalog High SC Not Given Q6 [facility] Protocol Lisinopril 10 mg 04/27/18 10:00 04/29/18 10:25 Zestril PO Not Given DAILY STEVEN Methylprednisolone 60 mg 05/03/18 10:00 05/03/18 09:43 Solu-Medrol IVP 60 mg Q12 STEVEN Administration Metoprolol Tartrate 25 mg 04/28/18 08:32 04/29/18 10:25 Lopressor PO Not Given BID STEVEN Nicotine 1 patch 05/02/18 10:00 05/03/18 09:23 Nicoderm Cq TD 1 patch DAILY STEVEN Administration Pantoprazole Sodium 40 mg 04/29/18 10:00 05/03/18 09:23 Protonix Inj IVP 40 mg DAILY STEVEN Administration Potassium Chloride 40 meq 05/03/18 11:00 K-Dur 20 Meq Er Tab PO 05/03/18 18:01 BID STEVEN Zolpidem Tartrate 5 mg 04/28/18 20:25 04/28/18 22:12 Ambien PO 5 mg HS PRN Administration Insomnia Protocol - Patient Studies Lab Studies: Microbiology Studies 05/01/18 11:10 Blood Culture - Final Blood-Venous Bacteroides Species Gram Stain - Final 05/01/18 11:10 Blood Culture - Final Blood-Venous Bacteroides Species Gram Stain - Final 04/29/18 04:10 Blood Culture - Final Blood-Venous Bacteroides Species Gram Stain - Final 04/29/18 03:40 Blood Culture - Final Blood-Venous Bacteroides Species Gram Stain - Final Lab Studies 05/03/18 05/03/18 05/03/18 Range/Units 11:54 07:15 07:15 WBC 27.4 H* D (4.5-11.0) 10^3/uL RBC 2.60 L (3.5-6.1) 10^6/uL Hgb 7.8 L (12.0-16.0) g/dL Hct 23.8 L (36.0-48.0) % MCV 91.5 (80.0-105.0) fl MCH 30.0 (25.0-35.0) pg MCHC 32.8 (31.0-37.0) g/dl RDW 15.0 H (11.5-14.5) % Plt Count 209 (120.0-450.0) 10^3/uL MPV 10.0 (7.0-11.0) fl Neut % (Auto) 85.0 H (50.0-68.0) % Lymph % (Auto) 13.5 L (22.0-35.0) % [place] % (Auto) 1.5 (1.0-6.0) % Eos % (Auto) 0.0 L (1.5-5.0) % Baso % (Auto) 0.0 (0.0-3.0) % Lymph # (Auto) 3.7 H (1.2-3.4) [place] # (Auto) 0.4 (0.1-0.6) Eos # (Auto) 0.0 (0.0-0.7) Baso # (Auto) 0.01 (0.0-2.0) K/mm3 Absolute Neuts (auto) 23.29 H (1.4-6.5) pCO2 (35-45) mm/Hg pO2 (80-100) mm/Hg HCO3 (21-28) mmol/L ABG pH (7.35-7.45) ABG Total CO2 (22-28) mmol.L ABG O2 Saturation (95-98) % ABG O2 Content (15-23) ML/dl ABG Base Excess (-2.0-3.0) mmol/L ABG Hemoglobin (11.7-17.4) g/dL ABG Carboxyhemoglobin (0.5-1.5) % POC ABG HHb (Measured) (0-5) % ABG Methemoglobin (0.0-3.0) % ABG O2 Capacity (16-24) mL/dl Hgb O2 Saturation (95.0-98.0) % FiO2 % Sodium 145 (132-148) mmol/L Potassium 3.3 L (3.6-5.0) mmol/L Chloride 115 H (98-107) mmol/L Carbon Dioxide 23 (21-33) mmol/L Anion Gap 11 (10-20) BUN 73 H (7-21) mg/dL Creatinine 2.0 H (0.7-1.2) mg/dl Est GFR ( Amer) 28 Est GFR (Non-Af Amer) 24 POC Glucose (mg/dL) 367 H (65-110) mg/dL Random Glucose 182 H (70-110) mg/dL Calcium 7.7 L (8.4-10.5) mg/dL Total Bilirubin 0.2 (0.2-1.3) mg/dL AST 59 H D (14-36) U/L ALT 86 H (7-56) U/L Alkaline Phosphatase 97 (38-126) U/L Total Protein 5.2 L (5.8-8.3) g/dL Albumin 2.5 L (3.0-4.8) g/dL Globulin 2.7 gm/dL Albumin/Globulin Ratio 0.9 L (1.1-1.8) 05/03/18 05/03/18 05/03/18 Range/Units 06:14 05:58 00:24 WBC (4.5-11.0) 10^3/uL RBC (3.5-6.1) 10^6/uL Hgb (12.0-16.0) g/dL Hct (36.0-48.0) % MCV (80.0-105.0) fl MCH (25.0-35.0) pg MCHC (31.0-37.0) g/dl RDW (11.5-14.5) % Plt Count (120.0-450.0) 10^3/uL MPV (7.0-11.0) fl Neut % (Auto) (50.0-68.0) % Lymph % (Auto) (22.0-35.0) % [place] % (Auto) (1.0-6.0) % Eos % (Auto) (1.5-5.0) % Baso % (Auto) (0.0-3.0) % Lymph # (Auto) (1.2-3.4) [place] # (Auto) (0.1-0.6) Eos # (Auto) (0.0-0.7) Baso # (Auto) (0.0-2.0) K/mm3 Absolute Neuts (auto) (1.4-6.5) pCO2 42 (35-45) mm/Hg pO2 120.0 H (80-100) mm/Hg HCO3 23.2 (21-28) mmol/L ABG pH 7.35 (7.35-7.45) ABG Total CO2 24.5 (22-28) mmol.L ABG O2 Saturation 99.7 H (95-98) % ABG O2 Content 9.4 L (15-23) ML/dl ABG Base Excess -2.2 L (-2.0-3.0) mmol/L ABG Hemoglobin 6.7 L (11.7-17.4) g/dL ABG Carboxyhemoglobin 2.0 H (0.5-1.5) % POC ABG HHb (Measured) 0.3 (0-5) % ABG Methemoglobin 0.4 (0.0-3.0) % ABG O2 Capacity 9.4 L (16-24) mL/dl Hgb O2 Saturation 97.3 (95.0-98.0) % FiO2 40.0 % Sodium (132-148) mmol/L Potassium (3.6-5.0) mmol/L Chloride (98-107) mmol/L Carbon Dioxide (21-33) mmol/L Anion Gap (10-20) BUN (7-21) mg/dL Creatinine (0.7-1.2) mg/dl Est GFR ( Amer) Est GFR (Non-Af Amer) POC Glucose (mg/dL) 275 H 263 H (65-110) mg/dL Random Glucose (70-110) mg/dL Calcium (8.4-10.5) mg/dL Total Bilirubin (0.2-1.3) mg/dL AST (14-36) U/L ALT (7-56) U/L Alkaline Phosphatase (38-126) U/L Total Protein (5.8-8.3) g/dL Albumin (3.0-4.8) g/dL Globulin gm/dL Albumin/Globulin Ratio (1.1-1.8) 05/02/18 05/02/18 Range/Units 21:50 16:36 WBC (4.5-11.0) 10^3/uL RBC (3.5-6.1) 10^6/uL Hgb (12.0-16.0) g/dL Hct (36.0-48.0) % MCV (80.0-105.0) fl MCH (25.0-35.0) pg MCHC (31.0-37.0) g/dl RDW (11.5-14.5) % Plt Count (120.0-450.0) 10^3/uL MPV (7.0-11.0) fl Neut % (Auto) (50.0-68.0) % Lymph % (Auto) (22.0-35.0) % [place] % (Auto) (1.0-6.0) % Eos % (Auto) (1.5-5.0) % Baso % (Auto) (0.0-3.0) % Lymph # (Auto) (1.2-3.4) [place] # (Auto) (0.1-0.6) Eos # (Auto) (0.0-0.7) Baso # (Auto) (0.0-2.0) K/mm3 Absolute Neuts (auto) (1.4-6.5) pCO2 (35-45) mm/Hg pO2 (80-100) mm/Hg HCO3 (21-28) mmol/L ABG pH (7.35-7.45) ABG Total CO2 (22-28) mmol.L ABG O2 Saturation (95-98) % ABG O2 Content (15-23) ML/dl ABG Base Excess (-2.0-3.0) mmol/L ABG Hemoglobin (11.7-17.4) g/dL ABG Carboxyhemoglobin (0.5-1.5) % POC ABG HHb (Measured) (0-5) % ABG Methemoglobin (0.0-3.0) % ABG O2 Capacity (16-24) mL/dl Hgb O2 Saturation (95.0-98.0) % FiO2 % Sodium (132-148) mmol/L Potassium (3.6-5.0) mmol/L Chloride (98-107) mmol/L Carbon Dioxide (21-33) mmol/L Anion Gap (10-20) BUN (7-21) mg/dL Creatinine (0.7-1.2) mg/dl Est GFR ( Amer) Est GFR (Non-Af Amer) POC Glucose (mg/dL) 240 H 214 H (65-110) mg/dL Random Glucose (70-110) mg/dL Calcium (8.4-10.5) mg/dL Total Bilirubin (0.2-1.3) mg/dL AST (14-36) U/L ALT (7-56) U/L Alkaline Phosphatase (38-126) U/L Total Protein (5.8-8.3) g/dL Albumin (3.0-4.8) g/dL Globulin gm/dL Albumin/Globulin Ratio (1.1-1.8) Laboratory Results - last 24 hr 05/02/18 05/02/18 05/03/18 16:36 21:50 00:24 WBC RBC Hgb Hct MCV MCH MCHC RDW Plt Count MPV Neut % (Auto) Lymph % (Auto) [place] % (Auto) Eos % (Auto) Baso % (Auto) Lymph # (Auto) [place] # (Auto) Eos # (Auto) Baso # (Auto) Absolute Neuts (auto) pCO2 pO2 HCO3 ABG pH ABG Total CO2 ABG O2 Saturation ABG O2 Content ABG Base Excess ABG Hemoglobin ABG Carboxyhemoglobin POC ABG HHb (Measured) ABG Methemoglobin ABG O2 Capacity Hgb O2 Saturation FiO2 Sodium Potassium Chloride Carbon Dioxide Anion Gap BUN Creatinine Est GFR ( Amer) Est GFR (Non-Af Amer) POC Glucose (mg/dL) 214 H 240 H 263 H Random Glucose Calcium Total Bilirubin AST ALT Alkaline Phosphatase Total Protein Albumin Globulin Albumin/Globulin Ratio 05/03/18 05/03/18 05/03/18 05:58 06:14 07:15 WBC 27.4 H* D RBC 2.60 L Hgb 7.8 L Hct 23.8 L MCV 91.5 MCH 30.0 MCHC 32.8 RDW 15.0 H Plt Count 209 MPV 10.0 Neut % (Auto) 85.0 H Lymph % (Auto) 13.5 L [place] % (Auto) 1.5 Eos % (Auto) 0.0 L Baso % (Auto) 0.0 Lymph # (Auto) 3.7 H [place] # (Auto) 0.4 Eos # (Auto) 0.0 Baso # (Auto) 0.01 Absolute Neuts (auto) 23.29 H pCO2 42 pO2 120.0 H HCO3 23.2 ABG pH 7.35 ABG Total CO2 24.5 ABG O2 Saturation 99.7 H ABG O2 Content 9.4 L ABG Base Excess -2.2 L ABG Hemoglobin 6.7 L ABG Carboxyhemoglobin 2.0 H POC ABG HHb (Measured) 0.3 ABG Methemoglobin 0.4 ABG O2 Capacity 9.4 L Hgb O2 Saturation 97.3 FiO2 40.0 Sodium Potassium Chloride Carbon Dioxide Anion Gap BUN Creatinine Est GFR ( Amer) Est GFR (Non-Af Amer) POC Glucose (mg/dL) 275 H Random Glucose Calcium Total Bilirubin AST ALT Alkaline Phosphatase Total Protein Albumin Globulin Albumin/Globulin Ratio 05/03/18 05/03/18 07:15 11:54 WBC RBC Hgb Hct MCV MCH MCHC RDW Plt Count MPV Neut % (Auto) Lymph % (Auto) [place] % (Auto) Eos % (Auto) Baso % (Auto) Lymph # (Auto) [place] # (Auto) Eos # (Auto) Baso # (Auto) Absolute Neuts (auto) pCO2 pO2 HCO3 ABG pH ABG Total CO2 ABG O2 Saturation ABG O2 Content ABG Base Excess ABG Hemoglobin ABG Carboxyhemoglobin POC ABG HHb (Measured) ABG Methemoglobin ABG O2 Capacity Hgb O2 Saturation FiO2 Sodium 145 Potassium 3.3 L Chloride 115 H Carbon Dioxide 23 Anion Gap 11 BUN 73 H Creatinine 2.0 H Est GFR ( Amer) 28 Est GFR (Non-Af Amer) 24 POC Glucose (mg/dL) 367 H Random Glucose 182 H Calcium 7.7 L Total Bilirubin 0.2 AST 59 H D ALT 86 H Alkaline Phosphatase 97 Total Protein 5.2 L Albumin 2.5 L Globulin 2.7 Albumin/Globulin Ratio 0.9 L Radiology Impressions: Radiology Impressions Chest X-Ray 05/03/18 06:00 IMPRESSION: Interval removal right IJ central line Mild pulmonary venous congestive changes possibly chronic compensated CHF. Bibasilar atelectasis left greater than right. Suspect small bilateral effusions left larger than right. Critical Care Progress Note - Nutrition Nutrition: Nutrition Category Date Time Status Pureed [Dysphagia/Modified Consistency Diet] [DIET] Diets 05/02/18 Lunch Ordered Assessment/Plan - Assessment and Plan (Free Text) Plan: Patient seen and examined on rounds, with resident, with following additions/exceptions: Patient is 88yo female with PMhx of right ICA stenosis status post carotid endarterectomy, HTN, HLD, diabetes mellitus type II, Parkinson's disease admitted with shock, likely component of septic shock, distributive shock. Patient is currently afebrile, HD stable, OFF ALL Vasopressor support, in NAD. Septic Shock, resolved Currently no major complaints Passed speech swallow, started on diet TLC, Art line discontinued This morning patient became dyspneic, placed on BIPAP, given Lasix 40m IV, and stated Solumedrol (wheezing noted on exam) COPD exacerbation SOB Gram neg bacteremia Rule out cervical, gynocological neoplams NSTEMI Hx Smoking COPD Recommend: - Cont with BIPAP 12//40%, duonebs PRN, Pulmicort 0.25mg BID, IS, OOB to chair - start IV Solmedrol 60mg BID, Lasix 40mg IV BID - repeat BCx, adjust abx accordingly, follow up ID, abx as per ID - ECHO - ASA, Plavix, Statin - monitor I/Os, Cr - DC Solucortef - DC IVF - follow up renal - GI ppx - DVT ppx, HSQ - Monitor in MICU Critical care time 35 minutes
[2018-05-03] MEDS: Potassium Chloride 20 mEq ER Tab PO SCH ×2 (15:25→17:59)
--- NOTE | 2018-05-03 16:24 | PN ---
DATE: 05/03/2018 SUBJECTIVE: The patient was seen and examined at bedside in the intensive care unit. She is moderately short of breath and she is currently on BiPAP. The patient had few episodes of severe shortness of breath and was placed back on BiPAP, which helps her breathing. She is on multiple antibiotics including Azactam and Flagyl. SHE IS ALLERGIC TO PENICILLIN AND SULFA. She is also on nebulizer treatment with Brovana and budesonide. PHYSICAL EXAMINATION: GENERAL: She is in moderate respiratory distress. VITAL SIGNS: Her temperature is 99.3, pulse is 100, respirations 28, pulse oximetry is now 100 and blood pressure is 155/70. Her intake and output are even. HEAD: Normocephalic and atraumatic. NECK: Supple with no jugular vein distention. CARDIOVASCULAR: S1 and S2. No S3. Regular. PULMONARY: Bilateral coarse rhonchi and expiratory wheezes. GASTROINTESTINAL: Soft, nontender. No organomegaly. EXTREMITIES: No pedal edema. No cyanosis. SKIN: No acute skin rash. NEUROLOGIC: No focal deficits. LABORATORY DATA: Additional laboratory data reviewed. Her arterial blood gas this morning showed pH of 7.35, PCO2 of 42 and PO2 of 120. Her potassium is reduced at 3.3 and chloride elevated at 115. Her creatinine is 2. Her WBCs are 27,000 and hemoglobin is reduced at 7.8. I reviewed this morning's chest x-ray, which reveals mild bilateral congestive changes, but no acute infiltrates. ASSESSMENT: 1. Respiratory insufficiency, bilevel positive airway pressure dependant. 2. Status post respiratory failure. 3. Sepsis syndrome. 4. Leukocytosis. 5. Renal insufficiency. 6. Anemia. PLAN: The patient's condition remains extremely critical. She is BiPAP dependant with periods of more severe shortness of breath. Her chest x-ray does not reveal any discrete infiltrates or significant enough congestion to explain it. Sepsis syndrome is also suspected due to leukocytosis but this is too high for just administration of steroids. She is caldera cultured. Continue with current antibiotic administration. This was discussed with the ICU team. Jax Schulz MD
--- NOTE | 2018-05-03 20:15 | PN ---
SUBJECTIVE: The patient was seen and examined at bedside in the CCU. No acute events overnight. She remains afebrile, hemodynamically stable and is doing well s/p extubation. This morning she is awake and alert, states she feels okay and offers no complaints. PHYSICAL EXAMINATION: VITAL SIGNS: Temperature 98.4, pulse 100, blood pressure 155/70, respiratory rate 22, oxygen saturation 96% on BiPAP. GENERAL: Frail elderly woman appearing her stated age, sitting up in bed in no apparent distress. HEENT: PERRL, EOMI. No scleral icterus. Conjunctival pallor is noted. NECK: No JVD. LUNGS: Scattered wheeze with rhonchi. CARDIOVASCULAR: Tachycardic. Normal S1, S2. Grade II/ KERMIT to LLSB. ABDOMEN: Normoactive bowel sounds, soft, nondistended, tender to palpation at the lower abdomen with voluntary guarding. EXTREMITIES: No edema. Left ankle with River wrapping in place. NEUROLOGIC: Awake and alert. Moving all extremities. LABORATORY DATA: WBC 27.4 with 85% neutrophils, hemoglobin 7.8, hematocrit 24, platelets 209. Sodium 145, potassium 3.3, chloride 115, bicarb 23, BUN 73, creatinine 2, glucose 182. AST 59, ALT 86. Urine culture with Escherichia coli and sensitivities noted. Blood culture with bacteroides species and sensitivities pending. ASSESSMENT: The patient is an 88-year-old woman with a past medical history of Parkinson disease with recurrent falls who was initially admitted to the general [facility] s/p mechanical fall with resultant left ankle fracture whose hospital course was complicated by NSTEMI with PEA arrest and who was subsequently transferred to the CCU for continued care. PLAN: 1. S/p PEA arrest. The patient remains extubated, off vasopressor support and demonstrating gradual clinical improvement. Continue with care as per CCU team. 2. Acute hypoxic respiratory failure s/p extubation. Input from Dr. Aguilar noted. Continue with care as per CCU team. 3. NSTEMI. Input from Dr. Page noted. Continue with Aspirin 81 mg p.o. daily, Plavix 75 mg p.o. daily and Lipitor 40 mg p.o. daily. The patient will likely require cardiac catheterization when medically stabilized. 4. Acute systolic heart failure, resolved. The patient remains off ionotropic and vasopressor support. Continue with care as per Dr. Page. 5. Septic shock, likely secondary to intra-abdominal source, improving. Input from Dr. Becker noted. Continue with antimicrobials as per Dr. Becker. 6. 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 Input from Dr. Fregoso noted. MRI of the abdomen and pelvis pending for further evaluation. 7. LILIAN, etiology likely secondary to ATN, improving. Input from Dr. Madera noted. Continue with gentle IV fluid hydration, monitoring strict I&O's. renally dosing medications and avoid nephrotoxins. 8. Transaminitis, etiology likely secondary to shock liver in the setting of PEA arrest, resolving. 9. Acute fracture of the distal left fibula. Input from Dr. Hendrix noted and no need for acute surgical intervention. 10. Non-insulin dependent diabetes mellitus. Continue with insulin sliding scale for coverage. 11. Parkinson disease. Continues Stalevo 150 mg p.o. t.i.d. 12. Anemia of chronic disease. Continue to monitor CBC and transfuse as needed. 13. Hypertension. Antihypertensives remain on hold. Continue to monitor hemodynamics and adjust antihypertensives as needed. 14. History of gastric cancer s/p subtotal gastrectomy. 15. History of chronic lymphocytic leukemia. 16. Prophylaxis. Continue Protonix for GI prophylaxis. Continue with Heparin for DVT prophylaxis. CODE STATUS: Full code. Antonio Devi MD [facility]DR[facility]
--- NOTE | 2018-05-03 20:47 | PN ---
DATE: 05/03/2018 SUBJECTIVE: The patient is in bed, in no acute distress, nontoxic. The patient is seen earlier today. The patient had nasal cannula. PHYSICAL EXAMINATION: VITAL SIGNS: Temperature is 99, blood pressure is 150/70, respiratory rate 28, heart rate of 119. HEENT: Unremarkable. NECK: Supple. LUNGS: Have decreased breath sounds. HEART: Normal S1 and S2. ABDOMEN: Soft, nontender. LABORATORY EXAMINATION: Reveals a white count of 27,000, hemoglobin of 7, BUN of 73, creatinine of 2. Procalcitonin is 27. Urinalysis is noted. Serology is reviewed. Influenza is negative. Microbiology reveals blood cultures with Bacteroides species. Repeat blood cultures with Bacteroides species. Urine culture with E. coli. Chest x-ray is noted. note is reviewed. CAT scan is reviewed. ASSESSMENT AND PLAN: This is an 88-year-old female with severe sepsis, status post ventilatory respiratory failure, status post cardiac arrest secondary to Bacteroides bacteremia, intra-abdominopelvic collection with gas in the uterus. Repeat cultures are positive for Bacteroides bacteremia. On aztreonam which requires renewal, which I will do so. On Flagyl which is active. The patient is on Solu-Medrol. MRI is ordered. Dr. Antonio Devi's note from yesterday is reviewed. The patient is at high risk for any procedure. Dr. Zane Guevara is to be called for uterine neoplasm. We will follow closely with you. The patient most likely has a gastrointestinal leak and/or abscess collection. We will discuss with the intensive care unit team. Fabrizio Hewitt MD
[2018-05-04] MEDS ORDERED: Levalbuterol 0.63 MG/3 ML Inhal Soln UD IH STA (00:16)
[2018-05-04] MEDS: Insulin Lispro (HUMAlog) HIGH Coverage SC SCH ×4 (00:30→19:36)
[2018-05-04 01:16] LABS: CALCIUM 8.2 mg/dL (8.4-10.5)
[2018-05-04] MEDS: Albuterol-Ipratrop 3 mg / 0.5 (3 ml) UD IH PRN ×2 (02:01→21:15)
[2018-05-04 02:06] LABS: TROPONIN I 2.44 ng/mL
[2018-05-04] MEDS ORDERED: Morphine 2 mg/ml ISec IVP STA (02:26)
[2018-05-04] MEDS: metroNIDAZOLE IV 500 mg/100 ml 500 MG/100 ML BAG IVPB SCH ×3 (06:04→22:53)
[2018-05-04] MEDS: Aztreonam 1 Gm in NS 100mL 100 ML IVPB SCH ×3 (06:05→22:53)
[2018-05-04 07:09] LABS: ARTERIAL BLOOD GAS HCO3 20.2 mmol/L (21-28); ARTERIAL BLOOD GAS O2 CAPACITY 17.8 mL/dl (16-24); ARTERIAL BLOOD GAS O2 SAT 95.5 % (95-98); ARTERIAL BLOOD GAS PCO2 41 mm/Hg (35-45); ARTERIAL BLOOD GAS TCO2 21.5 mmol.L (22-28)
[2018-05-04] MEDS: Arformoterol 15 mcg/2 ml Inh Sol IH SCH ×2 (07:14→20:15)
[2018-05-04] MEDS: Budesonide 0.5 mg/2 ml Inhal Susp UD IH SCH ×2 (07:14→20:15)
[2018-05-04 07:32] LABS: BASO # 0.02 K/mm3 (0.0-2.0); BASO % 0.1 % (0.0-3.0); HEMOGLOBIN 8.4 g/dL (12.0-16.0); LYMPH # 4.2 (1.2-3.4); LYMPH % 13.7 % (22.0-35.0); MEAN CELL VOLUME 93.2 fl (80.0-105.0); MEAN CORPUSCULAR HEMOGLOBIN 29.9 pg (25.0-35.0); MEAN CORPUSCULAR HGB CONC 32.1 g/dl (31.0-37.0); MEAN PLATELET VOLUME 10.4 fl (7.0-11.0); MONO # 0.5 (0.1-0.6); MONO % 1.5 % (1.0-6.0); PLATELET COUNT 261 10^3/uL (120.0-450.0); RBC 2.81 10^6/uL (3.5-6.1); RED CELL DISTRIBUTION WIDTH 15.2 % (11.5-14.5)
[2018-05-04 07:42] LABS: WHITE BLOOD COUNT 30.8 10^3/uL (4.5-11.0)
[2018-05-04 08:04] LABS: ALB/GLOB RATIO 0.9 (1.1-1.8); ALBUMIN 2.6 g/dL (3.0-4.8); CALCIUM 7.8 mg/dL (8.4-10.5)
[2018-05-04 08:17] LABS: LYMPHOCYTE 12 % (22.0-35.0); NEUTROPHIL 88 % (50.0-70.0); NUCLEATED RED BLOOD CELL 2 %
[2018-05-04 08:20] LABS: ANISOCYTOSIS SLIGHT; PLATELET CLUMPS PRESENT
[2018-05-04] MEDS ORDERED: Milrinone 20mg/100ml D5W 100 ML IV PRN ×3 (08:29→08:48)
[2018-05-04] MEDS ORDERED: NOREPINEPHRINE BIT/0.9 % NACL 4 MG/250 ML BAG IV ONE (09:01)
[2018-05-04] MEDS ORDERED: Propofol 10 mg/ml Inj (20 ML) ONE (09:05)
[2018-05-04] MEDS ORDERED: Propofol 10 mg/ml 1,000 MG/100 ML VIAL ONE (09:05)
[2018-05-04] MEDS ORDERED: Vancomycin 2 GM in Sodium Chloride 0.9% 500 ML IVPB ONE ×2 (09:33→14:34)
--- NOTE | 2018-05-04 09:39 | CP.CCUPN ---
<Sandee Huang - Last Filed: 05/04/18 11:47> CCU Subjective - Physician Review Subjective (Free Text): Sandee Huang, PGY-1, ICU Progress Note for Dr. Connell Patient seen and evaluated at bedside. Patient was in respiratory distress and agitated overnight. Patient was given ativan, lasix, xopenex, and morphine with improvement of symptoms. This morning, patient was once again in respiratory distress. Patient became hypotensive and patient was subsequently intubated. Patient was sedated with propofol prior to intubation. Code heart was called for patient. 12-point ROS was unattainable due to intubation status. CCU Objective - Vital Signs / Intake & Output Vital Signs (Last 4 hours): Vital Signs Pulse Resp BP Pulse Ox 05/04/18 08:45 97 H 125/50 L 05/04/18 08:31 127/50 L 05/04/18 06:00 101 H 35 H 111/54 L 96 05/04/18 05:55 103 H Intake and Output (Last 8hrs): Intake & Output 05/03/18 05/04/18 05/04/18 22:59 06:59 14:59 Intake Total 790 450 Output Total 800 800 Balance -10 -350 Intake: IV 240 450 antibiotics 200 400 maintenance 40 50 Oral 550 Output: Urine 800 800 Urethral (Masters) 800 800 Stool 0 0 - Physical Exam Physical Exam Limitations: Positive for: Other (intubated) Head: Positive for: Atraumatic, Normocephalic Pupils: Positive for: PERRL Extroacular Muscles: Positive for: EOMI Mouth: Positive for: Dry Neck: Positive for: Normal Range of Motion Respiratory/Chest: Positive for: Wheezes. Negative for: Respiratory Distress, Accessory Muscle Use Cardiovascular: Positive for: Regular Rate and Rhythm, Normal S1, S2. Negative for: Murmurs Abdomen: Negative for: Tenderness, Distention, Peritoneal Signs Upper Extremity: Positive for: NORMAL PULSES, Other (severe edema of right hand). Negative for: Cyanosis, Edema, Normal ROM (more movement of left upper extremity than right upper extremity), Tenderness, Swelling Lower Extremity: Positive for: Edema (left ankle), NORMAL PULSES, Tenderness (left ankle), Swelling (left ankle), Neurovascularly Intact, Capillary Refill < 2 s. Negative for: CALF TENDERNESS, Normal ROM (decreased ROM d/t swelling at left nakle normal ROm in all other lowere extremity joints) Neurological: Positive for: CN II-XII Intact Skin: Positive for: Warm, Dry, Other (multiple ecchymoses) Psychiatric: Positive for: Other (intubated). Negative for: Normal Insight - Medications Active Medications: Active Medications Generic Name Dose Route Start Last Admin Trade Name Freq PRN Reason Stop Dose Admin Acetaminophen 650 mg 04/28/18 00:59 04/28/18 01:29 Tylenol 325mg Tab PO 650 mg Q6H PRN Administration Fever >100.4 F Albuterol/Ipratropium 3 ml 05/02/18 07:13 05/04/18 02:01 Duoneb 3 Mg/0.5 Mg (3 Ml) Ud IH 3 ml [id number] PRN Administration Shortness of Breath Arformoterol Tartrate 15 mcg 05/01/18 20:00 05/04/18 07:14 Brovana IH 15 mcg [id number] STEVEN Administration Aspirin 81 mg 04/27/18 10:00 05/03/18 09:24 Aspirin Chewable PO 81 mg DAILY STEVEN Administration Atorvastatin Calcium 40 mg 05/02/18 17:00 05/03/18 17:59 Lipitor PO 40 mg DIN STEVEN Administration Budesonide 0.5 mg 05/01/18 20:00 05/04/18 07:14 Pulmicort Respules IH 0.5 mg [id number] STEVEN Administration Carbidopa/Levodopa/Entacapone 1 tab 04/27/18 10:00 05/03/18 17:59 Stalevo 150 PO 1 tab TID STEVEN Administration Clopidogrel Bisulfate 75 mg 04/29/18 10:00 05/03/18 09:25 Plavix PO 75 mg DAILY STEVEN Administration Dextrose 0 ml 04/29/18 12:32 Dextrose 50% Inj IV STAT PRN Hypoglycemia Protocol Protocol Docusate Sodium 100 mg 04/27/18 10:00 05/03/18 18:16 Colace PO 100 mg BID STEVEN Administration Furosemide 40 mg 05/03/18 09:30 05/04/18 08:31 Lasix IVP 40 mg Q12H STEVEN Administration Heparin Sodium (Porcine) 5,000 units 05/01/18 22:00 05/04/18 06:05 Heparin SC 5,000 units Q8 STEVEN Administration Protocol Aztreonam 100 mls @ 100 mls/hr 04/29/18 09:45 05/04/18 06:05 Azactam 1 Gm IVPB 05/06/18 09:46 100 mls/hr Q8 STEVEN Administration Protocol Dextrose 1,000 mls @ 0 mls/hr 04/29/18 12:32 Dextrose 5% In Water 1000 Ml IV .Q0M PRN Hypoglycemia Protocol Protocol Per Protocol Metronidazole 500 mg in 100 mls @ 100 mls/hr 05/02/18 14:00 05/04/18 06:04 Flagyl IVPB 100 mls/hr Q8 STEVEN Administration Protocol Milrinone Lactate/Dextrose 100 mls @ 3.837 mls/hr 05/04/18 08:48 Primacor 20mg/100ml D5w IV .Q24H PRN TITRATE PER MD ORDER Protocol 0.2 MCG/KG/MIN Vancomycin HCl 2 gm/ Sodium 500 mls @ 170 mls/hr 05/04/18 09:33 Chloride IVPB 05/04/18 12:29 ONCE ONE Protocol Insulin Human Lispro 0 units 04/30/18 18:00 05/04/18 06:00 Humalog High SC Not Given Q6 [facility] Protocol Lisinopril 10 mg 04/27/18 10:00 04/29/18 10:25 Zestril PO Not Given DAILY [facility] Methylprednisolone 40 mg 05/04/18 08:14 Solu-Medrol IVP Q12 [facility] Metoprolol Tartrate 25 mg 04/28/18 08:32 05/03/18 17:59 Lopressor PO 25 mg BID STEVEN Administration Nicotine 1 patch 05/02/18 10:00 05/03/18 09:23 Nicoderm Cq TD 1 patch DAILY STEVEN Administration Pantoprazole Sodium 40 mg 04/29/18 10:00 05/03/18 09:23 Protonix Inj IVP 40 mg DAILY STEVEN Administration Zolpidem Tartrate 5 mg 04/28/18 20:25 04/28/18 22:12 Ambien PO 5 mg HS PRN Administration Insomnia Protocol - Patient Studies Lab Studies: Microbiology Studies 05/03/18 07:30 Blood Culture - Preliminary Blood-Venous NO GROWTH AFTER 24 HOURS 05/03/18 07:15 Blood Culture - Preliminary Blood-Venous NO GROWTH AFTER 24 HOURS 05/01/18 11:10 Blood Culture - Final Blood-Venous Bacteroides Species Gram Stain - Final 05/01/18 11:10 Blood Culture - Final Blood-Venous Bacteroides Species Gram Stain - Final Lab Studies 05/04/18 05/04/18 05/04/18 Range/Units 07:00 07:00 07:00 WBC 30.8 H* (4.5-11.0) 10^3/uL RBC 2.81 L (3.5-6.1) 10^6/uL Hgb 8.4 L (12.0-16.0) g/dL Hct 26.2 L (36.0-48.0) % MCV 93.2 (80.0-105.0) fl MCH 29.9 (25.0-35.0) pg MCHC 32.1 (31.0-37.0) g/dl RDW 15.2 H (11.5-14.5) % Plt Count 261 (120.0-450.0) 10^3/uL MPV 10.4 (7.0-11.0) fl Neut % (Auto) 84.7 H (50.0-68.0) % Lymph % (Auto) 13.7 L (22.0-35.0) % Tama % (Auto) 1.5 (1.0-6.0) % Eos % (Auto) 0.0 L (1.5-5.0) % Baso % (Auto) 0.1 (0.0-3.0) % Lymph # (Auto) 4.2 H (1.2-3.4) Tama # (Auto) 0.5 (0.1-0.6) Eos # (Auto) 0.0 (0.0-0.7) Baso # (Auto) 0.02 (0.0-2.0) K/mm3 Absolute Neuts (auto) 26.15 H (1.4-6.5) Neutrophils % (Manual) 88 H (50.0-70.0) % Lymphocytes % (Manual) 12 L (22.0-35.0) % Monocytes % (Manual) TEST NOT PERFORMED Nucleated RBC % 2 % Plt Clumps, EDTA Present Anisocytosis (manual) Slight pCO2 41 (35-45) mm/Hg pO2 70.0 L (80-100) mm/Hg HCO3 20.2 L (21-28) mmol/L ABG pH 7.30 L (7.35-7.45) ABG Total CO2 21.5 L (22-28) mmol.L ABG O2 Saturation 95.5 (95-98) % ABG O2 Content 17.0 (15-23) ML/dl ABG Base Excess -5.9 L (-2.0-3.0) mmol/L ABG Hemoglobin 13.0 (11.7-17.4) g/dL ABG Carboxyhemoglobin 1.9 H (0.5-1.5) % POC ABG HHb (Measured) 4.4 (0-5) % ABG Methemoglobin 0.9 (0.0-3.0) % ABG O2 Capacity 17.8 (16-24) mL/dl Hgb O2 Saturation 92.7 L (95.0-98.0) % FiO2 35.0 % Sodium 151 H (132-148) mmol/L Potassium 4.5 (3.6-5.0) mmol/L Chloride 119 H (98-107) mmol/L Carbon Dioxide 21 (21-33) mmol/L Anion Gap 16 (10-20) BUN 83 H (7-21) mg/dL Creatinine 2.1 H (0.7-1.2) mg/dl Est GFR ( Amer) 27 Est GFR (Non-Af Amer) 22 POC Glucose (mg/dL) (65-110) mg/dL Random Glucose 209 H (70-110) mg/dL Calcium 7.8 L (8.4-10.5) mg/dL Total Bilirubin 0.4 (0.2-1.3) mg/dL AST 38 H D (14-36) U/L ALT 26 (7-56) U/L Alkaline Phosphatase 130 H D (38-126) U/L Troponin I ng/mL NT-Pro-B Natriuret Pep (0-450) pg/mL Total Protein 5.4 L (5.8-8.3) g/dL Albumin 2.6 L (3.0-4.8) g/dL Globulin 2.8 gm/dL Albumin/Globulin Ratio 0.9 L (1.1-1.8) 02/04/19 02/04/19 02/04/19 Range/Units 05:36 00:43 00:30 WBC (4.5-11.0) 10^3/uL RBC (3.5-6.1) 10^6/uL Hgb (12.0-16.0) g/dL Hct (36.0-48.0) % MCV (80.0-105.0) fl MCH (25.0-35.0) pg MCHC (31.0-37.0) g/dl RDW (11.5-14.5) % Plt Count (120.0-450.0) 10^3/uL MPV (7.0-11.0) fl Neut % (Auto) (50.0-68.0) % Lymph % (Auto) (22.0-35.0) % Tama % (Auto) (1.0-6.0) % Eos % (Auto) (1.5-5.0) % Baso % (Auto) (0.0-3.0) % Lymph # (Auto) (1.2-3.4) Tama # (Auto) (0.1-0.6) Eos # (Auto) (0.0-0.7) Baso # (Auto) (0.0-2.0) K/mm3 Absolute Neuts (auto) (1.4-6.5) Neutrophils % (Manual) (50.0-70.0) % Lymphocytes % (Manual) (22.0-35.0) % Monocytes % (Manual) Nucleated RBC % % Plt Clumps, EDTA Anisocytosis (manual) pCO2 (35-45) mm/Hg pO2 (80-100) mm/Hg HCO3 (21-28) mmol/L ABG pH (7.35-7.45) ABG Total CO2 (22-28) mmol.L ABG O2 Saturation (95-98) % ABG O2 Content (15-23) ML/dl ABG Base Excess (-2.0-3.0) mmol/L ABG Hemoglobin (11.7-17.4) g/dL ABG Carboxyhemoglobin (0.5-1.5) % POC ABG HHb (Measured) (0-5) % ABG Methemoglobin (0.0-3.0) % ABG O2 Capacity (16-24) mL/dl Hgb O2 Saturation (95.0-98.0) % FiO2 % Sodium 150 H (132-148) mmol/L Potassium 3.8 (3.6-5.0) mmol/L Chloride 118 H (98-107) mmol/L Carbon Dioxide 22 (21-33) mmol/L Anion Gap 14 (10-20) BUN 78 H (7-21) mg/dL Creatinine 2.1 H (0.7-1.2) mg/dl Est GFR ( Amer) 27 Est GFR (Non-Af Amer) 22 POC Glucose (mg/dL) 296 H 224 H (65-110) mg/dL Random Glucose 134 H (70-110) mg/dL Calcium 8.2 L (8.4-10.5) mg/dL Total Bilirubin (0.2-1.3) mg/dL AST (14-36) U/L ALT (7-56) U/L Alkaline Phosphatase (38-126) U/L Troponin I 2.44 H* D ng/mL NT-Pro-B Natriuret Pep [id number] H (0-450) pg/mL Total Protein (5.8-8.3) g/dL Albumin (3.0-4.8) g/dL Globulin gm/dL Albumin/Globulin Ratio (1.1-1.8) 05/03/18 05/03/18 Range/Units 17:28 11:54 WBC (4.5-11.0) 10^3/uL RBC (3.5-6.1) 10^6/uL Hgb (12.0-16.0) g/dL Hct (36.0-48.0) % MCV (80.0-105.0) fl MCH (25.0-35.0) pg MCHC (31.0-37.0) g/dl RDW (11.5-14.5) % Plt Count (120.0-450.0) 10^3/uL MPV (7.0-11.0) fl Neut % (Auto) (50.0-68.0) % Lymph % (Auto) (22.0-35.0) % Tama % (Auto) (1.0-6.0) % Eos % (Auto) (1.5-5.0) % Baso % (Auto) (0.0-3.0) % Lymph # (Auto) (1.2-3.4) Tama # (Auto) (0.1-0.6) Eos # (Auto) (0.0-0.7) Baso # (Auto) (0.0-2.0) K/mm3 Absolute Neuts (auto) (1.4-6.5) Neutrophils % (Manual) (50.0-70.0) % Lymphocytes % (Manual) (22.0-35.0) % Monocytes % (Manual) Nucleated RBC % % Plt Clumps, EDTA Anisocytosis (manual) pCO2 (35-45) mm/Hg pO2 (80-100) mm/Hg HCO3 (21-28) mmol/L ABG pH (7.35-7.45) ABG Total CO2 (22-28) mmol.L ABG O2 Saturation (95-98) % ABG O2 Content (15-23) ML/dl ABG Base Excess (-2.0-3.0) mmol/L ABG Hemoglobin (11.7-17.4) g/dL ABG Carboxyhemoglobin (0.5-1.5) % POC ABG HHb (Measured) (0-5) % ABG Methemoglobin (0.0-3.0) % ABG O2 Capacity (16-24) mL/dl Hgb O2 Saturation (95.0-98.0) % FiO2 % Sodium (132-148) mmol/L Potassium (3.6-5.0) mmol/L Chloride (98-107) mmol/L Carbon Dioxide (21-33) mmol/L Anion Gap (10-20) BUN (7-21) mg/dL Creatinine (0.7-1.2) mg/dl Est GFR ( Amer) Est GFR (Non-Af Amer) POC Glucose (mg/dL) 456 H* 367 H (65-110) mg/dL Random Glucose (70-110) mg/dL Calcium (8.4-10.5) mg/dL Total Bilirubin (0.2-1.3) mg/dL AST (14-36) U/L ALT (7-56) U/L Alkaline Phosphatase (38-126) U/L Troponin I ng/mL NT-Pro-B Natriuret Pep (0-450) pg/mL Total Protein (5.8-8.3) g/dL Albumin (3.0-4.8) g/dL Globulin gm/dL Albumin/Globulin Ratio (1.1-1.8) Laboratory Results - last 24 hr 05/03/18 05/03/18 05/04/18 11:54 17:28 00:30 WBC RBC Hgb Hct MCV MCH MCHC RDW Plt Count MPV Neut % (Auto) Lymph % (Auto) Tama % (Auto) Eos % (Auto) Baso % (Auto) Lymph # (Auto) Tama # (Auto) Eos # (Auto) Baso # (Auto) Absolute Neuts (auto) Neutrophils % (Manual) Lymphocytes % (Manual) Monocytes % (Manual) Nucleated RBC % Plt Clumps, EDTA Anisocytosis (manual) pCO2 pO2 HCO3 ABG pH ABG Total CO2 ABG O2 Saturation ABG O2 Content ABG Base Excess ABG Hemoglobin ABG Carboxyhemoglobin POC ABG HHb (Measured) ABG Methemoglobin ABG O2 Capacity Hgb O2 Saturation FiO2 Sodium 150 H Potassium 3.8 Chloride 118 H Carbon Dioxide 22 Anion Gap 14 BUN 78 H Creatinine 2.1 H Est GFR ( Amer) 27 Est GFR (Non-Af Amer) 22 POC Glucose (mg/dL) 367 H 456 H* Random Glucose 134 H Calcium 8.2 L Total Bilirubin AST ALT Alkaline Phosphatase Troponin I 2.44 H* D NT-Pro-B Natriuret Pep [id number] H Total Protein Albumin Globulin Albumin/Globulin Ratio 05/04/18 05/04/18 05/04/18 00:43 05:36 07:00 WBC 30.8 H* RBC 2.81 L Hgb 8.4 L Hct 26.2 L MCV 93.2 MCH 29.9 MCHC 32.1 RDW 15.2 H Plt Count 261 MPV 10.4 Neut % (Auto) 84.7 H Lymph % (Auto) 13.7 L Tama % (Auto) 1.5 Eos % (Auto) 0.0 L Baso % (Auto) 0.1 Lymph # (Auto) 4.2 H Tama # (Auto) 0.5 Eos # (Auto) 0.0 Baso # (Auto) 0.02 Absolute Neuts (auto) 26.15 H Neutrophils % (Manual) 88 H Lymphocytes % (Manual) 12 L Monocytes % (Manual) TEST NOT PERFORMED Nucleated RBC % 2 Plt Clumps, EDTA Present Anisocytosis (manual) Slight pCO2 pO2 HCO3 ABG pH ABG Total CO2 ABG O2 Saturation ABG O2 Content ABG Base Excess ABG Hemoglobin ABG Carboxyhemoglobin POC ABG HHb (Measured) ABG Methemoglobin ABG O2 Capacity Hgb O2 Saturation FiO2 Sodium Potassium Chloride Carbon Dioxide Anion Gap BUN Creatinine Est GFR ( Amer) Est GFR (Non-Af Amer) POC Glucose (mg/dL) 224 H 296 H Random Glucose Calcium Total Bilirubin AST ALT Alkaline Phosphatase Troponin I NT-Pro-B Natriuret Pep Total Protein Albumin Globulin Albumin/Globulin Ratio 05/04/18 05/04/18 07:00 07:00 WBC RBC Hgb Hct MCV MCH MCHC RDW Plt Count MPV Neut % (Auto) Lymph % (Auto) Tama % (Auto) Eos % (Auto) Baso % (Auto) Lymph # (Auto) Tama # (Auto) Eos # (Auto) Baso # (Auto) Absolute Neuts (auto) Neutrophils % (Manual) Lymphocytes % (Manual) Monocytes % (Manual) Nucleated RBC % Plt Clumps, EDTA Anisocytosis (manual) pCO2 41 pO2 70.0 L HCO3 20.2 L ABG pH 7.30 L ABG Total CO2 21.5 L ABG O2 Saturation 95.5 ABG O2 Content 17.0 ABG Base Excess -5.9 L ABG Hemoglobin 13.0 ABG Carboxyhemoglobin 1.9 H POC ABG HHb (Measured) 4.4 ABG Methemoglobin 0.9 ABG O2 Capacity 17.8 Hgb O2 Saturation 92.7 L FiO2 35.0 Sodium 151 H Potassium 4.5 Chloride 119 H Carbon Dioxide 21 Anion Gap 16 BUN 83 H Creatinine 2.1 H Est GFR ( Amer) 27 Est GFR (Non-Af Amer) 22 POC Glucose (mg/dL) Random Glucose 209 H Calcium 7.8 L Total Bilirubin 0.4 AST 38 H D ALT 26 Alkaline Phosphatase 130 H D Troponin I NT-Pro-B Natriuret Pep Total Protein 5.4 L Albumin 2.6 L Globulin 2.8 Albumin/Globulin Ratio 0.9 L Radiology Impressions: Radiology Impressions Chest X-Ray 05/03/18 06:00 IMPRESSION: Interval removal right IJ central line Mild pulmonary venous congestive changes possibly chronic compensated CHF. Bibasilar atelectasis left greater than right. Suspect small bilateral effusions left larger than right. EKG/Cardiology Studies: Cardiology / EKG Studies 05/04/18 00:24 EKG [ELECTROCARDIOGRAM] Stat Comment: Reason For Exam: r/o NH Fingerstick Blood Sugar Results: 296 Review of Systems - Review of Systems Systems not reviewed;Unavailable: Intubated Critical Care Progress Note - Ventilator Checklist Head of Bed 30 Degrees: Yes PUD Prophalyxis: Yes DVT Prophylaxis: Yes - Vent Settings MODE:: PRVC TIDAL VOLUME:: 400 RESP RATE:: 14 FIO2:: 100 PEEP:: 5 - Nutrition Nutrition: Nutrition Category Date Time Status Pureed [Dysphagia/Modified Consistency Diet] [DIET] Diets 05/02/18 Lunch Ordered Assessment/Plan - Assessment and Plan (Free Text) Assessment: 88 year old female with past medical history of right ICA stenosis status post carotid endarterectomy, hypertension, hyperlipidemia, diabetes mellitus type II, Parkinson's disease was diagnosed with multisystem organ failure 2/2 to hypoperfusion from distributive shock. Patient was extubated last week but went into respiratory distress today. Patient was not able to protect her airway and was subsequently intubated. Code heart was called on the patient to evaluate for possible reinfarct. 1 left circumflex, 1 LAD stent were placed. Both stents were bare metal. Plan: Neuro: -Intubated and sedated to propofol -Head CT from 04/30 showed no acute intracranial hemorrhage Parkinson's disease -Continue with levodopa/carbidopa Cardio: NSTEMI -Continue with aspirin, plavix. Lopressor held due to hypotension. -Patient likely had reinfarct. Code heart was called. Patient for cardiac catherization today. -1 bare metal left circumflex stent, 1 bare metal LAD stent were placed -Maintain MAP>65. -Monitor for S/S, HD compromise. -Follow recommendations as per Cardiology, Dr. Page Hypotension -Patient hypotensive today with SBP in the 70s -Patient given 1 L of NS -Patient started on levophed drip and SBP improved to the 110s. Elevated BNP likely 2/2 to decompensated CHF -Milrinone 0.2 mcg/kg/min started for suspected CHF -Lasix 40 mg IV BID -Beta christian held due to hypotension. Pulm: Cardiogenic Pulmonary Edema -Patient ABG does not show hypoxia but due to decreased pH, patient has inappropriate compensation of pCO2. -Patient in respiratory failure and required intubation for protection of airway -Vent settings: 400/14/5/100% -Follow up repeat ABG -CXR confirmed placement of ET tube. -Patient has bilateral effusions on CXR. -Daily sedation vacation and weaning trials -Conservative fluid management -Maintain oral hygiene -Head of bed to 30 degrees -Daily CXR and ABG -Daily weight, I and Os COPD -Continue Duonebs Q6 -Continue brovana 15 mcg Q12 and pulmicort 0.5 mg Q12 -Patient's solucortef decreased to 40 mg Q12 Nicotine Dependence -Nicotine patch continued GI: Acute Liver Injury -Improved AST/ALT -Abdominal CT 05/01: large collection of fluid and gas in uterus measuring 9.7 cm. Concern for cervical/endometrial stenosis for neoplasm. Cholelithiasis without cholecystitis. Diet -NPO GI prophylaxis -Protonix 40 mg IV daily /Nephro: Acute tubular necrosis -MODS with ischemic injury to kidney leading to ATN. -BUN/Cr improved at 83/2.1. Creatinine was 2.0 yesterday. Baseline is 1.0 -Avoid nephrotoxins such as lisinopril and losartan. -UCx shows pansensitive E. Coli. Repeat UCx was negative. -1 L NS given this morning -Good urine output. Masters intact -Continue monitoring. -Replete electrolytes as needed. -Maintain euvolemia. Endocrinology: Diabetes Mellitus type II -Random glucose: 209 -High sliding scale insulin -Maintain euglycemia. Heme/Onc: -Abdominal CT: large collection of fluid and gas in uterus measuring 9.7 cm. Concern for cervical/endometrial stenosis for neoplasm. Normocytic Anemia -H/H stable at 8.4/26.2 from Hgb of 7.8 yesterday. -No signs of HD compromise. -Continue monitoring H/H DVT prophylaxis -Heparin 5000 U Q8 ID: Sepsis 2/2 to UTI vs. Gastrointestinal Pathology -Afebrile, leukocytosis worsened at 30.8 from 27.4 -Abdominal CT: large collection of fluid and gas in uterus measuring 9.7 cm. Concern for cervical/endometrial stenosis for neoplasm. -Blood culture: positive for Bacteriodes -UCx: pansensitive E. Coli. Repeat UCx was negative. -Procalcitonin: 27.27 from 0.69 -Lactate: trending down to 1.4 -Continue with aztreonam day 7 and flagyl day 3. 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 Concern for cervical/endometrial stenosis for neoplasm. 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 -Follow up Abdominal and Pelvis MRI for further evaluation Patient seen and examined with Dr. Connell. - Date & Time Date: 05/04/18 Time: 09:46 <Yonny Connell - Last Filed: 05/04/18 15:00> CCU Objective - Vital Signs / Intake & Output Vital Signs (Last 4 hours): Vital Signs Pulse Resp BP Pulse Ox 05/04/18 13:21 22 L 75/38 L 05/04/18 13:06 23 82/34 L 05/04/18 13:00 87 85/32 L 05/04/18 12:51 22 82/35 L 05/04/18 12:45 96 H 104/35 L 05/04/18 12:37 103 H 135/50 L 98 05/04/18 12:36 81 23 84/32 L 05/04/18 12:30 107 H 94/35 L 95 05/04/18 12:26 109 H 67/43 L 96 05/04/18 12:21 103 H 18 67/30 L 95 05/04/18 12:15 106 H 70/36 L 97 05/04/18 12:12 110 H 83/32 L 96 05/04/18 12:06 85 14 84/30 L 05/04/18 12:00 108 H 97 05/04/18 11:51 85 05/04/18 11:46 97 05/04/18 11:45 97 05/04/18 11:44 96 05/04/18 11:43 96 05/04/18 11:42 98 05/04/18 11:36 86 14 85/32 L Intake and Output (Last 8hrs): Intake & Output 05/04/18 05/04/18 05/04/18 06:59 14:59 22:59 Intake Total 450 Output Total 800 Balance -350 Intake: IV 450 antibiotics 400 maintenance 50 Output: Urine 800 Urethral (Masters) 800 Stool 0 - Medications Active Medications: Active Medications Generic Name Dose Route Start Last Admin Trade Name Freq PRN Reason Stop Dose Admin Acetaminophen 650 mg 04/28/18 00:59 04/28/18 01:29 Tylenol 325mg Tab PO 650 mg Q6H PRN Administration Fever >100.4 F Albuterol/Ipratropium 3 ml 05/02/18 07:13 05/04/18 02:01 Duoneb 3 Mg/0.5 Mg (3 Ml) Ud IH 3 ml [id number] PRN Administration Shortness of Breath Arformoterol Tartrate 15 mcg 05/01/18 20:00 05/04/18 07:14 Brovana IH 15 mcg [id number] STEVEN Administration Aspirin 81 mg 04/27/18 10:00 05/03/18 09:24 Aspirin Chewable PO 81 mg DAILY STEVEN Administration Aspirin 81 mg 05/05/18 10:00 Ecotrin PO DAILY STEVEN Atorvastatin Calcium 40 mg 05/02/18 17:00 05/03/18 17:59 Lipitor PO 40 mg DIN STEVEN Administration Budesonide 0.5 mg 05/01/18 20:00 05/04/18 07:14 Pulmicort Respules IH 0.5 mg [id number] STEVEN Administration Carbidopa/Levodopa/Entacapone 1 tab 04/27/18 10:00 05/03/18 17:59 Stalevo 150 PO 1 tab TID STEVEN Administration Clopidogrel Bisulfate 75 mg 04/29/18 10:00 05/03/18 09:25 Plavix PO 75 mg DAILY STEVEN Administration Dextrose 0 ml 04/29/18 12:32 Dextrose 50% Inj IV STAT PRN Hypoglycemia Protocol Protocol Docusate Sodium 100 mg 04/27/18 10:00 05/03/18 18:16 Colace PO 100 mg BID STEVEN Administration Furosemide 40 mg 05/03/18 09:30 05/04/18 08:31 Lasix IVP 40 mg Q12H STEVEN Administration Heparin Sodium (Porcine) 5,000 units 05/01/18 22:00 05/04/18 06:05 Heparin SC 5,000 units Q8 STEVEN Administration Protocol Aztreonam 100 mls @ 100 mls/hr 04/29/18 09:45 05/04/18 06:05 Azactam 1 Gm IVPB 05/06/18 09:46 100 mls/hr Q8 STEVEN Administration Protocol Dextrose 1,000 mls @ 0 mls/hr 04/29/18 12:32 Dextrose 5% In Water 1000 Ml IV .Q0M PRN Hypoglycemia Protocol Protocol Per Protocol Metronidazole 500 mg in 100 mls @ 100 mls/hr 05/02/18 14:00 05/04/18 06:04 Flagyl IVPB 100 mls/hr Q8 STEVEN Administration Protocol Milrinone Lactate/Dextrose 100 mls @ 3.837 mls/hr 05/04/18 08:48 05/04/18 09:05 Primacor 20mg/100ml D5w IV 0.01 mcg/kg/min .Q24H PRN 0.2 mls/hr TITRATE PER MD ORDER Administration Protocol 0.2 MCG/KG/MIN Propofol 1,000 mg in 100 mls @ 1.919 mls/hr 05/04/18 10:05 05/04/18 10:46 Diprivan IV 5 mcg/kg/min .Q24H PRN 1.919 mls/hr TITRATE PER MD ORDER Administration Protocol 5 MCG/KG/MIN Sodium Chloride 1,000 mls @ 50 mls/hr 05/04/18 11:45 Sodium Chloride 0.9% IV 05/04/18 19:00 .Q20H STEVEN Vancomycin HCl 2 gm/ Sodium 500 mls @ 170 mls/hr 05/04/18 14:34 Chloride IVPB 05/04/18 17:30 ONCE ONE Protocol Insulin Human Lispro 0 units 04/30/18 18:00 05/04/18 06:00 Humalog High SC Not Given Q6 STEVEN Protocol Lisinopril 10 mg 04/27/18 10:00 04/29/18 10:25 Zestril PO Not Given DAILY STEVEN Methylprednisolone 40 mg 05/04/18 08:14 Solu-Medrol IVP Q12 STEVEN Metoprolol Tartrate 25 mg 04/28/18 08:32 05/03/18 17:59 Lopressor PO 25 mg BID STEVEN Administration Nicotine 1 patch 05/02/18 10:00 05/03/18 09:23 Nicoderm Cq TD 1 patch DAILY STEVEN Administration Pantoprazole Sodium 40 mg 04/29/18 10:00 05/03/18 09:23 Protonix Inj IVP 40 mg DAILY STEVEN Administration Zolpidem Tartrate 5 mg 04/28/18 20:25 04/28/18 22:12 Ambien PO 5 mg HS PRN Administration Insomnia Protocol - Patient Studies Lab Studies: Microbiology Studies 05/03/18 07:30 Blood Culture - Preliminary Blood-Venous NO GROWTH AFTER 24 HOURS 05/03/18 07:15 Blood Culture - Preliminary Blood-Venous NO GROWTH AFTER 24 HOURS Lab Studies 05/04/18 05/04/18 05/04/18 Range/Units 11:52 10:14 07:00 WBC (4.5-11.0) 10^3/uL RBC (3.5-6.1) 10^6/uL Hgb (12.0-16.0) g/dL Hct (36.0-48.0) % MCV (80.0-105.0) fl MCH (25.0-35.0) pg MCHC (31.0-37.0) g/dl RDW (11.5-14.5) % Plt Count (120.0-450.0) 10^3/uL MPV (7.0-11.0) fl Neut % (Auto) (50.0-68.0) % Lymph % (Auto) (22.0-35.0) % Tama % (Auto) (1.0-6.0) % Eos % (Auto) (1.5-5.0) % Baso % (Auto) (0.0-3.0) % Lymph # (Auto) (1.2-3.4) Tama # (Auto) (0.1-0.6) Eos # (Auto) (0.0-0.7) Baso # (Auto) (0.0-2.0) K/mm3 Absolute Neuts (auto) (1.4-6.5) Neutrophils % (Manual) (50.0-70.0) % Lymphocytes % (Manual) (22.0-35.0) % Monocytes % (Manual) Nucleated RBC % % Plt Clumps, EDTA Anisocytosis (manual) pCO2 34 L 41 (35-45) mm/Hg pO2 133.0 H 70.0 L (80-100) mm/Hg HCO3 18.3 L 20.2 L (21-28) mmol/L ABG pH 7.34 L 7.30 L (7.35-7.45) ABG Total CO2 19.3 L 21.5 L (22-28) mmol.L ABG O2 Saturation 99.0 H 95.5 (95-98) % ABG O2 Content 10.0 L 17.0 (15-23) ML/dl ABG Base Excess -6.8 L -5.9 L (-2.0-3.0) mmol/L ABG Hemoglobin 7.2 L 13.0 (11.7-17.4) g/dL ABG Carboxyhemoglobin 1.7 H 1.9 H (0.5-1.5) % POC ABG HHb (Measured) 1.0 4.4 (0-5) % ABG Methemoglobin 1.3 0.9 (0.0-3.0) % ABG O2 Capacity 10.1 L 17.8 (16-24) mL/dl Hgb O2 Saturation 96.0 92.7 L (95.0-98.0) % FiO2 50.0 35.0 % Sodium (132-148) mmol/L Potassium (3.6-5.0) mmol/L Chloride (98-107) mmol/L Carbon Dioxide (21-33) mmol/L Anion Gap (10-20) BUN (7-21) mg/dL Creatinine (0.7-1.2) mg/dl Est GFR ( Amer) Est GFR (Non-Af Amer) POC Glucose (mg/dL) 323 H (65-110) mg/dL Random Glucose (70-110) mg/dL Calcium (8.4-10.5) mg/dL Total Bilirubin (0.2-1.3) mg/dL AST (14-36) U/L ALT (7-56) U/L Alkaline Phosphatase (38-126) U/L Troponin I ng/mL NT-Pro-B Natriuret Pep (0-450) pg/mL Total Protein (5.8-8.3) g/dL Albumin (3.0-4.8) g/dL Globulin gm/dL Albumin/Globulin Ratio (1.1-1.8) 05/04/18 05/04/18 05/04/18 Range/Units 07:00 07:00 05:36 WBC 30.8 H* (4.5-11.0) 10^3/uL RBC 2.81 L (3.5-6.1) 10^6/uL Hgb 8.4 L (12.0-16.0) g/dL Hct 26.2 L (36.0-48.0) % MCV 93.2 (80.0-105.0) fl MCH 29.9 (25.0-35.0) pg MCHC 32.1 (31.0-37.0) g/dl RDW 15.2 H (11.5-14.5) % Plt Count 261 (120.0-450.0) 10^3/uL MPV 10.4 (7.0-11.0) fl Neut % (Auto) 84.7 H (50.0-68.0) % Lymph % (Auto) 13.7 L (22.0-35.0) % Tama % (Auto) 1.5 (1.0-6.0) % Eos % (Auto) 0.0 L (1.5-5.0) % Baso % (Auto) 0.1 (0.0-3.0) % Lymph # (Auto) 4.2 H (1.2-3.4) Tama # (Auto) 0.5 (0.1-0.6) Eos # (Auto) 0.0 (0.0-0.7) Baso # (Auto) 0.02 (0.0-2.0) K/mm3 Absolute Neuts (auto) 26.15 H (1.4-6.5) Neutrophils % (Manual) 88 H (50.0-70.0) % Lymphocytes % (Manual) 12 L (22.0-35.0) % Monocytes % (Manual) TEST NOT PERFORMED Nucleated RBC % 2 % Plt Clumps, EDTA Present Anisocytosis (manual) Slight pCO2 (35-45) mm/Hg pO2 (80-100) mm/Hg HCO3 (21-28) mmol/L ABG pH (7.35-7.45) ABG Total CO2 (22-28) mmol.L ABG O2 Saturation (95-98) % ABG O2 Content (15-23) ML/dl ABG Base Excess (-2.0-3.0) mmol/L ABG Hemoglobin (11.7-17.4) g/dL ABG Carboxyhemoglobin (0.5-1.5) % POC ABG HHb (Measured) (0-5) % ABG Methemoglobin (0.0-3.0) % ABG O2 Capacity (16-24) mL/dl Hgb O2 Saturation (95.0-98.0) % FiO2 % Sodium 151 H (132-148) mmol/L Potassium 4.5 (3.6-5.0) mmol/L Chloride 119 H (98-107) mmol/L Carbon Dioxide 21 (21-33) mmol/L Anion Gap 16 (10-20) BUN 83 H (7-21) mg/dL Creatinine 2.1 H (0.7-1.2) mg/dl Est GFR ( Amer) 27 Est GFR (Non-Af Amer) 22 POC Glucose (mg/dL) 296 H (65-110) mg/dL Random Glucose 209 H (70-110) mg/dL Calcium 7.8 L (8.4-10.5) mg/dL Total Bilirubin 0.4 (0.2-1.3) mg/dL AST 38 H D (14-36) U/L ALT 26 (7-56) U/L Alkaline Phosphatase 130 H D (38-126) U/L Troponin I ng/mL NT-Pro-B Natriuret Pep (0-450) pg/mL Total Protein 5.4 L (5.8-8.3) g/dL Albumin 2.6 L (3.0-4.8) g/dL Globulin 2.8 gm/dL Albumin/Globulin Ratio 0.9 L (1.1-1.8) 05/04/18 05/04/18 05/03/18 Range/Units 00:43 00:30 17:28 WBC (4.5-11.0) 10^3/uL RBC (3.5-6.1) 10^6/uL Hgb (12.0-16.0) g/dL Hct (36.0-48.0) % MCV (80.0-105.0) fl MCH (25.0-35.0) pg MCHC (31.0-37.0) g/dl RDW (11.5-14.5) % Plt Count (120.0-450.0) 10^3/uL MPV (7.0-11.0) fl Neut % (Auto) (50.0-68.0) % Lymph % (Auto) (22.0-35.0) % Tama % (Auto) (1.0-6.0) % Eos % (Auto) (1.5-5.0) % Baso % (Auto) (0.0-3.0) % Lymph # (Auto) (1.2-3.4) Tama # (Auto) (0.1-0.6) Eos # (Auto) (0.0-0.7) Baso # (Auto) (0.0-2.0) K/mm3 Absolute Neuts (auto) (1.4-6.5) Neutrophils % (Manual) (50.0-70.0) % Lymphocytes % (Manual) (22.0-35.0) % Monocytes % (Manual) Nucleated RBC % % Plt Clumps, EDTA Anisocytosis (manual) pCO2 (35-45) mm/Hg pO2 (80-100) mm/Hg HCO3 (21-28) mmol/L ABG pH (7.35-7.45) ABG Total CO2 (22-28) mmol.L ABG O2 Saturation (95-98) % ABG O2 Content (15-23) ML/dl ABG Base Excess (-2.0-3.0) mmol/L ABG Hemoglobin (11.7-17.4) g/dL ABG Carboxyhemoglobin (0.5-1.5) % POC ABG HHb (Measured) (0-5) % ABG Methemoglobin (0.0-3.0) % ABG O2 Capacity (16-24) mL/dl Hgb O2 Saturation (95.0-98.0) % FiO2 % Sodium 150 H (132-148) mmol/L Potassium 3.8 (3.6-5.0) mmol/L Chloride 118 H (98-107) mmol/L Carbon Dioxide 22 (21-33) mmol/L Anion Gap 14 (10-20) BUN 78 H (7-21) mg/dL Creatinine 2.1 H (0.7-1.2) mg/dl Est GFR ( Amer) 27 Est GFR (Non-Af Amer) 22 POC Glucose (mg/dL) 224 H 456 H* (65-110) mg/dL Random Glucose 134 H (70-110) mg/dL Calcium 8.2 L (8.4-10.5) mg/dL Total Bilirubin (0.2-1.3) mg/dL AST (14-36) U/L ALT (7-56) U/L Alkaline Phosphatase (38-126) U/L Troponin I 2.44 H* D ng/mL NT-Pro-B Natriuret Pep 499001 H (0-450) pg/mL Total Protein (5.8-8.3) g/dL Albumin (3.0-4.8) g/dL Globulin gm/dL Albumin/Globulin Ratio (1.1-1.8) Laboratory Results - last 24 hr 05/03/18 05/04/18 05/04/18 17:28 00:30 00:43 WBC RBC Hgb Hct MCV MCH MCHC RDW Plt Count MPV Neut % (Auto) Lymph % (Auto) Tama % (Auto) Eos % (Auto) Baso % (Auto) Lymph # (Auto) Tama # (Auto) Eos # (Auto) Baso # (Auto) Absolute Neuts (auto) Neutrophils % (Manual) Lymphocytes % (Manual) Monocytes % (Manual) Nucleated RBC % Plt Clumps, EDTA Anisocytosis (manual) pCO2 pO2 HCO3 ABG pH ABG Total CO2 ABG O2 Saturation ABG O2 Content ABG Base Excess ABG Hemoglobin ABG Carboxyhemoglobin POC ABG HHb (Measured) ABG Methemoglobin ABG O2 Capacity Hgb O2 Saturation FiO2 Sodium 150 H Potassium 3.8 Chloride 118 H Carbon Dioxide 22 Anion Gap 14 BUN 78 H Creatinine 2.1 H Est GFR ( Amer) 27 Est GFR (Non-Af Amer) 22 POC Glucose (mg/dL) 456 H* 224 H Random Glucose 134 H Calcium 8.2 L Total Bilirubin AST ALT Alkaline Phosphatase Troponin I 2.44 H* D NT-Pro-B Natriuret Pep 074163 H Total Protein Albumin Globulin Albumin/Globulin Ratio 05/04/18 05/04/18 05/04/18 05:36 07:00 07:00 WBC 30.8 H* RBC 2.81 L Hgb 8.4 L Hct 26.2 L MCV 93.2 MCH 29.9 MCHC 32.1 RDW 15.2 H Plt Count 261 MPV 10.4 Neut % (Auto) 84.7 H Lymph % (Auto) 13.7 L Tama % (Auto) 1.5 Eos % (Auto) 0.0 L Baso % (Auto) 0.1 Lymph # (Auto) 4.2 H Tama # (Auto) 0.5 Eos # (Auto) 0.0 Baso # (Auto) 0.02 Absolute Neuts (auto) 26.15 H Neutrophils % (Manual) 88 H Lymphocytes % (Manual) 12 L Monocytes % (Manual) TEST NOT PERFORMED Nucleated RBC % 2 Plt Clumps, EDTA Present Anisocytosis (manual) Slight pCO2 pO2 HCO3 ABG pH ABG Total CO2 ABG O2 Saturation ABG O2 Content ABG Base Excess ABG Hemoglobin ABG Carboxyhemoglobin POC ABG HHb (Measured) ABG Methemoglobin ABG O2 Capacity Hgb O2 Saturation FiO2 Sodium 151 H Potassium 4.5 Chloride 119 H Carbon Dioxide 21 Anion Gap 16 BUN 83 H Creatinine 2.1 H Est GFR ( Amer) 27 Est GFR (Non-Af Amer) 22 POC Glucose (mg/dL) 296 H Random Glucose 209 H Calcium 7.8 L Total Bilirubin 0.4 AST 38 H D ALT 26 Alkaline Phosphatase 130 H D Troponin I NT-Pro-B Natriuret Pep Total Protein 5.4 L Albumin 2.6 L Globulin 2.8 Albumin/Globulin Ratio 0.9 L 05/04/18 05/04/18 05/04/18 07:00 10:14 11:52 WBC RBC Hgb Hct MCV MCH MCHC RDW Plt Count MPV Neut % (Auto) Lymph % (Auto) Tama % (Auto) Eos % (Auto) Baso % (Auto) Lymph # (Auto) T[place] # (Auto) Eos # (Auto) Baso # (Auto) Absolute Neuts (auto) Neutrophils % (Manual) Lymphocytes % (Manual) Monocytes % (Manual) Nucleated RBC % Plt Clumps, EDTA Anisocytosis (manual) pCO2 41 34 L pO2 70.0 L 133.0 H HCO3 20.2 L 18.3 L ABG pH 7.30 L 7.34 L ABG Total CO2 21.5 L 19.3 L ABG O2 Saturation 95.5 99.0 H ABG O2 Content 17.0 10.0 L ABG Base Excess -5.9 L -6.8 L ABG Hemoglobin 13.0 7.2 L ABG Carboxyhemoglobin 1.9 H 1.7 H POC ABG HHb (Measured) 4.4 1.0 ABG Methemoglobin 0.9 1.3 ABG O2 Capacity 17.8 10.1 L Hgb O2 Saturation 92.7 L 96.0 FiO2 35.0 50.0 Sodium Potassium Chloride Carbon Dioxide Anion Gap BUN Creatinine Est GFR ( Amer) Est GFR (Non-Af Amer) POC Glucose (mg/dL) 323 H Random Glucose Calcium Total Bilirubin AST ALT Alkaline Phosphatase Troponin I NT-Pro-B Natriuret Pep Total Protein Albumin Globulin Albumin/Globulin Ratio Radiology Impressions: Radiology Impressions Chest X-Ray 05/04/18 00:12 IMPRESSION: There is an increase in the pulmonary vascular congestion and right-sided perihilar infiltrate. Chest X-Ray 05/04/18 09:14 IMPRESSION: The endotracheal tube and nasogastric tube are in satisfactory position. There is a patchy infiltrate in the right upper lobe as well as perihilar infiltrates or vascular congestion EKG/Cardiology Studies: Cardiology / EKG Studies 05/04/18 ELECTROCARDIOGRAM Routine Comment: Reason For Exam: follow up prior to code heart 05/04/18 00:24 EKG [ELECTROCARDIOGRAM] Stat Comment: Reason For Exam: r/o NH 05/04/18 11:36 ELECTROCARDIOGRAM Urgent Comment: 12 lead EKG upon arrival in unit Reason For Exam: post ptca 05/05/18 11:45 ELECTROCARDIOGRAM DAILY Comment: Reason For Exam: chest pain Critical Care Progress Note - Nutrition Nutrition: Nutrition Category Date Time Status Pureed [Dysphagia/Modified Consistency Diet] [DIET] Diets 05/02/18 Lunch Ordered Attending/Attestation - Attestation I have personally seen and examined this patient.: Yes I have fully participated in the care of the patient.: Yes I have reviewed all pertinent clinical information: Yes Notes (Text): 05/04/18 15:[address] Connell note
[2018-05-04] MEDS ORDERED: Lidocaine 2% Inj (20ml) ONE (09:52)
[2018-05-04] MEDS ORDERED: Iodixanol 320 MG/ML 200 ML BOTTLE IV ONE (09:52)
[2018-05-04] MEDS ORDERED: Iohexol 350mgl/ml 50 ML ONE (09:52)
[2018-05-04] MEDS ORDERED: Iodixanol 320 MG/ML 100 ML BOTTLE IV ONE (09:52)
[2018-05-04] MEDS ORDERED: Phenylephrine 10 mg/ml Inj ONE (09:52)
[2018-05-04] MEDS ORDERED: Nitroglycerin 50mg in D5W 0 MG/0 ML BOTTLE IV ONE (09:52)
[2018-05-04] MEDS ORDERED: Propofol 10 mg/ml Inj (20 ML) IVP ONE (10:05)
--- NOTE | 2018-05-04 10:15 | CP.PCM.PN ---
<Henry Wilkins - Last Filed: 05/04/18 13:56> Subjective - Date & Time of Evaluation Date of Evaluation: 05/04/18 Time of Evaluation: 09:45 - Subjective Subjective: Infectious disease progress note: Patient seen and examined at bedside. Code heart called this am. Patient will be going to cardiac cath. Prior to this the patient developed resp distress and was intubated. 12 point ROS unobtainable 2/2 intubation Objective - Vital Signs/Intake and Output Vital Signs (last 24 hours): Temp Pulse Resp BP Pulse Ox 97 F L 97 H 35 H 125/50 L 96 05/03/18 16:00 05/04/18 08:45 05/04/18 06:00 05/04/18 08:45 05/04/18 06:00 Intake and Output: 05/04/18 05/04/18 06:59 18:59 Intake Total 450 Output Total 800 Balance -350 - Medications Medications: Current Medications Acetaminophen (Tylenol 325mg Tab) 650 mg PO Q6H PRN PRN Reason: Fever >100.4 F Last Admin: 04/28/18 01:29 Dose: 650 mg Albuterol/Ipratropium (Duoneb 3 Mg/0.5 Mg (3 Ml) Ud) 3 ml IH [id number] PRN PRN Reason: Shortness of Breath Last Admin: 05/04/18 02:01 Dose: 3 ml Arformoterol Tartrate (Brovana) 15 mcg IH [id number] [facility] Last Admin: 05/04/18 07:14 Dose: 15 mcg Aspirin (Aspirin Chewable) 81 mg PO DAILY [facility] Last Admin: 05/03/18 09:24 Dose: 81 mg Atorvastatin Calcium (Lipitor) 40 mg PO DIN [facility] Last Admin: 05/03/18 17:59 Dose: 40 mg Budesonide (Pulmicort Respules) 0.5 mg IH [id number] [facility] Last Admin: 05/04/18 07:14 Dose: 0.5 mg Carbidopa/Levodopa/Entacapone (Stalevo 150) 1 tab PO TID [facility] Last Admin: 05/03/18 17:59 Dose: 1 tab Clopidogrel Bisulfate (Plavix) 75 mg PO DAILY [facility] Last Admin: 05/03/18 09:25 Dose: 75 mg Dextrose (Dextrose 50% Inj) 0 ml IV STAT PRN; Protocol PRN Reason: Hypoglycemia Protocol Docusate Sodium (Colace) 100 mg PO BID [facility] Last Admin: 05/03/18 18:16 Dose: 100 mg Furosemide (Lasix) 40 mg IVP Q12H [facility] Last Admin: 05/04/18 08:31 Dose: 40 mg Heparin Sodium (Porcine) (Heparin) 5,000 units SC Q8 [facility]; Protocol Last Admin: 05/04/18 06:05 Dose: 5,000 units Aztreonam (Azactam 1 Gm) 100 mls @ 100 mls/hr IVPB Q8 [facility]; Protocol Stop: 05/06/18 09:46 Last Admin: 05/04/18 06:05 Dose: 100 mls/hr Dextrose (Dextrose 5% In Water 1000 Ml) 1,000 mls @ 0 mls/hr IV .Q0M PRN; Protocol PRN Reason: Hypoglycemia Protocol Metronidazole (Flagyl) 500 mg in 100 mls @ 100 mls/hr IVPB Q8 [facility]; Protocol Last Admin: 05/04/18 06:04 Dose: 100 mls/hr Milrinone Lactate/Dextrose (Primacor 20mg/100ml D5w) 100 mls @ 3.837 mls/hr IV .Q24H PRN; Protocol PRN Reason: TITRATE PER MD ORDER Vancomycin HCl 2 gm/ Sodium (Chloride) 500 mls @ 170 mls/hr IVPB ONCE ONE; Protocol Stop: 05/04/18 12:29 Propofol (Diprivan) 1,000 mg in 100 mls @ 1.919 mls/hr IV .Q24H PRN; Protocol PRN Reason: TITRATE PER MD ORDER Insulin Human Lispro (Humalog High) 0 units SC Q6 [facility]; Protocol Last Admin: 05/04/18 06:00 Dose: Not Given Lisinopril (Zestril) 10 mg PO DAILY [facility] Last Admin: 04/29/18 10:25 Dose: Not Given Methylprednisolone (Solu-Medrol) 40 mg IVP Q12 [facility] Metoprolol Tartrate (Lopressor) 25 mg PO BID [facility] Last Admin: 05/03/18 17:59 Dose: 25 mg Nicotine (Nicoderm Cq) 1 patch TD DAILY [facility] Last Admin: 05/03/18 09:23 Dose: 1 patch Pantoprazole Sodium (Protonix Inj) 40 mg IVP DAILY [facility] Last Admin: 05/03/18 09:23 Dose: 40 mg Zolpidem Tartrate (Ambien) 5 mg PO HS PRN; Protocol PRN Reason: Insomnia Last Admin: 04/28/18 22:12 Dose: 5 mg - Labs Labs: 05/04/18 07:00 05/04/18 07:00 PT 18.7 SECONDS (9.4-12.5) H 04/29/18 14:00 INR 1.68 04/29/18 14:00 APTT 38.9 Seconds (26.9-38.3) H 05/01/18 07:38 - Constitutional Appears: No Acute Distress - Head Exam Head Exam: ATRAUMATIC, NORMOCEPHALIC - Eye Exam Pupil Exam: PERRL - ENT Exam ENT Exam: Mucous Membranes Moist - Respiratory Exam Respiratory Exam: Clear to Ausculation Bilateral. absent: Wheezes - Cardiovascular Exam Cardiovascular Exam: RRR, +S1, +S2 - GI/Abdominal Exam GI & Abdominal Exam: Soft. absent: Tenderness - Extremities Exam Extremities Exam: absent: Calf Tenderness, Pedal Edema - Neurological Exam Neurological Exam: Alert, Awake, Oriented x3 - Psychiatric Exam Psychiatric exam: Normal Mood - Skin Skin Exam: Dry, Warm Assessment and Plan - Assessment and Plan (Free Text) Assessment: 88-year-old female with past medical history of hypertension, diabetes, Parkinson's, CAD, CLL presents with SIRS with fevers and leukocytosis, VDRF, R/O sepsis in this patient S/P cardiac arrest, with left leg fracture. Patietn developed resp distress overnight and was intubated. Code heart called. Plan for cardiac cath today. WBCs elevated 30.8 - likely bc of bacteremia and/or steroid Continue Azactam and flagyl Urine culture shows E. coli, and blood cultures 2/1 show Bacteroides; repeat blood cx were neg x 24 hr f/u cardiology recs Continue to monitor for any changes. Case and plan was reviewed and discussed with Dr. Becker. <Hammad Becker - Last Filed: 05/04/18 14:33> Objective - Vital Signs/Intake and Output Vital Signs (last 24 hours): Temp Pulse Resp BP Pulse Ox 99.1 F 22 L 23 75/38 L 98 05/04/18 07:00 05/04/18 13:21 05/04/18 13:06 05/04/18 13:21 05/04/18 12:37 Intake and Output: 05/04/18 05/04/18 06:59 18:59 Intake Total 450 Output Total 800 Balance -350 - Medications Medications: Current Medications Acetaminophen (Tylenol 325mg Tab) 650 mg PO Q6H PRN PRN Reason: Fever >100.4 F Last Admin: 04/28/18 01:29 Dose: 650 mg Albuterol/Ipratropium (Duoneb 3 Mg/0.5 Mg (3 Ml) Ud) 3 ml IH [id number] PRN PRN Reason: Shortness of Breath Last Admin: 05/04/18 02:01 Dose: 3 ml Arformoterol Tartrate (Brovana) 15 mcg IH [id number] [facility] Last Admin: 05/04/18 07:14 Dose: 15 mcg Aspirin (Aspirin Chewable) 81 mg PO DAILY [facility] Last Admin: 05/03/18 09:24 Dose: 81 mg Aspirin (Ecotrin) 81 mg PO DAILY [facility] Atorvastatin Calcium (Lipitor) 40 mg PO DIN [facility] Last Admin: 05/03/18 17:59 Dose: 40 mg Budesonide (Pulmicort Respules) 0.5 mg IH [id number] [facility] Last Admin: 05/04/18 07:14 Dose: 0.5 mg Carbidopa/Levodopa/Entacapone (Stalevo 150) 1 tab PO TID [facility] Last Admin: 05/03/18 17:59 Dose: 1 tab Clopidogrel Bisulfate (Plavix) 75 mg PO DAILY [facility] Last Admin: 05/03/18 09:25 Dose: 75 mg Dextrose (Dextrose 50% Inj) 0 ml IV STAT PRN; Protocol PRN Reason: Hypoglycemia Protocol Docusate Sodium (Colace) 100 mg PO BID [facility] Last Admin: 05/03/18 18:16 Dose: 100 mg Furosemide (Lasix) 40 mg IVP Q12H [facility] Last Admin: 05/04/18 08:31 Dose: 40 mg Heparin Sodium (Porcine) (Heparin) 5,000 units SC Q8 [facility]; Protocol Last Admin: 05/04/18 06:05 Dose: 5,000 units Aztreonam (Azactam 1 Gm) 100 mls @ 100 mls/hr IVPB Q8 [facility]; Protocol Stop: 05/06/18 09:46 Last Admin: 05/04/18 06:05 Dose: 100 mls/hr Dextrose (Dextrose 5% In Water 1000 Ml) 1,000 mls @ 0 mls/hr IV .Q0M PRN; Protocol PRN Reason: Hypoglycemia Protocol Metronidazole (Flagyl) 500 mg in 100 mls @ 100 mls/hr IVPB Q8 [facility]; Protocol Last Admin: 05/04/18 06:04 Dose: 100 mls/hr Milrinone Lactate/Dextrose (Primacor 20mg/100ml D5w) 100 mls @ 3.837 mls/hr IV .Q24H PRN; Protocol PRN Reason: TITRATE PER MD ORDER Last Admin: 05/04/18 09:05 Dose: 0.01 mcg/kg/min, 0.2 mls/hr Propofol (Diprivan) 1,000 mg in 100 mls @ 1.919 mls/hr IV .Q24H PRN; Protocol PRN Reason: TITRATE PER MD ORDER Last Admin: 05/04/18 10:46 Dose: 5 mcg/kg/min, 1.919 mls/hr Sodium Chloride (Sodium Chloride 0.9%) 1,000 mls @ 50 mls/hr IV .Q20H [facility] Stop: 05/04/18 19:00 Insulin Human Lispro (Humalog High) 0 units SC Q6 [facility]; Protocol Last Admin: 05/04/18 06:00 Dose: Not Given Lisinopril (Zestril) 10 mg PO DAILY [facility] Last Admin: 04/29/18 10:25 Dose: Not Given Methylprednisolone (Solu-Medrol) 40 mg IVP Q12 [facility] Metoprolol Tartrate (Lopressor) 25 mg PO BID [facility] Last Admin: 05/03/18 17:59 Dose: 25 mg Nicotine (Nicoderm Cq) 1 patch TD DAILY [facility] Last Admin: 05/03/18 09:23 Dose: 1 patch Pantoprazole Sodium (Protonix Inj) 40 mg IVP DAILY [facility] Last Admin: 05/03/18 09:23 Dose: 40 mg Zolpidem Tartrate (Ambien) 5 mg PO HS PRN; Protocol PRN Reason: Insomnia Last Admin: 04/28/18 22:12 Dose: 5 mg - Labs Labs: 05/04/18 07:00 05/04/18 07:00 PT 18.7 SECONDS (9.4-12.5) H 04/29/18 14:00 INR 1.68 04/29/18 14:00 APTT 38.9 Seconds (26.9-38.3) H 05/01/18 07:38 Assessment and Plan - Assessment and Plan (Free Text) Assessment: Infectious diseases Attending Physician Attestation Patient seen and examined, discussed with medical registrar. I have reviewed the patient's history of present illness, past medical, social, personal and family histories, pertinent physical exam findings, course so far in this hospital admission, pertinent laboratory and imaging results. I agree with the above findings, assessment and plan. In addition, continue Azactam, Flagyl and will give a dose of IV Vancomycin today for patient with severe sepsis with BActeroides bacteremia, R/O intra-abdominal infection. On CT A/P, gas was noted around the uterus and Cloth Finisher is on-board evaluating. Discussed with ICU team and would suggest surgical evaluation. MRI pelvis has been ordered for further imaging. Patient was re-intubated and went for cardiac cath today for her NSTEMI. Overall prognosis is poor. Repeat blood are now negative.
--- NOTE | 2018-05-04 10:20 | RAD ---
Date of service: 05/04/2018 HISTORY: r/o fluid overload COMPARISON: 05/03/2018 FINDINGS: LUNGS: There is an increase in the pulmonary vascular congestion and right-sided perihilar infiltrate. PLEURA: No significant pleural effusion identified, no pneumothorax apparent. CARDIOVASCULAR: Aortic calcification Normal cardiac size. No pulmonary vascular congestion. OSSEOUS STRUCTURES: No significant abnormalities. VISUALIZED UPPER ABDOMEN: Normal. OTHER FINDINGS: None. IMPRESSION: There is an increase in the pulmonary vascular congestion and right-sided perihilar infiltrate.
--- NOTE | 2018-05-04 10:23 | CARD ---
APPROVED REPORT Date of service: 05/04/2018 EKG Measurement Heart [id number] <Conclusion> Normal sinus rhythm Left anterior fascicular block Anteroseptal infarct, age undetermined ST & T wave abnormality, consider lateral ischemia Abnormal ECG
--- NOTE | 2018-05-04 10:42 | CP.PCM.PCO ---
Assessment/Plan Progress Note - Assessment/Plan Assessment (Free Text): Deana Leach DO, PGY-2: House Doctor response to code heart Code heart called in CCU. Patient was transferred to cardiac catheterization. House physician, nursing staff, and Respiratory Therapist accompanied patient . No adverse events noted. - Problems Patient Problems: Problem List (Active/Current) Problem Status Onset Code Ankle fracture Acute S82.899A Falls frequently Acute R29.6 Leukocytosis Acute D72.829
[2018-05-04] MEDS ORDERED: Eptifibatide 20 mg/10mL Inj IVP ONE (10:45)
[2018-05-04] MEDS: Propofol 10 mg/ml 1,000 MG/100 ML VIAL IV PRN ×2 (10:46→18:33)
--- NOTE | 2018-05-04 10:49 | CARD ---
APPROVED REPORT Date of service: 05/04/2018 EKG Measurement Heart [id number] <Conclusion> Normal sinus rhythm with premature atrial complexes Left axis deviation Anteroseptal infarct, age undetermined ST & T wave abnormality, consider lateral ischemia Abnormal ECG
[2018-05-04] MEDS ORDERED: Eptifibatide 0.75 mg/ml 75 MG/100 ML BOTTLE IV ONE (11:13)
--- NOTE | 2018-05-04 11:20 | PN ---
DATE: 05/04/2018(700am-750am) SUBJECTIVE: The patient appears restless this morning. She is moderately short of breath, but in no acute distress. PHYSICAL EXAMINATION: VITAL SIGNS: Temperature is 97, pulse 101, respiratory rate 26/28, blood pressure 111/54. Oxygen saturation on BiPap is 96%. HEENT: Normocephalic, atraumatic. No JVD. CARDIOVASCULAR: Systolic ejection murmur at the lower left sternal border. Questionable S3 gallop. LUNGS: Minimal crackles at the bases. Minimal rhonchi. No wheezing. EXTREMITIES: No clubbing, cyanosis or edema. GASTROINTESTINAL: Abdomen is soft, nontender and nondistended. Bowel sounds are positive. SKIN: No acute rash. NEUROLOGIC: Exam limited at the present time. PERTINENT LABORATORY DATA: Chest x-ray was done this morning and reviewed. There is mild pulmonary vascular congestion noted. However, it appears on today's film, that there is a possible hazy infiltrate throughout the right lung. Arterial blood gas was done on BiPap. Results are: PH 7.30, pCO2 of 41, pO2 of 71. IMPRESSION: 1. Respiratory failure. 2. Status post code blue. 3. Acute myocardial infarction. 4. Acute congestive heart failure. 5. Chronic obstructive pulmonary disease. 6. Anemia. 7. Rule out pneumonia - right lung. PLAN: The patient appears moderately short of breath this morning. She is very restless. I did discuss the case with the night nurse at length. The night nurse confirmed that the patient has been short of breath and restless during the last shift. I did review the chest x-ray as above. It is a poor rotated film, but appears to show possible increased haziness in the right lung. I have also reviewed the arterial blood gas. There is a significant alveolar-arterial gradient noted.. I would continue with the treatment for congestive heart failure and acute myocardial infarction as per Cardiology. I would continue with the antibiotic coverage - as per Infectious Disease. Input by Dr. Hewitt is noted. I will also order aspiration precautions. The patient remains critically ill with very guarded/poor prognosis. She may in fact need reintubation. I will discuss the above with the entire ICU team in the next few moments. I will also discuss the above with the attending physician later this morning. Burton Aguilar MD MTDRich
--- NOTE | 2018-05-04 11:35 | PN ---
SUBJECTIVE: The patient was seen and examined at bedside in the CCU. No acute events overnight. She remains afebrile, hemodynamically stable and largely clinically unchanged. OBJECTIVE: VITAL SIGNS: Temperature 99.2, pulse 101, blood pressure 127/50, respiratory rate 20, oxygen saturation 96% on BiPap. GENERAL: Frail elderly woman, appearing her stated age, sitting up in bed in no apparent distress. HEENT: PERRL, EOMI. No scleral icterus. Conjunctival pallor is noted. NECK: No JVD. LUNGS: Scattered wheeze with rhonchi and bibasilar crackles. CARDIOVASCULAR: Tachycardic. Normal S1, S2. Grade II/ KERMIT to LLSB. ABDOMEN: Normoactive bowel sounds, soft, nondistended, tender to palpation to lower abdomen with voluntary guarding. EXTREMITIES: Left ankle with River wrapping in place. NEUROLOGIC: Awake and alert. Moving all extremities. LABORATORY DATA: WBC 30.8 with 84% neutrophils, hemoglobin 8.4, hematocrit 26, platelets 261. Sodium 151, potassium 4.5, chloride 119, bicarb 21, BUN 83, creatinine 2.1, glucose 209. BNP 147,000. Urine culture with E. coli and sensitivities noted. Blood culture with bacteroides species and sensitivities pending. ASSESSMENT: The patient is an 88-year-old woman with a past medical history of Parkinson disease with recurrent falls who was initially admitted to the general medical gurrola s/p mechanical fall with resultant left ankle fracture whose hospital course was complicated by NSTEMI with PEA arrest and was subsequently transferred to CCU for continued care. PLAN: 1. s/p PEA arrest. The patient remains extubated, off vasopressor support and clinically unchanged. Continue with care as per CCU team. 2. Acute hypoxic respiratory failure s/p extubation. Input from Dr. Aguilar noted. Continue with care as per CCU team. Continue with supplemental oxygen and BiPap as needed. 3. NSTEMI. Input from Dr. Page noted. Continue with Aspirin 81 mg p.o. daily, Plavix 75 mg p.o. daily and Lipitor 40 mg p.o. daily. The patient will likely require cardiac catheterization when medically stabilized. 4. Acute systolic heart failure. Labs demonstrate a markedly elevated BNP. IV fluids placed on hold and the patient has been placed on Lasix 40 mg IV q. 12 hours. We will continue to monitor strict I&O's. 5. Septic shock, likely secondary to intra-abdominal source, improving. Input from Dr. Becker noted. Continue with current antimicrobials. 6. 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 Input from Dr. Guevara noted. MRI of the abdomen and pelvis pending for further evaluation. 7. LILIAN, etiology likely secondary to ATN, improving. Input from Dr. Madera noted. Continue to monitor strict I&O's, renally dose medications and avoid nephrotoxins. 8. Transaminitis, etiology likely secondary to shock liver in the setting of PEA arrest, resolving. 9. Acute fracture of the distal left fibula. Input from Dr. Hendrix noted and no need for acute surgical intervention. 10. Non-insulin dependent diabetes mellitus. Continue with insulin sliding scale for coverage. 11. Parkinson disease. Continue Stalevo 150 mg p.o. t.i.d. 12. Anemia of chronic disease. Continue to monitor CBC and transfuse as needed. 13. Hypertension. Antihypertensives remain on hold. Continue to monitor hemodynamics and adjust antihypertensives as needed. 14. History of gastric cancer s/p subtotal gastrectomy 15. History of chronic lymphocytic leukemia. 16. Prophylaxis. Continue Protonix for GI prophylaxis. Continue with Heparin for DVT prophylaxis. CODE STATUS: Full Code. Antonio Devi MD MTDRich
--- NOTE | 2018-05-04 11:37 | CP.PCM.PN ---
Subjective - Date & Time of Evaluation Date of Evaluation: 05/04/18 Time of Evaluation: 11:34 - Subjective Subjective: Nephrology Consultation Note: Assessment: critical Non-oliguric Acute Kidney Injury (N17.9) likely due to sepsis, hypotension, cardiac arrest leading to ATN: improving lactic acidosis, shock liver, sepsis shock, UTI, cardiac arrest and NSTEMI DM, HTN, carotid artery disease, CLL, gastric cancer, parkinson disease CKD 3 with E11.22 (diabetic kidney disease) and I12.9 (hypertensive kidney disease), age related decline sCHF with LVEF 47% hypocalcemia Hypernatremia Uetrine mass CAD s/p stent and cath 05/04/18 Plan No acute need for renal replacement therapy at this time. monitor renal function closely post contrast Maintain hemodynamics stable. Avoid hypotension. Patient not on ACEI/ARB due to recent LILIAN Monitor Input/Output, daily weights and renal function with basic metabolic panel supplement lytes as needed No ANGELO due to uterine mass. PRBC as needed. Dose meds/antibiotics for reduced GFR. Avoid fleets enema/magnesium based laxatives. Avoid nephrotoxins/NSAIDs/ iodinated contrast (unless needed emergently) Glycemic control Further work up/management as per primary team Thanks for allowing me to participate in care of your patient. Will follow patient with you. Please call if any Qs. had d/w team and family bedside Dr Gutierrez [place] Office: [phone] Chief Complaint; unable to obtain source of Info: EMR Reason for consult: Acute Kidney Injury HPI: Pt is a 88 F with hx of DM (years), HTN carotid artery disease, CLL, gastric cancer, parkinson disease CKD 3 with baseline cr 1.4 in 2018 presented with complaints of fall, ankle fracture, being managed for sepsis shock, UTI, cardiac arrest and NSTEMI. Denies OTC/herbal meds or NSAIDs No recent iodinated contrast exposure. Noted obvious episodes of low BP (SBP in 60s). renal consult for LILIAN. 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 intubated s/p coronary artery stent 05/04/18 Physical Examination: General Appearance: intubated Vitals reviewed and noted as below Head; Atraumatic, normocephalic ENT: orally intubated EYES: Pupils are equal, round Sclera is anicteric. Neck; supple no lymphadenopathy, no thyromegaly or bruit Lungs: Normal respiratory rate/effort. Breath sounds bilateral wheeze Heart: Normal rate. s1s2 normal. No rub or gallop. Extremities: 1+ edema. No varicose veins Neurological: Patient is sedated Skin: Warm and dry. Normal turgor. No rash. Palpitation: Normal elasticity for age Abdomen: Abdomen is soft. Bowel sounds +. There is no abdominal tenderness, no guarding/rigidity no organomegaly Psych: unable MSK: no joint tenderness or swelling. Digits and nails normal, no deformity : kidney or bladder not palpable. has klein Labs/imaging reviewed. Past medical history, past surgical history, family history, social history, allergy reviewed and noted as below Family hx: no hx of CKD. Rest non-contributory Objective - Vital Signs/Intake and Output Vital Signs (last 24 hours): Temp Pulse Resp BP Pulse Ox 99.1 F 90 27 H 87/27 L 99 05/04/18 07:00 05/04/18 10:05 05/04/18 09:21 05/04/18 10:10 05/04/18 10:05 Intake and Output: 05/04/18 05/04/18 06:59 18:59 Intake Total 450 Output Total 800 Balance -350 - Medications Medications: Current Medications Acetaminophen (Tylenol 325mg Tab) 650 mg PO Q6H PRN PRN Reason: Fever >100.4 F Last Admin: 04/28/18 01:29 Dose: 650 mg Albuterol/Ipratropium (Duoneb 3 Mg/0.5 Mg (3 Ml) Ud) 3 ml IH [id number] PRN PRN Reason: Shortness of Breath Last Admin: 05/04/18 02:01 Dose: 3 ml Arformoterol Tartrate (Brovana) 15 mcg IH [id number] [facility] Last Admin: 05/04/18 07:14 Dose: 15 mcg Aspirin (Aspirin Chewable) 81 mg PO DAILY [facility] [place] Last Admin: 05/03/18 09:24 Dose: 81 mg Atorvastatin Calcium (Lipitor) 40 mg PO DIN [facility] [place] Last Admin: 05/03/18 17:59 Dose: 40 mg Budesonide (Pulmicort Respules) 0.5 mg IH [id number] [facility] Last Admin: 05/04/18 07:14 Dose: 0.5 mg Carbidopa/Levodopa/Entacapone (Stalevo 150) 1 tab PO TID [facility] [place] Last Admin: 05/03/18 17:59 Dose: 1 tab Clopidogrel Bisulfate (Plavix) 75 mg PO DAILY [facility] [place] Last Admin: 05/03/18 09:25 Dose: 75 mg Dextrose (Dextrose 50% Inj) 0 ml IV STAT PRN; Protocol PRN Reason: Hypoglycemia Protocol Docusate Sodium (Colace) 100 mg PO BID [facility] [place] Last Admin: 05/03/18 18:16 Dose: 100 mg Furosemide (Lasix) 40 mg IVP Q12H [facility] [place] Last Admin: 05/04/18 08:31 Dose: 40 mg Heparin Sodium (Porcine) (Heparin) 5,000 units SC Q8 [facility]; Protocol Last Admin: 05/04/18 06:05 Dose: 5,000 units Aztreonam (Azactam 1 Gm) 100 mls @ 100 mls/hr IVPB Q8 [facility] [place]; Protocol Stop: 05/06/18 09:46 Last Admin: 05/04/18 06:05 Dose: 100 mls/hr Dextrose (Dextrose 5% In Water 1000 Ml) 1,000 mls @ 0 mls/hr IV .Q0M PRN; Protocol PRN Reason: Hypoglycemia Protocol Metronidazole (Flagyl) 500 mg in 100 mls @ 100 mls/hr IVPB Q8 STEVEN; Protocol Last Admin: 05/04/18 06:04 Dose: 100 mls/hr Milrinone Lactate/Dextrose (Primacor 20mg/100ml D5w) 100 mls @ 3.837 mls/hr IV .Q24H PRN; Protocol PRN Reason: TITRATE PER MD ORDER Last Admin: 05/04/18 09:05 Dose: 0.01 mcg/kg/min, 0.2 mls/hr Vancomycin HCl 2 gm/ Sodium (Chloride) 500 mls @ 170 mls/hr IVPB ONCE ONE; Protocol Stop: 05/04/18 12:29 Propofol (Diprivan) 1,000 mg in 100 mls @ 1.919 mls/hr IV .Q24H PRN; Protocol PRN Reason: TITRATE PER MD ORDER Last Admin: 05/04/18 10:46 Dose: 5 mcg/kg/min, 1.919 mls/hr Insulin Human Lispro (Humalog High) 0 units SC Q6 [facility]; Protocol Last Admin: 05/04/18 06:00 Dose: Not Given Lisinopril (Zestril) 10 mg PO DAILY [facility] [place] Last Admin: 04/29/18 10:25 Dose: Not Given Methylprednisolone (Solu-Medrol) 40 mg IVP Q12 [facility] Metoprolol Tartrate (Lopressor) 25 mg PO BID [facility] [place] Last Admin: 05/03/18 17:59 Dose: 25 mg Nicotine (Nicoderm Cq) 1 patch TD DAILY [facility] [place] Last Admin: 05/03/18 09:23 Dose: 1 patch Pantoprazole Sodium (Protonix Inj) 40 mg IVP DAILY [facility] [place] Last Admin: 05/03/18 09:23 Dose: 40 mg Zolpidem Tartrate (Ambien) 5 mg PO HS PRN; Protocol PRN Reason: Insomnia Last Admin: 04/28/18 22:12 Dose: 5 mg - Labs Labs: 05/04/18 07:00 05/04/18 07:00 PT 18.7 SECONDS (9.4-12.5) H 04/29/18 14:00 INR 1.68 04/29/18 14:00 APTT 38.9 Seconds (26.9-38.3) H 05/01/18 07:38
[2018-05-04] MEDS ORDERED: Sodium Chloride 0.9% 1,000 ML IV SCH (11:45)
[2018-05-04 12:05] LABS: ARTERIAL BLOOD GAS HCO3 18.3 mmol/L (21-28); ARTERIAL BLOOD GAS HEMOGLOBIN 7.2 g/dL (11.7-17.4); ARTERIAL BLOOD GAS O2 CAPACITY 10.1 mL/dl (16-24); ARTERIAL BLOOD GAS PCO2 34 mm/Hg (35-45); ARTERIAL BLOOD GAS PH 7.34 (7.35-7.45); ARTERIAL BLOOD GAS TCO2 19.3 mmol.L (22-28)
--- NOTE | 2018-05-04 12:06 | PN ---
DATE: 05/04/2018 SUBJECTIVE: The patient seen and examined at bedside. She is following some commands, but not all. She appears to be at times comfortable and sometimes in some respiratory discomfort. OBJECTIVE: VITAL SIGNS: Blood pressure 99, oxygen saturation 96% on 35% FIO2. The patient is on BiPAP 16/6 (IPAP was increased from 12, her tidal volume increased to 700 mL and respiratory rate went down as well). HEENT: Head and neck atraumatic. LUNGS: Few crackles, rhonchi and occasional wheezes bilaterally. HEART: Regular rate and rhythm. S1, S2 distant. ABDOMEN: Soft, nontender, nondistended. MUSCULOSKELETAL: 1+ bilateral pedal and ankle edema. NEUROLOGIC: The patient is seen, moves all extremities spontaneously. SKIN: Moist. PSYCHIATRIC: The patient alert and awake. Urine output overnight 800 mL/12hrs. LABORATORY DATA: WBC 30.8, hemoglobin 8.4, platelet count 261. Sodium 151, potassium 4.5, chloride 119, carbon dioxide 21, BUN 83, creatinine 2.1 (stable), glucose 209, AST 38, ALT 26, total bilirubin 0.4. Troponin 2.44 (down from 12.6). ProBNP 147,000. Blood gas 7.3, down from 7.35 (IPAP was increased from 12-16), pCO2 of 41, pO2 of 17. PTT 38.9. Microbiology, blood culture positive for bacteroides species and urine culture positive for E. coli MEDICATIONS: DuoNeb p.r.n., Brovana every 12 hours, aspirin, Lipitor, aztreonam, budesonide, carbidopa, levodopa, Plavix, Colace, Flagyl, Lasix 40 mg IV every. 12, heparin subcu, Solu-Medrol 40 mg IV every 12, metoprolol 25 mg p.o. b.i.d., nicotine patch, Protonix, Ambien p.r.n. Chest x-ray showed bilateral vascular congestion. ASSESSMENT: This is an 88-year-old lady recovering from septic shock complicated by PEA arrest in the setting of non-ST elevated myocardia infarction and left ventricular systolic dysfunction. At present time, it appears that systolic congestive heart failure exacerbation take over as a primary problem for the patient. We will continue with BiPAP for now, while increased IPAP. We will repeat arterial blood gas later on today. We will have low threshold for intubation. We will continue with aggressive diuresis, I will start the patient on low dose of Primacor as long as hemodynamics allows. The patient continues to be on antibiotics with Flagyl. I will touch base with the patient's family about advance directives again. Meanwhile, her renal function stabilized. She is making good urine and made 800 mL of urine overnight. We will maintain mean arterial pressure more than 65, avoid hyperchloremia, hypovolemia. We will maintain euglycemia and normothermia. We will maintain blood glucose within 140-180 range according to [employer] [facility]. The patient has blood culture positive for bacteroides and currently is being treated with Flagyl. ID service is on board as well. The patient will remain n.p.o. for now until intubation either performed or ruled out by family's decision. We will continue with DVT, GI prophylaxis. Head of bed elevated to more than 35 degrees. We will continue with bronchodilators small dose of steroids as the patient has some wheezing on auscultated exam of her lungs. GI prophylaxis. Addendum: Patient respiratory status deteriorated despite increasing IPAP from 12 to 18 cmH20 in increments, patient was emergently intubated-->patient was taken to rn cardiac cath and coronary angio performed by Dr. Page-->three coronary stents are placed. LVEDP, CI are WNL as per Dr. Page-->pressors and inotrops are weaned off. will proceed with sedation vacation and weaning trial, protective lung vent strategy, HOB>35, oral hygiene, conservatvie fluid and 02 management, dvt/gi prophylaxis ccm time 40 min Yonny Connell MD SARATH
--- NOTE | 2018-05-04 12:53 | CARD ---
APPROVED REPORT Date of service: 05/04/2018 EKG Measurement Heart [id number] <Conclusion> Sinus tachycardia with a single PAC Left axis deviation Intraventricular conduction delay of LBBB type. Poor R wave progression V1-4. Cannot exclude old AMI NDSTT abnormalities CCR Abnormal ECG
--- NOTE | 2018-05-04 13:12 | RAD ---
Date of service: 05/04/2018 HISTORY: confirm placement of ET tube COMPARISON: 05/04/2018 FINDINGS: LUNGS: The endotracheal tube and nasogastric tube are in satisfactory position. There is a patchy infiltrate in the right upper lobe as well as perihilar infiltrates or vascular congestion PLEURA: No significant pleural effusion identified, no pneumothorax apparent. CARDIOVASCULAR: No aortic atherosclerotic calcification present. Normal cardiac size. No pulmonary vascular congestion. OSSEOUS STRUCTURES: No significant abnormalities. VISUALIZED UPPER ABDOMEN: Normal. OTHER FINDINGS: None. IMPRESSION: The endotracheal tube and nasogastric tube are in satisfactory position. There is a patchy infiltrate in the right upper lobe as well as perihilar infiltrates or vascular congestion
--- NOTE | 2018-05-04 15:50 | CARDCATH ---
PROCEDURE DATE: 05/04/2018 HISTORY: The patient is an 88-year-old woman who progressively has become hypotensive with increasing doses of Levophed and Primacor. This morning, the patient became dyspneic and went into respiratory failure with low blood pressure consistent with cardiogenic shock. A code heart was called and the patient was brought to the laboratory machinist. Emergency cardiac catheterization with PTCA and stent of two vessels. The right femoral artery was cannulated with a 6-Greek sheath. There were no complications. The findings on catheterization revealed a left ventricle that contracted well. Estimated ejection fraction is 45% to 50%. Her coronary anatomy revealed a left dominant circulation. The LAD revealed diffuse atherosclerosis with an 80% in the proximal stenosis and a 90% in the mid to distal LAD at the takeoff of the diagonal vessel. The circumflex artery revealed an 80% stenosis in the obtuse marginal branch. The RCA, which was a nondominant vessel, revealed a 90% stenosis in its proximal portion. The patient was started on intravenous Integrilin as well as Angiomax under fluoroscopic guide. The guiding catheter was placed in the left main artery and 0.014 ATW wire was used to cross the critical lesion in the proximal LAD. The second lesion in the mid to distal LAD at the takeoff of bifurcation was markedly tortuous and could not be crossed despite multiple techniques. A bare-metal stent was used to stent the proximal LAD lesion. Repeat coronary arteriography revealed an excellent result. The wire was then brought back and placed in the circumflex obtuse marginal branch. Two bare-metal stents were placed in the circumflex obtuse marginal branch. The results were excellent. Repeat blood pressure off all pressors and inotropes revealed a blood pressure of 140 systolic with a cuff pressure of approximately 75 systolic. Marked discrepancy between central aortic pressure and upper arm pressures. The patient tolerated the procedure well. Manual compression will be needed to close the femoral artery site. In summary, the procedure was an emergency PTCA and stent in the proximal LAD and an obtuse marginal branch of the circumflex artery. Cardiac catheterization revealed severe triple-vessel CAD with preserved LV function. The mid to distal LAD 90% stenosis could not be crossed given the tortuosity at the takeoff of the diagonal vessel. The amount of contrast that would be needed would be too much given her baseline renal insufficiency. Given these findings, the patient's hemodynamics has improved off pressors and off ionotropic therapy. The patient will be sent back to the unit where diuresis would be appropriate given that her LVEDP is 20. Eddi Page MD
[2018-05-04 17:25] LABS: ARTERIAL BLOOD GAS HCO3 15.1 mmol/L (21-28); ARTERIAL BLOOD GAS O2 SAT 99.2 % (95-98); ARTERIAL BLOOD GAS PCO2 28 mm/Hg (35-45); ARTERIAL BLOOD GAS PH 7.34 (7.35-7.45)
[2018-05-04] MEDS: Carbidopa/Levodopa/Entacapone 37.5mg-150mg-200mg PO SCH ×2 (17:43→18:30)
[2018-05-04] MEDS: MethylPREDNISolone 40 mg Vial IVP SCH ×2 (17:50→22:57)
[2018-05-04] MEDS ORDERED: NOREPINEPHRINE BIT/0.9 % NACL 4 MG/250 ML BAG IV PRN (18:38)
[2018-05-04] MEDS ORDERED: Sodium Chloride 0.9% 500 ML IV STA (23:50)
[2018-05-04 23:51] LABS: HEMOGLOBIN 7.8 g/dL (12.0-16.0); MEAN CELL VOLUME 94.3 fl (80.0-105.0); MEAN CORPUSCULAR HEMOGLOBIN 29.9 pg (25.0-35.0); MEAN CORPUSCULAR HGB CONC 31.7 g/dl (31.0-37.0); MEAN PLATELET VOLUME 10.4 fl (7.0-11.0); RBC 2.61 10^6/uL (3.5-6.1); RED CELL DISTRIBUTION WIDTH 15.9 % (11.5-14.5)
[2018-05-05] MEDS: Insulin Lispro (HUMAlog) HIGH Coverage SC SCH ×5 (03:00→18:03)
--- NOTE | 2018-05-05 03:29 | OP ---
PROCEDURE DATE: 05/04/2018 PROCEDURE: Emergent endotracheal intubation. INDICATIONS: Inability to protect airways and worsening mental status. DESCRIPTION OF PROCEDURE: The patient was preoxygenated with 100% FiO2 via Ambu bag for about five minutes. One liter of normal saline wide open bolus was given, and norepinephrine at 5 mcg per minute was started in pre-intubation period. Vital signs were monitored every one minute. The patient was sedated with 70 mcg of propofol in increments for adequate sedation. Direct laryngoscopy was performed with MAC 3 curved blade. Vocal cords identified and trachea intubated with 7.5-Bhutanese endotracheal tube. ET Cuff was inflated. Stylet removed. Position confirmed with symmetrical bilateral lung auscultation and stomach auscultation. Position was confirmed with changing of the end-tidal CO2 gauge almost immediately. Oxygen saturation remained 100% throughout the procedure. Number of attempts 1. Chest x-ray confirmed correct position of the endotracheal tube. The patient tolerated the procedure well. Yonny Connell MD [facility]
--- NOTE | 2018-05-05 03:31 | OP ---
PROCEDURE DATE: 05/04/2018 PROCEDURE: Arterial line placement in the left femoral artery. DESCRIPTION OF THE PROCEDURE: After obtaining informed consent, operational area was sterilized. Maximum barrier precautions used. TO performed. Left common femoral artery was cannulated by sterile Seldinger technique under real-time ultrasound guidance. Guidewire removed. Hemostasis achieved. Sterile dressing applied. The patient tolerated the procedure well. Good waveform observed. Yonny Connell MD MT[facility]
[2018-05-05] MEDS: metroNIDAZOLE IV 500 mg/100 ml 500 MG/100 ML BAG IVPB SCH ×2 (05:51→17:20)
[2018-05-05] MEDS: Aztreonam 1 Gm in NS 100mL 100 ML IVPB SCH ×3 (05:52→22:00)
[2018-05-05 06:39] LABS: ARTERIAL BLOOD GAS HCO3 14.8 mmol/L (21-28); ARTERIAL BLOOD GAS HEMOGLOBIN 7.3 g/dL (11.7-17.4); ARTERIAL BLOOD GAS O2 CAPACITY 10.5 mL/dl (16-24); ARTERIAL BLOOD GAS O2 CONTENT 10.4 ML/dl (15-23); ARTERIAL BLOOD GAS O2 SAT 98.9 % (95-98); ARTERIAL BLOOD GAS PCO2 28 mm/Hg (35-45); ARTERIAL BLOOD GAS PH 7.33 (7.35-7.45); ARTERIAL BLOOD GAS TCO2 15.7 mmol.L (22-28)
[2018-05-05 07:07] LABS: BASO # 0.01 K/mm3 (0.0-2.0); LYMPH % 16.9 % (22.0-35.0); MEAN CELL VOLUME 93.4 fl (80.0-105.0); MEAN CORPUSCULAR HEMOGLOBIN 30.3 pg (25.0-35.0); MEAN CORPUSCULAR HGB CONC 32.4 g/dl (31.0-37.0); MEAN PLATELET VOLUME 10.2 fl (7.0-11.0); MONO # 0.5 (0.1-0.6); RBC 2.28 10^6/uL (3.5-6.1); RED CELL DISTRIBUTION WIDTH 15.7 % (11.5-14.5); WHITE BLOOD COUNT 23.4 10^3/uL (4.5-11.0)
[2018-05-05] MEDS: Arformoterol 15 mcg/2 ml Inh Sol IH SCH (07:40)
[2018-05-05] MEDS: Budesonide 0.5 mg/2 ml Inhal Susp UD IH SCH (07:40)
[2018-05-05 07:45] LABS: HEMOGLOBIN 6.9 g/dL (12.0-16.0)
[2018-05-05 08:14] LABS: ALB/GLOB RATIO 0.9 (1.1-1.8); CALCIUM 6.8 mg/dL (8.4-10.5)
--- NOTE | 2018-05-05 09:03 | RAD ---
Date of service: 05/05/2018 PROCEDURE: Portable chest HISTORY: f/u COMPARISON: 05/04/2018 TECHNIQUE: FINDINGS: There improvement in the vascular congestion and perihilar infiltrates. There is a new left-sided PICC line that terminates at the junction of the SVC and right atrium. The endotracheal and nasogastric tubes are unchanged. Aortic calcification IMPRESSION: Improved vascular congestion and perihilar infiltrates
[2018-05-05] MEDS: Dexmedetomidine 400mcg/100mL 400 MCG/100 ML BOTTLE IV PRN ×2 (09:35→16:04)
[2018-05-05] MEDS ORDERED: Sodium Bicarbonate (8.4%) 50 Meq Syringe IVP ONE ×2 (09:35→10:04)
[2018-05-05] MEDS ORDERED: Digoxin 500 mcg/2ml (0.5 mg/2ml) Inj IVP ONE (09:40)
[2018-05-05 09:48] VITALS: PULSE 147
[2018-05-05] MEDS: MethylPREDNISolone 40 mg Vial IVP SCH ×2 (10:02→22:00)
[2018-05-05] MEDS: Carbidopa/Levodopa/Entacapone 37.5mg-150mg-200mg PO SCH ×2 (10:04→17:25)
--- NOTE | 2018-05-05 10:09 | PN ---
SUBJECTIVE: The patient was seen and examined at bedside in the CCU. She is s/p cardiac catheterization which demonstrated severe triple vessel CAD with preserved LV function and s/p BMS stent placement to the proximal LAD lesion and circumflex obtuse marginal branch. The patient tolerated the procedure well with no postprocedure complications noted and was transferred back to the CCU for continued care. This morning she remains intubated, sedated and clinically unchanged. OBJECTIVE: VITAL SIGNS: Temperature 98.8, pulse 92, blood pressure 102/47, respiratory rate 20, oxygen saturation 100% on 40% FIO2. GENERAL: Intubated and sedated. HEENT: PERRL. No scleral icterus. Conjunctival pallor is noted. ETT in place. NECK: No JVD. LUNGS: Coarse anterior breath sounds with scattered rhonchi. CARDIOVASCULAR: Regular rate and rhythm. Normal S1, S2. Grade II/ KERMIT to LLSB. ABDOMEN: Normoactive bowel sounds. Soft and nondistended. EXTREMITIES: Left ankle with River wrapping in place. NEUROLOGIC: Intubated and sedated. LABORATORY DATA: WBC 23.4 with 81% neutrophils, hemoglobin 6.9, hematocrit 21, platelets 270. Sodium 151, potassium 3.6, chloride 122, bicarb 16, BUN 97, creatinine 2.3, glucose 281. Blood cultures (05/01/18) with bacteroides species. Blood cultures (05/04/18) with no growth to date. Urine culture with E. coli and sensitivities noted. ASSESSMENT: The patient is an 88-year-old woman with a past medical history of Parkinson disease with recurrent falls who was initially admitted to the general medical gurrola s/p mechanical fall with resultant left ankle fracture whose hospital course was complicated by NSTEMI with PEA arrest and was subsequently transferred to the CCU for continued care. PLAN: 1. s/p PEA arrest. The patient has been re-intubated s/p cardiac catheterization. Continue with care as per CCU team. Continue with post- procedure care as per Dr. Page. 2. Acute hypoxic respiratory failure s/p reintubation. Input from Dr. Aguilar noted. Continue with care as per CCU team. 3. NSTEMI s/p PCI with multiple stent placement. Input from Dr. Page noted. Continue Aspirin 81 mg p.o. daily, Plavix 75 mg p.o. daily and Lipitor 40 mg p.o. daily. 4. Acute systolic heart failure, resolved. Cardiac catheterization demonstrated preserved EF. The patient has been placed on Milrinone. Continue with care as per Dr. Page. 5. Septic shock, likely secondary to intra-abdominal source, improving. Input from Dr. Becker noted. Continue with current antimicrobials. 6. 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 Input from Dr. Guevara noted. Recommendations were made for MRI of the abdomen for further evaluation. 7. LILIAN, etiology likely secondary to ATN, improving. Input from Dr. Madera noted. Continue to monitor strict I&O's, renally dose medications and avoid nephrotoxins. 8. Anemia of chronic disease. Labs demonstrate hemoglobin of 6.9. We will transfuse 2 units of PRBCs. 9. Transaminitis, etiology likely secondary shock liver in the setting of PEA arrest, resolving. 10. Acute fracture of the distal left fibula. Input from Dr. Hendrix noted and no need for acute surgical intervention. 11. Non-insulin dependent diabetes mellitus. Continue with insulinsliding scale for coverage. 12. Parkinson disease. Continues Stalevo 150 mg p.o. t.i.d. 13. Hypertension. Antihypertensives remain on hold. We will continue monitor hemodynamics and adjust as needed. 14. History of gastric cancer s/p subtotal gastrectomy. 15. History of chronic lymphocytic leukemia. 16. Prophylaxis. Continue Protonix for GI prophylaxis and Heparin for DVT prophylaxis. CODE STATUS: Full code. Antonio Devi MD MTDD
--- NOTE | 2018-05-05 11:58 | CARD ---
APPROVED REPORT Date of service: 05/04/2018 EKG Measurement Heart [id number] <Conclusion> Supraventricular tachycardia Left axis deviation Anteroseptal infarct, age undetermined Nonspecific ST & T wave changes Abnormal ECG
--- NOTE | 2018-05-05 12:34 | CP.PCM.PN ---
Subjective - Date & Time of Evaluation Date of Evaluation: 05/05/18 Time of Evaluation: 12:33 - Subjective Subjective: Nephrology Consultation Note: Assessment: critical Non-oliguric Acute Kidney Injury (N17.9) likely due to sepsis, hypotension, cardiac arrest leading to ATN: improving lactic acidosis, shock liver, sepsis shock, UTI, cardiac arrest and NSTEMI DM, HTN, carotid artery disease, CLL, gastric cancer, parkinson disease CKD 3 with E11.22 (diabetic kidney disease) and I12.9 (hypertensive kidney disease), age related decline sCHF with LVEF 47% hypocalcemia Hypernatremia Uetrine mass CAD s/p stent and cath 05/04/18 Plan No acute need for renal replacement therapy at this time. monitor renal function closely post contrast Maintain hemodynamics stable. Avoid hypotension. Patient not on ACEI/ARB due to recent LILIAN Monitor Input/Output, daily weights and renal function with basic metabolic panel supplement lytes as needed No ANGELO due to uterine mass. PRBC as needed. hold lasix and consider 0.45% saline @ 50-75 ml/hr started bicarb supplements Dose meds/antibiotics for reduced GFR. Avoid fleets enema/magnesium based laxatives. Avoid nephrotoxins/NSAIDs/ iodinated contrast (unless needed emergently) Glycemic control Further work up/management as per primary team Thanks for allowing me to participate in care of your patient. Will follow patient with you. Please call if any Qs. had d/w team and family bedside Dr Gutierrez [place] Office: [phone] Chief Complaint; unable to obtain source of Info: EMR Reason for consult: Acute Kidney Injury HPI: Pt is a 88 F with hx of DM (years), HTN carotid artery disease, CLL, gastric cancer, parkinson disease CKD 3 with baseline cr 1.4 in 2018 presented with complaints of fall, ankle fracture, being managed for sepsis shock, UTI, cardiac arrest and NSTEMI. Denies OTC/herbal meds or NSAIDs No recent iodinated contrast exposure. Noted obvious episodes of low BP (SBP in 60s). renal consult for LILIAN. family not aware of renal disease in past ROS:intubated sedated s/p coronary artery stent 05/04/18 Physical Examination: General Appearance: intubated Vitals reviewed and noted as below Head; Atraumatic, normocephalic ENT: orally intubated EYES: Pupils are equal, round Sclera is anicteric. Neck; supple no lymphadenopathy, no thyromegaly or bruit Lungs: Normal respiratory rate/effort. Breath sounds bilateral reduced at bases Heart: Normal rate. s1s2 normal. No rub or gallop. Extremities: 1+ edema. No varicose veins Neurological: Patient is sedated Skin: Warm and dry. Normal turgor. No rash. Palpitation: Normal elasticity for age Abdomen: Abdomen is soft. Bowel sounds +. There is no abdominal tenderness, no guarding/rigidity no organomegaly Psych: unable MSK: no joint tenderness or swelling. Digits and nails normal, no deformity : kidney or bladder not palpable. has klein Labs/imaging reviewed. Past medical history, past surgical history, family history, social history, allergy reviewed and noted as below Family hx: no hx of CKD. Rest non-contributory Objective - Vital Signs/Intake and Output Vital Signs (last 24 hours): Temp Pulse Resp BP Pulse Ox 98.0 F 128 H 20 85/40 L 100 05/05/18 12:00 05/05/18 12:00 05/05/18 12:00 05/05/18 12:00 05/05/18 10:00 Intake and Output: 05/05/18 05/05/18 06:59 18:59 Intake Total 30 197 Balance 30 197 - Medications Medications: Current Medications Acetaminophen (Tylenol 325mg Tab) 650 mg PO Q6H PRN PRN Reason: Fever >100.4 F Last Admin: 04/28/18 01:29 Dose: 650 mg Albuterol/Ipratropium (Duoneb 3 Mg/0.5 Mg (3 Ml) Ud) 3 ml IH [id number] PRN PRN Reason: Shortness of Breath Last Admin: 05/04/18 21:15 Dose: 3 ml Arformoterol Tartrate (Brovana) 15 mcg IH [id number] [facility] Last Admin: 05/05/18 07:40 Dose: 15 mcg Aspirin (Ecotrin) 81 mg PO DAILY [facility] Last Admin: 05/05/18 10:03 Dose: 81 mg Atorvastatin Calcium (Lipitor) 40 mg PO DIN [facility] Last Admin: 05/04/18 17:50 Dose: 40 mg Budesonide (Pulmicort Respules) 0.5 mg IH [id number] [facility] Last Admin: 05/05/18 07:40 Dose: 0.5 mg Carbidopa/Levodopa/Entacapone (Stalevo 150) 1 tab PO TID [facility] Last Admin: 05/05/18 10:04 Dose: Not Given Clopidogrel Bisulfate (Plavix) 75 mg PO DAILY [facility] Last Admin: 05/05/18 10:03 Dose: 75 mg Dextrose (Dextrose 50% Inj) 0 ml IV STAT PRN; Protocol PRN Reason: Hypoglycemia Protocol Docusate Sodium (Colace) 100 mg PO BID [facility] Last Admin: 05/05/18 10:03 Dose: Not Given Furosemide (Lasix) 40 mg IVP Q12H [facility] Last Admin: 05/05/18 10:04 Dose: Not Given Heparin Sodium (Porcine) (Heparin) 5,000 units SC Q8 [facility]; Protocol Last Admin: 05/05/18 05:52 Dose: 5,000 units Aztreonam (Azactam 1 Gm) 100 mls @ 100 mls/hr IVPB Q8 [facility]; Protocol Stop: 05/06/18 09:46 Last Admin: 05/05/18 05:52 Dose: 100 mls/hr Dextrose (Dextrose 5% In Water 1000 Ml) 1,000 mls @ 0 mls/hr IV .Q0M PRN; Protocol PRN Reason: Hypoglycemia Protocol Metronidazole (Flagyl) 500 mg in 100 mls @ 100 mls/hr IVPB Q8 [facility]; Protocol Last Admin: 05/05/18 05:51 Dose: 100 mls/hr Milrinone Lactate/Dextrose (Primacor 20mg/100ml D5w) 100 mls @ 3.837 mls/hr IV .Q24H PRN; Protocol PRN Reason: TITRATE PER MD ORDER Last Admin: 05/04/18 09:05 Dose: 0.01 mcg/kg/min, 0.2 mls/hr Propofol (Diprivan) 1,000 mg in 100 mls @ 1.919 mls/hr IV .Q24H PRN; Protocol PRN Reason: TITRATE PER MD ORDER Last Titration: 05/05/18 09:37 Dose: 0 mcg/kg/min, 0 mls/hr NOREPINEPHRINE BIT/0.9 % NACL (Levophed 4 Mg/ 250 Ml Ns Premixed) 4 mg in 250 mls @ 15 mls/hr IV .[id number] PRN; Protocol PRN Reason: TITRATE PER MD ORDER Last Titration: 05/05/18 12:03 Dose: 2 mcg/min, 7.5 mls/hr Dexmedetomidine HCl (Precedex 400mcg/100ml) 400 mcg in 100 mls @ 3.198 mls/hr IV .Q24H PRN; Protocol PRN Reason: Agitation Last Titration: 05/05/18 09:50 Dose: 0.7 mcg/kg/hr, 11.192 mls/hr Insulin Human Lispro (Humalog High) 0 units SC Q6 [facility]; Protocol Last Admin: 05/05/18 09:39 Dose: 10 units Methylprednisolone (Solu-Medrol) 40 mg IVP Q12 [facility] Last Admin: 05/05/18 10:02 Dose: 40 mg Nicotine (Nicoderm Cq) 1 patch TD DAILY [facility] Last Admin: 05/05/18 10:03 Dose: 1 patch Pantoprazole Sodium (Protonix Inj) 40 mg IVP DAILY [facility] Last Admin: 05/05/18 10:02 Dose: 40 mg Sodium Bicarbonate (Sodium Bicarbonate Tab) 1,300 mg PO BID [facility] Stop: 05/10/18 10:01 Last Admin: 05/05/18 10:03 Dose: 1,300 mg - Labs Labs: 05/05/18 06:15 05/05/18 06:15 PT 18.7 SECONDS (9.4-12.5) H 04/29/18 14:00 INR 1.68 04/29/18 14:00 APTT 38.9 Seconds (26.9-38.3) H 05/01/18 07:38
--- NOTE | 2018-05-05 13:23 | PN ---
DATE: 05/05/2018(705am-465am) PULMONARY NOTE SUBJECTIVE: The patient remains in the ICU. She is now on the ventilator and sedated. PHYSICAL EXAMINATION: VITAL SIGNS: Temperature is 98.8, pulse 92, respiratory rate 20/14, blood pressure 99/37. HEENT: Normocephalic, atraumatic. No JVD. CARDIOVASCULAR: Systolic ejection murmur at the lower left sternal border. Questionable S3 gallop. LUNGS: Minimal crackles at the bases. Very minimal rhonchi. No wheezing. GI: Abdomen is soft, nondistended. Bowel sounds are positive. EXTREMITIES: No clubbing, cyanosis or edema. SKIN: No acute rash. NEUROLOGIC: Exam limited at the present time. PERTINENT LABORATORY DATA: Chest x-ray was done this morning and reviewed. There appears to be less pulmonary vascular congestion - compared to the film done late yesterday morning. Arterial blood gas was done on PRVC 14, tidal volume 400, FIO2 of 50%. Results are: PH 7.33, pCO2 28, pO2 of 180. IMPRESSION: 1. Respiratory failure. 2. Status post code blue. 3. Acute myocardial infarction. 4. Acute congestive heart failure. 5. Chronic obstructive pulmonary disease. 6. Anemia. 7. Multivessel coronary artery disease. PLAN: The patient remains in the ICU. She is currently on the ventilator and sedated. I did discuss the case with the night nurse at length. Apparently, the patient was intubated yesterday for progressive respiratory insufficiency. I did review the chest x-ray as above. The chest x-ray actually shows less pulmonary vascular congestion - compared to the film done late yesterday morning. I have also reviewed the arterial blood gas. A mild metabolic acidosis is noted. There is no significant alveolar-arterial gradient. I have also reviewed the note by Dr. Page (Cardiology). The patient is status post emergent PTCA and stenting of the proximal left anterior descending artery. Inputs by Renal and Infectious Disease also noted. The patient remains critically ill with very, very guarded prognosis. I will discuss the above with the entire ICU team in the next few moments. I will also discuss the above with the attending physician later this morning. Burton Karpman, MD [facility] # [id number] MTDD
--- NOTE | 2018-05-05 13:43 | PN ---
DATE: 05/05/2018 SUBJECTIVE: The patient remains on a ventilator. OBJECTIVE: VITAL SIGNS: Blood pressure is fluctuating currently at 102/43, heart rate is in the 110. NECK: Negative JVD. LUNGS: No rales noted. HEART: Reveal S1, S2. EXTREMITIES: The right groin site is stable. LABORATORY DATA: Hemoglobin is 6.9, BUN and creatinine is 97 and 2.3. IMPRESSION: 1. Cardiogenic shock. 2. Status post multivessel percutaneous transluminal coronary angioplasty and stent. 3. Marked anemia. 4. Renal insufficiency. 5. Diabetes mellitus. 6. Fluctuating blood pressures. Given these findings, we will continue hemodynamic support with inotropes if necessary, packed red blood cells should be given. Eddi aPge MD
--- NOTE | 2018-05-05 13:54 | CP.PCM.PN ---
<Henry Wilkins - Last Filed: 05/05/18 13:54> Subjective - Date & Time of Evaluation Date of Evaluation: 05/05/18 Time of Evaluation: 07:00 - Subjective Subjective: Infectious disease progress note: Patient seen and examined at bedside. Patient is currently intubated and sedated with Precedex. On pressors. 12 point ROS unobtainable 2/2 intubation Objective - Vital Signs/Intake and Output Vital Signs (last 24 hours): Temp Pulse Resp BP Pulse Ox 98.0 F 137 H 20 104/52 L 100 05/05/18 12:00 05/05/18 13:15 05/05/18 12:00 05/05/18 13:15 05/05/18 13:15 Intake and Output: 05/05/18 05/05/18 06:59 18:59 Intake Total 30 197 Balance 30 197 - Medications Medications: Current Medications Acetaminophen (Tylenol 325mg Tab) 650 mg PO Q6H PRN PRN Reason: Fever >100.4 F Last Admin: 04/28/18 01:29 Dose: 650 mg Albuterol/Ipratropium (Duoneb 3 Mg/0.5 Mg (3 Ml) Ud) 3 ml IH [id number] PRN PRN Reason: Shortness of Breath Last Admin: 05/04/18 21:15 Dose: 3 ml Arformoterol Tartrate (Brovana) 15 mcg IH [id number] [facility] Last Admin: 05/05/18 07:40 Dose: 15 mcg Aspirin (Ecotrin) 81 mg PO DAILY [facility] Last Admin: 05/05/18 10:03 Dose: 81 mg Atorvastatin Calcium (Lipitor) 40 mg PO DIN [facility] Last Admin: 05/04/18 17:50 Dose: 40 mg Budesonide (Pulmicort Respules) 0.5 mg IH [id number] [facility] Last Admin: 05/05/18 07:40 Dose: 0.5 mg Carbidopa/Levodopa/Entacapone (Stalevo 150) 1 tab PO TID [facility] Last Admin: 05/05/18 10:04 Dose: Not Given Clopidogrel Bisulfate (Plavix) 75 mg PO DAILY [facility] Last Admin: 05/05/18 10:03 Dose: 75 mg Dextrose (Dextrose 50% Inj) 0 ml IV STAT PRN; Protocol PRN Reason: Hypoglycemia Protocol Docusate Sodium (Colace) 100 mg PO BID [facility] Last Admin: 05/05/18 10:03 Dose: Not Given Furosemide (Lasix) 40 mg IVP Q12H [facility] Last Admin: 05/05/18 10:04 Dose: Not Given Heparin Sodium (Porcine) (Heparin) 5,000 units SC Q8 [facility]; Protocol Last Admin: 05/05/18 05:52 Dose: 5,000 units Aztreonam (Azactam 1 Gm) 100 mls @ 100 mls/hr IVPB Q8 [facility]; Protocol Stop: 05/06/18 09:46 Last Admin: 05/05/18 05:52 Dose: 100 mls/hr Dextrose (Dextrose 5% In Water 1000 Ml) 1,000 mls @ 0 mls/hr IV .Q0M PRN; Protocol PRN Reason: Hypoglycemia Protocol Metronidazole (Flagyl) 500 mg in 100 mls @ 100 mls/hr IVPB Q8 [facility]; Protocol Last Admin: 05/05/18 05:51 Dose: 100 mls/hr Milrinone Lactate/Dextrose (Primacor 20mg/100ml D5w) 100 mls @ 3.837 mls/hr IV .Q24H PRN; Protocol PRN Reason: TITRATE PER MD ORDER Last Admin: 05/04/18 09:05 Dose: 0.01 mcg/kg/min, 0.2 mls/hr Propofol (Diprivan) 1,000 mg in 100 mls @ 1.919 mls/hr IV .Q24H PRN; Protocol PRN Reason: TITRATE PER MD ORDER Last Titration: 05/05/18 09:37 Dose: 0 mcg/kg/min, 0 mls/hr NOREPINEPHRINE BIT/0.9 % NACL (Levophed 4 Mg/ 250 Ml Ns Premixed) 4 mg in 250 mls @ 15 mls/hr IV .[id number] PRN; Protocol PRN Reason: TITRATE PER MD ORDER Last Titration: 05/05/18 12:03 Dose: 2 mcg/min, 7.5 mls/hr Dexmedetomidine HCl (Precedex 400mcg/100ml) 400 mcg in 100 mls @ 3.198 mls/hr IV .Q24H PRN; Protocol PRN Reason: Agitation Last Titration: 05/05/18 09:50 Dose: 0.7 mcg/kg/hr, 11.192 mls/hr Insulin Human Lispro (Humalog High) 0 units SC Q6 [facility]; Protocol Last Admin: 05/05/18 09:39 Dose: 10 units Methylprednisolone (Solu-Medrol) 40 mg IVP Q12 [facility] Last Admin: 05/05/18 10:02 Dose: 40 mg Nicotine (Nicoderm Cq) 1 patch TD DAILY [facility] Last Admin: 05/05/18 10:03 Dose: 1 patch Pantoprazole Sodium (Protonix Inj) 40 mg IVP DAILY [facility] Last Admin: 05/05/18 10:02 Dose: 40 mg Sodium Bicarbonate (Sodium Bicarbonate Tab) 1,300 mg PO BID [facility] Stop: 05/10/18 10:01 Last Admin: 05/05/18 10:03 Dose: 1,300 mg - Labs Labs: 05/05/18 06:15 05/05/18 06:15 PT 18.7 SECONDS (9.4-12.5) H 04/29/18 14:00 INR 1.68 04/29/18 14:00 APTT 38.9 Seconds (26.9-38.3) H 05/01/18 07:38 - Constitutional Appears: No Acute Distress - Head Exam Head Exam: ATRAUMATIC, NORMOCEPHALIC - Eye Exam Eye Exam: EOMI - ENT Exam ENT Exam: Mucous Membranes Moist - Respiratory Exam Respiratory Exam: Clear to Ausculation Bilateral. absent: Rales, Wheezes - Cardiovascular Exam Cardiovascular Exam: Tachycardia, REGULAR RHYTHM, +S1, +S2 - GI/Abdominal Exam GI & Abdominal Exam: Soft. absent: Tenderness - Neurological Exam Neurological Exam: absent: Awake - Skin Skin Exam: Dry, Warm Assessment and Plan - Assessment and Plan (Free Text) Assessment: 88-year-old female with past medical history of hypertension, diabetes, Parkinson's, CAD, CLL presents with SIRS with fevers and leukocytosis, VDRF, R/O sepsis in this patient S/P cardiac arrest, with left leg fracture. Patient developed resp distress overnight and was intubated. Code heart called. Cardiac Catheterization was performed with 2 stent placement. WBCs decreased to 23 today Continue abx with Azactam and flagyl Urine culture shows E. coli, and blood cultures 2/ show Bacteroides; repeat bl ood cx were neg thus far f/u cardiology, and ICU recs Continue to monitor for any changes. Case and plan was reviewed and discussed with Dr. Becker. <Hammad Becker - Last Filed: 05/05/18 15:24> Objective - Vital Signs/Intake and Output Vital Signs (last 24 hours): Temp Pulse Resp BP Pulse Ox 98.1 F 112 H 21 106/67 100 05/05/18 14:33 05/05/18 14:33 05/05/18 14:33 05/05/18 14:33 05/05/18 13:15 Intake and Output: 05/05/18 05/05/18 06:59 18:59 Intake Total 30 522 Balance 30 522 - Medications Medications: Current Medications Acetaminophen (Tylenol 325mg Tab) 650 mg PO Q6H PRN PRN Reason: Fever >100.4 F Last Admin: 04/28/18 01:29 Dose: 650 mg Albuterol/Ipratropium (Duoneb 3 Mg/0.5 Mg (3 Ml) Ud) 3 ml IH [id number] PRN PRN Reason: Shortness of Breath Last Admin: 05/04/18 21:15 Dose: 3 ml Arformoterol Tartrate (Brovana) 15 mcg IH [id number] [facility] Last Admin: 05/05/18 07:40 Dose: 15 mcg Aspirin (Ecotrin) 81 mg PO DAILY [facility] Last Admin: 05/05/18 10:03 Dose: 81 mg Atorvastatin Calcium (Lipitor) 40 mg PO DIN [facility] Last Admin: 05/04/18 17:50 Dose: 40 mg Budesonide (Pulmicort Respules) 0.5 mg IH [id number] [facility] Last Admin: 05/05/18 07:40 Dose: 0.5 mg Carbidopa/Levodopa/Entacapone (Stalevo 150) 1 tab PO TID [facility] Last Admin: 05/05/18 10:04 Dose: Not Given Clopidogrel Bisulfate (Plavix) 75 mg PO DAILY [facility] Last Admin: 05/05/18 10:03 Dose: 75 mg Dextrose (Dextrose 50% Inj) 0 ml IV STAT PRN; Protocol PRN Reason: Hypoglycemia Protocol Docusate Sodium (Colace) 100 mg PO BID [facility] Last Admin: 05/05/18 10:03 Dose: Not Given Furosemide (Lasix) 40 mg IVP Q12H [facility] Last Admin: 05/05/18 10:04 Dose: Not Given Heparin Sodium (Porcine) (Heparin) 5,000 units SC Q8 [facility]; Protocol Last Admin: 05/05/18 05:52 Dose: 5,000 units Aztreonam (Azactam 1 Gm) 100 mls @ 100 mls/hr IVPB Q8 [facility]; Protocol Stop: 05/06/18 09:46 Last Admin: 05/05/18 05:52 Dose: 100 mls/hr Dextrose (Dextrose 5% In Water 1000 Ml) 1,000 mls @ 0 mls/hr IV .Q0M PRN; Protocol PRN Reason: Hypoglycemia Protocol Metronidazole (Flagyl) 500 mg in 100 mls @ 100 mls/hr IVPB Q8 [facility]; Protocol Last Admin: 05/05/18 05:51 Dose: 100 mls/hr Milrinone Lactate/Dextrose (Primacor 20mg/100ml D5w) 100 mls @ 3.837 mls/hr IV .Q24H PRN; Protocol PRN Reason: TITRATE PER MD ORDER Last Admin: 05/04/18 09:05 Dose: 0.01 mcg/kg/min, 0.2 mls/hr Propofol (Diprivan) 1,000 mg in 100 mls @ 1.919 mls/hr IV .Q24H PRN; Protocol PRN Reason: TITRATE PER MD ORDER Last Titration: 05/05/18 09:37 Dose: 0 mcg/kg/min, 0 mls/hr NOREPINEPHRINE BIT/0.9 % NACL (Levophed 4 Mg/ 250 Ml Ns Premixed) 4 mg in 250 mls @ 15 mls/hr IV .[id number] PRN; Protocol PRN Reason: TITRATE PER MD ORDER Last Titration: 05/05/18 12:03 Dose: 2 mcg/min, 7.5 mls/hr Dexmedetomidine HCl (Precedex 400mcg/100ml) 400 mcg in 100 mls @ 3.198 mls/hr IV .Q24H PRN; Protocol PRN Reason: Agitation Last Titration: 05/05/18 09:50 Dose: 0.7 mcg/kg/hr, 11.192 mls/hr Insulin Human Lispro (Humalog High) 0 units SC Q6 [facility]; Protocol Last Admin: 05/05/18 09:39 Dose: 10 units Methylprednisolone (Solu-Medrol) 40 mg IVP Q12 [facility] Last Admin: 05/05/18 10:02 Dose: 40 mg Nicotine (Nicoderm Cq) 1 patch TD DAILY [facility] Last Admin: 05/05/18 10:03 Dose: 1 patch Pantoprazole Sodium (Protonix Inj) 40 mg IVP DAILY [facility] Last Admin: 05/05/18 10:02 Dose: 40 mg Sodium Bicarbonate (Sodium Bicarbonate Tab) 1,300 mg PO BID [facility] Stop: 05/10/18 10:01 Last Admin: 05/05/18 10:03 Dose: 1,300 mg - Labs Labs: 05/05/18 06:15 05/05/18 06:15 PT 18.7 SECONDS (9.4-12.5) H 04/29/18 14:00 INR 1.68 04/29/18 14:00 APTT 38.9 Seconds (26.9-38.3) H 05/01/18 07:38 Assessment and Plan - Assessment and Plan (Free Text) Assessment: Infectious diseases Attending Physician Attestation Patient seen and examined, discussed with medical education manager. I have reviewed the patient's history of present illness, past medical, social, personal and family histories, pertinent physical exam findings, course so far in this hospital admission, pertinent laboratory and imaging results. I agree with the above findings, assessment and plan. In addition, continue Azactam, Flagyl and has been given intermittent doses of IV Vancomycin for patient with severe sepsis with Bacteroides bacteremia, R/O intra-abdominal infection. On CT A/P, gas was noted around the uterus and Sommelier is on-board evaluating. Discussed with ICU team and would suggest surgical evaluation. MRI pelvis has been ordered for further imaging. Patient continues to be on the ventilator and went for cardiac cath yesterday, found to have multivessel disease with NSTEMI and stents were placed. Follow up further recommendations of Cardiology. Overall prognosis is poor. Repeat blood are now negative.
--- NOTE | 2018-05-05 14:01 | CP.CCUPN ---
<Sandee Huang - Last Filed: 05/05/18 16:10> CCU Subjective - Physician Review Subjective (Free Text): Sandee Huang, PGY-1, ICU Progress Note for Dr. Connell Patient seen and evaluated at bedside. Patient currently intubated and sedated. Patient was started on levophed overnight and had no acute events overnight. 12- point ROS was unattainable due to intubation status. CCU Objective - Vital Signs / Intake & Output Vital Signs (Last 4 hours): Vital Signs Temp Pulse Resp BP Pulse Ox 05/05/18 13:15 137 H 104/52 L 100 05/05/18 13:00 136 H 109/49 L 100 05/05/18 12:45 135 H 100/50 L 100 05/05/18 12:30 134 H 97/47 L 100 05/05/18 12:21 134 H 94/45 L 100 05/05/18 12:00 98.0 F 128 H 20 85/40 L 100 05/05/18 11:51 98.0 F 126 H 20 81/39 L 05/05/18 11:40 127 H 81/39 L 100 05/05/18 11:33 127 H 78/34 L 100 05/05/18 11:32 98.4 F 127 H 14 68/32 L 05/05/18 11:30 127 H 68/32 L 100 05/05/18 11:06 129 H 95/41 L 100 05/05/18 11:00 129 H 82/39 L 100 05/05/18 10:00 138 H 130/59 L 100 Intake and Output (Last 8hrs): Intake & Output 05/04/18 05/05/18 05/05/18 22:59 06:59 14:59 Intake Total 2675 30 197 Output Total 750 Balance 1925 30 197 Intake: IV 2675 30 197 Left External Jugular 2575 Oral 0 Blood Product 0 Red Blood Cells Cpd As1 0 Lr Unit [id number] Output: Urine 750 Urethral (Masters) 750 Other: # Bowel Movements 0 - Physical Exam Head: Positive for: Atraumatic, Normocephalic Pupils: Positive for: PERRL Extroacular Muscles: Positive for: EOMI Mouth: Positive for: Dry Neck: Positive for: Normal Range of Motion Respiratory/Chest: Positive for: Wheezes. Negative for: Respiratory Distress, Accessory Muscle Use Cardiovascular: Positive for: Regular Rate and Rhythm, Normal S1, S2. Negative for: Murmurs Abdomen: Negative for: Tenderness, Distention, Peritoneal Signs Upper Extremity: Positive for: NORMAL PULSES, Other (severe edema of right hand). Negative for: Cyanosis, Edema, Normal ROM (more movement of left upper extremity than right upper extremity), Tenderness, Swelling Lower Extremity: Positive for: Edema (left ankle), NORMAL PULSES, Tenderness (left ankle), Swelling (left ankle), Neurovascularly Intact, Capillary Refill < 2 s. Negative for: CALF TENDERNESS, Normal ROM (decreased ROM d/t swelling at left nakle normal ROm in all other lowere extremity joints) Neurological: Positive for: CN II-XII Intact Skin: Positive for: Warm, Dry, Other (multiple ecchymoses) Psychiatric: Positive for: Other (intubated). Negative for: Normal Insight - Medications Active Medications: Active Medications Generic Name Dose Route Start Last Admin Trade Name Freq PRN Reason Stop Dose Admin Acetaminophen 650 mg 04/28/18 00:59 04/28/18 01:29 Tylenol 325mg Tab PO 650 mg Q6H PRN Administration Fever >100.4 F Albuterol/Ipratropium 3 ml 05/02/18 07:13 05/04/18 21:15 Duoneb 3 Mg/0.5 Mg (3 Ml) Ud IH 3 ml [id number] PRN Administration Shortness of Breath Arformoterol Tartrate 15 mcg 05/01/18 20:00 05/05/18 07:40 Brovana IH 15 mcg [id number] STEVEN Administration Aspirin 81 mg 05/05/18 10:05/05/18 10:03 Ecotrin PO 81 mg DAILY STEVEN Administration Atorvastatin Calcium 40 mg 05/02/18 17:00 05/04/18 17:50 Lipitor PO 40 mg DIN STEVEN Administration Budesonide 0.5 mg 05/01/18 20:00 05/05/18 07:40 Pulmicort Respules IH 0.5 mg [id number] STEVEN Administration Carbidopa/Levodopa/Entacapone 1 tab 04/27/18 10:00 05/05/18 10:04 Stalevo 150 PO Not Given TID STEVEN Clopidogrel Bisulfate 75 mg 04/29/18 10:00 05/05/18 10:03 Plavix PO 75 mg DAILY STEVEN Administration Dextrose 0 ml 04/29/18 12:32 Dextrose 50% Inj IV STAT PRN Hypoglycemia Protocol Protocol Docusate Sodium 100 mg 04/27/18 10:00 05/05/18 10:03 Colace PO Not Given BID STEVEN Furosemide 40 mg 05/03/18 09:30 05/05/18 10:04 Lasix IVP Not Given Q12H [facility] Heparin Sodium (Porcine) 5,000 units 05/01/18 22:00 05/05/18 05:52 Heparin SC 5,000 units Q8 STEVEN Administration Protocol Aztreonam 100 mls @ 100 mls/hr 04/29/18 09:45 05/05/18 05:52 Azactam 1 Gm IVPB 05/06/18 09:46 100 mls/hr Q8 STEVEN Administration Protocol Dextrose 1,000 mls @ 0 mls/hr 04/29/18 12:32 Dextrose 5% In Water 1000 Ml IV .Q0M PRN Hypoglycemia Protocol Protocol Per Protocol Metronidazole 500 mg in 100 mls @ 100 mls/hr 05/02/18 14:00 05/05/18 05:51 Flagyl IVPB 100 mls/hr Q8 STEVEN Administration Protocol Milrinone Lactate/Dextrose 100 mls @ 3.837 mls/hr 05/04/18 08:48 05/04/18 09:05 Primacor 20mg/100ml D5w IV 0.01 mcg/kg/min .Q24H PRN 0.2 mls/hr TITRATE PER MD ORDER Administration Protocol 0.2 MCG/KG/MIN Propofol 1,000 mg in 100 mls @ 1.919 mls/hr 05/04/18 10:05 05/05/18 09:37 Diprivan IV 0 mcg/kg/min .Q24H PRN 0 mls/hr TITRATE PER MD ORDER Titration Protocol 5 MCG/KG/MIN NOREPINEPHRINE BIT/0.9 % NACL 4 mg in 250 mls @ 15 mls/hr 05/04/18 18:38 05/05/18 12:03 Levophed 4 Mg/ 250 Ml Ns Premixed IV 2 mcg/min .[id number] PRN 7.5 mls/hr TITRATE PER MD ORDER Titration Protocol 4 MCG/MIN Dexmedetomidine HCl 400 mcg in 100 mls @ 3.198 mls/hr 05/05/18 09:27 05/05/18 09:50 Precedex 400mcg/100ml IV 0.7 mcg/kg/hr .Q24H PRN 11.192 mls/hr Agitation Titration Protocol 0.2 MCG/KG/HR Insulin Human Lispro 0 units 04/30/18 18:00 05/05/18 09:39 Humalog High SC 10 units Q6 STEVEN Administration Protocol Methylprednisolone 40 mg 05/04/18 08:14 05/05/18 10:02 Solu-Medrol IVP 40 mg Q12 STEVEN Administration Nicotine 1 patch 05/02/18 10:00 05/05/18 10:03 Nicoderm Cq TD 1 patch DAILY STEVEN Administration Pantoprazole Sodium 40 mg 04/29/18 10:00 05/05/18 10:02 Protonix Inj IVP 40 mg DAILY STEVEN Administration Sodium Bicarbonate 1,300 mg 05/05/18 10:00 05/05/18 10:03 Sodium Bicarbonate Tab PO 05/10/18 10:01 1,300 mg BID STEVEN Administration - Patient Studies Lab Studies: Microbiology Studies 05/02/18 18:29 Urine Culture - Final Urine,Masters Yeast Species 05/03/18 07:30 Blood Culture - Preliminary Blood-Venous NO GROWTH AFTER 48 HOURS 05/03/18 07:15 Blood Culture - Preliminary Blood-Venous NO GROWTH AFTER 48 HOURS Lab Studies 05/05/18 05/05/18 05/05/18 Range/Units 11:16 09:50 07:21 WBC (4.5-11.0) 10^3/uL RBC (3.5-6.1) 10^6/uL Hgb (12.0-16.0) g/dL Hct (36.0-48.0) % MCV (80.0-105.0) fl MCH (25.0-35.0) pg MCHC (31.0-37.0) g/dl RDW (11.5-14.5) % Plt Count (120.0-450.0) 10^3/uL MPV (7.0-11.0) fl Neut % (Auto) (50.0-68.0) % Lymph % (Auto) (22.0-35.0) % Beckham % (Auto) (1.0-6.0) % Eos % (Auto) (1.5-5.0) % Baso % (Auto) (0.0-3.0) % Lymph # (Auto) (1.2-3.4) Beckham # (Auto) (0.1-0.6) Eos # (Auto) (0.0-0.7) Baso # (Auto) (0.0-2.0) K/mm3 Absolute Neuts (auto) (1.4-6.5) pCO2 (35-45) mm/Hg pO2 (80-100) mm/Hg HCO3 (21-28) mmol/L ABG pH (7.35-7.45) ABG Total CO2 (22-28) mmol.L ABG O2 Saturation (95-98) % ABG O2 Content (15-23) ML/dl ABG Base Excess (-2.0-3.0) mmol/L ABG Hemoglobin (11.7-17.4) g/dL ABG Carboxyhemoglobin (0.5-1.5) % POC ABG HHb (Measured) (0-5) % ABG Methemoglobin (0.0-3.0) % ABG O2 Capacity (16-24) mL/dl ABG Potassium (3.6-5.2) mmol/L Hgb O2 Saturation (95.0-98.0) % Sodium (132-148) mmol/L Chloride (98-107) mmol/L Glucose (65-105) mg/dl Lactate (0.7-2.1) mmol/L Mechanical Rate FiO2 % Tidal Volume PEEP Crit Value Called To Crit Value Called By Blood Gas Notified Time Potassium (3.6-5.0) mmol/L Carbon Dioxide (21-33) mmol/L Anion Gap (10-20) BUN (7-21) mg/dL Creatinine (0.7-1.2) mg/dl Est GFR ( Amer) Est GFR (Non-Af Amer) POC Glucose (mg/dL) 328 H 308 H (65-110) mg/dL Random Glucose (70-110) mg/dL Calcium (8.4-10.5) mg/dL Total Bilirubin (0.2-1.3) mg/dL AST (14-36) U/L ALT (7-56) U/L Alkaline Phosphatase (38-126) U/L Total Protein (5.8-8.3) g/dL Albumin (3.0-4.8) g/dL Globulin gm/dL Albumin/Globulin Ratio (1.1-1.8) Arterial Blood Potassium (3.6-5.2) mmol/L Blood Type A NEGATIVE Antibody Screen Negative Crossmatch See Detail BBK History Checked Patient has bt 05/05/18 05/05/18 05/05/18 Range/Units 06:20 06:15 06:15 WBC 23.4 H D (4.5-11.0) 10^3/uL RBC 2.28 L (3.5-6.1) 10^6/uL Hgb 6.9 L* (12.0-16.0) g/dL Hct 21.3 L (36.0-48.0) % MCV 93.4 (80.0-105.0) fl MCH 30.3 (25.0-35.0) pg MCHC 32.4 (31.0-37.0) g/dl RDW 15.7 H (11.5-14.5) % Plt Count 270 (120.0-450.0) 10^3/uL MPV 10.2 (7.0-11.0) fl Neut % (Auto) 81.1 H (50.0-68.0) % Lymph % (Auto) 16.9 L (22.0-35.0) % Beckham % (Auto) 2.0 (1.0-6.0) % Eos % (Auto) 0.0 L (1.5-5.0) % Baso % (Auto) 0.0 (0.0-3.0) % Lymph # (Auto) 4.0 H (1.2-3.4) Beckham # (Auto) 0.5 (0.1-0.6) Eos # (Auto) 0.0 (0.0-0.7) Baso # (Auto) 0.01 (0.0-2.0) K/mm3 Absolute Neuts (auto) 18.98 H (1.4-6.5) pCO2 28 L (35-45) mm/Hg pO2 180.0 H (80-100) mm/Hg HCO3 14.8 L (21-28) mmol/L ABG pH 7.33 L (7.35-7.45) ABG Total CO2 15.7 L (22-28) mmol.L ABG O2 Saturation 98.9 H (95-98) % ABG O2 Content 10.4 L (15-23) ML/dl ABG Base Excess -10.1 L (-2.0-3.0) mmol/L ABG Hemoglobin 7.3 L (11.7-17.4) g/dL ABG Carboxyhemoglobin 1.3 (0.5-1.5) % POC ABG HHb (Measured) 1.1 (0-5) % ABG Methemoglobin 1.1 (0.0-3.0) % ABG O2 Capacity 10.5 L (16-24) mL/dl ABG Potassium (3.6-5.2) mmol/L Hgb O2 Saturation 96.5 (95.0-98.0) % Sodium 151 H (132-148) mmol/L Chloride 122 H (98-107) mmol/L Glucose (65-105) mg/dl Lactate (0.7-2.1) mmol/L Mechanical Rate FiO2 50.0 % Tidal Volume PEEP Crit Value Called To Crit Value Called By Blood Gas Notified Time Potassium 3.6 (3.6-5.0) mmol/L Carbon Dioxide 16 L (21-33) mmol/L Anion Gap 16 (10-20) BUN 97 H (7-21) mg/dL Creatinine 2.3 H (0.7-1.2) mg/dl Est GFR ( Amer) 24 Est GFR (Non-Af Amer) 20 POC Glucose (mg/dL) (65-110) mg/dL Random Glucose 281 H (70-110) mg/dL Calcium 6.8 L* (8.4-10.5) mg/dL Total Bilirubin 0.3 (0.2-1.3) mg/dL AST 39 H (14-36) U/L ALT 26 (7-56) U/L Alkaline Phosphatase 88 (38-126) U/L Total Protein 4.2 L (5.8-8.3) g/dL Albumin 2.0 L (3.0-4.8) g/dL Globulin 2.2 gm/dL Albumin/Globulin Ratio 0.9 L (1.1-1.8) Arterial Blood Potassium (3.6-5.2) mmol/L Blood Type Antibody Screen Crossmatch BBK History Checked 05/05/18 05/05/18 05/04/18 Range/Units 06:02 03:16 23:15 WBC (4.5-11.0) 10^3/uL RBC (3.5-6.1) 10^6/uL Hgb (12.0-16.0) g/dL Hct (36.0-48.0) % MCV (80.0-105.0) fl MCH (25.0-35.0) pg MCHC (31.0-37.0) g/dl RDW (11.5-14.5) % Plt Count (120.0-450.0) 10^3/uL MPV (7.0-11.0) fl Neut % (Auto) (50.0-68.0) % Lymph % (Auto) (22.0-35.0) % Beckham % (Auto) (1.0-6.0) % Eos % (Auto) (1.5-5.0) % Baso % (Auto) (0.0-3.0) % Lymph # (Auto) (1.2-3.4) Beckham # (Auto) (0.1-0.6) Eos # (Auto) (0.0-0.7) Baso # (Auto) (0.0-2.0) K/mm3 Absolute Neuts (auto) (1.4-6.5) pCO2 (35-45) mm/Hg pO2 (80-100) mm/Hg HCO3 (21-28) mmol/L ABG pH (7.35-7.45) ABG Total CO2 (22-28) mmol.L ABG O2 Saturation (95-98) % ABG O2 Content (15-23) ML/dl ABG Base Excess (-2.0-3.0) mmol/L ABG Hemoglobin (11.7-17.4) g/dL ABG Carboxyhemoglobin (0.5-1.5) % POC ABG HHb (Measured) (0-5) % ABG Methemoglobin (0.0-3.0) % ABG O2 Capacity (16-24) mL/dl ABG Potassium (3.6-5.2) mmol/L Hgb O2 Saturation (95.0-98.0) % Sodium 150 H (132-148) mmol/L Chloride 119 H (98-107) mmol/L Glucose (65-105) mg/dl Lactate (0.7-2.1) mmol/L Mechanical Rate FiO2 % Tidal Volume PEEP Crit Value Called To Crit Value Called By Blood Gas Notified Time Potassium 3.8 (3.6-5.0) mmol/L Carbon Dioxide 16 L (21-33) mmol/L Anion Gap 18 (10-20) BUN 89 H (7-21) mg/dL Creatinine 2.3 H (0.7-1.2) mg/dl Est GFR ( Amer) 24 Est GFR (Non-Af Amer) 20 POC Glucose (mg/dL) 353 H 370 H (65-110) mg/dL Random Glucose 280 H (70-110) mg/dL Calcium 7.0 L (8.4-10.5) mg/dL Total Bilirubin (0.2-1.3) mg/dL AST (14-36) U/L ALT (7-56) U/L Alkaline Phosphatase (38-126) U/L Total Protein (5.8-8.3) g/dL Albumin (3.0-4.8) g/dL Globulin gm/dL Albumin/Globulin Ratio (1.1-1.8) Arterial Blood Potassium (3.6-5.2) mmol/L Blood Type Antibody Screen Crossmatch BBK History Checked 05/04/18 05/04/18 05/04/18 Range/Units 23:15 17:49 17:20 WBC 31.0 H* (4.5-11.0) 10^3/uL RBC 2.61 L (3.5-6.1) 10^6/uL Hgb 7.8 L (12.0-16.0) g/dL Hct 24.6 L (36.0-48.0) % MCV 94.3 (80.0-105.0) fl MCH 29.9 (25.0-35.0) pg MCHC 31.7 (31.0-37.0) g/dl RDW 15.9 H (11.5-14.5) % Plt Count 313 (120.0-450.0) 10^3/uL MPV 10.4 (7.0-11.0) fl Neut % (Auto) (50.0-68.0) % Lymph % (Auto) (22.0-35.0) % Beckham % (Auto) (1.0-6.0) % Eos % (Auto) (1.5-5.0) % Baso % (Auto) (0.0-3.0) % Lymph # (Auto) (1.2-3.4) Beckham # (Auto) (0.1-0.6) Eos # (Auto) (0.0-0.7) Baso # (Auto) (0.0-2.0) K/mm3 Absolute Neuts (auto) (1.4-6.5) pCO2 28 L (35-45) mm/Hg pO2 137.0 H (80-100) mm/Hg HCO3 15.1 L (21-28) mmol/L ABG pH 7.34 L (7.35-7.45) ABG Total CO2 16.0 L (22-28) mmol.L ABG O2 Saturation 99.2 H (95-98) % ABG O2 Content (15-23) ML/dl ABG Base Excess -9.2 L (-2.0-3.0) mmol/L ABG Hemoglobin (11.7-17.4) g/dL ABG Carboxyhemoglobin (0.5-1.5) % POC ABG HHb (Measured) (0-5) % ABG Methemoglobin (0.0-3.0) % ABG O2 Capacity (16-24) mL/dl ABG Potassium 3.4 L (3.6-5.2) mmol/L Hgb O2 Saturation (95.0-98.0) % Sodium 152.0 H (132-148) mmol/L Chloride 123.0 H (98-107) mmol/L Glucose 254 H (65-105) mg/dl Lactate 1.4 (0.7-2.1) mmol/L Mechanical Rate 14 FiO2 50.0 % Tidal Volume 400 PEEP 5 Crit Value Called To Dr connell Crit Value Called By Rhoneil rt Blood Gas Notified Time 1725 Potassium (3.6-5.0) mmol/L Carbon Dioxide (21-33) mmol/L Anion Gap (10-20) BUN (7-21) mg/dL Creatinine (0.7-1.2) mg/dl Est GFR ( Amer) Est GFR (Non-Af Amer) POC Glucose (mg/dL) 336 H (65-110) mg/dL Random Glucose (70-110) mg/dL Calcium (8.4-10.5) mg/dL Total Bilirubin (0.2-1.3) mg/dL AST (14-36) U/L ALT (7-56) U/L Alkaline Phosphatase (38-126) U/L Total Protein (5.8-8.3) g/dL Albumin (3.0-4.8) g/dL Globulin gm/dL Albumin/Globulin Ratio (1.1-1.8) Arterial Blood Potassium 3.4 L (3.6-5.2) mmol/L Blood Type Antibody Screen Crossmatch BBK History Checked Laboratory Results - last 24 hr 05/04/18 05/04/18 05/04/18 17:20 17:49 23:15 WBC 31.0 H* RBC 2.61 L Hgb 7.8 L Hct 24.6 L MCV 94.3 MCH 29.9 MCHC 31.7 RDW 15.9 H Plt Count 313 MPV 10.4 Neut % (Auto) Lymph % (Auto) Beckham % (Auto) Eos % (Auto) Baso % (Auto) Lymph # (Auto) Beckham # (Auto) Eos # (Auto) Baso # (Auto) Absolute Neuts (auto) pCO2 28 L pO2 137.0 H HCO3 15.1 L ABG pH 7.34 L ABG Total CO2 16.0 L ABG O2 Saturation 99.2 H ABG O2 Content ABG Base Excess -9.2 L ABG Hemoglobin ABG Carboxyhemoglobin POC ABG HHb (Measured) ABG Methemoglobin ABG O2 Capacity ABG Potassium 3.4 L Hgb O2 Saturation Sodium 152.0 H Chloride 123.0 H Glucose 254 H Lactate 1.4 Mechanical Rate 14 FiO2 50.0 Tidal Volume 400 PEEP 5 Crit Value Called To Dr connell Crit Value Called By Kortney rt Blood Gas Notified Time 1725 Potassium Carbon Dioxide Anion Gap BUN Creatinine Est GFR ( Amer) Est GFR (Non-Af Amer) POC Glucose (mg/dL) 336 H Random Glucose Calcium Total Bilirubin AST ALT Alkaline Phosphatase Total Protein Albumin Globulin Albumin/Globulin Ratio Arterial Blood Potassium 3.4 L Blood Type Antibody Screen Crossmatch BBK History Checked 05/04/18 05/05/18 05/05/18 23:15 03:16 06:02 WBC RBC Hgb Hct MCV MCH MCHC RDW Plt Count MPV Neut % (Auto) Lymph % (Auto) Beckham % (Auto) Eos % (Auto) Baso % (Auto) Lymph # (Auto) Beckham # (Auto) Eos # (Auto) Baso # (Auto) Absolute Neuts (auto) pCO2 pO2 HCO3 ABG pH ABG Total CO2 ABG O2 Saturation ABG O2 Content ABG Base Excess ABG Hemoglobin ABG Carboxyhemoglobin POC ABG HHb (Measured) ABG Methemoglobin ABG O2 Capacity ABG Potassium Hgb O2 Saturation Sodium 150 H Chloride 119 H Glucose Lactate Mechanical Rate FiO2 Tidal Volume PEEP Crit Value Called To Crit Value Called By Blood Gas Notified Time Potassium 3.8 Carbon Dioxide 16 L Anion Gap 18 BUN 89 H Creatinine 2.3 H Est GFR ( Amer) 24 Est GFR (Non-Af Amer) 20 POC Glucose (mg/dL) 370 H 353 H Random Glucose 280 H Calcium 7.0 L Total Bilirubin AST ALT Alkaline Phosphatase Total Protein Albumin Globulin Albumin/Globulin Ratio Arterial Blood Potassium Blood Type Antibody Screen Crossmatch BBK History Checked 05/05/18 05/05/18 05/05/18 06:15 06:15 06:20 WBC 23.4 H D RBC 2.28 L Hgb 6.9 L* Hct 21.3 L MCV 93.4 MCH 30.3 MCHC 32.4 RDW 15.7 H Plt Count 270 MPV 10.2 Neut % (Auto) 81.1 H Lymph % (Auto) 16.9 L Beckham % (Auto) 2.0 Eos % (Auto) 0.0 L Baso % (Auto) 0.0 Lymph # (Auto) 4.0 H Beckham # (Auto) 0.5 Eos # (Auto) 0.0 Baso # (Auto) 0.01 Absolute Neuts (auto) 18.98 H pCO2 28 L pO2 180.0 H HCO3 14.8 L ABG pH 7.33 L ABG Total CO2 15.7 L ABG O2 Saturation 98.9 H ABG O2 Content 10.4 L ABG Base Excess -10.1 L ABG Hemoglobin 7.3 L ABG Carboxyhemoglobin 1.3 POC ABG HHb (Measured) 1.1 ABG Methemoglobin 1.1 ABG O2 Capacity 10.5 L ABG Potassium Hgb O2 Saturation 96.5 Sodium 151 H Chloride 122 H Glucose Lactate Mechanical Rate FiO2 50.0 Tidal Volume PEEP Crit Value Called To Crit Value Called By Blood Gas Notified Time Potassium 3.6 Carbon Dioxide 16 L Anion Gap 16 BUN 97 H Creatinine 2.3 H Est GFR ( Amer) 24 Est GFR (Non-Af Amer) 20 POC Glucose (mg/dL) Random Glucose 281 H Calcium 6.8 L* Total Bilirubin 0.3 AST 39 H ALT 26 Alkaline Phosphatase 88 Total Protein 4.2 L Albumin 2.0 L Globulin 2.2 Albumin/Globulin Ratio 0.9 L Arterial Blood Potassium Blood Type Antibody Screen Crossmatch BBK History Checked 05/05/18 05/05/18 05/05/18 07:21 09:50 11:16 WBC RBC Hgb Hct MCV MCH MCHC RDW Plt Count MPV Neut % (Auto) Lymph % (Auto) Beckham % (Auto) Eos % (Auto) Baso % (Auto) Lymph # (Auto) Beckham # (Auto) Eos # (Auto) Baso # (Auto) Absolute Neuts (auto) pCO2 pO2 HCO3 ABG pH ABG Total CO2 ABG O2 Saturation ABG O2 Content ABG Base Excess ABG Hemoglobin ABG Carboxyhemoglobin POC ABG HHb (Measured) ABG Methemoglobin ABG O2 Capacity ABG Potassium Hgb O2 Saturation Sodium Chloride Glucose Lactate Mechanical Rate FiO2 Tidal Volume PEEP Crit Value Called To Crit Value Called By Blood Gas Notified Time Potassium Carbon Dioxide Anion Gap BUN Creatinine Est GFR ( Amer) Est GFR (Non-Af Amer) POC Glucose (mg/dL) 308 H 328 H Random Glucose Calcium Total Bilirubin AST ALT Alkaline Phosphatase Total Protein Albumin Globulin Albumin/Globulin Ratio Arterial Blood Potassium Blood Type A NEGATIVE Antibody Screen Negative Crossmatch See Detail BBK History Checked Patient has bt Radiology Impressions: Radiology Impressions Chest X-Ray 05/05/18 06:00 IMPRESSION: Improved vascular congestion and perihilar infiltrates EKG/Cardiology Studies: Cardiology / EKG Studies 05/05/18 00:01 EKG [ELECTROCARDIOGRAM] Stat Comment: Reason For Exam: RAPID HEART RATE Does Patient Have a Pacemaker?: No 05/05/18 11:45 ELECTROCARDIOGRAM DAILY Comment: Reason For Exam: chest pain Fingerstick Blood Sugar Results: 328 Review of Systems - Review of Systems Systems not reviewed;Unavailable: Intubated Critical Care Progress Note - Ventilator Checklist Head of Bed 30 Degrees: Yes PUD Prophalyxis: Yes DVT Prophylaxis: Yes - Vent Settings MODE:: PRVC TIDAL VOLUME:: 400 RESP RATE:: 14 FIO2:: 40 PEEP:: 5 - Nutrition Nutrition: Nutrition Category Date Time Status Pureed [Dysphagia/Modified Consistency Diet] [DIET] Diets 05/02/18 Lunch Ordered Assessment/Plan - Assessment and Plan (Free Text) Assessment: 88 year old female with past medical history of right ICA stenosis status post carotid endarterectomy, hypertension, hyperlipidemia, diabetes mellitus type II, Parkinson's disease was diagnosed with multisystem organ failure 2/2 to hypoperfusion from distributive shock. Patient was extubated last week but went into respiratory distress on 05/04. Patient was not able to protect her airway and was subsequently intubated. Code heart was called on the patient to evaluate for possible reinfarct. 1 left circumflex, 1 LAD stent were placed. Both stents were bare metal. Arterial line was placed for closer blood pressure management. Plan: Neuro: -Intubated and sedated with precedex -Head CT from 04/30 showed no acute intracranial hemorrhage Parkinson's disease -Continue with levodopa/carbidopa Cardio: NSTEMI -Continue with aspirin, plavix. Lopressor held due to hypotension. -2 bare metal left circumflex stents, 1 bare metal LAD stent were placed on catherization on 05/04 -Maintain MAP>65. -Monitor for S/S, HD compromise. -Follow recommendations as per Cardiology, Dr. Page Septic shock 2/2 to gastrointestinal infection -Patient has had deteriorating blood pressure with the presence of sepsis with Bacteriodes. -Patient normotensive today off of levophed. -Patient given 500mL of NS overnight. Elevated BNP likely 2/2 to decompensated CHF -Lasix 40 mg IV held due to hypotension -Beta christian held due to hypotension. Pulm: Cardiogenic Pulmonary Edema -ABG: pH: 7.33, pCO2: 28, pO2: 180 -Patient intubated and sedated -Vent settings: 400/14/5/100% -Patient has bilateral effusions on CXR and unchanged. -Daily sedation vacation and weaning trials -Conservative fluid management -Maintain oral hygiene -Head of bed to 30 degrees -Daily CXR and ABG -Daily weight, I and Os COPD -Continue Duonebs Q6 -Continue brovana 15 mcg Q12 and pulmicort 0.5 mg Q12 -Patient's solumedrol decreased to 40 mg Q12 Nicotine Dependence -Nicotine patch continued GI: Acute Liver Injury-resolved -Stable AST/ALT -Abdominal CT 05/01: large collection of fluid and gas in uterus measuring 9.7 cm. Concern for cervical/endometrial stenosis for neoplasm. Cholelithiasis without cholecystitis. Likely source of infection is intraabdominal Diet -NPO GI prophylaxis -Protonix 40 mg IV daily /Nephro: Acute tubular necrosis -MODS with ischemic injury to kidney leading to ATN. -BUN/Cr worsened at 97/2.3. Creatinine was 2.1 yesterday. Baseline is 1.0 -Avoid nephrotoxins such as lisinopril and losartan. -UCx shows pansensitive E. Coli. Repeat UCx was negative. -Poor urine output. Masters intact -Continue monitoring. -Replete electrolytes as needed. -Maintain euvolemia. Endocrinology: Diabetes Mellitus type II -Random glucose: 308 -High sliding scale insulin -Maintain euglycemia. Heme/Onc: -Abdominal CT: large collection of fluid and gas in uterus measuring 9.7 cm. Concern for cervical/endometrial stenosis for neoplasm. Normocytic Anemia -H/H stable at 6.9/21.3 from Hgb of 7.8 yesterday. -2 U of PRBCS given. -No signs of HD compromise. -Continue monitoring H/H DVT prophylaxis -Heparin 5000 U Q8 ID: Septic shock 2/ to Gastrointestinal Pathology -Afebrile, leukocytosis improved at 23.4 from 31 -Abdominal CT: large collection of fluid and gas in uterus measuring 9.7 cm. Concern for cervical/endometrial stenosis for neoplasm. -Blood culture: positive for Bacteriodes -UCx: pansensitive E. Coli. Repeat UCx was negative. -Procalcitonin: 27.27 from 0.69 -Lactate: trending down to 1.4 -Continue with aztreonam day 8 and flagyl day 4 for septic shock from likely GI source. [employer]: -Abdominal CT: large collection of fluid and gas in uterus measuring 9.7 cm. Concern for cervical/endometrial stenosis for neoplasm. -As per hand shaper, this is unlikely due to Core Man causes. Disposition: At this time, patient has been made DNR. Palliative Care, Shanthi Vazquez, has spoken with the family regarding terminal extubation. Family has not signed any documentation at this time regarding terminal extubation but they have planned to strongly consider it for later today. Patient seen and examined with Dr. Connell. - Date & Time Date: 05/05/18 Time: 14:03 <Yonny Connell - Last Filed: 05/05/18 16:21> CCU Objective - Vital Signs / Intake & Output Vital Signs (Last 4 hours): Vital Signs Temp Pulse Resp BP Pulse Ox 05/05/18 16:00 98.2 F 81 19 112/45 L 05/05/18 14:33 98.1 F 112 H 21 106/67 05/05/18 14:00 82 05/05/18 13:15 137 H 104/52 L 100 05/05/18 13:00 136 H 109/49 L 100 05/05/18 12:45 135 H 100/50 L 100 05/05/18 12:32 98.0 F 139 H 20 107/52 L 05/05/18 12:30 134 H 97/47 L 100 05/05/18 12:21 134 H 94/45 L 100 Intake and Output (Last 8hrs): Intake & Output 05/05/18 05/05/18 05/05/18 06:59 14:59 22:59 Intake Total 30 522 98 Balance 30 522 98 Intake: IV 30 197 98 Blood Product 325 Red Blood Cells Cpd As1 325 Lr Unit [id number] - Medications Active Medications: Active Medications Generic Name Dose Route Start Last Admin Trade Name Freq PRN Reason Stop Dose Admin Acetaminophen 650 mg 04/28/18 00:59 04/28/18 01:29 Tylenol 325mg Tab PO 650 mg Q6H PRN Administration Fever >100.4 F Albuterol/Ipratropium 3 ml 05/02/18 07:13 05/04/18 21:15 Duoneb 3 Mg/0.5 Mg (3 Ml) Ud IH 3 ml [id number] PRN Administration Shortness of Breath Arformoterol Tartrate 15 mcg 05/01/18 20:00 05/05/18 07:40 Brovana IH 15 mcg [id number] STEVEN Administration Aspirin 81 mg 05/05/18 10:00 05/05/18 10:03 Ecotrin PO 81 mg DAILY STEVEN Administration Atorvastatin Calcium 40 mg 05/02/18 17:00 05/04/18 17:50 Lipitor PO 40 mg DIN STEVEN Administration Budesonide 0.5 mg 05/01/18 20:00 05/05/18 07:40 Pulmicort Respules IH 0.5 mg [id number] STEVEN Administration Carbidopa/Levodopa/Entacapone 1 tab 04/27/18 10:00 05/05/18 10:04 Stalevo 150 PO Not Given TID [facility] Clopidogrel Bisulfate 75 mg 04/29/18 10:00 05/05/18 10:03 Plavix PO 75 mg DAILY STEVEN Administration Dextrose 0 ml 04/29/18 12:32 Dextrose 50% Inj IV STAT PRN Hypoglycemia Protocol Protocol Docusate Sodium 100 mg 04/27/18 10:00 05/05/18 10:03 Colace PO Not Given BID [facility] Furosemide 40 mg 05/03/18 09:30 05/05/18 10:04 Lasix IVP Not Given Q12H [facility] Heparin Sodium (Porcine) 5,000 units 05/01/18 22:00 05/05/18 05:52 Heparin SC 5,000 units Q8 STEVEN Administration Protocol Aztreonam 100 mls @ 100 mls/hr 04/29/18 09:45 05/05/18 05:52 Azactam 1 Gm IVPB 05/06/18 09:46 100 mls/hr Q8 STEVEN Administration Protocol Dextrose 1,000 mls @ 0 mls/hr 04/29/18 12:32 Dextrose 5% In Water 1000 Ml IV .Q0M PRN Hypoglycemia Protocol Protocol Per Protocol Metronidazole 500 mg in 100 mls @ 100 mls/hr 05/02/18 14:00 05/05/18 05:51 Flagyl IVPB 100 mls/hr Q8 STEVEN Administration Protocol Milrinone Lactate/Dextrose 100 mls @ 3.837 mls/hr 05/04/18 08:48 02/04/19 09:05 Primacor 20mg/100ml D5w IV 0.01 mcg/kg/min .Q24H PRN 0.2 mls/hr TITRATE PER MD ORDER Administration Protocol 0.2 MCG/KG/MIN Propofol 1,000 mg in 100 mls @ 1.919 mls/hr 05/04/18 10:05 05/05/18 09:37 Diprivan IV 0 mcg/kg/min .Q24H PRN 0 mls/hr TITRATE PER MD ORDER Titration Protocol 5 MCG/KG/MIN NOREPINEPHRINE BIT/0.9 % NACL 4 mg in 250 mls @ 15 mls/hr 05/04/18 18:38 05/05/18 12:03 Levophed 4 Mg/ 250 Ml Ns Premixed IV 2 mcg/min .[id number] PRN 7.5 mls/hr TITRATE PER MD ORDER Titration Protocol 4 MCG/MIN Dexmedetomidine HCl 400 mcg in 100 mls @ 3.198 mls/hr 05/05/18 09:27 05/05/18 16:04 Precedex 400mcg/100ml IV 0.7 mcg/kg/hr .Q24H PRN 11.192 mls/hr Agitation Administration Protocol 0.2 MCG/KG/HR Insulin Human Lispro 0 units 04/30/18 18:00 05/05/18 09:39 Humalog High SC 10 units Q6 STEVEN Administration Protocol Methylprednisolone 40 mg 05/04/18 08:14 05/05/18 10:02 Solu-Medrol IVP 40 mg Q12 STEVEN Administration Nicotine 1 patch 05/02/18 10:00 05/05/18 10:03 Nicoderm Cq TD 1 patch DAILY STEVEN Administration Pantoprazole Sodium 40 mg 04/29/18 10:00 05/05/18 10:02 Protonix Inj IVP 40 mg DAILY STEVEN Administration Sodium Bicarbonate 1,300 mg 05/05/18 10:00 05/05/18 10:03 Sodium Bicarbonate Tab PO 05/10/18 10:01 1,300 mg BID STEVEN Administration - Patient Studies Lab Studies: Microbiology Studies 05/02/18 18:29 Urine Culture - Final Urine,Masters Yeast Species 05/03/18 07:30 Blood Culture - Preliminary Blood-Venous NO GROWTH AFTER 48 HOURS 02/03/19 07:15 Blood Culture - Preliminary Blood-Venous NO GROWTH AFTER 48 HOURS Lab Studies 05/05/18 05/05/18 05/05/18 Range/Units 11:16 09:50 07:21 WBC (4.5-11.0) 10^3/uL RBC (3.5-6.1) 10^6/uL Hgb (12.0-16.0) g/dL Hct (36.0-48.0) % MCV (80.0-105.0) fl MCH (25.0-35.0) pg MCHC (31.0-37.0) g/dl RDW (11.5-14.5) % Plt Count (120.0-450.0) 10^3/uL MPV (7.0-11.0) fl Neut % (Auto) (50.0-68.0) % Lymph % (Auto) (22.0-35.0) % Beckham % (Auto) (1.0-6.0) % Eos % (Auto) (1.5-5.0) % Baso % (Auto) (0.0-3.0) % Lymph # (Auto) (1.2-3.4) Beckham # (Auto) (0.1-0.6) Eos # (Auto) (0.0-0.7) Baso # (Auto) (0.0-2.0) K/mm3 Absolute Neuts (auto) (1.4-6.5) pCO2 (35-45) mm/Hg pO2 (80-100) mm/Hg HCO3 (21-28) mmol/L ABG pH (7.35-7.45) ABG Total CO2 (22-28) mmol.L ABG O2 Saturation (95-98) % ABG O2 Content (15-23) ML/dl ABG Base Excess (-2.0-3.0) mmol/L ABG Hemoglobin (11.7-17.4) g/dL ABG Carboxyhemoglobin (0.5-1.5) % POC ABG HHb (Measured) (0-5) % ABG Methemoglobin (0.0-3.0) % ABG O2 Capacity (16-24) mL/dl ABG Potassium (3.6-5.2) mmol/L Hgb O2 Saturation (95.0-98.0) % Sodium (132-148) mmol/L Chloride (98-107) mmol/L Glucose (65-105) mg/dl Lactate (0.7-2.1) mmol/L Mechanical Rate FiO2 % Tidal Volume PEEP Crit Value Called To Crit Value Called By Blood Gas Notified Time Potassium (3.6-5.0) mmol/L Carbon Dioxide (21-33) mmol/L Anion Gap (10-20) BUN (7-21) mg/dL Creatinine (0.7-1.2) mg/dl Est GFR ( Amer) Est GFR (Non-Af Amer) POC Glucose (mg/dL) 328 H 308 H (65-110) mg/dL Random Glucose (70-110) mg/dL Calcium (8.4-10.5) mg/dL Total Bilirubin (0.2-1.3) mg/dL AST (14-36) U/L ALT (7-56) U/L Alkaline Phosphatase (38-126) U/L Total Protein (5.8-8.3) g/dL Albumin (3.0-4.8) g/dL Globulin gm/dL Albumin/Globulin Ratio (1.1-1.8) Arterial Blood Potassium (3.6-5.2) mmol/L Blood Type A NEGATIVE Antibody Screen Negative Crossmatch See Detail BBK History Checked Patient has bt 05/05/18 05/05/18 05/05/18 Range/Units 06:20 06:15 06:15 WBC 23.4 H D (4.5-11.0) 10^3/uL RBC 2.28 L (3.5-6.1) 10^6/uL Hgb 6.9 L* (12.0-16.0) g/dL Hct 21.3 L (36.0-48.0) % MCV 93.4 (80.0-105.0) fl MCH 30.3 (25.0-35.0) pg MCHC 32.4 (31.0-37.0) g/dl RDW 15.7 H (11.5-14.5) % Plt Count 270 (120.0-450.0) 10^3/uL MPV 10.2 (7.0-11.0) fl Neut % (Auto) 81.1 H (50.0-68.0) % Lymph % (Auto) 16.9 L (22.0-35.0) % Beckham % (Auto) 2.0 (1.0-6.0) % Eos % (Auto) 0.0 L (1.5-5.0) % Baso % (Auto) 0.0 (0.0-3.0) % Lymph # (Auto) 4.0 H (1.2-3.4) Beckham # (Auto) 0.5 (0.1-0.6) Eos # (Auto) 0.0 (0.0-0.7) Baso # (Auto) 0.01 (0.0-2.0) K/mm3 Absolute Neuts (auto) 18.98 H (1.4-6.5) pCO2 28 L (35-45) mm/Hg pO2 180.0 H (80-100) mm/Hg HCO3 14.8 L (21-28) mmol/L ABG pH 7.33 L (7.35-7.45) ABG Total CO2 15.7 L (22-28) mmol.L ABG O2 Saturation 98.9 H (95-98) % ABG O2 Content 10.4 L (15-23) ML/dl ABG Base Excess -10.1 L (-2.0-3.0) mmol/L ABG Hemoglobin 7.3 L (11.7-17.4) g/dL ABG Carboxyhemoglobin 1.3 (0.5-1.5) % POC ABG HHb (Measured) 1.1 (0-5) % ABG Methemoglobin 1.1 (0.0-3.0) % ABG O2 Capacity 10.5 L (16-24) mL/dl ABG Potassium (3.6-5.2) mmol/L Hgb O2 Saturation 96.5 (95.0-98.0) % Sodium 151 H (132-148) mmol/L Chloride 122 H (98-107) mmol/L Glucose (65-105) mg/dl Lactate (0.7-2.1) mmol/L Mechanical Rate FiO2 50.0 % Tidal Volume PEEP Crit Value Called To Crit Value Called By Blood Gas Notified Time Potassium 3.6 (3.6-5.0) mmol/L Carbon Dioxide 16 L (21-33) mmol/L Anion Gap 16 (10-20) BUN 97 H (7-21) mg/dL Creatinine 2.3 H (0.7-1.2) mg/dl Est GFR ( Amer) 24 Est GFR (Non-Af Amer) 20 POC Glucose (mg/dL) (65-110) mg/dL Random Glucose 281 H (70-110) mg/dL Calcium 6.8 L* (8.4-10.5) mg/dL Total Bilirubin 0.3 (0.2-1.3) mg/dL AST 39 H (14-36) U/L ALT 26 (7-56) U/L Alkaline Phosphatase 88 (38-126) U/L Total Protein 4.2 L (5.8-8.3) g/dL Albumin 2.0 L (3.0-4.8) g/dL Globulin 2.2 gm/dL Albumin/Globulin Ratio 0.9 L (1.1-1.8) Arterial Blood Potassium (3.6-5.2) mmol/L Blood Type Antibody Screen Crossmatch BBK History Checked 05/05/18 05/05/18 05/04/18 Range/Units 06:02 03:16 23:15 WBC (4.5-11.0) 10^3/uL RBC (3.5-6.1) 10^6/uL Hgb (12.0-16.0) g/dL Hct (36.0-48.0) % MCV (80.0-105.0) fl MCH (25.0-35.0) pg MCHC (31.0-37.0) g/dl RDW (11.5-14.5) % Plt Count (120.0-450.0) 10^3/uL MPV (7.0-11.0) fl Neut % (Auto) (50.0-68.0) % Lymph % (Auto) (22.0-35.0) % Beckham % (Auto) (1.0-6.0) % Eos % (Auto) (1.5-5.0) % Baso % (Auto) (0.0-3.0) % Lymph # (Auto) (1.2-3.4) Beckham # (Auto) (0.1-0.6) Eos # (Auto) (0.0-0.7) Baso # (Auto) (0.0-2.0) K/mm3 Absolute Neuts (auto) (1.4-6.5) pCO2 (35-45) mm/Hg pO2 (80-100) mm/Hg HCO3 (21-28) mmol/L ABG pH (7.35-7.45) ABG Total CO2 (22-28) mmol.L ABG O2 Saturation (95-98) % ABG O2 Content (15-23) ML/dl ABG Base Excess (-2.0-3.0) mmol/L ABG Hemoglobin (11.7-17.4) g/dL ABG Carboxyhemoglobin (0.5-1.5) % POC ABG HHb (Measured) (0-5) % ABG Methemoglobin (0.0-3.0) % ABG O2 Capacity (16-24) mL/dl ABG Potassium (3.6-5.2) mmol/L Hgb O2 Saturation (95.0-98.0) % Sodium 150 H (132-148) mmol/L Chloride 119 H (98-107) mmol/L Glucose (65-105) mg/dl Lactate (0.7-2.1) mmol/L Mechanical Rate FiO2 % Tidal Volume PEEP Crit Value Called To Crit Value Called By Blood Gas Notified Time Potassium 3.8 (3.6-5.0) mmol/L Carbon Dioxide 16 L (21-33) mmol/L Anion Gap 18 (10-20) BUN 89 H (7-21) mg/dL Creatinine 2.3 H (0.7-1.2) mg/dl Est GFR ( Amer) 24 Est GFR (Non-Af Amer) 20 POC Glucose (mg/dL) 353 H 370 H (65-110) mg/dL Random Glucose 280 H (70-110) mg/dL Calcium 7.0 L (8.4-10.5) mg/dL Total Bilirubin (0.2-1.3) mg/dL AST (14-36) U/L ALT (7-56) U/L Alkaline Phosphatase (38-126) U/L Total Protein (5.8-8.3) g/dL Albumin (3.0-4.8) g/dL Globulin gm/dL Albumin/Globulin Ratio (1.1-1.8) Arterial Blood Potassium (3.6-5.2) mmol/L Blood Type Antibody Screen Crossmatch BBK History Checked 05/04/18 05/04/18 05/04/18 Range/Units 23:15 17:49 17:20 WBC 31.0 H* (4.5-11.0) 10^3/uL RBC 2.61 L (3.5-6.1) 10^6/uL Hgb 7.8 L (12.0-16.0) g/dL Hct 24.6 L (36.0-48.0) % MCV 94.3 (80.0-105.0) fl MCH 29.9 (25.0-35.0) pg MCHC 31.7 (31.0-37.0) g/dl RDW 15.9 H (11.5-14.5) % Plt Count 313 (120.0-450.0) 10^3/uL MPV 10.4 (7.0-11.0) fl Neut % (Auto) (50.0-68.0) % Lymph % (Auto) (22.0-35.0) % Beckham % (Auto) (1.0-6.0) % Eos % (Auto) (1.5-5.0) % Baso % (Auto) (0.0-3.0) % Lymph # (Auto) (1.2-3.4) Beckham # (Auto) (0.1-0.6) Eos # (Auto) (0.0-0.7) Baso # (Auto) (0.0-2.0) K/mm3 Absolute Neuts (auto) (1.4-6.5) pCO2 28 L (35-45) mm/Hg pO2 137.0 H (80-100) mm/Hg HCO3 15.1 L (21-28) mmol/L ABG pH 7.34 L (7.35-7.45) ABG Total CO2 16.0 L (22-28) mmol.L ABG O2 Saturation 99.2 H (95-98) % ABG O2 Content (15-23) ML/dl ABG Base Excess -9.2 L (-2.0-3.0) mmol/L ABG Hemoglobin (11.7-17.4) g/dL ABG Carboxyhemoglobin (0.5-1.5) % POC ABG HHb (Measured) (0-5) % ABG Methemoglobin (0.0-3.0) % ABG O2 Capacity (16-24) mL/dl ABG Potassium 3.4 L (3.6-5.2) mmol/L Hgb O2 Saturation (95.0-98.0) % Sodium 152.0 H (132-148) mmol/L Chloride 123.0 H (98-107) mmol/L Glucose 254 H (65-105) mg/dl Lactate 1.4 (0.7-2.1) mmol/L Mechanical Rate 14 FiO2 50.0 % Tidal Volume 400 PEEP 5 Crit Value Called To Dr connell Crit Value Called By Kortney rt Blood Gas Notified Time 1725 Potassium (3.6-5.0) mmol/L Carbon Dioxide (21-33) mmol/L Anion Gap (10-20) BUN (7-21) mg/dL Creatinine (0.7-1.2) mg/dl Est GFR ( Amer) Est GFR (Non-Af Amer) POC Glucose (mg/dL) 336 H (65-110) mg/dL Random Glucose (70-110) mg/dL Calcium (8.4-10.5) mg/dL Total Bilirubin (0.2-1.3) mg/dL AST (14-36) U/L ALT (7-56) U/L Alkaline Phosphatase (38-126) U/L Total Protein (5.8-8.3) g/dL Albumin (3.0-4.8) g/dL Globulin gm/dL Albumin/Globulin Ratio (1.1-1.8) Arterial Blood Potassium 3.4 L (3.6-5.2) mmol/L Blood Type Antibody Screen Crossmatch BBK History Checked Laboratory Results - last 24 hr 05/04/18 05/04/18 05/04/18 17:20 17:49 23:15 WBC 31.0 H* RBC 2.61 L Hgb 7.8 L Hct 24.6 L MCV 94.3 MCH 29.9 MCHC 31.7 RDW 15.9 H Plt Count 313 MPV 10.4 Neut % (Auto) Lymph % (Auto) Beckham % (Auto) Eos % (Auto) Baso % (Auto) Lymph # (Auto) Beckham # (Auto) Eos # (Auto) Baso # (Auto) Absolute Neuts (auto) pCO2 28 L pO2 137.0 H HCO3 15.1 L ABG pH 7.34 L ABG Total CO2 16.0 L ABG O2 Saturation 99.2 H ABG O2 Content ABG Base Excess -9.2 L ABG Hemoglobin ABG Carboxyhemoglobin POC ABG HHb (Measured) ABG Methemoglobin ABG O2 Capacity ABG Potassium 3.4 L Hgb O2 Saturation Sodium 152.0 H Chloride 123.0 H Glucose 254 H Lactate 1.4 Mechanical Rate 14 FiO2 50.0 Tidal Volume 400 PEEP 5 Crit Value Called To Dr connell Crit Value Called By Kortney rt Blood Gas Notified Time 1725 Potassium Carbon Dioxide Anion Gap BUN Creatinine Est GFR ( Amer) Est GFR (Non-Af Amer) POC Glucose (mg/dL) 336 H Random Glucose Calcium Total Bilirubin AST ALT Alkaline Phosphatase Total Protein Albumin Globulin Albumin/Globulin Ratio Arterial Blood Potassium 3.4 L Blood Type Antibody Screen Crossmatch BBK History Checked 05/04/18 05/05/18 05/05/18 23:15 03:16 06:02 WBC RBC Hgb Hct MCV MCH MCHC RDW Plt Count MPV Neut % (Auto) Lymph % (Auto) Beckham % (Auto) Eos % (Auto) Baso % (Auto) Lymph # (Auto) Beckham # (Auto) Eos # (Auto) Baso # (Auto) Absolute Neuts (auto) pCO2 pO2 HCO3 ABG pH ABG Total CO2 ABG O2 Saturation ABG O2 Content ABG Base Excess ABG Hemoglobin ABG Carboxyhemoglobin POC ABG HHb (Measured) ABG Methemoglobin ABG O2 Capacity ABG Potassium Hgb O2 Saturation Sodium 150 H Chloride 119 H Glucose Lactate Mechanical Rate FiO2 Tidal Volume PEEP Crit Value Called To Crit Value Called By Blood Gas Notified Time Potassium 3.8 Carbon Dioxide 16 L Anion Gap 18 BUN 89 H Creatinine 2.3 H Est GFR ( Amer) 24 Est GFR (Non-Af Amer) 20 POC Glucose (mg/dL) 370 H 353 H Random Glucose 280 H Calcium 7.0 L Total Bilirubin AST ALT Alkaline Phosphatase Total Protein Albumin Globulin Albumin/Globulin Ratio Arterial Blood Potassium Blood Type Antibody Screen Crossmatch BBK History Checked 05/05/18 05/05/18 05/05/18 06:15 06:15 06:20 WBC 23.4 H D RBC 2.28 L Hgb 6.9 L* Hct 21.3 L MCV 93.4 MCH 30.3 MCHC 32.4 RDW 15.7 H Plt Count 270 MPV 10.2 Neut % (Auto) 81.1 H Lymph % (Auto) 16.9 L Beckham % (Auto) 2.0 Eos % (Auto) 0.0 L Baso % (Auto) 0.0 Lymph # (Auto) 4.0 H Beckham # (Auto) 0.5 Eos # (Auto) 0.0 Baso # (Auto) 0.01 Absolute Neuts (auto) 18.98 H pCO2 28 L pO2 180.0 H HCO3 14.8 L ABG pH 7.33 L ABG Total CO2 15.7 L ABG O2 Saturation 98.9 H ABG O2 Content 10.4 L ABG Base Excess -10.1 L ABG Hemoglobin 7.3 L ABG Carboxyhemoglobin 1.3 POC ABG HHb (Measured) 1.1 ABG Methemoglobin 1.1 ABG O2 Capacity 10.5 L ABG Potassium Hgb O2 Saturation 96.5 Sodium 151 H Chloride 122 H Glucose Lactate Mechanical Rate FiO2 50.0 Tidal Volume PEEP Crit Value Called To Crit Value Called By Blood Gas Notified Time Potassium 3.6 Carbon Dioxide 16 L Anion Gap 16 BUN 97 H Creatinine 2.3 H Est GFR ( Amer) 24 Est GFR (Non-Af Amer) 20 POC Glucose (mg/dL) Random Glucose 281 H Calcium 6.8 L* Total Bilirubin 0.3 AST 39 H ALT 26 Alkaline Phosphatase 88 Total Protein 4.2 L Albumin 2.0 L Globulin 2.2 Albumin/Globulin Ratio 0.9 L Arterial Blood Potassium Blood Type Antibody Screen Crossmatch BBK History Checked 05/05/18 05/05/18 05/05/18 07:21 09:50 11:16 WBC RBC Hgb Hct MCV MCH MCHC RDW Plt Count MPV Neut % (Auto) Lymph % (Auto) Beckham % (Auto) Eos % (Auto) Baso % (Auto) Lymph # (Auto) Beckham # (Auto) Eos # (Auto) Baso # (Auto) Absolute Neuts (auto) pCO2 pO2 HCO3 ABG pH ABG Total CO2 ABG O2 Saturation ABG O2 Content ABG Base Excess ABG Hemoglobin ABG Carboxyhemoglobin POC ABG HHb (Measured) ABG Methemoglobin ABG O2 Capacity ABG Potassium Hgb O2 Saturation Sodium Chloride Glucose Lactate Mechanical Rate FiO2 Tidal Volume PEEP Crit Value Called To Crit Value Called By Blood Gas Notified Time Potassium Carbon Dioxide Anion Gap BUN Creatinine Est GFR ( Amer) Est GFR (Non-Af Amer) POC Glucose (mg/dL) 308 H 328 H Random Glucose Calcium Total Bilirubin AST ALT Alkaline Phosphatase Total Protein Albumin Globulin Albumin/Globulin Ratio Arterial Blood Potassium Blood Type A NEGATIVE Antibody Screen Negative Crossmatch See Detail BBK History Checked Patient has bt Radiology Impressions: Radiology Impressions Chest X-Ray 05/05/18 06:00 IMPRESSION: Improved vascular congestion and perihilar infiltrates EKG/Cardiology Studies: Cardiology / EKG Studies 05/05/18 00:01 EKG [ELECTROCARDIOGRAM] Stat Comment: Reason For Exam: RAPID HEART RATE Does Patient Have a Pacemaker?: No 05/05/18 11:45 ELECTROCARDIOGRAM DAILY Comment: Reason For Exam: chest pain Critical Care Progress Note - Nutrition Nutrition: Nutrition Category Date Time Status Pureed [Dysphagia/Modified Consistency Diet] [DIET] Diets 05/02/18 Lunch Ordered Attending/Attestation - Attestation I have personally seen and examined this patient.: Yes I have fully participated in the care of the patient.: Yes I have reviewed all pertinent clinical information: Yes Notes (Text): 05/05/18 16:[address] Blandon note
--- NOTE | 2018-05-05 15:20 | CP.PCM.CON ---
History of Present Illness - History of Present Illness History of Present Illness: Palliative consult requested by Dr Javon Devi Reason: Goals of care 88 year old female with history of Parkinson's, who initially presented to the hospital on 04/26/18 after suffering a mechanical fall resulting in a left ankle fracture. During this hospitalization she developed a N STEMI which progressed to PEA> ACLS> intubation. She is s/p cardiac catheterization which revealed triple vessel disease and is s/p metal stent placment to LAD and stent X2 to circumflex branch. PMHx: Parkinson disease, gastric cancer , CLL,HTN,DM,anemia,frequent falls PSHx:subtotal gastrectomy Social History: Former smoker, no alcohol or drug use Family History:Non contributory Advance Care Planning: She does not have an Advanced Directive Review of Systems : Unable to obtain, intubated Past Patient History - Infectious Disease Hx of Infectious Diseases: None - Tetanus Immunizations Tetanus Immunization: Unknown - Past Social History Smoking Status: Current Some Days Smoker - CARDIAC Hx Pacemaker: No - PULMONARY Hx Respiratory Disorders: No - NEUROLOGICAL Hx Neurological Disorder: Yes Hx Dementia: Yes Hx Parkinson's Disease: Yes Hx Transient Ischemic Attacks (TIA): Yes - HEENT Hx HEENT Problems: No - RENAL Hx Chronic Kidney Disease: Yes - ENDOCRINE/METABOLIC Hx Diabetes Mellitus Type 2: Yes - HEMATOLOGICAL/ONCOLOGICAL Hx Cancer: No - INTEGUMENTARY Hx Dermatological Problems: Yes Hx Basil Cell: Yes - MUSCULOSKELETAL/RHEUMATOLOGICAL Hx Musculoskeletal Disorders: Yes Hx Arthritis: Yes Hx Falls: Yes Hx Fractures: Yes Hx Osteoporosis: Yes Hx Unsteady Gait: Yes - GASTROINTESTINAL Hx Gastrointestinal Disorders: Yes Hx Diverticulitis: Yes Hx Gastroesophageal Reflux: Yes Other/Comment: Gastric Cancer - GENITOURINARY/GYNECOLOGICAL Hx Urinary Tract Infection: Yes - PSYCHIATRIC Hx Psychophysiologic Disorder: Yes Hx Anxiety: Yes Hx Depression: Yes Hx Substance Use: No - SURGICAL HISTORY Hx Mastectomy: No - ANESTHESIA Hx Anesthesia Reactions: No Hx Malignant Hyperthermia: No Meds Allergies/Adverse Reactions: Allergies Allergy/AdvReac Type Severity Reaction Status Date / Time Penicillins Allergy ANAPHYLAXIS Verified 03/26/16 16:56 Sulfa (Sulfonamide Allergy ANAPHYLAXIS Verified 03/26/16 16:56 Antibiotics) - Medications Medications: Current Medications Acetaminophen (Tylenol 325mg Tab) 650 mg PO Q6H PRN PRN Reason: Fever >100.4 F Last Admin: 04/28/18 01:29 Dose: 650 mg Albuterol/Ipratropium (Duoneb 3 Mg/0.5 Mg (3 Ml) Ud) 3 ml IH [id number] PRN PRN Reason: Shortness of Breath Last Admin: 05/04/18 21:15 Dose: 3 ml Arformoterol Tartrate (Brovana) 15 mcg IH [id number] [facility] Last Admin: 05/05/18 07:40 Dose: 15 mcg Aspirin (Ecotrin) 81 mg PO DAILY [facility] Last Admin: 05/05/18 10:03 Dose: 81 mg Atorvastatin Calcium (Lipitor) 40 mg PO DIN [facility] Last Admin: 05/04/18 17:50 Dose: 40 mg Budesonide (Pulmicort Respules) 0.5 mg IH [id number] [facility] Last Admin: 05/05/18 07:40 Dose: 0.5 mg Carbidopa/Levodopa/Entacapone (Stalevo 150) 1 tab PO TID [facility] Last Admin: 05/05/18 10:04 Dose: Not Given Clopidogrel Bisulfate (Plavix) 75 mg PO DAILY [facility] Last Admin: 05/05/18 10:03 Dose: 75 mg Dextrose (Dextrose 50% Inj) 0 ml IV STAT PRN; Protocol PRN Reason: Hypoglycemia Protocol Docusate Sodium (Colace) 100 mg PO BID [facility] Last Admin: 05/05/18 10:03 Dose: Not Given Furosemide (Lasix) 40 mg IVP Q12H [facility] Last Admin: 05/05/18 10:04 Dose: Not Given Heparin Sodium (Porcine) (Heparin) 5,000 units SC Q8 [facility]; Protocol Last Admin: 05/05/18 05:52 Dose: 5,000 units Aztreonam (Azactam 1 Gm) 100 mls @ 100 mls/hr IVPB Q8 [facility]; Protocol Stop: 05/06/18 09:46 Last Admin: 05/05/18 05:52 Dose: 100 mls/hr Dextrose (Dextrose 5% In Water 1000 Ml) 1,000 mls @ 0 mls/hr IV .Q0M PRN; Protocol PRN Reason: Hypoglycemia Protocol Metronidazole (Flagyl) 500 mg in 100 mls @ 100 mls/hr IVPB Q8 [facility]; Protocol Last Admin: 05/05/18 05:51 Dose: 100 mls/hr Milrinone Lactate/Dextrose (Primacor 20mg/100ml D5w) 100 mls @ 3.837 mls/hr IV .Q24H PRN; Protocol PRN Reason: TITRATE PER MD ORDER Last Admin: 05/04/18 09:05 Dose: 0.01 mcg/kg/min, 0.2 mls/hr Propofol (Diprivan) 1,000 mg in 100 mls @ 1.919 mls/hr IV .Q24H PRN; Protocol PRN Reason: TITRATE PER MD ORDER Last Titration: 05/05/18 09:37 Dose: 0 mcg/kg/min, 0 mls/hr NOREPINEPHRINE BIT/0.9 % NACL (Levophed 4 Mg/ 250 Ml Ns Premixed) 4 mg in 250 mls @ 15 mls/hr IV .[id number] PRN; Protocol PRN Reason: TITRATE PER MD ORDER Last Titration: 05/05/18 12:03 Dose: 2 mcg/min, 7.5 mls/hr Dexmedetomidine HCl (Precedex 400mcg/100ml) 400 mcg in 100 mls @ 3.198 mls/hr IV .Q24H PRN; Protocol PRN Reason: Agitation Last Titration: 05/05/18 09:50 Dose: 0.7 mcg/kg/hr, 11.192 mls/hr Insulin Human Lispro (Humalog High) 0 units SC Q6 [facility]; Protocol Last Admin: 05/05/18 09:39 Dose: 10 units Methylprednisolone (Solu-Medrol) 40 mg IVP Q12 [facility] Last Admin: 05/05/18 10:02 Dose: 40 mg Nicotine (Nicoderm Cq) 1 patch TD DAILY [facility] Last Admin: 05/05/18 10:03 Dose: 1 patch Pantoprazole Sodium (Protonix Inj) 40 mg IVP DAILY [facility] Last Admin: 05/05/18 10:02 Dose: 40 mg Sodium Bicarbonate (Sodium Bicarbonate Tab) 1,300 mg PO BID [facility] Stop: 05/10/18 10:01 Last Admin: 05/05/18 10:03 Dose: 1,300 mg Physical Exam - Constitutional Appears: Chronically Ill - Head Exam Head Exam: NORMOCEPHALIC - Eye Exam Eye Exam: PERRL - ENT Exam ENT Exam: Mucous Membranes Moist - Respiratory Exam Respiratory Exam: Decreased Breath Sounds Additional comments: intubated - Cardiovascular Exam Cardiovascular Exam: Tachycardia, +S1 - GI/Abdominal Exam GI & Abdominal Exam: Hypoactive Bowel Sounds, Soft - Extremities Exam Extremities exam: Positive for: pedal pulses present Additional comments: rosendo wrap left ankle - Skin Skin Exam: Dry, Pallor - Additional Findings Additional findings: palliative performance scale rating 10% Results - Vital Signs Recent Vital Signs: Last Vital Signs Temp 98.1 F 05/05/18 14:33 Pulse 112 H 05/05/18 14:33 Resp 21 05/05/18 14:33 BP 106/67 05/05/18 14:33 Pulse Ox 100 05/05/18 13:15 - Labs Result Diagrams: 05/05/18 06:15 05/05/18 06:15 Labs: Laboratory Results - last 24 hr 05/04/18 05/04/18 05/04/18 17:20 17:49 23:15 WBC 31.0 H* RBC 2.61 L Hgb 7.8 L Hct 24.6 L MCV 94.3 MCH 29.9 MCHC 31.7 RDW 15.9 H Plt Count 313 MPV 10.4 Neut % (Auto) Lymph % (Auto) [facility] % (Auto) Eos % (Auto) Baso % (Auto) Lymph # (Auto) [facility] # (Auto) Eos # (Auto) Baso # (Auto) Absolute Neuts (auto) pCO2 28 L pO2 137.0 H HCO3 15.1 L ABG pH 7.34 L ABG Total CO2 16.0 L ABG O2 Saturation 99.2 H ABG O2 Content ABG Base Excess -9.2 L ABG Hemoglobin ABG Carboxyhemoglobin POC ABG HHb (Measured) ABG Methemoglobin ABG O2 Capacity ABG Potassium 3.4 L Hgb O2 Saturation Sodium 152.0 H Chloride 123.0 H Glucose 254 H Lactate 1.4 Mechanical Rate 14 FiO2 50.0 Tidal Volume 400 PEEP 5 Crit Value Called To Dr good Crit Value Called By Kortney rt Blood Gas Notified Time 1723 Potassium Carbon Dioxide Anion Gap BUN Creatinine Est GFR ( Amer) Est GFR (Non-Af Amer) POC Glucose (mg/dL) 336 H Random Glucose Calcium Total Bilirubin AST ALT Alkaline Phosphatase Total Protein Albumin Globulin Albumin/Globulin Ratio Arterial Blood Potassium 3.4 L Blood Type Antibody Screen Crossmatch BBK History Checked 0205/05/18 05/05/18 23:15 03:16 06:02 WBC RBC Hgb Hct MCV MCH MCHC RDW Plt Count MPV Neut % (Auto) Lymph % (Auto) [facility] % (Auto) Eos % (Auto) Baso % (Auto) Lymph # (Auto) [facility] # (Auto) Eos # (Auto) Baso # (Auto) Absolute Neuts (auto) pCO2 pO2 HCO3 ABG pH ABG Total CO2 ABG O2 Saturation ABG O2 Content ABG Base Excess ABG Hemoglobin ABG Carboxyhemoglobin POC ABG HHb (Measured) ABG Methemoglobin ABG O2 Capacity ABG Potassium Hgb O2 Saturation Sodium 150 H Chloride 119 H Glucose Lactate Mechanical Rate FiO2 Tidal Volume PEEP Crit Value Called To Crit Value Called By Blood Gas Notified Time Potassium 3.8 Carbon Dioxide 16 L Anion Gap 18 BUN 89 H Creatinine 2.3 H Est GFR ( Amer) 24 Est GFR (Non-Af Amer) 20 POC Glucose (mg/dL) 370 H 353 H Random Glucose 280 H Calcium 7.0 L Total Bilirubin AST ALT Alkaline Phosphatase Total Protein Albumin Globulin Albumin/Globulin Ratio Arterial Blood Potassium Blood Type Antibody Screen Crossmatch BBK History Checked 05/05/18 05/05/18 05/05/18 06:15 06:15 06:20 WBC 23.4 H D RBC 2.28 L Hgb 6.9 L* Hct 21.3 L MCV 93.4 MCH 30.3 MCHC 32.4 RDW 15.7 H Plt Count 270 MPV 10.2 Neut % (Auto) 81.1 H Lymph % (Auto) 16.9 L [facility] % (Auto) 2.0 Eos % (Auto) 0.0 L Baso % (Auto) 0.0 Lymph # (Auto) 4.0 H [facility] # (Auto) 0.5 Eos # (Auto) 0.0 Baso # (Auto) 0.01 Absolute Neuts (auto) 18.98 H pCO2 28 L pO2 180.0 H HCO3 14.8 L ABG pH 7.33 L ABG Total CO2 15.7 L ABG O2 Saturation 98.9 H ABG O2 Content 10.4 L ABG Base Excess -10.1 L ABG Hemoglobin 7.3 L ABG Carboxyhemoglobin 1.3 POC ABG HHb (Measured) 1.1 ABG Methemoglobin 1.1 ABG O2 Capacity 10.5 L ABG Potassium Hgb O2 Saturation 96.5 Sodium 151 H Chloride 122 H Glucose Lactate Mechanical Rate FiO2 50.0 Tidal Volume PEEP Crit Value Called To Crit Value Called By Blood Gas Notified Time Potassium 3.6 Carbon Dioxide 16 L Anion Gap 16 BUN 97 H Creatinine 2.3 H Est GFR ( Amer) 24 Est GFR (Non-Af Amer) 20 POC Glucose (mg/dL) Random Glucose 281 H Calcium 6.8 L* Total Bilirubin 0.3 AST 39 H ALT 26 Alkaline Phosphatase 88 Total Protein 4.2 L Albumin 2.0 L Globulin 2.2 Albumin/Globulin Ratio 0.9 L Arterial Blood Potassium Blood Type Antibody Screen Crossmatch BBK History Checked 05/05/18 05/05/18 05/05/18 07:21 09:50 11:16 WBC RBC Hgb Hct MCV MCH MCHC RDW Plt Count MPV Neut % (Auto) Lymph % (Auto) [facility] % (Auto) Eos % (Auto) Baso % (Auto) Lymph # (Auto) [facility] # (Auto) Eos # (Auto) Baso # (Auto) Absolute Neuts (auto) pCO2 pO2 HCO3 ABG pH ABG Total CO2 ABG O2 Saturation ABG O2 Content ABG Base Excess ABG Hemoglobin ABG Carboxyhemoglobin POC ABG HHb (Measured) ABG Methemoglobin ABG O2 Capacity ABG Potassium Hgb O2 Saturation Sodium Chloride Glucose Lactate Mechanical Rate FiO2 Tidal Volume PEEP Crit Value Called To Crit Value Called By Blood Gas Notified Time Potassium Carbon Dioxide Anion Gap BUN Creatinine Est GFR ( Amer) Est GFR (Non-Af Amer) POC Glucose (mg/dL) 308 H 328 H Random Glucose Calcium Total Bilirubin AST ALT Alkaline Phosphatase Total Protein Albumin Globulin Albumin/Globulin Ratio Arterial Blood Potassium Blood Type A NEGATIVE Antibody Screen Negative Crossmatch See Detail BBK History Checked Patient has bt Assessment & Plan - Assessment and Plan (Free Text) Assessment: 88 year old female with history of Parkinson disease, HTN, DM,CKD, gastric cancer, CLL who is admitted with N STEMI, acute systolic heart failure, s/p cardiopulmonary arrest, triple vessel disease, anemia, transaminitis, LILIAN and left ankle fracture Patients son and daughter at bedside. Family has been updated of her condition by the medical team. Goals of care discussed at length Family aware that prognosis is extremely guarded. Family does not want the patient kept alive on " machines". Family does not want her to be resuscitated if her heart fails. DNR directive signed by son, Marek. Discussion about option for comfort care also took place. Family feels that she is suffering and that they do not want to prolong her life under these circumstances. They are considering terminal extubation. Process for withdrawal of life prolonging measures explained in detail. Questions answered. Family likely to proceed with terminal extubation later this evening. Psychosocial support provided. Spiritual support requested, called for last rites. Time spent in goals of care, advance care planning and end of life counseling, 60 minutes Plan: Goals of care and advance care planning End of life counseling Continue all current medical care as ordered by CCU team until decision made by family
--- NOTE | 2018-05-05 15:33 | PN ---
DATE: 05/05/2018 SUBJECTIVE: The patient was seen and examined at bedside. She appears to be restless. Her heart rate is 145, blood pressure varies between 97 systolic and 105 systolic. End-tidal CO2 on the monitor 26, oxygen saturation 100% on 40% FIO2. The patient is on PRVC 400//. The patient had three stents placed yesterday by Dr. Page. The patient is off of pressors right now. We will put propofol on hold and will continue with Precedex, and if need be, we will restart norepinephrine. PHYSICAL EXAMINATION: GENERAL: The patient is intubated. VITAL SIGNS: Text. ENT: Head and neck atraumatic. NECK: Text. CARDIOPULMONARY: Text. LUNGS: Clear to auscultation bilaterally. HEART: Regular rate and rhythm. S1, S2 distant. ABDOMEN: Soft, nontender, nondistended. MUSCULOSKELETAL: Trace bilateral pedal and ankle edema. NEURO: The patient was seen moving all extremities spontaneously. SKIN: Moist. PSYCH: The patient is sedated. LABORATORY DATA: WBC 23.4 down from 31, hemoglobin 6.9, platelet count 217. Sodium 151, potassium 3.6, chloride 122, BUN 97, creatinine 2.3, glucose 308, calcium 6.8, AST 39, ALT 26, total bilirubin 0.3. MEDICATIONS: Tylenol p.r.n., Brovana, aspirin, Lipitor, aztreonam, Pulmicort, carbidopa, levodopa, Plavix, Precedex, Colace, Flagyl. Lasix (will put on hold for now as the patient is borderline hypotensive). The patient made 300 mL of urine overnight. Heparin subcu, regular insulin sliding scale high protocol, Solu-Medrol 40 mg IV every 12 hours, norepinephrine, Protonix, propofol. ASSESSMENT AND PLAN: This is 88-year-old lady with congestive heart failure exacerbation secondary to non-ST elevated myocardial infarction status post coronary angiography/percutaneous coronary intervention with three stents placed. The patient was also recovering from septic shock secondary to Bacteroides fragilis. The patient is on Flagyl and ID service is following her as well. 1. Neuro: We will stop propofol and start Precedex with Versed p.r.n. If need be, we will add fentanyl to keep the patient comfortable.. Stopping propofol may eliminate some contributing factors to hypotension and starting Precedex may also potentially help with heart rate control as well, especially if anxiety/agitation is driving force behind it. If that will not be enough, we will consider amiodarone drip. 2. Pulmonary: We will continue with protective lung ventilation strategy including tidal volume 4 to 8 mL per predicted body weight and plateau pressure less than 30 cm of water. Head of bed elevated to more than 35 degrees. Oral hygiene. Conservative fluid and oxygen management. Once hemodynamically stabilized, we will consider sedation vacation and weaning trials. 3. GI: The patient is n.p.o. on GI prophylaxis. 4. ID: The patient is on Flagyl for bacteroides fragilis bacteremia. ID service is following the patient as well. 5. Endocrine. We will start the patient on insulin drip to maintain blood glucose within 140-180 range according to [employer] trial. 6. Renal: The patient had creatinine bumped a little bit to 2.3 from 2.1, most likely related to exposure to contrast of yesterday PCI procedure. Urine output slowed down as well to 300 mL over the last 12 hours. We will monitor that and nephrology service is on board as well. We will try to maintain euvolemia, glycemia, normothermia and oxygen saturation more than 90%. We will try to avoid hyperchloremia. 7. Heme: The patient's hemoglobin is 6.9 which is mostly related to anemia of critical illness and related to that bone marrow suppression. We will transfuse 2 units of blood and maintain hemoglobin between 7 and 9. I will start conversation with family about advance directives at present time. Addendum: patient's family decided to proceed with DNR/DNI order and comfort care only once all family member get togather at bedside. Will honor their wishes ccm time 40 min Yonny Connell MD [facility]
--- NOTE | 2018-05-05 15:54 | CP.PCM.PCO ---
Physician Communication Note - Physician Communication Note Physician Communication Note: pt. intubated,Family likely to proceed w/ terminal extubation later this pm
[2018-05-05] MEDS ORDERED: Morphine 2 mg/ml ISec IVP ONE (16:28)
[2018-05-05] MEDS ORDERED: Morphine PCA 1 mg/ml (30ml) 30 ML IV PRN ×2 (16:28→18:10)
[2018-05-05] MEDS ORDERED: Morphine 2 mg/ml ISec IVP STA (17:29)
[2018-05-05 22:54] VITALS: TEMP 98.7
[2018-05-05 22:56] VITALS: BP 78/32
--- NOTE | 2018-05-05 22:56 | CARD ---
APPROVED REPORT Date of service: 05/05/2018 EKG Measurement Heart [id number] <Conclusion> Accelerated Junctional rhythm with retrograde conduction Intraventricular conduction delay of LBBB type Left anterior fascicular block Anteroseptal infarct, age undetermined ST & T wave abnormality, consider lateral ischemia Abnormal ECG
--- NOTE | 2018-05-06 04:44 | CP.PCM.PRO ---
<Agustín Jean - Last Filed: 05/06/18 04:44> Pronouncement of Note - Clinical Findings Physical Exam: No Response Verbal/Painful Stimuli, Absent Peripheral Pulses{Carotid & Femoral}, Absent Heart & Breath Sounds, No Pupillary Light Reflex, No Corneal Reflex, Pupils Fixed & Dilated, Absence of Vital Signs - Pronouncement Time Time of Pronouncement of : 04:30 - Notifications Pronouncement Notifications: Family Notified, Atending Notified Stone Planer Notified: No - Autopsy Autopsy Requested: No - [place] [id number] <Zackary Rico - Last Filed: 05/06/18 06:47> Attending/Attestation - Attestation I have personally seen and examined this patient.: No I have fully participated in the care of the patient.: No I have reviewed all pertinent clinical information: No
[2018-05-06 05:27] VITALS: PULSE 47; RESP 8; O2SAT 73
--- NOTE | 2018-05-07 00:18 | DS ---
ADMITTING DIAGNOSES: Acute fracture of the distal left fibula and Parkinson disease with recurrent falls. DISCHARGE DIAGNOSES: PEA arrest, acute hypoxic respiratory failure s/p intubation, NSTEMI s/p PCI with BMS stent placement x 3, LILIAN secondary to ATN, septic shock secondary to intra-abdominal source and acute fracture of the distal left fibula. SECONDARY DIAGNOSES: Parkinson disease, hypertension, anemia of chronic disease, [id number] diabetes mellitus, history of gastric cancer s/p subtotal gastrectomy and history of chronic lymphocytic leukemia. CONSULTATIONS: Dr. Hewitt (Infectious Disease), Dr. Madera (Nephrology), Dr. Guevara (Obstetrics/Gynecology), Dr. Vogel (Neurology), Dr. Aguilar (Pulmonary & Critical Care Medicine), Dr. Hendrix (Orthopedic Surgery) and Dr. Page (Cardiology). HISTORY OF PRESENT ILLNESS: The patient is an 88-year-old woman with a past medical history of Parkinson disease who presented s/p mechanical fall with resultant left ankle trauma. The patient has been noted by her son to be deteriorating over the past several weeks with multiple falls at home. Arrangements were being made for home services and physical therapy. On the day of presentation to the ED she sustained another mechanical fall with resultant trauma to her left ankle. She reported immediate onset of severe pain and inability to bear weight as well as edema and bruising. Due to the severe pain, she was brought to the ED for evaluation. In the ED she was afebrile and hemodynamically stable but in moderate distress secondary to left ankle pain. Radiographs demonstrated an acute displaced fracture to the distal left fibula. She was started on analgesics and subsequently admitted to the general medical [facility] for orthopedic evaluation. HOSPITAL COURSE: Upon admission to the general medical [facility] she was evaluated by Dr. Hendrix of Orthopedic Surgery. Recommendations were made for conservative medical care and the patient was advised that the fracture would heal on its own. On her first night in the hospital she became slightly agitated and removed her nasal cannula. She subsequently became tachypneic and developed respiratory distress associated with tachycardia (pulse in the 140s) and hypoxia (oxygen saturation of 80%). She complained of mild chest tightness associated with these symptoms and was evaluated by the house physician. She was placed on a Venti-mask and transferred to the telemetry [facility] for closer monitoring. Of note, a troponin was obtained which was elevated and she was started on Heparin ip. A consultation was also placed with Dr. Page of Cardiology for further evaluation and continued management of NSTEMI. After being transferred to the telemetry [facility] she was maintained on the Heparin drip and started on Aspirin and Plavix. Unfortunately her clinical status further deteriorated and she developed PEA arrest. ACLS protocol was initiated and after 10 minutes she was resuscitated and transferred to the CCU for continued care. Unfortunately in the CCU she continued to decline with development of transaminitis secondary to shock liver and acute kidney injury secondary to acute tubular necrosis. Imaging studies revealed a questionable uterine mass and Dr. Guevara of Obstetrics/Gynecology was consulted. After reviewing the imaging studies recommendations were made for an MRI of the abdomen to better evaluate the area of concern but given the patient's clinical instability she was not a candidate for MRI. She was eventually successfully extubated and weaned off vasopressors. After improvement in her renal dysfunction she was taken to the cardiac catheterization lab where she was found to have severe triple vessel CAD and underwent placement of 3 bare metal stents. She tolerated the procedure well and no postprocedure complications were noted. The patient was unfortunately unable to be extubated after her cardiac catheterization and continued to deteriorate. On hospital day #11 she was found by the nursing staff to be unresponsive and was pronounced at 4:40 a.m. DISPOSITION: The patient . Antonio Devi MD [facility]
== END 2018-05-06 04:40 | DRG 981 ==
LOC: ED 14:35 → ERH 18:50 → 5RNO 21:16 → 2RNO 04-28 05:37 → CCU 04-29 03:03
PROVIDERS: ADMIT Student in an Organized Health Care Education/Training Program; ATTEND Student in an Organized Health Care Education/Training Program
PROC: 05HM33Z Insertion of Infusion Device into Right Internal Jugular Vein, Percutaneous Approach (ICD-10-PCS; 2018-04-29)
PROC: B543ZZA Ultrasonography of Right Jugular Veins, Guidance (ICD-10-PCS; 2018-04-29)
PROC: 02713FZ Dilation of Coronary Artery, Two Arteries with Three Intraluminal Devices, Percutaneous Approach (ICD-10-PCS; principal; 2018-05-04)
PROC: 5A1945Z Respiratory Ventilation, 24-96 Consecutive Hours (ICD-10-PCS; 2018-05-04)
PROC: 0BH18EZ Insertion of Endotracheal Airway into Trachea, Via Natural or Artificial Opening Endoscopic (ICD-10-PCS; 2018-05-04)
PROC: 4A133B3 Monitoring of Arterial Pressure, Pulmonary, Percutaneous Approach (ICD-10-PCS; 2018-05-04)
PROC: 4A023N7 Measurement of Cardiac Sampling and Pressure, Left Heart, Percutaneous Approach (ICD-10-PCS; 2018-05-04)
PROC: B2111ZZ Fluoroscopy of Multiple Coronary Arteries using Low Osmolar Contrast (ICD-10-PCS; 2018-05-04)
PROC: B2151ZZ Fluoroscopy of Left Heart using Low Osmolar Contrast (ICD-10-PCS; 2018-05-04)
DX: S82.62XA Displaced fracture of lateral malleolus of left fibula, initial encounter for closed fracture (principal); I21.4 Non-ST elevation (NSTEMI) myocardial infarction; A41.89 Other specified sepsis; I50.21 Acute systolic (congestive) heart failure; N17.0 Acute kidney failure with tubular necrosis; J96.01 Acute respiratory failure with hypoxia; K72.00 Acute and subacute hepatic failure without coma; R65.21 Severe sepsis with septic shock; N39.0 Urinary tract infection, site not specified; G93.40 Encephalopathy, unspecified; E87.2 Acidosis; C85.90 Non-Hodgkin lymphoma, unspecified, unspecified site; C91.10 Chronic lymphocytic leukemia of B-cell type not having achieved remission; E87.0 Hyperosmolality and hypernatremia; I13.0 Hypertensive heart and chronic kidney disease with heart failure and stage 1 through stage 4 chronic kidney disease, or unspecified chronic kidney disease; I47.1 Supraventricular tachycardia; Z99.11 Dependence on respirator [ventilator] status; R57.0 Cardiogenic shock; I10 Essential (primary) hypertension; G20 Parkinson's disease; E11.9 Type 2 diabetes mellitus without complications; I25.10 Atherosclerotic heart disease of native coronary artery without angina pectoris; D63.8 Anemia in other chronic diseases classified elsewhere; Z85.6 Personal history of leukemia; Z85.028 Personal history of other malignant neoplasm of stomach; W18.30XA Fall on same level, unspecified, initial encounter; R29.6 Repeated falls; Z87.891 Personal history of nicotine dependence; Z86.73 Personal history of transient ischemic attack (TIA), and cerebral infarction without residual deficits; F03.90 Unspecified dementia, unspecified severity, without behavioral disturbance, psychotic disturbance, mood disturbance, and anxiety; B96.6 Bacteroides fragilis [B. fragilis] as the cause of diseases classified elsewhere; D64.89 Other specified anemias; E11.22 Type 2 diabetes mellitus with diabetic chronic kidney disease; E78.5 Hyperlipidemia, unspecified; E83.51 Hypocalcemia; F17.200 Nicotine dependence, unspecified, uncomplicated; F32.89 Other specified depressive episodes; J44.9 Chronic obstructive pulmonary disease, unspecified; K21.9 Gastro-esophageal reflux disease without esophagitis; K80.20 Calculus of gallbladder without cholecystitis without obstruction; M81.0 Age-related osteoporosis without current pathological fracture; N18.3 Chronic kidney disease, stage 3 (moderate); R13.10 Dysphagia, unspecified; Z79.82 Long term (current) use of aspirin; Z79.84 Long term (current) use of oral hypoglycemic drugs; Z87.11 Personal history of peptic ulcer disease; Z87.440 Personal history of urinary (tract) infections; Z88.0 Allergy status to penicillin; Z88.2 Allergy status to sulfonamides; Z90.3 Acquired absence of stomach [part of]; Z90.49 Acquired absence of other specified parts of digestive tract; Z91.81 History of falling; Z95.5 Presence of coronary angioplasty implant and graft